=== PATIENT | female | born 1935 | race African-American/Black ===

== ENCOUNTER → 2017-08-13 | Outpatient (CLI) | payer MEDICARE ==
[2017-08-13 09:50] LABS: Basophils # (A) 0.1 k/uL (0-0.2); Basophils % (A) 1 %; Eosinophils # (A) 0.1 k/uL (0-0.7); Eosinophils % (A) 1 %; HCT 45.4 % (34.0-46.0); HGB 14.6 gm/dL (11.4-16.0); Lymphocytes # (A) 1.9 k/uL (1.0-4.8); Lymphocytes % (A) 30 %; MCHC 32.1 g/dL (31.0-37.0); MCV 93.4 fL (80.0-100.0); Mean Platelet Volume 7.4; Monocytes # (A) 0.5 k/uL (0-1.0); Monocytes % (A) 9 %; Neutrophils # (A) 3.6 k/uL (1.3-7.7); Neutrophils % (A) 57 %; Platelet Count 377 k/uL (150-450); RBC 4.86 m/uL (3.80-5.40); RDW 13.8 % (11.5-15.5); WBC 6.4 k/uL (3.8-10.6)
[2017-08-13 10:21] LABS: Calcium 9.4 mg/dL (8.4-10.2); Potassium 3.8 mmol/L (3.5-5.1); Total Bilirubin 0.9 mg/dL (0.2-1.3); Total Protein 6.9 g/dL (6.3-8.2)
== END | disposition home or self-care (01) ==
LOC: LABWHC1 09:18
PROVIDERS: ATTEND Internal Medicine Critical Care Medicine
DX: I10 Essential (primary) hypertension (principal); J30.9 Allergic rhinitis, unspecified; J44.9 Chronic obstructive pulmonary disease, unspecified; R74.8 Abnormal levels of other serum enzymes
CPT/HCPCS: 36415; 80053; 82785; 85025

== ENCOUNTER → 2017-08-18 | Outpatient (CLI) | payer MEDICARE ==
--- NOTE | 2017-08-18 12:55 | CT ---
EXAMINATION TYPE: CT chest wo con DATE OF EXAM: 08/18/2017 COMPARISON: 10/30/2014 HISTORY: 81-year-old female Right lower lobe pneumonia TECHNIQUE: Contiguous axial scanning of the chest without IV contrast. Coronal and sagittal reconstru ctions performed. CT DLP: 237.4 mGycm Automated exposure control for dose reduction was used. FINDINGS: The heart is normal size without pericardial effusion. Coronary vessel calcifications are present in remarkable for coronary artery disease. Aorta normal caliber with mild atherosclerotic arch calcifications and conventional arch vessel branc derrick anatomy. Scattered nonenlarged mediastinal lymph nodes. No thoracic lymphadenopathy by CT size criteria. Marked emphysematous changes in the upper lungs with some stable strandy scarring in the right middle lobe and inferior lingula. There is some patchy density at the left base which has a linear appearan ce suggesting atelectasis or some progressive scarring compared to 2014. No tania consolidation or pl eural effusion. Visualized upper abdomen redemonstrates a dominant 5.4 cm cyst left liver lobe and smaller anterior 1 .3 cm cyst with punctate calcification. Cholecystectomy clips. Anterior splenule. Gentle reverse S-shaped scoliosis and associated disc/endplate degenerative change. No osseous destru ctive process. IMPRESSION: 1. COPD WITH AT LEAST MODERATE EMPHYSEMATOUS CHANGE. 2. STABLE STRANDY SCARRING RIGHT MIDDLE LOBE AND INFERIOR LINGULA. THERE ARE NEW STRANDY DENSITIES AT THE LEFT BASE SUGGESTING ATELECTASIS OR PROGRESSIVE SCARRING COMPARED TO 2014. NO ACUTE PROCESS SEEN . 3. PROMINENT 5.4 CM LEFT LIVER LOBE CYST REDEMONSTRATED.
== END | disposition home or self-care (01) ==
LOC: RADCTMAIN 11:52
PROVIDERS: ATTEND Internal Medicine Critical Care Medicine
DX: J44.9 Chronic obstructive pulmonary disease, unspecified (principal); J43.9 Emphysema, unspecified; J98.4 Other disorders of lung; Z88.5 Allergy status to narcotic agent
CPT/HCPCS: 71250

== ENCOUNTER → 2017-08-18 | Outpatient (CLI) | payer MEDICARE ==
[2017-08-18 15:50] LABS: Amylase 76 U/L (30-110); Lipase 173 U/L (23-300)
[2017-08-18 19:56] LABS: Helicobacter pylori IgG Abs 0.79 U/mL
[2017-08-18 20:20] LABS: Hepatitis A Antibody IgM Non-Reactive (Non-Reactive); Hepatitis B Core IgM Non-Reactive (Non-Reactive)
[2017-08-20 10:04] LABS: ALT 768 U/L (9-52); AST 420 U/L (14-36); Alkaline Phosphatase 161 U/L (38-126)
== END | disposition home or self-care (01) ==
LOC: LABWHC1 15:07
PROVIDERS: ATTEND Nurse Practitioner Adult Health
DX: R74.8 Abnormal levels of other serum enzymes (principal)
CPT/HCPCS: 36415; 80074; 82150; 83690; 84075; 84450; 84460; 86677

== ENCOUNTER → 2017-09-06 | Outpatient (CLI) | payer MEDICARE ==
--- NOTE | 2017-09-06 09:37 | US ---
EXAMINATION TYPE: US abdomen limited DATE OF EXAM: 09/06/2017 COMPARISON: CT scan 08/18/2017 CLINICAL HISTORY: elev liver enz R74.8, RUQ R10.11 Abn level serum e. History of liver cysts, elevate d liver enzymes, history of cholecystectomy EXAM MEASUREMENTS: Liver Length: 12.1 cm Gallbladder Wall: surgically absent CBD: 0.4 cm Right Kidney: 9.0 x 4.1 x 4.5 cm Pancreas: obscured by overlying midline bowel gas Liver: 4.5 x 5.5 x 5.6cm cyst left lobe with smaller 1.2cm septated cyst anterior Gallbladder: surgically absent Evidence for sonographic Munguia's sign: no CBD: wnl Right Kidney: visualized portions wnl, inferior pole limited by overlying bowel gas IMPRESSION: 1. Hepatic cysts
--- NOTE | 2017-09-06 10:05 | CT ---
EXAMINATION TYPE: CT abdomen pelvis wo con DATE OF EXAM: 09/06/2017 COMPARISON: 08/18/2017 HISTORY: RUQ pain, Increased liver enzymes, Abnormal level of other serum enzymes. S/P cholecystecto my CT DLP: 876 mGycm Automated exposure control for dose reduction was used. TECHNIQUE: Helical acquisition of images was performed from the lung bases through the pelvis. FINDINGS: LUNG BASES: Marked emphysematous changes in the upper lungs with some stable strandy scarring in the right middle lobe and inferior lingula. There is some patchy density at the left base which has a eddie ear appearance suggesting atelectasis or some progressive scarring compared to 2015. No tania consoli dation or pleural effusion. . LIVER/GB: Visualized upper abdomen redemonstrates a dominant 5.4 cm cyst left liver lobe and smaller anterior 1.3 cm cyst with punctate calcification. Postcholecystectomy clips noted. PANCREAS: No significant abnormality is seen. SPLEEN: No significant abnormality is seen. ADRENALS: No significant abnormality is seen. KIDNEYS: No significant abnormality is seen. URINARY BLADDER: No significant abnormality is seen. ADENOPATHY: None visualized. OSSEOUS STRUCTURES: Hypertrophic and degenerative changes spine noted.. BOWEL: No significant abnormality is seen. OTHER: Aorta of normal caliber. There is atherosclerotic changes. IMPRESSION: STABLE HEPATIC CYSTS.
== END | disposition home or self-care (01) ==
LOC: RADUSMAIN 08:45
PROVIDERS: ATTEND Internal Medicine Critical Care Medicine
DX: K76.89 Other specified diseases of liver (principal)
CPT/HCPCS: 74176; 76705

== ENCOUNTER → 2017-09-08 | Outpatient (CLI) | payer MEDICARE ==
[2017-09-08 15:31] LABS: Basophils # (A) 0.1 k/uL (0-0.2); Basophils % (A) 1 %; Eosinophils # (A) 0.1 k/uL (0-0.7); Eosinophils % (A) 1 %; HCT 45.6 % (34.0-46.0); HGB 14.3 gm/dL (11.4-16.0); Lymphocytes # (A) 1.7 k/uL (1.0-4.8); Lymphocytes % (A) 28 %; MCH 29.2 pg (25.0-35.0); MCHC 31.5 g/dL (31.0-37.0); MCV 92.9 fL (80.0-100.0); Mean Platelet Volume 7.2; Monocytes # (A) 0.4 k/uL (0-1.0); Monocytes % (A) 7 %; Neutrophils # (A) 3.9 k/uL (1.3-7.7); Neutrophils % (A) 62 %; Platelet Count 363 k/uL (150-450); RBC 4.91 m/uL (3.80-5.40); RDW 13.7 % (11.5-15.5); WBC 6.2 k/uL (3.8-10.6)
[2017-09-08 15:47] LABS: Albumin 4.2 g/dL (3.5-5.0); Calcium 9.9 mg/dL (8.4-10.2); Total Bilirubin 0.3 mg/dL (0.2-1.3)
[2017-09-08 20:10] LABS: Iron Saturation 41.24 (12.00-45.00); Protein, Total 6.8 g/dL (6.2-8.2)
[2017-09-09 11:47] LABS: Ceruloplasmin 30.6 mg/dL (20.0-60.0)
== END | disposition home or self-care (01) ==
LOC: LABWHC1 15:10
PROVIDERS: ATTEND Internal Medicine Gastroenterology
DX: R94.5 Abnormal results of liver function studies (principal)
CPT/HCPCS: 36415; 80053; 82103; 82390; 82728; 83516; 83540; 83550; 84165; 85025; 86038

== ENCOUNTER → 2017-11-29 | Outpatient (CLI) | payer MEDICARE, BC ==
[2017-11-29 07:43] LABS: Basophils # (A) 0.1 k/uL (0-0.2); Basophils % (A) 1 %; Eosinophils # (A) 0.3 k/uL (0-0.7); Eosinophils % (A) 3 %; HCT 43.8 % (34.0-46.0); HGB 14.5 gm/dL (11.4-16.0); Lymphocytes # (A) 1.9 k/uL (1.0-4.8); Lymphocytes % (A) 22 %; MCH 31.6 pg (25.0-35.0); MCHC 33.1 g/dL (31.0-37.0); MCV 95.5 fL (80.0-100.0); Mean Platelet Volume 6.4; Monocytes # (A) 0.4 k/uL (0-1.0); Monocytes % (A) 5 %; Neutrophils # (A) 5.8 k/uL (1.3-7.7); Neutrophils % (A) 69 %; Platelet Count 297 k/uL (150-450); RBC 4.59 m/uL (3.80-5.40); RDW 12.8 % (11.5-15.5); WBC 8.5 k/uL (3.8-10.6)
--- NOTE | 2017-11-29 08:57 | CT ---
EXAMINATION TYPE: CT sinus wo con DATE OF EXAM: 11/29/2017 COMPARISON: CT facial bones February 16, 2013 HISTORY: Chronic sinusitis with nasal/sinus polyps per order, moderate persistent asthma with acute e xacerbation . CT DLP: 635.1 mGycm. Automated Exposure Control for Dose Reduction was Utilized. TECHNIQUE: CT scan of the sinuses is performed without contrast, axial images are obtained, coronal r eformatted images are also reviewed. FINDINGS: The paranasal sinuses including the frontal, ethmoid, sphenoid, and maxillary sinuses bila terally are well-aerated without abnormal opacification. The ostiomeatal complex is patent bilateral ly on the coronal images. Nasal septum remains slightly deviated to right of midline Visualized portion of mastoid air cells show no abnormal opacification. The globes are intact bilate rally. Visualized brain parenchyma shows fairly moderate diffuse cerebral atrophy and chronic small v essel ischemic change . IMPRESSION: The sinuses remain clear and the ostiomeatal complex remains patent bilaterally.
== END | disposition home or self-care (01) ==
LOC: RADCTMAIN 07:03
PROVIDERS: ATTEND Allergy & Immunology
DX: J45.41 Moderate persistent asthma with (acute) exacerbation (principal)
CPT/HCPCS: 36415; 70486; 82785; 85025

== ENCOUNTER → 2017-12-16 | Outpatient (CLI) | payer MEDICARE, BC ==
[2017-12-16 15:18] LABS: Basophils % (A) 1 %; Eosinophils # (A) 0.2 k/uL (0-0.7); Eosinophils % (A) 2 %; HCT 43.9 % (34.0-46.0); HGB 14.2 gm/dL (11.4-16.0); Lymphocytes # (A) 1.8 k/uL (1.0-4.8); Lymphocytes % (A) 25 %; MCHC 32.4 g/dL (31.0-37.0); MCV 95.5 fL (80.0-100.0); Mean Platelet Volume 6.7; Monocytes # (A) 0.5 k/uL (0-1.0); Monocytes % (A) 6 %; Neutrophils # (A) 4.5 k/uL (1.3-7.7); Neutrophils % (A) 64 %; Platelet Count 482 k/uL (150-450); RBC 4.59 m/uL (3.80-5.40); RDW 12.8 % (11.5-15.5); WBC 7.1 k/uL (3.8-10.6)
[2017-12-16 15:25] LABS: Albumin 4.3 g/dL (3.5-5.0); Calcium 9.8 mg/dL (8.4-10.2); Potassium 4.5 mmol/L (3.5-5.1); Total Bilirubin 0.4 mg/dL (0.2-1.3); Total Protein 6.8 g/dL (6.3-8.2)
[2017-12-17 09:29] LABS: Alternaria alternata IgE <0.10 kU/L; Birch IgE <0.10 kU/L; Cat Epith & Dander IgE <0.10 kU/L; Cockroach IgE <0.10 kU/L; Dermato. farinae IgE 0.11 kU/L; Dog Dander IgE <0.10 kU/L; Elm IgE <0.10 kU/L; Maple (Box Elder) IgE <0.10 kU/L; Oak IgE <0.10 kU/L; Ragweed,Common IgE <0.10 kU/L; Red Top (Bentgrass) IgE <0.10 kU/L
== END | disposition home or self-care (01) ==
LOC: LABWHC1 14:53
PROVIDERS: ATTEND Internal Medicine Critical Care Medicine
DX: J44.9 Chronic obstructive pulmonary disease, unspecified (principal); T78.40XA Allergy, unspecified, initial encounter; R94.5 Abnormal results of liver function studies
CPT/HCPCS: 36415; 80053; 82785; 85025; 86003

== ENCOUNTER 2018-01-08 05:31 | Emergency (ER) | payer MEDICARE, BC ==
[2018-01-08] MEDS ORDERED: ALBUTEROL NEBULIZED 2.5 MG/3 ML INHALATION STA (05:57)
[2018-01-08 05:58] VITALS: RESP 18
[2018-01-08 06:09] LABS: Basophils # (A) 0.1 k/uL (0-0.2); Basophils % (A) 1 %; Eosinophils # (A) 0.4 k/uL (0-0.7); Eosinophils % (A) 4 %; HCT 46.2 % (34.0-46.0); HGB 15.2 gm/dL (11.4-16.0); Lymphocytes # (A) 2.2 k/uL (1.0-4.8); Lymphocytes % (A) 25 %; MCH 31.8 pg (25.0-35.0); MCHC 32.8 g/dL (31.0-37.0); Mean Platelet Volume 7.1; Monocytes # (A) 0.4 k/uL (0-1.0); Monocytes % (A) 4 %; Neutrophils # (A) 5.5 k/uL (1.3-7.7); Neutrophils % (A) 64 %; Platelet Count 302 k/uL (150-450); RBC 4.76 m/uL (3.80-5.40); RDW 12.7 % (11.5-15.5); WBC 8.6 k/uL (3.8-10.6)
[2018-01-08 06:15] LABS: Partial Thromboplastin Time 23.3 sec (22.0-30.0); Prothrombin Time 9.6 sec (9.0-12.0)
--- NOTE | 2018-01-08 06:18 | XR ---
EXAMINATION TYPE: XR chest 1V portable DATE OF EXAM: 01/08/2018 HISTORY: chest pain. REFERENCE: Previous study dated 01/04/2018. FINDINGS: The lungs are clear. Pleural spaces are clear. The heart is not enlarged.. IMPRESSION: NO ACTIVE CARDIOTHORACIC ABNORMALITY.
[2018-01-08 06:33] LABS: Albumin 3.9 g/dL (3.5-5.0); Calcium 9.3 mg/dL (8.4-10.2); Magnesium 2.4 mg/dL (1.6-2.3); Potassium 4.2 mmol/L (3.5-5.1); Total Bilirubin 0.5 mg/dL (0.2-1.3); Total Protein 6.4 g/dL (6.3-8.2)
[2018-01-08 06:36] LABS: Creatine Kinase 96 U/L (30-135)
[2018-01-08 06:49] LABS: Creatine Kinase MB 0.8 ng/mL (0.0-2.4); Troponin I <0.012 ng/mL (0.000-0.034)
--- NOTE | 2018-01-08 07:55 | ED ---
Chest Pain HPI - General Chief Complaint: Chest Pain Stated Complaint: chest discomfort Time Seen by Provider: 01/08/18 05:48 Source: patient Mode of arrival: ambulatory Limitations: no limitations - History of Present Illness Initial Comments: This patient is an 82-year-old woman with history of COPD who presents to be evaluated for chest pain. She states that the pain is in the substernal area and to both sides. The pain came on at rest and is not exertional. She had seen Dr. Carney, and was told that her bronchitis was flaring up and that she was given a prescription for amoxicillin and a steroid to take. The patient was concerned that the pain may also be related to her heart so she presents for evaluation here. She has not had any anginal type symptoms, including no diaphoresis, nausea or vomiting, lightheadedness or palpitations. She does admit to an increase in her baseline cough. MD Complaint: chest pain Onset/Timin -: days(s) Onset: during rest Pain Location: substernal, left chest, right chest Severity: mild Quality: other (Burning) Consistency: constant Improves With: nothing Worsens With: nothing Other Symptoms: cough Treatments Prior to Arrival: other (Amoxicillin) - Related Data Home Medications Medication Instructions Recorded Confirmed Aspirin 81 mg PO DAILY 10/30/14 01/08/18 Losartan Potassium 100 mg PO 10/30/14 01/08/18 Metoprolol Succinate [Toprol XL] 50 mg PO [facility] 10/30/14 01/08/18 Azithromycin [Zithromax] 500 mg PO DAILY 01/08/18 01/08/18 Omeprazole 20 mg PO 01/08/18 01/08/18 Allergies Allergy/AdvReac Type Severity Reaction Status Date / Time hydrocodone bitartrate AdvReac states Verified 04/10/16 07:59 [From Vicodin] "doesn't make me feel good" prednisone AdvReac Hallucinati Verified 04/10/16 07:59 ons Review of Systems ROS Statement: Those systems with pertinent positive or pertinent negative responses have been documented in the HPI. ROS Other: All systems not noted in ROS Statement are negative. Constitutional: Denies: fever, chills, weakness Respiratory: Reports: cough, dyspnea, wheezes. Denies: hemoptysis Cardiovascular: Reports: chest pain. Denies: palpitations, orthopnea, edema, syncope Gastrointestinal: Denies: abdominal pain, nausea, vomiting Genitourinary: Denies: dysuria, hematuria Musculoskeletal: Denies: back pain Skin: Denies: rash Neurological: Denies: headache EKG Findings - EKG Results: EKG: interpreted by SALINA HUERTA, sinus rhythm (Right proximal 75 bpm), normal axis , normal QRS, normal ST/T - AL, Pacemaker, Normal: Normal tracing: normal tracing Past Medical History Past Medical History: Asthma, COPD, Hypertension, Liver Disease Additional Past Medical History / Comment(s): Hx stomach ulcer,Large colon polyp removed 2 yrs ago,cysts on liver,urinary leakage History of Any Multi-Drug Resistant Organisms: None Reported Past Surgical History: Cholecystectomy, Hysterectomy, Orthopedic Surgery Past Anesthesia/Blood Transfusion Reactions: No Reported Reaction Additional Past Anesthesia/Blood Transfusion Reaction / Comment(s): no hx blood transfusion Past Psychological History: No Psychological Hx Reported Smoking Status: Former smoker Past Alcohol Use History: Occasional Past Drug Use History: None Reported - Past Family History Sister(s) Family Medical History: Cancer Additional Family Medical History / Comment(s): #1 sister colon,# 2 sister lung Father Family Medical History: Cancer Additional Family Medical History / Comment(s): prostate Mother Family Medical History: Asthma Additional Family Medical History / Comment(s): heart problems General Exam Limitations: no limitations General appearance: alert, in no apparent distress Head exam: Present: atraumatic, normocephalic Eye exam: Present: normal appearance ENT exam: Present: normal oropharynx Respiratory exam: Present: wheezes. Absent: respiratory distress, rales, rhonchi, stridor, accessory muscle use, decreased breath sounds, prolonged expiratory Cardiovascular Exam: Present: regular rate, normal rhythm, normal heart sounds. Absent: systolic murmur, diastolic murmur, rubs, gallop GI/Abdominal exam: Present: soft. Absent: distended, tenderness, guarding, rebound, rigid, mass Extremities exam: Present: normal inspection, normal capillary refill. Absent: pedal edema, calf tenderness Back exam: Present: normal inspection. Absent: CVA tenderness (R), CVA tenderness (L) Neurological exam: Present: alert Skin exam: Present: warm, dry, intact, normal color. Absent: rash Course Vital Signs 01/08/18 01/08/18 01/08/18 05:34 05:56 06:25 Temperature 98.6 F Pulse Rate 68 61 Pulse Rate [ 73 Privacy Manager ] Respiratory 20 18 Rate Blood Pressure 150/92 O2 Sat by Pulse 98 Oximetry 01/08/18 01/08/18 06:27 06:41 Temperature Pulse Rate 61 64 Pulse Rate [ Privacy Manager ] Respiratory 18 Rate Blood Pressure 157/74 O2 Sat by Pulse 96 Oximetry Disposition Clinical Impression: COPD with acute exacerbation, Chest pain Disposition: HOME SELF-CARE Condition: Good Instructions: Chest Pain (ED), COPD (Chronic Obstructive Pulmonary Disease) (ED ) Is patient prescribed a controlled substance at d/c from ED?: No Referrals: Sanju Ashley MD [Primary Care Provider] - 1-2 days
[2018-01-08 08:13] VITALS: BP 134/66; PULSE 61; TEMP 97.4
== END 2018-01-08 08:11 | disposition home or self-care (01) ==
LOC: EC 05:31
DX: J44.1 Chronic obstructive pulmonary disease with (acute) exacerbation (principal); I10 Essential (primary) hypertension; Z87.891 Personal history of nicotine dependence; Z79.82 Long term (current) use of aspirin; Z79.899 Other long term (current) drug therapy; Z88.5 Allergy status to narcotic agent; Z88.8 Allergy status to other drugs, medicaments and biological substances; Z82.5 Family history of asthma and other chronic lower respiratory diseases
CPT/HCPCS: 36415; 71045; 80053; 82550; 82553; 83735; 84484; 85025; 85610; 85730; 93005; 94640; 99285

== ENCOUNTER 2018-02-04 11:13 | Day surgery (SDC) | payer MEDICARE, BC ==
[2018-02-02 10:51] VITALS: BMI 28.3
[~2018-02-04 11:13] MED LIST: LACTATED RINGERS 1,000 ML IV SCH; LIDOCAINE 1% 20 ML VIAL (10MG/ML) FOR IV START INTRADERMA PRN; MIDAZOLAM 2 MG/2 ML VIAL IV PRN
[2018-02-04 13:06] VITALS: RESP 16; TEMP 98.2
[2018-02-04] MEDS ORDERED: PROPOFOL 10 MG/ML 20 ML VIAL IV ONE (13:44)
--- NOTE | 2018-02-04 13:53 | P.PCN ---
Date of Procedure: 02/04/18 Procedure(s) Performed: BRIEF HISTORY: Patient is a 82-year-old, pleasant, female, scheduled for an upper endoscopy as a part of value should of chronic cough and intermittent dysphagia to solids for the last several months duration.. PROCEDURE PERFORMED: Esophagogastroduodenoscopy with biopsy. PREOPERATIVE DIAGNOSIS: Intermittent dysphagia to solids and chronic cough. IV sedation per anesthesia. PROCEDURE: After informed consent was obtained, the patient was brought into the endoscopy unit. IV sedation was administered by Anesthesia under continuous monitoring. Initially the Olympus GIF-140 video endoscope was inserted into the mouth. Esophagus intubated without any difficulty. It was gradually advanced into the stomach and duodenum and carefully examined. The bulb and the second part of the duodenum appeared normal. The scope at this time was withdrawn to the stomach, adequately insufflated with air, and upon careful examination, mucosa of the antrum, body, cardia and the fundus appeared normal. The scope was then withdrawn into the esophagus. Small sliding Hiatal hernia noted. The GE junction was located at 39 cm from the incisors. The esophagus appeared normal. There were no erosions or ulcerations seen. Biopsies were done from the mid and distal esophagus and the patient tolerated the procedure well. IMPRESSION: 1. Small sliding-type hiatal hernia. 2. No evidence of esophagitis or esophageal stricture. RECOMMENDATIONS: The findings of this examination were discussed with the patient as well as a family. She was advised to follow with the biopsy results..
[2018-02-04 14:50] VITALS: BP 129/79; PULSE 94
== END 2018-02-04 15:04 | disposition home or self-care (01) ==
LOC: ORWHC2ENDO 11:13
PROVIDERS: ATTEND Internal Medicine Gastroenterology
DX: K44.9 Diaphragmatic hernia without obstruction or gangrene (principal); K20.9 Esophagitis, unspecified; Z88.5 Allergy status to narcotic agent; Z88.8 Allergy status to other drugs, medicaments and biological substances; J44.9 Chronic obstructive pulmonary disease, unspecified; Z79.899 Other long term (current) drug therapy; Z90.49 Acquired absence of other specified parts of digestive tract
CPT/HCPCS: 88305; 43239; J2704

== ENCOUNTER → 2018-05-04 | Outpatient (CLI) | payer MEDICARE, BC | LOC: LABWHC1 11:27 | PROVIDERS: ATTEND Internal Medicine Critical Care Medicine | DX: J44.1 Chronic obstructive pulmonary disease with (acute) exacerbation (principal) | CPT/HCPCS: 36415; 82784 ==

== ENCOUNTER → 2018-05-31 | Outpatient (CLI) | payer MEDICARE, BC ==
--- NOTE | 2018-06-02 10:03 | MM ---
Reason for exam: screening (asymptomatic). Last mammogram was performed 1 year and 2 months ago. History: Patient is postmenopausal. Family history of breast cancer in 2 cousins. Took estrogen for 21 years beginning at age 41. Physical Findings: A clinical breast exam by your physician is recommended on an annual basis and results should be correlated with mammographic findings. MG Screening Mammo w CAD Bilateral CC and MLO view(s) were taken. Prior study comparison: April 08, 2017, bilateral MG 3d screening mammo w/cad. March 03, 2016, bilateral MG 3d screening mammo w/cad. There are scattered fibroglandular densities. No suspicious abnormality. No significant changes when compared with prior studies. ASSESSMENT: Negative, BI-RAD 1 RECOMMENDATION: Routine screening mammogram of both breasts in 1 year.
== END | disposition home or self-care (01) ==
LOC: RADMAMWWP 13:43
PROVIDERS: ATTEND Internal Medicine
DX: Z12.31 Encounter for screening mammogram for malignant neoplasm of breast (principal)
CPT/HCPCS: 77067

== ENCOUNTER 2018-06-23 14:10 | Observation (INO) | payer MEDICARE, BC ==
[2018-06-23] MEDS ORDERED: ASPIRIN 81 MG PO STA (14:44)
--- NOTE | 2018-06-23 15:05 | XR ---
EXAMINATION TYPE: XR chest 2V DATE OF EXAM: 06/23/2018 COMPARISON: Chest x-ray January 08, 2018. HISTORY: Increasing chest pain since last night. TECHNIQUE: Frontal and lateral views of the chest are obtained. FINDINGS: There is chronic parenchymal change without suspicious focal air space opacity, pleural ef fusion, or pneumothorax seen. Slightly elevated left hemidiaphragm is redemonstrated. The cardiac manolo houette size is within normal limits with atherosclerotic change in the aortic knob. S-shaped scolios is is redemonstrated. Overlying EKG leads are again seen. IMPRESSION: Chronic changes without acute pulmonary process.
[2018-06-23 15:11] LABS: Basophils # (A) 0.1 k/uL (0-0.2); Basophils % (A) 1 %; Eosinophils # (A) 0.6 k/uL (0-0.7); Eosinophils % (A) 8 %; HCT 43.9 % (34.0-46.0); HGB 14.6 gm/dL (11.4-16.0); Lymphocytes # (A) 1.7 k/uL (1.0-4.8); Lymphocytes % (A) 22 %; MCH 31.1 pg (25.0-35.0); MCHC 33.3 g/dL (31.0-37.0); MCV 93.2 fL (80.0-100.0); Mean Platelet Volume 7.3; Monocytes # (A) 0.4 k/uL (0-1.0); Monocytes % (A) 5 %; Neutrophils # (A) 4.9 k/uL (1.3-7.7); Neutrophils % (A) 63 %; Platelet Count 327 k/uL (150-450); RBC 4.71 m/uL (3.80-5.40); RDW 13.4 % (11.5-15.5); WBC 7.7 k/uL (3.8-10.6)
[2018-06-23 15:21] LABS: Albumin 4.1 g/dL (3.5-5.0); Magnesium 2.1 mg/dL (1.6-2.3); Potassium 4.5 mmol/L (3.5-5.1); Total Bilirubin 0.6 mg/dL (0.2-1.3); Total Protein 7.1 g/dL (6.3-8.2)
[2018-06-23 15:26] LABS: Creatine Kinase 65 U/L (30-135)
[2018-06-23 15:29] LABS: INR 0.9 (<1.2); Partial Thromboplastin Time 23.9 sec (22.0-30.0); Prothrombin Time 9.9 sec (9.0-12.0)
[2018-06-23 15:39] LABS: Creatine Kinase MB 0.3 ng/mL (0.0-2.4); Troponin I <0.012 ng/mL (0.000-0.034)
[2018-06-23] MEDS ORDERED: NITROGLYCERIN SL TABS 0.4 MG TAB SUBLINGUAL PRN (15:54)
[2018-06-23] MEDS ORDERED: HEPARIN SODIUM,PORCINE 5,000 UNIT/ML 1 ML VIAL IV ONE (15:54)
--- NOTE | 2018-06-23 15:54 | ED ---
Chest Pain HPI - General Chief Complaint: Chest Pain Stated Complaint: Chest pain Time Seen by Provider: 06/23/18 14:36 Source: patient, RN notes reviewed Mode of arrival: wheelchair Limitations: no limitations - History of Present Illness Initial Comments: 82-year-old female presents emergency Department with chief complaint of chest pain. Patient states this started last night and has not resolved today. She does states that it waxes and wanes. Patient states it's in the substernal region. Patient states that she has a history of hypertension denies hyperlipidemia, diabetes. She does have underlying COPD. Patient states her primary care physician is Dr. Ashley. Patient also has Dr. Gilbert as her thread puller. She has not felt increased shortness of breath at home she has tried her home WITH no relief of symptoms. Patient takes an 81 mg aspirin daily. Patient denies any diaphoresis, nausea, vomiting, extremity pain. - Related Data Home Medications Medication Instructions Recorded Confirmed Aspirin 81 mg PO DAILY 10/30/14 02/04/18 Losartan Potassium 100 mg PO HS 10/30/14 02/04/18 Metoprolol Succinate [Toprol XL] 50 mg PO QAM 10/30/14 02/04/18 amLODIPine BESYLATE [Norvasc] 10 mg PO DAILY 02/02/18 02/04/18 Allergies Allergy/AdvReac Type Severity Reaction Status Date / Time hydrocodone bitartrate AdvReac states Verified 06/23/18 15:10 [From Vicodin] "doesn't make me feel good" prednisone AdvReac Hallucinati Verified 06/23/18 15:10 ons Review of Systems ROS Statement: Those systems with pertinent positive or pertinent negative responses have been documented in the HPI. ROS Other: All systems not noted in ROS Statement are negative. EKG Findings - EKG Comments: EKG Findings:: EKG performed at 14:48 normal sinus rhythm with a rate of 87 TN 158 QRS 84 QT/QTC 380/457 Past Medical History Past Medical History: Asthma, COPD, Hypertension, Liver Disease Additional Past Medical History / Comment(s): Hx stomach ulcer,,cysts on liver, urinary leakage History of Any Multi-Drug Resistant Organisms: None Reported Past Surgical History: Cholecystectomy, Hysterectomy, Orthopedic Surgery Additional Past Surgical History / Comment(s): KNEE SCOPE-UNSURE WHICH SIDE. COLONOSCOPY-LARGE POLYP REMOVED Past Anesthesia/Blood Transfusion Reactions: No Reported Reaction Additional Past Anesthesia/Blood Transfusion Reaction / Comment(s): no hx blood transfusion Past Psychological History: No Psychological Hx Reported Smoking Status: Former smoker Past Alcohol Use History: None Reported Past Drug Use History: None Reported - Past Family History Sister(s) Family Medical History: Cancer Additional Family Medical History / Comment(s): #1 sister colon,# 2 sister lung Father Family Medical History: Cancer Additional Family Medical History / Comment(s): prostate Mother Family Medical History: Asthma Additional Family Medical History / Comment(s): heart problems General Exam Limitations: no limitations General appearance: alert, in no apparent distress Head exam: Present: atraumatic, normocephalic, normal inspection Eye exam: Present: normal appearance, PERRL, EOMI. Absent: scleral icterus, conjunctival injection, periorbital swelling ENT exam: Present: normal exam, normal oropharynx, mucous membranes moist, TM's normal bilaterally Neck exam: Present: normal inspection, full ROM. Absent: tenderness, meningismus, lymphadenopathy Respiratory exam: Present: normal lung sounds bilaterally. Absent: respiratory distress, wheezes, rales, rhonchi, stridor Cardiovascular Exam: Present: regular rate, normal rhythm, normal heart sounds. Absent: systolic murmur, diastolic murmur, rubs, gallop, clicks GI/Abdominal exam: Present: soft, normal bowel sounds. Absent: distended, tenderness, guarding, rebound, rigid Back exam: Absent: CVA tenderness (R), CVA tenderness (L) Skin exam: Present: warm, dry, intact, normal color. Absent: rash Course Vital Signs 06/23/18 14:14 Temperature 98.4 F Pulse Rate 91 Respiratory 20 Rate Blood Pressure 150/73 O2 Sat by Pulse 95 Oximetry Chest Pain MDM - MDM 82-year-old female presented to emergency department for chest pain. Patient EKG, lab work and chest x-ray. No acute findings at this time. Patient will be started on heparin admitted for cardiac rule out. Disposition Clinical Impression: Chest pain Disposition: ADMITTED IP TO THIS [facility] Condition: Stable Referrals: Sanju Ashley MD [Primary Care Provider] - 1-2 days
[2018-06-23] MEDS ORDERED: HEPARIN SOD,PORK IN 0.45% NACL 25,000 UNIT in 0.45% NACL 1 250ML.BAG IV SCH (16:00)
--- NOTE | 2018-06-23 20:04 | HP ---
HISTORY AND PHYSICAL HISTORY OF PRESENT ILLNESS: Mrs. Mills is an 82-year-old female who presents to the emergency room with chest pain. She is a patient of Dr. Ashley, for whom I am covering. Apparently yesterday evening she developed some anterior/posterior sternal chest pain that lasted up to 15 minutes. She points right to the mid part of her sternum. No radiation of the pain. No nausea or vomiting. No definite pleuritic component to it. She states she did get over a cold about a week or so ago but has not had any other recent coughing or injury or trauma to the area. No fever or chills. The patient has not had pain like this before. Apparently it has been recurring throughout the night, and this morning in fact it was worse enough yesterday that she almost came to the emergency room. With the recurrence of the pain today, she returns to the emergency room at this time. The patient has no definite history of coronary artery disease, but she does have a history of hypertension. There is a previous smoking history and likely underlying COPD. She has a history of liver disease in the past. She has had previous surgeries that include cholecystectomy and hysterectomy. She has had previous arthroscopy and previous colonoscopy with removal of polyps in the past. HOME MEDICATIONS: Include: 1. Aspirin 81 mg. 2. Losartan 100 mg. 3. Metoprolol-XL 50 mg. 4. Amlodipine 10 mg daily. 5. Vitamin D3. 6. She is on pulmonary inhalers that include her Spiriva 1 capsule daily and Advair 500/50 one puff twice a day. ALLERGIES: She has had previous reactions apparently to prednisone with hallucinations, and Glenn affects her where she does not feel good, she states; no specific reaction. REVIEW OF SYSTEMS: Negative for any unusual headache. No visual disturbances. No nausea, vomiting. No fever, chills or cough at this time. No urinary or bowel symptomatology. No unusual edema. FAMILY HISTORY: Positive for a brother who had a myocardial infarction and also history of coronary artery disease with her mother. A sister with colon cancer and another sister with lung cancer. Her father apparently of prostate. Her mother also had asthma. SOCIAL HISTORY: She is a former smoker; states she quit 20 years ago. She does live locally with her elderly . No definite history of any excessive alcohol usage. PHYSICAL EXAMINATION: She is alert, sitting up on the stretcher in the emergency room. Her vital signs show temperature 98.4 with a pulse 91, respirations 20. Blood pressure was 150/73 but decreased to 142/76, and she was 95% saturated at one point, but last reading was 92%. Head and neck exam is atraumatic. Extraocular movements intact. Neck is not stiff. There is no adenopathy, thyromegaly or bruits detected. Lungs were clear to auscultation. Breast and pelvic exam deferred. Heart tones were regular without murmurs or rubs. Abdomen is soft and nontender. Extremities revealed no distal edema. Neurologically she is alert and oriented. No focal cranial nerve or peripheral nerve deficits at this time. LABORATORY VALUES: Normal CBC with a white count 7.7, hemoglobin 14.6 and a platelet count of 322. INR was 0.9. Electrolytes were unremarkable with potassium 4.5. BUN and creatinine were 11 and 0.85, giving her a GFR of 7. Blood sugar was 108. Other liver function tests all were unremarkable with normal AST and ALT. Troponin was less than 0.012. BNP was 117, albumin 4.1. The patient did have a chest x-ray which did not show any acute changes. EKG revealed normal sinus rhythm, also without any acute ischemic changes. OVERALL IMPRESSION AT THIS POINT: An 82-year-old female with a history of recurrent chest pain, substernal, with associated with risk factors including hypertension, smoking history, and family history positive. I had a long discussion with the patient at the bedside. Overall impression is chest pain of undetermined origin. Still possibility of underlying coronary artery disease. PLANS: At this point, plans are to continue with heparin therapy. Patient to be placed under observation. Follow-up enzymes to be performed. Cardiology consult. Further recommendations and treatment pending clinical response and results of above. MMODL / IJN: [id number] / JL
[2018-06-23] MEDS ORDERED: LOSARTAN 50 MG TAB PO SCH (21:00)
[2018-06-23] MEDS: SYMBICORT 160-4.5 MCG INHALER INHALATION SCH (21:11)
[2018-06-23 23:10] LABS: Creatine Kinase 60 U/L (30-135)
[2018-06-23 23:23] LABS: Creatine Kinase MB 0.3 ng/mL (0.0-2.4); Troponin I <0.012 ng/mL (0.000-0.034)
[2018-06-24 04:22] LABS: Mean Platelet Volume 6.9; Platelet Count 311 k/uL (150-450)
[2018-06-24 04:53] LABS: Creatine Kinase 63 U/L (30-135)
[2018-06-24 05:05] LABS: Creatine Kinase MB 0.3 ng/mL (0.0-2.4); Troponin I <0.012 ng/mL (0.000-0.034)
[2018-06-24 05:13] LABS: Cholesterol 181 mg/dL (<200); HDL Cholesterol 58 mg/dL (40-60); LDL Cholesterol,Calculated 107 mg/dL (0-99); Triglycerides 80 mg/dL (<150)
--- NOTE | 2018-06-24 07:42 | ECHOF ---
Referral Reason:chest pain MEASUREMENTS -------- HEIGHT: 170.2 cm WEIGHT: 81.6 kg BP: 150/73 RVIDd: 2.7 cm (< 3.3) IVSd: 0.9 cm (0.6 - 1.1) LVIDd: 3.6 cm (3.9 - 5.3) LVPWd: 0.9 cm (0.6 - 1.1) IVSs: 1.2 cm LVIDs: 2.6 cm LVPWs: 1.2 cm LAESV Index (A-L): 15.17 ml/m Ao Diam: 3.2 cm (2.0 - 3.7) AV Cusp: 1.9 cm (1.5 - 2.6) LA Diam: 2.5 cm (2.7 - 3.8) MV E Ajay: 0.65 m/s MV DecT: 165 ms MV A Ajay: 0.79 m/s MV E/A Ratio: 0.82 RAP: 5.00 mmHg RVSP: 17.38 mmHg FINDINGS -------- Sinus rhythm. This was a technically adequate study. The left ventricular size is normal. Left ventricular wall thickness is normal. Overall left vent ricular systolic function is normal with, an EF between 55 - 60 %. The right ventricle is normal in size and function. Normal LA size by volume 22+/-6 ml/m2. The right atrium is normal in size. There is mild aortic valve sclerosis. There is no evidence of aortic regurgitation. There is no e vidence of aortic stenosis. The mitral valve leaflets are mildly thickened. Mild mitral annular calcification present. There is trace to mild mitral regurgitation. Trace tricuspid regurgitation present. Right ventricular systolic pressure is normal at < 35 mmHg. There is no evidence of pulmonary hypertension. The pulmonic valve was not well visualized. The aortic root size is normal. Normal inferior vena cava with normal inspiratory collapse consistent with estimated right atrial pre ssure of 5 mmHg. There is no pericardial effusion. CONCLUSIONS -------- 1. Sinus rhythm. 2. This was a technically adequate study. 3. The left ventricular size is normal. 4. Left ventricular wall thickness is normal. 5. Overall left ventricular systolic function is normal with, an EF between 55 - 60 %. 6. Normal LA size by volume 22+/-6 ml/m2. 7. There is mild aortic valve sclerosis. 8. The mitral valve leaflets are mildly thickened. 9. Mild mitral annular calcification present. 10. There is trace to mild mitral regurgitation. 11. Trace tricuspid regurgitation present. 12. Right ventricular systolic pressure is normal at < 35 mmHg. 13. There is no evidence of pulmonary hypertension. 14. The pulmonic valve was not well visualized. 15. The aortic root size is normal. 16. There is no pericardial effusion. WARP SPOOLER: Nhan Buckner RDCS
[2018-06-24] MEDS: IPRATROPIUM 0.5 MG/2.5 ML NEBU INHALATION SCH ×2 (07:57→11:44)
--- NOTE | 2018-06-24 07:57 | P.PN ---
Progress Note - Text The patient is an 82-year-old female presented yesterday to the emergency room. She is a patient of Dr. Ashley for whom I am covering. Patient had recurrent substernal chest pain. She also has risk factors with hypertension, family history and previous smoking history. She does have underlying COPD. This morning patient states she has not had further problems with the chest pain. She has been on heparin through the night. Vital signs show a temperature 98.4 with a pulse of 70 respirations 18. Blood pressure 128/72 and she is 93% saturated on room air. She overall appears comfortable in no respiratory distress. She is alert and oriented. No focal neurological deficits. Laboratory The patient is anticoagulated on heparin with a PTT of 64.2. Troponins have been less than 0.0123. CPKs have been in the 60s 3. Cholesterol shows a mild LDL cholesterol elevation to 107 with total cholesterol is 181 and HDL is 58 and triglycerides are 80. Echocardiogram Showed LV size to be normal. Ejection fraction of 55-60%. Mild aortic valve sclerosis. Mild thickening of the mitral valve. Right ventricular systolic pressure was less than 35. Aortic root normal size. Impressions and plans Overall this 82-year-old female with recurrent chest pain and positive for risk factors has negative troponins. Have discussed with cardiology. Patient will be evaluated by them today. We' ll await their further recommendations. Discussed with patient and nursing staff this morning. We will continue her maintenance pulmonary medications for her COPD.
[2018-06-24] MEDS: SYMBICORT 160-4.5 MCG INHALER INHALATION SCH (07:58)
[2018-06-24 08:41] VITALS: PULSE 84; RESP 16; TEMP 98.2
[2018-06-24] MEDS ORDERED: METOPROLOL SUCCINATE (ER) 50 MG TAB.ER.24H PO SCH (09:00)
[2018-06-24] MEDS ORDERED: CHOLECALCIFEROL 1,000 UNIT TAB PO SCH (09:00)
[2018-06-24] MEDS ORDERED: ASPIRIN 325 MG TAB PO SCH (09:00)
[2018-06-24] MEDS ORDERED: amLODIPine 10 MG TAB PO SCH (09:00)
--- NOTE | 2018-06-24 10:34 | P.CRDCN ---
History of Present Illness History of present illness: This is a pleasant 82-year-old -[place] female past medical history significant for hypertension, dyslipidemia and COPD. She follows with Dr. Dietz in the office. We have been asked to see her in consultation with symptoms of tightness in the chest. She states she started with this tightness 2 nights ago while she was sitting down relaxing the pain ultimately subsided on its own but has been intermittent throughout the day yesterday pain is in the midsternal region and is associated with mild shortness of breath and wheezing. She denies any pain in the arm, back, neck or jaw. She also states she has been coughing intermittently over the previous week prior to this pain starting. She denies any further symptoms of chest discomfort since arriving to the hospital. She does continue to complain of mild shortness of breath with wheezing. She did receive a breathing treatment this morning and states that didn't seem to help mildly. Echocardiogram obtained reveals preserved left ventricular systolic function with ejection fraction 55-60%. EKG reveals sinus mechanism with no acute ST or T wave abnormalities noted. Chest x-ray reveals evidence of chronic changes with no acute cardiopulmonary process. Laboratory data reviewed, WBC 7.7, hemoglobin 14.6, platelets 311, sodium 142, potassium 4.5, creatinine 0.5, magnesium 2.1, cardiac enzymes negative 3, NT proBNP 117, LDL 107, HDL 58. Current cardiac medications include losartan 100 mg daily, amlodipine 10 mg daily, Toprol 50 mg daily and aspirin 81 mg daily. Most recent stress test obtained in the office 2014 with a Cardiolite stress test the patient walked for 3 minutes and achieved 85% of predicted maximum with no evidence of ischemia noted on EKG there was some mild apical defect noted with no reversibility. At the time of my exam: CONSTITUTIONAL: Denies fever. Denies chills. EYES: Denies blurred vision. Denies vision changes. Denies eye pain. EARS, NOSE, MOUTH & THROAT: Denies headache. Denies sore throat. Denies ear pain. CARDIOVASCULAR: Denies chest pain. Complains of shortness of breath. Denies orthopnea. Denies PND. Denies palpitations. RESPIRATORY: Complains of cough. GASTROINTESTINAL: Denies abdominal pain. Denies diarrhea. Denies constipation. Denies nausea. Denies vomiting. MUSCULOSKELETAL: Denies myalgias. INTEGUMENTARY: Denies pruitis. Denies rash. NEUROLOGIC: Denies numbness. Denies tingling. Denies weakness. PSYCHIATRIC: Denies anxiety. Denies depression. ENDOCRINE: Denies fatigue. Denies weight change. Denies polydipsia. Denies polyurina. GENITOURINARY: Denies burning, hematuria or urgency with micturation. HEMATOLOGIC: Denies history of anemia. Denies bleeding. Blood pressure 148/88 heart rate 84 afebrile maintaining oxygen saturation on room air GENERAL: This is a 82-year-old -[place] female in no apparent distress at the time of my examination. HEENT: Head is atraumatic, normocephalic. Pupils are equal, round. Sclerae anicteric. Conjunctivae are clear. Mucous membranes of the mouth are moist. Neck is supple. There is no jugular venous distention. No carotid bruit is heard. LUNGS: Expiratory wheezes, no rhonchi or rales. No chest wall tenderness is noted on palpation or with deep breathing. HEART: Regular rate and rhythm with soft systolic ejection murmur at the base, no rubs or gallops. S1 and S2 heard. ABDOMEN: Soft, nontender. Bowel sounds are heard. No organomegaly noted. EXTREMITIES: No evidence of peripheral edema and no calf tenderness noted. VASCULAR: Radial and dorsalis pedis pulses palpated, no evidence of clubbing. NEUROLOGIC: Patient is awake, alert and oriented x3. ASSESSMENT Chest pain, atypical for angina. An acute coronary event is ruled out with no EKG evidence of ischemia and negative cardiac enzymes. Ongoing wheezing and shortness of breath. Pain may be related to underlying exacerbation of COPD/ asthma. Hypertension Dyslipidemia COPD PLAN Echocardiogram has been obtained and reviewed. An acute coronary event has been ruled out. She continues to wheeze and have mild shortness of breath. We recommend discontinuation of heparin infusion and increase activity. She has no further symptoms of chest discomfort she is stable from a cardiac perspective. An appointment will be made for her to follow-up in the office for outpatient stress testing once her breathing and wheezing has subsided. Resume home cardiac medications. Thank you kindly for this consultation. Nurse Practitioner note has been reviewed, I agree with a documented findings and plan of care. Patient was seen and examined. Past Medical History Past Medical History: Asthma, COPD, Hypertension, Liver Disease, Myocardial Infarction ([place]) Additional Past Medical History / Comment(s): Hx stomach ulcer,cysts on liver > 20 years ,urinary leakage, small hiatal hernia, diverticulosis, arthritis, tinnitus leanna ears,"had a pne vaccine in past not sure of date, data analyst report writer unable to verify date at time of this admit,please f/u in am. Last Myocardial Infarction Date:: 40 years ago History of Any Multi-Drug Resistant Organisms: None Reported Past Surgical History: Cholecystectomy, Hysterectomy, Orthopedic Surgery Additional Past Surgical History / Comment(s): KNEE arthroscopy-UNSURE WHICH SIDE. COLONOSCOPY-LARGE POLYP REMOVED, egd Past Anesthesia/Blood Transfusion Reactions: No Reported Reaction Additional Past Anesthesia/Blood Transfusion Reaction / Comment(s): no hx blood transfusion Smoking Status: Former smoker - Past Family History Sister(s) Family Medical History: Cancer Additional Family Medical History / Comment(s): #1 sister colon,# 2 sister lung Father Family Medical History: Cancer Additional Family Medical History / Comment(s): prostate Mother Family Medical History: Asthma Additional Family Medical History / Comment(s): heart problems Medications and Allergies Home Medications Medication Instructions Recorded Confirmed Type Aspirin 81 mg PO DAILY 10/30/14 06/23/18 History Losartan Potassium 100 mg PO HS 10/30/14 06/23/18 History Metoprolol Succinate [Toprol XL] 50 mg PO QAM 10/30/14 06/23/18 History amLODIPine BESYLATE [Norvasc] 10 mg PO DAILY 02/02/18 06/23/18 History Cholecalciferol [Vitamin D3] 1,000 unit PO DAILY 06/23/18 06/23/18 History Fluticasone/Salmeterol [Advair 1 puff INHALATION RT-BID 06/23/18 06/23/18 History 500-50 Diskus] Tiotropium [place] [Spiriva] 1 cap INHALATION RT-DAILY 06/23/18 06/23/18 History Allergies Allergy/AdvReac Type Severity Reaction Status Date / Time hydrocodone bitartrate AdvReac states Verified 06/23/18 15:10 [From Vicodin] "doesn't make me feel good" prednisone AdvReac Hallucinati Verified 06/23/18 15:10 ons Physical Exam Vitals: Vital Signs Temp Pulse Pulse Resp BP BP Pulse Ox 06/24/18 08:08 76 06/24/18 08:01 74 94 L 06/24/18 08:00 98.2 F 84 16 148/88 100 06/24/18 03:59 70 18 06/24/18 03:50 98.4 F 70 18 128/72 93 L 06/24/18 00:00 78 18 06/23/18 23:54 98 F 78 18 113/65 92 L 06/23/18 20:00 98.4 F 69 18 159/68 93 L 06/23/18 18:00 80 142/76 92 L 06/23/18 16:00 82 16 134/80 98 06/23/18 15:30 73 16 132/78 95 06/23/18 14:14 98.4 F 91 20 150/73 95 Intake and Output 06/23/18 06/24/18 06/24/18 22:59 06:59 14:59 Other: Voiding Method Toilet Toilet Toilet # Voids 2 Weight 81.647 kg Results 06/24/18 04:03 06/23/18 15:05 Cardiac Enzymes 06/23/18 06/23/18 06/23/18 Range/Units 15:05 15:05 22:09 AST 24 (14-36) U/L CK-MB (CK-2) 0.3 0.3 (0.0-2.4) ng/mL Troponin I <0.012 <0.012 (0.000-0.034) ng/mL 06/24/18 Range/Units 04:03 AST (14-36) U/L CK-MB (CK-2) 0.3 (0.0-2.4) ng/mL Troponin I <0.012 (0.000-0.034) ng/mL Coagulation 06/23/18 06/23/18 06/24/18 Range/Units 15:05 22:09 04:03 PT 9.9 (9.0-12.0) sec APTT 23.9 70.2 H 64.2 H (22.0-30.0) sec Lipids 06/24/18 Range/Units 04:03 Triglycerides 80 (<150) mg/dL Cholesterol 181 (<200) mg/dL HDL Cholesterol 58 (40-60) mg/dL CBC 06/23/18 06/24/18 Range/Units 15:05 04:03 WBC 7.7 (3.8-10.6) k/uL RBC 4.71 (3.80-5.40) m/uL Hgb 14.6 (11.4-16.0) gm/dL Hct 43.9 (34.0-46.0) % Plt Count 327 311 (150-450) k/uL Comprehensive Metabolic Panel 06/23/18 Range/Units 15:05 Sodium 142 (137-145) mmol/L Potassium 4.5 (3.5-5.1) mmol/L Chloride 107 (98-107) mmol/L Carbon Dioxide 27 (22-30) mmol/L BUN 11 (7-17) mg/dL Creatinine 0.85 (0.52-1.04) mg/dL Glucose 108 H (74-99) mg/dL Calcium 10.0 (8.4-10.2) mg/dL AST 24 (14-36) U/L ALT 20 (9-52) U/L Alkaline Phosphatase 83 (38-126) U/L Total Protein 7.1 (6.3-8.2) g/dL Albumin 4.1 (3.5-5.0) g/dL Current Medications Generic Name Dose Route Start Last Admin Trade Name Freq PRN Reason Stop Dose Admin Amlodipine Besylate 10 mg 06/24/18 09:00 Norvasc PO DAILY [facility] Aspirin 81 mg 06/25/18 09:00 Aspirin PO DAILY [facility] Budesonide/Formoterol Fumarate 2 puff 06/23/18 20:00 06/24/18 07:58 Symbicort 160-4.5 Mcg Inhaler INHALATION 2 puff RT-BID KENDAL Administration Cholecalciferol 1,000 unit 06/24/18 09:00 Vitamin D3 PO DAILY KENDAL Ipratropium [place] 0.5 mg 06/24/18 08:00 06/24/18 07:57 Atrovent Nebulized INHALATION 0.5 mg RT-QID KENDAL Administration Losartan Potassium 100 mg 06/23/18 21:00 06/23/18 20:53 Cozaar PO 100 mg HS KENDAL Administration Metoprolol Succinate 50 mg 06/24/18 09:00 Toprol Xl PO QAM KENDAL Nitroglycerin 0.4 mg 06/23/18 15:54 Nitrostat SUBLINGUAL Q5M PRN Chest Pain Intake and Output 06/23/18 06/24/18 06/24/18 22:59 06:59 14:59 Other: Voiding Method Toilet Toilet Toilet # Voids 2 Weight 81.647 kg 06/24/18 04:03 06/23/18 15:05
[2018-06-24 12:42] VITALS: BP 134/81
--- NOTE | 2018-06-24 13:29 | DS ---
DISCHARGE SUMMARY Mrs. Mills is an 82-year-old female who presented to the emergency room with recurrent chest pain. She had risk factors with a history of hypertension and a previous smoking history along with a positive family history. Initial studies did not show evidence of acute changes and patient was placed in observation, underwent further testing which included serial enzymes which did not show evidence of an acute myocardial infarction. She also had an echocardiogram, which showed good ejection fraction of 55% to 60% and no major morphological abnormalities noted. Chest x- ray also was unremarkable. Other labs were generally stable. The patient was seen by Cardiology and at this point, she has been released for discharge by Cardiology to be seen in office for followup by Cardiology and also Dr. Ashley, her primary care physician. Medications will include her aspirin 81 mg, her vitamin D3 a 1000 units daily. Her Advair 500/50 one puff twice a day for her COPD, losartan 100 mg at bedtime for her hypertension along with metoprolol succinate 50 mg daily. She is also on Spiriva one capsule 18 mcg daily and amlodipine 10 mg daily. FINAL DISCHARGE DIAGNOSES BEIN. Recurrent chest pain with testing not revealing any definite evidence of underlying atherosclerotic heart disease or ischemia at this time with normal troponins in this 82-year-old female who has risk factors that include hypertension, hyperlipidemia, and family history of coronary artery disease. 2. The patient also has underlying chronic obstructive pulmonary disease. 3. Previous smoking history. 4. She has also previous surgeries that include a cholecystectomy and hysterectomy along with arthroscopy and history of colon polyps with a colonoscopy and previous removal of a polyp. MMODL / IJN: [id number] / MTDD
[2018-06-25] MEDS ORDERED: ASPIRIN 81 MG PO SCH (09:00)
== END 2018-06-24 12:48 | disposition home or self-care (01) ==
LOC: EC 14:10 → 1SOBS 16:06
PROVIDERS: ADMIT Internal Medicine; ATTEND Internal Medicine
DX: R07.2 Precordial pain (principal); I10 Essential (primary) hypertension; J44.9 Chronic obstructive pulmonary disease, unspecified; E78.5 Hyperlipidemia, unspecified; K76.9 Liver disease, unspecified; J44.1 Chronic obstructive pulmonary disease with (acute) exacerbation; I25.2 Old myocardial infarction; M19.90 Unspecified osteoarthritis, unspecified site; Z90.49 Acquired absence of other specified parts of digestive tract; Z90.710 Acquired absence of both cervix and uterus; Z86.010 Personal history of colon polyps; Z87.891 Personal history of nicotine dependence; Z87.11 Personal history of peptic ulcer disease; Z79.82 Long term (current) use of aspirin; Z79.899 Other long term (current) drug therapy; Z88.8 Allergy status to other drugs, medicaments and biological substances; Z88.5 Allergy status to narcotic agent; Z82.49 Family history of ischemic heart disease and other diseases of the circulatory system; Z80.1 Family history of malignant neoplasm of trachea, bronchus and lung; Z80.42 Family history of malignant neoplasm of prostate; Z80.0 Family history of malignant neoplasm of digestive organs
CPT/HCPCS: 96376; 96365; 96366; 99285; 36415; 94640 ×3; 94760; 93005; 93306; 83880; 80061; 80053; 82550 ×2; 82553 ×2; 83735; 84484 ×2; 85025; 85049; 85610; 85730 ×2; 71046; G0378 ×2; J1644 ×2

== ENCOUNTER 2018-08-07 23:12 | Inpatient (IN) | payer MEDICARE, BC ==
[2018-08-07] MEDS ORDERED: methylPREDNISolone SOD SUCCI 125 MG/2 ML VIAL IV STA (23:50)
[2018-08-07] MEDS ORDERED: IPRATROPIUM 0.5 MG/2.5 ML NEBU INHALATION STA (23:50)
[2018-08-07] MEDS ORDERED: ALBUTEROL NEBULIZED 2.5 MG/3 ML INHALATION STA (23:50)
[2018-08-08 00:03] LABS: Basophils # (A) 0.1 k/uL (0-0.2); Basophils % (A) 1 %; Eosinophils # (A) 0.5 k/uL (0-0.7); Eosinophils % (A) 3 %; HCT 41.8 % (34.0-46.0); HGB 13.7 gm/dL (11.4-16.0); Lymphocytes # (A) 2.4 k/uL (1.0-4.8); Lymphocytes % (A) 16 %; MCH 30.8 pg (25.0-35.0); MCHC 32.9 g/dL (31.0-37.0); MCV 93.7 fL (80.0-100.0); Mean Platelet Volume 6.6; Monocytes # (A) 0.7 k/uL (0-1.0); Monocytes % (A) 4 %; Neutrophils # (A) 11.4 k/uL (1.3-7.7); Neutrophils % (A) 75 %; Platelet Count 441 k/uL (150-450); RBC 4.46 m/uL (3.80-5.40); RDW 12.9 % (11.5-15.5); WBC 15.2 k/uL (3.8-10.6)
[2018-08-08 00:13] LABS: Albumin 3.7 g/dL (3.5-5.0); Calcium 9.4 mg/dL (8.4-10.2); Potassium 3.8 mmol/L (3.5-5.1); Total Bilirubin 0.5 mg/dL (0.2-1.3); Total Protein 6.7 g/dL (6.3-8.2)
[2018-08-08 00:18] LABS: INR 0.9 (<1.2)
[2018-08-08 00:19] LABS: Partial Thromboplastin Time 23.1 sec (22.0-30.0)
[2018-08-08 00:29] LABS: D-Dimer 0.69 mg/L FEU (<0.60)
--- NOTE | 2018-08-08 00:57 | XR ---
EXAM: XR Chest, 2 Views CLINICAL HISTORY: : difficulty breathing TECHNIQUE: Frontal and lateral views of the chest. COMPARISON: 06/23/18 FINDINGS: Lungs: Chronic interstitial changes. No consolidation. Pleural space: Unremarkable. No pneumothorax. Heart: Unremarkable. No cardiomegaly. Mediastinum: Unremarkable. Bones/joints: Unremarkable. IMPRESSION: No significant change compared to prior study
[2018-08-08] MEDS ORDERED: SODIUM CHLORIDE 0.9% 1,000 ML IV ONE (02:11)
--- NOTE | 2018-08-08 02:45 | CT ---
EXAM: CT Angiography Chest With Intravenous Contrast CLINICAL HISTORY: Reason: Pain TECHNIQUE: Axial computed tomographic angiography images of the chest with intravenous contrast using pulmonary embolism protocol. CTDI is 10.9 mGy and DLP is 231.5 mGy-cm. This CT exam was performed using one or more of the following dose reduction techniques: automated exposure control, adjustment of the mA and/or kV according to patient size, and/or use of iterative reconstruction technique. MIP reconstructed images were created and reviewed. Coronal and sagittal reformatted images were created and reviewed. COMPARISON: 08/18/17 FINDINGS: Pulmonary arteries: Unremarkable. No pulmonary embolism. Aorta: No acute findings. No thoracic aortic aneurysm. Lungs: Emphysematous changes the lungs with extensive parenchymal bulla in the upper lobes. Interval development of atelectasis in the left lung base Pleural space: Unremarkable. No significant effusion. No pneumothorax. Heart: Unremarkable. No cardiomegaly. No significant pericardial effusion. No evidence of RV dysfunction. Bones/joints: No acute fracture. No dislocation. Soft tissues: Unremarkable. Lymph nodes: Unremarkable. No enlarged lymph nodes. IMPRESSION: No pulmonary embolism. No evidence for aortic dissection.. Emphysematous changes the lungs
[2018-08-08] MEDS ORDERED: IPRATROPIUM-ALBUTEROL 3 ML NEB INHALATION PRN (03:00)
--- NOTE | 2018-08-08 03:00 | ED ---
General Adult HPI - General Chief complaint: Upper Respiratory Infection Stated complaint: Cough Time Seen by Provider: 08/07/18 23:39 Source: patient Mode of arrival: ambulatory Limitations: no limitations - History of Present Illness Initial comments: 82-year-old female patient presents to the emergency department today for complaints of cough and shortness of breath. Patient states she started becoming ill on Wednesday. States she did proceed to urgent care for evaluation was started on antibiotics. States that her symptoms have been worsening since. States she is short of breath. States she becomes dizzy whenever she does any physical activity. States she is coughing up green sputum production. She denies any hemoptysis. States she does have pain across her chest with coughing. States she has been doing breathing treatments at home but did not seem to be helping her. She states she has had intermittent fevers, she is unsure how high her temperature has been. Patient denies any recent rash, abdominal pain, nausea, vomiting, diarrhea, constipation, back pain, numbness, tingling, hematuria, dysuria, urinary urgency, urinary frequency, headache, visual changes, or any other complaints. - Related Data Home Medications Medication Instructions Recorded Confirmed Aspirin 81 mg PO DAILY 10/30/14 08/07/18 Losartan Potassium 100 mg PO HS 10/30/14 08/07/18 Metoprolol Succinate [Toprol XL] 25 mg PO BID 10/30/14 08/07/18 amLODIPine BESYLATE [Norvasc] 10 mg PO DAILY 02/02/18 08/07/18 Fluticasone/Salmeterol [Advair 1 puff INHALATION RT-BID 06/23/18 08/07/18 500-50 Diskus] Tiotropium [place] [Spiriva] 1 cap INHALATION RT-DAILY 06/23/18 08/07/18 Benzonatate [Tessalon Perles] 200 mg PO TID BETWEEN MEALS PRN 08/07/18 08/07/18 Doxycycline Hyclate 100 mg PO BID 08/07/18 08/07/18 Ubidecarenone [Co Q-10] 100 mg PO DAILY 08/07/18 08/07/18 Allergies Allergy/AdvReac Type Severity Reaction Status Date / Time hydrocodone bitartrate AdvReac states Verified 08/07/18 23:56 [From Vicodin] "doesn't make me feel good" prednisone AdvReac Hallucinati Verified 08/07/18 23:56 ons Review of Systems ROS Statement: Those systems with pertinent positive or pertinent negative responses have been documented in the HPI. ROS Other: All systems not noted in ROS Statement are negative. Past Medical History Past Medical History: Asthma, COPD, Hypertension, Liver Disease, Myocardial Infarction ([place]) Additional Past Medical History / Comment(s): Hx stomach ulcer,cysts on liver > 20 years ,urinary leakage, small hiatal hernia, diverticulosis, arthritis, tinnitus leanna ears, Last Myocardial Infarction Date:: 40 years ago History of Any Multi-Drug Resistant Organisms: None Reported Past Surgical History: Cholecystectomy, Hysterectomy, Orthopedic Surgery Additional Past Surgical History / Comment(s): KNEE arthroscopy-UNSURE WHICH SIDE. COLONOSCOPY-LARGE POLYP REMOVED, egd, Past Anesthesia/Blood Transfusion Reactions: No Reported Reaction Additional Past Anesthesia/Blood Transfusion Reaction / Comment(s): no hx blood transfusion Past Psychological History: No Psychological Hx Reported Smoking Status: Former smoker Past Alcohol Use History: Occasional Past Drug Use History: None Reported - Past Family History Sister(s) Family Medical History: Cancer Additional Family Medical History / Comment(s): #1 sister colon,# 2 sister lung Father Family Medical History: Cancer Additional Family Medical History / Comment(s): prostate Mother Family Medical History: Asthma Additional Family Medical History / Comment(s): heart problems General Exam Limitations: no limitations General appearance: alert, in no apparent distress, other (Physical well- developed, well-nourished elderly female patient in mild respiratory distress. Vital signs upon presentation are temperature 98.9F, pulse 110, respirations 19 , blood pressure 153/79, pulse ox 90% on room air.) Eye exam: Present: normal appearance, PERRL, EOMI. Absent: scleral icterus, conjunctival injection, periorbital swelling ENT exam: Present: normal exam, normal oropharynx, mucous membranes moist Respiratory exam: Present: respiratory distress (Mild), wheezes (Expiratory wheezing noted throughout the posterior lung dutta), accessory muscle use ( Abdominal accessory muscle use). Absent: normal lung sounds bilaterally, rales , rhonchi, stridor Cardiovascular Exam: Present: normal rhythm, tachycardia, normal heart sounds. Absent: regular rate, systolic murmur, diastolic murmur, rubs, gallop, clicks GI/Abdominal exam: Present: soft, normal bowel sounds. Absent: distended, tenderness, guarding, rebound, rigid Neurological exam: Present: alert, oriented X3, CN II-XII intact Psychiatric exam: Present: normal affect, normal mood Skin exam: Present: warm, dry, intact, normal color. Absent: rash Course Vital Signs 08/07/18 08/08/18 08/08/18 23:21 00:35 00:43 Temperature 98.9 F Pulse Rate 110 H 94 87 Respiratory 19 Rate Blood Pressure 153/79 O2 Sat by Pulse 90 L Oximetry 08/08/18 08/08/18 00:55 01:05 Temperature Pulse Rate 89 101 H Respiratory Rate Blood Pressure O2 Sat by Pulse Oximetry EKG Findings - EKG Comments: EKG Findings:: EKG obtained at 2339 shows sinus tachycardia with ventricular rate of 102, [place] interval 140, QRS duration 78, QT 348, QTC 453. No evidence of ST elevation or depression. Medical Decision Making - Medical Decision Making 82-year-old female patient presents to the emergency department today for evaluation of cough, chest pain, shortness of breath. Physical examination did reveal expiratory wheezing in the posterior lung dutta. Patient is in mild respiratory distress with tachypnea and abdominal accessory muscle use. Vital signs did reveal tachycardia and hypoxia upon presentation with an oxygen saturation 90% on room air. Labs reviewed and did reveal elevated white blood cell count of 15.2 left shift with neutrophils 11.4, d-dimer 0.69. She was negative for influenza. Given elevated d-dimer vital signs he did CT angiography of the chest to rule out pulmonary embolism, this was performed and showed no evidence of pulmonary embolism or other abnormalities. Patient did receive breathing treatment IV steroids here in the emergency department, she does report improvement of symptoms however she still desaturates to around 82% when moving around even with oxygen in place. Patient does have history of COPD , patient's symptoms are consistent with COPD exacerbation. We'll admit for continued breathing treatments and IV steroids. Patient will be admitted to Dr. Cantu. - Lab Data Result diagrams: 08/07/18 23:50 08/07/18 23:50 Lab Results 08/07/18 08/07/18 08/07/18 Range/Units 23:50 23:50 23:50 WBC 15.2 H (3.8-10.6) k/uL RBC 4.46 (3.80-5.40) m/uL Hgb 13.7 (11.4-16.0) gm/dL Hct 41.8 (34.0-46.0) % MCV 93.7 (80.0-100.0) fL MCH 30.8 (25.0-35.0) pg MCHC 32.9 (31.0-37.0) g/dL RDW 12.9 (11.5-15.5) % Plt Count 441 (150-450) k/uL Neutrophils % 75 % Lymphocytes % 16 % Monocytes % 4 % Eosinophils % 3 % Basophils % 1 % Neutrophils # 11.4 H (1.3-7.7) k/uL Lymphocytes # 2.4 (1.0-4.8) k/uL Monocytes # 0.7 (0-1.0) k/uL Eosinophils # 0.5 (0-0.7) k/uL Basophils # 0.1 (0-0.2) k/uL PT 10.0 (9.0-12.0) sec INR 0.9 (<1.2) APTT 23.1 (22.0-30.0) sec D-Dimer 0.69 H (<0.60) mg/L FEU Sodium 139 (137-145) mmol/L Potassium 3.8 (3.5-5.1) mmol/L Chloride 108 H (98-107) mmol/L Carbon Dioxide 25 (22-30) mmol/L Anion Gap 6 mmol/L BUN 15 (7-17) mg/dL Creatinine 0.81 (0.52-1.04) mg/dL Est GFR (CKD-EPI)AfAm 80 (>60 ml/min/1.73 sqM) Est GFR (CKD-EPI)NonAf 69 (>60 ml/min/1.73 sqM) Glucose 97 (74-99) mg/dL Plasma Lactic Acid Jace (0.7-2.0) mmol/L Calcium 9.4 (8.4-10.2) mg/dL Magnesium 2.0 (1.6-2.3) mg/dL Total Bilirubin 0.5 (0.2-1.3) mg/dL AST 28 (14-36) U/L ALT 35 (9-52) U/L Alkaline Phosphatase 87 (38-126) U/L Troponin I (0.000-0.034) ng/mL NT-Pro-B Natriuret Pep pg/mL Total Protein 6.7 (6.3-8.2) g/dL Albumin 3.7 (3.5-5.0) g/dL Influenza Type A RNA (Not Detectd) Influenza Type B (PCR) (Not Detectd) 08/07/18 08/07/18 08/07/18 Range/Units 23:50 23:50 23:55 WBC (3.8-10.6) k/uL RBC (3.80-5.40) m/uL Hgb (11.4-16.0) gm/dL Hct (34.0-46.0) % MCV (80.0-100.0) fL MCH (25.0-35.0) pg MCHC (31.0-37.0) g/dL RDW (11.5-15.5) % Plt Count (150-450) k/uL Neutrophils % % Lymphocytes % % Monocytes % % Eosinophils % % Basophils % % Neutrophils # (1.3-7.7) k/uL Lymphocytes # (1.0-4.8) k/uL Monocytes # (0-1.0) k/uL Eosinophils # (0-0.7) k/uL Basophils # (0-0.2) k/uL PT (9.0-12.0) sec INR (<1.2) APTT (22.0-30.0) sec D-Dimer (<0.60) mg/L FEU Sodium (137-145) mmol/L Potassium (3.5-5.1) mmol/L Chloride (98-107) mmol/L Carbon Dioxide (22-30) mmol/L Anion Gap mmol/L BUN (7-17) mg/dL Creatinine (0.52-1.04) mg/dL Est GFR (CKD-EPI)AfAm (>60 ml/min/1.73 sqM) Est GFR (CKD-EPI)NonAf (>60 ml/min/1.73 sqM) Glucose (74-99) mg/dL Plasma Lactic Acid Jace (0.7-2.0) mmol/L Calcium (8.4-10.2) mg/dL Magnesium (1.6-2.3) mg/dL Total Bilirubin (0.2-1.3) mg/dL AST (14-36) U/L ALT (9-52) U/L Alkaline Phosphatase (38-126) U/L Troponin I <0.012 (0.000-0.034) ng/mL NT-Pro-B Natriuret Pep 149 pg/mL Total Protein (6.3-8.2) g/dL Albumin (3.5-5.0) g/dL Influenza Type A RNA Not Detected (Not Detectd) Influenza Type B (PCR) Not Detected (Not Detectd) 08/07/18 Range/Units 23:55 WBC (3.8-10.6) k/uL RBC (3.80-5.40) m/uL Hgb (11.4-16.0) gm/dL Hct (34.0-46.0) % MCV (80.0-100.0) fL MCH (25.0-35.0) pg MCHC (31.0-37.0) g/dL RDW (11.5-15.5) % Plt Count (150-450) k/uL Neutrophils % % Lymphocytes % % Monocytes % % Eosinophils % % Basophils % % Neutrophils # (1.3-7.7) k/uL Lymphocytes # (1.0-4.8) k/uL Monocytes # (0-1.0) k/uL Eosinophils # (0-0.7) k/uL Basophils # (0-0.2) k/uL PT (9.0-12.0) sec INR (<1.2) APTT (22.0-30.0) sec D-Dimer (<0.60) mg/L FEU Sodium (137-145) mmol/L Potassium (3.5-5.1) mmol/L Chloride (98-107) mmol/L Carbon Dioxide (22-30) mmol/L Anion Gap mmol/L BUN (7-17) mg/dL Creatinine (0.52-1.04) mg/dL Est GFR (CKD-EPI)AfAm (>60 ml/min/1.73 sqM) Est GFR (CKD-EPI)NonAf (>60 ml/min/1.73 sqM) Glucose (74-99) mg/dL Plasma Lactic Acid Jace 1.1 (0.7-2.0) mmol/L Calcium (8.4-10.2) mg/dL Magnesium (1.6-2.3) mg/dL Total Bilirubin (0.2-1.3) mg/dL AST (14-36) U/L ALT (9-52) U/L Alkaline Phosphatase (38-126) U/L Troponin I (0.000-0.034) ng/mL NT-Pro-B Natriuret Pep pg/mL Total Protein (6.3-8.2) g/dL Albumin (3.5-5.0) g/dL Influenza Type A RNA (Not Detectd) Influenza Type B (PCR) (Not Detectd) - Radiology Data Radiology results: report reviewed, image reviewed CT angiography of the chest with IV contrast was obtained. Report was reviewed in its entirety. Impression by Dr. Chase shows no pulmonary embolus. No evidence for aortic dissection. Emphysematous changes. Two-view x-ray of the chest is obtained. Report was reviewed in its entirety. Impression by Dr. Chase shows no significant change compared to prior study. Disposition Clinical Impression: COPD exacerbation Disposition: ADMITTED IP TO THIS HOSP Condition: Serious Referrals: Sanju Ashley MD [Primary Care Provider] - 1-2 days Decision to Admit Reason: Admit from EC Decision Date: 08/08/18 Decision Time: 03:00
[2018-08-08] MEDS: methylPREDNISolone SOD SUCCI 125 MG/2 ML VIAL IV SCH ×4 (06:02→23:52)
[2018-08-08] MEDS ORDERED: BENZONATATE 100 MG CAP PO PRN (06:30)
[2018-08-08] MEDS ORDERED: SYMBICORT 160-4.5 MCG INHALER INHALATION SCH (08:00)
[2018-08-08] MEDS: IPRATROPIUM-ALBUTEROL 3 ML NEB INHALATION SCH ×4 (08:34→19:00)
[2018-08-08] MEDS ORDERED: DOXYCYCLINE 100 MG CAP PO SCH (09:00)
[2018-08-08] MEDS ORDERED: NON-FORMULARY DRUG (Ubidecarenone [Co Q-10] 100 MG) PO SCH (09:00)
[2018-08-08] MEDS: amLODIPine 10 MG TAB PO SCH (09:20)
[2018-08-08] MEDS: METOPROLOL SUCCINATE (ER) 50 MG TAB.ER.24H PO SCH ×2 (09:20→20:56)
[2018-08-08] MEDS: guaiFENesin 600 MG TABLET.ER PO SCH ×2 (09:21→20:57)
[2018-08-08] MEDS: ASPIRIN 81 MG PO SCH (09:21)
[2018-08-08] MEDS: AZITHROMYCIN 500 MG TAB PO SCH (13:16)
--- NOTE | 2018-08-08 16:54 | P.CNPUL ---
History of Present Illness Reason for consult: dyspnea, COPD History of present illness: 82-year-old female patient was hospitalized yesterday because of worsening shortness of breath. The patient came in with increased dyspnea cough chest tightness and wheezing and a COPD with an acute exacerbation. I will on this patient for many years. The patient is known to have COPD and she's been maintained on a combination of Advair and Spiriva on outpatient basis. Previous CAT scan of the chest that shown emphysema with upper lobe predominance. The patient has had episodic exacerbations most of which have been treated on outpatient basis. Her last hospitalization was in general 2019. At that time the patient was brought in to observation unit for increased shortness of breath. The cardiac enzymes were negative. Chest x-ray showed COPD. No other findings and the blood work was essentially negative. The patient was discharged home. Her last pulmonary function test was done in 01/04/2018. She has an FEV1 of 1.36 L which is 72% of predicted. Total lung capacity is at 93% of predicted. Diffusion capacity at 47% of predicted. No history of any significant bronchial asthma. She is known to have a omental ALLERGIES and chronic acid reflux. Review of Systems Constitutional Constitutional: no excess weight gain, no excess weight loss, no loss of appetite, no fever, normal activity, no fatigue Eyes Eyes: no eye pain, no blurry vision, no eye redness, no eye itchiness, no eye swelling, no eye discharge ENMT ENMT: no ear discharge, no hearing loss, no swelling, no congestion, no hoarseness, no mouth lesions, sore throat (hoarseness and sore throat) Cardiovascular Cardiovascular: no chest pain, no rapid heart rate, no cyanosis, no pallor Respiratory Respiratory: Clear dyspnea, chest tightness, wheezing and shortness of breath and difficulty breathing Gastrointestinal GI: no difficulty swallowing, no abdominal pain, no nausea, no vomiting, no diarrhea, no constipation, no blood in stools Genitourinary General: no blood in urine, no pain during urination, no increased frequency of urination, no voiding urgency Musculoskeletal Musculoskeletal: no soft tissue swelling, no limited motion, no myalgia, joint swelling (Right knee) Skin Skin: no pain, no itchiness, no skin redness, no rash, no hives, no skin lesions , no swelling, no bruising Neurological symptoms Neuro: no numbness, no weakness, no tingling, no burning, no shooting pain, no headache, no diziness, no loss of consciousness Endocrine Endocrine: no increased thirst, no temperature intolerance Psychiatric Psych: no depression, no sleep disturbances, feeling safe in relationship, no alcohol abuse Hematologic/Lymphatic Hematologic/Lymphatic no swollen glands Allergic/Immunologic Allergy/Immunologic: no sinus pressure, no itching Past Medical History Past Medical History: COPD, Hypertension, Liver Disease Additional Past Medical History / Comment(s): Hx stomach ulcer,cysts on liver > 20 years ,urinary leakage, small hiatal hernia, diverticulosis, arthritis, tinnitus leanna ears, Last Myocardial Infarction Date:: 40 years ago History of Any Multi-Drug Resistant Organisms: None Reported Past Surgical History: Cholecystectomy, Hysterectomy, Orthopedic Surgery Additional Past Surgical History / Comment(s): KNEE arthroscopy-UNSURE WHICH SIDE. COLONOSCOPY-LARGE POLYP REMOVED, egd, Past Anesthesia/Blood Transfusion Reactions: No Reported Reaction Additional Past Anesthesia/Blood Transfusion Reaction / Comment(s): no hx blood transfusion Past Psychological History: No Psychological Hx Reported Smoking Status: Former smoker Past Alcohol Use History: Occasional Additional Past Alcohol Use History / Comment(s): started smoking 1964,quit smoking 1989,smoked 1ppd Past Drug Use History: None Reported Additional Drug Use History / Comment(s): uses cbd oil occ for arthritic pain - Past Family History Sister(s) Family Medical History: Cancer Additional Family Medical History / Comment(s): #1 sister colon,# 2 sister lung Father Family Medical History: Cancer Additional Family Medical History / Comment(s): prostate Mother Family Medical History: Asthma Additional Family Medical History / Comment(s): heart problems Medications and Allergies Home Medications Medication Instructions Recorded Confirmed Type Aspirin 81 mg PO DAILY 10/30/14 08/07/18 History Losartan Potassium 100 mg PO HS 10/30/14 08/07/18 History Metoprolol Succinate [Toprol XL] 25 mg PO BID 10/30/14 08/07/18 History amLODIPine BESYLATE [Norvasc] 10 mg PO DAILY 02/02/18 08/07/18 History Fluticasone/Salmeterol [Advair 1 puff INHALATION RT-BID 06/23/18 08/07/18 History 500-50 Diskus] Tiotropium [place] [Spiriva] 1 cap INHALATION RT-DAILY 06/23/18 08/07/18 History Benzonatate [Tessalon Perles] 200 mg PO TID BETWEEN MEALS PRN 08/07/18 08/07/18 History Doxycycline Hyclate 100 mg PO BID 08/07/18 08/07/18 History Ubidecarenone [Co Q-10] 100 mg PO DAILY 08/07/18 08/07/18 History Allergies Allergy/AdvReac Type Severity Reaction Status Date / Time hydrocodone bitartrate AdvReac states Verified 08/07/18 23:56 [From Vicodin] "doesn't make me feel good" prednisone AdvReac Hallucinati Verified 08/07/18 23:56 ons Physical Exam Vitals: Vital Signs Temp Pulse Pulse Resp BP BP BP 08/08/18 15:23 98.0 F 96 16 148/81 08/08/18 13:11 99 118/69 08/08/18 09:21 20 08/08/18 09:03 98.0 F 103 H 20 175/96 08/08/18 04:30 98.3 F 102 H 20 159/84 08/08/18 03:26 101 H 24 148/54 08/08/18 02:26 98 22 138/77 08/08/18 01:05 101 H 08/08/18 00:55 89 08/08/18 00:43 87 08/08/18 00:35 94 08/07/18 23:21 98.9 F 110 H 19 153/79 Pulse Ox 08/08/18 15:23 93 L 08/08/18 13:11 08/08/18 09:21 08/08/18 09:03 98 08/08/18 04:30 96 08/08/18 03:26 86 L 08/08/18 02:26 92 L 08/08/18 01:05 08/08/18 00:55 08/08/18 00:43 08/08/18 00:35 08/07/18 23:21 90 L Intake and Output 08/08/18 08/08/18 08/08/18 06:59 14:59 22:59 Intake Total 50 Balance 50 Intake: Oral 50 Other: Voiding Method Toilet Toilet # Voids 1 5 Weight 83.007 kg General Appearance no diaphoresis, no respiratory distress, speech not interrupted by breaths, no dyspnea, no pallor, not cachectic, well nourished, appears well HEENT no pursed lip breathing, no jugular venous distention, no mucous membrane cyanosis, no perioral cyanosis, mallampati classification: class 1 Chest no barrel chest, no retractions, no sternocleidomastoid muscle contractions, no supraclavicular retractions, no intercostal retractions, no decreased air movement, no rhonchi, no hyperinflation, (normal) adventitious sounds: rales / crackles: bilaterally: midlung dutta, prolonged expiratory wheezing, decreased air movement Heart no right ventricular heave, no distant heart sounds, no s3 gallop, (normal ) jugular vein: jugular venous distention: by 0cm, (normal) jugular vein GI bowel sounds: hyperactive (borborygmi), bowel sounds: diminished or absent Extremities no cyanosis, no clubbing, no edema Neurologic no decreased mental status, no somnolence, no confusion Assisstive Devices: ambulates with no assitive devices Gait and Mobility: gait WNL, full weight bearing Skin General Appearance normal, (normal) normal except as noted Results - Laboratory Findings CBC and BMP: 08/07/18 23:50 08/07/18 23:50 PT/INR, D-dimer PT 10.0 sec (9.0-12.0) 08/07/18 23:50 INR 0.9 (<1.2) 08/07/18 23:50 D-Dimer 0.69 mg/L FEU (<0.60) H 08/07/18 23:50 Abnormal lab findings: Abnormal Labs 08/07/18 08/07/18 08/07/18 23:50 23:50 23:50 WBC 15.2 H Neutrophils # 11.4 H D-Dimer 0.69 H Chloride 108 H - Diagnostic Findings Chest x-ray: image reviewed CT scan - chest: image reviewed Assessment and Plan Plan: Assessment 1 acute COPD exacerbation with secondary shortness of breath he had CT A of the chest was done and showed no evidence of any pulmonary embolism. No evidence of any pulmonary infiltrates or pneumonia. The patient has upper lobe predominant COPD which is obviously a chronic finding. 2 chronic COPD with upper lobe predominance. Underlying asthmatic component is not completely ruled out. The patient has been maintained on examination of Adv and Yumi on outpatient basis 3 dyspnea secondary to above 4 hyperlipidemia 5 recent hospitalization for an atypical chest pain my normal echocardiogram with an ejection fraction of 55-60% Chronic ALLERGIC rhinitis Plan Continue DuoNeb nebulized treatments around the clock. Anesthetic antibiotic coverage with accommodation Rocephin and Zithromax. IV Solu Medrol 60 mg every 6 hours. Resume outpatient medications. CAT scan chest was reviewed. No acute abdominal masses identified. Findings are consistent with chronic emphysema with upper lobe predominance. Her was a screen is negative. Troponins are negative. We'll continue to follow. Anticipate improvement over the next 24-48 hours.
[2018-08-08] MEDS: BUDESONIDE 0.5 MG/2 ML NEBU INHALATION SCH (19:00)
[2018-08-08] MEDS: FORMOTEROL FUMARATE 20 MCG/2 ML NEBU INHALATION SCH (19:00)
[2018-08-08] MEDS: INSULIN ASPART (NovoLOG) 100 UNIT/ML VIAL SQ SCH (20:24)
[2018-08-08 20:28] LABS: Glucose,Whole Blood 151 mg/dL (75-99)
[2018-08-08] MEDS: LOSARTAN 50 MG TAB PO SCH (20:57)
[2018-08-08] MEDS ORDERED: LORazepam 1 MG TAB PO ONE (21:00)
--- NOTE | 2018-08-08 22:13 | HP ---
HISTORY AND PHYSICAL CHIEF COMPLAINT: Shortness of breath. HISTORY OF PRESENT ILLNESS: This is an 82-year-old female who presented to the emergency room because of shortness of breath. The patient last week Wednesday was having symptoms of cough and congestion. She went down to the walk-in clinic and was given a prescription of doxycycline. The patient feels the doxycycline made her sicker. She was feeling fair. She went over to [facility]. She comes back with increasing shortness of breath. She is seen in the emergency room in view of that. The patient is treated with updrafts and given steroids. She had no evidence of pneumonia, fever. No angina. The patient symptoms persisted despite treatment and was noted to be hypoxic at 85% saturation with activity. In view of this, she has recommended admission. The patient was seen on the floor. She is feeling better this morning. She has had some updrafts and oxygen through the night. PAST MEDICAL HISTORY: Significant for chronic obstructive lung disease and bronchial asthma. The patient does follow with a ophthalmologist retina specialist. The patient has had previous elevated liver enzymes, suspected to be possibly fatty liver. History of degenerative arthritis. History of essential hypertension. No history of any kidney disease, ulcers, TB, hepatitis. No history of any rheumatic fever, myocardial infarction, CVA. PAST SURGICAL HISTORY: Significant for cholecystectomy, hysterectomy, arthroscopy, colonoscopy. PERSONAL HISTORY: Nonsmoker. Her used to smoke in the past. Alcohol none. FAMILY MEDICAL HISTORY: Mother had bronchial asthma. Father history of prostate disease, possible malignancy. The patient has a sister who had colon cancer and another sister with lung cancer. Mother also had coronary artery disease. The patient with a brother with history of coronary artery disease. SOCIAL HISTORY: The patient is a former smoker. Quit smoking about 20 years ago. ALLERGIES: Prolonged use of steroids in the form of prednisone. Oral prednisone causes her to have some hallucinations and confusion. Poor tolerance to [place]. MEDICATIONS: Medications at present include Norvasc 10 mg daily. Co Q10 100 mg daily. Spiriva 1 cap daily. Metoprolol 25 mg b.i.d., losartan 100 mg daily. Advair 50/500 1 puff b.i.d., Doxycycline 100 mg twice a day. She has not been taking aspirin 81 mg daily. Tessalon Perles 200 t.i.d. p.r.n. SOCIAL HISTORY: The patient is , lives with his spouse. REVIEW OF SYSTEMS: Neuro: Denies any headaches, dizziness. No double vision or blurred vision. No symptoms of TIA, syncope, seizures. Psych: No anxiety or depression. Cardiac: Denies chest pain, angina, palpitations. Respiratory: Present complaint of shortness of breath, cough. No hemoptysis. GI no nausea, vomiting, abdominal pain, diarrhea, constipation, hematochezia, melena. no symptoms of dysuria, hematuria, urgency, frequency. EXTREMITIES: Denies pain, edema. Constitutional: No fever, chills. PHYSICAL EXAMINATION: 82-year-old female appears younger than her stated age. Vital signs reveals the patient afebrile, pulse of 110 at the time of emergency room evaluation, respiration 19, blood pressure 153/79, pulse ox 98 percent on room air. Early this morning patient's pulse was temperature 98.3, pulse 102, respirations 20, blood pressure 159/84, pulse ox 96% on 3 L. HEENT: Normocephalic. NECK: Supple. Pupils reactive. Nostrils clear. Oral cavity is moist. Ears reveal no drainage. Neck no JVD. No carotid bruits. No thyromegaly. CHEST EXAMINATION: Increased percussion noted bilaterally. Generalized decreased air flow, expiratory wheeze and occasional scattered rhonchi. CARDIAC: Sounds S1, S2 with no gallop. Systolic murmur 2/6 left sternal border. Rhythm is regular with occasional irregular beat. ABDOMEN: Soft. No palpable masses. Bowel sounds normal. No organomegaly. No abdominal bruits. Extremities revealed no edema. Adequate pedal pulses. Neurological awake, alert, oriented x3 with well-coordinated movements. LABORATORY ASSESSMENT: White count 15.2, hemoglobin 13.7, white count with left shift. D-dimer was 0.69. Electrolytes normal. BUN, creatinine normal. Hepatic functions normal. Troponins negative. Influenza negative. The patient had a chest x-ray which reveals no infiltrates. A CT scan of the chest revealed no evidence of pulmonary embolism. No pneumonic process. EKG reveals sinus tachycardia. ASSESSMENT: 1. Acute exacerbation chronic obstructive pulmonary disease. 2. Acute respiratory failure with hypoxia. 3. Essential hypertension with elevated blood pressure. 4. Sinus tachycardia. PLAN: The patient at present stable. Continue present medical regimen. The patient's condition discussed with the patient. Prognosis guarded. We will give the patient antibiotics empirically, steroids and oxygen updrafts. Prognosis remains guarded. Pulmonary to see the patient. MMODL / IJN: [id number] /
[2018-08-09] MEDS: methylPREDNISolone SOD SUCCI 125 MG/2 ML VIAL IV SCH ×4 (05:02→23:04)
[2018-08-09 06:58] LABS: Glucose,Whole Blood 165 mg/dL (75-99)
[2018-08-09] MEDS: INSULIN ASPART (NovoLOG) 100 UNIT/ML VIAL SQ SCH ×4 (07:44→21:16)
[2018-08-09] MEDS: IPRATROPIUM 0.5 MG/2.5 ML NEBU INHALATION SCH ×3 (07:58→14:51)
[2018-08-09] MEDS: IPRATROPIUM-ALBUTEROL 3 ML NEB INHALATION SCH ×4 (08:02→19:31)
[2018-08-09] MEDS: FORMOTEROL FUMARATE 20 MCG/2 ML NEBU INHALATION SCH ×2 (08:02→19:31)
[2018-08-09] MEDS: BUDESONIDE 0.5 MG/2 ML NEBU INHALATION SCH ×2 (08:02→19:31)
[2018-08-09] MEDS: guaiFENesin 600 MG TABLET.ER PO SCH ×2 (08:59→21:17)
[2018-08-09] MEDS: amLODIPine 10 MG TAB PO SCH (08:59)
[2018-08-09] MEDS: METOPROLOL SUCCINATE (ER) 50 MG TAB.ER.24H PO SCH ×2 (08:59→21:17)
[2018-08-09] MEDS: ASPIRIN 81 MG PO SCH (08:59)
[2018-08-09] MEDS: AZITHROMYCIN 500 MG TAB PO SCH (09:00)
--- NOTE | 2018-08-09 11:39 | P.PN ---
Subjective Progress Note Date: 08/09/18 Principal diagnosis: Acute exacerbation of COPD 82-year-old female patient was hospitalized yesterday because of worsening shortness of breath. The patient came in with increased dyspnea cough chest tightness and wheezing and a COPD with an acute exacerbation. I will on this patient for many years. The patient is known to have COPD and she's been maintained on a combination of Advair and Spiriva on outpatient basis. Previous CAT scan of the chest that shown emphysema with upper lobe predominance. The patient has had episodic exacerbations most of which have been treated on outpatient basis. Her last hospitalization was in general 2019. At that time the patient was brought in to observation unit for increased shortness of breath. The cardiac enzymes were negative. Chest x-ray showed COPD. No other findings and the blood work was essentially negative. The patient was discharged home. Her last pulmonary function test was done in 01/04/2018. She has an FEV1 of 1.36 L which is 72% of predicted. Total lung capacity is at 93% of predicted. Diffusion capacity at 47% of predicted. No history of any significant bronchial asthma. She is known to have a omental ALLERGIES and chronic acid reflux. On 08/09/2018 patient seen in follow-up on medical surgical floor. She is breathing easier, although still remains congested, and some scattered wheezes were auscultated on today's exam, her breathing overall is improving, patient has had no fever or chills. Remainder pulse ox is 98%, hemodynamically stable. No new labs today. Blood culture show no growth at the 24-hour carolann. Antibiotic coverage with Rocephin and Zithromax, patient is on nebulized bronchodilators, IV Solu-Medrol, and she has been maximized on medical treatment. Improving. Objective - Vital Signs Vital signs: Vital Signs Temp 98.4 F 08/09/18 07:00 Pulse 80 08/09/18 11:27 Resp 16 08/09/18 07:00 BP 145/75 08/09/18 07:00 Pulse Ox 92 L 08/09/18 03:49 Intake & Output 08/08/18 08/09/18 08/09/18 18:59 06:59 18:59 Intake Total 1480 296 Balance 1480 296 Intake: Oral 1480 296 Other: Voiding Method Toilet Toilet # Voids 5 1 - Exam GENERAL EXAM: Alert, pleasant, 82-year-old -[place] female comfortable in no apparent distress. HEAD: Normocephalic/atraumatic. EYES: Normal reaction of pupils, equal size. Conjunctiva pink, sclera white. NOSE: Clear with pink turbinates. THROAT: No erythema or exudates. NECK: No masses, no JVD, no thyroid enlargement, no adenopathy. CHEST: No chest wall deformity. Symmetrical expansion. LUNGS: Equal air entry some scattered rhonchi and wheezes CVS: Regular rate and rhythm, normal S1 and S2, no gallops, no murmurs, no rubs ABDOMEN: Soft, nontender. No hepatosplenomegaly, normal bowel sounds, no guarding or rigidity. EXTREMITIES: No clubbing, no edema, no cyanosis, 2+ pulses and upper and lower extremities. MUSCULOSKELETAL: Muscle strength and tone normal. SPINE: No scoliosis or deformity SKIN: No rashes CENTRAL NERVOUS SYSTEM: Alert and oriented -3. No focal deficits, tone is normal in all 4 extremities. PSYCHIATRIC: Alert and oriented -3. Appropriate affect. Intact judgment and insight. - Labs CBC & Chem 7: 08/07/18 23:50 08/07/18 23:50 Labs: Abnormal Lab Results - Last 24 Hours (Table) 08/08/18 08/09/18 Range/Units 20:22 06:57 POC Glucose (mg/dL) 151 H 165 H (75-99) mg/dL Microbiology - Last 24 Hours (Table) 08/07/18 23:50 Blood Culture - Preliminary Blood No Growth after 24 hours Assessment and Plan Plan: Assessment: 1 acute COPD exacerbation with secondary shortness of breath he had CT A of the chest was done and showed no evidence of any pulmonary embolism. No evidence of any pulmonary infiltrates or pneumonia. The patient has upper lobe predominant COPD which is obviously a chronic finding. 2 chronic COPD with upper lobe predominance. Underlying asthmatic component is not completely ruled out. The patient has been maintained on examination of Advair and Spiriva on outpatient basis 3 dyspnea secondary to above 4 hyperlipidemia 5 recent hospitalization for an atypical chest pain my normal echocardiogram with an ejection fraction of 55-60% Chronic ALLERGIC rhinitis Plan: Continue with current medical treatment, IV steroids, nebulized bronchodilators and antibiotics, patient is improving, however not back to baseline, will need further patient treatment, will continue to follow I performed a history & physical examination of the patient and discussed their management with my nurse practitioner, Lori Walker. I reviewed the nurse practitioner's note and agree with the documented findings and plan of care. Lung sounds are positive for scattered rhonchi and wheezes. The findings and the impression was discussed with the patient. I attest to the documentation by the nurse practitioner. Time with Patient: Less than 30
[2018-08-09 11:59] LABS: Glucose,Whole Blood 157 mg/dL (75-99)
[2018-08-09 17:05] LABS: Glucose,Whole Blood 164 mg/dL (75-99)
[2018-08-09 20:18] LABS: Glucose,Whole Blood 151 mg/dL (75-99)
[2018-08-09] MEDS: LOSARTAN 50 MG TAB PO SCH (21:16)
[2018-08-10] MEDS: IPRATROPIUM 0.5 MG/2.5 ML NEBU INHALATION SCH (01:03)
[2018-08-10] MEDS: methylPREDNISolone SOD SUCCI 125 MG/2 ML VIAL IV SCH (05:08)
--- NOTE | 2018-08-10 06:18 | PN ---
PROGRESS NOTE ATTENDING PHYSICIAN: Dr. Hunter Ashley. CHIEF COMPLAINT: Re-evaluation. HISTORY OF PRESENT ILLNESS: This is an 82-year-old female admitted to the hospital because of shortness of breath. The patient has evidence of acute exacerbation of COPD and bronchial asthma. The patient has underlying history of high blood pressure. She has symptoms of upper respiratory infection. She is feeling better today. REVIEW OF SYSTEMS: NEURO: Denies any headaches, dizziness. PSYCH: No anxiety. CARDIAC: No chest pain, angina, palpitation. RESPIRATORY: Shortness of breath, cough. No hemoptysis. GI: No nausea, vomiting, abdominal pain, diarrhea. : No symptoms of dysuria, hematuria. Extremities denies pain. CONSTITUTIONAL: No fever or chills. PHYSICAL EXAMINATION: Pleasant female in no distress. Vital signs reveals temperature 98.4, pulse 91, respirations 16, blood pressure 145/75, pulse ox 98% on room air. HEENT: Normocephalic. NECK: No JVD. CHEST EXAMINATION: Clear to percussion. Patient has bilateral rhonchi. No wheezing appreciated. CARDIAC: Distant heart sounds, S1, S2 with no gallops. Systolic murmur 2/6 left sternal border. ABDOMEN: Soft. Bowel sounds present. EXTREMITIES: No edema. No tenderness. NEUROLOGICALLY: Awake, alert, oriented with well-coordinated movements. LABORATORY ASSESSMENT: blood sugars in adequate range. ASSESSMENT: 1. Acute exacerbation of chronic obstructive pulmonary disease. 2. Bronchial asthma. 3. Tracheobronchitis. 4. Essential hypertension. PLAN: The patient is stable. Continue present medical regimen. The patient's condition discussed with the patient. Prognosis guarded. MMODL / IJN: [id number] /
[2018-08-10] MEDS: IPRATROPIUM-ALBUTEROL 3 ML NEB INHALATION SCH ×2 (07:00→10:49)
[2018-08-10] MEDS: BUDESONIDE 0.5 MG/2 ML NEBU INHALATION SCH (07:01)
[2018-08-10] MEDS: FORMOTEROL FUMARATE 20 MCG/2 ML NEBU INHALATION SCH (07:01)
[2018-08-10 07:25] LABS: Glucose,Whole Blood 126 mg/dL (75-99)
[2018-08-10] MEDS: guaiFENesin 600 MG TABLET.ER PO SCH (08:38)
[2018-08-10] MEDS: AZITHROMYCIN 500 MG TAB PO SCH (08:38)
[2018-08-10] MEDS: ASPIRIN 81 MG PO SCH (08:39)
[2018-08-10] MEDS: amLODIPine 10 MG TAB PO SCH (08:39)
[2018-08-10] MEDS: METOPROLOL SUCCINATE (ER) 50 MG TAB.ER.24H PO SCH (08:39)
[2018-08-10] MEDS: INSULIN ASPART (NovoLOG) 100 UNIT/ML VIAL SQ SCH ×2 (08:51→12:31)
[2018-08-10 09:49] VITALS: RESP 17
[2018-08-10 09:56] VITALS: BP 150/80; TEMP 98.8
[2018-08-10 11:01] VITALS: PULSE 84
[2018-08-10 11:33] LABS: Glucose,Whole Blood 138 mg/dL (75-99)
--- NOTE | 2018-08-10 13:18 | CDI ---
Documentation Clarification Form Date: 08/10/2018 1:05:39 PM From: Rachele BeyMaddenZUHAIR marroquin, CCDS Admit Date: 08/08/2018 3:46:00 AM Patient Name: Kelley Mills Visit Number: [id number] Discharge Date: ATTENTION: The Clinical Documentation Specialists (CDI) and [facility] Coding Staff appreciate your assistance in clarifying documentation. Please respond to the clarification below the line at the bottom and electronically sign. The CDI & [facility] Coding staff will review the response and follow-up if needed. Please note: Queries are made part of the Legal Health Record. If you have any questions, please contact the author of this message via ITS. Dr. Da Gilbert: Per the Pulmonary consult & subsequent progress note: "Chronic COPD with upper lobe predominance. Underlying asthmatic component is not completely ruled out. The patient has been maintained on examination of Advair and Spiriva on outpatient basis." History/risk factors: COPD, Asthma, Chronic allergic rhinitis, Hypertension, Hyperlipidemia, [place] & Former smoker. Clinical Indicators: Presented with SOB & cough with green sputum production, some chest tightness & intermittent fevers. Radiology: CXR: No acute changes. Ct chest: Emphysematous changes. Vital Signs: T 98.9, P 110^, R 19 (non labored), BP 153/79, PO 90 RA Treatment: Albuterol & Atrovent INH, IV Solumedrol, IV Rocephin. In your professional opinion, can you please further specify the following, if known? Asthma ruled out Asthma ruled in: With Acute Exacerbation Status asthmaticus Acute lower respiratory infection Other, please specify ___ Unable to determine Severity o Mild intermittent o Mild persistent o Moderate persistent o Severe persistent o Other, please specify ____ o Unable to determine Form or Type o Cough variant o Childhood o Exercise induced bronchospasm o Extrinsic allergic o Idiosyncratic o Intrinsic nonallergic o Late-onset o Mixed o Other, please specify____ o Unable to determine (Last Revision: September 2017) MTDD
--- NOTE | 2018-08-10 15:50 | P.PN ---
Subjective Progress Note Date: 08/10/18 Principal diagnosis: Acute exacerbation of COPD 82-year-old female patient was hospitalized yesterday because of worsening shortness of breath. The patient came in with increased dyspnea cough chest tightness and wheezing and a COPD with an acute exacerbation. I will on this patient for many years. The patient is known to have COPD and she's been maintained on a combination of Advair and Spiriva on outpatient basis. Previous CAT scan of the chest that shown emphysema with upper lobe predominance. The patient has had episodic exacerbations most of which have been treated on outpatient basis. Her last hospitalization was in general 2019. At that time the patient was brought in to observation unit for increased shortness of breath. The cardiac enzymes were negative. Chest x-ray showed COPD. No other findings and the blood work was essentially negative. The patient was discharged home. Her last pulmonary function test was done in 01/04/2018. She has an FEV1 of 1.36 L which is 72% of predicted. Total lung capacity is at 93% of predicted. Diffusion capacity at 47% of predicted. No history of any significant bronchial asthma. She is known to have a omental ALLERGIES and chronic acid reflux. On 08/09/2018 patient seen in follow-up on medical surgical floor. She is breathing easier, although still remains congested, and some scattered wheezes were auscultated on today's exam, her breathing overall is improving, patient has had no fever or chills. Remainder pulse ox is 98%, hemodynamically stable. No new labs today. Blood culture show no growth at the 24-hour carolann. Antibiotic coverage with Rocephin and Zithromax, patient is on nebulized bronchodilators, IV Solu-Medrol, and she has been maximized on medical treatment. Improving. On 2018 patient seen in follow-up on medical surgical floor. She is improving, breathing easier, less congested and wheezy. Lung sounds are essentially clear to auscultation on today's exam. Pulse ox is 92%, afebrile, hemodynamically stable. Culture was negative, patient has been treated with IV steroids, neb last bronchodilators and antibiotics, improved, and from pulmonary perspective she stable for discharge home today. Objective - Vital Signs Vital signs: Vital Signs Temp 98.8 F 08/10/18 07:00 Pulse 84 08/10/18 11:00 Resp 17 08/10/18 08:00 BP 150/80 08/10/18 07:00 Pulse Ox 92 L 08/09/18 19:31 Intake & Output 08/09/18 08/10/18 08/10/18 18:59 06:59 18:59 Intake Total 1326 810 Balance 1326 810 Intake: Oral 1326 810 Other: Voiding Method Toilet # Voids 1 - Exam GENERAL EXAM: Alert, pleasant, 82-year-old -[place] female comfortable in no apparent distress. HEAD: Normocephalic/atraumatic. EYES: Normal reaction of pupils, equal size. Conjunctiva pink, sclera white. NOSE: Clear with pink turbinates. THROAT: No erythema or exudates. NECK: No masses, no JVD, no thyroid enlargement, no adenopathy. CHEST: No chest wall deformity. Symmetrical expansion. LUNGS: Equal air entry with no rhonchi, no wheezes, no rales CVS: Regular rate and rhythm, normal S1 and S2, no gallops, no murmurs, no rubs ABDOMEN: Soft, nontender. No hepatosplenomegaly, normal bowel sounds, no guarding or rigidity. EXTREMITIES: No clubbing, no edema, no cyanosis, 2+ pulses and upper and lower extremities. MUSCULOSKELETAL: Muscle strength and tone normal. SPINE: No scoliosis or deformity SKIN: No rashes CENTRAL NERVOUS SYSTEM: Alert and oriented -3. No focal deficits, tone is normal in all 4 extremities. PSYCHIATRIC: Alert and oriented -3. Appropriate affect. Intact judgment and insight. - Labs CBC & Chem 7: 08/07/18 23:50 08/07/18 23:50 Labs: Abnormal Lab Results - Last 24 Hours (Table) 08/09/18 08/09/18 08/10/18 Range/Units 17:02 20:16 07:23 POC Glucose (mg/dL) 164 H 151 H 126 H (75-99) mg/dL 08/10/18 Range/Units 11:32 POC Glucose (mg/dL) 138 H (75-99) mg/dL Microbiology - Last 24 Hours (Table) 08/07/18 23:50 Blood Culture - Preliminary Blood No Growth after 48 hours Assessment and Plan Plan: Assessment: 1 acute COPD exacerbation with secondary shortness of breath he had CT A of the chest was done and showed no evidence of any pulmonary embolism. No evidence of any pulmonary infiltrates or pneumonia. The patient has upper lobe predominant COPD which is obviously a chronic finding. 2 chronic COPD with upper lobe predominance. Underlying asthmatic component is not completely ruled out. The patient has been maintained on examination of Alexandra and Yumi on outpatient basis 3 dyspnea secondary to above 4 hyperlipidemia 5 recent hospitalization for an atypical chest pain my normal echocardiogram with an ejection fraction of 55-60% Chronic ALLERGIC rhinitis Plan: Patient is doing well, improving, vital signs are stable, no fever or chills, from pulmonary perspective patient is stable for discharge home today on short course of oral antibiotics, prednisone taper, nebulized bronchodilators and inhalers, follow up with Dr. Gilbert in the office in one week I performed a history & physical examination of the patient and discussed their management with my nurse practitioner, Lori Walker. I reviewed the nurse practitioner's note and agree with the documented findings and plan of care. Lung sounds are positive for scattered rhonchi and wheezes. The findings and the impression was discussed with the patient. I attest to the documentation by the nurse practitioner. Time with Patient: Less than 30
--- NOTE | 2018-08-13 11:35 | P.DS ---
Providers Date of admission: 08/08/18 03:46 Attending physician: Chas Cantu Consults: 08/08/18 03:00 Consult Physician Routine Consulting Provider: Da Gilbert Consult Reason/Comments: COPD exacerbation Do you want consulting provider notified?: Yes Primary care physician: Sanju Ashley [place] [facility] Course: This 82-year-old female was admitted to the hospital because of shortness of breath. She has a known history of bronchial asthma with associated COPD. The patient has been on treatment on the outpatient and due to the failed treatment patient presents to the emergency room. She is admitted to the hospital with this exacerbation. Patient desaturated rapidly with activity in the emergency room. And in view of this she is admitted to the hospital. She had been on doxycycline which was discontinued patient's placed on Rocephin. A progress oxygen steroids. The steroids occasionally make her hallucinate. But overall she remained fairly stable mentally. Her respiratory status improved. She was discharged home. Patient was seen by pulmonary during the hospital stay. Final diagnoses to include 1. Acute exacerbation chronic asthma and COPD 2. Persistent bronchial asthma moderate. 3. Essential hypertension 4. Acute tracheobronchitis Patient Condition at Discharge: Serious Plan - Discharge Summary Discharge Rx Participant: No New Discharge Prescriptions: New guaiFENesin [Mucinex] 1,200 mg PO Q12HR tablet.er predniSONE 10 mg PO DIRECTED #32 tab Albuterol Nebulized (Conc) [Ventolin Nebulized (Conc)] 2.5 mg INHALATION ACHS #120 neb Continue Aspirin 81 mg PO DAILY Metoprolol Succinate [Toprol XL] 25 mg PO BID Losartan Potassium 100 mg PO HS amLODIPine BESYLATE [Norvasc] 10 mg PO DAILY Tiotropium [place] [Spiriva] 1 cap INHALATION RT-DAILY Fluticasone/Salmeterol [Advair 500-50 Diskus] 1 puff INHALATION RT-BID Benzonatate [Tessalon Perles] 200 mg PO TID BETWEEN MEALS PRN PRN Reason: Cough Ubidecarenone [Co Q-10] 100 mg PO DAILY Discontinued Doxycycline Hyclate 100 mg PO BID Discharge Medication List Aspirin 81 mg PO DAILY 10/30/14 [History] Losartan Potassium 100 mg PO HS 10/30/14 [History] Metoprolol Succinate [Toprol XL] 25 mg PO BID 10/30/14 [History] amLODIPine BESYLATE [Norvasc] 10 mg PO DAILY 08/22/18 [History] Fluticasone/Salmeterol [Advair 500-50 Diskus] 1 puff INHALATION RT-BID 06/23/18 [History] Tiotropium [place] [Spiriva] 1 cap INHALATION RT-DAILY 06/23/18 [History] Benzonatate [Tessalon Perles] 200 mg PO TID BETWEEN MEALS PRN 08/07/18 [History] Ubidecarenone [Co Q-10] 100 mg PO DAILY 08/07/18 [History] Albuterol Nebulized (Conc) [Ventolin Nebulized (Conc)] 2.5 mg INHALATION ACHS # 120 neb 08/10/18 [Rx] guaiFENesin [Mucinex] 1,200 mg PO Q12HR tablet.er 08/10/18 [Rx] predniSONE 10 mg PO DIRECTED #32 tab 08/10/18 [Rx] Follow up Appointment(s)/Referral(s): Sanju Ashley MD [Primary Care Provider] - 08/16/18 11:15 am Discharge Disposition: HOME SELF-CARE
== END 2018-08-10 12:59 | disposition home or self-care (01) | DRG 190 ==
LOC: EC 23:12 → 4SSUR 08-08 03:46
PROVIDERS: ADMIT Internal Medicine; ATTEND Internal Medicine
DX: J43.9 Emphysema, unspecified (principal); J96.01 Acute respiratory failure with hypoxia; J45.40 Moderate persistent asthma, uncomplicated; J20.9 Acute bronchitis, unspecified; M19.90 Unspecified osteoarthritis, unspecified site; K21.9 Gastro-esophageal reflux disease without esophagitis; E78.5 Hyperlipidemia, unspecified; K44.9 Diaphragmatic hernia without obstruction or gangrene; I10 Essential (primary) hypertension; I25.2 Old myocardial infarction; K76.9 Liver disease, unspecified; K57.90 Diverticulosis of intestine, part unspecified, without perforation or abscess without bleeding; H93.13 Tinnitus, bilateral; Z79.82 Long term (current) use of aspirin; Z79.51 Long term (current) use of inhaled steroids; Z79.899 Other long term (current) drug therapy; Z87.11 Personal history of peptic ulcer disease; Z88.5 Allergy status to narcotic agent; Z88.8 Allergy status to other drugs, medicaments and biological substances; Z90.49 Acquired absence of other specified parts of digestive tract; Z90.710 Acquired absence of both cervix and uterus; Z87.891 Personal history of nicotine dependence; Z80.0 Family history of malignant neoplasm of digestive organs; Z80.1 Family history of malignant neoplasm of trachea, bronchus and lung; Z80.42 Family history of malignant neoplasm of prostate; Z82.5 Family history of asthma and other chronic lower respiratory diseases; Z82.49 Family history of ischemic heart disease and other diseases of the circulatory system
CPT/HCPCS: 36415; 71046; 71275; 80053; 83605; 83735; 83880; 84484; 85025; 85379; 85610; 85730; 87040; 87502; 93005; 94640; 94644; 94760; 96361; 96374; 99285

== ENCOUNTER 2018-08-26 10:33 | Inpatient (IN) | payer MEDICARE, BC ==
[~2018-08-26 10:33] MED LIST changes: +ALBUTEROL NEB (CONC) 2.5 MG/0.5 ML INHALATION ONE; +LACTATED RINGERS 1,000 ML IV ONE; -LACTATED RINGERS 1,000 ML IV SCH; +LIDOCAINE 2% (PF) 20 MG/ML 5 ML VIAL INHALATION ONE; +LIDOCAINE VISCOUS 2% 15 ML CUP MUCOUS MEM ONE; -MIDAZOLAM 2 MG/2 ML VIAL IV PRN
[2018-08-26 11:22] LABS: Glucose,Whole Blood 102 mg/dL (75-99)
[2018-08-26] MEDS ORDERED: PROPOFOL 10 MG/ML 20 ML VIAL IV ONE (12:34)
[2018-08-26] MEDS ORDERED: KETAMINE 10 MG/ML 20 ML VIAL ONE (12:34)
[2018-08-26] MEDS ORDERED: LIDOCAINE 1% INJ 10MG/ML (20 ML MDV) ONE (12:34)
[2018-08-26] MEDS ORDERED: LIDOCAINE 2% INJ 20 MG/ML INTRATRACH ONE (12:53)
--- NOTE | 2018-08-26 12:53 | P.PCN ---
Date of Procedure: 08/26/18 Preoperative Diagnosis: 1Tracheobronchitis 2 COPD exacerbation Postoperative Diagnosis: Tracheobronchitis Tracheobronchomalacia COPD exacerbation BAL of the Lingula Procedure(s) Performed: flexible bronchoscopy, airway inspection, bronchioloalveolar lavage of the left upper lobe/lingula. Anesthesia: MAC Surgeon: Da Gilbert Estimated Blood Loss (ml): 0 Pathology: none sent Condition: stable Disposition: same day Indications for Procedure: Dyspnea Operative Findings: This procedure was done under sedation and the patient was medicated with a combination of combination of 20 mg of ketamine and 100 mg of propofol. After achieving adequate sedation, the flexible bronchoscope was inserted through the right nostril was advanced with the upper airway. Examination of the posterior oropharynx, larynx, epiglottis and vocal cords was done and all of the upper airway structures were within normal limits. A total of 3 days of 1% lidocaine was applied to the vocal cords and following that the flexible bronchoscope was placed into the upper trachea past the vocal cords. Immediately, there was copious amount of rest or secretions identified retained within the patient's trachea. There was evidence of tracheomalacia as the membranous trachea was very much dynamically was causing dynamic obstruction of the airway with exhalation and cough and. Therapeutic airway suctioning was done. The secretions were somewhat thick yet creamy yellowish in color and was scattered throughout the trachea back and mainstem bronchi. Therapeutic airway suctioning was done and the airway was clean from any underlying respiratory secretions. Bronchial mucosa was inspected and the underlying mucosa was quite inflamed and irritated and erythematous. The trachea was patent. Bilateral mainstem bronchi were visualized. Ana was sharp in the midline. Visualized airways into the right upper lobe bronchus, bronchus intermedius, right middle lobe bronchus, right lower lobe bronchus, left upper lobe bronchus and left lower lobe bronchus. All of his airways were patent but there were diffusely inflamed with extensive mucosal inflammatory changes. As noted, there was moderate degree of tracheal bronchomalacia throughout the airways. No en dobronchial tumors. No foreign bodies. A bronchoalveolar lavage of the lingula segment was done. A total of 60cc of saline fluid was infused and 20 mL was aspirated back. The patient encounter cough. The patient also but her lower lip during the procedure. At the end of the procedure, the bronchoscope was removed and there was no oxygen desaturation the patient maintained stable hemodynamics throughout the procedure. We'll send the fluid for culture and analysis and will make further recommendations accordingly.
[2018-08-26] MEDS ORDERED: ALBUTEROL NEBULIZED 2.5 MG/3 ML INHALATION STA (13:07)
[2018-08-26] MEDS ORDERED: guaiFENesin-DM 100-10MG/5ML 10 ML CUP PO PRN (13:47)
--- NOTE | 2018-08-26 14:01 | P.CNPUL ---
History of Present Illness Consult date: 08/26/18 Requesting physician: Sanju Ashley Reason for consult: dyspnea Chief complaint: Shortness of breath History of present illness: This is a very pleasant 82-year-old female patient who follows with Dr. Ashley as her primary care physician. She has a history of gastric ulcers, system the liver, urinary leakage, small hiatal hernia, diverticulosis, arthritis. She also has a previous smoking history of approximate 25 years at 1 pack per day. She does have significant chronic obstructive pulmonary disease. Her FEV1 value is 1.36 L which is 72% of predicted. Total lung capacity is at 93%. Diffusion capacity of 47%. She follows with Dr. Gilbert in our office for the same. She has been maintained on Advair, Spiriva, albuterol. She had recently been in the hospital and month ago for his COPD exacerbation. She did improve initially however she continued to have worsening shortness of breath cough and congestion. Dr. Gilbert had performed an elective bronchoscopy and BAL on the patient today. Following the procedure she remained quite bronchospastic and wheezy. There was thick mucus removed and her bronchial tubes were very friable and bleeding. Cultures were sent and are pending. He elected to keep the patient in the hospital. She is seen in the postoperative setting. She is awake and alert in no acute distress. She continues to have a loose productive of blood-tinged sputum. She's been initiated on cefepime and Bactrim along with Tussionex and IV Solu-Medrol. He is maintaining good O2 saturations in the mid 90s on 4 L/m per nasal cannula. She does have a temperature of 99.5 temporal. Review of Systems Constitutional: Reports fatigue, Reports fever, Reports weakness Eyes: denies blurred vision, denies decreased vision Ears: deny: decreased hearing Ears, nose, mouth and throat: Reports hoarseness, Reports sore throat Cardiovascular: Reports decreased exercise tolerance, Reports dyspnea on exertion, Reports shortness of breath Respiratory: Reports cough, Reports cough with sputum, Reports dyspnea, Reports wheezing Gastrointestinal: Denies abdominal pain, Denies diarrhea, Denies nausea, Denies vomiting Genitourinary: Denies dysuria, Denies hematuria Musculoskeletal: Denies myalgias Integumentary: Denies pruritus, Denies rash Neurological: Denies numbness, Denies weakness Psychiatric: Denies anxiety, Denies depression Endocrine: Denies fatigue, Denies weight change Hematologic/Lymphatic: Reports as per HPI Allergic/Immunologic: Reports as per HPI Past Medical History Past Medical History: COPD, Hypertension, Liver Disease Additional Past Medical History / Comment(s): Hx stomach ulcer,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 COLONOSCOPY-LARGE POLYP REMOVED, egd, Past Anesthesia/Blood Transfusion Reactions: No Reported Reaction Additional Past Anesthesia/Blood Transfusion Reaction / Comment(s): no hx blood transfusion Smoking Status: Former smoker - Past Family History Sister(s) Family Medical History: Cancer Additional Family Medical History / Comment(s): #1 sister colon,# 2 sister lung Father Family Medical History: Cancer Additional Family Medical History / Comment(s): prostate Mother Family Medical History: Asthma Additional Family Medical History / Comment(s): heart problems Medications and Allergies Home Medications Medication Instructions Recorded Confirmed Type Aspirin 81 mg PO DAILY 10/30/14 08/26/18 History Losartan Potassium 100 mg PO HS 10/30/14 08/26/18 History Metoprolol Succinate [Toprol XL] 25 mg PO BID 10/30/14 08/26/18 History amLODIPine BESYLATE [Norvasc] 10 mg PO DAILY 02/02/18 08/26/18 History Fluticasone/Salmeterol [Advair 1 puff INHALATION RT-BID 06/23/18 08/26/18 History 500-50 Diskus] Tiotropium [place] [Spiriva] 1 cap INHALATION RT-DAILY 06/23/18 08/26/18 History Benzonatate [Tessalon Perles] 200 mg PO TID BETWEEN MEALS PRN 08/07/18 08/26/18 History Ubidecarenone [Co Q-10] 100 mg PO DAILY 08/07/18 08/26/18 History Albuterol Nebulized (Conc) 2.5 mg INHALATION ACHS PRN 08/24/18 08/26/18 History [Ventolin Nebulized (Conc)] guaiFENesin [Mucinex] 1,200 mg PO Q12HR PRN 08/24/18 08/26/18 History Allergies Allergy/AdvReac Type Severity Reaction Status Date / Time hydrocodone bitartrate AdvReac states Verified 08/26/18 10:57 [From Vicodin] "doesn't make me feel good" prednisone AdvReac Hallucinati Verified 08/26/18 10:57 ons Physical Exam Vitals: Vital Signs Temp Pulse Pulse Resp BP Pulse Ox 08/26/18 13:33 116 H 08/26/18 13:22 118 H 08/26/18 13:04 122 H 20 95 08/26/18 11:13 117 H 17 95 08/26/18 11:01 99.5 F 124 H 18 146/82 93 L Intake and Output 08/25/18 08/26/18 08/26/18 22:59 06:59 14:59 Intake Total 400 Balance 400 Intake: IV 400 GENERAL EXAM: Alert, active, comfortable in no apparent distress. On 4 L nasal cannula. HEAD: Normocephalic. EYES: Normal reaction of pupils, equal size. NOSE: Clear with pink turbinates. THROAT: No erythema or exudates. NECK: No masses, no JVD. CHEST: No chest wall deformity. LUNGS: Equal air entry with bilateral end expiratory wheeze. Few scattered rhonchi CVS: S1 and S2 normal with no audible murmur, regular rhythm. ABDOMEN: No hepatosplenomegaly, normal bowel sounds, no guarding or rigidity. SPINE: No scoliosis or deformity SKIN: No rashes CENTRAL NERVOUS SYSTEM: No focal deficits, tone is normal in all 4 extremities. EXTREMITIES: There is no peripheral edema. No clubbing, no cyanosis. Peripheral pulses are intact. Results - Laboratory Findings Abnormal lab findings: Abnormal Labs 08/26/18 11:11 POC Glucose (mg/dL) 102 H Assessment and Plan Assessment: Impression: #1 Acute exacerbation of chronic obstructive pulmonary disease complicated by purulent tracheobronchitis. Status post bronchoscopy with BAL today. Cultures are pending. The patient required admission to her bronchospasms and wheezing. #2 Chronic obstructive pulmonary disease disease with upper lobe predominance. Underlying asthmatic component is not completely ruled out. She's been maintained on Advair and Spiriva in the outpatient setting. #3 Hyperlipidemia. #4 History of atypical chest pain. #5 Chronic ALLERGIC rhinitis. #6 Arthritis. Plan: The patient was seen and evaluated by Dr. Gilbert. She will be admitted for further treatment for her COPD exacerbation and bronchospasms. We've initiated Bactrim and cefepime. Tussionex for her cough. IV Solu-Medrol. Obtain a chest x-ray. We'll continue to follow and make further recommendations based on her clinical status. I, the cosigning physician, performed a history & physical examination of the patient. Lungs sounds with bilateral end expiratory wheeze, diminished.. Maintaining good O2 saturations in the 90s on 4 L/m per nasal cannula. I discussed the assessment and plan of care with my nurse practitioner, Teresa Alejandro. I attest to the above note as dictated by her. Time with Patient: Greater than 30
[2018-08-26] MEDS: SODIUM CHLORIDE 0.9% 1,000 ML IV SCH (14:06)
[2018-08-26] MEDS: LACTATED RINGERS 1,000 ML IV SCH (14:06)
--- NOTE | 2018-08-26 14:50 | XR ---
EXAMINATION TYPE: XR chest 1V portable DATE OF EXAM: 08/26/2018 COMPARISON: NONE HISTORY: Shortness of breath. History of asthma and COPD TECHNIQUE: Single frontal view of the chest is obtained. FINDINGS: There is platelike linear left basilar chronic atelectasis seen on the prior of 08/08/2018. Remainder the lungs demonstrate only chronic parenchymal change. Cardiomediastinal silhouette is upp er limits of normal. There is a dextroscoliotic curvature of the thoracolumbar junction. Generalized osseous demineralization is seen. IMPRESSION: Chronic platelike left basilar subsegmental atelectasis. No acute cardiopulmonary proces s.
[2018-08-26 15:00] VITALS: BMI 27.8
[2018-08-26] MEDS: CEFEPIME 2 GM in SODIUM CHLORIDE 0.9% 100 ML IVPB SCH ×2 (15:18→23:18)
[2018-08-26] MEDS: methylPREDNISolone SOD SUCCI 40 MG/ML 1 ML VIAL IV SCH ×2 (15:20→23:03)
[2018-08-26 15:26] LABS: ALT 37 U/L (9-52); AST 26 U/L (14-36); Albumin 3.6 g/dL (3.5-5.0); Alkaline Phosphatase 64 U/L (38-126); Anion Gap 8 mmol/L; Blood Urea Nitrogen 14 mg/dL (7-17); Carbon Dioxide 25 mmol/L (22-30); Chloride 108 mmol/L (98-107); Glucose 97 mg/dL (74-99); Potassium 4.4 mmol/L (3.5-5.1); Sodium 141 mmol/L (137-145); Total Bilirubin 0.9 mg/dL (0.2-1.3); Total Protein 6.1 g/dL (6.3-8.2)
[2018-08-26 15:48] LABS: Basophils % (A) 0 %; Eosinophils # (A) 0.1 k/uL (0-0.7); Eosinophils % (A) 1 %; HCT 46.3 % (34.0-46.0); HGB 14.1 gm/dL (11.4-16.0); Lymphocytes # (A) 1.4 k/uL (1.0-4.8); Lymphocytes % (A) 15 %; MCH 29.9 pg (25.0-35.0); MCHC 30.5 g/dL (31.0-37.0); Mean Platelet Volume 7.8; Monocytes # (A) 0.4 k/uL (0-1.0); Monocytes % (A) 4 %; Neutrophils # (A) 7.2 k/uL (1.3-7.7); Neutrophils % (A) 78 %; Platelet Count 281 k/uL (150-450); RBC 4.73 m/uL (3.80-5.40); RDW 13.1 % (11.5-15.5); WBC 9.3 k/uL (3.8-10.6)
[2018-08-26] MEDS: SULFAMETHOX-TMP 800-160MG 1 EACH TAB PO SCH (21:48)
[2018-08-27] MEDS: SODIUM CHLORIDE 0.9% 1,000 ML IV SCH (05:24)
[2018-08-27] MEDS: LACTATED RINGERS 1,000 ML IV SCH (05:25)
[2018-08-27] MEDS: methylPREDNISolone SOD SUCCI 40 MG/ML 1 ML VIAL IV SCH (07:20)
[2018-08-27] MEDS: CEFEPIME 2 GM in SODIUM CHLORIDE 0.9% 100 ML IVPB SCH ×3 (08:15→23:49)
[2018-08-27] MEDS: SULFAMETHOX-TMP 800-160MG 1 EACH TAB PO SCH ×2 (08:15→21:52)
--- NOTE | 2018-08-27 14:30 | P.PN ---
Subjective Progress Note Date: 08/27/18 Principal diagnosis: Acute exacerbation of COPD, complicated by purulent tracheobronchitis status post bronchoscopy This is a very pleasant 82-year-old female patient who follows with Dr. Ashley as her primary care physician. She has a history of gastric ulcers, system the liver, urinary leakage, small hiatal hernia, diverticulosis, arthritis. She also has a previous smoking history of approximate 25 years at 1 pack per day. She does have significant chronic obstructive pulmonary disease. Her FEV1 value is 1.36 L which is 72% of predicted. Total lung capacity is at 93%. Diffusion capacity of 47%. She follows with Dr. Gilbert in our office for the same. She has been maintained on Advair, Spiriva, albuterol. She had recently been in the hospital and month ago for his COPD exacerbation. She did improve initially however she continued to have worsening shortness of breath cough and congestion. Dr. Gilbert had performed an elective bronchoscopy and BAL on the patient today. Following the procedure she remained quite bronchospastic and wheezy. There was thick mucus removed and her bronchial tubes were very friable and bleeding. Cultures were sent and are pending. He elected to keep the patient in the hospital. She is seen in the postoperative setting. She is awake and alert in no acute distress. She continues to have a loose productive of blood-tinged sputum. She's been initiated on cefepime and Bactrim along with Tussionex and IV Solu-Medrol. He is maintaining good O2 saturations in the mid 90s on 4 L/m per nasal cannula. She does have a temperature of 99.5 temporal. The patient is seen today 08/27/2017 in follow-up on the regular medical floor. She is awake and alert in no acute distress. She is doing quite a bit better today as compared to yesterday. Her cough has settled down significantly. She is maintaining good O2 saturations in the 90s on room air. She's been afebrile. Hemodynamically stable. Bronchial wash is growing Pseudomonas species. She is currently on Bactrim and cefepime. White count 9.3. Hemoglobin 14.1. Creatinine 0.70. Objective - Vital Signs Vital signs: Vital Signs Temp 98.5 F 08/27/18 07:00 Pulse 106 H 08/27/18 07:00 Resp 15 08/27/18 07:00 BP 132/78 08/27/18 07:00 Pulse Ox 93 L 08/27/18 07:00 Intake & Output 08/26/18 08/27/18 08/27/18 18:59 06:59 18:59 Intake Total 400 640 620 Balance 400 640 620 Intake: IV 400 260 Cefepime 2 gm In Sodium 100 Chloride 0.9% 100 ml @ 200 mls/hr IVPB Q8HR [facility] Rx#:[id number] Sodium Chloride 0.9% 1, 160 000 ml @ 20 mls/hr IV . Q24H [facility] Rx#:[id number] Intake, IV Titration 200 Amount Cefepime 2 gm In Sodium 100 Chloride 0.9% 100 ml @ 200 mls/hr IVPB Q8HR [facility] Rx#:[id number] Sodium Chloride 0.9% 1, 100 000 ml @ 20 mls/hr IV . Q24H [facility] Rx#:[id number] Oral 440 360 Other: # Voids 2 - Exam GENERAL EXAM: Alert, active, comfortable in no apparent distress. On room air. HEAD: Normocephalic. EYES: Normal reaction of pupils, equal size. NOSE: Clear with pink turbinates. THROAT: No erythema or exudates. NECK: No masses, no JVD. CHEST: No chest wall deformity. LUNGS: Equal air entry with faint end expiratory wheeze, few scattered rhonchi. CVS: S1 and S2 normal with no audible murmur, regular rhythm. ABDOMEN: No hepatosplenomegaly, normal bowel sounds, no guarding or rigidity. SPINE: No scoliosis or deformity SKIN: No rashes CENTRAL NERVOUS SYSTEM: No focal deficits, tone is normal in all 4 extremities. EXTREMITIES: There is no peripheral edema. No clubbing, no cyanosis. Peripheral pulses are intact. - Labs CBC & Chem 7: 08/26/18 14:20 08/26/18 14:20 Labs: Abnormal Lab Results - Last 24 Hours (Table) 08/26/18 08/26/18 Range/Units 14:20 14:20 Hct 46.3 H (34.0-46.0) % MCHC 30.5 L (31.0-37.0) g/dL Chloride 108 H (98-107) mmol/L Total Protein 6.1 L (6.3-8.2) g/dL Microbiology - Last 24 Hours (Table) 08/26/18 12:30 Gram Stain - Preliminary Bronchial Washings - Random Bronchial Washings Culture - Preliminary Pseudomonas spec 08/26/18 12:30 Acid Fast Bacilli Smear - Final Bronchial Washings - Random Acid Fast Bacilli Culture - Preliminary 08/26/18 12:30 Fungal Culture - Preliminary Bronchial Washings - Random Assessment and Plan Assessment: Impression: #1 Acute exacerbation of chronic obstructive pulmonary disease complicated by purulent tracheobronchitis. Status post bronchoscopy with BAL today. Cultures are pending. The patient required admission to her bronchospasms and wheezing. #2 Chronic obstructive pulmonary disease disease with upper lobe predominance. Underlying asthmatic component is not completely ruled out. She's been maintained on Advair and Spiriva in the outpatient setting. #3 Hyperlipidemia. #4 History of atypical chest pain. #5 Chronic ALLERGIC rhinitis. #6 Arthritis. Plan: The patient was seen and evaluated by Dr. Richardson. She is improved today as compared to yesterday. Her cough has settled down significantly. We'll con tinue with the current antibiotics. Micro-is showing Pseudomonas species. We'll await further sensitivities. We'll continue to follow and make further recommendations based on her clinical status. I, the cosigning physician, performed a history & physical examination of the patient. Lungs sounds with bilateral end expiratory wheeze, diminished.. Maintaining good O2 saturations in the 90s on 4 L/m per nasal cannula. I discussed the assessment and plan of care with my nurse practitioner, Teresa Alejandro. I attest to the above note as dictated by her.
[2018-08-27] MEDS: IPRATROPIUM-ALBUTEROL 3 ML NEB INHALATION SCH ×2 (16:59→21:37)
[2018-08-27] MEDS: FORMOTEROL FUMARATE 20 MCG/2 ML NEBU INHALATION SCH (21:37)
[2018-08-27] MEDS: BUDESONIDE 1 MG/2 ML NEBU INHALATION SCH (21:37)
[2018-08-27] MEDS: METOPROLOL SUCCINATE (ER) 50 MG TAB.ER.24H PO SCH (23:46)
[2018-08-27] MEDS: LOSARTAN 50 MG TAB PO SCH (23:46)
[2018-08-28] MEDS: SODIUM CHLORIDE 0.9% 1,000 ML IV SCH (06:02)
[2018-08-28] MEDS: SULFAMETHOX-TMP 800-160MG 1 EACH TAB PO SCH (08:06)
[2018-08-28] MEDS: CEFEPIME 2 GM in SODIUM CHLORIDE 0.9% 100 ML IVPB SCH (08:06)
[2018-08-28] MEDS: METOPROLOL SUCCINATE (ER) 50 MG TAB.ER.24H PO SCH ×2 (08:06→21:22)
[2018-08-28] MEDS: BUDESONIDE 1 MG/2 ML NEBU INHALATION SCH ×2 (09:05→21:24)
[2018-08-28] MEDS: IPRATROPIUM-ALBUTEROL 3 ML NEB INHALATION SCH ×4 (09:05→21:24)
[2018-08-28] MEDS: FORMOTEROL FUMARATE 20 MCG/2 ML NEBU INHALATION SCH ×2 (09:14→21:24)
[2018-08-28] MEDS ORDERED: LEVOFLOXACIN 500MG-D5W PMX 500 MG in DEXTROSE/WATER 1 100ML.BAG IVPB STA (10:58)
--- NOTE | 2018-08-28 13:00 | P.PN ---
Subjective Progress Note Date: 08/28/18 Principal diagnosis: Acute exacerbation of COPD, complicated with purulent tracheobronchitis status post bronchoscopy This is a very pleasant 82-year-old female patient who follows with Dr. Ashley as her primary care physician. She has a history of gastric ulcers, system the [facility] er, urinary leakage, small hiatal hernia, diverticulosis, arthritis. She also has a previous smoking history of approximate 25 years at 1 pack per day. She does have significant chronic obstructive pulmonary disease. Her FEV1 value is 1.36 L which is 72% of predicted. Total lung capacity is at 93%. Diffusion capacity of 47%. She follows with Dr. Gilbert in our office for the same. She has been maintained on Advair, Spiriva, albuterol. She had recently been in the hospital and month ago for his COPD exacerbation. She did improve initially however she continued to have worsening shortness of breath cough and congestion. Dr. Gilbert had performed an elective bronchoscopy and BAL on the patient today. Following the procedure she remained quite bronchospastic and wheezy. There was thick mucus removed and her bronchial tubes were very friable and bleeding. Cultures were sent and are pending. He elected to keep the patient in the hospital. She is seen in the postoperative setting. She is awake and alert in no acute distress. She continues to have a loose productive of blood-tinged sputum. She's been initiated on cefepime and Bactrim along with Tussionex and IV Solu-Medrol. He is maintaining good O2 saturations in the mid 90s on 4 L/m per nasal cannula. She does have a temperature of 99.5 temporal. The patient is seen today 08/27/2017 in follow-up on the regular medical floor. She is awake and alert in no acute distress. She is doing quite a bit better today as compared to yesterday. Her cough has settled down significantly. She is maintaining good O2 saturations in the 90s on room air. She's been afebrile. Hemodynamically stable. Bronchial wash is growing Pseudomonas species. She is currently on Bactrim and cefepime. White count 9.3. Hemoglobin 14.1. Creatinine 0.70. On 08/28/2018 patient seen in follow-up on the selective care unit, she is calm and comfortable, in no acute distress, she states her breathing is improving, still has some mild chest congestion, lung sounds are positive for scattered rhonchi and rales particularly at the right lower base posteriorly, bronchial wash cultures were positive for pseudomonas species. Patient was treated with IV cefepime initially, we'll switch the IV antibiotic coverage to oral Levaquin, continue with breathing treatments. Vital signs are stable, patient apparently had a episode of tachycardia with a rate of 125 BPM last night, but denied any chest pain, denied any worsening shortness of breath, currently in sinus tach, with a rate of 108 BPM. No new labs or chest x-rays, clinically patient is stable, improving. Pulse ox 95%. Objective - Vital Signs Vital signs: Vital Signs Temp 98.5 F 08/28/18 07:31 Pulse 104 H 08/28/18 12:15 Resp 18 08/28/18 07:31 BP 118/74 08/28/18 07:31 Pulse Ox 95 08/28/18 07:31 Intake & Output 08/27/18 08/28/18 08/28/18 18:59 06:59 18:59 Intake Total 860 300 Balance 860 300 Intake: IV 260 Cefepime 2 gm In Sodium 100 Chloride 0.9% 100 ml @ 200 mls/hr IVPB Q8HR [facility] Rx#:[id number] Sodium Chloride 0.9% 1, 160 000 ml @ 20 mls/hr IV . Q24H [facility] Rx#:[id number] Oral 600 300 Other: # Voids 1 - Exam GENERAL EXAM: Alert, pleasant, 82-year-old the -N[place]ales[place] female, on room air, with a pulse ox of 95% comfortable in no apparent distress. HEAD: Normocephalic/atraumatic. EYES: Normal reaction of pupils, equal size. Conjunctiva pink, sclera white. NOSE: Clear with pink turbinates. THROAT: No erythema or exudates. NECK: No masses, no JVD, no thyroid enlargement, no adenopathy. CHEST: No chest wall deformity. Symmetrical expansion. LUNGS: Equal air entry with Rhonchi, and rales, patient does have a loose congested cough CVS: Regular rate and rhythm, normal S1 and S2, no gallops, no murmurs, no rubs ABDOMEN: Soft, nontender. No hepatosplenomegaly, normal bowel sounds, no guarding or rigidity. EXTREMITIES: No clubbing, no edema, no cyanosis, 2+ pulses and upper and lower extremities. MUSCULOSKELETAL: Muscle strength and tone normal. SPINE: No scoliosis or deformity SKIN: No rashes CENTRAL NERVOUS SYSTEM: Alert and oriented -3. No focal deficits, tone is normal in all 4 extremities. PSYCHIATRIC: Alert and oriented -3. Appropriate affect. Intact judgment and insight. - Labs CBC & Chem 7: 08/26/18 14:20 08/26/18 14:20 Labs: Microbiology - Last 24 Hours (Table) 08/26/18 12:30 Gram Stain - Preliminary Bronchial Washings - Random Bronchial Washings Culture - Preliminary Pseudomonas spec Assessment and Plan Plan: Assessment: #1 Acute exacerbation of chronic obstructive pulmonary disease complicated by purulent tracheobronchitis. Status post bronchoscopy with BAL today. Cultures are pending. The patient required admission to her bronchospasms and wheezing. #2 Chronic obstructive pulmonary disease disease with upper lobe predominance. Underlying asthmatic component is not completely ruled out. She's been maintained on Advair and Spiriva in the outpatient setting. #3 Hyperlipidemia. #4 History of atypical chest pain. #5 Chronic ALLERGIC rhinitis. #6 Arthritis. Plan: Patient was seen and evaluated with Dr. Richardson, she continues to improve, still has chest congestion, or cough is improving, continue with the breathing treatments, cultures are showing Pseudomonas species, patient was initially treated with cefepime, we will switch antibiotic coverage to oral Levaquin, clinically she is improving, presented as tolerated, I performed a history & physical examination of the patient and discussed their management with my nurse practitioner, Lori Walker. I reviewed the nurse practitioner's note and agree with the documented findings and plan of care. Lung sounds are positive for diffuse diffuse rhonchi and rales. The findings and the impression was discussed with the patient. I attest to the documentation by the nurse practitioner. Time with Patient: Less than 30
[2018-08-28] MEDS ORDERED: MAGNESIUM HYDROXIDE 2,400 MG/10 ML CUP PO PRN (13:15)
[2018-08-28] MEDS ORDERED: guaiFENesin 600 MG TABLET.ER PO PRN (13:22)
[2018-08-28] MEDS ORDERED: BENZONATATE 100 MG CAP PO PRN (13:22)
[2018-08-28] MEDS ORDERED: ALBUTEROL NEBULIZED 2.5 MG/3 ML INHALATION PRN (13:22)
--- NOTE | 2018-08-28 13:50 | P.PN ---
Subjective Progress Note Date: 08/28/18 Principal diagnosis: Acute exacerbation COPD This 82-year-old female was admitted to the hospital after bronchoscopy as she went to acute bronchospasm and shortness of breath. Following admission patient's recent updrafts. Oxygenation is improved. The patient has tracheobronchitis. Sputum is showing Pseudomonas. On November the patient to FORTAZ and oral Cipro. Patient is being followed by pulmonary. Patient is feeling better. Her appetite is improved. Breathing is improved. Still has a congested cough. Sputum intermittently. No hemoptysis. Denies chest pain. He is tachycardic last night EKG shows sinus tachycardia. Heart rate is around 106 at present. REVIEW OF SYSTEMS: Neuro: Denies any headaches dizziness. Psych: Denies anxiety depression feels oriented. Cardiac: Denies chest pain and angina palpitations. Respiratory: Improved shortness of breath, cough with intermittent sputum production. GI: Denies nausea vomiting or abdominal pain. No diarrhea or constipation, no bowel movement yet. : Denies dysuria hematuria. Extremities: Denies pain. No edema. Skin: Intact. Constitutional: No fever, chills. Objective - Vital Signs Vital signs: Vital Signs Temp 98.5 F 08/28/18 07:31 Pulse 104 H 08/28/18 12:15 Resp 18 08/28/18 07:31 BP 118/74 08/28/18 07:31 Pulse Ox 95 08/28/18 07:31 Intake & Output 08/27/18 08/28/18 08/28/18 18:59 06:59 18:59 Intake Total 860 300 240 Balance 860 300 240 Intake: IV 260 Cefepime 2 gm In Sodium 100 Chloride 0.9% 100 ml @ 200 mls/hr IVPB Q8HR [facility] Rx#:[id number] Sodium Chloride 0.9% 1, 160 000 ml @ 20 mls/hr IV . Q24H [facility] Rx#:[id number] Oral 600 300 240 Other: # Voids 1 PHYSICAL EXAMINATION: Cooperative, at present in no acute distress. HEENT: Neck supple. No JVD. Chest: Occasional scattered rhonchi clear with coughing, no wheezing have resolved mildly decreased increase percussion bilateral Cardiac: Normal S1-S2 mildly tachycardic no gallops no murmur . Abdomen: Soft bowel sounds present. Extremities: No edema [no tenderness ] Neurologically: [Awake, alert, oriented with well-coordinated movements.] - Labs CBC & Chem 7: 08/26/18 14:20 08/26/18 14:20 Labs: Microbiology - Last 24 Hours (Table) 08/26/18 12:30 Gram Stain - Preliminary Bronchial Washings - Random Bronchial Washings Culture - Preliminary Pseudomonas spec Assessment and Plan Assessment: ASSESSMENT: 1. Acute exacerbation COPD. 2. Tracheobronchitis with pseudomonas. 3. Essential hypertension. 4. Sinus tachycardia. 5. sensitivity to steroids PLAN:Continue present medical regimen. Will switch patient to Fortaz and Cipro. Pulmonary physician input continue].
--- NOTE | 2018-08-28 14:09 | HP ---
HISTORY AND PHYSICAL DATE OF ADMISSION: 08/26/2018. DATE OF SERVICE: 08/27/2018 Patient was seen on 08/27/2018. CHIEF COMPLAINT: Short of breath. HISTORY OF PRESENT ILLNESS: This is an 82-year-old female who was admitted to the hospital after undergoing bronchoscopy. Due to some mixup and confusion, the patient is admitted to Dr. Gilbert. My office had been called Wednesday saying that the patient was being admitted. However, we did not see that the patient was admitted to my service. I saw the patient yesterday, did not do a dictation. The patient's condition being dictated today. The patient admitted to the hospital after bronchoscopy. The patient recently had been hospitalized because of shortness of breath, tracheobronchitis. The patient had been treated with inpatient with antibiotics and steroids. The patient had been seen by the docent coordinator at that office visit too. The patient is sensitive to steroids and causes some confusion. The patient had not been taking her steroids as recommended. She presents to the docent coordinator for continued shortness of breath and in view of this they have her in for bronchoscopy. Post bronchoscopy, the patient became extremely bronchospastic and short of breath. In view of this, she is admitted. The patient is not given any steroids. The patient started on antibiotics. The patient has had no fever, chills. PAST MEDICAL HISTORY: 1. Significant for COPD and bronchial asthma. 2. Essential hypertension. 3. Previous elevated liver enzymes, suspected to be fatty liver. 4. History of degenerative arthritis. 5. History of essential hypertension. There has been no history of any liver disease, kidney disease, ulcers, TB, hepatitis. No history of any rheumatic fever, myocardial infarction, CVA. No history of infective hepatitis. No history of any rheumatic fever, myocardial infarction or CVA. PAST SURGICAL HISTORY: Significant for cholecystectomy, arthroscopy, colonoscopy. PERSONAL HISTORY: The patient is a nonsmoker at present. The patient was a former smoker, quit smoking about 20 years ago. However, the used to be a smoker. Alcohol none. FAMILY MEDICAL HISTORY: Mother had bronchial asthma. Father of prostate disease, possible malignancy. The patient has a sister who has had colon cancer. Another sister with lung cancer. Mother also had coronary artery disease. The patient has a brother with a history of coronary artery disease. ALLERGIES: With STEROIDS she does have some hallucination and confusion and NORCO. MEDICATIONS: Medications at present included guaifenesin 1200 mg b.i.d. Norvasc 10 mg daily, CoQ10 100 mg daily, Spiriva 1 capsule daily by inhalation, metoprolol 25 b.i.d., losartan 100 mg daily, Tessalon Perles p.r.n., and nebulizer with Ventolin. SOCIAL HISTORY: Patient is . The patient has a spouse, has a lung mass which has been gradually increasing for the past 5 years and had elected no treatment, has had a previous history of prostate cancer and COPD. REVIEW OF SYSTEMS: NEURO: Denies any headaches, dizziness. No double vision, blurred vision. No symptoms of TIA, syncope, seizures. PSYCH: Confusion and some hallucinations with steroid use. CARDIAC: No chest pain, angina, palpitation. RESPIRATORY: Shortness of breath, cough. No hemoptysis. GI: No nausea, vomiting, abdominal pain, diarrhea. Some constipation. : No symptoms of dysuria, hematuria, urgency, frequency. EXTREMITIES: No pain, edema. CONSTITUTIONAL: No fever, chills. HEMATOLOGICAL: No anemia or bleeding disorder. ENDOCRINE: No history of diabetes mellitus, hypothyroidism. SKIN: No rashes. CONSTITUTIONAL: No fever, chills. PHYSICAL EXAMINATION: Pleasant female at present in no distress. Vital signs revealed temperature 98.5, pulse 106, respirations 15, blood pressure 132/78, pulse ox 96% on room air. HEENT: Normocephalic. Pupils reactive. Oral cavity moist. Evidence of previous surgery in the upper lip. NECK: Reveals no JVD. No carotid bruits. No thyromegaly. CHEST EXAMINATION: Increased percussion with bilateral generalized mild decreased air flow. No wheezing or rhonchi appreciated at this time. CARDIAC: Sounds S1, S2 with no gallops. Systolic murmur 2/6 left sternal border. ABDOMEN: Mildly protuberant, soft. Bowel sounds are active. EXTREMITIES: Reveal no edema. Good pulses both upper and lower extremities. NEUROLOGICALLY: Awake, alert, oriented x3 with well-coordinated movements. LABORATORY ASSESSMENT: White count of 9.3, hemoglobin 14.1, normal electrolytes, BUN, creatinine. Renal functions normal. Chest x-ray had chronic plate basilar atelectasis, no acute cardiopulmonary process. ASSESSMENT: 1. Bronchial asthma with exacerbation. 2. Chronic obstructive pulmonary disease. 3. Tracheobronchitis. 4. Status post bronchoscopy. 5. Essential hypertension. 6. Sinus tachycardia. PLAN: The patient is being given antibiotics, oxygen, updrafts. Steroids are being held. The patient's condition discussed with the patient. Prognosis remains guarded. MMODL / IJN: [id number] /
[2018-08-28] MEDS ORDERED: NON-FORMULARY DRUG (Fluticasone/Salmeterol [Advair 500-50 Diskus] 1 PUFF) INHALATION SCH (20:00)
[2018-08-28] MEDS: LOSARTAN 50 MG TAB PO SCH (21:21)
[2018-08-29] MEDS: SODIUM CHLORIDE 0.9% 1,000 ML IV SCH (05:06)
[2018-08-29 07:56] VITALS: BP 127/77; RESP 15; TEMP 98.1
[2018-08-29] MEDS: METOPROLOL SUCCINATE (ER) 50 MG TAB.ER.24H PO SCH (07:57)
[2018-08-29] MEDS ORDERED: MAGNESIUM HYDROXIDE 2,400 MG/10 ML CUP PO PRN (08:06)
[2018-08-29] MEDS: IPRATROPIUM-ALBUTEROL 3 ML NEB INHALATION SCH ×2 (08:12→11:39)
[2018-08-29] MEDS: FORMOTEROL FUMARATE 20 MCG/2 ML NEBU INHALATION SCH (08:12)
[2018-08-29] MEDS: BUDESONIDE 1 MG/2 ML NEBU INHALATION SCH (08:13)
[2018-08-29] MEDS ORDERED: amLODIPine 10 MG TAB PO SCH (09:00)
[2018-08-29] MEDS ORDERED: ASPIRIN 81 MG PO SCH (09:00)
[2018-08-29] MEDS ORDERED: CO Q PO SCH (09:00)
[2018-08-29] MEDS ORDERED: CIPROFLOXACIN HCL 250 MG TAB PO SCH (09:00)
[2018-08-29 11:53] VITALS: PULSE 84
--- NOTE | 2018-08-29 16:22 | P.PN ---
Subjective Progress Note Date: 08/29/18 Principal diagnosis: Acute exacerbation of COPD, complicated with purulent tracheobronchitis status post bronchoscopy This is a very pleasant 82-year-old female patient who follows with Dr. Ashley as her primary care physician. She has a history of gastric ulcers, system the waqas er, urinary leakage, small hiatal hernia, diverticulosis, arthritis. She also has a previous smoking history of approximate 25 years at 1 pack per day. She does have significant chronic obstructive pulmonary disease. Her FEV1 value is 1.36 L which is 72% of predicted. Total lung capacity is at 93%. Diffusion capacity of 47%. She follows with Dr. Gilbert in our office for the same. She has been maintained on Advair, Spiriva, albuterol. She had recently been in the hospital and month ago for his COPD exacerbation. She did improve initially however she continued to have worsening shortness of breath cough and congestion. Dr. Gilbert had performed an elective bronchoscopy and BAL on the patient today. Following the procedure she remained quite bronchospastic and wheezy. There was thick mucus removed and her bronchial tubes were very friable and bleeding. Cultures were sent and are pending. He elected to keep the patient in the hospital. She is seen in the postoperative setting. She is awake and alert in no acute distress. She continues to have a loose productive of blood-tinged sputum. She's been initiated on cefepime and Bactrim along with Tussionex and IV Solu-Medrol. He is maintaining good O2 saturations in the mid 90s on 4 L/m per nasal cannula. She does have a temperature of 99.5 temporal. The patient is seen today 08/27/2017 in follow-up on the regular medical floor. She is awake and alert in no acute distress. She is doing quite a bit better today as compared to yesterday. Her cough has settled down significantly. She is maintaining good O2 saturations in the 90s on room air. She's been afebrile. Hemodynamically stable. Bronchial wash is growing Pseudomonas species. She is currently on Bactrim and cefepime. White count 9.3. Hemoglobin 14.1. Creatinine 0.70. On 08/28/2018 patient seen in follow-up on the selective care unit, she is calm and comfortable, in no acute distress, she states her breathing is improving, still has some mild chest congestion, lung sounds are positive for scattered rhonchi and rales particularly at the right lower base posteriorly, bronchial wash cultures were positive for pseudomonas species. Patient was treated with IV cefepime initially, we'll switch the IV antibiotic coverage to oral Levaquin, continue with breathing treatments. Vital signs are stable, patient apparently had a episode of tachycardia with a rate of 125 BPM last night, but denied any chest pain, denied any worsening shortness of breath, currently in sinus tach, with a rate of 108 BPM. No new labs or chest x-rays, clinically patient is stable, improving. Pulse ox 95%. On 08/29/2018 patient seen in follow-up on medical surgical floor. Awake and alert, in no acute distress, sitting up on the edge of the bed, denies any worsening dyspnea, lung sounds are less bronchospastic on today's exam. Room air pulse ox is 93%, no fever or chills, hemodynamically stable, no new labs today, bronchial wash culture showed pseudomonas aeruginosa. Antibiotic coverage is with Fortaz, and Cipro. Patient is requesting to go home, from pulmonary perspective she is improving, and can be discharged home on 2 week course of oral Cipro. Objective - Vital Signs Vital signs: Vital Signs Temp 98.1 F 08/29/18 07:25 Pulse 84 08/29/18 11:52 Resp 15 08/29/18 07:25 BP 127/77 08/29/18 07:25 Pulse Ox 93 L 08/29/18 07:25 Intake & Output 08/28/18 08/29/18 08/29/18 18:59 06:59 18:59 Intake Total 400 180 Balance 400 180 Intake: IV 160 Sodium Chloride 0.9% 1, 160 000 ml @ 20 mls/hr IV . Q24H [facility] Rx#:[id number] Oral 240 180 Other: # Voids 3 0 1 # Bowel Movements 0 - Exam GENERAL EXAM: Alert, pleasant, 82-year-old the -[place]izen [place] female, on room air, with a pulse ox of 95% comfortable in no apparent distress. HEAD: Normocephalic/atraumatic. EYES: Normal reaction of pupils, equal size. Conjunctiva pink, sclera white. NOSE: Clear with pink turbinates. THROAT: No erythema or exudates. NECK: No masses, no JVD, no thyroid enlargement, no adenopathy. CHEST: No chest wall deformity. Symmetrical expansion. LUNGS: Equal air entry with Rhonchi, and rales, less congested and wheezy on today's exam CVS: Regular rate and rhythm, normal S1 and S2, no gallops, no murmurs, no rubs ABDOMEN: Soft, nontender. No hepatosplenomegaly, normal bowel sounds, no guarding or rigidity. EXTREMITIES: No clubbing, no edema, no cyanosis, 2+ pulses and upper and lower extremities. MUSCULOSKELETAL: Muscle strength and tone normal. SPINE: No scoliosis or deformity SKIN: No rashes CENTRAL NERVOUS SYSTEM: Alert and oriented -3. No focal deficits, tone is normal in all 4 extremities. PSYCHIATRIC: Alert and oriented -3. Appropriate affect. Intact judgment and insight. - Labs CBC & Chem 7: 08/26/18 14:20 08/26/18 14:20 Labs: Microbiology - Last 24 Hours (Table) 08/26/18 12:30 Gram Stain - Final Bronchial Washings - Random Bronchial Washings Culture - Final Pseudomonas aeruginosa Assessment and Plan Plan: Assessment: #1 Acute exacerbation of chronic obstructive pulmonary disease complicated by purulent tracheobronchitis. Status post bronchoscopy with BAL today. Cultures are pending. The patient required admission to her bronchospasms and wheezing. Bronchial wash culture showed pseudomonas aeruginosa #2 Chronic obstructive pulmonary disease disease with upper lobe predominance. Underlying asthmatic component is not completely ruled out. She's been maintained on Advair and Spiriva in the outpatient setting. #3 Hyperlipidemia. #4 History of atypical chest pain. #5 Chronic ALLERGIC rhinitis. #6 Arthritis. Plan: Patient is doing well, no acute events overnight, less congestion, less bronchial spastic and today's exam, vital signs are stable, no fever or chills, from pulmonary perspective patient could be discharged home today on 2 week course of oral ciprofloxacin at 500 mg twice daily. No need for prednisone taper, we'll need follow-up with Dr. Gilbert in the office in 7-10 days. I performed a history & physical examination of the patient and discussed their management with my nurse practitioner, Lori Walker. I reviewed the nurse practitioner's note and agree with the documented findings and plan of care. Lung sounds are positive for diffuse diffuse rhonchi and rales. The findings and the impression was discussed with the patient. I attest to the documentation by the nurse practitioner. Time with Patient: Less than 30
== END 2018-08-29 15:00 | disposition home or self-care (01) | DRG 167 ==
LOC: ORWHC2ENDO 10:33 → 4SSUR 13:27 → ORWHC2ENDO 08-29 04:15
PROVIDERS: ADMIT Internal Medicine Critical Care Medicine; ATTEND Internal Medicine Critical Care Medicine
PROC: 0B9G8ZX Drainage of Left Upper Lung Lobe, Via Natural or Artificial Opening Endoscopic, Diagnostic (ICD-10-PCS; 2018-08-26)
PROC: 0B9H8ZX Drainage of Lung Lingula, Via Natural or Artificial Opening Endoscopic, Diagnostic (ICD-10-PCS; principal; 2018-08-26 12:00)
DX: J44.1 Chronic obstructive pulmonary disease with (acute) exacerbation (principal); J45.901 Unspecified asthma with (acute) exacerbation; R04.2 Hemoptysis; J39.8 Other specified diseases of upper respiratory tract; J98.09 Other diseases of bronchus, not elsewhere classified; K76.89 Other specified diseases of liver; E78.5 Hyperlipidemia, unspecified; I10 Essential (primary) hypertension; R32 Unspecified urinary incontinence; I25.2 Old myocardial infarction; M19.90 Unspecified osteoarthritis, unspecified site; H93.13 Tinnitus, bilateral; K44.9 Diaphragmatic hernia without obstruction or gangrene; K57.90 Diverticulosis of intestine, part unspecified, without perforation or abscess without bleeding; Z79.82 Long term (current) use of aspirin; Z79.899 Other long term (current) drug therapy; Z90.710 Acquired absence of both cervix and uterus; Z87.891 Personal history of nicotine dependence; Z87.11 Personal history of peptic ulcer disease; Z88.5 Allergy status to narcotic agent; Z88.8 Allergy status to other drugs, medicaments and biological substances; Z90.49 Acquired absence of other specified parts of digestive tract; Z80.0 Family history of malignant neoplasm of digestive organs; Z80.1 Family history of malignant neoplasm of trachea, bronchus and lung; Z82.49 Family history of ischemic heart disease and other diseases of the circulatory system; Z82.5 Family history of asthma and other chronic lower respiratory diseases
CPT/HCPCS: 31624; 71045; 80053; 85025; 87070; 87077; 87102; 87116; 87186; 87205; 87206; 87252; 87496; 87498; 87502; 87529; 87634; 87798; 88108; 88305; 93005; 94640

== ENCOUNTER 2018-09-28 17:19 | Emergency (ER) | payer MEDICARE, BC ==
[2018-09-28] MEDS ORDERED: SODIUM CHLORIDE 0.9% 500 ML 500 ML IV STA (17:48)
--- NOTE | 2018-09-28 17:56 | ED ---
General Adult HPI - General Chief complaint: Fall Stated complaint: syncope, fall Time Seen by Provider: 09/28/18 17:37 Source: patient, RN notes reviewed Mode of arrival: ambulatory Limitations: no limitations - History of Present Illness Initial comments: This an 82-year-old female sent emergency Department chief complaint of fall. Patient states that she was laying on the couch states that she stood up states that she felt very lightheaded and dizzy at this time states that she then proceeded to fall but never loss conscious. Patient states she fell down striking her left knee and she complaint left knee pain. Patient states that she denies any head injury no loss conscious denies any neck pain. Patient is currently being treated for pneumonia on ciprofloxacin prescribed by Dr. Gilbert. Patient has no current nausea, vomiting, diarrhea constipation. Denies current chest pain other than when she coughs. - Related Data Home Medications Medication Instructions Recorded Confirmed Aspirin 81 mg PO DAILY 10/30/14 08/29/18 Losartan Potassium 100 mg PO HS 10/30/14 08/29/18 Metoprolol Succinate [Toprol XL] 25 mg PO BID 10/30/14 08/29/18 amLODIPine BESYLATE [Norvasc] 10 mg PO DAILY 02/02/18 08/29/18 Fluticasone/Salmeterol [Advair 1 puff INHALATION RT-BID 06/23/18 08/29/18 500-50 Diskus] Tiotropium [place] [Spiriva] 1 cap INHALATION RT-DAILY 06/23/18 08/29/18 Benzonatate [Tessalon Perles] 200 mg PO TID BETWEEN MEALS PRN 08/07/18 08/29/18 Ubidecarenone [Co Q-10] 100 mg PO DAILY 08/07/18 08/29/18 Albuterol Nebulized (Conc) 2.5 mg INHALATION RT-QID PRN 08/24/18 08/29/18 [Ventolin Nebulized (Conc)] guaiFENesin [Mucinex] 1,200 mg PO Q12HR PRN 08/24/18 08/29/18 Previous Rx's Medication Instructions Recorded Ciprofloxacin HCl [Cipro] 500 mg PO Q12HR 14 Days #28 tablet 08/29/18 Allergies Allergy/AdvReac Type Severity Reaction Status Date / Time hydrocodone bitartrate AdvReac states Verified 09/28/18 17:27 [From Vicodin] "doesn't make me feel good" prednisone AdvReac Hallucinati Verified 09/28/18 17:27 ons Review of Systems ROS Statement: Those systems with pertinent positive or pertinent negative responses have been documented in the HPI. ROS Other: All systems not noted in ROS Statement are negative. 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 COLONOSCOPY-LARGE POLYP REMOVED, egd, Past Anesthesia/Blood Transfusion Reactions: No Reported Reaction Additional Past Anesthesia/Blood Transfusion Reaction / Comment(s): no hx blood transfusion Past Psychological History: No Psychological Hx Reported Smoking Status: Former smoker Past Alcohol Use History: Occasional Past Drug Use History: None Reported - Past Family History Sister(s) Family Medical History: Cancer Additional Family Medical History / Comment(s): #1 sister colon,# 2 sister lung Father Family Medical History: Cancer Additional Family Medical History / Comment(s): prostate Mother Family Medical History: Asthma Additional Family Medical History / Comment(s): heart problems General Exam Limitations: no limitations General appearance: alert, in no apparent distress Head exam: Present: atraumatic, normocephalic, normal inspection Eye exam: Present: normal appearance, PERRL, EOMI. Absent: scleral icterus, conjunctival injection, periorbital swelling ENT exam: Present: normal exam, normal oropharynx, mucous membranes moist Neck exam: Present: normal inspection, full ROM. Absent: tenderness, meningismus, lymphadenopathy Respiratory exam: Present: normal lung sounds bilaterally. Absent: respiratory distress, wheezes, rales, rhonchi, stridor Cardiovascular Exam: Present: regular rate, normal rhythm, normal heart sounds. Absent: systolic murmur, diastolic murmur, rubs, gallop, clicks GI/Abdominal exam: Present: soft, normal bowel sounds. Absent: distended, tenderness, guarding, rebound, rigid Extremities exam: Present: other (Left knee full range of motion mild tenderness to anterior surface no swelling no discoloration noted) Skin exam: Present: warm, dry, intact, normal color. Absent: rash Course Vital Signs 09/28/18 09/28/18 09/28/18 17:25 18:29 19:00 Temperature 98.4 F Pulse Rate 93 80 Pulse Rate [ 93 Sitting] Pulse Rate [ 98 Standing] Pulse Rate [ 92 Supine] Respiratory 18 18 Rate Blood Pressure 156/78 118/79 Blood Pressure 152/80 [Sitting] Blood Pressure 160/85 [Standing] Blood Pressure 143/74 [Supine] O2 Sat by Pulse 96 94 L Oximetry EKG Findings - EKG Comments: EKG Findings:: EKG performed at 18:10 normal sinus rhythm with rate of 93 [place] 180 QRS 84 QT/QTC 378/469 Medical Decision Making - Medical Decision Making 82-year-old female presented for episode of dizziness, near-syncope fall. Patient had recent cardiac inpatient stay. Patient had lab work, EKG, urinalysis and x-rays which unremarkable. This most likely was related to vaso vagal that he'll reaction. Patient will be discharged she is advised to slowly standup, make sure she has aberrancy for ambulating. Patient will follow-up with PCP and return for any worsening symptoms. - Lab Data Result diagrams: 09/28/18 18:00 09/28/18 18:00 Lab Results 09/28/18 09/28/18 09/28/18 Range/Units 18:00 18:00 18:00 WBC 9.1 (3.8-10.6) k/uL RBC 4.67 (3.80-5.40) m/uL Hgb 14.2 (11.4-16.0) gm/dL Hct 43.9 (34.0-46.0) % MCV 94.1 (80.0-100.0) fL MCH 30.3 (25.0-35.0) pg MCHC 32.2 (31.0-37.0) g/dL RDW 14.1 (11.5-15.5) % Plt Count 376 (150-450) k/uL Neutrophils % 71 % Lymphocytes % 20 % Monocytes % 4 % Eosinophils % 3 % Basophils % 1 % Neutrophils # 6.5 (1.3-7.7) k/uL Lymphocytes # 1.8 (1.0-4.8) k/uL Monocytes # 0.4 (0-1.0) k/uL Eosinophils # 0.2 (0-0.7) k/uL Basophils # 0.1 (0-0.2) k/uL Sodium 140 (137-145) mmol/L Potassium 4.0 (3.5-5.1) mmol/L Chloride 111 H (98-107) mmol/L Carbon Dioxide 24 (22-30) mmol/L Anion Gap 5 mmol/L BUN 14 (7-17) mg/dL Creatinine 0.68 (0.52-1.04) mg/dL Est GFR (CKD-EPI)AfAm >90 (>60 ml/min/1.73 sqM) Est GFR (CKD-EPI)NonAf 83 (>60 ml/min/1.73 sqM) Glucose 97 (74-99) mg/dL Calcium 9.6 (8.4-10.2) mg/dL Magnesium 2.1 (1.6-2.3) mg/dL Total Bilirubin 0.4 (0.2-1.3) mg/dL AST 21 (14-36) U/L ALT 21 (9-52) U/L Alkaline Phosphatase 100 (38-126) U/L Troponin I <0.012 (0.000-0.034) ng/mL Total Protein 6.5 (6.3-8.2) g/dL Albumin 4.0 (3.5-5.0) g/dL Urine Color Urine Appearance (Clear) Urine pH (5.0-8.0) Ur Specific [place] (1.001-1.035) Urine Protein (Negative) Urine Glucose (UA) (Negative) Urine Ketones (Negative) Urine Blood (Negative) Urine Nitrite (Negative) Urine Bilirubin (Negative) Urine Urobilinogen (<2.0) mg/dL Ur Leukocyte Esterase (Negative) 09/28/18 Range/Units 18:34 WBC (3.8-10.6) k/uL RBC (3.80-5.40) m/uL Hgb (11.4-16.0) gm/dL Hct (34.0-46.0) % MCV (80.0-100.0) fL MCH (25.0-35.0) pg MCHC (31.0-37.0) g/dL RDW (11.5-15.5) % Plt Count (150-450) k/uL Neutrophils % % Lymphocytes % % Monocytes % % Eosinophils % % Basophils % % Neutrophils # (1.3-7.7) k/uL Lymphocytes # (1.0-4.8) k/uL Monocytes # (0-1.0) k/uL Eosinophils # (0-0.7) k/uL Basophils # (0-0.2) k/uL Sodium (137-145) mmol/L Potassium (3.5-5.1) mmol/L Chloride (98-107) mmol/L Carbon Dioxide (22-30) mmol/L Anion Gap mmol/L BUN (7-17) mg/dL Creatinine (0.52-1.04) mg/dL Est GFR (CKD-EPI)AfAm (>60 ml/min/1.73 sqM) Est GFR (CKD-EPI)NonAf (>60 ml/min/1.73 sqM) Glucose (74-99) mg/dL Calcium (8.4-10.2) mg/dL Magnesium (1.6-2.3) mg/dL Total Bilirubin (0.2-1.3) mg/dL AST (14-36) U/L ALT (9-52) U/L Alkaline Phosphatase (38-126) U/L Troponin I (0.000-0.034) ng/mL Total Protein (6.3-8.2) g/dL Albumin (3.5-5.0) g/dL Urine Color Light Yellow Urine Appearance Clear (Clear) Urine pH 7.0 (5.0-8.0) Ur Specific [place] 1.004 (1.001-1.035) Urine Protein Negative (Negative) Urine Glucose (UA) Negative (Negative) Urine Ketones Negative (Negative) Urine Blood Negative (Negative) Urine Nitrite Negative (Negative) Urine Bilirubin Negative (Negative) Urine Urobilinogen <2.0 (<2.0) mg/dL Ur Leukocyte Esterase Negative (Negative) Disposition Clinical Impression: Fall, Near syncope, Knee contusion Disposition: HOME SELF-CARE Condition: Stable Instructions (If sedation given, give patient instructions): Near Syncope (ED) Additional Instructions: Please return to the Emergency Department if symptoms worsen or any other concerns. Is patient prescribed a controlled substance at d/c from ED?: No Referrals: Sanju Ashley MD [Primary Care Provider] - 1-2 days Time of Disposition: 20:09
[2018-09-28 18:27] LABS: Basophils # (A) 0.1 k/uL (0-0.2); Basophils % (A) 1 %; Eosinophils # (A) 0.2 k/uL (0-0.7); Eosinophils % (A) 3 %; HCT 43.9 % (34.0-46.0); HGB 14.2 gm/dL (11.4-16.0); Lymphocytes # (A) 1.8 k/uL (1.0-4.8); Lymphocytes % (A) 20 %; MCH 30.3 pg (25.0-35.0); MCHC 32.2 g/dL (31.0-37.0); MCV 94.1 fL (80.0-100.0); Mean Platelet Volume 7.5; Monocytes # (A) 0.4 k/uL (0-1.0); Monocytes % (A) 4 %; Neutrophils # (A) 6.5 k/uL (1.3-7.7); Neutrophils % (A) 71 %; Platelet Count 376 k/uL (150-450); RBC 4.67 m/uL (3.80-5.40); RDW 14.1 % (11.5-15.5); WBC 9.1 k/uL (3.8-10.6)
[2018-09-28 18:38] LABS: ALT 21 U/L (9-52); AST 21 U/L (14-36); Alkaline Phosphatase 100 U/L (38-126); Anion Gap 5 mmol/L; Blood Urea Nitrogen 14 mg/dL (7-17); Calcium 9.6 mg/dL (8.4-10.2); Carbon Dioxide 24 mmol/L (22-30); Chloride 111 mmol/L (98-107); Glucose 97 mg/dL (74-99); Magnesium 2.1 mg/dL (1.6-2.3); Sodium 140 mmol/L (137-145); Total Bilirubin 0.4 mg/dL (0.2-1.3); Total Protein 6.5 g/dL (6.3-8.2)
[2018-09-28 18:52] LABS: Appearance,Urine Clear (Clear); Bilirubin,Urine Negative (Negative); Blood,Urine Negative (Negative); Color,Urine Light Yellow; Glucose,Urine (UA) Negative (Negative); Ketones,Urine Negative (Negative); Leukocyte Esterase,Urine Negative (Negative); Nitrite,Urine Negative (Negative); Protein,Urine Negative (Negative); Specific Gravity,Urine 1.004 (1.001-1.035); Urobilinogen,Urine <2.0 mg/dL (<2.0)
--- NOTE | 2018-09-28 19:55 | XR ---
EXAMINATION: XR chest 2V DATE AND TIME: 09/28/2018 7:13 PM CLINICAL INDICATION: PHH; syncope TECHNIQUE: Departmental protocol COMPARISON: 08/26/2018 FINDINGS: There is hyperinflation. The lungs are clear. The pleural spaces are negative. The cardiac silhouette is mildly enlarged. The remainder of the mediastinal silhouette is unremarkabl e. The skeletal structures and soft tissues are negative for acute findings. IMPRESSION: NO ACUTE PROCESS.
--- NOTE | 2018-09-28 19:55 | XR ---
PROCEDURE: XR knee complete LT - 3V DATE AND TIME: 09/28/2018 7:17 PM CLINICAL INDICATION: PHH; Pain TECHNIQUE: Department protocol COMPARISON: None FINDINGS: There is no fracture or malalignment. Tricompartmental moderate marked osteoarthritis wills es noted. The soft tissues are unremarkable. IMPRESSION: NO ACUTE PROCESS.
[2018-09-28 20:26] VITALS: BP 125/60; PULSE 81; RESP 16; TEMP 98.5
== END 2018-09-28 20:26 | disposition home or self-care (01) ==
LOC: EC 17:19
DX: S80.02XA Contusion of left knee, initial encounter (principal); R55 Syncope and collapse; J44.9 Chronic obstructive pulmonary disease, unspecified; I10 Essential (primary) hypertension; M19.90 Unspecified osteoarthritis, unspecified site; I25.2 Old myocardial infarction; Z87.891 Personal history of nicotine dependence; Z87.19 Personal history of other diseases of the digestive system; Z86.010 Personal history of colon polyps; Z90.49 Acquired absence of other specified parts of digestive tract; Z90.710 Acquired absence of both cervix and uterus; Z98.890 Other specified postprocedural states; Z79.51 Long term (current) use of inhaled steroids; Z79.82 Long term (current) use of aspirin; Z79.899 Other long term (current) drug therapy; Z88.5 Allergy status to narcotic agent; Z88.8 Allergy status to other drugs, medicaments and biological substances; W18.39XA Other fall on same level, initial encounter; W22.8XXA Striking against or struck by other objects, initial encounter
CPT/HCPCS: 36415; 71046; 80053; 81003; 83735; 84484; 85025; 93005; 96360; 99284

== ENCOUNTER 2019-04-28 10:31 | Inpatient (IN) | payer MEDICARE, BC ==
[2019-04-28] MEDS ORDERED: IPRATROPIUM-ALBUTEROL 3 ML NEB INHALATION STA (11:22)
[2019-04-28] MEDS ORDERED: DEXAMETHASONE SOD PHOSPHATE 10 MG/ML 1 ML VIAL IV STA (11:24)
--- NOTE | 2019-04-28 11:41 | XR ---
EXAMINATION TYPE: XR chest 1V portable DATE OF EXAM: 04/28/2019 HISTORY: Shortness of breath. COMPARISON: 09/28/2018 TECHNIQUE: Single view of the chest is submitted. FINDINGS: Demonstrated are scattered senescent parenchymal change. Patchy right lower lobe infiltrate. Correlate for pneumonia. The heart is stable. Hilar and mediastinal structures are within normal limits. Degenerative changes are seen of the dorsal spine. IMPRESSION: 1. Patchy right lower lobe infiltrate. Correlate for pneumonia.
[2019-04-28 11:55] LABS: Albumin 3.4 g/dL (3.5-5.0); Calcium 9.1 mg/dL (8.4-10.2); Magnesium 2.3 mg/dL (1.6-2.3); Potassium 3.6 mmol/L (3.5-5.1); Total Bilirubin 0.5 mg/dL (0.2-1.3); Total Protein 6.4 g/dL (6.3-8.2)
[2019-04-28 12:10] LABS: Basophils # (A) 0.2 k/uL (0-0.2); Basophils % (A) 2 %; Eosinophils # (A) 0.1 k/uL (0-0.7); Eosinophils % (A) 1 %; HGB 13.7 gm/dL (11.4-16.0); Lymphocytes # (A) 1.3 k/uL (1.0-4.8); Lymphocytes % (A) 9 %; MCH 31.5 pg (25.0-35.0); MCHC 34.3 g/dL (31.0-37.0); Monocytes # (A) 0.9 k/uL (0-1.0); Monocytes % (A) 6 %; Neutrophils # (A) 11.3 k/uL (1.3-7.7); Neutrophils % (A) 80 %; Platelet Count 474 k/uL (150-450); RBC 4.35 m/uL (3.80-5.40); RDW 12.6 % (11.5-15.5); WBC 14.2 k/uL (3.8-10.6)
[2019-04-28 12:51] LABS: INR 0.9 (<1.2); Partial Thromboplastin Time 28.2 sec (22.0-30.0)
[2019-04-28] MEDS ORDERED: AZITHROMYCIN 500 MG in SODIUM CHLORIDE 0.9% 250 ML IVPB STA (12:52)
--- NOTE | 2019-04-28 13:04 | ED ---
General Adult HPI - General Chief complaint: Shortness of Breath Stated complaint: pneumonia Time Seen by Provider: 04/28/19 10:54 Source: patient, RN/MD Mode of arrival: wheelchair Limitations: no limitations - History of Present Illness Initial comments: Dictation was produced using FAZUA dictation software. please excuse any gramma tical, word or spelling errors. Chief Complaint: 83-year-old female sent in for hypoxia. History of Present Illness: 83-year-old female sent in by mobile tester for hypoxia. Patient has a history of asthma. She states she's been having cough productive of sputum, shortness of breath for the last 2-3 days. She went to go see her mobile tester in the office today. She is found to be hypoxic with a measurement measured in the 70s. She was instructed to come straight to the emergency department. Patient reports she has a history of asthma. She does report shortness of breath. She denies any pain complaints at this time. The ROS documented in this emergency department record has been reviewed and confirmed by me. Those systems with pertinent positive or negative responses have been documented in the HPI. All other systems are other negative and/or noncontributory. PHYSICAL EXAM: General Impression: Alert and oriented x3, not in acute distress HEENT: Normocephalic atraumatic, extra-ocular movements intact, pupils equal and reactive to light bilaterally, mucous membranes moist. Cardiovascular: Heart regular rate and rhythm, S1&S2 audible, no murmurs, rubs or gallops Chest: Diffuse wheezing worse in the right lower lobe Abdomen: Bowel sounds present, abdomen soft, non-tender, non-distended, no organomegaly Musculoskeletal: Pulses present and equal in all extremities, no peripheral edema Motor: no focal deficits noted Neurological: CN II-XII grossly intact, no focal motor or sensory deficits noted Skin: Intact with no visualized rashes Psych: Normal affect and mood ED course: 83-year-old female sent in by mobile tester for hypoxia. As upon arrival shows oxygen saturation of 80% on 3 L nasal cannula. Patient was given DuoNeb. Rest of vital signs within acceptable limits. Laboratory evaluation sees Itz dose of 14.2, rest of labs grossly unremarkable. Influenza is negative. Chest x-ray shows right lower lobe infiltrate. Clinical presentation consistent with community acquired pneumonia. Patient started on antibiotics. Patient given DuoNeb for mild wheezing. She is also treated for asthma exacerbation. Laboratory evaluation. Leukocytosis 14.2. Coag panel unremarkable. Metabolic panel is negative. Influenza is negative. Chest x-ray shows right lower lobe infiltrate. Discussed patient case with Dr. Kasper who is willing to accept patients care. Dr. Gilbert will be placed on consult. EKG interpretation: Ventricular rate 93, normal sinus rhythm,. Interval 126, Q 78, QTc 469. No VA prolongation, no QTC prolongation, no ST or T-wave changes noted. Overall, this EKG is unremarkable - Related Data Home Medications Medication Instructions Recorded Confirmed Aspirin 81 mg PO DAILY 10/30/14 08/29/18 Losartan Potassium 100 mg PO HS 10/30/14 08/29/18 Metoprolol Succinate [Toprol XL] 25 mg PO BID 10/30/14 08/29/18 amLODIPine BESYLATE [Norvasc] 10 mg PO DAILY 02/02/18 08/29/18 Fluticasone/Salmeterol [Advair 1 puff INHALATION RT-BID 06/23/18 08/29/18 500-50 Diskus] Tiotropium [place] [Spiriva] 1 cap INHALATION RT-DAILY 06/23/18 08/29/18 Benzonatate [Tessalon Perles] 200 mg PO TID BETWEEN MEALS PRN 08/07/18 08/29/18 Ubidecarenone [Co Q-10] 100 mg PO DAILY 08/07/18 08/29/18 Albuterol Nebulized (Conc) 2.5 mg INHALATION RT-QID PRN 08/24/18 08/29/18 [Ventolin Nebulized (Conc)] guaiFENesin [Mucinex] 1,200 mg PO Q12HR PRN 08/24/18 08/29/18 Previous Rx's Medication Instructions Recorded Ciprofloxacin HCl [Cipro] 500 mg PO Q12HR 14 Days #28 tablet 08/29/18 Allergies Allergy/AdvReac Type Severity Reaction Status Date / Time hydrocodone bitartrate AdvReac states Verified 04/28/19 10:38 [From Vicodin] "doesn't make me feel good" prednisone AdvReac Hallucinati Verified 04/28/19 10:38 ons Review of Systems ROS Statement: Those systems with pertinent positive or pertinent negative responses have been documented in the HPI. ROS Other: All systems not noted in ROS Statement are negative. 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 COLONOSCOPY-LARGE POLYP REMOVED, egd, Past Anesthesia/Blood Transfusion Reactions: No Reported Reaction Additional Past Anesthesia/Blood Transfusion Reaction / Comment(s): no hx blood transfusion Past Psychological History: No Psychological Hx Reported Smoking Status: Former smoker Past Alcohol Use History: Occasional Past Drug Use History: None Reported - Past Family History Sister(s) Family Medical History: Cancer Additional Family Medical History / Comment(s): #1 sister colon,# 2 sister lung Father Family Medical History: Cancer Additional Family Medical History / Comment(s): prostate Mother Family Medical History: Asthma Additional Family Medical History / Comment(s): heart problems General Exam Limitations: no limitations Course Vital Signs 04/28/19 04/28/19 04/28/19 10:38 11:23 11:24 Temperature 99 F Pulse Rate 98 92 90 Respiratory 18 20 22 Rate Blood Pressure 102/61 112/68 O2 Sat by Pulse 88 L 92 L Oximetry 04/28/19 04/28/19 04/28/19 11:32 12:00 13:18 Temperature Pulse Rate 93 96 85 Respiratory 20 16 Rate Blood Pressure 118/75 113/63 O2 Sat by Pulse 96 90 L Oximetry Medical Decision Making - Lab Data Result diagrams: 04/28/19 11:33 04/28/19 11:33 Lab Results 04/28/19 04/28/19 04/28/19 Range/Units 11:33 11:33 11:33 WBC 14.2 H (3.8-10.6) k/uL RBC 4.35 (3.80-5.40) m/uL Hgb 13.7 (11.4-16.0) gm/dL Hct 40.0 (34.0-46.0) % MCV 92.0 (80.0-100.0) fL MCH 31.5 (25.0-35.0) pg MCHC 34.3 (31.0-37.0) g/dL RDW 12.6 (11.5-15.5) % Plt Count 474 H (150-450) k/uL Neutrophils % 80 % Lymphocytes % 9 % Monocytes % 6 % Eosinophils % 1 % Basophils % 2 % Neutrophils # 11.3 H (1.3-7.7) k/uL Lymphocytes # 1.3 (1.0-4.8) k/uL Monocytes # 0.9 (0-1.0) k/uL Eosinophils # 0.1 (0-0.7) k/uL Basophils # 0.2 (0-0.2) k/uL PT (9.0-12.0) sec INR (<1.2) APTT (22.0-30.0) sec Sodium 139 (137-145) mmol/L Potassium 3.6 (3.5-5.1) mmol/L Chloride 102 (98-107) mmol/L Carbon Dioxide 28 (22-30) mmol/L Anion Gap 9 mmol/L BUN 17 (7-17) mg/dL Creatinine 1.06 H (0.52-1.04) mg/dL Est GFR (CKD-EPI)AfAm 57 (>60 ml/min/1.73 sqM) Est GFR (CKD-EPI)NonAf 50 (>60 ml/min/1.73 sqM) Glucose 151 H (74-99) mg/dL Plasma Lactic Acid Jace (0.7-2.0) mmol/L Calcium 9.1 (8.4-10.2) mg/dL Magnesium 2.3 (1.6-2.3) mg/dL Total Bilirubin 0.5 (0.2-1.3) mg/dL AST 41 H (14-36) U/L ALT 41 (9-52) U/L Alkaline Phosphatase 124 (38-126) U/L Troponin I (0.000-0.034) ng/mL NT-Pro-B Natriuret Pep 510 pg/mL Total Protein 6.4 (6.3-8.2) g/dL Albumin 3.4 L (3.5-5.0) g/dL Influenza Type A RNA (Not Detectd) Influenza Type B (PCR) (Not Detectd) 11/15/19 11/15/19 11/15/19 Range/Units 11:33 11:33 11:33 WBC (3.8-10.6) k/uL RBC (3.80-5.40) m/uL Hgb (11.4-16.0) gm/dL Hct (34.0-46.0) % MCV (80.0-100.0) fL MCH (25.0-35.0) pg MCHC (31.0-37.0) g/dL RDW (11.5-15.5) % Plt Count (150-450) k/uL Neutrophils % % Lymphocytes % % Monocytes % % Eosinophils % % Basophils % % Neutrophils # (1.3-7.7) k/uL Lymphocytes # (1.0-4.8) k/uL Monocytes # (0-1.0) k/uL Eosinophils # (0-0.7) k/uL Basophils # (0-0.2) k/uL PT 10.0 (9.0-12.0) sec INR 0.9 (<1.2) APTT 28.2 (22.0-30.0) sec Sodium (137-145) mmol/L Potassium (3.5-5.1) mmol/L Chloride (98-107) mmol/L Carbon Dioxide (22-30) mmol/L Anion Gap mmol/L BUN (7-17) mg/dL Creatinine (0.52-1.04) mg/dL Est GFR (CKD-EPI)AfAm (>60 ml/min/1.73 sqM) Est GFR (CKD-EPI)NonAf (>60 ml/min/1.73 sqM) Glucose (74-99) mg/dL Plasma Lactic Acid Jace 1.8 (0.7-2.0) mmol/L Calcium (8.4-10.2) mg/dL Magnesium (1.6-2.3) mg/dL Total Bilirubin (0.2-1.3) mg/dL AST (14-36) U/L ALT (9-52) U/L Alkaline Phosphatase (38-126) U/L Troponin I 0.025 (0.000-0.034) ng/mL NT-Pro-B Natriuret Pep pg/mL Total Protein (6.3-8.2) g/dL Albumin (3.5-5.0) g/dL Influenza Type A RNA (Not Detectd) Influenza Type B (PCR) (Not Detectd) 04/28/19 Range/Units 11:33 WBC (3.8-10.6) k/uL RBC (3.80-5.40) m/uL Hgb (11.4-16.0) gm/dL Hct (34.0-46.0) % MCV (80.0-100.0) fL MCH (25.0-35.0) pg MCHC (31.0-37.0) g/dL RDW (11.5-15.5) % Plt Count (150-450) k/uL Neutrophils % % Lymphocytes % % Monocytes % % Eosinophils % % Basophils % % Neutrophils # (1.3-7.7) k/uL Lymphocytes # (1.0-4.8) k/uL Monocytes # (0-1.0) k/uL Eosinophils # (0-0.7) k/uL Basophils # (0-0.2) k/uL PT (9.0-12.0) sec INR (<1.2) APTT (22.0-30.0) sec Sodium (137-145) mmol/L Potassium (3.5-5.1) mmol/L Chloride (98-107) mmol/L Carbon Dioxide (22-30) mmol/L Anion Gap mmol/L BUN (7-17) mg/dL Creatinine (0.52-1.04) mg/dL Est GFR (CKD-EPI)AfAm (>60 ml/min/1.73 sqM) Est GFR (CKD-EPI)NonAf (>60 ml/min/1.73 sqM) Glucose (74-99) mg/dL Plasma Lactic Acid Jace (0.7-2.0) mmol/L Calcium (8.4-10.2) mg/dL Magnesium (1.6-2.3) mg/dL Total Bilirubin (0.2-1.3) mg/dL AST (14-36) U/L ALT (9-52) U/L Alkaline Phosphatase (38-126) U/L Troponin I (0.000-0.034) ng/mL NT-Pro-B Natriuret Pep pg/mL Total Protein (6.3-8.2) g/dL Albumin (3.5-5.0) g/dL Influenza Type A RNA Not Detected (Not Detectd) Influenza Type B (PCR) Not Detected (Not Detectd) Disposition Clinical Impression: Pneumonia Disposition: ADMITTED IP TO THIS HOSP Condition: Fair Referrals: Sanju Ashley MD [Primary Care Provider] - 1-2 days Decision Time: 13:22
[2019-04-28] MEDS ORDERED: PNEUMONIA PROTOCOL UTILIZED 1 EACH MISC PO PRN (13:22)
[2019-04-28] MEDS ORDERED: IPRATROPIUM-ALBUTEROL 3 ML NEB INHALATION PRN (13:22)
[2019-04-28] MEDS ORDERED: INSULIN ASPART (NovoLOG) 100 UNIT/ML VIAL SQ PRN (14:24)
[2019-04-28] MEDS ORDERED: LORATADINE 10 MG TAB PO PRN (15:14)
--- NOTE | 2019-04-28 15:17 | P.HPIM ---
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 Gilbert apparently the patient presented earlier today to his office with chief complaint of increasing shortness of breath and productive cough over the last 5-6 days. The patient reported subjective fevers chills or night sweats, and had pleuritic chest discomfort associated only with her cough In the office the patient was noted to have oxygen saturations in the low 80's. Review of records indicates the patient presented with similar complaints in August of this year and had a BAL with lavage which grew Pseudomonas with sosa sensitivities In the ER the patient had a comprehensive workup chest x-ray showed a patchy right lower lobe infiltrate, admission labs were remarkable for a white count of 14.2 and a serum creatinine of 1.06, platelet count 474 influenza was negative for the patient was placed on supplemental oxygen at 5 L and given a loading dose of Solu-Medrol along with holding's dose of IV antibiotics with Rocephin and azithromycin and recommended for admission for community-acquired pneumonia Review of Systems Pertinent positives per HPI all other review of systems muscles are negative Past Medical History Past Medical History: COPD, Hypertension, Liver Disease Additional Past Medical History / Comment(s): Hx stomach ulcer,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 COLONOSCOPY-LARGE POLYP REMOVED, egd, Past Anesthesia/Blood Transfusion Reactions: No Reported Reaction Additional Past Anesthesia/Blood Transfusion Reaction / Comment(s): no hx blood transfusion Past Psychological History: No Psychological Hx Reported Smoking Status: Former smoker Past Alcohol Use History: Occasional Past Drug Use History: None Reported - Past Family History Sister(s) Family Medical History: Cancer Additional Family Medical History / Comment(s): #1 sister colon,# 2 sister lung Father Family Medical History: Cancer Additional Family Medical History / Comment(s): prostate Mother Family Medical History: Asthma Additional Family Medical History / Comment(s): heart problems Medications and Allergies Home Medications Medication Instructions Recorded Confirmed Type Losartan Potassium 100 mg PO HS 10/30/14 04/28/19 History amLODIPine BESYLATE [Norvasc] 10 mg PO DAILY 02/02/18 04/28/19 History Fluticasone/Salmeterol [Advair 1 puff INHALATION RT-BID 06/23/18 04/28/19 History 500-50 Diskus] Tiotropium [place] [Spiriva] 1 cap INHALATION RT-DAILY 06/23/18 04/28/19 History Ubidecarenone [Co Q-10] 100 mg PO DAILY 08/07/18 04/28/19 History Albuterol Nebulized [Ventolin 2.5 mg INHALATION RT-QID 04/28/19 04/28/19 History Nebulized] Albuterol Sulfate [Proventil Hfa] 1 puff INHALATION RT-BID PRN 04/28/19 04/28/19 History Cetirizine HCl [Zyrtec] 10 mg PO DAILY PRN 04/28/19 04/28/19 History Metoprolol Tartrate [Lopressor] 25 mg PO BID 04/28/19 04/28/19 History Zolpidem [Ambien] 5 mg PO HS PRN 04/28/19 04/28/19 History Allergies Allergy/AdvReac Type Severity Reaction Status Date / Time hydrocodone bitartrate AdvReac states Verified 04/28/19 13:34 [From Vicodin] "doesn't make me feel good" prednisone AdvReac Hallucinati Verified 04/28/19 13:34 ons Physical Exam Vitals: Vital Signs Temp Pulse Resp BP Pulse Ox 04/28/19 13:35 99.1 F 04/28/19 13:18 85 16 113/63 90 L 04/28/19 12:00 96 20 118/75 96 04/28/19 11:32 93 04/28/19 11:24 90 22 04/28/19 11:23 92 20 112/68 92 L 04/28/19 10:38 99 F 98 18 102/61 88 L Intake and Output 04/27/19 04/28/19 04/28/19 22:59 06:59 14:59 Other: Weight 78.925 kg Constitutional: No acute distress, conversant, pleasant, desats to mid 80s when coughing Eyes: Anicteric sclerae, moist conjunctiva, no lid-lag, PERRLA ENMT: NC/AT,Oropharynx clear, no erythema, exudates Neck:Supple, FROM, no masses, or JVD, No carotid bruits; No thyromegaly Lungs: Right lower lung field rhonchi, patient desats with coughing and unlabored on 5 L via nasal cannula, Cardiovascular: Heart regular in rate and rhythm, No murmurs, gallops, or rubs no peripheral edema Abdominal: Soft Nontender, nom distended, no guarding, no rebound or rigidity, Normoactive bowel sounds No hepatomegaly, No splenomegaly, No palpable mass No abdominal wall hernia noted Skin: Normal temperature, tone, texture, turgor, No induration No subcutaneous nodules, No rash, lesions, No ulcers Extremities:No digital cyanosis No clubbing, Pedal pulses intact and symmetrical Radial pulses intact and symmetrical Normal gait and station, No calf tenderness Psychiatric: Alert and oriented to person, place and time, Appropriate affect Intact judgement Neuro: Muscles Strength 5/5 in all 4 extremities, Sensation to light touch grossly present throughout, Cranial nerves II-XII grossly intact. No focal sensory deficits Results CBC & Chem 7: 04/28/19 11:33 04/28/19 11:33 Labs: Abnormal Lab Results - Last 24 Hours (Table) 04/28/19 04/28/19 Range/Units 11:33 11:33 WBC 14.2 H (3.8-10.6) k/uL Plt Count 474 H (150-450) k/uL Neutrophils # 11.3 H (1.3-7.7) k/uL Creatinine 1.06 H (0.52-1.04) mg/dL Glucose 151 H (74-99) mg/dL AST 41 H (14-36) U/L Albumin 3.4 L (3.5-5.0) g/dL Assessment and Plan Assessment: Assessment Acute respiratory failure with hypoxia Sepsis Community-acquired pneumonia Acute COPD exacerbation with asthma Essential hypertension Plan: The patient is admitted with anticipated greater than 2 midnight stay with acute respiratory failure with hypoxia secondary to sepsis attributable to right lower lobe community-acquired pneumonia and likely acute asthma exacerbation of COPD. Patient is continued on supplemental oxygen at 5 L with albuterol Atrovent DuoNeb bronchodilator breathing treatments scheduled and PRN, empiric IV antibiotics with azithromycin and Rocephin, and systemic steroids with Solu- Medrol. Blood cultures are ordered we'll order urinalysis with reflex cultures, urine Legionella, pro-calcitonin, influenza was negative. The patient is placed on correctional scale coverage as she is on steroids. CODE STATUS: Limited code DO NOT INTUBATE Discussed care with patient: Medical decision maker: Friend Mae Ardon Anticipated discharge 2-[address]: Home Prophylaxis: Protonix and SCDs and Lovenox
[2019-04-28] MEDS: SODIUM CHLORIDE 0.9% 1,000 ML IV SCH (15:54)
[2019-04-28 15:56] LABS: ABG Base Excess 3.4 mmol/L; ABG HCO3 27 mmol/L (21-25); ABG Oxygen Saturation 91.4 % (94-97); ABG PCO2 37 mmHg (35-45); ABG PH 7.47 (7.35-7.45); ABG TCO2 28 mmol/L (19-24); Allen Test Performed? Yes
[2019-04-28] MEDS ORDERED: INFLUENZA VACCINE (6 MOS+) 60 MCG/0.5 ML SYRINGE IM ONE (16:01)
[2019-04-28 16:06] LABS: ABG PO2 58 mmHg (83-108)
[2019-04-28] MEDS: IPRATROPIUM-ALBUTEROL 3 ML NEB INHALATION SCH ×2 (16:13→19:59)
[2019-04-28] MEDS: POLYMYXIN B-TRIMETHOPRIM SULF (10,000-1) OPHTH DROPS 10 ML BTL BOTH EYES SCH ×2 (16:35→18:25)
[2019-04-28 16:51] LABS: Glucose,Whole Blood 178 mg/dL (75-99)
[2019-04-28 18:25] LABS: Glucose,Whole Blood 201 mg/dL (75-99)
[2019-04-28] MEDS: methylPREDNISolone SOD SUCCI 125 MG/2 ML VIAL IV SCH (18:25)
[2019-04-28] MEDS: INSULIN ASPART (NovoLOG) 100 UNIT/ML VIAL SQ SCH ×2 (18:34→21:48)
[2019-04-28] MEDS: LOSARTAN 50 MG TAB PO SCH (20:34)
[2019-04-28] MEDS: guaiFENesin 600 MG TABLET.ER PO SCH (20:34)
[2019-04-28 20:58] LABS: Glucose,Whole Blood 207 mg/dL (75-99)
[2019-04-29] MEDS: POLYMYXIN B-TRIMETHOPRIM SULF (10,000-1) OPHTH DROPS 10 ML BTL BOTH EYES SCH ×4 (00:53→18:00)
[2019-04-29] MEDS: SODIUM CHLORIDE 0.9% 1,000 ML IV SCH ×3 (00:53→21:50)
[2019-04-29] MEDS: methylPREDNISolone SOD SUCCI 125 MG/2 ML VIAL IV SCH ×4 (00:53→18:01)
[2019-04-29] MEDS: BENZONATATE 100 MG CAP PO SCH ×2 (01:02→09:54)
[2019-04-29 05:51] LABS: Appearance,Urine Clear (Clear); Bilirubin,Urine Negative (Negative); Blood,Urine Negative (Negative); Color,Urine Yellow; Glucose,Urine (UA) Negative (Negative); Ketones,Urine Negative (Negative); Leukocyte Esterase,Urine Negative (Negative); Nitrite,Urine Negative (Negative); Protein,Urine Trace (Negative); Specific Gravity,Urine 1.017 (1.001-1.035); Urobilinogen,Urine <2.0 mg/dL (<2.0)
[2019-04-29 06:21] LABS: Glucose,Whole Blood 176 mg/dL (75-99)
[2019-04-29 06:34] LABS: Basophils # (A) 0.3 k/uL (0-0.2); Basophils % (A) 1 %; Eosinophils # (A) 0.1 k/uL (0-0.7); Eosinophils % (A) 0 %; HCT 36.8 % (34.0-46.0); HGB 12.4 gm/dL (11.4-16.0); Lymphocytes # (A) 1.7 k/uL (1.0-4.8); Lymphocytes % (A) 8 %; MCH 31.3 pg (25.0-35.0); MCHC 33.7 g/dL (31.0-37.0); MCV 92.8 fL (80.0-100.0); Mean Platelet Volume 6.4; Monocytes # (A) 0.6 k/uL (0-1.0); Monocytes % (A) 3 %; Neutrophils # (A) 17.8 k/uL (1.3-7.7); Neutrophils % (A) 86 %; Platelet Count 516 k/uL (150-450); RBC 3.96 m/uL (3.80-5.40); RDW 12.7 % (11.5-15.5); WBC 20.8 k/uL (3.8-10.6)
[2019-04-29 06:55] LABS: Calcium 8.7 mg/dL (8.4-10.2)
--- NOTE | 2019-04-29 07:01 | XR ---
EXAMINATION TYPE: XR chest 2V DATE OF EXAM: 04/29/2019 HISTORY: pneumonia. REFERENCE: Previous study dated 04/28/2019. FINDINGS: Lung volumes are prominent. There is improved aeration at the right lung base. Some residua l inflammatory change persists. The left lung is clear. The heart is not enlarged. IMPRESSION: IMPROVED AERATION, RIGHT LUNG BASE.
[2019-04-29] MEDS: INSULIN ASPART (NovoLOG) 100 UNIT/ML VIAL SQ SCH ×4 (07:06→21:48)
[2019-04-29] MEDS: IPRATROPIUM-ALBUTEROL 3 ML NEB INHALATION SCH ×4 (08:49→19:50)
[2019-04-29] MEDS: AZITHROMYCIN 500 MG in SODIUM CHLORIDE 0.9% 250 ML IVPB SCH (09:51)
[2019-04-29] MEDS: DOCUSATE 100 MG CAP PO PRN (09:51)
[2019-04-29] MEDS: guaiFENesin 600 MG TABLET.ER PO SCH ×2 (09:51→21:48)
[2019-04-29] MEDS: amLODIPine 10 MG TAB PO SCH (09:51)
[2019-04-29] MEDS: ENOXAPARIN 40 MG/0.4 ML SYRINGE SQ SCH (09:52)
--- NOTE | 2019-04-29 11:39 | P.PN ---
Subjective Progress Note Date: 04/29/19 This patient seen and examined at bedside, reports that she's feeling better, but reported that she coughed throughout the night having poor sleep. Denies fevers chills, continues on supplemental oxygen high flow at 7 L, reports that she's been up and ambulatory. Patient also reporting some constipation Objective - Vital Signs Vital signs: Vital Signs Temp 98.4 F 04/29/19 08:00 Pulse 100 04/29/19 09:00 Resp 20 04/29/19 08:00 BP 130/69 04/29/19 08:00 Pulse Ox 100 04/29/19 08:00 Intake & Output 04/28/19 04/29/19 04/29/19 18:59 06:59 18:59 Intake Total 240 240 Output Total 300 Balance -60 240 Weight 78.925 kg 78.9 kg Intake: Oral 240 240 Output: Urine 300 Other: Voiding Method Toilet # Voids 0 1 1 - Exam Constitutional: No acute distress, conversant, pleasant Eyes: Anicteric sclerae, moist conjunctiva, no lid-lag, PERRLA ENMT: NC/AT,Oropharynx clear, no erythema, exudates Neck:Supple, FROM, no masses, or JVD, No carotid bruits; No thyromegaly Lungs: Right lower rhonchi with expiratory wheezes, diminished in the bases unlabored on 9 L by nasal cannula Cardiovascular: Heart regular in rate and rhythm, No murmurs, gallops, or rubs no peripheral edema Abdominal: Soft Nontender, nom distended, no guarding, no rebound or rigidity, Normoactive bowel sounds No hepatomegaly, No splenomegaly, No palpable mass No abdominal wall hernia noted Skin: Normal temperature, tone, texture, turgor, No induration No subcutaneous nodules, No rash, lesions, No ulcers Extremities:No digital cyanosis No clubbing, Pedal pulses intact and symmetrical Radial pulses intact and symmetrical Normal gait and station, No calf tenderness Psychiatric: Alert and oriented to person, place and time, Appropriate affect In tact judgement Neuro: Muscles Strength 5/5 in all 4 extremities, Sensation to light touch grossly present throughout, Cranial nerves II-XII grossly intact. No focal sensory deficits - Labs CBC & Chem 7: 04/29/19 06:09 04/29/19 06:09 Labs: Abnormal Lab Results - Last 24 Hours (Table) 11/15/19 11/15/19 11/15/19 Range/Units 11:33 11:33 15:01 WBC 14.2 H (3.8-10.6) k/uL Plt Count 474 H (150-450) k/uL Neutrophils # 11.3 H (1.3-7.7) k/uL Basophils # (0-0.2) k/uL ABG pH (7.35-7.45) ABG pO2 (83-108) mmHg ABG HCO3 (21-25) mmol/L ABG Total CO2 (19-24) mmol/L ABG O2 Saturation (94-97) % Creatinine 1.06 H (0.52-1.04) mg/dL Glucose 151 H (74-99) mg/dL POC Glucose (mg/dL) (75-99) mg/dL AST 41 H (14-36) U/L Albumin 3.4 L (3.5-5.0) g/dL Procalcitonin 0.35 H (0.02-0.09) ng/mL Urine Protein (Negative) 04/28/19 04/28/19 04/28/19 Range/Units 15:12 16:50 18:24 WBC (3.8-10.6) k/uL Plt Count (150-450) k/uL Neutrophils # (1.3-7.7) k/uL Basophils # (0-0.2) k/uL ABG pH 7.47 H (7.35-7.45) ABG pO2 58 L* (83-108) mmHg ABG HCO3 27 H (21-25) mmol/L ABG Total CO2 28 H (19-24) mmol/L ABG O2 Saturation 91.4 L (94-97) % Creatinine (0.52-1.04) mg/dL Glucose (74-99) mg/dL POC Glucose (mg/dL) 178 H 201 H (75-99) mg/dL AST (14-36) U/L Albumin (3.5-5.0) g/dL Procalcitonin (0.02-0.09) ng/mL Urine Protein (Negative) 04/28/19 04/29/19 04/29/19 Range/Units 20:56 05:30 06:09 WBC 20.8 H (3.8-10.6) k/uL Plt Count 516 H (150-450) k/uL Neutrophils # 17.8 H (1.3-7.7) k/uL Basophils # 0.3 H (0-0.2) k/uL ABG pH (7.35-7.45) ABG pO2 (83-108) mmHg ABG HCO3 (21-25) mmol/L ABG Total CO2 (19-24) mmol/L ABG O2 Saturation (94-97) % Creatinine (0.52-1.04) mg/dL Glucose (74-99) mg/dL POC Glucose (mg/dL) 207 H (75-99) mg/dL AST (14-36) U/L Albumin (3.5-5.0) g/dL Procalcitonin (0.02-0.09) ng/mL Urine Protein Trace H (Negative) 04/29/19 04/29/19 Range/Units 06:09 06:20 WBC (3.8-10.6) k/uL Plt Count (150-450) k/uL Neutrophils # (1.3-7.7) k/uL Basophils # (0-0.2) k/uL ABG pH (7.35-7.45) ABG pO2 (83-108) mmHg ABG HCO3 (21-25) mmol/L ABG Total CO2 (19-24) mmol/L ABG O2 Saturation (94-97) % Creatinine (0.52-1.04) mg/dL Glucose 161 H (74-99) mg/dL POC Glucose (mg/dL) 176 H (75-99) mg/dL AST (14-36) U/L Albumin (3.5-5.0) g/dL Procalcitonin (0.02-0.09) ng/mL Urine Protein (Negative) Assessment and Plan Assessment: Acute respiratory failure with hypoxia * Secondary to a community-acquired pneumonia in the setting * of acute COPD exacerbation * Continue supplemental oxygen currently on centimeters via nasal cannula * Chest x-ray indicating improved aeration of the right lung base * Pulmonary consulted recommendations pending Sepsis * Secondary to community-acquired pneumonia * White count trending up to 20 patient afebrile * Continue empiric IV antibiotics with Rocephin and azithromycin, blood cultures pending, urinalysis negative Community-acquired pneumonia * Treatment as above Acute COPD exacerbation with asthma * continue systemic steroids with IV Solu-Medrol * Continue scheduled Atrovent DuoNeb breathing treatments * Robitussin-AC added for ongoing nocturnal paroxysms of cough Essential hypertension * Blood pressure stable and controlled Constipation * Colace added disposition * Continue current management at this time we'll continue to follow the patient
[2019-04-29 11:52] LABS: Glucose,Whole Blood 155 mg/dL (75-99)
--- NOTE | 2019-04-29 12:34 | P.CNPUL ---
History of Present Illness Consult date: 04/29/19 Requesting physician: Andres Caicedo Reason for consult: dyspnea, abnormal CXR/CT Chief complaint: Shortness of breath, cough, congestion History of present illness: This is a very pleasant 83-year-old female patient who follows with Dr. Ashley as her primary care physician. She has history of hypertension. She also has a history of chronic obstructive pulmonary disease, upper lobe predominance and follows with Dr. Gilbert in our office for the same. FEV1 is 1.3 L which is 72% of predicted. She is maintained on Advair and Spiriva and albuterol. She is also had pseudomonas aeruginosa on bronchial washings in August 2018. She presented there yesterday with worsening shortness of breath, cough and congestion. She was found to have a patchy right lower lobe infiltrate/pneumonia. She did have hypoxemia and is currently on 8 L high flow nasal cannula. She is seen today in consultation on the selective care unit. She is currently resting comfortably in bed. Awake and alert in no acute distress. She does have a loose nonproductive cough. Currently afebrile. Hemodynamically stable. White count 20.8. Hemoglobin 12.4. Creatinine 0.73. She has been initiated on DuoNeb inhalations, IV site Medrol, antibiotics in the form of ceftriaxone and azithromycin. Lovenox for DVT prophylaxis. Review of Systems REVIEW OF SYSTEMS: CONSTITUTIONAL: Denies any recent significant weight loss or weight gain. EYES: Denies change in vision. EARS, NOSE, MOUTH, THROAT: Denies headaches, denies sore throat. CARDIOVASCULAR: Denies chest pain, palpitations or syncopal episodes. RESPIRATORY: Positive for shortness of breath, cough, congestion no hemoptysis. GASTROINTESTINAL: Denies change in appetite, denies abdominal pain GENITOURINARY: Denies hematuria, denies infections. MUSKULOSKELETAL: Denies pain, denies swelling. INTEGUMENTARY: Denies rash, denies eczema. NEUROLOGICAL: Denies recent memory loss, no recent seizure activity. PSYCHIATRIC: Denies anxiety, denies depression. HEMATOLOGIC/LYMPHATIC: Denies anemia, denies enlarged lymph nodes. 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 COLONOSCOPY-LARGE POLYP REMOVED, egd, Past Anesthesia/Blood Transfusion Reactions: No Reported Reaction Additional Past Anesthesia/Blood Transfusion Reaction / Comment(s): no hx blood transfusion Past Psychological History: No Psychological Hx Reported Smoking Status: Former smoker Past Alcohol Use History: Occasional Past Drug Use History: None Reported - Past Family History Sister(s) Family Medical History: Cancer Additional Family Medical History / Comment(s): #1 sister colon,# 2 sister lung Father Family Medical History: Cancer Additional Family Medical History / Comment(s): prostate Mother Family Medical History: Asthma Additional Family Medical History / Comment(s): heart problems Medications and Allergies Home Medications Medication Instructions Recorded Confirmed Type Losartan Potassium 100 mg PO HS 10/30/14 04/28/19 History amLODIPine BESYLATE [Norvasc] 10 mg PO DAILY 02/02/18 04/28/19 History Fluticasone/Salmeterol [Advair 1 puff INHALATION RT-BID 06/23/18 04/28/19 H istory 500-50 Diskus] Tiotropium Custer [Spiriva] 1 cap INHALATION RT-DAILY 06/23/18 04/28/19 History Ubidecarenone [Co Q-10] 100 mg PO DAILY 08/07/18 04/28/19 History Albuterol Nebulized [Ventolin 2.5 mg INHALATION RT-QID 04/28/19 04/28/19 History Nebulized] Albuterol Sulfate [Proventil Hfa] 1 puff INHALATION RT-BID PRN 04/28/19 04/28/19 History Cetirizine HCl [Zyrtec] 10 mg PO DAILY PRN 04/28/19 04/28/19 History Metoprolol Tartrate [Lopressor] 25 mg PO BID 04/28/19 04/28/19 History Zolpidem [Ambien] 5 mg PO HS PRN 04/28/19 04/28/19 History Allergies Allergy/AdvReac Type Severity Reaction Status Date / Time hydrocodone bitartrate AdvReac states Verified 04/28/19 13:34 [From Vicodin] "doesn't make me feel good" prednisone AdvReac Hallucinati Verified 04/28/19 13:34 ons Physical Exam Vitals: Vital Signs Temp Pulse Pulse Resp BP BP Pulse Ox 04/29/19 11:46 97.7 F 103 H 18 102/77 99 04/29/19 11:40 96 04/29/19 11:29 96 04/29/19 09:00 100 04/29/19 08:49 98 04/29/19 08:00 98.4 F 105 H 20 130/69 100 04/29/19 04:00 98.2 F 101 H 22 132/58 94 L 04/29/19 00:00 97.8 F 102 H 18 121/68 95 04/28/19 20:11 90 04/28/19 20:00 98.9 F 88 106 H 18 126/60 94 L 04/28/19 16:33 90 04/28/19 16:14 92 04/28/19 16:00 98 22 129/70 90 L 04/28/19 13:35 99.1 F 04/28/19 13:18 85 16 113/63 90 L Intake and Output 04/28/19 04/29/19 04/29/19 22:59 06:59 14:59 Intake Total 240 240 Balance 240 240 Intake: Oral 240 240 Other: Voiding Method Toilet # Voids 1 1 Weight 78.9 kg GENERAL EXAM: Alert, pleasant 83-year-old female patient, on 8 L high flow nasal cannula comfortable in no apparent distress. HEAD: Normocephalic. EYES: Normal reaction of pupils, equal size. NOSE: Clear with pink turbinates. THROAT: No erythema or exudates. NECK: No masses, no JVD. CHEST: No chest wall deformity. LUNGS: Equal air entry with crackles in the right base, bilateral end expiratory wheeze, diminished CVS: S1 and S2 normal with no audible murmur, regular rhythm. ABDOMEN: No hepatosplenomegaly, normal bowel sounds, no guarding or rigidity. SPINE: No scoliosis or deformity SKIN: No rashes CENTRAL NERVOUS SYSTEM: No focal deficits, tone is normal in all 4 extremities. EXTREMITIES: There is no peripheral edema. No clubbing, no cyanosis. Peripheral pulses are intact. Results - Laboratory Findings CBC and BMP: 04/29/19 06:09 04/29/19 06:09 ABG ABG pH 7.47 (7.35-7.45) H 04/28/19 15:12 ABG pCO2 37 mmHg (35-45) 04/28/19 15:12 ABG pO2 58 mmHg (83-108) L* 04/28/19 15:12 ABG O2 Saturation 91.4 % (94-97) L 04/28/19 15:12 PT/INR, D-dimer PT 10.0 sec (9.0-12.0) 04/28/19 11:33 INR 0.9 (<1.2) 04/28/19 11:33 Abnormal lab findings: Abnormal Labs 04/28/19 04/28/19 04/28/19 11:33 11:33 15:01 WBC 14.2 H Plt Count 474 H Neutrophils # 11.3 H Basophils # ABG pH ABG pO2 ABG HCO3 ABG Total CO2 ABG O2 Saturation Creatinine 1.06 H Glucose 151 H POC Glucose (mg/dL) AST 41 H Albumin 3.4 L Procalcitonin 0.35 H Urine Protein 04/28/19 04/28/19 04/28/19 15:12 16:50 18:24 WBC Plt Count Neutrophils # Basophils # ABG pH 7.47 H ABG pO2 58 L* ABG HCO3 27 H ABG Total CO2 28 H ABG O2 Saturation 91.4 L Creatinine Glucose POC Glucose (mg/dL) 178 H 201 H AST Albumin Procalcitonin Urine Protein 04/28/19 04/29/19 04/29/19 20:56 05:30 06:09 WBC 20.8 H Plt Count 516 H Neutrophils # 17.8 H Basophils # 0.3 H ABG pH ABG pO2 ABG HCO3 ABG Total CO2 ABG O2 Saturation Creatinine Glucose POC Glucose (mg/dL) 207 H AST Albumin Procalcitonin Urine Protein Trace H 04/29/19 04/29/19 04/29/19 06:09 06:20 11:44 WBC Plt Count Neutrophils # Basophils # ABG pH ABG pO2 ABG HCO3 ABG Total CO2 ABG O2 Saturation Creatinine Glucose 161 H POC Glucose (mg/dL) 176 H 155 H AST Albumin Procalcitonin Urine Protein - Diagnostic Findings Chest x-ray: image reviewed Assessment and Plan Assessment: 1 acute hypoxic respiratory failure secondary to an acute right lower lobe pneumonia, community-acquired. 2 acute exacerbation of chronic obstructive pulmonary disease secondary to above. 3 leukocytosis secondary to above. 4 history of pseudomonas aeruginosa in bronchial washings in August 2018. 5 hypertension Plan: The patient was seen and evaluated by Dr. Carney. Chest x-rays and labs reviewed. We'll continue with DuoNeb inhalations. Add Pulmicort and Perforomist inhalations. Continue IV Solu-Medrol. Continue antibiotics in the form of ceftriaxone and azithromycin. Titrate down the FiO2 as tolerated. We'll continue to follow and make further recommendations based on her clinical status. I, the cosigning physician, performed a history & physical examination of the patient. Lungs sounds with crackles in the right base, bilateral end expiratory wheeze, diminished. Maintaining good O2 saturations in the 90s on 8 L high flow nasal cannula. I discussed the assessment and plan of care with my nurse practitioner, Teresa Alejandro. I attest to the above note as dictated by her. Time with Patient: Greater than 30
[2019-04-29 16:53] LABS: Glucose,Whole Blood 206 mg/dL (75-99)
[2019-04-29] MEDS: BUDESONIDE 1 MG/2 ML NEBU INHALATION SCH (19:48)
[2019-04-29] MEDS: FORMOTEROL FUMARATE 20 MCG/2 ML NEBU INHALATION SCH (19:48)
[2019-04-29 20:59] LABS: Glucose,Whole Blood 172 mg/dL (75-99)
[2019-04-29] MEDS: LOSARTAN 50 MG TAB PO SCH (21:48)
[2019-04-30] MEDS: methylPREDNISolone SOD SUCCI 125 MG/2 ML VIAL IV SCH ×5 (01:28→23:47)
[2019-04-30] MEDS: POLYMYXIN B-TRIMETHOPRIM SULF (10,000-1) OPHTH DROPS 10 ML BTL BOTH EYES SCH ×5 (01:28→23:49)
[2019-04-30 05:56] LABS: Basophils # (A) 0.4 k/uL (0-0.2); Basophils % (A) 1 %; Eosinophils % (A) 0 %; HCT 37.7 % (34.0-46.0); HGB 12.3 gm/dL (11.4-16.0); Lymphocytes # (A) 1.3 k/uL (1.0-4.8); Lymphocytes % (A) 5 %; MCHC 32.7 g/dL (31.0-37.0); MCV 94.8 fL (80.0-100.0); Mean Platelet Volume 6.4; Monocytes % (A) 3 %; Neutrophils # (A) 24.9 k/uL (1.3-7.7); Neutrophils % (A) 89 %; Platelet Count 635 k/uL (150-450); RBC 3.98 m/uL (3.80-5.40); RDW 12.8 % (11.5-15.5)
[2019-04-30 06:11] LABS: African American GFR (CKD) >90 (>60 ml/min/1.73 sqM); Anion Gap 8 mmol/L; Blood Urea Nitrogen 21 mg/dL (7-17); Calcium 9.2 mg/dL (8.4-10.2); Carbon Dioxide 24 mmol/L (22-30); Chloride 109 mmol/L (98-107); Glucose 150 mg/dL (74-99); Non-African American GFR(CKD) 82 (>60 ml/min/1.73 sqM); Sodium 141 mmol/L (137-145)
[2019-04-30 06:53] LABS: Glucose,Whole Blood 132 mg/dL (75-99)
[2019-04-30] MEDS: INSULIN ASPART (NovoLOG) 100 UNIT/ML VIAL SQ SCH ×4 (06:53→21:00)
[2019-04-30] MEDS: SODIUM CHLORIDE 0.9% 1,000 ML IV SCH ×2 (06:58→16:57)
[2019-04-30] MEDS: BUDESONIDE 1 MG/2 ML NEBU INHALATION SCH ×2 (08:52→20:36)
[2019-04-30] MEDS: IPRATROPIUM-ALBUTEROL 3 ML NEB INHALATION SCH ×4 (08:52→20:36)
[2019-04-30] MEDS: FORMOTEROL FUMARATE 20 MCG/2 ML NEBU INHALATION SCH ×2 (08:52→20:36)
--- NOTE | 2019-04-30 09:41 | P.PN ---
Subjective Progress Note Date: 04/30/19 This patient seen and examined at bedside, reports that she's feeling better, but reported that she continues to cough throughout the night and had poor sleep. Denies fevers chills, continues on supplemental oxygen high flow at 7 L, reports that she's been up and ambulatory. Patient reported to have bowel movement overnight. Objective - Vital Signs Vital signs: Vital Signs Temp 96.6 F L 04/30/19 08:00 Pulse 100 04/30/19 09:14 Resp 20 04/30/19 08:00 BP 133/64 04/30/19 08:00 Pulse Ox 98 04/30/19 08:52 Intake & Output 04/29/19 04/30/19 04/30/19 18:59 06:59 18:59 Intake Total 2350 Balance 2350 Weight 78.9 kg 81.1 kg Intake: Intake, IV Titration 1150 Amount Azithromycin 500 mg In 250 Sodium Chloride 0.9% 250 ml @ 250 mls/hr IVPB DAILY [facility] Rx#:[id number] Sodium Chloride 0.9% 1, 800 000 ml @ 100 mls/hr IV . Q10H [facility] Rx#:[id number] cefTRIAXone 1 gm In 100 Sodium Chloride 0.9% 50 ml @ 100 mls/hr IVPB Q24HR [facility] Rx#:[id number] Oral 1200 Other: Voiding Method Toilet Toilet # Voids 1 2 - Exam Constitutional: No acute distress, conversant, pleasant Eyes: Anicteric sclerae, moist conjunctiva, no lid-lag, PERRLA ENMT: NC/AT,Oropharynx clear, no erythema, exudates Neck:Supple, FROM, no masses, or JVD, No carotid bruits; No thyromegaly Lungs: Right lower rhonchi with expiratory wheezes, diminished in the bases unlabored on 9 L by nasal cannula Cardiovascular: Heart regular in rate and rhythm, No murmurs, gallops, or rubs no peripheral edema Abdominal: Soft Nontender, nom distended, no guarding, no rebound or rigidity, Normoactive bowel sounds No hepatomegaly, No splenomegaly, No palpable mass No abdominal wall hernia noted Skin: Normal temperature, tone, texture, turgor, No induration No subcutaneous nodules, No rash, lesions, No ulcers Extremities:No digital cyanosis No clubbing, Pedal pulses intact and symmetr ical Radial pulses intact and symmetrical Normal gait and station, No calf tenderness Psychiatric: Alert and oriented to person, place and time, Appropriate affect Intact judgement Neuro: Muscles Strength 5/5 in all 4 extremities, Sensation to light touch grossly present throughout, Cranial nerves II-XII grossly intact. No focal sensory deficits - Labs CBC & Chem 7: 04/30/19 05:21 04/30/19 05:21 Labs: Abnormal Lab Results - Last 24 Hours (Table) 04/29/19 04/29/19 04/29/19 Range/Units 11:44 16:48 20:58 WBC (3.8-10.6) k/uL Plt Count (150-450) k/uL Neutrophils # (1.3-7.7) k/uL Basophils # (0-0.2) k/uL Chloride (98-107) mmol/L BUN (7-17) mg/dL Glucose (74-99) mg/dL POC Glucose (mg/dL) 155 H 206 H 172 H (75-99) mg/dL 04/30/19 04/30/19 04/30/19 Range/Units 05:21 05:21 06:51 WBC 28.0 H (3.8-10.6) k/uL Plt Count 635 H (150-450) k/uL Neutrophils # 24.9 H (1.3-7.7) k/uL Basophils # 0.4 H (0-0.2) k/uL Chloride 109 H (98-107) mmol/L BUN 21 H (7-17) mg/dL Glucose 150 H (74-99) mg/dL POC Glucose (mg/dL) 132 H (75-99) mg/dL Microbiology - Last 24 Hours (Table) 04/28/19 16:57 Blood Culture - Preliminary Blood No Growth after 24 hours 04/28/19 11:33 Blood Culture - Preliminary Blood No Growth after 24 hours Assessment and Plan Assessment: Acute respiratory failure with hypoxia * Secondary to a community-acquired pneumonia in the setting of acute COPD exacerbation * Continue supplemental oxygen currently on 7 L via nasal cannula, nursing instructed to wean as tolerated * Chest x-ray indicating improved aeration of the right lung base * Pulmonary consulted recommendations pending Sepsis * Secondary to community-acquired pneumonia * White count trending up to 28 patient afebrile * Continue empiric IV antibiotics with Rocephin and azithromycin, blood cultures pending, urinalysis negative Community-acquired pneumonia * Treatment as above Acute COPD exacerbation with asthma * continue systemic steroids with IV Solu-Medrol, Pulmicort and Perforomist added * Continue scheduled Atrovent DuoNeb breathing treatments * Robitussin-AC added for ongoing nocturnal paroxysms of cough Essential hypertension * Blood pressure stable and controlled Constipation * Patient had bowel movement overnight continue Colace as needed disposition * Continue current management at this time we'll continue to follow the patient * Discussed with nurse patient needs her Robitussin with codeine at night to help her cough and to help her sleep
[2019-04-30] MEDS: AZITHROMYCIN 500 MG in SODIUM CHLORIDE 0.9% 250 ML IVPB SCH (10:07)
[2019-04-30] MEDS: guaiFENesin 600 MG TABLET.ER PO SCH ×2 (10:08→21:00)
[2019-04-30] MEDS: ENOXAPARIN 40 MG/0.4 ML SYRINGE SQ SCH (10:08)
[2019-04-30] MEDS: amLODIPine 10 MG TAB PO SCH (10:08)
--- NOTE | 2019-04-30 11:35 | P.PN ---
Subjective Progress Note Date: 04/30/19 Principal diagnosis: acute hypoxic respiratory failure secondary to acute right lower lobe pneumonia and acute exacerbation of COPD. This is a very pleasant 83-year-old female patient who follows with Dr. Ashley as her primary care physician. She has history of hypertension. She also has a history of chronic obstructive pulmonary disease, upper lobe predominance and follows with Dr. Gilbert in our office for the same. FEV1 is 1.3 L which is 72% of predicted. She is maintained on Advair and Spiriva and albuterol. She is also had pseudomonas aeruginosa on bronchial washings in August 2018. She presented there yesterday with worsening shortness of breath, cough and kimberlee estion. She was found to have a patchy right lower lobe infiltrate/pneumonia. She did have hypoxemia and is currently on 8 L high flow nasal cannula. She is seen today in consultation on the selective care unit. She is currently resting comfortably in bed. Awake and alert in no acute distress. She does have a loose nonproductive cough. Currently afebrile. Hemodynamically stable. White count 20.8. Hemoglobin 12.4. Creatinine 0.73. She has been initiated on DuoNeb inhalations, IV site Medrol, antibiotics in the form of ceftriaxone and azithromycin. Lovenox for DVT prophylaxis. Patient was reevaluated today on 04/30/2019, feeling better, breathing easier, less cough and less wheezing less shortness of breath.remains on high flow nasal cannula however her O2 saturations 98%, and overall the patient is feeling great.however she has leukocytosis with WBC of 28 hemoglobin is 12.3 electrolytes are normal renal profile is normal. Objective - Vital Signs Vital signs: Vital Signs Temp 96.6 F L 04/30/19 08:00 Pulse 100 04/30/19 09:14 Resp 20 04/30/19 08:00 BP 133/64 04/30/19 08:00 Pulse Ox 98 04/30/19 08:52 Intake & Output 04/29/19 04/30/19 04/30/19 18:59 06:59 18:59 Intake Total 2350 360 Balance 2350 360 Weight 78.9 kg 81.1 kg Intake: Intake, IV Titration 1150 Amount Azithromycin 500 mg In 250 Sodium Chloride 0.9% 250 ml @ 250 mls/hr IVPB DAILY [facility] Rx#:[id number] Sodium Chloride 0.9% 1, 800 000 ml @ 100 mls/hr IV . Q10H [facility] Rx#:[id number] cefTRIAXone 1 gm In 100 Sodium Chloride 0.9% 50 ml @ 100 mls/hr IVPB Q24HR [facility] Rx#:[id number] Oral 1200 360 Other: Voiding Method Toilet Toilet Toilet # Voids 1 2 - Exam GENERAL EXAM:revealed 83-year-old female, pleasant, in no distress. Pleased that she is feeling better today. HEENT: PERRLA, EOMI, no active. Moist mucous membranes. No evidence of thrush. Head: Atraumatic, normocephalic. CHEST: No chest wall deformity. LUNGS: minimal fine crackles at the bases especially at the right base, no rhonchi and no wheezes. CVS: S1 and S2 normal with no audible murmur, regular rhythm. ABDOMEN: soft nontender no megaly no rebound no guarding. SPINE: No scoliosis or deformity SKIN: No rashes CENTRAL NERVOUS SYSTEM:alert oriented 3 focal neurologic deficits. EXTREMITIES: no clubbing edema or cyanosis, good pulses bilaterally. - Labs CBC & Chem 7: 04/30/19 05:21 04/30/19 05:21 Labs: Abnormal Lab Results - Last 24 Hours (Table) 04/29/19 04/29/19 04/29/19 Range/Units 11:44 16:48 20:58 WBC (3.8-10.6) k/uL Plt Count (150-450) k/uL Neutrophils # (1.3-7.7) k/uL Basophils # (0-0.2) k/uL Chloride (98-107) mmol/L BUN (7-17) mg/dL Glucose (74-99) mg/dL POC Glucose (mg/dL) 155 H 206 H 172 H (75-99) mg/dL 04/30/19 04/30/19 04/30/19 Range/Units 05:21 05:21 06:51 WBC 28.0 H (3.8-10.6) k/uL Plt Count 635 H (150-450) k/uL Neutrophils # 24.9 H (1.3-7.7) k/uL Basophils # 0.4 H (0-0.2) k/uL Chloride 109 H (98-107) mmol/L BUN 21 H (7-17) mg/dL Glucose 150 H (74-99) mg/dL POC Glucose (mg/dL) 132 H (75-99) mg/dL Microbiology - Last 24 Hours (Table) 04/28/19 16:57 Blood Culture - Preliminary Blood No Growth after 24 hours 04/28/19 11:33 Blood Culture - Preliminary Blood No Growth after 24 hours Assessment and Plan Assessment: 1 acute hypoxic respiratory failure secondary to an acute right lower lobe pneumonia, community-acquired. 2 acute exacerbation of chronic obstructive pulmonary disease secondary to above. 3 leukocytosis secondary to above. 4 history of pseudomonas aeruginosa in bronchial washings in August 2018. 5 hypertension Plan:continue antibiotics, bronchodilators, steroids, continue Pulmicort and Perforomist, recommend repeat chest x-ray in a.m., and titrate the FiO2 down as tolerated keep O2 saturation above 92%. We'll continue to follow. Time with Patient: Less than 30
[2019-04-30 12:15] LABS: Glucose,Whole Blood 185 mg/dL (75-99)
[2019-04-30] MEDS: guaiFENesin-Coden 100-10MG/5ML 10 ML CUP PO PRN ×2 (13:59→21:00)
[2019-04-30] MEDS: DOCUSATE 100 MG CAP PO PRN (16:55)
[2019-04-30 17:09] LABS: Glucose,Whole Blood 154 mg/dL (75-99)
[2019-04-30 20:37] LABS: Glucose,Whole Blood 170 mg/dL (75-99)
[2019-04-30] MEDS: LOSARTAN 50 MG TAB PO SCH (21:00)
[2019-05-01] MEDS: guaiFENesin-Coden 100-10MG/5ML 10 ML CUP PO PRN ×3 (02:01→20:52)
[2019-05-01] MEDS: SODIUM CHLORIDE 0.9% 1,000 ML IV SCH ×2 (05:39→18:04)
[2019-05-01] MEDS: methylPREDNISolone SOD SUCCI 125 MG/2 ML VIAL IV SCH ×4 (05:42→23:41)
[2019-05-01] MEDS: POLYMYXIN B-TRIMETHOPRIM SULF (10,000-1) OPHTH DROPS 10 ML BTL BOTH EYES SCH ×3 (05:43→18:04)
[2019-05-01 06:07] LABS: Glucose,Whole Blood 116 mg/dL (75-99)
[2019-05-01 06:29] LABS: Basophils # (A) 0.2 k/uL (0-0.2); Basophils % (A) 1 %; Eosinophils % (A) 0 %; HCT 36.7 % (34.0-46.0); HGB 12.4 gm/dL (11.4-16.0); Lymphocytes # (A) 1.2 k/uL (1.0-4.8); Lymphocytes % (A) 4 %; MCH 31.3 pg (25.0-35.0); MCHC 33.7 g/dL (31.0-37.0); Monocytes # (A) 1.4 k/uL (0-1.0); Monocytes % (A) 5 %; Neutrophils # (A) 25.8 k/uL (1.3-7.7); Neutrophils % (A) 89 %; Platelet Count 714 k/uL (150-450); RBC 3.95 m/uL (3.80-5.40); RDW 12.9 % (11.5-15.5)
[2019-05-01 06:39] LABS: African American GFR (CKD) >90 (>60 ml/min/1.73 sqM); Anion Gap 7 mmol/L; Blood Urea Nitrogen 21 mg/dL (7-17); Calcium 9.3 mg/dL (8.4-10.2); Carbon Dioxide 26 mmol/L (22-30); Chloride 106 mmol/L (98-107); Glucose 114 mg/dL (74-99); Non-African American GFR(CKD) 83 (>60 ml/min/1.73 sqM); Potassium 4.2 mmol/L (3.5-5.1); Sodium 139 mmol/L (137-145)
[2019-05-01] MEDS: INSULIN ASPART (NovoLOG) 100 UNIT/ML VIAL SQ SCH ×4 (06:40→21:02)
[2019-05-01] MEDS: FORMOTEROL FUMARATE 20 MCG/2 ML NEBU INHALATION SCH ×2 (08:03→19:37)
[2019-05-01] MEDS: BUDESONIDE 1 MG/2 ML NEBU INHALATION SCH ×2 (08:03→19:37)
[2019-05-01] MEDS: IPRATROPIUM-ALBUTEROL 3 ML NEB INHALATION SCH ×4 (08:03→19:37)
--- NOTE | 2019-05-01 08:31 | XR ---
EXAMINATION TYPE: XR chest 2V DATE OF EXAM: 05/01/2019 COMPARISON: 04/29/2019 HISTORY: Pneumonia. Follow-up exam. TECHNIQUE: Frontal and lateral views of the chest are obtained. FINDINGS: Improved aeration of the right infrahilar region with similar strand-like right midlung op acity. Chronic interstitial prominence is again noted. Emphysematous changes of the lungs with biapic al lucency. Diffuse osseous demineralization. History of scoliosis of the spine and mild degenerative change. Stable cardiomediastinal silhouette. IMPRESSION: Improved aeration of the right infrahilar region. Minimal residual strand-like opacity o f the right midlung with background chronic interstitial prominence and emphysematous change.
[2019-05-01] MEDS: guaiFENesin 600 MG TABLET.ER PO SCH ×2 (08:50→20:45)
[2019-05-01] MEDS: ENOXAPARIN 40 MG/0.4 ML SYRINGE SQ SCH (08:50)
[2019-05-01] MEDS: amLODIPine 10 MG TAB PO SCH (08:50)
[2019-05-01] MEDS: DOCUSATE 100 MG CAP PO PRN ×2 (08:50→23:38)
[2019-05-01] MEDS: AZITHROMYCIN 500 MG in SODIUM CHLORIDE 0.9% 250 ML IVPB SCH (08:51)
--- NOTE | 2019-05-01 09:15 | P.PN ---
Subjective Progress Note Date: 05/01/19 This patient seen and examined at bedside, reports that she's feeling worse today overall, more fatigue and tired and weak, denies subjective fevers chills or night sweats. Able to wean down to 4 L via nasal cannula, patient complaining of pyrosis reflux symptoms. Reports that she is moving her bowels p atient reporting she is eating half her meals , No acute events overnight Objective - Vital Signs Vital signs: Vital Signs Temp 98.0 F 05/01/19 07:56 Pulse 94 05/01/19 08:20 Resp 20 05/01/19 07:56 BP 171/90 05/01/19 07:56 Pulse Ox 92 L 05/01/19 07:56 Intake & Output 04/30/19 05/01/19 05/01/19 18:59 06:59 18:59 Intake Total 2220 200 Balance 2220 200 Weight 82.1 kg Intake: Intake, IV Titration 1500 80 Amount Azithromycin 500 mg In 250 Sodium Chloride 0.9% 250 ml @ 250 mls/hr IVPB DAILY [facility] Rx#:[id number] Sodium Chloride 0.9% 1, 1200 80 000 ml @ 100 mls/hr IV . Q10H [facility] Rx#:[id number] cefTRIAXone 1 gm In 50 Sodium Chloride 0.9% 50 ml @ 100 mls/hr IVPB Q24HR [facility] Rx#:[id number] Oral 720 120 Other: Voiding Method Toilet Toilet # Voids 1 1 - Exam Constitutional: No acute distress, conversant, pleasant Eyes: Anicteric sclerae, moist conjunctiva, no lid-lag, PERRLA ENMT: NC/AT,Oropharynx clear, no erythema, exudates Neck:Supple, FROM, no masses, or JVD, No carotid bruits; No thyromegaly Lungs: Right lower rhonchi with expiratory wheezes, diminished in the bases unlabored on 4 L by nasal cannula Cardiovascular: Heart regular in rate and rhythm, No murmurs, gallops, or rubs no peripheral edema Abdominal: Soft Nontender, nom distended, no guarding, no rebound or rigidity, Normoactive bowel sounds No hepatomegaly, No splenomegaly, No palpable mass No abdominal wall hernia noted Skin: Normal temperature, tone, texture, turgor, No induration No subcutaneous nodules, No rash, lesions, No ulcers Extremities:No digital cyanosis No clubbing, Pedal pulses intact and symmetrical Radial pulses intact and symmetrical Normal gait and station, No calf tenderness Psychiatric: Alert and oriented to person, place and time, Appropriate affect Intact judgement Neuro: Muscles Strength 5/5 in all 4 extremities, Sensation to light touch grossly present throughout, Cranial nerves II-XII grossly intact. No focal sensory deficits - Labs CBC & Chem 7: 05/01/19 05:10 05/01/19 05:10 Labs: Abnormal Lab Results - Last 24 Hours (Table) 04/30/19 04/30/19 04/30/19 Range/Units 11:53 16:49 20:35 WBC (3.8-10.6) k/uL Plt Count (150-450) k/uL Neutrophils # (1.3-7.7) k/uL Monocytes # (0-1.0) k/uL BUN (7-17) mg/dL Glucose (74-99) mg/dL POC Glucose (mg/dL) 185 H 154 H 170 H (75-99) mg/dL 05/01/19 05/01/19 05/01/19 Range/Units 05:10 05:10 06:05 WBC 29.0 H (3.8-10.6) k/uL Plt Count 714 H (150-450) k/uL Neutrophils # 25.8 H (1.3-7.7) k/uL Monocytes # 1.4 H (0-1.0) k/uL BUN 21 H (7-17) mg/dL Glucose 114 H (74-99) mg/dL POC Glucose (mg/dL) 116 H (75-99) mg/dL Microbiology - Last 24 Hours (Table) 04/30/19 08:58 Gram Stain - Preliminary Sputum Sputum Culture - Preliminary 04/28/19 16:57 Blood Culture - Preliminary Blood No Growth after 48 hours 04/28/19 11:33 Blood Culture - Preliminary Blood No Growth after 48 hours Assessment and Plan Assessment: Acute respiratory failure with hypoxia * Secondary to a community-acquired pneumonia in the setting of acute COPD exacerbation * Continue supplemental oxygen currently on 4 L via nasal cannula, nursing instructed to wean as tolerated * Chest x-ray indicating improved aeration of the right lung base * Pulmonary consulted recommendations pending Sepsis * Secondary to community-acquired pneumonia * White count trending up to 29 patient afebrile * Continue empiric IV antibiotics with Rocephin and azithromycin, blood cultures pending, urinalysis negative Community-acquired pneumonia * Treatment as above Acute COPD exacerbation with asthma * continue systemic steroids with IV Solu-Medrol, Pulmicort and Perforomist added * Continue scheduled Atrovent DuoNeb breathing treatments * Robitussin-AC continued for ongoing nocturnal paroxysms of cough Essential hypertension * Blood pressure stable and controlled GERD * We'll add Protonix Constipation * Patient had bowel movement overnight continue Colace as needed disposition * Continue current management at this time we'll continue to follow the patient * Discussed with nurse patient needs her Robitussin with codeine at night to help her cough and to help her sleep
--- NOTE | 2019-05-01 11:13 | P.PN ---
Subjective Progress Note Date: 05/01/19 Principal diagnosis: Acute hypoxic respiratory failure secondary to acute right lower lobe pneumonia and acute exacerbation of COPD This is a very pleasant 83-year-old female patient who follows with Dr. Ashley as her primary care physician. She has history of hypertension. She also has a history of chronic obstructive pulmonary disease, upper lobe predominance and follows with Dr. Gilbert in our office for the same. FEV1 is 1.3 L which is 72% of predicted. She is maintained on Advair and Spiriva and albuterol. She is also had pseudomonas aeruginosa on bronchial washings in August 2018. She presented there yesterday with worsening shortness of breath, cough and conge stion. She was found to have a patchy right lower lobe infiltrate/pneumonia. She did have hypoxemia and is currently on 8 L high flow nasal cannula. She is seen today in consultation on the selective care unit. She is currently resting comfortably in bed. Awake and alert in no acute distress. She does have a loose nonproductive cough. Currently afebrile. Hemodynamically stable. White count 20.8. Hemoglobin 12.4. Creatinine 0.73. She has been initiated on DuoNeb inhalations, IV site Medrol, antibiotics in the form of ceftriaxone and azithromycin. Lovenox for DVT prophylaxis. Patient was reevaluated today on 04/30/2019, feeling better, breathing easier, less cough and less wheezing less shortness of breath.remains on high flow nasal cannula however her O2 saturations 98%, and overall the patient is feeling great.however she has leukocytosis with WBC of 28 hemoglobin is 12.3 e lectrolytes are normal renal profile is normal. On 05/01/2019 patient is seen in follow-up. She is resting in bed, still very congested and dyspnea. FiO2 is down to 4 L, her pulse ox is 92-93%, afebrile, blood and sputum cultures have been sent, and are pending at this time. Today's lab work has been reviewed, showing white blood cell count is 29, hemoglobin is 12.4, electrolytes were within normal limits, B1 is 21, creatinine 0.67. Remains on empiric antibiotics in the form of azithromycin and ceftriaxone, and high-dose steroids Objective - Vital Signs Vital signs: Vital Signs Temp 98.0 F 05/01/19 07:56 Pulse 94 05/01/19 08:20 Resp 20 05/01/19 08:00 BP 171/90 05/01/19 07:56 Pulse Ox 92 L 05/01/19 07:56 Intake & Output 04/30/19 05/01/19 05/01/19 18:59 06:59 18:59 Intake Total 2220 200 358 Balance 2220 200 358 Weight 82.1 kg Intake: Intake, IV Titration 1500 80 Amount Azithromycin 500 mg In 250 Sodium Chloride 0.9% 250 ml @ 250 mls/hr IVPB DAILY [facility] Rx#:[id number] Sodium Chloride 0.9% 1, 1200 80 000 ml @ 100 mls/hr IV . Q10H [facility] Rx#:[id number] cefTRIAXone 1 gm In 50 Sodium Chloride 0.9% 50 ml @ 100 mls/hr IVPB Q24HR [facility] Rx#:[id number] Oral 720 120 358 Other: Voiding Method Toilet Toilet Toilet # Voids 1 1 1 - Exam GENERAL EXAM: Alert, very pleasant, 83-year-old -[place] female, currently on 4 L of oxygen with a pulse ox of 92%, comfortable in no apparent distress. HEAD: Normocephalic/atraumatic. EYES: Normal reaction of pupils, equal size. Conjunctiva pink, sclera white. NOSE: Clear with pink turbinates. THROAT: No erythema or exudates. NECK: No masses, no JVD, no thyroid enlargement, no adenopathy. CHEST: No chest wall deformity. Symmetrical expansion. LUNGS: Equal air entry with diffuse wheezes and rhonchi CVS: Regular rate and rhythm, normal S1 and S2, no gallops, no murmurs, no rubs ABDOMEN: Soft, nontender. No hepatosplenomegaly, normal bowel sounds, no guarding or rigidity. EXTREMITIES: No clubbing, no edema, no cyanosis, 2+ pulses and upper and lower extremities. MUSCULOSKELETAL: Muscle strength and tone normal. SPINE: No scoliosis or deformity SKIN: No rashes CENTRAL NERVOUS SYSTEM: Alert and oriented -3. No focal deficits, tone is normal in all 4 extremities. PSYCHIATRIC: Alert and oriented -3. Appropriate affect. Intact judgment and insight. - Labs CBC & Chem 7: 05/01/19 05:10 05/01/19 05:10 Labs: Abnormal Lab Results - Last 24 Hours (Table) 04/30/19 04/30/1919 Range/Units 11:53 16:49 20:35 WBC (3.8-10.6) k/uL Plt Count (150-450) k/uL Neutrophils # (1.3-7.7) k/uL Monocytes # (0-1.0) k/uL BUN (7-17) mg/dL Glucose (74-99) mg/dL POC Glucose (mg/dL) 185 H 154 H 170 H (75-99) mg/dL 05/01/19 05/01/19 05/01/19 Range/Units 05:10 05:10 06:05 WBC 29.0 H (3.8-10.6) k/uL Plt Count 714 H (150-450) k/uL Neutrophils # 25.8 H (1.3-7.7) k/uL Monocytes # 1.4 H (0-1.0) k/uL BUN 21 H (7-17) mg/dL Glucose 114 H (74-99) mg/dL POC Glucose (mg/dL) 116 H (75-99) mg/dL Microbiology - Last 24 Hours (Table) 04/30/19 08:58 Gram Stain - Preliminary Sputum Sputum Culture - Preliminary 04/28/19 16:57 Blood Culture - Preliminary Blood No Growth after 48 hours 04/28/19 11:33 Blood Culture - Preliminary Blood No Growth after 48 hours Assessment and Plan Plan: Assessment: 1 acute hypoxic respiratory failure secondary to an acute right lower lobe pneumonia, community-acquired. 2 acute exacerbation of chronic obstructive pulmonary disease secondary to above. 3 leukocytosis secondary to above. 4 history of pseudomonas aeruginosa in bronchial washings in August 2018. 5 hypertension Plan: Continue current antibiotics, current dose IV steroids, and breathing treatments. Today's chest x-ray has been reviewed showing improved aeration of the right infrahilar region, and a minimal residual strand-like opacity in the right midlung. Patient is still very dyspneic, and fatigue, but no fever or chills, brought calcitonin level came back elevated, supporting the diagnosis of pneumonia. We'll continue to follow I performed a history & physical examination of the patient and discussed their management with my nurse practitioner, Lori Walker. I reviewed the nurse practitioner's note and agree with the documented findings and plan of care. Lung sounds are positive for diffuse wheezes and rhonchi. The findings and the impression was discussed with the patient. I attest to the documentation by the nurse practitioner. Time with Patient: Less than 30
[2019-05-01] MEDS: PANTOPRAZOLE 40 MG TABLET PO SCH ×2 (12:14→17:59)
[2019-05-01 12:30] LABS: Glucose,Whole Blood 129 mg/dL (75-99)
[2019-05-01 17:39] LABS: Glucose,Whole Blood 204 mg/dL (75-99)
[2019-05-01] MEDS: LOSARTAN 50 MG TAB PO SCH (20:45)
[2019-05-01 20:57] LABS: Glucose,Whole Blood 149 mg/dL (75-99)
[2019-05-02] MEDS: POLYMYXIN B-TRIMETHOPRIM SULF (10,000-1) OPHTH DROPS 10 ML BTL BOTH EYES SCH ×5 (00:40→23:24)
[2019-05-02] MEDS: SODIUM CHLORIDE 0.9% 1,000 ML IV SCH ×3 (00:40→17:20)
[2019-05-02] MEDS: methylPREDNISolone SOD SUCCI 125 MG/2 ML VIAL IV SCH ×4 (05:50→23:15)
[2019-05-02] MEDS: PANTOPRAZOLE 40 MG TABLET PO SCH ×2 (05:51→17:57)
[2019-05-02 06:23] LABS: Glucose,Whole Blood 131 mg/dL (75-99)
[2019-05-02] MEDS: INSULIN ASPART (NovoLOG) 100 UNIT/ML VIAL SQ SCH ×4 (06:25→20:38)
[2019-05-02] MEDS: IPRATROPIUM-ALBUTEROL 3 ML NEB INHALATION SCH ×4 (08:10→19:45)
[2019-05-02] MEDS: FORMOTEROL FUMARATE 20 MCG/2 ML NEBU INHALATION SCH ×2 (08:11→19:45)
[2019-05-02] MEDS: BUDESONIDE 1 MG/2 ML NEBU INHALATION SCH ×2 (08:11→19:45)
[2019-05-02] MEDS: AZITHROMYCIN 500 MG TAB PO SCH (08:58)
[2019-05-02] MEDS: DOCUSATE 100 MG CAP PO PRN (08:58)
[2019-05-02] MEDS: guaiFENesin 600 MG TABLET.ER PO SCH ×2 (08:58→22:20)
[2019-05-02] MEDS: amLODIPine 10 MG TAB PO SCH (08:58)
[2019-05-02] MEDS: ENOXAPARIN 40 MG/0.4 ML SYRINGE SQ SCH (08:59)
[2019-05-02] MEDS ORDERED: POLYETHYLENE GLYCOL 3350 17 GM POWD.PACK PO STA (09:33)
--- NOTE | 2019-05-02 09:40 | P.PN ---
Subjective Progress Note Date: 05/02/19 Patient seen and examined at bedside reports feeling a bit better today, better sleep overnight coughing becoming nonproductive. Patient reports improvement of her wheezes, denies abdominal pain but reporting constipation no bowel movements. The patient still on 4 L via nasal cannula. No acute events o vernight patient afebrile Objective - Vital Signs Vital signs: Vital Signs Temp 98.2 F 05/02/19 08:30 Pulse 82 05/02/19 08:32 Resp 18 05/02/19 08:30 BP 140/73 05/02/19 08:30 Pulse Ox 94 L 05/02/19 08:30 Intake & Output 05/01/19 05/02/19 05/02/19 18:59 06:59 18:59 Intake Total 2698 120 360 Balance 2698 120 360 Weight 82.6 kg Intake: Intake, IV Titration 1500 Amount Azithromycin 500 mg In 250 Sodium Chloride 0.9% 250 ml @ 250 mls/hr IVPB DAILY [facility] Rx#:[id number] Sodium Chloride 0.9% 1, 1200 000 ml @ 100 mls/hr IV . Q10H [facility] Rx#:[id number] cefTRIAXone 1 gm In 50 Sodium Chloride 0.9% 50 ml @ 100 mls/hr IVPB Q24HR [facility] Rx#:[id number] Oral 1198 120 360 Other: Voiding Method Toilet Toilet # Voids 1 2 - Exam Constitutional: No acute distress, conversant, pleasant Eyes: Anicteric sclerae, moist conjunctiva, no lid-lag, PERRLA ENMT: NC/AT,Oropharynx clear, no erythema, exudates Neck:Supple, FROM, no masses, or JVD, No carotid bruits; No thyromegaly Lungs: Right lower rhonchi with expiratory wheezes, diminished in the bases unlabored on 4 L by nasal cannula Cardiovascular: Heart regular in rate and rhythm, No murmurs, gallops, or rubs no peripheral edema Abdominal: Soft Nontender, nom distended, no guarding, no rebound or rigidity, Normoactive bowel sounds No hepatomegaly, No splenomegaly, No palpable mass No abdominal wall hernia noted Skin: Normal temperature, tone, texture, turgor, No induration No subcutaneous n odules, No rash, lesions, No ulcers Extremities:No digital cyanosis No clubbing, Pedal pulses intact and symmetrical Radial pulses intact and symmetrical Normal gait and station, No calf tenderness Psychiatric: Alert and oriented to person, place and time, Appropriate affect Intact judgement Neuro: Muscles Strength 5/5 in all 4 extremities, Sensation to light touch grossly present throughout, Cranial nerves II-XII grossly intact. No focal sensory deficits - Labs CBC & Chem 7: 05/01/19 05:10 05/01/19 05:10 Labs: Abnormal Lab Results - Last 24 Hours (Table) 05/01/19 05/01/19 05/01/19 Range/Units 12:29 17:37 20:57 POC Glucose (mg/dL) 129 H 204 H 149 H (75-99) mg/dL 05/02/19 Range/Units 06:22 POC Glucose (mg/dL) 131 H (75-99) mg/dL Microbiology - Last 24 Hours (Table) 04/30/19 08:58 Gram Stain - Final Sputum Sputum Culture - Final Lavern albicans 04/28/19 16:57 Blood Culture - Preliminary Blood No Growth after 72 hours 04/28/19 11:33 Blood Culture - Preliminary Blood No Growth after 72 hours Assessment and Plan Assessment: Acute respiratory failure with hypoxia * Secondary to a community-acquired pneumonia in the setting of acute COPD exacerbation * Continue supplemental oxygen currently on 4 L via nasal cannula, nursing instructed to wean as tolerated * Chest x-ray indicating improved aeration of the right lung base * Pulmonary consulted recommendations pending Sepsis * Secondary to community-acquired pneumonia * White count trending up to 29 patient afebrile * Continue empiric IV antibiotics with Rocephin and azithromycin, blood cultures pending, urinalysis negative Community-acquired pneumonia * Treatment as above Acute COPD exacerbation with asthma * continue systemic steroids with IV Solu-Medrol, Pulmicort and Perforomist added * Continue scheduled Atrovent DuoNeb breathing treatments * Robitussin-AC continued for ongoing nocturnal paroxysms of cough Essential hypertension * Blood pressure stable and controlled GERD * We'll add Protonix Constipation * Patient had bowel movement overnight continue Colace as needed disposition * Continue current management at this time we'll continue to follow the patient * Discussed with nurse patient needs her Robitussin with codeine at night to help her cough and to help her sleep
[2019-05-02 11:05] LABS: HCT 41.5 % (34.0-46.0); HGB 13.7 gm/dL (11.4-16.0); MCH 30.6 pg (25.0-35.0); MCV 92.9 fL (80.0-100.0); Mean Platelet Volume 6.2; Platelet Count 790 k/uL (150-450); RBC 4.47 m/uL (3.80-5.40); RDW 12.8 % (11.5-15.5)
[2019-05-02 12:04] LABS: Band Neutrophils % 2 %; Lymphocytes # (M) 2.97 k/uL (1.0-4.8); Monocytes # (M) 0.99 k/uL (0-1.0); Neutrophils % (M) 87 %; Nucleated Red Blood Cells 0 /100 WBC (0-0); Total Cells Counted 200
--- NOTE | 2019-05-02 12:08 | P.PN ---
Subjective Progress Note Date: 05/02/19 Principal diagnosis: acute hypoxic respiratory failure secondary to acute right lower lobe pneumonia and acute exacerbation of COPD. This is a very pleasant 83-year-old female patient who follows with Dr. Ashley as her primary care physician. She has history of hypertension. She also has a history of chronic obstructive pulmonary disease, upper lobe predominance and follows with Dr. Gilbert in our office for the same. FEV1 is 1.3 L which is 72% of predicted. She is maintained on Advair and Spiriva and albuterol. She is also had pseudomonas aeruginosa on bronchial washings in August 2018. She presented there yesterday with worsening shortness of breath, cough and kimberlee estion. She was found to have a patchy right lower lobe infiltrate/pneumonia. She did have hypoxemia and is currently on 8 L high flow nasal cannula. She is seen today in consultation on the selective care unit. She is currently resting comfortably in bed. Awake and alert in no acute distress. She does have a loose nonproductive cough. Currently afebrile. Hemodynamically stable. White count 20.8. Hemoglobin 12.4. Creatinine 0.73. She has been initiated on DuoNeb inhalations, IV site Medrol, antibiotics in the form of ceftriaxone and azithromycin. Lovenox for DVT prophylaxis. Patient was reevaluated today on 04/30/2019, feeling better, breathing easier, less cough and less wheezing less shortness of breath.remains on high flow nasal cannula however her O2 saturations 98%, and overall the patient is feeling great.however she has leukocytosis with WBC of 28 hemoglobin is 12.3 electrolytes are normal renal profile is normal. On 05/01/2019 patient is seen in follow-up. She is resting in bed, still very congested and dyspnea. FiO2 is down to 4 L, her pulse ox is 92-93%, afebrile, blood and sputum cultures have been sent, and are pending at this time. Today's lab work has been reviewed, showing white blood cell count is 29, hemoglobin is 12.4, electrolytes were within normal limits, B1 is 21, creatinine 0.67. Remains on empiric antibiotics in the form of azithromycin and ceftriaxone, and high-dose steroids. The patient is seen today 05/02/2019 in follow-up on the regular medical floor. She is still having shortness of breath with cough and congestion. Still not quite back to her baseline. She is a bit better today compared to yesterday. She's afebrile. Hemodynamically stable. Maintain O2 saturations in the 90s on 2 L/m per nasal cannula. Objective - Vital Signs Vital signs: Vital Signs Temp 98.2 F 05/02/19 08:30 Pulse 85 05/02/19 11:36 Resp 18 05/02/19 08:30 BP 140/73 05/02/19 08:30 Pulse Ox 94 L 05/02/19 08:30 Intake & Output 05/01/19 05/02/19 05/02/19 18:59 06:59 18:59 Intake Total 2698 120 360 Balance 2698 120 360 Weight 82.6 kg Intake: Intake, IV Titration 1500 Amount Azithromycin 500 mg In 250 Sodium Chloride 0.9% 250 ml @ 250 mls/hr IVPB DAILY [facility] Rx#:[id number] Sodium Chloride 0.9% 1, 1200 000 ml @ 100 mls/hr IV . Q10H [facility] Rx#:[id number] cefTRIAXone 1 gm In 50 Sodium Chloride 0.9% 50 ml @ 100 mls/hr IVPB Q24HR [facility] Rx#:[id number] Oral 1198 120 360 Other: Voiding Method Toilet Toilet # Voids 1 2 3 - Exam GENERAL EXAM: Alert, active, comfortable in no apparent distress. On 2 L nasal cannula. HEAD: Normocephalic. EYES: Normal reaction of pupils, equal size. NOSE: Clear with pink turbinates. THROAT: No erythema or exudates. NECK: No masses, no JVD. CHEST: No chest wall deformity. LUNGS: Equal air entry with few scattered rhonchi, bilateral end expiratory wheeze. CVS: S1 and S2 normal with no audible murmur, regular rhythm. ABDOMEN: No hepatosplenomegaly, normal bowel sounds, no guarding or rigidity. SPINE: No scoliosis or deformity SKIN: No rashes CENTRAL NERVOUS SYSTEM: No focal deficits, tone is normal in all 4 extremities. EXTREMITIES: There is no peripheral edema. No clubbing, no cyanosis. Peripheral pulses are intact. - Labs CBC & Chem 7: 05/02/19 10:42 05/01/19 05:10 Labs: Abnormal Lab Results - Last 24 Hours (Table) 05/01/19 05/01/19 05/01/19 Range/Units 12:29 17:37 20:57 WBC (3.8-10.6) k/uL Plt Count (150-450) k/uL Neutrophils # (Manual) (1.3-7.7) k/uL POC Glucose (mg/dL) 129 H 204 H 149 H (75-99) mg/dL 05/02/19 05/02/19 Range/Units 06:22 10:42 WBC 33.0 H (3.8-10.6) k/uL Plt Count 790 H (150-450) k/uL Neutrophils # (Manual) 29.30 H (1.3-7.7) k/uL POC Glucose (mg/dL) 131 H (75-99) mg/dL Microbiology - Last 24 Hours (Table) 04/30/19 08:58 Gram Stain - Final Sputum Sputum Culture - Final Lavern albicans 04/28/19 16:57 Blood Culture - Preliminary Blood No Growth after 72 hours 04/28/19 11:33 Blood Culture - Preliminary Blood No Growth after 72 hours Assessment and Plan Assessment: 1 acute hypoxic respiratory failure secondary to an acute right lower lobe pneumonia, community-acquired. 2 acute exacerbation of chronic obstructive pulmonary disease secondary to above. 3 leukocytosis secondary to above. 4 history of pseudomonas aeruginosa in bronchial washings in August 2018. 5 hypertension Plan: The patient was seen and evaluated by Dr. Richardson. We'll continue with DuoNeb inhalations. Continue Pulmicort and Perforomist inhalations. Continue IV Solu- Medrol. Continue antibiotics in the form of ceftriaxone and azithromycin. Titrate down the FiO2 as tolerated. We'll continue to follow and make further recommendations based on her clinical status. I, the cosigning physician, performed a history & physical examination of the patient. Lungs sounds with crackles in the right base, bilateral end expiratory wheeze, diminished. Maintaining good O2 saturations in the 90s on 2 L nasal cannula. I discussed the assessment and plan of care with my nurse practitioner, Teresa Alejandro. I attest to the above note as dictated by her.
[2019-05-02 12:10] LABS: Glucose,Whole Blood 124 mg/dL (75-99)
[2019-05-02 17:07] LABS: Glucose,Whole Blood 167 mg/dL (75-99)
[2019-05-02 20:23] LABS: Glucose,Whole Blood 150 mg/dL (75-99)
[2019-05-02] MEDS: LOSARTAN 50 MG TAB PO SCH (22:21)
[2019-05-02] MEDS: guaiFENesin-Coden 100-10MG/5ML 10 ML CUP PO PRN (23:15)
[2019-05-03] MEDS: SODIUM CHLORIDE 0.9% 1,000 ML IV SCH ×2 (04:11→15:55)
[2019-05-03 06:10] LABS: Glucose,Whole Blood 138 mg/dL (75-99)
[2019-05-03] MEDS: methylPREDNISolone SOD SUCCI 125 MG/2 ML VIAL IV SCH ×4 (06:12→23:15)
[2019-05-03] MEDS: PANTOPRAZOLE 40 MG TABLET PO SCH ×2 (06:12→17:45)
[2019-05-03] MEDS: POLYMYXIN B-TRIMETHOPRIM SULF (10,000-1) OPHTH DROPS 10 ML BTL BOTH EYES SCH ×4 (06:12→23:15)
[2019-05-03] MEDS: INSULIN ASPART (NovoLOG) 100 UNIT/ML VIAL SQ SCH ×4 (06:27→20:40)
[2019-05-03 07:03] LABS: HCT 41.6 % (34.0-46.0); HGB 14.2 gm/dL (11.4-16.0); MCH 31.9 pg (25.0-35.0); MCV 93.7 fL (80.0-100.0); Mean Platelet Volume 6.4; Platelet Count 827 k/uL (150-450); RBC 4.44 m/uL (3.80-5.40); RDW 12.8 % (11.5-15.5); WBC 33.6 k/uL (3.8-10.6)
[2019-05-03] MEDS: ENOXAPARIN 40 MG/0.4 ML SYRINGE SQ SCH (08:04)
[2019-05-03] MEDS: AZITHROMYCIN 500 MG TAB PO SCH (08:04)
[2019-05-03] MEDS: POLYETHYLENE GLYCOL 3350 17 GM POWD.PACK PO SCH (08:05)
[2019-05-03] MEDS: guaiFENesin 600 MG TABLET.ER PO SCH ×2 (08:05→20:40)
[2019-05-03] MEDS: amLODIPine 10 MG TAB PO SCH (08:05)
[2019-05-03 08:41] LABS: Band Neutrophils % 1 %; Metamyelocytes # (M) 0.34 k/uL (0); Metamyelocytes % 1 %; Monocytes # (M) 1.01 k/uL (0-1.0); Myelocytes # (M) 0.67 k/uL (0); Myelocytes % 2 %; Neutrophils % (M) 83 %; Nucleated Red Blood Cells 0 /100 WBC (0-0); Total Cells Counted 200
[2019-05-03 08:42] LABS: Poikilocytosis (M) Present
[2019-05-03] MEDS: IPRATROPIUM-ALBUTEROL 3 ML NEB INHALATION SCH ×4 (08:51→20:38)
[2019-05-03] MEDS: FORMOTEROL FUMARATE 20 MCG/2 ML NEBU INHALATION SCH ×2 (08:51→20:38)
[2019-05-03] MEDS: BUDESONIDE 1 MG/2 ML NEBU INHALATION SCH ×2 (08:51→20:38)
[2019-05-03 11:24] VITALS: BMI 28.1
--- NOTE | 2019-05-03 11:54 | P.PN ---
Subjective Progress Note Date: 05/03/19 Principal diagnosis: acute hypoxic respiratory failure secondary to acute right lower lobe pneumonia and acute exacerbation of COPD. This is a very pleasant 83-year-old female patient who follows with Dr. Ashley as her primary care physician. She has history of hypertension. She also has a history of chronic obstructive pulmonary disease, upper lobe predominance and follows with Dr. Gilbert in our office for the same. FEV1 is 1.3 L which is 72% of predicted. She is maintained on Advair and Spiriva and albuterol. She is also had pseudomonas aeruginosa on bronchial washings in August 2018. She presented there yesterday with worsening shortness of breath, cough and kimberlee estion. She was found to have a patchy right lower lobe infiltrate/pneumonia. She did have hypoxemia and is currently on 8 L high flow nasal cannula. She is seen today in consultation on the selective care unit. She is currently resting comfortably in bed. Awake and alert in no acute distress. She does have a loose nonproductive cough. Currently afebrile. Hemodynamically stable. White count 20.8. Hemoglobin 12.4. Creatinine 0.73. She has been initiated on DuoNeb inhalations, IV site Medrol, antibiotics in the form of ceftriaxone and azithromycin. Lovenox for DVT prophylaxis. Patient was reevaluated today on 04/30/2019, feeling better, breathing easier, less cough and less wheezing less shortness of breath.remains on high flow nasal cannula however her O2 saturations 98%, and overall the patient is feeling great.however she has leukocytosis with WBC of 28 hemoglobin is 12.3 electrolytes are normal renal profile is normal. On 05/01/2019 patient is seen in follow-up. She is resting in bed, still very congested and dyspnea. FiO2 is down to 4 L, her pulse ox is 92-93%, afebrile, blood and sputum cultures have been sent, and are pending at this time. Today's lab work has been reviewed, showing white blood cell count is 29, hemoglobin is 12.4, electrolytes were within normal limits, B1 is 21, creatinine 0.67. Remains on empiric antibiotics in the form of azithromycin and ceftriaxone, and high-dose steroids. The patient is seen today 05/02/2019 in follow-up on the regular medical floor. She is still having shortness of breath with cough and congestion. Still not quite back to her baseline. She is a bit better today compared to yesterday. She's afebrile. Hemodynamically stable. Maintain O2 saturations in the 90s on 2 L/m per nasal cannula. The patient is seen today 05/03/2019 in follow-up on the regular medical floor. She is awake and alert in no acute distress. She's been up ambulating. Up in the shower. Feeling better compared to yesterday. Still not quite back to her baseline. Continues with a loose congested cough. Blood culture reveals no growth. Sputum culture reveals Lavern only. White count 33.6. Hemoglobin 14.2. Platelets 827,000. She remains on DuoNeb inhalations, Pulmicort and Perforomist inhalations, IV Solu-Medrol, antibiotics in the form of ceftriaxone and azithromycin. Objective - Vital Signs Vital signs: Vital Signs Temp 98.2 F 05/03/19 08:00 Pulse 104 H 05/03/19 09:09 Resp 18 05/03/19 08:00 BP 194/88 05/03/19 08:00 Pulse Ox 97 05/03/19 08:00 Intake & Output 05/02/19 05/03/19 05/03/19 18:59 06:59 18:59 Intake Total 720 600 600 Balance 720 600 600 Weight 82.8 kg 82.8 kg Intake: Intake, IV Titration 600 Amount Sodium Chloride 0.9% 1, 600 000 ml @ 100 mls/hr IV . Q10H [facility] Rx#:[id number] Oral 720 600 Other: Voiding Method Toilet # Voids 3 - Exam GENERAL EXAM: Alert, active, very pleasant 83-year-old female patient, comfortable in no apparent distress. On 2 L nasal cannula. HEAD: Normocephalic. EYES: Normal reaction of pupils, equal size. NOSE: Clear with pink turbinates. THROAT: No erythema or exudates. NECK: No masses, no JVD. CHEST: No chest wall deformity. LUNGS: Equal air entry with few scattered rhonchi, bilateral end expiratory wheeze. CVS: S1 and S2 normal with no audible murmur, regular rhythm. ABDOMEN: No hepatosplenomegaly, normal bowel sounds, no guarding or rigidity. SPINE: No scoliosis or deformity SKIN: No rashes CENTRAL NERVOUS SYSTEM: No focal deficits, tone is normal in all 4 extremities. EXTREMITIES: There is no peripheral edema. No clubbing, no cyanosis. Peripheral pulses are intact. - Labs CBC & Chem 7: 05/03/19 06:17 05/01/19 05:10 Labs: Abnormal Lab Results - Last 24 Hours (Table) 05/02/19 05/02/19 05/02/19 Range/Units 10:42 11:57 17:04 WBC (3.8-10.6) k/uL Plt Count (150-450) k/uL Neutrophils # (Manual) 29.30 H (1.3-7.7) k/uL Monocytes # (Manual) (0-1.0) k/uL Metamyelocytes # (Man) (0) k/uL Myelocytes # (Manual) (0) k/uL POC Glucose (mg/dL) 124 H 167 H (75-99) mg/dL 05/02/19 05/03/19 05/03/19 Range/Units 20:21 06:09 06:17 WBC 33.6 H (3.8-10.6) k/uL Plt Count 827 H (150-450) k/uL Neutrophils # (Manual) 28.20 H (1.3-7.7) k/uL Monocytes # (Manual) 1.01 H (0-1.0) k/uL Metamyelocytes # (Man) 0.34 H (0) k/uL Myelocytes # (Manual) 0.67 H (0) k/uL POC Glucose (mg/dL) 150 H 138 H (75-99) mg/dL Microbiology - Last 24 Hours (Table) 04/28/19 16:57 Blood Culture - Preliminary Blood No Growth after 96 hours 04/28/19 11:33 Blood Culture - Preliminary Blood No Growth after 96 hours 04/30/19 08:58 Gram Stain - Final Sputum Sputum Culture - Final Lavern albicans Assessment and Plan Assessment: 1 acute hypoxic respiratory failure secondary to an acute right lower lobe pneumonia, community-acquired. 2 acute exacerbation of chronic obstructive pulmonary disease secondary to a bharti. 3 leukocytosis secondary to above. 4 history of pseudomonas aeruginosa in bronchial washings in August 2018. 5 hypertension 6 thrombocytosis Plan: The patient was seen and evaluated by Dr. Richardson. Recommend hematology consult regarding thrombocytosis. We'll continue with DuoNeb inhalations. Continue Pulmicort and Perforomist inhalations. Continue IV Solu-Medrol. Continue antibiotics in the form of ceftriaxone and azithromycin. Diflucan for Lavern. Titrate down the FiO2 as tolerated. We'll continue to follow and make further recommendations based on her clinical status. I, the cosigning physician, performed a history & physical examination of the patient. Lungs sounds with crackles in the right base, bilateral end expiratory wheeze, diminished. Maintaining good O2 saturations in the 90s on 2 L nasal cannula. I discussed the assessment and plan of care with my nurse practitioner, Teresa Alejandro. I attest to the above note as dictated by her.
[2019-05-03 12:08] LABS: Glucose,Whole Blood 126 mg/dL (75-99)
[2019-05-03] MEDS: FLUCONAZOLE 100 MG TAB PO SCH (12:41)
[2019-05-03] MEDS ORDERED: ZOLPIDEM 5 MG TAB PO PRN (16:45)
--- NOTE | 2019-05-03 16:47 | P.PN ---
Subjective Progress Note Date: 05/03/19 Principal diagnosis: Pneumonia, COPD exacerbation Patient was seen and examined. No acute events overnight. Patient reports significant improvement in her breathing since admission. She is speaking in full sentences. Currently saturating mid 90s on 2 L nasal cannula. She denies any chest pain or palpitations. No nausea or vomiting. No fever or chills. Objective - Vital Signs Vital signs: Vital Signs Temp 98.2 F 05/03/19 12:36 Pulse 105 H 05/03/19 12:36 Resp 18 05/03/19 13:00 BP 194/72 05/03/19 12:36 Pulse Ox 96 05/03/19 12:36 Intake & Output 05/02/19 05/03/19 05/03/19 18:59 06:59 18:59 Intake Total 720 600 600 Balance 720 600 600 Weight 82.8 kg 82.8 kg Intake: Intake, IV Titration 600 Amount Sodium Chloride 0.9% 1, 600 000 ml @ 100 mls/hr IV . Q10H [facility] Rx#:[id number] Oral 720 600 Other: Voiding Method Toilet Toilet # Voids 3 3 - Exam General: [non toxic], [no distress], [appears at stated age] Derm: [warm], [dry] Head: [atraumatic], [normocephalic], [symmetric] Eyes: [EOMI], [no lid lag], [anicteric sclera] Mouth: [no lip lesion], [mucus membranes moist] Cardiovascular: [S1S2 reg], [tachycardia, positive posterior tibial pulse bilateral] Lungs: [CTA bilateral], [no rhonchi, no rales] , [no accessory muscle use] Abdominal: [soft], [ nontender to palpation], [no guarding], [no appreciable organomegaly] Ext: [no gross muscle atrophy], [no edema], [no contractures] Neuro: [no focal neuro deficits] Psych: [Alert], [oriented], [appropriate affect] - Labs CBC & Chem 7: 05/03/19 06:17 05/01/19 05:10 Labs: Abnormal Lab Results - Last 24 Hours (Table) 05/02/19 05/02/19 05/03/19 Range/Units 17:04 20:21 06:09 WBC (3.8-10.6) k/uL Plt Count (150-450) k/uL Neutrophils # (Manual) (1.3-7.7) k/uL Monocytes # (Manual) (0-1.0) k/uL Metamyelocytes # (Man) (0) k/uL Myelocytes # (Manual) (0) k/uL POC Glucose (mg/dL) 167 H 150 H 138 H (75-99) mg/dL 05/03/19 05/03/19 Range/Units 06:17 12:07 WBC 33.6 H (3.8-10.6) k/uL Plt Count 827 H (150-450) k/uL Neutrophils # (Manual) 28.20 H (1.3-7.7) k/uL Monocytes # (Manual) 1.01 H (0-1.0) k/uL Metamyelocytes # (Man) 0.34 H (0) k/uL Myelocytes # (Manual) 0.67 H (0) k/uL POC Glucose (mg/dL) 126 H (75-99) mg/dL Microbiology - Last 24 Hours (Table) 04/28/19 11:33 Blood Culture - Preliminary Blood No Growth after 120 hours 04/28/19 16:57 Blood Culture - Preliminary Blood No Growth after 96 hours Assessment and Plan Assessment: Assessment and plan Acute hypoxic respiratory failure due to COPD exacerbation and community- acquired pneumonia Sepsis related to acquired pneumonia Hypertension GERD Leukocytosis Patient is saturating mid 90s on 2 L NC. Most recent chest x-ray shows improved aeration of the right infrahilar region. Echocardiogram in June shows EF 55- 60% with normal wall thickness. Sputum culture positive for Lavern. Plans: Start ceftriaxone and azithromycin for concerns of community-acquired pneumonia. Continue fluconazole for treatment of Lavern. Continue formoterol. Continue Robitussin. DuoNeb scheduled and as needed for shortness of breath and wheezing. Continue Solu-Medrol. O2 per NC to maintain O2 saturation greater than 92%. Follow pulmonology recommendations. Plans: Management as above. BP 194/72. Plans: Continue amlodipine and losartan. Restart metoprolol. Monit or vitals, adjust indications as necessary. Plans: Continue Protonix. Leukocytosis of 33.6. With metamyelocytes. Plans: Follow hematology consultation. Repeat CBC after resolution of pneumonia. [Patient admitted for COPD exacerbation secondary to community acquired pneumonia. She continues to require oxygen. Not quite at baseline. Likely DC in 1-2 days.]
[2019-05-03 17:31] LABS: Glucose,Whole Blood 205 mg/dL (75-99)
--- NOTE | 2019-05-03 19:36 | P.CONS ---
History of Present Illness - Reason for Consult Consult date: 05/03/19 leukocytosis, thrombocythemia Requesting physician: Elle Mason - Chief Complaint SOB - History of Present Illness Mrs. Mills is a very pleasant 83-year-old -Iranian female who we've been asked to see for leukocytosis and thrombocythemia. Patient denies any history of the same, on chart review she is been noted this past month to have increased in both lab values, there have been intermittent elevations over the past year during hospitalizations, none as increased as now. Patient's absolute neutrophil count is 28.2. CMP is within normal limits. Her sputum is positive for Lavern. On further questioning of the patient she has also had extensive w orkup with rheumatology with numerous labs evaluated. Patient denies any recent fevers, chills, unintentional weight loss, night sweats, her cough is dry and can make her short of breath, no hemoptysis, abdominal pain, cramping, bloating, acute changes in bowel or bladder habits, mild swelling in the lower extremities is stable, no bleeding or unusual bruising. 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 COLONOSCOPY-LARGE POLYP REMOVED, egd, Past Anesthesia/Blood Transfusion Reactions: No Reported Reaction Additional Past Anesthesia/Blood Transfusion Reaction / Comm: no hx blood transfusion Past Psychological History: No Psychological Hx Reported Smoking Status: Former smoker Past Alcohol Use History: Occasional Past Drug Use History: None Reported - Past Family History Sister(s) Family Medical History: Cancer Additional Family Medical History / Comment(s): #1 sister colon,# 2 sister lung Father Family Medical History: Cancer Additional Family Medical History / Comment(s): prostate Mother Family Medical History: Asthma Additional Family Medical History / Comment(s): heart problems Medications and Allergies Home Medications Medication Instructions Recorded Confirmed Type Losartan Potassium 100 mg PO HS 10/30/14 04/28/19 History amLODIPine BESYLATE [Norvasc] 10 mg PO DAILY 02/02/18 04/28/19 History Fluticasone/Salmeterol [Advair 1 puff INHALATION RT-BID 06/23/18 04/28/19 History 500-50 Diskus] Tiotropium [place] [Spiriva] 1 cap INHALATION RT-DAILY 06/23/18 04/28/19 History Ubidecarenone [Co Q-10] 100 mg PO DAILY 08/07/18 04/28/19 History Albuterol Nebulized [Ventolin 2.5 mg INHALATION RT-QID 04/28/19 04/28/19 History Nebulized] Albuterol Sulfate [Proventil Hfa] 1 puff INHALATION RT-BID PRN 04/28/19 04/28/19 History Cetirizine HCl [Zyrtec] 10 mg PO DAILY PRN 04/28/19 04/28/19 History Metoprolol Tartrate [Lopressor] 25 mg PO BID 04/28/19 04/28/19 History Zolpidem [Ambien] 5 mg PO HS PRN 04/28/19 04/28/19 History Allergies Allergy/AdvReac Type Severity Reaction Status Date / Time hydrocodone bitartrate AdvReac states Verified 04/28/19 13:34 [From Vicodin] "doesn't make me feel good" prednisone AdvReac Hallucinati Verified 04/28/19 13:34 ons Physical Exam Vitals: Vital Signs Temp Pulse Pulse Resp BP Pulse Ox 05/03/19 17:05 96 18 156/79 92 L 05/03/19 13:00 18 05/03/19 12:36 98.2 F 105 H 18 194/72 96 05/03/19 09:09 104 H 05/03/19 09:03 100 05/03/19 09:02 100 05/03/19 08:52 100 05/03/19 08:00 98.2 F 106 H 18 194/88 97 05/03/19 04:26 97.8 F 104 H 18 172/83 91 L 05/02/19 23:15 98.1 F 104 H 18 140/65 95 05/02/19 20:19 18 05/02/19 20:10 116 H 05/02/19 19:58 112 H 05/02/19 19:57 112 H 05/02/19 19:45 98.0 F 112 H 103 H 18 155/70 88 L Intake and Output 05/03/19 05/03/19 05/03/19 06:59 14:59 22:59 Intake Total 600 600 860 Balance 600 600 860 Intake: Intake, IV Titration 600 500 Amount Sodium Chloride 0.9% 1, 600 500 000 ml @ 100 mls/hr IV . Q10H [facility] Rx#:[id number] Oral 600 360 Other: Voiding Method Toilet Toilet Toilet # Voids 3 3 Weight 82.8 kg 82.8 kg - Constitutional General appearance: average body habitus, cooperative, no acute distress - EENT Eyes: anicteric sclerae, EOMI ENT: hearing grossly normal, normal oropharynx - Neck Neck: no lymphadenopathy - Respiratory Respiratory: bilateral: diminished - Cardiovascular Rhythm: regular Heart sounds: normal: S1, S2 Abnormal Heart Sounds: no systolic murmur, no diastolic murmur, no rub, no S3 Gallop, no S4 Gallop, no click, no other leg Peripheral Edema: bilateral: Trace - Gastrointestinal General gastrointestinal: no absent bowel sounds, no decreased bowel sounds, no distended, no hepatomegaly, no hyperactive bowel sounds, normal bowel sounds, no organomegaly, no rigid, no scaphoid, soft, no splenomegaly, no tenderness, no umbilical hernia, no ventral hernia - Integumentary Integumentary: normal - Neurologic Neurologic: CNII-XII intact - Musculoskeletal Musculoskeletal: strength equal bilaterally - Psychiatric Psychiatric: A&O x's 3, appropriate affect, intact judgment & insight Results CBC & Chem 7: 05/03/19 06:17 05/01/19 05:10 Labs: Abnormal Lab Results - Last 24 Hours (Table) 05/02/19 05/03/19 05/03/19 Range/Units 20:21 06:09 06:17 WBC 33.6 H (3.8-10.6) k/uL Plt Count 827 H (150-450) k/uL Neutrophils # (Manual) 28.20 H (1.3-7.7) k/uL Monocytes # (Manual) 1.01 H (0-1.0) k/uL Metamyelocytes # (Man) 0.34 H (0) k/uL Myelocytes # (Manual) 0.67 H (0) k/uL POC Glucose (mg/dL) 150 H 138 H (75-99) mg/dL 05/03/19 05/03/19 Range/Units 12:07 17:16 WBC (3.8-10.6) k/uL Plt Count (150-450) k/uL Neutrophils # (Manual) (1.3-7.7) k/uL Monocytes # (Manual) (0-1.0) k/uL Metamyelocytes # (Man) (0) k/uL Myelocytes # (Manual) (0) k/uL POC Glucose (mg/dL) 126 H 205 H (75-99) mg/dL Microbiology - Last 24 Hours (Table) 04/28/19 16:57 Blood Culture - Preliminary Blood No Growth after 120 hours 04/28/19 11:33 Blood Culture - Preliminary Blood No Growth after 120 hours Assessment and Plan (1) Thrombocythemia Current Visit: Yes Status: Acute Priority: Medium Code(s): D47.3 - ESSENTIAL (HEMORRHAGIC) THROMBOCYTHEMIA SNOMED Code(s): 5326872 (2) Leukocytosis Current Visit: Yes Status: Acute Priority: Medium Code(s): D72.829 - ELEVATED WHITE BLOOD CELL COUNT, UNSPECIFIED SNOMED Code(s): 246967113 Plan: Case was discussed with Dr. Estrada. He feels that this may be a reactive process. He would like her counts monitored while she is inpatient and in the outpatient setting with referral back to hematology if these counts do not stabilized. Also, will request all of the labs that were ordered by Rheumatology as this could reduce many duplicates. No acute intervention is needed.
[2019-05-03 20:33] LABS: Glucose,Whole Blood 143 mg/dL (75-99)
[2019-05-03] MEDS: LOSARTAN 50 MG TAB PO SCH (20:40)
[2019-05-03] MEDS: METOPROLOL TARTRATE 25 MG TAB PO SCH (20:40)
[2019-05-03] MEDS: guaiFENesin-Coden 100-10MG/5ML 10 ML CUP PO PRN (20:40)
[2019-05-04 06:09] LABS: Glucose,Whole Blood 126 mg/dL (75-99)
[2019-05-04] MEDS: INSULIN ASPART (NovoLOG) 100 UNIT/ML VIAL SQ SCH ×4 (06:11→21:21)
[2019-05-04] MEDS: POLYMYXIN B-TRIMETHOPRIM SULF (10,000-1) OPHTH DROPS 10 ML BTL BOTH EYES SCH ×4 (06:27→23:25)
[2019-05-04] MEDS: PANTOPRAZOLE 40 MG TABLET PO SCH ×2 (06:27→16:04)
[2019-05-04] MEDS: methylPREDNISolone SOD SUCCI 125 MG/2 ML VIAL IV SCH ×4 (06:32→23:25)
[2019-05-04] MEDS: IPRATROPIUM-ALBUTEROL 3 ML NEB INHALATION SCH ×4 (08:38→20:18)
[2019-05-04] MEDS: BUDESONIDE 1 MG/2 ML NEBU INHALATION SCH ×2 (08:38→20:16)
[2019-05-04] MEDS: FORMOTEROL FUMARATE 20 MCG/2 ML NEBU INHALATION SCH ×2 (08:38→20:16)
[2019-05-04] MEDS: AZITHROMYCIN 500 MG TAB PO SCH (09:38)
[2019-05-04] MEDS: ENOXAPARIN 40 MG/0.4 ML SYRINGE SQ SCH (09:39)
[2019-05-04] MEDS: amLODIPine 10 MG TAB PO SCH (09:39)
[2019-05-04] MEDS: guaiFENesin 600 MG TABLET.ER PO SCH ×2 (10:00→21:11)
[2019-05-04] MEDS: METOPROLOL TARTRATE 25 MG TAB PO SCH ×2 (10:01→21:22)
[2019-05-04] MEDS: POLYETHYLENE GLYCOL 3350 17 GM POWD.PACK PO SCH (10:02)
--- NOTE | 2019-05-04 11:08 | P.PN ---
Subjective Progress Note Date: 05/04/19 Principal diagnosis: Pneumonia, COPD exacerbation Patient was seen and examined. No acute events overnight. Patient reports significant improvement in her breathing since admission. She denies any chest pain or palpitations. No nausea or vomiting. No fever or chills. Patient does complain of some swelling in her feet bilaterally. States that this is a new problem since hospitalization. She denies any calf pain. Objective - Vital Signs Vital signs: Vital Signs Temp 98.1 F 05/04/19 08:00 Pulse 100 05/04/19 08:56 Resp 18 05/04/19 08:00 BP 173/80 05/04/19 08:00 Pulse Ox 97 05/04/19 08:00 Intake & Output 05/03/19 05/04/19 05/04/19 18:59 06:59 18:59 Intake Total 1460 240 Balance 1460 240 Weight 82.8 kg 84.1 kg Intake: Intake, IV Titration 500 Amount Sodium Chloride 0.9% 1, 500 000 ml @ 100 mls/hr IV . Q10H [facility] Rx#:[id number] Oral 960 240 Other: Voiding Method Toilet Toilet Toilet # Voids 3 1 - Exam General: [non toxic], [no distress], [appears at stated age] Derm: [warm], [dry] Head: [atraumatic], [normocephalic], [symmetric] Eyes: [EOMI], [no lid lag], [anicteric sclera] Mouth: [no lip lesion], [mucus membranes moist] Cardiovascular: [S1S2 reg], [tachycardia, positive DP pulse bilateral] Lungs: [Scattered end expiratory wheezing bilaterally], [no rhonchi, no rales] , [no accessory muscle use] Abdominal: [soft], [ nontender to palpation], [no guarding], [no appreciable organomegaly] Ext: [no gross muscle atrophy], [1+ lower extremity pitting edema], [no contractures] Neuro: [no focal neuro deficits] Psych: [Alert], [oriented], [appropriate affect] - Labs CBC & Chem 7: 05/03/19 06:17 05/01/19 05:10 Labs: Abnormal Lab Results - Last 24 Hours (Table) 05/03/19 05/03/19 05/03/19 Range/Units 12:07 17:16 20:32 POC Glucose (mg/dL) 126 H 205 H 143 H (75-99) mg/dL 05/04/19 Range/Units 06:07 POC Glucose (mg/dL) 126 H (75-99) mg/dL Microbiology - Last 24 Hours (Table) 04/28/19 16:57 Blood Culture - Preliminary Blood No Growth after 120 hours 04/28/19 11:33 Blood Culture - Preliminary Blood No Growth after 120 hours Assessment and Plan Assessment: Assessment and plan Acute hypoxic respiratory failure due to COPD exacerbation and community- acquired pneumonia Sepsis related to acquired pneumonia Lower extremity swelling Hypertension GERD Leukocytosis Patient is saturating mid 90s on 2 L NC. Most recent chest x-ray shows improved aeration of the right infrahilar region. Echocardiogram in June shows EF 55- 60% with normal wall thickness. Sputum culture positive for Lvaern. Plans: Start ceftriaxone and azithromycin for concerns of community-acquired pneumonia. Continue fluconazole for treatment of Lavern. Continue formoterol. Continue Robitussin. DuoNeb scheduled and as needed for shortness of breath and wheezing. Continue Solu-Medrol. O2 per NC to maintain O2 saturation greater than 92%. Follow pulmonology recommendations. Follow 6 minute walk test. Plans: Management as above. Possibly related to steroid use. Plans: EMANUEL wrap. BP 173/80. Plans: Continue amlodipine and losartan. Restart metoprolol. Monitor vitals, adjust indications as necessary. Plans: Continue Protonix. Leukocytosis of 33.6. With metamyelocytes. Likely related to infectious cause along with steroid use. Plans: Follow hematology consultation. Repeat CBC after resolution of pneumonia. [Patient admitted for COPD exacerbation secondary to community acquired pneumonia. She continues to require oxygen. Not quite at baseline. Likely DC tomorrow .]
[2019-05-04 11:33] LABS: Basophils # (A) 0.5 k/uL (0-0.2); Basophils % (A) 2 %; Eosinophils # (A) 0.1 k/uL (0-0.7); Eosinophils % (A) 0 %; HCT 41.1 % (34.0-46.0); HGB 13.3 gm/dL (11.4-16.0); Lymphocytes # (A) 0.8 k/uL (1.0-4.8); Lymphocytes % (A) 3 %; MCH 30.7 pg (25.0-35.0); MCHC 32.5 g/dL (31.0-37.0); MCV 94.4 fL (80.0-100.0); Mean Platelet Volume 7.1; Monocytes # (A) 0.7 k/uL (0-1.0); Monocytes % (A) 2 %; Neutrophils # (A) 29.1 k/uL (1.3-7.7); Neutrophils % (A) 93 %; Platelet Count 774 k/uL (150-450); RBC 4.35 m/uL (3.80-5.40); WBC 31.2 k/uL (3.8-10.6)
--- NOTE | 2019-05-04 11:56 | P.PN ---
Subjective Progress Note Date: 05/04/19 Principal diagnosis: acute hypoxic respiratory failure secondary to acute right lower lobe pneumonia and acute exacerbation of COPD. This is a very pleasant 83-year-old female patient who follows with Dr. Ashley as her primary care physician. She has history of hypertension. She also has a history of chronic obstructive pulmonary disease, upper lobe predominance and follows with Dr. Gilbert in our office for the same. FEV1 is 1.3 L which is 72% of predicted. She is maintained on Advair and Spiriva and albuterol. She is also had pseudomonas aeruginosa on bronchial washings in August 2018. She presented there yesterday with worsening shortness of breath, cough and kimberlee estion. She was found to have a patchy right lower lobe infiltrate/pneumonia. She did have hypoxemia and is currently on 8 L high flow nasal cannula. She is seen today in consultation on the selective care unit. She is currently resting comfortably in bed. Awake and alert in no acute distress. She does have a loose nonproductive cough. Currently afebrile. Hemodynamically stable. White count 20.8. Hemoglobin 12.4. Creatinine 0.73. She has been initiated on DuoNeb inhalations, IV site Medrol, antibiotics in the form of ceftriaxone and azithromycin. Lovenox for DVT prophylaxis. Patient was reevaluated today on 04/30/2019, feeling better, breathing easier, less cough and less wheezing less shortness of breath.remains on high flow nasal cannula however her O2 saturations 98%, and overall the patient is feeling great.however she has leukocytosis with WBC of 28 hemoglobin is 12.3 electrolytes are normal renal profile is normal. On 05/01/2019 patient is seen in follow-up. She is resting in bed, still very congested and dyspnea. FiO2 is down to 4 L, her pulse ox is 92-93%, afebrile, blood and sputum cultures have been sent, and are pending at this time. Today's lab work has been reviewed, showing white blood cell count is 29, hemoglobin is 12.4, electrolytes were within normal limits, B1 is 21, creatinine 0.67. Remains on empiric antibiotics in the form of azithromycin and ceftriaxone, and high-dose steroids. The patient is seen today 05/02/2019 in follow-up on the regular medical floor. She is still having shortness of breath with cough and congestion. Still not quite back to her baseline. She is a bit better today compared to yesterday. She's afebrile. Hemodynamically stable. Maintain O2 saturations in the 90s on 2 L/m per nasal cannula. The patient is seen today 05/03/2019 in follow-up on the regular medical floor. She is awake and alert in no acute distress. She's been up ambulating. Up in the shower. Feeling better compared to yesterday. Still not quite back to her baseline. Continues with a loose congested cough. Blood culture reveals no growth. Sputum culture reveals Lavern only. White count 33.6. Hemoglobin 14.2. Platelets 827,000. She remains on DuoNeb inhalations, Pulmicort and Perforomist inhalations, IV Solu-Medrol, antibiotics in the form of ceftriaxone and azithromycin. The patient is seen today 05/04/2018 in follow-up on the regular medical floor. She is awake and alert in no acute distress. Resting comfortably in bed. Improved today compared to yesterday. She is maintaining good O2 saturations in the 90s on 2 L/m per nasal cannula. Blood cultures reveal no growth. White count 31.2. Platelet count 774,000. Hemoglobin 13.3. She remains on ceftriaxone and azithromycin along with bronchodilators and steroids. Objective - Vital Signs Vital signs: Vital Signs Temp 98.1 F 05/04/19 08:00 Pulse 100 05/04/19 08:56 Resp 18 05/04/19 08:00 BP 173/80 05/04/19 08:00 Pulse Ox 97 05/04/19 08:00 Intake & Output 05/03/19 05/04/19 05/04/19 18:59 06:59 18:59 Intake Total 1460 240 Balance 1460 240 Weight 82.8 kg 84.1 kg Intake: Intake, IV Titration 500 Amount Sodium Chloride 0.9% 1, 500 000 ml @ 100 mls/hr IV . Q10H [facility] Rx#:[id number] Oral 960 240 Other: Voiding Method Toilet Toilet Toilet # Voids 3 1 - Exam GENERAL EXAM: Alert, pleasant 83-year-old female patient, comfortable in no apparent distress. On 2 L nasal cannula. HEAD: Normocephalic. EYES: Normal reaction of pupils, equal size. NOSE: Clear with pink turbinates. THROAT: No erythema or exudates. NECK: No masses, no JVD. CHEST: No chest wall deformity. LUNGS: Equal air entry with crackles in the right base, diminished. CVS: S1 and S2 normal with no audible murmur, regular rhythm. ABDOMEN: No hepatosplenomegaly, normal bowel sounds, no guarding or rigidity. SPINE: No scoliosis or deformity SKIN: No rashes CENTRAL NERVOUS SYSTEM: No focal deficits, tone is normal in all 4 extremities. EXTREMITIES: There is no peripheral edema. No clubbing, no cyanosis. Peripheral pulses are intact. - Labs CBC & Chem 7: 05/04/19 10:28 05/01/19 05:10 Labs: Abnormal Lab Results - Last 24 Hours (Table) 05/03/19 05/03/19 05/03/19 Range/Units 12:07 17:16 20:32 WBC (3.8-10.6) k/uL Plt Count (150-450) k/uL Neutrophils # (1.3-7.7) k/uL Lymphocytes # (1.0-4.8) k/uL Basophils # (0-0.2) k/uL POC Glucose (mg/dL) 126 H 205 H 143 H (75-99) mg/dL 05/04/19 05/04/19 Range/Units 06:07 10:28 WBC 31.2 H (3.8-10.6) k/uL Plt Count 774 H (150-450) k/uL Neutrophils # 29.1 H (1.3-7.7) k/uL Lymphocytes # 0.8 L (1.0-4.8) k/uL Basophils # 0.5 H (0-0.2) k/uL POC Glucose (mg/dL) 126 H (75-99) mg/dL Microbiology - Last 24 Hours (Table) 04/28/19 16:57 Blood Culture - Preliminary Blood No Growth after 120 hours 04/28/19 11:33 Blood Culture - Preliminary Blood No Growth after 120 hours Assessment and Plan Assessment: 1 acute hypoxic respiratory failure secondary to an acute right lower lobe pneumonia, community-acquired. 2 acute exacerbation of chronic obstructive pulmonary disease secondary to above. 3 leukocytosis secondary to above. 4 history of pseudomonas aeruginosa in bronchial washings in August 2018. 5 hypertension 6 thrombocytosis Plan: The patient was seen and evaluated by Dr. Richardson. We will continue the current treatment plan. We'll continue to follow and make further recommendations based on her clinical status. Probable discharge in the a.m. I, the cosigning physician, performed a history & physical examination of the patient. Lungs sounds with crackles in the right base, diminished. Maintaining good O2 saturations in the 90s on 2 L nasal cannula. I discussed the assessment and plan of care with my nurse practitioner, Teresa Alejandro. I attest to the above note as dictated by her.
[2019-05-04 12:24] LABS: Glucose,Whole Blood 142 mg/dL (75-99)
[2019-05-04] MEDS: FLUCONAZOLE 100 MG TAB PO SCH (13:01)
[2019-05-04 16:49] LABS: Glucose,Whole Blood 121 mg/dL (75-99)
[2019-05-04] MEDS: guaiFENesin-Coden 100-10MG/5ML 10 ML CUP PO PRN (19:22)
[2019-05-04 20:16] LABS: Glucose,Whole Blood 186 mg/dL (75-99)
[2019-05-04] MEDS: LOSARTAN 50 MG TAB PO SCH (21:22)
[2019-05-05 06:00] LABS: Glucose,Whole Blood 149 mg/dL (75-99)
[2019-05-05 06:00] LABS: HCT 39.2 % (34.0-46.0); HGB 12.9 gm/dL (11.4-16.0); MCH 30.7 pg (25.0-35.0); MCHC 32.8 g/dL (31.0-37.0); MCV 93.4 fL (80.0-100.0); Mean Platelet Volume 6.6; Platelet Count 710 k/uL (150-450); RDW 12.9 % (11.5-15.5); WBC 31.8 k/uL (3.8-10.6)
[2019-05-05 06:12] LABS: African American GFR (CKD) >90 (>60 ml/min/1.73 sqM); Anion Gap 7 mmol/L; Blood Urea Nitrogen 27 mg/dL (7-17); Carbon Dioxide 28 mmol/L (22-30); Chloride 100 mmol/L (98-107); Glucose 173 mg/dL (74-99); Non-African American GFR(CKD) 82 (>60 ml/min/1.73 sqM); Potassium 4.3 mmol/L (3.5-5.1); Sodium 135 mmol/L (137-145)
[2019-05-05] MEDS: methylPREDNISolone SOD SUCCI 125 MG/2 ML VIAL IV SCH (06:44)
[2019-05-05] MEDS: POLYMYXIN B-TRIMETHOPRIM SULF (10,000-1) OPHTH DROPS 10 ML BTL BOTH EYES SCH (06:45)
[2019-05-05] MEDS: PANTOPRAZOLE 40 MG TABLET PO SCH (06:45)
[2019-05-05] MEDS: INSULIN ASPART (NovoLOG) 100 UNIT/ML VIAL SQ SCH (06:45)
[2019-05-05 08:09] VITALS: BP 140/77; PULSE 87; RESP 17; TEMP 97.8
[2019-05-05] MEDS: BUDESONIDE 1 MG/2 ML NEBU INHALATION SCH (09:38)
[2019-05-05] MEDS: IPRATROPIUM-ALBUTEROL 3 ML NEB INHALATION SCH (09:39)
[2019-05-05] MEDS: FORMOTEROL FUMARATE 20 MCG/2 ML NEBU INHALATION SCH (09:39)
[2019-05-05] MEDS: ENOXAPARIN 40 MG/0.4 ML SYRINGE SQ SCH (09:49)
[2019-05-05] MEDS: amLODIPine 10 MG TAB PO SCH (09:50)
[2019-05-05] MEDS: FLUCONAZOLE 100 MG TAB PO SCH (09:50)
[2019-05-05] MEDS: AZITHROMYCIN 500 MG TAB PO SCH (09:50)
[2019-05-05] MEDS: guaiFENesin 600 MG TABLET.ER PO SCH (10:12)
[2019-05-05] MEDS: POLYETHYLENE GLYCOL 3350 17 GM POWD.PACK PO SCH (10:13)
[2019-05-05] MEDS: METOPROLOL TARTRATE 25 MG TAB PO SCH (10:13)
--- NOTE | 2019-05-05 10:39 | P.DS ---
Providers Date of admission: 04/28/19 13:22 Expected date of discharge: 05/05/19 Attending physician: Andres Caicedo MD Consults: 04/28/19 13:22 Consult Physician Routine Consulting Provider: aD Gilbert Consult Reason/Comments: hypoxic respiratory failure Do you want consulting provider notified?: Yes 05/03/19 11:04 Consult Physician Routine Consulting Provider: Mark Crawford Consult Reason/Comments: leukocytosis Do you want consulting provider notified?: Yes Primary care physician: Sanju [facility] Course: Patient is an 83-year-old female with PMH of asthma and COPD, hypertension that presented to the ED after being referred by her resident manager Dr. Gilbert for increasing shortness of breath and productive cough over the last 5-6 days. She also had reports of subjective fevers and chills with pleuritic chest discomfort. She was found to have an oxygen saturation in the low 80s in the pulmonology clinic. In the ED, chest x-ray showed patchy right lower lobe infiltrate. She was noted to have a leukocytosis of 14.1. Influenza was negative. She required supplemental oxygen at 5 L. She was started on azithromycin and Rocephin for treatment of community-acquired pneumonia and admitted for further workup and management. Patient was noted to have sepsis criteria with a leukocytosis of 14.2, positive source of infection seen on chest x-ray, tachycardia with heart rate over 100 on admission. Patient had an echocardiogram that was done in June which showed EF 55-60% with normal wall motion. Sputum culture was collected which was positive for Lavern. Fluconazole was added for treatment of Lavern. Otherwise, her COPD medications were optimized. She was given DuoNeb scheduled and as needed for shortness of breath and wheezing along with formoterol. Robitussin was added for cough. Patient was started on Solu-Medrol and transitioned to prednisone for discharge. He was given supplemental oxygen to maintain O2 saturation greater than 92%. Pulmonology was consulted and followed the patient during the hospitalization. Repeat chest x-ray during hospitalization showed improved aeration in the right infrahilar region. Patient continuously improved throughout hospitalization. She was noted to have lower extremity swelling bilaterally without any pain. This is thought to be secondary to the use of steroids as this was a new complaint. Patient was noted to have a leukocytosis that worsened to 33.6 during her hospitalization. Hematology was consulted, recommended outpatient follow-up. Her leukocytosis was thought to be secondary to steroid use along with infectious cause. Patient was seen and examined prior to discharge. No acute events overnight. Patient reports improvement in her breathing. She has been able to ambulate the hallways without difficulties. Home O2 test performed yesterday patient will require home oxygen. She has a nebulizer at home. She denies any chest pain, shortness of breath or palpitations. No nausea or vomiting. No fever or chills. General: [non toxic], [no distress], [appears at stated age] Derm: [warm], [dry] Head: [atraumatic], [normocephalic], [symmetric] Eyes: [EOMI], [no lid lag], [anicteric sclera] Mouth: [no lip lesion], [mucus membranes moist] Cardiovascular: [S1S2 reg], [ positive DP pulse bilateral] Lungs: [Scattered end expiratory wheezing bilaterally], [no rhonchi, no rales] , [no accessory muscle use] Abdominal: [soft], [ nontender to palpation], [no guarding], [no appreciable organomegaly] Ext: [no gross muscle atrophy], [1+ lower extremity pitting edema], [no contractures] Neuro: [no focal neuro deficits] Psych: [Alert], [oriented], [appropriate affect] Assessment and plan Acute hypoxic respiratory failure due to COPD exacerbation and community- acquired pneumonia Sepsis related to acquired pneumonia Lower extremity swelling Hypertension GERD Leukocytosis Patient is saturating mid 90s on 2 L NC. Most recent chest x-ray shows improved aeration of the right infrahilar region. Echocardiogram in June shows EF 55- 60% with normal wall thickness. Sputum culture positive for Lavern. Plans: Start ceftriaxone and azithromycin for concerns of community-acquired pneumonia. Continue fluconazole for treatment of Lavern. Continue formoterol. Continue Robitussin. DuoNeb scheduled and as needed for shortness of breath and wheezing. Transition Solu-Medrol to prednisone. O2 per NC to maintain O2 saturation greater than 92%. Follow pulmonology recommendations. Patient requires home oxygen. Plans: Management as above. Possibly related to steroid use. Plans: EMANUEL wrap. BP 135/66. Plans: Continue amlodipine and losartan. Restart metoprolol. Monitor vitals, adjust indications as necessary. Plans: Continue Protonix. Leukocytosis of 31.8. With metamyelocytes. Likely related to infectious cause along with steroid use. Plans: Follow hematology consultation. Repeat CBC after resolution of pneumonia. [Patient admitted for COPD exacerbation secondary to community acquired pneumonia. She continues to require oxygen. Not quite at baseline. Likely DC today. Total 7 days fluconazole. Complete a total of 10 days of antibiotics with Levaquin. Patient ALLERGIC to prednisone (hallucination) but states that she has been given this in the past especially with exacerbation of COPD. She has her granddaughter and at home that can take care of her over the next week. Repeat chest x-ray in 3 days. Follow-up PCP within 3 days. Follow-up, neurology within 1 week.] Assessment: Chest x-ray Patient Condition at Discharge: Stable Plan - Discharge Summary Discharge Rx Participant: No New Discharge Prescriptions: New guaiFENesin [Mucinex] 1,200 mg PO Q12HR tablet.er Fluconazole [Diflucan] 100 mg PO DAILY #4 tab Levofloxacin [Levaquin] 750 mg PO DAILY 4 Days #4 tab predniSONE See Taper PO DIRECTED 12 Days #30 tab Continue Losartan Potassium 100 mg PO HS amLODIPine BESYLATE [Norvasc] 10 mg PO DAILY Tiotropium Dunlow [Spiriva] 1 cap INHALATION RT-DAILY Fluticasone/Salmeterol [Advair 500-50 Diskus] 1 puff INHALATION RT-BID Ubidecarenone [Co Q-10] 100 mg PO DAILY Metoprolol Tartrate [Lopressor] 25 mg PO BID Albuterol Nebulized [Ventolin Nebulized] 2.5 mg INHALATION RT-QID Albuterol Sulfate [Proventil Hfa] 1 puff INHALATION RT-BID PRN PRN Reason: Shortness Of Breath Cetirizine HCl [Zyrtec] 10 mg PO DAILY PRN PRN Reason: Allergy Symptoms Zolpidem [Ambien] 5 mg PO HS PRN PRN Reason: Insomnia Discharge Medication List Losartan Potassium 100 mg PO HS 10/30/14 [History] amLODIPine BESYLATE [Norvasc] 10 mg PO DAILY 02/02/18 [History] Fluticasone/Salmeterol [Advair 500-50 Diskus] 1 puff INHALATION RT-BID 06/23/18 [History] Tiotropium Dunlow [Spiriva] 1 cap INHALATION RT-DAILY 06/23/18 [History] Ubidecarenone [Co Q-10] 100 mg PO DAILY 08/07/18 [History] Albuterol Nebulized [Ventolin Nebulized] 2.5 mg INHALATION RT-QID 04/28/19 [History] Albuterol Sulfate [Proventil Hfa] 1 puff INHALATION RT-BID PRN 04/28/19 [History] Cetirizine HCl [Zyrtec] 10 mg PO DAILY PRN 04/28/19 [History] Metoprolol Tartrate [Lopressor] 25 mg PO BID 04/28/19 [History] Zolpidem [Ambien] 5 mg PO HS PRN 04/28/19 [History] Fluconazole [Diflucan] 100 mg PO DAILY #4 tab 05/05/19 [Rx] Levofloxacin [Levaquin] 750 mg PO DAILY 4 Days #4 tab 05/05/19 [Rx] guaiFENesin [Mucinex] 1,200 mg PO Q12HR tablet.er 05/05/19 [Rx] predniSONE See Taper PO DIRECTED 12 Days #30 tab 05/05/19 [Rx] Follow up Appointment(s)/Referral(s): Sanju Ashley MD [Primary Care Provider] - 1-2 days Da Gilbert MD [STAFF PHYSICIAN] - 1 Week Ambulatory/Diagnostic Orders: XR chest 2V [RAD.AMB] Time Frame: 3 Days, Location: None Selected Patient Instructions/Handouts: COPD (Chronic Obstructive Pulmonary Disease) (DC), Pneumonia (DC) Activity/Diet/Wound Care/Special Instructions: Diet: Cardiac Follow-up PCP within 3 days of discharge. Follow-up pulmonology within 1 week of discharge. Take all medications as advised. Come back to the ED or call 911 for worsening shortness of breath, chest pain, dizziness or palpitations. Discharge Disposition: HOME SELF-CARE
--- NOTE | 2019-05-05 12:08 | P.PN ---
Subjective Progress Note Date: 05/05/19 Principal diagnosis: Acute hypoxic respiratory failure secondary to acute right lower lobe pneumonia and acute exacerbation of COPD This is a very pleasant 83-year-old female patient who follows with Dr. Ashley as her primary care physician. She has history of hypertension. She also has a history of chronic obstructive pulmonary disease, upper lobe predominance and follows with Dr. Gilbert in our office for the same. FEV1 is 1.3 L which is 72% of predicted. She is maintained on Advair and Spiriva and albuterol. She is also had pseudomonas aeruginosa on bronchial washings in August 2018. She presented there yesterday with worsening shortness of breath, cough and conge stion. She was found to have a patchy right lower lobe infiltrate/pneumonia. She did have hypoxemia and is currently on 8 L high flow nasal cannula. She is seen today in consultation on the selective care unit. She is currently resting comfortably in bed. Awake and alert in no acute distress. She does have a loose nonproductive cough. Currently afebrile. Hemodynamically stable. White count 20.8. Hemoglobin 12.4. Creatinine 0.73. She has been initiated on DuoNeb inhalations, IV site Medrol, antibiotics in the form of ceftriaxone and azithromycin. Lovenox for DVT prophylaxis. Patient was reevaluated today on 04/30/2019, feeling better, breathing easier, less cough and less wheezing less shortness of breath.remains on high flow nasal cannula however her O2 saturations 98%, and overall the patient is feeling great.however she has leukocytosis with WBC of 28 hemoglobin is 12.3 e lectrolytes are normal renal profile is normal. On 05/01/2019 patient is seen in follow-up. She is resting in bed, still very congested and dyspnea. FiO2 is down to 4 L, her pulse ox is 92-93%, afebrile, blood and sputum cultures have been sent, and are pending at this time. Today's lab work has been reviewed, showing white blood cell count is 29, hemoglobin is 12.4, electrolytes were within normal limits, B1 is 21, creatinine 0.67. Remains on empiric antibiotics in the form of azithromycin and ceftriaxone, and high-dose steroids On 05/05/2019 she seen in follow-up on file to care unit, she is doing much better, less wheezy, less congestion less dyspneic, she is tolerating ambulation in the room, no acute distress, no fever or chills. She is on 2 L of oxygen with a pulse ox 95-100%. White count today is 31.8, and platelet count is 710. Clinically asymptomatic, has been no fever or chills. She has been seen by hematology service who feels that the elevation of the white blood cell count and thrombocythemia are related to reactive process. Blood cultures are negative. Sputum culture showed no growth Objective - Vital Signs Vital signs: Vital Signs Temp 97.8 F 05/05/19 07:57 Pulse 87 05/05/19 07:57 Resp 17 05/05/19 08:00 BP 140/77 05/05/19 07:57 Pulse Ox 100 05/05/19 07:57 Intake & Output 05/04/19 05/05/19 05/05/19 18:59 06:59 18:59 Intake Total 1010 240 Balance 1010 240 Weight 84.1 kg Intake: IV 50 cefTRIAXone 1 gm In 50 Sodium Chloride 0.9% 50 ml @ 100 mls/hr IVPB Q24HR [facility] Rx#:[id number] Oral 960 240 Other: Voiding Method Toilet Toilet Toilet # Voids 1 2 # Bowel Movements 0 1 - Exam GENERAL EXAM: Alert, very pleasant, 83-year-old -Indian female, currently on 2 L of oxygen with a pulse ox of 100%, comfortable in no apparent distress. HEAD: Normocephalic/atraumatic. EYES: Normal reaction of pupils, equal size. Conjunctiva pink, sclera white. NOSE: Clear with pink turbinates. THROAT: No erythema or exudates. NECK: No masses, no JVD, no thyroid enlargement, no adenopathy. CHEST: No chest wall deformity. Symmetrical expansion. LUNGS: Equal air entry with minimal wheezes CVS: Regular rate and rhythm, normal S1 and S2, no gallops, no murmurs, no rubs ABDOMEN: Soft, nontender. No hepatosplenomegaly, normal bowel sounds, no guarding or rigidity. EXTREMITIES: No clubbing, no edema, no cyanosis, 2+ pulses and upper and lower extremities. MUSCULOSKELETAL: Muscle strength and tone normal. SPINE: No scoliosis or deformity SKIN: No rashes CENTRAL NERVOUS SYSTEM: Alert and oriented -3. No focal deficits, tone is normal in all 4 extremities. PSYCHIATRIC: Alert and oriented -3. Appropriate affect. Intact judgment and insight. - Labs CBC & Chem 7: 05/05/19 05:47 05/05/19 05:47 Labs: Abnormal Lab Results - Last 24 Hours (Table) 05/04/19 05/04/19 05/04/19 Range/Units 12:13 16:44 20:14 WBC (3.8-10.6) k/uL Plt Count (150-450) k/uL Sodium (137-145) mmol/L BUN (7-17) mg/dL Glucose (74-99) mg/dL POC Glucose (mg/dL) 142 H 121 H 186 H (75-99) mg/dL 05/05/19 05/05/19 05/05/19 Range/Units 05:47 05:47 05:58 WBC 31.8 H (3.8-10.6) k/uL Plt Count 710 H (150-450) k/uL Sodium 135 L (137-145) mmol/L BUN 27 H (7-17) mg/dL Glucose 173 H (74-99) mg/dL POC Glucose (mg/dL) 149 H (75-99) mg/dL Microbiology - Last 24 Hours (Table) 04/28/19 16:57 Blood Culture - Final Blood No Growth after 144 hours 04/28/19 11:33 Blood Culture - Final Blood No Growth after 144 hours Assessment and Plan Plan: Assessment: 1 acute hypoxic respiratory failure secondary to an acute right lower lobe pneumonia, community-acquired. 2 acute exacerbation of chronic obstructive pulmonary disease secondary to above. 3 leukocytosis secondary to above. 4 history of pseudomonas aeruginosa in bronchial washings in August 2018. 5 hypertension Plan: Patient is improving, less short of breath, less bronchospastic, tolerating ambulation, blood and sputum cultures remain negative, no fever or chills, and pulmonary perspective she stable for discharge home today, follow up with Dr. Gilbert in the office 1-2 weeks I performed a history & physical examination of the patient and discussed their management with my nurse practitioner, Lori Walker. I reviewed the nurse practitioner's note and agree with the documented findings and plan of care. Lung sounds are positive for diffuse wheezes and rhonchi. The findings and the impression was discussed with the patient. I attest to the documentation by the nurse practitioner. Time with Patient: Less than 30
== END 2019-05-05 11:45 | disposition home health service (06) | DRG 871 ==
LOC: EC 10:31 → 3SCARD 13:22
PROVIDERS: ADMIT Family Medicine; ATTEND Family Medicine
DX: A41.9 Sepsis, unspecified organism (principal); J18.9 Pneumonia, unspecified organism; J96.01 Acute respiratory failure with hypoxia; J44.0 Chronic obstructive pulmonary disease with (acute) lower respiratory infection; J44.1 Chronic obstructive pulmonary disease with (acute) exacerbation; J45.41 Moderate persistent asthma with (acute) exacerbation; K76.89 Other specified diseases of liver; D47.3 Essential (hemorrhagic) thrombocythemia; I10 Essential (primary) hypertension; I25.2 Old myocardial infarction; K21.9 Gastro-esophageal reflux disease without esophagitis; K59.00 Constipation, unspecified; H93.13 Tinnitus, bilateral; K44.9 Diaphragmatic hernia without obstruction or gangrene; K57.90 Diverticulosis of intestine, part unspecified, without perforation or abscess without bleeding; M19.90 Unspecified osteoarthritis, unspecified site; D72.829 Elevated white blood cell count, unspecified; T38.0X5A Adverse effect of glucocorticoids and synthetic analogues, initial encounter; Z79.82 Long term (current) use of aspirin; Z79.899 Other long term (current) drug therapy; Z99.81 Dependence on supplemental oxygen; Z90.710 Acquired absence of both cervix and uterus; Z87.891 Personal history of nicotine dependence; Z87.11 Personal history of peptic ulcer disease; Z88.5 Allergy status to narcotic agent; Z88.8 Allergy status to other drugs, medicaments and biological substances; Z90.49 Acquired absence of other specified parts of digestive tract; Z86.010 Personal history of colon polyps; Z82.5 Family history of asthma and other chronic lower respiratory diseases; Z80.1 Family history of malignant neoplasm of trachea, bronchus and lung; Z80.0 Family history of malignant neoplasm of digestive organs; Z80.42 Family history of malignant neoplasm of prostate
CPT/HCPCS: 36415; 36600; 71045; 71046; 80048; 80053; 81003; 82805; 83605; 83735; 83880; 84145; 84484; 85025; 85027; 85610; 85730; 87040; 87070; 87205; 87449; 87502; 93005; 94640; 94760; 96365; 96375; 99285

== ENCOUNTER → 2019-05-08 | Outpatient (CLI) | payer MEDICARE, BC ==
--- NOTE | 2019-05-08 15:25 | XR ---
EXAMINATION TYPE: XR chest 2V DATE OF EXAM: 05/08/2019 COMPARISON: 05/01/2019 HISTORY: Shortness of breath TECHNIQUE: Frontal and lateral views of the chest are obtained. FINDINGS: Scattered senescent parenchymal changes noted. Hyperinflation compatible with COPD. No evidence for infiltrate. No evidence for atelectasis. Heart size is stable. Mediastinal structures are stable and grossly unremarkable. No evidence for hilar prominence. Degenerative changes dorsal spine. IMPRESSION: 1. No evidence for acute pulmonary disease.
== END | disposition home or self-care (01) ==
LOC: RADXRMAIN 14:36
PROVIDERS: ATTEND Family Medicine
DX: J18.9 Pneumonia, unspecified organism (principal)
CPT/HCPCS: 71046

== ENCOUNTER 2019-06-21 08:14 | Day surgery (SDC) | payer MEDICARE, BC ==
[2019-06-16 14:30] VITALS: BMI 25.8
[~2019-06-21 08:14] MED LIST changes: -ALBUTEROL NEB (CONC) 2.5 MG/0.5 ML INHALATION ONE; -LACTATED RINGERS 1,000 ML IV ONE; +LACTATED RINGERS 1,000 ML IV SCH; -LIDOCAINE 2% (PF) 20 MG/ML 5 ML VIAL INHALATION ONE; -LIDOCAINE VISCOUS 2% 15 ML CUP MUCOUS MEM ONE; +MORPHINE SULFATE 4 MG/ML SYRINGE IV PRN; +MOXIFLOXACIN HCL 0.5% DROPS 3 ML BTL OP ONE; +ONDANSETRON 4 MG/2 ML VIAL IVP ONE; +TETRACAINE 0.5% OPHTH (PF) DROPS 4 ML BTL OP ONE; +TIMOLOL 0.5% OPHTH DROPS 5 ML BTL OP ONE
[2019-06-21] MEDS: CYCLOPENTOLATE 1% OPHTH SOLN 2 ML BTL OP ONE ×3 (08:46→09:03)
[2019-06-21 08:48] VITALS: RESP 16; TEMP 98.8
[2019-06-21] MEDS: PHENYLEPHRINE 2.5% OPHTH DRP 2ML OP NR ×3 (08:51→09:06)
[2019-06-21] MEDS ORDERED: MIDAZOLAM 2 MG/2 ML VIAL ONE (09:26)
[2019-06-21] MEDS ORDERED: fentaNYL (PF) 50 MCG/ML 2 ML AMP ONE (09:26)
[2019-06-21] MEDS ORDERED: HYALURONATE SODIUM INTRAOCULAR 1 EACH SYRINGE (12MG/ML) INTRAOCULA ONE (09:29)
[2019-06-21] MEDS ORDERED: BALANCED SALT IRRIG SOLN COMB2 15 ML IRRIG.SOLN IRRIGATION ONE (09:29)
[2019-06-21] MEDS ORDERED: LIDOCAINE 1% (PF) 10MG/ML VIAL SQ ONE (09:29)
[2019-06-21] MEDS ORDERED: EPINEPHrine (PF) 0.3 ML in BALANCED SALT IRRIG SOLN COMB2 500 ML IRRIGATION ONE (09:30)
--- NOTE | 2019-06-21 09:59 | P.OP ---
Date of Procedure: 06/21/19 Preoperative Diagnosis: NS Postoperative Diagnosis: same Procedure(s) Performed: PIOL, OD Implants: [id number] 19.50 Anesthesia: MAC Surgeon: Uzair Gaviria Estimated Blood Loss (ml): 0 Pathology: none sent Condition: stable Disposition: observation Indications for Procedure: blurry vision Operative Findings: no complications
[2019-06-21 10:22] VITALS: BP 126/78; PULSE 64
--- NOTE | 2019-06-22 00:07 | OP ---
OPERATIVE REPORT DATE OF SURGERY: June 21, 2019. PROCEDURES: Phacoemulsification of cataract and intraocular lens implant of the right eye. LATENT FINGERPRINT EXAMINER: @@ PREOPERATIVE DIAGNOSIS: Nuclear sclerosis. POSTOPERATIVE DIAGNOSIS: Nuclear sclerosis. OPERATION: Clear cornea phacoemulsification of cataract OD eye. ESTIMATED BLOOD LOSS: Zero. SPECIMEN TAKEN: None. NARRATIVE: After obtaining the appropriate consent, the patient was brought to the Operating Room where the patient was placed under cardiac monitoring and prepped and draped in the usual sterile manner. At the 11 o'clock position a 15 degree super sharp blade was used to create a paracentesis followed by instillation of 1% Xylocaine MPF 50:50 mix with BSS into the anterior chamber. This was followed by Amvisc to stabilize the anterior chamber. At the 9 o'clock position a self-sealing corneal flap incision was created using 2.8 mm priya keratome. A cystotome was used to initiate a continuous tear capsulorrhexis which was completed with the Utrata forceps. A Binkhorst cannula was used to hydrodissect the lens nucleus followed by hydrodelineation. Phacoemulsification of the lens was performed utilizing phacochop in 21 seconds at 16% power. The remaining cortical material was removed using the irrigation aspiration mode followed by additional 1% Xylocaine MPF into the anterior chamber followed by viscoelastic to stabilize the capsular bag. A [employer] MX60E 19.5 diopter posterior chamber lens was placed into the capsular bag without difficulty. The remaining viscoelastic material was removed from the anterior chamber with the irrigation/aspiration. Balanced salt solution was used to normalize the intraocular pressure. The incision was checked for watertight integrity. The patient then received two drops of 0.5% timolol followed by two drops Vigamox, was lightly patched and shielded in the usual manner. There were no complications from the procedure. The patient tolerated the procedure well and was returned to recovery in good condition. MMODL / IJN: [id number] /
== END 2019-06-21 10:39 | disposition home or self-care (01) ==
LOC: OR 08:14
PROVIDERS: ATTEND Ophthalmology
DX: H25.13 Age-related nuclear cataract, bilateral (principal); H10.31 Unspecified acute conjunctivitis, right eye; H04.123 Dry eye syndrome of bilateral lacrimal glands; H43.812 Vitreous degeneration, left eye; H00.023 Hordeolum internum right eye, unspecified eyelid; H25.011 Cortical age-related cataract, right eye; H25.041 Posterior subcapsular polar age-related cataract, right eye; H53.19 Other subjective visual disturbances; H25.042 Posterior subcapsular polar age-related cataract, left eye; H52.4 Presbyopia; H52.223 Regular astigmatism, bilateral; H52.03 Hypermetropia, bilateral; I10 Essential (primary) hypertension; J44.9 Chronic obstructive pulmonary disease, unspecified; J45.909 Unspecified asthma, uncomplicated; Z87.01 Personal history of pneumonia (recurrent); Z90.710 Acquired absence of both cervix and uterus; Z90.49 Acquired absence of other specified parts of digestive tract; Z99.81 Dependence on supplemental oxygen; Z80.51 Family history of malignant neoplasm of kidney; Z80.0 Family history of malignant neoplasm of digestive organs; Z82.49 Family history of ischemic heart disease and other diseases of the circulatory system; Z87.891 Personal history of nicotine dependence; Q61.02 Congenital multiple renal cysts; Z09 Encounter for follow-up examination after completed treatment for conditions other than malignant neoplasm; Z97.2 Presence of dental prosthetic device (complete) (partial); Z79.899 Other long term (current) drug therapy; Z88.5 Allergy status to narcotic agent; Z88.8 Allergy status to other drugs, medicaments and biological substances
CPT/HCPCS: 66984; C1780; J2250; J0171; J3010; J2001

== ENCOUNTER 2020-04-24 09:47 | Day surgery (SDC) | payer BC, MEDICARE ==
[2020-04-22 12:06] VITALS: BMI 28.5
[~2020-04-24 09:47] MED LIST changes: -LIDOCAINE 1% 20 ML VIAL (10MG/ML) FOR IV START INTRADERMA PRN; -MORPHINE SULFATE 4 MG/ML SYRINGE IV PRN; -ONDANSETRON 4 MG/2 ML VIAL IVP ONE
[2020-04-24 10:57] VITALS: TEMP 98.6
[2020-04-24] MEDS: CYCLOPENTOLATE 1% OPHTH SOLN 2 ML BTL OP ONE ×3 (11:00→11:16)
[2020-04-24] MEDS ORDERED: LIDOCAINE 1% (10MG/ML) FOR IV START INTRADERMA ONE (11:05)
[2020-04-24] MEDS: PHENYLEPHRINE 2.5% OPHTH DRP 2ML OP NR ×3 (11:05→11:20)
[2020-04-24] MEDS ORDERED: MIDAZOLAM 2 MG/2 ML VIAL ONE (11:51)
[2020-04-24] MEDS ORDERED: fentaNYL (PF) 50 MCG/ML 2 ML AMP ONE (11:51)
[2020-04-24] MEDS ORDERED: HYALURONATE SODIUM INTRAOCULAR 1 EACH SYRINGE (12MG/ML) INTRAOCULA ONE (12:07)
[2020-04-24] MEDS ORDERED: EPINEPHrine (PF) 0.3 ML in BALANCED SALT IRRIG SOLN COMB2 500 ML IRRIGATION ONE (12:07)
[2020-04-24] MEDS ORDERED: LIDOCAINE 1% (PF) 10MG/ML VIAL MISCELLANE ONE (12:07)
[2020-04-24] MEDS ORDERED: BALANCED SALT IRRIG SOLN COMB2 15 ML IRRIG.SOLN IRRIGATION ONE (12:07)
--- NOTE | 2020-04-24 12:28 | P.OP ---
Date of Procedure: 04/24/20 Preoperative Diagnosis: NS & CS & PSC Postoperative Diagnosis: same Procedure(s) Performed: PIOL, OS Implants: MX60 19.50 Anesthesia: MAC Surgeon: Uzair Gaviria Pathology: none sent Condition: stable Disposition: same day Indications for Procedure: blurry vision Operative Findings: no complications
[2020-04-24 13:06] VITALS: BP 122/70; PULSE 64; RESP 16
--- NOTE | 2020-04-25 01:16 | OP ---
OPERATIVE REPORT DATE OF SURGERY: April 24, 2020. SURGEON: Dr. Uzair Gaviria PREOPERATIVE DIAGNOSIS: Nuclear sclerosis, cortical sclerosis, posterior subcapsular cataract. POSTOPERATIVE DIAGNOSIS: Nuclear sclerosis, cortical sclerosis, posterior subcapsular cataract. OPERATION: Phacoemulsification of cataract and intraocular lens implant of the left eye. ESTIMATED BLOOD LOSS: Zero. SPECIMEN TAKEN: None. NARRATIVE: After obtaining the appropriate consent, the patient was brought to the Operating Room where the patient was placed under cardiac monitoring and prepped and draped in the usual sterile manner. At the 5 o'clock position a 15 degree super sharp blade was used to create a paracentesis followed by instillation of 1% Xylocaine MPF 50:50 mix with BSS into the anterior chamber. This was followed by Amvisc to stabilize the anterior chamber. At the 3 o'clock position a self-sealing corneal flap incision was created using 2.8 mm priya keratome. A cystotome was used to initiate a continuous tear capsulorrhexis which was completed with the Utrata forceps. A Binkhorst cannula was used to hydrodissect the lens nucleus followed by hydrodelineation. Phacoemulsification of the lens was performed utilizing phaco chop in 20.88 seconds at 17% power. The remaining cortical material was removed using the irrigation aspiration mode followed by additional 1% Xylocaine MPF into the anterior chamber followed by viscoelastic to stabilize the capsular bag. A [employer] MX60E 19.5 diopters posterior chamber lens was placed into the capsular bag without difficulty. The remaining viscoelastic material was removed from the anterior chamber with the irrigation/aspiration. Balanced salt solution was used to normalize the intraocular pressure. The incision was checked for watertight integrity. The patient then received two drops of 0.5% timolol followed by two drops Vigamox, was lightly patched and shielded in the usual manner. There were no complications from the procedure. The patient tolerated the procedure well and was returned to recovery in good condition. MMODL / IJN: [id number] /
== END 2020-04-24 13:16 | disposition home or self-care (01) ==
LOC: OR 09:47
PROVIDERS: ATTEND Ophthalmology
DX: H25.812 Combined forms of age-related cataract, left eye (principal); H04.123 Dry eye syndrome of bilateral lacrimal glands; H00.023 Hordeolum internum right eye, unspecified eyelid; H43.812 Vitreous degeneration, left eye; H00.026 Hordeolum internum left eye, unspecified eyelid; H53.19 Other subjective visual disturbances; H52.4 Presbyopia; H52.223 Regular astigmatism, bilateral; H52.03 Hypermetropia, bilateral; I10 Essential (primary) hypertension; E78.5 Hyperlipidemia, unspecified; J44.9 Chronic obstructive pulmonary disease, unspecified; Z79.51 Long term (current) use of inhaled steroids; Z88.5 Allergy status to narcotic agent; Z88.8 Allergy status to other drugs, medicaments and biological substances; Z79.899 Other long term (current) drug therapy; Z90.710 Acquired absence of both cervix and uterus; Z90.49 Acquired absence of other specified parts of digestive tract; Z98.890 Other specified postprocedural states; Z87.01 Personal history of pneumonia (recurrent); Z80.1 Family history of malignant neoplasm of trachea, bronchus and lung; Z82.49 Family history of ischemic heart disease and other diseases of the circulatory system; Z82.3 Family history of stroke; Z87.891 Personal history of nicotine dependence; Z97.3 Presence of spectacles and contact lenses; Z96.1 Presence of intraocular lens; Z98.41 Cataract extraction status, right eye
CPT/HCPCS: 66984; C1780; J2250; J0171; J3010; J2001

== ENCOUNTER → 2020-10-10 | Outpatient (CLI) | payer MEDICARE, BC ==
--- NOTE | 2020-10-10 14:22 | US ---
EXAMINATION TYPE: US venous doppler duplex UE LT DATE OF EXAM: 10/10/2020 COMPARISON: NONE CLINICAL HISTORY: R60.9 Edema LUE. Pt states left arm swelling SIDE PERFORMED: Left Left Arm: Negative for DVT IMPRESSION: Grayscale, color doppler, spectral doppler imaging performed of the deep veins of the upper extremiti es. There is normal flow, compressability and vascular waveforms.
== END | disposition home or self-care (01) ==
LOC: RADUSWWP 13:44
PROVIDERS: ATTEND Internal Medicine Geriatric Medicine
DX: R60.9 Edema, unspecified (principal)

== ENCOUNTER 2020-12-04 21:34 | Inpatient (IN) | payer MEDICARE, BC ==
[2020-12-04] MEDS ORDERED: ACETAMINOPHEN TAB 500 MG TAB PO STA (22:09)
[2020-12-04] MEDS ORDERED: SODIUM CHLORIDE 0.9% 1,000 ML IV STA (22:09)
[2020-12-04] MEDS ORDERED: SODIUM CHLORIDE 0.9% 500 ML 500 ML IV STA (22:09)
[2020-12-04] MEDS ORDERED: IBUPROFEN 800 MG TAB PO STA (22:09)
--- NOTE | 2020-12-04 22:11 | ED ---
Fever HPI - General Chief Complaint: Chest Pain Stated Complaint: Body aches,Cough Time Seen by Provider: 12/04/20 22:04 Source: patient, RN notes reviewed, old records reviewed Mode of arrival: wheelchair Limitations: no limitations - History of Present Illness Initial Comments: This is a 32-year-old female DF for evaluation she presents today for a couple complaints chest pain but is noted to have fever sweating weakness. She has have also shortness of breath for weeks does have severe COPD. No travel history. Multiple recent hospital admissions. No known sick contacts. Patient states she does feel heaviness on her chest MD Complaint: fever, malaise, weakness, other (Shortness of breath and chest pain) -: week(s) Temperature Source: subjective Context: sick contacts Associated Symptoms: myalgias, cough, shortness of breath, nausea, vomiting Treatments Prior to Arrival: none - Related Data Home Medications Medication Instructions Recorded Confirmed Losartan Potassium 100 mg PO DAILY 10/30/14 12/04/20 amLODIPine BESYLATE [Norvasc] 10 mg PO DAILY 02/02/18 12/04/20 Albuterol Nebulized [Ventolin 2.5 mg INHALATION RT-QID PRN 04/28/19 12/04/20 Nebulized] Metoprolol Tartrate [Lopressor] 25 mg PO DAILY 04/28/19 12/04/20 Aspirin EC [Ecotrin Low Dose] 81 mg PO DAILY 12/04/20 12/04/20 Fluticasone Propion/Salmeterol 1 puff INHALATION RT-BID PRN 12/04/20 12/04/20 [Wixela 500-50 Inhub] Allergies Allergy/AdvReac Type Severity Reaction Status Date / Time hydrocodone bitartrate AdvReac states Verified 12/04/20 23:23 [From Vicodin] "doesn't make me feel good" prednisone AdvReac Hallucinati Verified 12/04/20 23:23 ons Review of Systems ROS Statement: Those systems with pertinent positive or pertinent negative responses have been documented in the HPI. ROS Other: All systems not noted in ROS Statement are negative. Past Medical History Past Medical History: Asthma, COPD, Eye Disorder, Hearing Disorder / Deafness, Hyperlipidemia, Hypertension, Liver Disease, Osteoarthritis (OA) Additional Past Medical History / Comment(s): Hx stomach ulcer, cysts on liver >20 years, urinary leakage, small hiatal hernia, diverticulosis, tinnitus bila teral ears, left cataract, Pneumonia 2018. Uses Oxygen PRN. Last Myocardial Infarction Date:: 40 years ago History of Any Multi-Drug Resistant Organisms: None Reported Past Surgical History: Cholecystectomy, Hysterectomy, Orthopedic Surgery Additional Past Surgical History / Comment(s): KNEE arthroscopy-UNSURE WHICH SIDE, COLONOSCOPY-LARGE POLYP REMOVED, EGD, right cataract removed. Past Anesthesia/Blood Transfusion Reactions: No Reported Reaction Additional Past Anesthesia/Blood Transfusion Reaction / Comment(s): No hx blood transfusion. Past Psychological History: No Psychological Hx Reported Smoking Status: Former smoker Past Alcohol Use History: Occasional Past Drug Use History: None Reported - Past Family History Sister(s) Family Medical History: Cancer Additional Family Medical History / Comment(s): #1 sister colon cancer, # 2 sister lung cancer. Father Family Medical History: Cancer Additional Family Medical History / Comment(s): Prostate cancer. Mother Family Medical History: Asthma Additional Family Medical History / Comment(s): Heart problems. General Exam Limitations: no limitations General appearance: alert, in no apparent distress, anxious, cachectic Head exam: Present: atraumatic, normocephalic, normal inspection Eye exam: Present: normal appearance, PERRL, EOMI. Absent: scleral icterus, conjunctival injection, periorbital swelling ENT exam: Present: normal exam, mucous membranes dry Neck exam: Present: normal inspection. Absent: tenderness, meningismus, lymphadenopathy Respiratory exam: Present: respiratory distress, wheezes, accessory muscle use, decreased breath sounds, prolonged expiratory. Absent: rales, rhonchi, stridor Cardiovascular Exam: Present: normal rhythm, tachycardia, normal heart sounds. Absent: systolic murmur, diastolic murmur, rubs, gallop, clicks GI/Abdominal exam: Present: soft, normal bowel sounds. Absent: distended, tenderness, guarding, rebound, rigid Extremities exam: Present: normal inspection, full ROM, normal capillary refill. Absent: tenderness, pedal edema, joint swelling, calf tenderness Back exam: Present: normal inspection Neurological exam: Present: alert, oriented X3, CN II-XII intact Psychiatric exam: Present: normal affect, normal mood Skin exam: Present: warm, dry, intact, normal color. 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 We'll treat for pneumonia, place on antibiotics fever control symptom management. Breathing treatments as needed - Lab Data Result diagrams: 12/04/20 22:34 12/04/20 22:34 Lab Results 12/04/20 12/04/20 12/04/20 Range/Units 22:34 22:34 22:34 WBC 7.7 (3.8-10.6) k/uL RBC 5.06 (3.80-5.40) m/uL Hgb 14.9 (11.4-16.0) gm/dL Hct 47.1 H (34.0-46.0) % MCV 93.2 (80.0-100.0) fL MCH 29.5 (25.0-35.0) pg MCHC 31.7 (31.0-37.0) g/dL RDW 13.0 (11.5-15.5) % Plt Count 341 (150-450) k/uL MPV 7.6 Neutrophils % 75 % Lymphocytes % 14 % Monocytes % 6 % Eosinophils % 2 % Basophils % 1 % Neutrophils # 5.8 (1.3-7.7) k/uL Lymphocytes # 1.1 (1.0-4.8) k/uL Monocytes # 0.5 (0-1.0) k/uL Eosinophils # 0.2 (0-0.7) k/uL Basophils # 0.1 (0-0.2) k/uL PT 10.1 (9.0-12.0) sec INR 0.9 (<1.2) APTT 22.8 (22.0-30.0) sec Sodium (137-145) mmol/L Potassium (3.5-5.1) mmol/L Chloride (98-107) mmol/L Carbon Dioxide (22-30) mmol/L Anion Gap mmol/L BUN (7-17) mg/dL Creatinine (0.52-1.04) mg/dL Est GFR (CKD-EPI)AfAm (>60 ml/min/1.73 sqM) Est GFR (CKD-EPI)NonAf (>60 ml/min/1.73 sqM) Glucose (74-99) mg/dL Plasma Lactic Acid Jace (0.7-2.0) mmol/L Calcium (8.4-10.2) mg/dL Magnesium (1.6-2.3) mg/dL Total Bilirubin (0.2-1.3) mg/dL AST (14-36) U/L ALT (4-34) U/L Alkaline Phosphatase (38-126) U/L Lactate Dehydrogenase (313-618) U/L Troponin I <0.012 (0.000-0.034) ng/mL C-Reactive Protein (<1.0) mg/dL Total Protein (6.3-8.2) g/dL Albumin (3.5-5.0) g/dL Coronavirus (PCR) (Not Detectd) 12/04/20 12/04/20 12/04/20 Range/Units 22:34 22:34 23:34 WBC (3.8-10.6) k/uL RBC (3.80-5.40) m/uL Hgb (11.4-16.0) gm/dL Hct (34.0-46.0) % MCV (80.0-100.0) fL MCH (25.0-35.0) pg MCHC (31.0-37.0) g/dL RDW (11.5-15.5) % Plt Count (150-450) k/uL MPV Neutrophils % % Lymphocytes % % Monocytes % % Eosinophils % % Basophils % % Neutrophils # (1.3-7.7) k/uL Lymphocytes # (1.0-4.8) k/uL Monocytes # (0-1.0) k/uL Eosinophils # (0-0.7) k/uL Basophils # (0-0.2) k/uL PT (9.0-12.0) sec INR (<1.2) APTT (22.0-30.0) sec Sodium 141 (137-145) mmol/L Potassium 3.8 (3.5-5.1) mmol/L Chloride 105 (98-107) mmol/L Carbon Dioxide 28 (22-30) mmol/L Anion Gap 8 mmol/L BUN 16 (7-17) mg/dL Creatinine 0.76 (0.52-1.04) mg/dL Est GFR (CKD-EPI)AfAm 84 (>60 ml/min/1.73 sqM) Est GFR (CKD-EPI)NonAf 73 (>60 ml/min/1.73 sqM) Glucose 111 H (74-99) mg/dL Plasma Lactic Acid Jace 1.5 (0.7-2.0) mmol/L Calcium 9.8 (8.4-10.2) mg/dL Magnesium 2.3 (1.6-2.3) mg/dL Total Bilirubin 0.2 (0.2-1.3) mg/dL AST 30 (14-36) U/L ALT 21 (4-34) U/L Alkaline Phosphatase 123 (38-126) U/L Lactate Dehydrogenase 657 H (313-618) U/L Troponin I (0.000-0.034) ng/mL C-Reactive Protein 0.8 (<1.0) mg/dL Total Protein 6.9 (6.3-8.2) g/dL Albumin 4.4 (3.5-5.0) g/dL Coronavirus (PCR) Not Detected (Not Detectd) - EKG Data -: EKG Interpreted by Me (EKG is sinus tachycardia 111 OK 170 QRS 66 QTc 456) - Radiology Data Radiology results: report reviewed (Chest x-rays negative for acute disease), image reviewed Critical Care Time Critical Care Time: Yes Total Critical Care Time: 31 Disposition Clinical Impression: Chest pain, COPD exacerbation, Pneumonia, Fever Disposition: ADMITTED IP TO THIS HOSP Condition: Fair Is patient prescribed a controlled substance at d/c from ED?: No Referrals: Pepe Shine MD [Primary Care Provider] - 1-2 days
--- NOTE | 2020-12-04 22:44 | XR ---
EXAMINATION TYPE: XR chest 1V portable DATE OF EXAM: 12/04/2020 COMPARISON: 03/07/2020 HISTORY: Pneumonia. Body aches. TECHNIQUE: Single view FINDINGS: Heart is normal. Lungs are clear of infiltrate. There is no heart failure. There are no hil ar masses. Thoracic aorta is atheromatous. Bony thorax is intact. There are chest leads. IMPRESSION: No active cardiopulmonary disease. No change.
[2020-12-04 23:00] LABS: INR 0.9 (<1.2); Partial Thromboplastin Time 22.8 sec (22.0-30.0); Prothrombin Time 10.1 sec (9.0-12.0)
[2020-12-04 23:21] LABS: Basophils # (A) 0.1 k/uL (0-0.2); Basophils % (A) 1 %; Eosinophils # (A) 0.2 k/uL (0-0.7); Eosinophils % (A) 2 %; HCT 47.1 % (34.0-46.0); HGB 14.9 gm/dL (11.4-16.0); Lymphocytes # (A) 1.1 k/uL (1.0-4.8); Lymphocytes % (A) 14 %; MCH 29.5 pg (25.0-35.0); MCHC 31.7 g/dL (31.0-37.0); MCV 93.2 fL (80.0-100.0); Mean Platelet Volume 7.6; Monocytes # (A) 0.5 k/uL (0-1.0); Monocytes % (A) 6 %; Neutrophils # (A) 5.8 k/uL (1.3-7.7); Neutrophils % (A) 75 %; Platelet Count 341 k/uL (150-450); RBC 5.06 m/uL (3.80-5.40); WBC 7.7 k/uL (3.8-10.6)
[2020-12-04 23:38] LABS: Albumin 4.4 g/dL (3.5-5.0); C Reactive Protein 0.8 mg/dL (<1.0); Calcium 9.8 mg/dL (8.4-10.2); Magnesium 2.3 mg/dL (1.6-2.3); Potassium 3.8 mmol/L (3.5-5.1); Total Bilirubin 0.2 mg/dL (0.2-1.3); Total Protein 6.9 g/dL (6.3-8.2)
[2020-12-05] MEDS ORDERED: IPRATROPIUM-ALBUTEROL 3 ML NEB INHALATION STA (00:03)
[2020-12-05] MEDS ORDERED: PNEUMONIA PROTOCOL UTILIZED 1 EACH MISC PO PRN (00:03)
[2020-12-05] MEDS ORDERED: IPRATROPIUM-ALBUTEROL 3 ML NEB INHALATION PRN (00:03)
[2020-12-05] MEDS ORDERED: AZITHROMYCIN 500 MG in SODIUM CHLORIDE 0.9% 250 ML IVPB ONE (00:15)
[2020-12-05] MEDS: AZITHROMYCIN 500 MG in SODIUM CHLORIDE 0.9% 250 ML IVPB ONE ×2 (04:06→06:57)
[2020-12-05] MEDS ORDERED: ALBUTEROL NEBULIZED 2.5 MG/3 ML INHALATION PRN (08:56)
[2020-12-05] MEDS ORDERED: SYMBICORT 160-4.5 MCG INHALER INHALATION PRN (08:56)
[2020-12-05] MEDS: LOSARTAN 50 MG TAB PO SCH (09:24)
[2020-12-05] MEDS: amLODIPine 10 MG TAB PO SCH (09:24)
[2020-12-05] MEDS: ASPIRIN 81 MG PO SCH (09:24)
[2020-12-05] MEDS: METOPROLOL TARTRATE 25 MG TAB PO SCH (09:24)
[2020-12-05] MEDS: SODIUM CHLORIDE 0.9% 1,000 ML IV SCH ×3 (09:25→21:46)
[2020-12-05 09:44] LABS: Ferritin 196.6 ng/mL (10.0-291.0)
[2020-12-05 10:40] LABS: Basophils # (A) 0.1 k/uL (0-0.2); Basophils % (A) 2 %; Eosinophils # (A) 0.2 k/uL (0-0.7); Eosinophils % (A) 4 %; HCT 40.7 % (34.0-46.0); HGB 13.6 gm/dL (11.4-16.0); Lymphocytes # (A) 0.8 k/uL (1.0-4.8); Lymphocytes % (A) 16 %; MCH 31.2 pg (25.0-35.0); MCHC 33.4 g/dL (31.0-37.0); MCV 93.4 fL (80.0-100.0); Mean Platelet Volume 7.2; Monocytes # (A) 0.4 k/uL (0-1.0); Monocytes % (A) 7 %; Neutrophils # (A) 3.5 k/uL (1.3-7.7); Neutrophils % (A) 69 %; Platelet Count 308 k/uL (150-450); RBC 4.35 m/uL (3.80-5.40); RDW 12.5 % (11.5-15.5); WBC 5.1 k/uL (3.8-10.6)
[2020-12-05 10:50] LABS: African American GFR (CKD) >90 (>60 ml/min/1.73 sqM); Anion Gap 5 mmol/L; Blood Urea Nitrogen 10 mg/dL (7-17); Calcium 8.7 mg/dL (8.4-10.2); Carbon Dioxide 27 mmol/L (22-30); Chloride 108 mmol/L (98-107); Glucose 127 mg/dL (74-99); Non-African American GFR(CKD) 87 (>60 ml/min/1.73 sqM); Sodium 140 mmol/L (137-145)
[2020-12-05 10:53] LABS: Potassium 3.8 mmol/L (3.5-5.1)
[2020-12-05] MEDS: IPRATROPIUM-ALBUTEROL 3 ML NEB INHALATION SCH ×3 (11:39→20:19)
[2020-12-05] MEDS ORDERED: methylPREDNISolone SOD SUCCI 125 MG/2 ML VIAL IV SCH (12:00)
[2020-12-05] MEDS: methylPREDNISolone SOD SUCCI 40 MG/ML 1 ML VIAL IV SCH ×3 (12:21→22:44)
[2020-12-05] MEDS: SENNOSIDES-DOCUSATE SODIUM 1 EACH TAB PO SCH (12:22)
--- NOTE | 2020-12-05 12:41 | P.HPIM ---
History of Present Illness H&P Date: 12/05/20 Chief Complaint: Fever, weak HISTORY OF PRESENT ILLNESS This is an 85-year-old female patient of Drs. Shine, JUDY Dietz and Vladimir with past medical history of hypertension, hyperlipidemia, COPD and chronic hypoxic respiratory failure on home O2. Patient's last hospitalization was in 2019 which time she was treated for acute hypoxic respiratory failure secondary to COPD exacerbation, sepsis and pneumonia. Patient states that she recently changed her PCP to Dr. Shine has been seen by the nurse practitioner in the office. She states she also had an appointment with Dr. Gilbert last week and was feeling fine at that time. She is complaining of chest pain, fever, cough with sputum production that has been going on for almost a week. Patient also states that she has abdominal pain which feels like knots in her abdomen and she has appointments to see Dr. Thomas. She states this happens and goes away on its own every couple weeks. She denies any abdominal pain or tenderness at this time. She has not had a bowel movement for a couple days. She denies having any black stools. Patient came into [facility] emergency center for evaluation. Temperature was 100.9, heart rate 122, respiratory rate 26, blood pressure 150 /75, pulse ox 93% on room air. EKG is a sinus rhythm with no acute ST changes. Chest x-ray revealed no acute cardio pulmonary disease. CBC was unremarkable. Electrolytes and renal function were normal. Blood sugar 111. Lactic acid 1.5. Liver function tests were normal. LDH 657. Coronavirus PCR not detected. Troponin negative 2 draws. Patient was placed on the cardiac stepdown unit. Consults requested with cardiology. Pulmonary medicine. REVIEW OF SYSTEMS Constitutional: Reports fever, no chills, no night sweats. No weight change. No weakness, fatigue or lethargy. No daytime sleepiness. EENT: No headache. No blurred vision or double vision, no loss of vision. No loss of Hearing, no ringing in the ears, no dizziness. No nasal drainage or congestion. No epistaxis. No sore throat. Lungs:Reports shortness of breath, Reports cough, Reports sputum production. Reports wheezing. Cardiovascular:Reports chest pain, no lower extremity edema. No palpitations. No paroxysmal nocturnal dyspnea. No orthopnea. No lightheadedness or dizziness. No syncopal episodes. Abdominal: No abdominal pain. No nausea, vomiting. No diarrhea. No constipation. No bloody or tarry stools.. No loss of appetite. Genitourinary: No dysuria, increased frequency, urgency. No urinary retention. Musculoskeletal: No myalgias. No muscle weakness, no gait dysfunction, no frequent falls. No back pain. No neck pain. Integumentary: No wounds, no lesions. No rash or pruritus. No unusual bruising. No change in hair or nails. Neurologic: No aphasia. No facial droop. No change in mentation. No head injury. No headache. No paralysis. No paresthesia. Psychiatric: No depression. No anxiety. Endocrine: No abnormal blood sugars. SOCIAL HISTORY Patient was a smoker of one pack per day from [id number]. She states she has an occasional beer. No marijuana use. FAMILY HISTORY Father is with history of prostate cancer. Mother is with history of asthma and heart problems. Patient has one sister with history of colon cancer and one sister with history of lung cancer. PHYSICAL EXAMINATION Gen: This is this is an 85-year-old black female. She is resting in bed and appears to be comfortable. Harsh cough is noted. HEENT: Head is atraumatic, normocephalic. Pupils equal, round. Sclerae is anicteric. NECK: Supple. No JVD. No lymphadenopathy. No thyromegaly. LUNGS: Expiratory wheezing no accessory muscle usage.. No intercostal retractions. HEART: Regular rate and rhythm. Systolic ejection murmur at the base. ABDOMEN: Soft. Bowel sounds are present. No masses. No tenderness. EXTREMITIES: No pedal edema. No calf tenderness. Dorsalis pedis palpable b ilaterally. NEUROLOGICAL: Patient is awake, alert and oriented x3. Cranial nerves 2 through 12 are grossly intact. ASSESSMENT AND PLAN 1. Chest pain with normal troponins. Cardiology consult. Continue aspirin 81 mg daily, Lopressor 25 mg daily. 2. COPD exacerbation and acute purulent tracheobronchitis. Continue DuoNeb treatments 4 times daily and every 4 hours as needed, Symbicort 1604 0.5 g twice daily, start patient on Solu-Medrol 40 mg IV every 8 hours, continue ceftriaxone and azithromycin. 3. Hypertension. Continue Norvasc 10 mg daily, losartan 100 mg daily, Lopressor 25 mg daily. 4. Hyperlipidemia.. 5. Chronic hypoxic respiratory failure on home O2. 6. GI prophylaxis. Protonix. 7. DVT prophylaxis. Heparin subcu. Patient will be admitted to the hospital for a minimum of 2 night stay. DISCHARGE PLAN Most likely return home, possible home care. Impression and plan of care have been directed as dictated by the signing physician. Lorri Santana nurse practitioner acting as scribe for signing physician. 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 Uses Oxygen PRN. Last Myocardial Infarction Date:: 40 years ago History of Any Multi-Drug Resistant Organisms: None Reported Past Surgical History: Cholecystectomy, Hysterectomy, Orthopedic Surgery Additional Past Surgical History / Comment(s): KNEE arthroscopy-UNSURE WHICH SIDE, COLONOSCOPY-LARGE POLYP REMOVED, EGD, right cataract removed. Past Anesthesia/Blood Transfusion Reactions: No Reported Reaction Additional Past Anesthesia/Blood Transfusion Reaction / Comment(s): No hx blood transfusion. Past Psychological History: No Psychological Hx Reported Additional Psychological History / Comment(s): Pt resides with her spouse. She is independent. Smoking Status: Former smoker Past Alcohol Use History: Occasional Additional Past Alcohol Use History / Comment(s): Started smoking 1964, quit s moking 1989, smoked 1ppd. Past Drug Use History: None Reported Additional Drug Use History / Comment(s): Uses cbd oil occ for arthritic pain. Aware no use 24 hrs prior to procedure. - Past Family History Sister(s) Family Medical History: Cancer Additional Family Medical History / Comment(s): #1 sister colon cancer, # 2 sister lung cancer. Father Family Medical History: Cancer Additional Family Medical History / Comment(s): Prostate cancer. Mother Family Medical History: Asthma Additional Family Medical History / Comment(s): Heart problems. Medications and Allergies Home Medications Medication Instructions Recorded Confirmed Type Losartan Potassium 100 mg PO DAILY 10/30/14 12/04/20 History amLODIPine BESYLATE [Norvasc] 10 mg PO DAILY 02/02/18 12/04/20 History Albuterol Nebulized [Ventolin 2.5 mg INHALATION RT-QID PRN 04/28/19 12/04/20 History Nebulized] Metoprolol Tartrate [Lopressor] 25 mg PO DAILY 04/28/19 12/04/20 History Aspirin EC [Ecotrin Low Dose] 81 mg PO DAILY 12/04/20 12/04/20 History Fluticasone Propion/Salmeterol 1 puff INHALATION RT-BID PRN 12/04/20 12/04/20 History [Wixela 500-50 Inhub] Allergies Allergy/AdvReac Type Severity Reaction Status Date / Time hydrocodone bitartrate AdvReac states Verified 12/04/20 23:23 [From Vicodin] "doesn't make me feel good" prednisone AdvReac Hallucinati Verified 12/04/20 23:23 ons Physical Exam Vitals: Vital Signs Temp Pulse Pulse Resp BP BP Pulse Ox 12/05/20 04:00 98.2 F 85 20 131/73 94 L 12/05/20 02:20 105 H 20 12/05/20 02:09 99.4 F 105 H 20 165/78 94 L 12/05/20 01:41 99.9 F H 93 18 157/97 97 12/04/20 23:34 102 H 21 152/78 95 12/04/20 22:40 119 H 24 12/04/20 21:37 100.9 F H 122 H 26 H 158/75 93 L Intake and Output 12/04/20 12/05/20 12/05/20 22:59 06:59 14:59 Intake Total 0 Balance 0 Intake: Oral 0 Other: Weight 79.379 kg 82.2 kg Results CBC & Chem 7: 12/05/20 10:12 12/05/20 10:12 Labs: Abnormal Lab Results - Last 24 Hours (Table) 12/04/20 12/04/20 Range/Units 22:34 22:34 Hct 47.1 H (34.0-46.0) % Glucose 111 H (74-99) mg/dL Lactate Dehydrogenase 657 H (313-618) U/L
--- NOTE | 2020-12-05 13:17 | P.CNPUL ---
History of Present Illness Consult date: 12/05/20 Requesting physician: Pepe Shine Reason for consult: dyspnea, COPD Chief complaint: Fever, fatigue, weakness History of present illness: This is a very pleasant 85-year-old female patient with a known history of hypertension, ALLERGIC rhinitis, previous pseudomonas aeruginosa cultured and her lungs in 2019, chronic obstructive pulmonary disease maintained on Wixela, Spiriva, albuterol. FEV1 value 74% of predicted. She follows with Dr. Gilbert in our office. She presented to the emergency room yesterday with complaints of chest discomfort, fever, sweating, weakness. His any temperature 100.9. She was 93% O2 saturation on room air. Chest x-ray reveals no acute cardiopulmonary process. White count 5.1. Hemoglobin 13.6. Sodium 140. Potassium 3.8. Creatinine 0.55. Glucose 127. Troponins negative 2. ProBNP 58. Ventura virus not detected. Pro-calcitonin pending. Urinalysis pending. She is seen today in consultation on the selective care unit. She is currently laying comfortably in bed. Awake and alert in no acute distress. She is breathing a bit easier today compared to yesterday. She is still somewhat bronchospastic and wheezy. Dyspneic on exertion. Most recent temperature 99.9. She's been initiated on DuoNeb inhalations, Symbicort, IV Solu-Medrol. 0.9 normal saline at 100 ML's per hour. Antibiotics in the form of ceftriaxone and azithromycin. Review of Systems REVIEW OF SYSTEMS: CONSTITUTIONAL: Generalized weakness, fatigue. Denies any recent significant weight loss or weight gain. EYES: Denies change in vision. EARS, NOSE, MOUTH, THROAT: Denies headaches, denies sore throat. CARDIOVASCULAR: Positive for chest pain, no palpitations or syncopal episodes. RESPIRATORY: Positive for shortness of breath, cough, congestion no hemoptysis. GASTROINTESTINAL: Denies change in appetite, denies abdominal pain GENITOURINARY: Denies hematuria, denies infections. MUSKULOSKELETAL: Denies pain, denies swelling. INTEGUMENTARY: Denies rash, denies eczema. NEUROLOGICAL: Denies recent memory loss, no recent seizure activity. PSYCHIATRIC: Denies anxiety, denies depression. HEMATOLOGIC/LYMPHATIC: Denies anemia, denies enlarged lymph nodes. Past Medical History Past Medical History: Asthma, COPD, Eye Disorder, Hearing Disorder / Deafness, Hyperlipidemia, Hypertension, Liver Disease, Osteoarthritis (OA) Additional Past Medical History / Comment(s): Hx stomach ulcer, cysts on liver >20 years, urinary leakage, small hiatal hernia, diverticulosis, tinnitus bila teral ears, left cataract, Pneumonia 2018. Uses Oxygen PRN. Last Myocardial Infarction Date:: 40 years ago History of Any Multi-Drug Resistant Organisms: None Reported Past Surgical History: Cholecystectomy, Hysterectomy, Orthopedic Surgery Additional Past Surgical History / Comment(s): KNEE arthroscopy-UNSURE WHICH SIDE, COLONOSCOPY-LARGE POLYP REMOVED, EGD, right cataract removed. Past Anesthesia/Blood Transfusion Reactions: No Reported Reaction Additional Past Anesthesia/Blood Transfusion Reaction / Comment(s): No hx blood transfusion. Past Psychological History: No Psychological Hx Reported Additional Psychological History / Comment(s): Pt resides with her spouse. She is independent. Smoking Status: Former smoker Past Alcohol Use History: Occasional Additional Past Alcohol Use History / Comment(s): Started smoking 1964, quit smoking 1989, smoked 1ppd. Past Drug Use History: None Reported Additional Drug Use History / Comment(s): Uses cbd oil occ for arthritic pain. Aware no use 24 hrs prior to procedure. - Past Family History Sister(s) Family Medical History: Cancer Additional Family Medical History / Comment(s): #1 sister colon cancer, # 2 sister lung cancer. Father Family Medical History: Cancer Additional Family Medical History / Comment(s): Prostate cancer. Mother Family Medical History: Asthma Additional Family Medical History / Comment(s): Heart problems. Medications and Allergies Home Medications Medication Instructions Recorded Confirmed Type Losartan Potassium 100 mg PO DAILY 10/30/14 12/04/20 History amLODIPine BESYLATE [Norvasc] 10 mg PO DAILY 02/02/18 12/04/20 History Albuterol Nebulized [Ventolin 2.5 mg INHALATION RT-QID PRN 04/28/19 12/04/20 History Nebulized] Metoprolol Tartrate [Lopressor] 25 mg PO DAILY 04/28/19 12/04/20 History Aspirin EC [Ecotrin Low Dose] 81 mg PO DAILY 12/04/20 12/04/20 History Fluticasone Propion/Salmeterol 1 puff INHALATION RT-BID PRN 06/23/21 06/23/21 History [Wixela 500-50 Inhub] Allergies Allergy/AdvReac Type Severity Reaction Status Date / Time hydrocodone bitartrate AdvReac states Verified 12/04/20 23:23 [From Vicodin] "doesn't make me feel good" prednisone AdvReac Hallucinati Verified 12/04/20 23:23 ons Physical Exam Vitals: Vital Signs Temp Pulse Pulse Resp BP BP Pulse Ox 12/05/20 04:00 98.2 F 85 20 131/73 94 L 12/05/20 02:20 105 H 20 12/05/20 02:09 99.4 F 105 H 20 165/78 94 L 12/05/20 01:41 99.9 F H 93 18 157/97 97 12/04/20 23:34 102 H 21 152/78 95 12/04/20 22:40 119 H 24 12/04/20 21:37 100.9 F H 122 H 26 H 158/75 93 L Intake and Output 12/04/20 12/05/20 12/05/20 22:59 06:59 14:59 Intake Total 0 Balance 0 Intake: Oral 0 Other: Weight 79.379 kg 82.2 kg GENERAL EXAM: Alert, pleasant 85-year-old female patient, on room air, comfortable in no apparent distress. HEAD: Normocephalic. EYES: Normal reaction of pupils, equal size. NOSE: Clear with pink turbinates. THROAT: No erythema or exudates. NECK: No masses, no JVD. CHEST: No chest wall deformity. LUNGS: Equal air entry with bilateral end expiratory wheeze. CVS: S1 and S2 normal with no audible murmur, regular rhythm. ABDOMEN: No hepatosplenomegaly, normal bowel sounds, no guarding or rigidity. SPINE: No scoliosis or deformity SKIN: No rashes CENTRAL NERVOUS SYSTEM: No focal deficits, tone is normal in all 4 extremities. EXTREMITIES: There is no peripheral edema. No clubbing, no cyanosis. Periphera l pulses are intact. Results - Laboratory Findings CBC and BMP: 12/05/20 10:12 12/05/20 10:12 PT/INR, D-dimer PT 10.1 sec (9.0-12.0) 12/04/20 22:34 INR 0.9 (<1.2) 12/04/20 22:34 Abnormal lab findings: Abnormal Labs 12/04/20 12/04/20 12/05/20 22:34 22:34 10:12 Hct 47.1 H Lymphocytes # 0.8 L Chloride Glucose 111 H Lactate Dehydrogenase 657 H 12/05/20 10:12 Hct Lymphocytes # Chloride 108 H Glucose 127 H Lactate Dehydrogenase - Diagnostic Findings Chest x-ray: image reviewed Assessment and Plan Assessment: 1 Febrile illness of unclear etiology. Chest x-ray shows no acute pulmonary process. No leukocytosis. Pro-calcitonin pending. Urinalysis pending. 2 Acute exacerbation of chronic obstructive pulmonary disease. 3 History of hypertension 4 History of hyperlipidemia 5 Former smoker Plan: The patient was seen and evaluated by Dr. Carney Chest x-ray, labs reviewed No acute pulmonary process Continue bronchodilators, IV Solu-Medrol Empiric antibiotics Procalcitonin pending, UA pending We will continue to follow and make further recommendations based on her clinical status I, the cosigning physician, performed a history & physical examination of the patient. Lungs sounds with bilateral end expiratory wheeze, diminished. Maintaining good O2 saturations in the 90s on room air. I discussed the assessment and plan of care with my nurse practitioner, Teresa Alejandro. I attest to the above consultation as dictated by her. Time with Patient: Greater than 30
--- NOTE | 2020-12-05 13:29 | P.CRDCN ---
History of Present Illness History of present illness: HISTORY OF PRESENTING ILLNESS This is a pleasant 85-year-old female past medical history significant for hypertension, former nicotine dependence, dyslipidemia, COPD/asthma. She follows in the office with Dr. Dietz We have been asked to see in consultation for chest pain. Patient seen and examined at bedside, she presents emergency department with worsening abdominal pain, nausea, constipation. She states she's been having central and left abdominal pain over the past 2 days. The pa in feels as if someone is "twisting her intestines". Associated symptoms include nausea and constipation. She denies chest pain, palpitations, shortness of breath, lower extremity edema, fatigue, weakness, lightheadedness, syncope, diarrhea or emesis. Current home cardiac medications include aspirin 81 mg daily, amlodipine 10 mg daily, metoprolol tartrate 25 mg daily, losartan 100 mg daily. Patient underwent Lexiscan stress test and echocardiogram in November 2019. Vision is Lexiscan stress test was negative for any ischemia. Echocardiogram revealed an EF of 55%, mild to moderate pulmonary hypertension. DIAGNOSTICS EKG reveals sinus tachycardia, heart rate 111, no significant ST-T wave a bnormalities. Telemetry tracings indicate sinus mechanism, no ectopy or arrhythmia noted Chest xray no acute cardio pulmonary process. Laboratory reviewed, troponin negative 2, proBNP 58, sodium 141, potassium 3.8, BUN 16, serum creatinine 0.76, magnesium 2.3, COVID-19 negative, CBC unremarkable REVIEW OF SYSTEMS At the time of my exam: CONSTITUTIONAL: Denies fever or chills. CARDIOVASCULAR: Denies chest pain, shortness of breath, orthopnea, PND or palpitations. RESPIRATORY: Denies cough. GASTROINTESTINAL: Positive abdominal pain, constipation, nausea. Denies, diarrhea, vomiting. MUSCULOSKELETAL: Denies myalgias. NEUROLOGIC: Denies numbness, tingling, headacbe or weakness. ENDOCRINE: Denies fatigue, weight change, polydipsia or polyurina. GENITOURINARY: Denies burning, hematuria or urgency with micturation. HEMATOLOGIC: Denies history of anemia or bleeding. PHYSICAL EXAMINATION Blood pressure 131/73 heart rate 85 afebrile and maintaining oxygen saturation 94% on 2 L nasal cannula CONSTITUTIONAL: No apparent distress. HEENT: Head is normocephalic. Pupils are equal, round. Sclerae anicteric. Mucous membranes of the mouth are moist. No JVD. No carotid bruit. CHEST EXAMINATION: Lungs are clear to auscultation. No chest wall tenderness is noted on palpation or with deep breathing. HEART EXAMINATION: Regular rate and rhythm. S1, S2 heard. No murmurs, gallops or rub. ABDOMEN: Soft, nontender. Positive bowel sounds. EXTREMITIES: 2+ peripheral pulses, no lower extremity edema and no calf tenderness. SKIN: intact NEUROLOGIC EXAMINATION: Patient is awake, alert and oriented x3. ASSESSMENT Chest pain, atypical, acute coronary event ruled out troponin negative 2, no ischemia noted on EKG. Patient does not have any chest discomfort Abdominal pain, nausea Hypertension COPD/Asthma Dyslipidemia, patient was intolerant to statins due to cramps and myalgias PLAN An acute coronary event has been ruled out with no EKG evidence of ischemia and negative cardiac enzymes. Restart patient's home cardiac medications No further recommendations from a cardiology perspective. Follow up with Dr. Dietz as an outpatient Thank you kindly for this consultation. Nurse Practitioner note has been reviewed, I agree with a documented findings and plan of care. Patient was seen and examined. Past Medical History Past Medical History: Asthma, COPD, Eye Disorder, Hearing Disorder / Deafness, Hyperlipidemia, Hypertension, Liver Disease, Osteoarthritis (OA) Additional Past Medical History / Comment(s): Hx stomach ulcer, cysts on liver >20 years, urinary leakage, small hiatal hernia, diverticulosis, tinnitus bilateral ears, left cataract, Pneumonia Feb. 2018. Uses Oxygen PRN. Last Myocardial Infarction Date:: 40 years ago History of Any Multi-Drug Resistant Organisms: None Reported Past Surgical History: Cholecystectomy, Hysterectomy, Orthopedic Surgery Additional Past Surgical History / Comment(s): KNEE arthroscopy-UNSURE WHICH SIDE, COLONOSCOPY-LARGE POLYP REMOVED, EGD, right cataract removed. Past Anesthesia/Blood Transfusion Reactions: No Reported Reaction Additional Past Anesthesia/Blood Transfusion Reaction / Comment(s): No hx blood transfusion. Past Psychological History: No Psychological Hx Reported Additional Psychological History / Comment(s): Pt resides with her spouse. She is independent. Smoking Status: Former smoker Past Alcohol Use History: Occasional Additional Past Alcohol Use History / Comment(s): Started smoking 1964, quit smoking 1989, smoked 1ppd. Past Drug Use History: None Reported Additional Drug Use History / Comment(s): Uses cbd oil occ for arthritic pain. Aware no use 24 hrs prior to procedure. - Past Family History Sister(s) Family Medical History: Cancer Additional Family Medical History / Comment(s): #1 sister colon cancer, # 2 sister lung cancer. Father Family Medical History: Cancer Additional Family Medical History / Comment(s): Prostate cancer. Mother Family Medical History: Asthma Additional Family Medical History / Comment(s): Heart problems. Medications and Allergies Home Medications Medication Instructions Recorded Confirmed Type Losartan Potassium 100 mg PO DAILY 10/30/14 12/04/20 History amLODIPine BESYLATE [Norvasc] 10 mg PO DAILY 02/02/18 12/04/20 History Albuterol Nebulized [Ventolin 2.5 mg INHALATION RT-QID PRN 04/28/19 12/04/20 History Nebulized] Metoprolol Tartrate [Lopressor] 25 mg PO DAILY 04/28/19 12/04/20 History Aspirin EC [Ecotrin Low Dose] 81 mg PO DAILY 12/04/20 12/04/20 History Fluticasone Propion/Salmeterol 1 puff INHALATION RT-BID PRN 12/04/20 12/04/20 History [Wixela 500-50 Inhub] Allergies Allergy/AdvReac Type Severity Reaction Status Date / Time hydrocodone bitartrate AdvReac states Verified 12/04/20 23:23 [From Vicodin] "doesn't make me feel good" prednisone AdvReac Hallucinati Verified 12/04/20 23:23 ons Physical Exam Vitals: Vital Signs Temp Pulse Pulse Resp BP BP Pulse Ox 12/05/20 04:00 98.2 F 85 20 131/73 94 L 12/05/20 02:20 105 H 20 12/05/20 02:09 99.4 F 105 H 20 165/78 94 L 12/05/20 01:41 99.9 F H 93 18 157/97 97 12/04/20 23:34 102 H 21 152/78 95 12/04/20 22:40 119 H 24 12/04/20 21:37 100.9 F H 122 H 26 H 158/75 93 L Intake and Output 12/04/20 12/05/20 12/05/20 22:59 06:59 14:59 Intake Total 0 Balance 0 Intake: Oral 0 Other: Weight 79.379 kg 82.2 kg Results 12/05/20 10:12 12/05/20 10:12 Cardiac Enzymes 12/04/20 12/04/20 12/05/20 Range/Units 22:34 22:34 10:12 AST 30 (14-36) U/L Lactate Dehydrogenase 657 H (313-618) U/L Troponin I <0.012 <0.012 (0.000-0.034) ng/mL Coagulation 12/04/20 Range/Units 22:34 PT 10.1 (9.0-12.0) sec APTT 22.8 (22.0-30.0) sec CBC 12/04/20 12/05/20 Range/Units 22:34 10:12 WBC 7.7 5.1 (3.8-10.6) k/uL RBC 5.06 4.35 (3.80-5.40) m/uL Hgb 14.9 13.6 (11.4-16.0) gm/dL Hct 47.1 H 40.7 (34.0-46.0) % Plt Count 341 308 (150-450) k/uL Comprehensive Metabolic Panel 12/04/20 12/05/20 Range/Units 22:34 10:12 Sodium 141 140 (137-145) mmol/L Potassium 3.8 3.8 (3.5-5.1) mmol/L Chloride 105 108 H (98-107) mmol/L Carbon Dioxide 28 27 (22-30) mmol/L BUN 16 10 (7-17) mg/dL Creatinine 0.76 0.55 (0.52-1.04) mg/dL Glucose 111 H 127 H (74-99) mg/dL Calcium 9.8 8.7 (8.4-10.2) mg/dL AST 30 (14-36) U/L ALT 21 (4-34) U/L Alkaline Phosphatase 123 (38-126) U/L Total Protein 6.9 (6.3-8.2) g/dL Albumin 4.4 (3.5-5.0) g/dL Current Medications Generic Name Dose Route Start Last Admin Trade Name Freq PRN Reason Stop Dose Admin Albuterol/Ipratropium 3 ml 12/05/20 00:03 Ipratropium-Albuterol 3 Ml Neb INHALATION RT-Q4H PRN shortness of breath Albuterol/Ipratropium 3 ml 12/05/20 12:00 12/05/20 11:39 Ipratropium-Albuterol 3 Ml Neb INHALATION Not Given RT-QID [facility] Amlodipine Besylate 10 mg 12/05/20 09:00 12/05/20 09:24 Amlodipine 10 Mg Tab PO 10 mg DAILY KENDAL Administration Aspirin 81 mg 12/05/20 09:00 12/05/20 09:24 Aspirin 81 Mg PO 81 mg DAILY KENDAL Administration Azithromycin 500 mg 12/06/20 22:00 Azithromycin 500 Mg Tab PO DAILY@2200 [facility] Budesonide/Formoterol Fumarate 2 puff 12/05/20 08:56 Symbicort 160-4.5 Mcg Inhaler INHALATION RT-BID PRN Shortness Of Breath Sodium Chloride 1,000 mls @ 100 mls/hr 12/05/20 00:15 12/05/20 09:25 Saline 0.9% IV 100 mls/hr .Q10H KENDAL Administration Ceftriaxone Sodium 2 gm/ 50 mls @ 100 mls/hr 12/06/20 02:00 Sodium Chloride IVPB Q24H [facility] Insulin Aspart 0 unit 12/05/20 12:30 Insulin Aspart (Novolog) 100 Unit/Ml Vial SQ ACHS [facility] Protocol Losartan Potassium 100 mg 12/05/20 09:00 12/05/20 09:24 Losartan 50 Mg Tab PO 100 mg DAILY KENDAL Administration Methylprednisolone Sodium Succinate 40 mg 12/05/20 10:00 12/05/20 12:21 Methylprednisolone Sod Succi 40 Mg/Ml 1 Ml Vial IV 40 mg Q8HR KENDAL Administration Metoprolol Tartrate 25 mg 12/05/20 09:00 12/05/20 09:24 Metoprolol Tartrate 25 Mg Tab PO 25 mg DAILY KENDAL Administration Miscellaneous Information 1 each 12/05/20 00:03 Pneumonia Protocol Utilized 1 Each Misc PO ONCE PRN Per Protocol Senna/Docusate Sodium 2 each 12/05/20 10:00 12/05/20 12:22 Sennosides-Docusate Sodium 1 Each Tab PO 2 each DAILY KENDAL Administration Intake and Output 12/04/20 12/05/20 12/05/20 22:59 06:59 14:59 Intake Total 0 Balance 0 Intake: Oral 0 Other: Weight 79.379 kg 82.2 kg 12/05/20 10:12 12/05/20 10:12
[2020-12-05] MEDS: HEPARIN SODIUM,PORCINE/PF 5,000 UNIT/0.5 ML SYRINGE SQ SCH (16:30)
[2020-12-05] MEDS: INSULIN ASPART (NovoLOG) 100 UNIT/ML VIAL SQ SCH ×2 (18:02→20:54)
[2020-12-05] MEDS: SYMBICORT 160-4.5 MCG INHALER INHALATION SCH (20:20)
[2020-12-05 20:45] LABS: Glucose,Whole Blood 171 mg/dL (75-99)
[2020-12-05 21:36] LABS: Appearance,Urine Clear (Clear); Bilirubin,Urine Negative (Negative); Blood,Urine Negative (Negative); Color,Urine Yellow; Glucose,Urine (UA) Negative (Negative); Ketones,Urine Negative (Negative); Leukocyte Esterase,Urine Negative (Negative); Nitrite,Urine Negative (Negative); Protein,Urine Negative (Negative); Specific Gravity,Urine 1.016 (1.001-1.035); Urobilinogen,Urine <2.0 mg/dL (<2.0)
[2020-12-06] MEDS: HEPARIN SODIUM,PORCINE/PF 5,000 UNIT/0.5 ML SYRINGE SQ SCH ×4 (01:05→23:53)
[2020-12-06] MEDS: SODIUM CHLORIDE 0.9% 1,000 ML IV SCH ×2 (05:12→16:26)
[2020-12-06] MEDS: PANTOPRAZOLE 40 MG TABLET PO SCH (05:13)
[2020-12-06] MEDS: INSULIN ASPART (NovoLOG) 100 UNIT/ML VIAL SQ SCH ×4 (06:07→21:02)
[2020-12-06 06:32] LABS: Glucose,Whole Blood 120 mg/dL (75-99)
--- NOTE | 2020-12-06 08:06 | XR ---
EXAMINATION TYPE: XR chest 2V DATE OF EXAM: 12/06/2020 COMPARISON: 12/04/2020 INDICATION: Pneumonia TECHNIQUE: Frontal and lateral views of the chest are obtained. FINDINGS: The heart size is normal. The pulmonary vasculature is normal. The lungs are clear. IMPRESSION: 1. No acute pulmonary process.
[2020-12-06] MEDS: SYMBICORT 160-4.5 MCG INHALER INHALATION SCH ×2 (08:29→20:22)
[2020-12-06] MEDS: IPRATROPIUM-ALBUTEROL 3 ML NEB INHALATION SCH ×4 (08:29→20:22)
[2020-12-06] MEDS: ASPIRIN 81 MG PO SCH (09:09)
[2020-12-06] MEDS: LOSARTAN 50 MG TAB PO SCH (09:09)
[2020-12-06] MEDS: METOPROLOL TARTRATE 25 MG TAB PO SCH (09:09)
[2020-12-06] MEDS: methylPREDNISolone SOD SUCCI 40 MG/ML 1 ML VIAL IV SCH ×3 (09:09→23:05)
[2020-12-06] MEDS: SENNOSIDES-DOCUSATE SODIUM 1 EACH TAB PO SCH (09:09)
[2020-12-06] MEDS: amLODIPine 10 MG TAB PO SCH (09:10)
[2020-12-06 11:58] LABS: Glucose,Whole Blood 115 mg/dL (75-99)
--- NOTE | 2020-12-06 12:42 | P.PN ---
Subjective Progress Note Date: 12/06/20 Principal diagnosis: Shortness of breath and wheezing This is a very pleasant 85-year-old female patient with a known history of hypertension, ALLERGIC rhinitis, previous pseudomonas aeruginosa cultured and her lungs in 2019, chronic obstructive pulmonary disease maintained on Wixela, Spiriva, albuterol. FEV1 value 74% of predicted. She follows with Dr. Gilbert in our office. She presented to the emergency room yesterday with complaints of chest discomfort, fever, sweating, weakness. His any temperature 100.9. She was 93% O2 saturation on room air. Chest x-ray reveals no acute cardiopulmonary process. White count 5.1. Hemoglobin 13.6. Sodium 140. Potassium 3.8. Creatinine 0.55. Glucose 127. Troponins negative 2. ProBNP 58. Ventura virus not detected. Pro-calcitonin pending. Urinalysis pending. She is seen today in consultation on the selective care unit. She is currently laying comfortably in bed. Awake and alert in no acute distress. She is breathing a bit easier today compared to yesterday. She is still somewhat bronchospastic and wheezy. Dyspneic on exertion. Most recent temperature 99.9. She's been initiated on DuoNeb inhalations, Symbicort, IV Solu-Medrol. 0.9 normal saline at 100 ML's per hour. Antibiotics in the form of ceftriaxone and azithromycin. On 12/06/2020 patient seen in follow-up on selective care unit, she states she is breathing easier, still has a congested cough, mild wheezing, but overall improving. Vital signs have been stable, rheumatic pulse ox is 98%, afebrile, remains on antibiotics in the form of azithromycin and Rocephin, she is on nebulized bronchodilators and IV steroids with Solu-Medrol 40 mg every 8 hours. Patient is up in a chair, she is tolerating activity well. Blood and sputum cultures have been sent, thus far they are negative. Objective - Vital Signs Vital signs: Vital Signs Temp 98.0 F 12/06/20 11:58 Pulse 87 12/06/20 11:58 Resp 18 12/06/20 11:58 BP 134/74 12/06/20 11:58 Pulse Ox 98 12/06/20 11:58 Intake & Output 12/05/20 12/06/20 12/06/20 18:59 06:59 18:59 Intake Total 480 Output Total 500 300 Balance 480 -500 -300 Weight 81.2 kg Intake: Oral 480 Output: Urine 500 300 Other: Voiding Method Toilet # Voids 1 - Exam GENERAL EXAM: Alert, very pleasant, 85-year-old -[place] female, on room air with a pulse ox of 98% comfortable in no apparent distress. HEAD: Normocephalic/atraumatic. EYES: Normal reaction of pupils, equal size. Conjunctiva pink, sclera white. NOSE: Clear with pink turbinates. THROAT: No erythema or exudates. NECK: No masses, no JVD, no thyroid enlargement, no adenopathy. CHEST: No chest wall deformity. Symmetrical expansion. LUNGS: Equal air entry with some scattered wheezes, congested cough CVS: Regular rate and rhythm, normal S1 and S2, no gallops, no murmurs, no rubs ABDOMEN: Soft, nontender. No hepatosplenomegaly, normal bowel sounds, no guardi ng or rigidity. EXTREMITIES: No clubbing, no edema, no cyanosis, 2+ pulses and upper and lower extremities. MUSCULOSKELETAL: Muscle strength and tone normal. SPINE: No scoliosis or deformity SKIN: No rashes CENTRAL NERVOUS SYSTEM: Alert and oriented -3. No focal deficits, tone is normal in all 4 extremities. PSYCHIATRIC: Alert and oriented -3. Appropriate affect. Intact judgment and insight. - Labs CBC & Chem 7: 12/05/20 10:12 12/05/20 10:12 Labs: Abnormal Lab Results - Last 24 Hours (Table) 12/05/20 12/06/20 12/06/20 Range/Units 20:33 06:02 11:56 POC Glucose (mg/dL) 171 H 120 H 115 H (75-99) mg/dL Microbiology - Last 24 Hours (Table) 12/05/20 20:24 Gram Stain - Preliminary Sputum Sputum Culture - Preliminary 12/05/20 00:55 Blood Culture - Preliminary Blood No Growth after 24 hours 12/05/20 00:38 Blood Culture - Preliminary Blood No Growth after 24 hours 12/04/20 22:45 Blood Culture - Preliminary Blood No Growth after 24 hours 12/04/20 22:34 Blood Culture - Preliminary Blood No Growth after 24 hours Assessment and Plan Plan: Assessment: #1. Acute febrile illness, unknown etiology, x-ray showed no acute pulmonary process. ProCalcitonin level was negative at 0.06, urinalysis showed no evidence of infection, COVID-19 PCR was negative #2. Acute tracheobronchitis and acute exacerbation of COPD #3. COPD with baseline FEV1 of 74% of predicted #4. Previous pulmonary infections related to pseudomonas aeruginosa #5. Hypertension #6. Hyperlipidemia #7. Osteoarthritis #8. Former smoker #9. Chronic hypoxic respiratory failure patient uses oxygen on as-needed basis at home #10. History of hiatal hernia #11. History of hepatic cyst #12. Stress incontinence Plan: Continue current medical treatment Medically patient is improving Vital signs are stable No evidence of pneumonia or urinary tract infection Would continue with oral antibiotics for acute tracheobronchitis From pulmonary perspective patient can be considered for discharge home today or tomorrow She will need to complete outpatient course of antibiotics and steroid taper Outpatient follow-up with Dr. Gilbert in the office in 7-10 days I performed a history & physical examination of the patient and discussed their management with my nurse practitioner, Lori Walker. I reviewed the nurse practitioner's note and agree with the documented findings and plan of care. Lung sounds are positive for diminished breath sounds with a few scattered rhonchi and wheezes The findings and the impression was discussed with the patient. I attest to the documentation by the nurse practitioner. Time with Patient: Less than 30
--- NOTE | 2020-12-06 14:25 | P.PN ---
Subjective Progress Note Date: 12/06/20 HISTORY OF PRESENT ILLNESS This is an 85-year-old female patient of Drs. Shine, JUDY Dietz and Vladimir with past medical history of hypertension, hyperlipidemia, COPD and chronic hypoxic respiratory failure on home O2. Patient's last hospitalization was in 2018 which time she was treated for acute hypoxic respiratory failure secondary to COPD exacerbation, sepsis and pneumonia. Patient states that she recently changed her PCP to Dr. Shine has been seen by the nurse practitioner in the office. She states she also had an appointment with Dr. Gilbert last week and was feeling fine at that time. She is complaining of chest pain, fever, cough with sputum production that has been going on for almost a week. Patient also states that she has abdominal pain which feels like knots in her abdomen and she has appointments to see Dr. Thomas. She states this happens and goes away on its own every couple weeks. She denies any abdominal pain or tenderness at this time. She has not had a bowel movement for a couple days. She denies having any black stools. Patient came into [facility] emergency center for evaluation. Temperature was 100.9, heart rate 122, respiratory rate 26, blood pressure 150/75, pulse ox 93% on room air. EKG is a sinus rhythm with no acute ST changes. Chest x-ray revealed no acute cardio pulmonary disease. CBC was unremarkable. Electrolytes and renal function were normal. Blood sugar 111. Lactic acid 1.5. Liver function tests were normal. LDH 657. Coronavirus PCR not detected. Troponin negative 2 draws. Patient was placed on the cardiac stepdown unit. Consults requested with cardiology. Pulmonary medicine. 12/06: Patient is found ambulating in her room without oxygen. She states that she is feeling a lot better from yesterday and is walking so that she will be able to go home today. She continues to have wheezing for which we will plan to keep her here for another 24-48 hours and continue Solu-Medrol. Regarding prednisone intolerance, patient may be able to take Medrol Dosepak at home. She states that she is weak and tired as she has not been able to sleep here. She continues to have a congestive cough with some sputum production. She has been afebrile, heart rate 87, blood pressure 134/74, pulse ox 90% on room air. Capillary blood glucose running between 115 and 171. Anticipate probable dis charge home tomorrow. REVIEW OF SYSTEMS Constitutional: Reports fever, no chills, no night sweats. No weight change. No weakness, fatigue or lethargy. No daytime sleepiness. EENT: No headache. No blurred vision or double vision, no loss of vision. No loss of Hearing, no ringing in the ears, no dizziness. No nasal drainage or congestion. No epistaxis. No sore throat. Lungs:Reports shortness of breath, Reports cough, Reports sputum production. Reports wheezing. Cardiovascular: Denies chest pain, no lower extremity edema. No palpitations. No paroxysmal nocturnal dyspnea. No orthopnea. No lightheadedness or dizziness. No syncopal episodes. Abdominal: No abdominal pain. No nausea, vomiting. No diarrhea. No constipation. No bloody or tarry stools.. No loss of appetite. Genitourinary: No dysuria, increased frequency, urgency. No urinary retention. Musculoskeletal: No myalgias. No muscle weakness, no gait dysfunction, no frequent falls. No back pain. No neck pain. Integumentary: No wounds, no lesions. No rash or pruritus. No unusual bruisin g. No change in hair or nails. Neurologic: No aphasia. No facial droop. No change in mentation. No head injury. No headache. No paralysis. No paresthesia. Psychiatric: No depression. No anxiety. Endocrine: No abnormal blood sugars. PHYSICAL EXAMINATION Gen: This is this is an 85-year-old black female. She is resting in bed and appears to be comfortable. Harsh cough is noted. HEENT: Head is atraumatic, normocephalic. Pupils equal, round. Sclerae is anicteric. NECK: Supple. No JVD. No lymphadenopathy. No thyromegaly. LUNGS: Expiratory wheezing no accessory muscle usage.. No intercostal retractions. HEART: Regular rate and rhythm. Systolic ejection murmur at the base. ABDOMEN: Soft. Bowel sounds are present. No masses. No tenderness. EXTREMITIES: No pedal edema. No calf tenderness. Dorsalis pedis palpable bilaterally. NEUROLOGICAL: Patient is awake, alert and oriented x3. Cranial nerves 2 through 12 are grossly intact. ASSESSMENT AND PLAN 1. Chest pain with normal troponins, acute coronary syndrome ruled out. Cardiology consult appreciated. Continue aspirin 81 mg daily, Lopressor 25 mg daily. 2. COPD exacerbation and acute purulent tracheobronchitis. Continue DuoNeb treatments 4 times daily and every 4 hours as needed, Symbicort 1604 0.5 g twice daily, continue Solu-Medrol 40 mg IV every 8 hours, continue ceftriaxone and azithromycin. 3. Hypertension. Continue Norvasc 10 mg daily, losartan 100 mg daily, Lopressor 25 mg daily. 4. Hyperlipidemia.. 5. Chronic hypoxic respiratory failure on home O2. 6. GI prophylaxis. Protonix. 7. DVT prophylaxis. Heparin subcu. DISCHARGE PLAN Home, possible home care. Impression and plan of care have been directed as dictated by the signing physician. Lorri Santana nurse practitioner acting as scribe for signing physician. Objective - Vital Signs Vital signs: Vital Signs Temp 98.1 F 12/06/20 08:00 Pulse 77 12/06/20 08:40 Resp 18 12/06/20 08:00 BP 150/80 12/06/20 08:00 Pulse Ox 96 12/06/20 08:00 Intake & Output 12/05/20 12/06/20 12/06/20 18:59 06:59 18:59 Intake Total 480 Output Total 500 Balance 480 -500 Weight 81.2 kg Intake: Oral 480 Output: Urine 500 Other: Voiding Method Toilet # Voids 1 - Labs CBC & Chem 7: 12/05/20 10:12 12/05/20 10:12 Labs: Abnormal Lab Results - Last 24 Hours (Table) 12/05/20 12/05/20 12/05/20 Range/Units 10:12 10:12 20:33 Lymphocytes # 0.8 L (1.0-4.8) k/uL Chloride 108 H (98-107) mmol/L Glucose 127 H (74-99) mg/dL POC Glucose (mg/dL) 171 H (75-99) mg/dL 12/06/20 Range/Units 06:02 Lymphocytes # (1.0-4.8) k/uL Chloride (98-107) mmol/L Glucose (74-99) mg/dL POC Glucose (mg/dL) 120 H (75-99) mg/dL Microbiology - Last 24 Hours (Table) 12/05/20 20:24 Gram Stain - Preliminary Sputum Sputum Culture - Preliminary 06/24/21 00:55 Blood Culture - Preliminary Blood No Growth after 24 hours 12/05/20 00:38 Blood Culture - Preliminary Blood No Growth after 24 hours 12/04/20 22:45 Blood Culture - Preliminary Blood No Growth after 24 hours 12/04/20 22:34 Blood Culture - Preliminary Blood No Growth after 24 hours
[2020-12-06 16:58] LABS: Glucose,Whole Blood 147 mg/dL (75-99)
[2020-12-06] MEDS ORDERED: ZOLPIDEM 5 MG TAB PO ONE (19:22)
[2020-12-06 20:30] LABS: Glucose,Whole Blood 164 mg/dL (75-99)
[2020-12-06] MEDS ORDERED: AZITHROMYCIN 500 MG TAB PO SCH (22:00)
[2020-12-07] MEDS: SODIUM CHLORIDE 0.9% 1,000 ML IV SCH (03:10)
[2020-12-07] MEDS: PANTOPRAZOLE 40 MG TABLET PO SCH (05:57)
[2020-12-07] MEDS: INSULIN ASPART (NovoLOG) 100 UNIT/ML VIAL SQ SCH (06:02)
[2020-12-07 06:30] LABS: Glucose,Whole Blood 135 mg/dL (75-99)
[2020-12-07] MEDS: SYMBICORT 160-4.5 MCG INHALER INHALATION SCH (07:42)
[2020-12-07] MEDS: IPRATROPIUM-ALBUTEROL 3 ML NEB INHALATION SCH (07:42)
--- NOTE | 2020-12-07 08:52 | PN ---
PROGRESS NOTE Mrs. Mills is doing well from a cardiac standpoint. BP control is good. She still has some wheezing. She has been given some steroids and bronchodilators. Once this is optimized, she can be discharged. No intervention from a cardiac standpoint. Vitals are stable. No JVD. S1-S2 heard normally. Lungs reveal scattered rhonchi. Abdomen, lower extremity exam unchanged. Rest of physical exam unchanged. PLAN: I will see her as necessary from a cardiac standpoint. MMODL / IJN: [id number] /
[2020-12-07] MEDS: HEPARIN SODIUM,PORCINE/PF 5,000 UNIT/0.5 ML SYRINGE SQ SCH (09:14)
[2020-12-07] MEDS: methylPREDNISolone SOD SUCCI 40 MG/ML 1 ML VIAL IV SCH (09:14)
[2020-12-07] MEDS: LOSARTAN 50 MG TAB PO SCH (09:15)
[2020-12-07] MEDS: METOPROLOL TARTRATE 25 MG TAB PO SCH (09:15)
[2020-12-07] MEDS: ASPIRIN 81 MG PO SCH (09:15)
[2020-12-07] MEDS: amLODIPine 10 MG TAB PO SCH (09:15)
[2020-12-07] MEDS: SENNOSIDES-DOCUSATE SODIUM 1 EACH TAB PO SCH (09:15)
[2020-12-07 10:36] VITALS: BP 147/70; PULSE 113; RESP 16; TEMP 97.2
--- NOTE | 2020-12-07 10:43 | P.DS ---
Providers Date of admission: 12/05/20 00:05 Attending physician: Pepe Shine Consults: 12/05/20 09:41 Consult Physician Routine Consulting Provider: Da Gilbert Consult Reason/Comments: copd exac Do you want consulting provider notified?: Yes Primary care physician: Pepe Shine [facility] Course: HISTORY OF PRESENT ILLNESS This is an 85-year-old female patient of Drs. Shine, JUDY Dietz and Vladimir with past medical history of hypertension, hyperlipidemia, COPD and chronic hypoxic respiratory failure on home O2. Patient's last hospitalization was in 2018 which time she was treated for acute hypoxic respiratory failure secondary to COPD exacerbation, sepsis and pneumonia. Patient states that she recently changed her PCP to Dr. Shine has been seen by the nurse practitioner in the office. She states she also had an appointment with Dr. Gilbert last week and was feeling fine at that time. She is complaining of chest pain, fever, cough with sputum production that has been going on for almost a week. Patient also states that she has abdominal pain which feels like knots in her abdomen and she has appointments to see Dr. Thomas. She states this happens and goes away on its own every couple weeks. She denies any abdominal pain or tenderness at this time. She has not had a bowel movement for a couple days. She denies having any black stools. Patient came into [facility] emergency center for evaluation. Temperature was 100.9, heart rate 122, respiratory rate 26, blood pressure 150/75, pulse ox 93% on room air. EKG is a sinus rhythm with no acute ST changes. Chest x-ray revealed no acute cardio pulmonary disease. CBC was unremarkable. Electrolytes and renal function were normal. Blood sugar 111. Lactic acid 1.5. Liver function tests were normal. LDH 657. Coronavirus PCR not detected. Troponin negative 2 draws. Patient was placed on the cardiac stepdown unit. Consults requested with cardiology. Pulmonary medicine. 12/06: Patient is found ambulating in her room without oxygen. She states that she is feeling a lot better from yesterday and is walking so that she will be able to go home today. She continues to have wheezing for which we will plan to keep her here for another 24-48 hours and continue Solu-Medrol. Regarding prednisone intolerance, patient may be able to take Medrol Dosepak at home. She states that she is weak and tired as she has not been able to sleep here. She continues to have a congestive cough with some sputum production. She has been afebrile, heart rate 87, blood pressure 134/74, pulse ox 90% on room air. Capillary blood glucose running between 115 and 171. Anticipate probable discharge home tomorrow. 12/07: Resting comfortably in chair. Patient continues to have cough however she has no shortness of breath. She is anxious to go home. Due to her intolerance of prednisone we will send her home on dexamethadone. Discussed in length with patient regarding right knee pain. Encourage patient to utilize cane and a knee brace. Patient verbalized understanding. Patient has home to oxygen at home. We will send her home on oral steroids and a oral antibiotic for 10 days. ASSESSMENT AND PLAN 1. Chest pain with normal troponins, acute coronary syndrome ruled out. 2. COPD exacerbation and acute purulent tracheobronchitis. 3. Hypertension. 4. Hyperlipidemia.. 5. Chronic hypoxic respiratory failure on home O2. DISCHARGE Disposition Home Impression and plan of care have been directed as dictated by the signing physician. Sasha Wilde nurse practitioner acting as scribe for signing physician. Patient Condition at Discharge: Fair Plan - Discharge Summary New Discharge Prescriptions: New Azithromycin [Zithromax] 500 mg PO DAILY #7 tab Dexamethasone [Decadron] 4 mg PO DAILY 14 Days tablet Continue Losartan Potassium 100 mg PO DAILY amLODIPine BESYLATE [Norvasc] 10 mg PO DAILY Metoprolol Tartrate [Lopressor] 25 mg PO DAILY Albuterol Nebulized [Ventolin Nebulized] 2.5 mg INHALATION RT-QID PRN PRN Reason: Shortness Of Breath Aspirin EC [Ecotrin Low Dose] 81 mg PO DAILY Fluticasone Propion/Salmeterol [Wixela 500-50 Inhub] 1 puff INHALATION RT-BID PRN PRN Reason: Shortness Of Breath Discharge Medication List Losartan Potassium 100 mg PO DAILY 10/30/14 [History] amLODIPine BESYLATE [Norvasc] 10 mg PO DAILY 02/02/18 [History] Albuterol Nebulized [Ventolin Nebulized] 2.5 mg INHALATION RT-QID PRN 04/28/19 [History] Metoprolol Tartrate [Lopressor] 25 mg PO DAILY 04/28/19 [History] Aspirin EC [Ecotrin Low Dose] 81 mg PO DAILY 12/04/20 [History] Fluticasone Propion/Salmeterol [Wixela 500-50 Inhub] 1 puff INHALATION RT-BID PRN 12/04/20 [History] Azithromycin [Zithromax] 500 mg PO DAILY #7 tab 12/07/20 [Rx] Dexamethasone [Decadron] 4 mg PO DAILY 14 Days tablet 12/07/20 [Rx] Follow up Appointment(s)/Referral(s): Rio Dietz MD [STAFF PHYSICIAN] - 2 Weeks Pepe Shine MD [Primary Care Provider] - 1-2 days Patient Instructions/Handouts: COPD (Chronic Obstructive Pulmonary Disease) (DC)
--- NOTE | 2020-12-07 13:27 | P.PN ---
Subjective Progress Note Date: 12/07/20 This is a very pleasant 85-year-old female patient with a known history of hypertension, ALLERGIC rhinitis, previous pseudomonas aeruginosa cultured and her lungs in 2019, chronic obstructive pulmonary disease maintained on Wixela, Spiriva, albuterol. FEV1 value 74% of predicted. She follows with Dr. Gilbert in our office. She presented to the emergency room yesterday with complaints of chest discomfort, fever, sweating, weakness. His any temperature 100.9. She was 93% O2 saturation on room air. Chest x-ray reveals no acute cardiopulmonary process. White count 5.1. Hemoglobin 13.6. Sodium 140. Potassium 3.8. Creatinine 0.55. Glucose 127. Troponins negative 2. ProBNP 58. Ventura virus not detected. Pro-calcitonin pending. Urinalysis pending. She is seen today in consultation on the selective care unit. She is currently laying comfortably in bed. Awake and alert in no acute distress. She is breathing a bit easier today compared to yesterday. She is still somewhat bronchospastic and wheezy. Dyspneic on exertion. Most recent temperature 99.9. She's been initiated on Du oNeb inhalations, Symbicort, IV Solu-Medrol. 0.9 normal saline at 100 ML's per hour. Antibiotics in the form of ceftriaxone and azithromycin. On 12/06/2020 patient seen in follow-up on selective care unit, she states she is breathing easier, still has a congested cough, mild wheezing, but overall improving. Vital signs have been stable, rheumatic pulse ox is 98%, afebrile, remains on antibiotics in the form of azithromycin and Rocephin, she is on nebulized bronchodilators and IV steroids with Solu-Medrol 40 mg every 8 hours. Patient is up in a chair, she is tolerating activity well. Blood and sputum cultures have been sent, thus far they are negative. The patient is seen today 12/07/2020 in follow-up on the selective care unit. She is currently sitting up in a chair at the bedside. Awake and alert in no acute distress. Feeling nearly back to her baseline. Anxious to go home. He is maintaining good O2 saturations in the 90s on room air. Afebrile. Hemodynamically stable blood cultures reveal no growth. Sputum culture revealed no growth. Glucose 135. She is continued on Symbicort, DuoNeb inhalations, IV Solu-Medrol. Antibiotics in the form of ceftriaxone and azithromycin. Objective - Vital Signs Vital signs: Vital Signs Temp 97.2 F L 12/07/20 09:10 Pulse 113 H 12/07/20 09:10 Resp 16 12/07/20 09:10 BP 147/70 12/07/20 09:10 Pulse Ox 97 12/07/20 09:10 Intake & Output 12/06/20 12/07/20 12/07/20 18:59 06:59 18:59 Intake Total 320 Output Total 300 Balance -300 320 Weight 81.8 kg Intake: Oral 320 Output: Urine 300 Other: # Voids 1 1 - Exam GENERAL EXAM: Alert, very pleasant, 85-year-old female, on room air with a pulse ox of 92% comfortable in no apparent distress. HEAD: Normocephalic/atraumatic. EYES: Normal reaction of pupils, equal size. Conjunctiva pink, sclera white. NOSE: Clear with pink turbinates. THROAT: No erythema or exudates. NECK: No masses, no JVD, no thyroid enlargement, no adenopathy. CHEST: No chest wall deformity. Symmetrical expansion. LUNGS: Equal air entry with some scattered wheezes, CVS: Regular rate and rhythm, normal S1 and S2, no gallops, no murmurs, no rubs ABDOMEN: Soft, nontender. No hepatosplenomegaly, normal bowel sounds, no guarding or rigidity. EXTREMITIES: No clubbing, no edema, no cyanosis, 2+ pulses and upper and lower extremities. MUSCULOSKELETAL: Muscle strength and tone normal. SPINE: No scoliosis or deformity SKIN: No rashes CENTRAL NERVOUS SYSTEM: Alert and oriented -3. No focal deficits, tone is normal in all 4 extremities. PSYCHIATRIC: Alert and oriented -3. Appropriate affect. Intact judgment and insight. - Labs CBC & Chem 7: 12/05/20 10:12 12/05/20 10:12 Labs: Abnormal Lab Results - Last 24 Hours (Table) 12/06/20 12/06/20 12/07/20 Range/Units 16:56 20:28 05:59 POC Glucose (mg/dL) 147 H 164 H 135 H (75-99) mg/dL Microbiology - Last 24 Hours (Table) 12/05/20 00:55 Blood Culture - Preliminary Blood No Growth after 48 hours 12/05/20 00:38 Blood Culture - Preliminary Blood No Growth after 48 hours 12/04/20 22:45 Blood Culture - Preliminary Blood No Growth after 48 hours 12/04/20 22:34 Blood Culture - Preliminary Blood No Growth after 48 hours Assessment and Plan Assessment: 1 Febrile illness of unclear etiology. Chest x-ray shows no acute pulmonary process. No leukocytosis. Pro-calcitonin pending. Urinalysis pending. 2 Acute exacerbation of chronic obstructive pulmonary disease. 3 History of hypertension 4 History of hyperlipidemia 5 Former smoker Plan: The patient was seen and evaluated by Dr. Carney Cleared for discharge from the pulmonary standpoint Complete a prednisone taper Complete a course of antibiotics Follow-up in the office in 1-2 weeks' I, the cosigning physician, performed a history & physical examination of the patient. Lungs sounds with bilateral end expiratory wheeze, diminished. Maintaining good O2 saturations in the 90s on room air. I discussed the ass essment and plan of care with my nurse practitioner, Teresa Alejandro. I attest to the above note as dictated by her.
== END 2020-12-07 10:56 | disposition home or self-care (01) | DRG 191 ==
LOC: EC 21:34 → 3SCARD 12-05 00:05
PROVIDERS: ADMIT Internal Medicine Geriatric Medicine; ATTEND Internal Medicine Geriatric Medicine
DX: J44.1 Chronic obstructive pulmonary disease with (acute) exacerbation (principal); J96.11 Chronic respiratory failure with hypoxia; J44.0 Chronic obstructive pulmonary disease with (acute) lower respiratory infection; K59.00 Constipation, unspecified; J20.9 Acute bronchitis, unspecified; M19.90 Unspecified osteoarthritis, unspecified site; N39.3 Stress incontinence (female) (male); Z87.01 Personal history of pneumonia (recurrent); E78.5 Hyperlipidemia, unspecified; Z87.891 Personal history of nicotine dependence; H91.90 Unspecified hearing loss, unspecified ear; I10 Essential (primary) hypertension; I25.2 Old myocardial infarction; I27.20 Pulmonary hypertension, unspecified; H93.13 Tinnitus, bilateral; K76.9 Liver disease, unspecified; H26.9 Unspecified cataract; J30.9 Allergic rhinitis, unspecified; Z20.822 Contact with and (suspected) exposure to COVID-19; R00.0 Tachycardia, unspecified; Z79.82 Long term (current) use of aspirin; Z79.899 Other long term (current) drug therapy; Z80.0 Family history of malignant neoplasm of digestive organs; Z80.1 Family history of malignant neoplasm of trachea, bronchus and lung; Z82.5 Family history of asthma and other chronic lower respiratory diseases; Z87.11 Personal history of peptic ulcer disease; Z90.710 Acquired absence of both cervix and uterus; Z86.010 Personal history of colon polyps; Z90.49 Acquired absence of other specified parts of digestive tract; Z98.41 Cataract extraction status, right eye; Z80.42 Family history of malignant neoplasm of prostate; Z99.81 Dependence on supplemental oxygen; Z88.5 Allergy status to narcotic agent; Z88.8 Allergy status to other drugs, medicaments and biological substances
CPT/HCPCS: 36415; 71045; 71046; 80048; 80053; 81003; 82728; 83605; 83615; 83735; 83880; 84145; 84484; 85025; 85610; 85730; 86140; 87040; 87070; 87205; 87635; 93005; 94640; 94760; 96360; 99291

== ENCOUNTER 2021-03-16 22:06 | Inpatient (IN) | payer MEDICARE, BC ==
--- NOTE | 2021-03-16 22:48 | XR ---
EXAMINATION TYPE: XR chest 1V DATE OF EXAM: 03/16/2021 COMPARISON: 12/06/2020 HISTORY: Short of breath TECHNIQUE: Single view FINDINGS: Heart and mediastinum are normal. Lungs are clear of infiltrate. There is small linear dens ity left lung base. There are no hilar masses. Thoracic aorta is atheromatous. IMPRESSION: There is minimal subsegmental atelectasis at the left lung base that is new compared to o ld exam. Normal heart.
[2021-03-17] MEDS ORDERED: ACETAMINOPHEN TAB 325 MG TAB PO STA (00:12)
[2021-03-17 01:13] LABS: Basophils # (A) 0.1 k/uL (0-0.2); Basophils % (A) 1 %; Eosinophils % (A) 0 %; HCT 46.7 % (34.0-46.0); HGB 15.3 gm/dL (11.4-16.0); Lymphocytes % (A) 11 %; MCH 31.5 pg (25.0-35.0); MCHC 32.7 g/dL (31.0-37.0); MCV 96.2 fL (80.0-100.0); Mean Platelet Volume 9.1; Monocytes # (A) 0.5 k/uL (0-1.0); Monocytes % (A) 6 %; Neutrophils % (A) 80 %; Platelet Count 327 k/uL (150-450); RBC 4.86 m/uL (3.80-5.40); RDW 12.4 % (11.5-15.5); WBC 8.8 k/uL (3.8-10.6)
[2021-03-17 01:30] LABS: ALT 21 U/L (4-34); AST 38 U/L (14-36); African American GFR (CKD) >90 (>60 ml/min/1.73 sqM); Albumin 4.5 g/dL (3.5-5.0); Alkaline Phosphatase 112 U/L (38-126); Anion Gap 12 mmol/L; Blood Urea Nitrogen 13 mg/dL (7-17); Calcium 9.5 mg/dL (8.4-10.2); Carbon Dioxide 26 mmol/L (22-30); Chloride 101 mmol/L (98-107); Glucose 119 mg/dL (74-99); Magnesium 2.2 mg/dL (1.6-2.3); Non-African American GFR(CKD) 82 (>60 ml/min/1.73 sqM); Potassium 4.3 mmol/L (3.5-5.1); Sodium 139 mmol/L (137-145); Total Bilirubin 0.7 mg/dL (0.2-1.3); Total Protein 7.5 g/dL (6.3-8.2)
[2021-03-17 01:32] LABS: INR 0.9 (<1.2)
[2021-03-17 01:33] LABS: Appearance,Urine Clear (Clear); Bilirubin,Urine Negative (Negative); Blood,Urine Trace (Negative); Color,Urine Yellow; Glucose,Urine (UA) Negative (Negative); Ketones,Urine 2+ (Negative); Leukocyte Esterase,Urine Negative (Negative); Mucus,Urine Occasional /hpf; Nitrite,Urine Negative (Negative); PH, Urine 5.5 (5.0-8.0); Protein,Urine 1+ (Negative); RBC,Urine 1 /hpf (0-5); Specific Gravity,Urine 1.022 (1.001-1.035); Squamous Epithelial Cell,Urine <1 /hpf (0-4); Urobilinogen,Urine <2.0 mg/dL (<2.0); WBC,Urine 1 /hpf (0-5)
[2021-03-17] MEDS ORDERED: ALBUTEROL NEBULIZED 2.5 MG/3 ML INHALATION STA (01:46)
[2021-03-17] MEDS ORDERED: ALBUTEROL NEBULIZED 2.5 MG/3 ML INHALATION PRN (02:22)
[2021-03-17] MEDS ORDERED: PNEUMONIA PROTOCOL UTILIZED 1 EACH MISC PO PRN (02:22)
[2021-03-17] MEDS ORDERED: AZITHROMYCIN 500 MG in SODIUM CHLORIDE 0.9% 250 ML IVPB ONE (02:30)
[2021-03-17] MEDS: SODIUM CHLORIDE 0.9% 1,000 ML IV SCH (03:47)
--- NOTE | 2021-03-17 04:18 | CT ---
EXAMINATION TYPE: CT chest angio for PE DATE OF EXAM: 03/17/2021 COMPARISON: 08/08/2018 HISTORY: elevated d-dimer CT DLP: 346.9 mGycm Automated exposure control for dose reduction was used. CONTRAST: Performed with IV Contrast, patient injected with 60 mL of Isovue 370. There are 3-D post processed images. There is bullous pulmonary emphysema. There is no mediastinal adenopathy. There are no hilar masses. Heart size is normal. There is some mild infiltrate and atelectasis at the posterior lung bases. Ther e is 5.7 cm rounded fluid density in the left lobe of the liver consistent with a simple cyst. Spleen is intact. There are no hilar masses. There are bilateral bronchial lymph nodes that measure up to 1 2 mm. There is no mediastinal adenopathy. There is a single 14 by 8mm anterior mediastinal lymph node . There is some spurring in the thoracic spine. There is no compression fracture. Thoracic aorta is intact. There is no aneurysm or dissection. There is normal contrast opacification of the pulmonary arteries. There are no filling defects. IMPRESSION: No evidence of pulmonary embolism. Bullous pulmonary emphysema. There are a few mediastinal and bronc hial lymph nodes which are probably inflammatory. There is infiltrate and atelectasis at the lung ba ses. Chest appears not significantly different than old CT scan.
--- NOTE | 2021-03-17 06:26 | ED ---
SOB HPI - General Chief Complaint: Shortness of Breath Stated Complaint: KATIA Time Seen by Provider: 03/16/21 22:47 Source: patient Mode of arrival: wheelchair Limitations: no limitations - History of Present Illness Initial Comments: this patient is an 85-year-old woman who presents here with complaint of dyspnea. The patient states she believes that her asthma is flaring up. She had gone on an 8 day bus tour through [facility], and she states that she started feeling somewhat short of breath beginning on Wednesday evening. She states that the symptoms continued to worsen until she returned home and so she comes here for evaluation. Patient states she also may have been having fevers. She denies symptoms of DVT or PE. No leg pain or swelling. No chest pain, palpitations or hemoptysis. MD Complaint: shortness of breath, cough, "asthma attack" Onset/Timin -: days(s) Consistency: constant Improves With: bronchodilators Worsens With: nothing Known History Of: asthma Context: recent travel Associated Symptoms: cough Treatments Prior to Arrival: bronchodilator - Related Data Home Oxygen Therapy: No Home Medications Medication Instructions Recorded Confirmed Losartan Potassium 100 mg PO DAILY 10/30/14 12/04/20 amLODIPine BESYLATE [Norvasc] 10 mg PO DAILY 02/02/18 12/04/20 Albuterol Nebulized [Ventolin 2.5 mg INHALATION RT-QID PRN 04/28/19 12/04/20 Nebulized] Metoprolol Tartrate [Lopressor] 25 mg PO DAILY 04/28/19 12/04/20 Aspirin EC [Ecotrin Low Dose] 81 mg PO DAILY 12/04/20 12/04/20 Fluticasone Propion/Salmeterol 1 puff INHALATION RT-BID PRN 12/04/20 12/04/20 [Wixela 500-50 Inhub] Previous Rx's Medication Instructions Recorded Azithromycin [Zithromax] 500 mg PO DAILY #7 tab 12/07/20 Dexamethasone [Decadron] 4 mg PO DAILY 14 Days tablet 12/07/20 Allergies Allergy/AdvReac Type Severity Reaction Status Date / Time hydrocodone bitartrate AdvReac states Verified 03/16/21 22:18 [From Vicodin] "doesn't make me feel good" prednisone AdvReac Hallucinati Verified 10/03/21 22:18 ons Review of Systems ROS Statement: Those systems with pertinent positive or pertinent negative responses have been documented in the HPI. ROS Other: All systems not noted in ROS Statement are negative. Constitutional: Denies: fever, chills, weakness ENT: Denies: congestion Respiratory: Reports: cough, dyspnea, wheezes. Denies: hemoptysis Cardiovascular: Denies: chest pain, palpitations, orthopnea, edema, syncope Gastrointestinal: Denies: abdominal pain, vomiting, diarrhea Genitourinary: Denies: dysuria, hematuria Musculoskeletal: Denies: back pain Skin: Denies: rash Neurological: Denies: headache, weakness, numbness Past Medical History Past Medical History: Asthma, COPD, Eye Disorder, Hearing Disorder / Deafness, Hyperlipidemia, Hypertension, Liver Disease, Osteoarthritis (OA) Additional Past Medical History / Comment(s): Hx stomach ulcer, cysts on liver >20 years, urinary leakage, small hiatal hernia, diverticulosis, tinnitus bilateral ears, left cataract, Pneumonia 2018. Uses Oxygen PRN. Last Myocardial Infarction Date:: 40 years ago History of Any Multi-Drug Resistant Organisms: None Reported Past Surgical History: Cholecystectomy, Hysterectomy, Orthopedic Surgery Additional Past Surgical History / Comment(s): KNEE arthroscopy-UNSURE WHICH SIDE, COLONOSCOPY-LARGE POLYP REMOVED, EGD, right cataract removed. Past Anesthesia/Blood Transfusion Reactions: No Reported Reaction Additional Past Anesthesia/Blood Transfusion Reaction / Comment(s): No hx blood transfusion. Past Psychological History: No Psychological Hx Reported Smoking Status: Former smoker Past Alcohol Use History: Occasional Past Drug Use History: None Reported - Past Family History Sister(s) Family Medical History: Cancer Additional Family Medical History / Comment(s): #1 sister colon cancer, # 2 sister lung cancer. Father Family Medical History: Cancer Additional Family Medical History / Comment(s): Prostate cancer. Mother Family Medical History: Asthma Additional Family Medical History / Comment(s): Heart problems. General Exam Limitations: no limitations General appearance: alert, in distress Head exam: Present: atraumatic, normocephalic Eye exam: Present: normal appearance. Absent: scleral icterus, conjunctival injection ENT exam: Present: normal oropharynx Neck exam: Present: normal inspection, full ROM. Absent: meningismus Respiratory exam: Present: respiratory distress (tachypnea), wheezes, prolonged expiratory. Absent: rales, rhonchi, stridor, decreased breath sounds Cardiovascular Exam: Present: tachycardia, normal heart sounds. Absent: systolic murmur, diastolic murmur, rubs, gallop GI/Abdominal exam: Present: soft. Absent: distended, tenderness, guarding, rebound, rigid, mass, pulsatile mass, hernia Extremities exam: Present: normal inspection, normal capillary refill. Absent: pedal edema, calf tenderness Back exam: Present: normal inspection. Absent: CVA tenderness (R), CVA tenderness (L) Neurological exam: Present: alert Skin exam: Present: warm, dry, intact, normal color. Absent: rash Course Vital Signs 03/16/21 03/16/21 03/16/21 22:15 22:18 22:30 Temperature 98.8 F 102.9 F H Pulse Rate 146 H 135 H 124 H Respiratory 50 H 40 H 20 Rate Blood Pressure 167/91 134/77 O2 Sat by Pulse 75 L 100 99 Oximetry 03/16/21 03/17/21 03/17/21 23:00 00:00 00:32 Temperature Pulse Rate 116 H 113 H 120 H Respiratory 20 20 30 H Rate Blood Pressure 138/86 145/86 O2 Sat by Pulse 100 96 Oximetry 03/17/21 03/17/21 03/17/21 01:38 01:52 02:10 Temperature 99.1 F Pulse Rate 117 H 112 H Respiratory 24 22 Rate Blood Pressure 148/20 O2 Sat by Pulse 95 Oximetry 03/17/21 03/17/21 02:21 05:14 Temperature 98.5 F Pulse Rate 118 H 101 H Respiratory 20 Rate Blood Pressure 114/75 O2 Sat by Pulse 97 Oximetry Medical Decision Making - Lab Data Result diagrams: 03/17/21 00:00 03/17/21 00:00 Lab Results 03/17/21 03/17/21 03/17/21 Range/Units 00:00 00:00 00:00 WBC 8.8 (3.8-10.6) k/uL RBC 4.86 (3.80-5.40) m/uL Hgb 15.3 (11.4-16.0) gm/dL Hct 46.7 H (34.0-46.0) % MCV 96.2 (80.0-100.0) fL MCH 31.5 (25.0-35.0) pg MCHC 32.7 (31.0-37.0) g/dL RDW 12.4 (11.5-15.5) % Plt Count 327 (150-450) k/uL MPV 9.1 Neutrophils % 80 % Lymphocytes % 11 % Monocytes % 6 % Eosinophils % 0 % Basophils % 1 % Neutrophils # 7.0 (1.3-7.7) k/uL Lymphocytes # 1.0 (1.0-4.8) k/uL Monocytes # 0.5 (0-1.0) k/uL Eosinophils # 0.0 (0-0.7) k/uL Basophils # 0.1 (0-0.2) k/uL PT 10.0 (9.0-12.0) sec INR 0.9 (<1.2) APTT 23.0 (22.0-30.0) sec D-Dimer 0.69 H (<0.60) mg/L FEU Sodium 139 (137-145) mmol/L Potassium 4.3 (3.5-5.1) mmol/L Chloride 101 (98-107) mmol/L Carbon Dioxide 26 (22-30) mmol/L Anion Gap 12 mmol/L BUN 13 (7-17) mg/dL Creatinine 0.67 (0.52-1.04) mg/dL Est GFR (CKD-EPI)AfAm >90 (>60 ml/min/1.73 sqM) Est GFR (CKD-EPI)NonAf 82 (>60 ml/min/1.73 sqM) Glucose 119 H (74-99) mg/dL Plasma Lactic Acid Jace (0.7-2.0) mmol/L Calcium 9.5 (8.4-10.2) mg/dL Magnesium 2.2 (1.6-2.3) mg/dL Total Bilirubin 0.7 (0.2-1.3) mg/dL AST 38 H (14-36) U/L ALT 21 (4-34) U/L Alkaline Phosphatase 112 (38-126) U/L Troponin I (0.000-0.034) ng/mL Total Protein 7.5 (6.3-8.2) g/dL Albumin 4.5 (3.5-5.0) g/dL Urine Color Urine Appearance (Clear) Urine pH (5.0-8.0) Ur Specific Orange (1.001-1.035) Urine Protein (Negative) Urine Glucose (UA) (Negative) Urine Ketones (Negative) Urine Blood (Negative) Urine Nitrite (Negative) Urine Bilirubin (Negative) Urine Urobilinogen (<2.0) mg/dL Ur Leukocyte Esterase (Negative) Urine RBC (0-5) /hpf Urine WBC (0-5) /hpf Ur Squamous Epith Cells (0-4) /hpf Urine Mucus (None) /hpf Coronavirus (PCR) (Not Detectd) 03/17/21 03/17/21 03/17/21 Range/Units 00:00 00:38 00:38 WBC (3.8-10.6) k/uL RBC (3.80-5.40) m/uL Hgb (11.4-16.0) gm/dL Hct (34.0-46.0) % MCV (80.0-100.0) fL MCH (25.0-35.0) pg MCHC (31.0-37.0) g/dL RDW (11.5-15.5) % Plt Count (150-450) k/uL MPV Neutrophils % % Lymphocytes % % Monocytes % % Eosinophils % % Basophils % % Neutrophils # (1.3-7.7) k/uL Lymphocytes # (1.0-4.8) k/uL Monocytes # (0-1.0) k/uL Eosinophils # (0-0.7) k/uL Basophils # (0-0.2) k/uL PT (9.0-12.0) sec INR (<1.2) APTT (22.0-30.0) sec D-Dimer (<0.60) mg/L FEU Sodium (137-145) mmol/L Potassium (3.5-5.1) mmol/L Chloride (98-107) mmol/L Carbon Dioxide (22-30) mmol/L Anion Gap mmol/L BUN (7-17) mg/dL Creatinine (0.52-1.04) mg/dL Est GFR (CKD-EPI)AfAm (>60 ml/min/1.73 sqM) Est GFR (CKD-EPI)NonAf (>60 ml/min/1.73 sqM) Glucose (74-99) mg/dL Plasma Lactic Acid Jace (0.7-2.0) mmol/L Calcium (8.4-10.2) mg/dL Magnesium (1.6-2.3) mg/dL Total Bilirubin (0.2-1.3) mg/dL AST (14-36) U/L ALT (4-34) U/L Alkaline Phosphatase (38-126) U/L Troponin I 0.040 H* (0.000-0.034) ng/mL Total Protein (6.3-8.2) g/dL Albumin (3.5-5.0) g/dL Urine Color Yellow Urine Appearance Clear (Clear) Urine pH 5.5 (5.0-8.0) Ur Specific Orange 1.022 (1.001-1.035) Urine Protein 1+ H (Negative) Urine Glucose (UA) Negative (Negative) Urine Ketones 2+ H (Negative) Urine Blood Trace H (Negative) Urine Nitrite Negative (Negative) Urine Bilirubin Negative (Negative) Urine Urobilinogen <2.0 (<2.0) mg/dL Ur Leukocyte Esterase Negative (Negative) Urine RBC 1 (0-5) /hpf Urine WBC 1 (0-5) /hpf Ur Squamous Epith Cells <1 (0-4) /hpf Urine Mucus Occasional H (None) /hpf Coronavirus (PCR) Not Detected (Not Detectd) 03/17/21 Range/Units 00:52 WBC (3.8-10.6) k/uL RBC (3.80-5.40) m/uL Hgb (11.4-16.0) gm/dL Hct (34.0-46.0) % MCV (80.0-100.0) fL MCH (25.0-35.0) pg MCHC (31.0-37.0) g/dL RDW (11.5-15.5) % Plt Count (150-450) k/uL MPV Neutrophils % % Lymphocytes % % Monocytes % % Eosinophils % % Basophils % % Neutrophils # (1.3-7.7) k/uL Lymphocytes # (1.0-4.8) k/uL Monocytes # (0-1.0) k/uL Eosinophils # (0-0.7) k/uL Basophils # (0-0.2) k/uL PT (9.0-12.0) sec INR (<1.2) APTT (22.0-30.0) sec D-Dimer (<0.60) mg/L FEU Sodium (137-145) mmol/L Potassium (3.5-5.1) mmol/L Chloride (98-107) mmol/L Carbon Dioxide (22-30) mmol/L Anion Gap mmol/L BUN (7-17) mg/dL Creatinine (0.52-1.04) mg/dL Est GFR (CKD-EPI)AfAm (>60 ml/min/1.73 sqM) Est GFR (CKD-EPI)NonAf (>60 ml/min/1.73 sqM) Glucose (74-99) mg/dL Plasma Lactic Acid Jace 1.1 (0.7-2.0) mmol/L Calcium (8.4-10.2) mg/dL Magnesium (1.6-2.3) mg/dL Total Bilirubin (0.2-1.3) mg/dL AST (14-36) U/L ALT (4-34) U/L Alkaline Phosphatase (38-126) U/L Troponin I (0.000-0.034) ng/mL Total Protein (6.3-8.2) g/dL Albumin (3.5-5.0) g/dL Urine Color Urine Appearance (Clear) Urine pH (5.0-8.0) Ur Specific Orange (1.001-1.035) Urine Protein (Negative) Urine Glucose (UA) (Negative) Urine Ketones (Negative) Urine Blood (Negative) Urine Nitrite (Negative) Urine Bilirubin (Negative) Urine Urobilinogen (<2.0) mg/dL Ur Leukocyte Esterase (Negative) Urine RBC (0-5) /hpf Urine WBC (0-5) /hpf Ur Squamous Epith Cells (0-4) /hpf Urine Mucus (None) /hpf Coronavirus (PCR) (Not Detectd)
[2021-03-17] MEDS ORDERED: SODIUM CHLORIDE 0.9% 500 ML 500 ML IV STA (06:43)
[2021-03-17] MEDS: ACETAMINOPHEN TAB 325 MG TAB PO PRN ×3 (07:25→20:24)
[2021-03-17] MEDS: SYMBICORT 160-4.5 MCG INHALER INHALATION PRN ×2 (07:40→21:03)
[2021-03-17] MEDS: IPRATROPIUM-ALBUTEROL 3 ML NEB INHALATION SCH ×4 (07:40→21:02)
[2021-03-17] MEDS: ENOXAPARIN 40 MG/0.4 ML SYRINGE SQ SCH (08:36)
[2021-03-17] MEDS: ASPIRIN 81 MG PO SCH (08:36)
[2021-03-17] MEDS: LOSARTAN 50 MG TAB PO SCH (08:36)
[2021-03-17] MEDS: FAMOTIDINE 20 MG TAB PO SCH ×2 (08:36→21:59)
[2021-03-17] MEDS ORDERED: dexAMETHasone 4 MG TAB PO SCH (09:00)
[2021-03-17] MEDS ORDERED: METOPROLOL TARTRATE 25 MG TAB PO SCH (09:00)
[2021-03-17] MEDS ORDERED: amLODIPine 10 MG TAB PO SCH (09:00)
[2021-03-17] MEDS ORDERED: HEPARIN SODIUM,PORCINE/PF 5,000 UNIT/0.5 ML SYRINGE SQ SCH (09:00)
--- NOTE | 2021-03-17 09:40 | P.HPIM ---
History of Present Illness Patient was an 85-year-old female with advanced COPD and emphysema doesn't use any oxygen but uses Floxin on as-needed basis came up a day trip from [facility] with complaints of fever which started about 3 days ago and severe shortness of breath is started about 4 days ago. Patient was in words denied any tick bite. Patient is coughing a phlegm patient denied any dysuria denied any abdominal pain nausea vomiting diarrhea. Patient was having mild headache without any photophobia or neck rigidity. Patient had mildly elevated d-dimer because of which patient had a CT angios the chest which did not show any infiltrate consistent with pneumonia although there is some mild nonspecific infiltrate in the left lower lung dutta because of which patient was started on antibiotics for a pneumonia. Patient has mildly elevated troponins of 0.04 and 0.06, EKG did not show any acute ST-T wave changes. Patient was tested for Covid 19 PCR of which is negative ordering influenza as well. Patient is bit tachycardic does have history of atrial fibrillation, not on any anticoagulation at this time. REVIEW OF SYSTEMS: CONSTITUTIONAL: As mentioned in HPI HEENT: No recent visual problems or hearing problems. Denied any sore throat. CARDIOVASCULAR: No chest pain, orthopnea, PND, no palpitations, no syncope. PULMONARY: no hemoptysis. GASTROINTESTINAL: No diarrhea, no nausea, no vomiting, no abdominal pain. NEUROLOGICAL: No headaches, no weakness, no numbness. HEMATOLOGICAL: Denies any bleeding or petechiae. GENITOURINARY: Denies any burning micturition, frequency, or urgency. MUSCULOSKELETAL/RHEUMATOLOGICAL: Denies any joint pain, swelling, or any muscle pain. ENDOCRINE: Denies any polyuria or polydipsia. The rest of the 14-point review of systems is negative. PHYSICAL EXAMINATION: GENERAL: The patient is alert and oriented x3, and is in respiratory distress well developed, well nourished. HEENT: Pupils are round and equally reacting to light. EOMI. No scleral icterus. No conjunctival pallor. Normocephalic, atraumatic. No pharyngeal erythema. No thyromegaly. CARDIOVASCULAR: S1 and S2 present. No murmurs, rubs, or gallops. Tachycardic irregularly irregular rhythm PULMONARY significant expiratory wheezing on exam ABDOMEN: Soft, nontender, nondistended, normoactive bowel sounds. No palpable organomegaly. MUSCULOSKELETAL: No joint swelling or deformity. EXTREMITIES: No cyanosis, clubbing, or pedal edema. NEUROLOGICAL: Gross neurological examination did not reveal any focal deficits. SKIN: No rashes. Assessment and plan -Fever without any leukocytosis etiology of fever is not clear, we'll order urinary Legionella antigen and mycoplasma antibody patient to probably need to be checked for tick bite, infectious disease will be consulted as is. Infection is not clear will also order influenza. For now we'll continue with the Rocephin and azithromycin pulmonary was consulted as well as. -Acute hypoxic and hypercapnic yesterday failure secondary to COPD exacerbation patient will be continued on steroids patient is on Decadron patient states she has significant side effects from Solu-Medrol and prednisone in the past. Patient will be continued on DuoNeb nebulizations -Mild elevation of troponin secondary to hypoxemia no clinical evidence of acute microinfarction -Mediastinal adenopathy probably reactive secondary to inflammation Atrial fibrillation with rapid ventricular rate unsure whether patient has chronic A. fib patient Didn't A pleasant is secondary to hypoxemia patient metoprolol dose will be increased and the cardiology will be consulted patient is not on any long-term anticoagulation. -COPD advanced significant emphysema -Hyperlipidemia -Hypertension DVT prophylaxis: Lovenox GI prophylaxis Pepcid Past Medical History Past Medical History: Asthma, COPD, Eye Disorder, Hearing Disorder / Deafness, Hyperlipidemia, Hypertension, Liver Disease, Osteoarthritis (OA) Additional Past Medical History / Comment(s): Hx stomach ulcer, cysts on liver >20 years, urinary leakage, small hiatal hernia, diverticulosis, tinnitus bilateral ears, left cataract, Pneumonia 2018. Uses Oxygen PRN. Last Myocardial Infarction Date:: 40 years ago History of Any Multi-Drug Resistant Organisms: None Reported Past Surgical History: Cholecystectomy, Hysterectomy, Orthopedic Surgery Additional Past Surgical History / Comment(s): KNEE arthroscopy-UNSURE WHICH SIDE, COLONOSCOPY-LARGE POLYP REMOVED, EGD, right cataract removed. Past Anesthesia/Blood Transfusion Reactions: No Reported Reaction Additional Past Anesthesia/Blood Transfusion Reaction / Comment(s): No hx blood transfusion. Past Psychological History: No Psychological Hx Reported Smoking Status: Former smoker Past Alcohol Use History: Occasional Past Drug Use History: None Reported - Past Family History Sister(s) Family Medical History: Cancer Additional Family Medical History / Comment(s): #1 sister colon cancer, # 2 sister lung cancer. Father Family Medical History: Cancer Additional Family Medical History / Comment(s): Prostate cancer. Mother Family Medical History: Asthma Additional Family Medical History / Comment(s): Heart problems. Medications and Allergies Home Medications Medication Instructions Recorded Confirmed Type Losartan Potassium 100 mg PO DAILY 10/30/14 12/04/20 History amLODIPine BESYLATE [Norvasc] 10 mg PO DAILY 02/02/18 12/04/20 History Albuterol Nebulized [Ventolin 2.5 mg INHALATION RT-QID PRN 04/28/19 12/04/20 History Nebulized] Aspirin EC [Ecotrin Low Dose] 81 mg PO DAILY 12/04/20 12/04/20 History Albuterol Inhaler [Ventolin Hfa 2 puff INHALATION RT-Q4H PRN 03/17/21 03/17/21 History Inhaler] Fluticasone/Umeclidin/Vilanter 1 puff INHALATION RT-DAILY 03/17/21 03/17/21 History [Trelegy Ellipta 100-62.5-25] Furosemide [Lasix] 40 mg PO DAILY 03/17/21 03/17/21 History Metoprolol Tartrate [Lopressor] 50 mg PO BID 03/17/21 03/17/21 History Pantoprazole [Protonix] 40 mg PO DAILY 03/17/21 03/17/21 History guaiFENesin [Mucinex] 600 mg PO BID PRN 03/17/21 03/17/21 History predniSONE 10 mg PO DAILY 03/17/21 03/17/21 History Allergies Allergy/AdvReac Type Severity Reaction Status Date / Time hydrocodone bitartrate AdvReac states Verified 03/17/21 09:33 [From Vicodin] "doesn't make me feel good" prednisone AdvReac Hallucinati Verified 03/17/21 09:33 ons Physical Exam Vitals: Vital Signs Temp Pulse Resp BP Pulse Ox 03/17/21 08:40 98 F 118 H 24 129/65 97 03/17/21 08:15 115 H 03/17/21 08:04 114 H 94 L 03/17/21 08:00 98 03/17/21 07:28 142/72 03/17/21 07:16 100 F H 114 H 26 H 98 03/17/21 06:46 114 H 30 H 95 03/17/21 05:14 98.5 F 101 H 20 114/75 97 03/17/21 02:21 118 H 03/17/21 02:10 112 H 03/17/21 01:52 99.1 F 117 H 22 148/20 95 03/17/21 01:38 24 03/17/21 00:32 120 H 30 H 96 03/17/21 00:00 113 H 20 145/86 100 03/16/21 23:00 116 H 20 138/86 03/16/21 22:30 124 H 20 134/77 99 03/16/21 22:18 102.9 F H 135 H 40 H 100 03/16/21 22:15 98.8 F 146 H 50 H 167/91 75 L Intake and Output 03/16/21 03/17/21 03/17/21 22:59 06:59 14:59 Other: Weight 77.111 kg Results CBC & Chem 7: 03/17/21 00:00 03/17/21 00:00 Labs: Abnormal Lab Results - Last 24 Hours (Table) 03/17/21 03/17/21 03/17/21 Range/Units 00:00 00:00 00:00 Hct 46.7 H (34.0-46.0) % D-Dimer 0.69 H (<0.60) mg/L FEU Glucose 119 H (74-99) mg/dL AST 38 H (14-36) U/L Troponin I (0.000-0.034) ng/mL Urine Protein (Negative) Urine Ketones (Negative) Urine Blood (Negative) Urine Mucus (None) /hpf 03/17/21 03/17/21 03/17/21 Range/Units 00:00 00:38 06:53 Hct (34.0-46.0) % D-Dimer (<0.60) mg/L FEU Glucose (74-99) mg/dL AST (14-36) U/L Troponin I 0.040 H* 0.061 H* (0.000-0.034) ng/mL Urine Protein 1+ H (Negative) Urine Ketones 2+ H (Negative) Urine Blood Trace H (Negative) Urine Mucus Occasional H (None) /hpf
[2021-03-17] MEDS: METOPROLOL TARTRATE 25 MG TAB PO ONE ×2 (10:48→10:49)
--- NOTE | 2021-03-17 14:55 | P.CNPUL ---
History of Present Illness Consult date: 03/17/21 Requesting physician: Judy Robin Reason for consult: dyspnea, cough Chief complaint: Dyspnea, cough, chills History of present illness: This is a 85-year-old -[place] female patient who follows with Dr. Gilbert in the pulmonary clinic for her history of COPD, chronic bronchial asthma, unspecified, her FEV1 value 74% of predicted. Diffusing capacity is 47% of predicted, patient is on home oxygen on an as-needed basis. Previous CT scans of the chest showed emphysema with upper lobe predominance. Patient had previous pseudomonal pulmonary infection. She is a former smoker, her other medical history includes hypertension, dyslipidemia, history of gastric ulcers, and diverticulosis. Patient presented to the emergency department on 03/16/2021 for evaluation of coughing, wheezing, chills, some phlegm production. She states she recently was on the eighth day bus trip to [place], she had returned, and started experiencing worsening coughing and wheezing. Her chest x-ray in the emergency department shows a minimal subsegmental atelectasis at the left lung base which is new compared to the old exam. She is currently on 4 L of oxygen pulse ox of 97%, she did have a fever in the emergency department with a temp of 102.9F. She was tested for COVID-19, and was negative, she states she has completed her COVID-19 vaccinations, she was also tested for influenza and she was negative, she has not received her influenza vaccination this season yet. Denies any chest pain, her lab work has been reviewed showing white blood cell, of 8.8, hemoglobin of 15.3, d-dimer was 0.69, electrolytes and renal profile were unremarkable, plasma lactic acid was 1.1, she did have some troponin elevation of 0.040, 0.061, and 0.052. Urinalysis shows 2+ ketones, trace blood, but no definite sign of infection. 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 There was an infiltrate and atelectasis at the lung bases. Patient was started on antib iotics for possibility of underlying pneumonia in the form of azithromycin and Rocephin, she was started on bronchodilators, and this consult was placed for evaluation of shortness of breath. Review of Systems All systems: negative Constitutional: Denies chills, Denies fever Eyes: denies blurred vision, denies pain Ears, nose, mouth and throat: Denies headache, Denies sore throat Cardiovascular: Denies chest pain, Denies shortness of breath Respiratory: Reports congestion, Reports cough, Reports dyspnea, Reports home oxygen, Reports respiratory infections, Reports wheezing Gastrointestinal: Denies abdominal pain, Denies diarrhea, Denies nausea, Denies vomiting Genitourinary: Denies dysuria, Denies hematuria Musculoskeletal: Denies myalgias Integumentary: Denies pruritus, Denies rash Neurological: Denies numbness, Denies weakness Psychiatric: Denies anxiety, Denies depression Endocrine: Denies fatigue, Denies weight change Past Medical History Past Medical History: Asthma, COPD, Eye Disorder, Hearing Disorder / Deafness, Hyperlipidemia, Hypertension, Liver Disease, Osteoarthritis (OA) Additional Past Medical History / Comment(s): Hx stomach ulcer, cysts on liver >20 years, urinary leakage, small hiatal hernia, diverticulosis, tinnitus bilateral ears, left cataract, Pneumonia 2018. Uses Oxygen PRN. Last Myocardial Infarction Date:: 40 years ago History of Any Multi-Drug Resistant Organisms: None Reported Past Surgical History: Cholecystectomy, Hysterectomy, Orthopedic Surgery Additional Past Surgical History / Comment(s): KNEE arthroscopy-UNSURE WHICH SIDE, COLONOSCOPY-LARGE POLYP REMOVED, EGD, right cataract removed. Past Anesthesia/Blood Transfusion Reactions: No Reported Reaction Additional Past Anesthesia/Blood Transfusion Reaction / Comment(s): No hx blood transfusion. Past Psychological History: No Psychological Hx Reported Smoking Status: Former smoker Past Alcohol Use History: Occasional Past Drug Use History: None Reported - Past Family History Sister(s) Family Medical History: Cancer Additional Family Medical History / Comment(s): #1 sister colon cancer, # 2 sister lung cancer. Father Family Medical History: Cancer Additional Family Medical History / Comment(s): Prostate cancer. Mother Family Medical History: Asthma Additional Family Medical History / Comment(s): Heart problems. Medications and Allergies Home Medications Medication Instructions Recorded Confirmed Type Losartan Potassium 100 mg PO HS 10/30/14 03/17/21 History amLODIPine BESYLATE [Norvasc] 10 mg PO DAILY 02/02/18 03/17/21 History Albuterol Nebulized [Ventolin 2.5 mg INHALATION RT-QID PRN 04/28/19 03/17/21 History Nebulized] Aspirin EC [Ecotrin Low Dose] 81 mg PO DAILY 12/04/20 03/17/21 History Albuterol Inhaler [Ventolin Hfa 2 puff INHALATION RT-Q4H PRN 03/17/21 03/17/21 History Inhaler] Fluticasone/Umeclidin/Vilanter 1 puff INHALATION RT-DAILY 03/17/21 03/17/21 History [Trelegy Ellipta 100-62.5-25] Furosemide [Lasix] 40 mg PO DAILY 03/17/21 03/17/21 History Metoprolol Tartrate [Lopressor] 50 mg PO BID 03/17/21 03/17/21 History Pantoprazole [Protonix] 40 mg PO DAILY 03/17/21 03/17/21 History guaiFENesin [Mucinex] 600 mg PO BID PRN 03/17/21 03/17/21 History predniSONE 10 mg PO DAILY 03/17/21 03/17/21 History Allergies Allergy/AdvReac Type Severity Reaction Status Date / Time hydrocodone bitartrate AdvReac states Verified 03/17/21 09:33 [From Vicodin] "doesn't make me feel good" prednisone AdvReac Hallucinati Verified 03/17/21 09:33 ons Physical Exam Vitals: Vital Signs Temp Pulse Resp BP Pulse Ox 03/17/21 11:26 92 03/17/21 11:17 92 03/17/21 10:50 96 18 118/63 95 03/17/21 08:40 98 F 118 H 24 129/65 97 03/17/21 08:15 115 H 03/17/21 08:04 114 H 94 L 03/17/21 08:00 98 03/17/21 07:28 142/72 03/17/21 07:16 100 F H 114 H 26 H 98 03/17/21 06:46 114 H 30 H 95 03/17/21 05:14 98.5 F 101 H 20 114/75 97 03/17/21 02:21 118 H 03/17/21 02:10 112 H 03/17/21 01:52 99.1 F 117 H 22 148/20 95 03/17/21 01:38 24 03/17/21 00:32 120 H 30 H 96 03/17/21 00:00 113 H 20 145/86 100 03/16/21 23:00 116 H 20 138/86 03/16/21 22:30 124 H 20 134/77 99 03/16/21 22:18 102.9 F H 135 H 40 H 100 03/16/21 22:15 98.8 F 146 H 50 H 167/91 75 L Intake and Output 03/16/21 03/17/21 03/17/21 22:59 06:59 14:59 Other: Weight 77.111 kg GENERAL EXAM: Alert, very pleasant, 85-year-old female, on not 4 L of oxygen a pulse ox of 97% resting on the gurney in the emergency department comfortable in no apparent distress. HEAD: Normocephalic/atraumatic. EYES: Normal reaction of pupils, equal size. Conjunctiva pink, sclera white. NOSE: Clear with pink turbinates. THROAT: No erythema or exudates. NECK: No masses, no JVD, no thyroid enlargement, no adenopathy. CHEST: No chest wall deformity. Symmetrical expansion. LUNGS: Equal air entry with crackles at bilateral bases, and congested cough CVS: Regular rate and rhythm, normal S1 and S2, no gallops, no murmurs, no rubs ABDOMEN: Soft, nontender. No hepatosplenomegaly, normal bowel sounds, no guarding or rigidity. EXTREMITIES: No clubbing, no edema, no cyanosis, 2+ pulses and upper and lower extremities. MUSCULOSKELETAL: Muscle strength and tone normal. SPINE: No scoliosis or deformity SKIN: No rashes CENTRAL NERVOUS SYSTEM: Alert and oriented -3. No focal deficits, tone is normal in all 4 extremities. PSYCHIATRIC: Alert and oriented -3. Appropriate affect. Intact judgment and insight. Results - Laboratory Findings CBC and BMP: 03/17/21 00:00 03/17/21 00:00 PT/INR, D-dimer PT 10.0 sec (9.0-12.0) 03/17/21 00:00 INR 0.9 (<1.2) 03/17/21 00:00 D-Dimer 0.69 mg/L FEU (<0.60) H 03/17/21 00:00 Abnormal lab findings: Abnormal Labs 03/17/21 03/17/21 03/17/21 00:00 00:00 00:00 Hct 46.7 H D-Dimer 0.69 H Glucose 119 H AST 38 H Troponin I Urine Protein Urine Ketones Urine Blood Urine Mucus 03/17/21 03/17/21 03/17/21 00:00 00:38 06:53 Hct D-Dimer Glucose AST Troponin I 0.040 H* 0.061 H* Urine Protein 1+ H Urine Ketones 2+ H Urine Blood Trace H Urine Mucus Occasional H 03/17/21 09:47 Hct D-Dimer Glucose AST Troponin I 0.052 H* Urine Protein Urine Ketones Urine Blood Urine Mucus - Diagnostic Findings Chest x-ray: report reviewed, image reviewed CT scan - chest: report reviewed, image reviewed Additional studies: EKG reviewed Assessment and Plan Plan: Assessment: #1. Fever, coughing, wheezing, chills, no clear evidence of pneumonia on the chest x-ray or CTA chest. Patient remains on a combination of azithromycin and Rocephin. Pro-calcitonin level is pending. COVID-19 PCR was negative, influenza screen was negative #2. Acute exacerbation of COPD #3. Advanced COPD on home oxygen on as-needed basis, with baseline FEV1 of 74% of predicted #4. Hypertension #5. Hyperlipidemia #6. Osteoarthritis #7. Former smoker #8. Previous history of gastric ulcer #9. Hiatal hernia #10. Previous history of myocardial infarction #11. Patient has completed COVID-19 vaccination Plan: Chest x-ray and CT chest reviewed Continue azithromycin and Rocephin Send a pro-calcitonin level COVID-19 and influenza has been ruled out per PCR test Patient has been vaccinated for COVID-19 but not for influenza this season We will add IV Solu-Medrol Continue bronchodilators We'll continue to follow I performed a history & physical examination of the patient and discussed their management with my nurse practitioner, Lori Walker. I reviewed the nurse practitioner's note and agree with the documented findings and plan of care. Lung sounds are positive for diffuse wheezes throughout the lung dutta. The findings and the impression was discussed with the patient. I attest to the documentation by the nurse practitioner. Time with Patient: Greater than 30
[2021-03-17] MEDS: methylPREDNISolone SOD SUCCI 40 MG/ML 1 ML VIAL IV SCH ×2 (18:41→21:58)
[2021-03-17 21:46] LABS: Glucose,Whole Blood 123 mg/dL (75-99)
[2021-03-17] MEDS: METOPROLOL TARTRATE 50 MG TAB PO SCH (21:58)
--- NOTE | 2021-03-17 22:55 | P.CONS ---
History of Present Illness - Reason for Consult Consult date: 03/17/21 FUO Requesting physician: Judy Robin - Chief Complaint shortnrss of breathaand cough x few days - History of Present Illness History of present illness : Patient is 85-year-old -[place] female presenting to the hospital last night for evaluation of increasing shortness of breath and cough in this patient symptom has been getting worse for the last 3 days apparently the patient did went on an 8-day burst 12th rib through [facility] and the patient started feeling somewhat short of breath beginning on Wednesday evening and that is 2 days before presentation to the hospital patient also have a cough which is moderate intensity with occasional yellowish to the sputum no hemoptysis denies any chest pain some nausea no vomiting no abdominal pain no diarrhea no burning or frequency of urine on presentation to the hospital. Have a fever of 102.9 degree form height she was hypoxic on presentation to the ER with O2 sats of 75% currently 97% on 4 L nasal cannula patient did have a normal white count with no lymphopenia or left shift D-dimer was 0.69 kidney function was normal AST was mildly elevated troponins were elevated urine is negative argueta PCR has been negative and the patient has received vaccination for the COVID-19 patient on presentation to the hospital did have a chest x-ray with minimal subsegmental atelectasis at the left lung b ase this is new compared to the old exam patient did have a CT angiogram of the chest no evidence of PE did have bullous emphysema infiltrative changes in the lung bases and some lymphadenopathy patient has been started on Rocephin and Zithromax infectious disease was consulted with concern for fever of unclear etiology Review of system: CONSTITUTIONAL: Positive for weakness along with the fever. EYES: No complaint. ENT: No complaint. RESPIRATORY as per history of present illness. CARDIOVASCULAR: No complaint. GENITOURINARY: No complaint. GASTROINTESTINAL: No complaint. MUSCULOSKELETAL: No complaint. INTEGUMENTARY: No complaint. PSYCHOLOGIC: No complaint. ENDOCRINE: No complaint. NEUROLOGIC: No complaint. Past medical history : Reviewed, documented below Past surgical history : Reviewed, documented below Social history: Reviewed, documented below Medications: Reviewed, as documented below EXAMINATION: Vital sigans= Reviewed and documented below GENERAL DESCRIPTION: Elderly female lying in bed, no distress. No tachypnea or accessory muscle of respiration use. HEENT: Shows Pallor , no scleral icterus. Oral mucous membrane is dry. NECK: Trachea central, no thyromegaly. LUNGS: Unlabored breathing. Decreased breath sound at the base. No wheeze or crackle. HEART: S1, S2, regular rate and rhythm. ABDOMEN: Soft, no tenderness , guarding or rigidity EXTREMITIES: No edema of feet. SKIN: No rash, no masses palpable. NEUROLOGICAL: The patient is awake, alert, oriented x3, mood and affect normal. LABS AND RADIOLOGY: Reviewed results see below Assessment : Patient presented to hospital with increasing shortness of breath and this patient also have a cough with yellowish to green sputum production patient did have a chest x-ray with left lower lobe infiltrate CT angiogram of the chest was negative for PE however did shows bilateral basilar infiltrate and some inflammatory lymphadenopathy high clinic suspicious for pneumonia to the likely source of her fever as currently do not have any other obvious focus of infection urine is negative abdominal soft of the examination no evidence of any cellulitis Plan: 1-we will obtain a sputum for Gram stain and culture check a procalcitonin level and urine for Legionella antigen 2-Rocephin and Zithromax will provide adequate antibiotic coverage 3-gentle IV fluid We will follow on clinical condition and cultures to further adjust medication if needed Thank you for this consultation we will follow the patient along with you Past Medical History Past Medical History: Asthma, COPD, Eye Disorder, Hearing Disorder / Deafness, Hyperlipidemia, Hypertension, Liver Disease, Osteoarthritis (OA) Additional Past Medical History / Comment(s): Hx stomach ulcer, cysts on liver >20 years, urinary leakage, small hiatal hernia, diverticulosis, tinnitus bila teral ears, left cataract, Pneumonia 2018. Uses Oxygen PRN. Last Myocardial Infarction Date:: 40 years ago History of Any Multi-Drug Resistant Organisms: None Reported Past Surgical History: Cholecystectomy, Hysterectomy, Orthopedic Surgery Additional Past Surgical History / Comment(s): KNEE arthroscopy-UNSURE WHICH SIDE, COLONOSCOPY-LARGE POLYP REMOVED, EGD, right cataract removed. Past Anesthesia/Blood Transfusion Reactions: No Reported Reaction Additional Past Anesthesia/Blood Transfusion Reaction / Comm: No hx blood transfusion. Past Psychological History: No Psychological Hx Reported Smoking Status: Former smoker Past Alcohol Use History: Occasional Past Drug Use History: None Reported - Past Family History Sister(s) Family Medical History: Cancer Additional Family Medical History / Comment(s): #1 sister colon cancer, # 2 sister lung cancer. Father Family Medical History: Cancer Additional Family Medical History / Comment(s): Prostate cancer. Mother Family Medical History: Asthma Additional Family Medical History / Comment(s): Heart problems. Medications and Allergies Home Medications Medication Instructions Recorded Confirmed Type Losartan Potassium 100 mg PO HS 10/30/14 03/17/21 History amLODIPine BESYLATE [Norvasc] 10 mg PO DAILY 02/02/18 03/17/21 History Albuterol Nebulized [Ventolin 2.5 mg INHALATION RT-QID PRN 04/28/19 03/17/21 History Nebulized] Aspirin EC [Ecotrin Low Dose] 81 mg PO DAILY 12/04/20 03/17/21 History Albuterol Inhaler [Ventolin Hfa 2 puff INHALATION RT-Q4H PRN 03/17/21 03/17/21 History Inhaler] Fluticasone/Umeclidin/Vilanter 1 puff INHALATION RT-DAILY 03/17/21 03/17/21 History [Trelegy Ellipta 100-62.5-25] Furosemide [Lasix] 40 mg PO DAILY 03/17/21 03/17/21 History Metoprolol Tartrate [Lopressor] 50 mg PO BID 03/17/21 03/17/21 History Pantoprazole [Protonix] 40 mg PO DAILY 03/17/21 03/17/21 History guaiFENesin [Mucinex] 600 mg PO BID PRN 03/17/21 03/17/21 History predniSONE 10 mg PO DAILY 03/17/21 03/17/21 History Allergies Allergy/AdvReac Type Severity Reaction Status Date / Time hydrocodone bitartrate AdvReac states Verified 03/17/21 09:33 [From Vicodin] "doesn't make me feel good" prednisone AdvReac Hallucinati Verified 03/17/21 09:33 ons Physical Exam Vitals: Vital Signs Temp Pulse Resp BP Pulse Ox 03/17/21 08:40 98 F 118 H 24 129/65 97 03/17/21 08:15 115 H 03/17/21 08:04 114 H 94 L 03/17/21 08:00 98 03/17/21 07:28 142/72 03/17/21 07:16 100 F H 114 H 26 H 98 03/17/21 06:46 114 H 30 H 95 03/17/21 05:14 98.5 F 101 H 20 114/75 97 03/17/21 02:21 118 H 03/17/21 02:10 112 H 03/17/21 01:52 99.1 F 117 H 22 148/20 95 03/17/21 01:38 24 03/17/21 00:32 120 H 30 H 96 03/17/21 00:00 113 H 20 145/86 100 03/16/21 23:00 116 H 20 138/86 03/16/21 22:30 124 H 20 134/77 99 03/16/21 22:18 102.9 F H 135 H 40 H 100 03/16/21 22:15 98.8 F 146 H 50 H 167/91 75 L Intake and Output 03/16/21 03/17/21 03/17/21 22:59 06:59 14:59 Other: Weight 77.111 kg Results CBC & Chem 7: 03/17/21 00:00 03/17/21 00:00 Labs: Abnormal Lab Results - Last 24 Hours (Table) 03/17/21 03/17/21 03/17/21 Range/Units 00:00 00:00 00:00 Hct 46.7 H (34.0-46.0) % D-Dimer 0.69 H (<0.60) mg/L FEU Glucose 119 H (74-99) mg/dL AST 38 H (14-36) U/L Troponin I (0.000-0.034) ng/mL Urine Protein (Negative) Urine Ketones (Negative) Urine Blood (Negative) Urine Mucus (None) /hpf 03/17/21 03/17/21 03/17/21 Range/Units 00:00 00:38 06:53 Hct (34.0-46.0) % D-Dimer (<0.60) mg/L FEU Glucose (74-99) mg/dL AST (14-36) U/L Troponin I 0.040 H* 0.061 H* (0.000-0.034) ng/mL Urine Protein 1+ H (Negative) Urine Ketones 2+ H (Negative) Urine Blood Trace H (Negative) Urine Mucus Occasional H (None) /hpf
[2021-03-18] MEDS: SODIUM CHLORIDE 0.9% 1,000 ML IV SCH (00:51)
[2021-03-18 06:00] LABS: Glucose,Whole Blood 141 mg/dL (75-99)
[2021-03-18] MEDS: INSULIN ASPART (NovoLOG) 100 UNIT/ML VIAL SQ SCH ×4 (06:37→19:57)
[2021-03-18] MEDS: IPRATROPIUM-ALBUTEROL 3 ML NEB INHALATION SCH ×4 (08:10→21:44)
[2021-03-18] MEDS: SYMBICORT 160-4.5 MCG INHALER INHALATION PRN (08:10)
[2021-03-18 09:07] LABS: HCT 40.1 % (34.0-46.0); HGB 13.2 gm/dL (11.4-16.0); MCH 31.6 pg (25.0-35.0); MCV 95.8 fL (80.0-100.0); Mean Platelet Volume 7.9; Platelet Count 335 k/uL (150-450); RBC 4.19 m/uL (3.80-5.40); RDW 12.3 % (11.5-15.5); WBC 8.4 k/uL (3.8-10.6)
[2021-03-18 09:18] LABS: African American GFR (CKD) >90 (>60 ml/min/1.73 sqM); Anion Gap 6 mmol/L; Blood Urea Nitrogen 10 mg/dL (7-17); Calcium 9.2 mg/dL (8.4-10.2); Carbon Dioxide 30 mmol/L (22-30); Chloride 103 mmol/L (98-107); Glucose 165 mg/dL (74-99); Non-African American GFR(CKD) 84 (>60 ml/min/1.73 sqM); Potassium 3.8 mmol/L (3.5-5.1); Sodium 139 mmol/L (137-145)
[2021-03-18] MEDS: AZITHROMYCIN 500 MG TAB PO SCH (09:34)
[2021-03-18] MEDS: ASPIRIN 81 MG PO SCH (09:34)
[2021-03-18] MEDS: ENOXAPARIN 40 MG/0.4 ML SYRINGE SQ SCH (09:34)
[2021-03-18] MEDS: methylPREDNISolone SOD SUCCI 40 MG/ML 1 ML VIAL IV SCH ×2 (09:35→15:56)
[2021-03-18] MEDS: METOPROLOL TARTRATE 50 MG TAB PO SCH ×2 (09:35→19:57)
[2021-03-18] MEDS: FAMOTIDINE 20 MG TAB PO SCH ×2 (09:35→19:57)
[2021-03-18] MEDS: LOSARTAN 50 MG TAB PO SCH (09:35)
--- NOTE | 2021-03-18 11:13 | P.PN ---
Subjective Patient was an 85-year-old female with advanced COPD and emphysema doesn't use any oxygen but uses Floxin on as-needed basis came up a day trip from [facility] with complaints of fever which started about 3 days ago and severe shortness of breath is started about 4 days ago. Patient was in words denied any tick bite. Patient is coughing a phlegm patient denied any dysuria denied any abdominal pain nausea vomiting diarrhea. Patient was having mild headache without any photophobia or neck rigidity. Patient had mildly elevated d-dimer because of which patient had a CT angios the chest which did not show any infiltrate consistent with pneumonia although there is some mild nonspecific infiltrate in the left lower lung dutta because of which patient was started on antibiotics for a pneumonia. Patient has mildly elevated troponins of 0.04 and 0.06, EKG did not show any acute ST-T wave changes. Patient was tested for Covid 19 PCR of which is negative ordering influenza as well. Patient is bit tachycardic does have history of atrial fibrillation, not on any anticoagulation at this time. 03/18/2021 Patient looks a bit better today still having significant wheezing on exam can you with systemic steroids inhalational treatments. Patient's fevers resolved at this time can you with the same antibiotics although there is no clinical evidence of pneumonia at this time. Blood cultures are pending sputum cultures are pending. Constitutional: Denied any fatigue denied any fever. Cardio vascular: denied any chest pain, palpitations Gastrointestinal denied any nausea vomiting Pulmonary: Denied any shortness of breath cough Neurologic denied any new focal deficits All inpatient medications were reviewed and appropriate changes in these medications as dictated in the interval history and assessment and plan. PHYSICAL EXAMINATION: GENERAL: The patient is alert and oriented x3, and is in respiratory distress well developed, well nourished. HEENT: Pupils are round and equally reacting to light. EOMI. No scleral icterus. No conjunctival pallor. Normocephalic, atraumatic. No pharyngeal erythema. No thyromegaly. CARDIOVASCULAR: S1 and S2 present. No murmurs, rubs, or gallops. Tachycardic irregularly irregular rhythm PULMONARY significant expiratory wheezing on exam ABDOMEN: Soft, nontender, nondistended, normoactive bowel sounds. No palpable organomegaly. MUSCULOSKELETAL: No joint swelling or deformity. EXTREMITIES: No cyanosis, clubbing, or pedal edema. NEUROLOGICAL: Gross neurological examination did not reveal any focal deficits. SKIN: No rashes. Assessment and plan -Fever without any leukocytosis etiology of fever is not clear, we'll order urinary Legionella antigen and mycoplasma antibody are pending so far cultures are negative influenza is negative Covid 19 is negative. Continue with present antibiotics as patient has symptomatic improvement . -Acute hypoxic and hypercapnic respiratory failure secondary to COPD exacerbation patient will be continued on steroids patient is on Decadron patient states she has significant side effects from Solu-Medrol and prednisone in the past. Patient will be continued on DuoNeb nebulizations -Mild elevation of troponin secondary to hypoxemia no clinical evidence of acute I cardial infarction -Mediastinal adenopathy probably reactive secondary to inflammation Atrial fibrillation chronic present is sinus rhythm with. PACs heart rate is bit better today compared to yesterday for patient is not on any anticoagulation -COPD advanced significant emphysema -Hyperlipidemia -Hypertension DVT prophylaxis: Lovenox GI prophylaxis Pepcid Objective - Vital Signs Vital signs: Vital Signs Temp 98.7 F 03/18/21 08:00 Pulse 96 03/18/21 08:26 Resp 19 03/18/21 08:00 BP 124/69 03/18/21 08:00 Pulse Ox 95 03/18/21 08:00 Intake & Output 03/17/21 03/18/21 03/18/21 18:59 06:59 18:59 Intake Total 120 Output Total 100 Balance -100 120 Weight 78.1 kg Intake: Oral 120 Output: Urine 100 Other: Voiding Method Toilet # Voids 1 1 - Labs CBC & Chem 7: 03/18/21 08:10 03/18/21 08:10 Labs: Abnormal Lab Results - Last 24 Hours (Table) 03/17/21 03/17/21 03/18/21 Range/Units 09:47 21:43 05:32 Glucose (74-99) mg/dL POC Glucose (mg/dL) 123 H 141 H (75-99) mg/dL Troponin I 0.052 H* (0.000-0.034) ng/mL 03/18/21 Range/Units 08:10 Glucose 165 H (74-99) mg/dL POC Glucose (mg/dL) (75-99) mg/dL Troponin I (0.000-0.034) ng/mL Microbiology - Last 24 Hours (Table) 03/17/21 20:40 Gram Stain - Preliminary Sputum Sputum Culture - Preliminary 03/17/21 00:30 Blood Culture - Preliminary Blood No Growth after 24 hours 03/17/21 00:00 Blood Culture - Preliminary Blood No Growth after 24 hours
[2021-03-18 11:39] LABS: Glucose,Whole Blood 104 mg/dL (75-99)
--- NOTE | 2021-03-18 12:31 | P.PN ---
Subjective Progress Note Date: 03/18/21 This is a 85-year-old -Spanish female patient who follows with Dr. Gilbert in the pulmonary clinic for her history of COPD, chronic bronchial asthma, unspecified, her FEV1 value 74% of predicted. Diffusing capacity is 47% of predicted, patient is on home oxygen on an as-needed basis. Previous CT scans of the chest showed emphysema with upper lobe predominance. Patient had previous pseudomonal pulmonary infection. She is a former smoker, her other medical history includes hypertension, dyslipidemia, history of gastric ulcers, and diverticulosis. Patient presented to the emergency department on 03/16/2021 for evaluation of coughing, wheezing, chills, some phlegm production. She stat es she recently was on the eighth day bus trip to [place], she had returned, and started experiencing worsening coughing and wheezing. Her chest x-ray in the emergency department shows a minimal subsegmental atelectasis at the left lung base which is new compared to the old exam. She is currently on 4 L of oxygen pulse ox of 97%, she did have a fever in the emergency department with a temp of 102.9F. She was tested for COVID-19, and was negative, she states she has completed her COVID-19 vaccinations, she was also tested for influenza and she was negative, she has not received her influenza vaccination this season yet. Denies any chest pain, her lab work has been reviewed showing white blood cell, of 8.8, hemoglobin of 15.3, d-dimer was 0.69, electrolytes and renal profile were unremarkable, plasma lactic acid was 1.1, she did have some troponin elevation of 0.040, 0.061, and 0.052. Urinalysis shows 2+ ketones, trace blood, but no definite sign of infection. 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 There was an infiltrate and atelectasis at the lung bases. Patient was started on antibiotics for possibility of underlying pneumonia in the form of azithromycin and Rocephin, she was started on bronchodilators, and this consult was placed for evaluation of shortness of breath. The patient is seen today on 03/18/2021 in follow-up on the selective care unit. She is currently sitting up in a chair at the bedside. Awake and alert in no acute distress. Breathing a bit easier today compared to yesterday. Not quite back to her baseline. She is maintaining good O2 saturations in the 90s on 3 L/m per nasal cannula. His been afebrile. Hemodynamically stable. Blood cultures reveal no growth to date. Sputum culture pending. White count 8.4. Hemoglobin 13.2. Sodium 139. Potassium 3.8. Creatinine 0.6. She is continued on DuoNeb inhalations, Symbicort, IV Solu-Medrol. On empiric antibiotics in form of ceftriaxone and azithromycin. Lovenox for DVT prophylaxis. Objective - Vital Signs Vital signs: Vital Signs Temp 98.7 F 03/18/21 08:00 Pulse 108 H 03/18/21 11:25 Resp 19 03/18/21 08:00 BP 124/69 03/18/21 08:00 Pulse Ox 95 03/18/21 08:00 Intake & Output 03/17/21 03/18/21 03/18/21 18:59 06:59 18:59 Intake Total 120 Output Total 100 Balance -100 120 Weight 78.1 kg Intake: Oral 120 Output: Urine 100 Other: Voiding Method Toilet # Voids 1 1 - Exam GENERAL EXAM: Alert, very pleasant, 85-year-old female, up in a chair at the bedside, on 3 L of oxygen a pulse ox of 95% comfortable in no apparent distress. HEAD: Normocephalic/atraumatic. EYES: Normal reaction of pupils, equal size. Conjunctiva pink, sclera white. NOSE: Clear with pink turbinates. THROAT: No erythema or exudates. NECK: No masses, no JVD, no thyroid enlargement, no adenopathy. CHEST: No chest wall deformity. Symmetrical expansion. LUNGS: Equal air entry with crackles at bilateral bases, and congested cough CVS: Regular rate and rhythm, normal S1 and S2, no gallops, no murmurs, no rubs ABDOMEN: Soft, nontender. No hepatosplenomegaly, normal bowel sounds, no guarding or rigidity. EXTREMITIES: No clubbing, no edema, no cyanosis, 2+ pulses and upper and lower extremities. MUSCULOSKELETAL: Muscle strength and tone normal. SPINE: No scoliosis or deformity SKIN: No rashes CENTRAL NERVOUS SYSTEM: Alert and oriented -3. No focal deficits, tone is normal in all 4 extremities. PSYCHIATRIC: Appropriate affect. Intact judgment and insight. - Labs CBC & Chem 7: 03/18/21 08:10 03/18/21 08:10 Labs: Abnormal Lab Results - Last 24 Hours (Table) 03/17/21 03/18/21 03/18/21 Range/Units 21:43 05:32 08:10 Glucose 165 H (74-99) mg/dL POC Glucose (mg/dL) 123 H 141 H (75-99) mg/dL 03/18/21 Range/Units 11:38 Glucose (74-99) mg/dL POC Glucose (mg/dL) 104 H (75-99) mg/dL Microbiology - Last 24 Hours (Table) 03/17/21 20:40 Gram Stain - Preliminary Sputum Sputum Culture - Preliminary 03/17/21 00:30 Blood Culture - Preliminary Blood No Growth after 24 hours 03/17/21 00:00 Blood Culture - Preliminary Blood No Growth after 24 hours Assessment and Plan Assessment: 1 Fever, coughing, wheezing, chills, no clear evidence of pneumonia on the stefany st x-ray or CTA chest. Patient remains on a combination of azithromycin and Rocephin. Pro-calcitonin level is pending. COVID-19 PCR was negative, influenza screen was negative 2 Acute exacerbation of COPD 3 Advanced COPD on home oxygen on as-needed basis, with baseline FEV1 of 74% of predicted 4 Hypertension 5 Hyperlipidemia 6 Osteoarthritis 7 Former smoker 8 Previous history of gastric ulcer 9 Hiatal hernia 10 Previous history of myocardial infarction 11 Patient has completed COVID-19 vaccination Plan: The patient was seen and evaluated by Dr. Carney Medications and labs reviewed Increase IV Solu-Medrol to 40 mg every 8 hours Titrate the FiO2 as tolerated Increase her activity as tolerated We will continue to follow I, the cosigning physician, performed a history & physical examination of the patient. Lungs sounds with a bilateral crackles. Maintaining good O2 saturations in the 90s on 3L/min per nasal canula. I discussed the assessment and plan of care with my nurse practitioner, Teresa Alejandro. I attest to the above note as dictated by her.
--- NOTE | 2021-03-18 12:40 | CDI ---
Documentation Clarification Form Date: 03/18/2021 12:27:26 PM From: Rachele BeyMaddenZUHAIR, CCDS Admit Date: 03/17/2021 02:22:00 AM Patient Name: Kelley Mills Visit Number: [id number] Discharge Date: ATTENTION: The Clinical Documentation Specialists (CDI) and [facility] Coding Staff appreciate your assistance in clarifying documentation. Please respond to the clarification below the line at the bottom and electronically sign. The CDI & [facility] Coding staff will review the response and follow-up if needed. Please note: Queries are made part of the Legal Health Record. If you have any questions, please contact the author of this message via ITS. Dr. Emily Carney: Asthma is documented in the 03/17 ED Note in the patient's Medical History, also in the 03/17 H/P Medical History and in the 03/17 Pulmonary History as Chronic Bronchial Asthma. Additional clarification regarding the type of asthma is requested. History/risk factors per the 03/17 H/P: Asthma, Advanced COPD & Emphysema, [place], Hyperlipidemia, Hypertension, Osteoarthritis, [place], Pneumonia 02/2019, Home O2 prn, COVID vaccinated. Clinical Indicators: Presented to the ED on 104 with SOB, patient thought her asthma was flaring up. ED Clinical Impression: Pneumonia 03/17 Pulmonary consult: Fever, coughing, wheezing, chills, no clear evidence of pneumonia on CXR or CT Chest. COVID negative. Acute Exacerbation of COPD. 03/16 VS: T 98.8 - 102.9; P 146 - 124; R 50 - 20; BP 167/91, 134/77; PO 75 RA - 100 15L nrb, BMI: 27.0 03/17 LAB: D Dimer 0.69, glucose 119, AST 38, Troponin 0.040, 0.061, 0.051 03/17 COVID negative, Influenza Type A/B Negative. 03/16 CXR: Minimal subsegmental atelectasis at left lung base, new. 03/17 CT Chest: No evidence of pulmonary embolism. Bullous pulmonary emphysema. There are a few mediastinal and bronchial lymph nodes which are probably inflammatory. There is infiltrate and atelectasis at the lung bases. Chest appears not significantly different than old CT scan. Treatment: Blood & Sputum Cultures, Legionella Antigen, O2 2Lnc, IV Rcephin, INH Ventolin q4H prn, IV Azithromycin, IV Na Cl rate 30 q24hr, IV Na Cl 1000 mls/hr q3M, INH Duoneb QID, INH Symbicort BID prn, IV Solumedrol q12Hr Please clarify the type and severity of asthma, if known: [ ] Extrinsic asthma [ ] with exacerbation [ ] without exacerbation [ ] Intrinsic asthma [ ] with exacerbation [ ] without exacerbation [ ] Mild intermittent asthma [ ] with exacerbation [ ] without exacerbation [ ] Mild persistent asthma [ ] with exacerbation [ ] without exacerbation [ ] Moderate persistent asthma [ ] with exacerbation [ ] without exacerbation [ ] Severe persistent asthma [ ] with exacerbation [ ] without exacerbation [ ] Other, please specify: [ ] Unable to determine (Template Last Revised: August 2020) MTDD
[2021-03-18] MEDS: guaiFENesin-DM 600/30MG 1 EACH TAB.ER.12H PO PRN (12:41)
[2021-03-18 16:38] LABS: Glucose,Whole Blood 156 mg/dL (75-99)
[2021-03-18 20:29] LABS: Glucose,Whole Blood 182 mg/dL (75-99)
[2021-03-19] MEDS: guaiFENesin-DM 600/30MG 1 EACH TAB.ER.12H PO PRN ×2 (00:06→11:09)
[2021-03-19] MEDS: methylPREDNISolone SOD SUCCI 40 MG/ML 1 ML VIAL IV SCH ×3 (00:06→16:32)
[2021-03-19 05:19] LABS: Mycoplasma IgG Antibody (EIA) 2.44 INDEX (<=0.90); Mycoplasma IgM Antibody 0.13 INDEX (<=0.90)
--- NOTE | 2021-03-19 05:55 | PN ---
PROGRESS NOTE DATE OF SERVICE: 03/18/2021 REASON FOR FOLLOWUP: Fever, possible pneumonia. INTERVAL HISTORY: The patient is afebrile. The patient is breathing slightly comfortably. The patient continued to have a cough with occasional sputum. No nausea, no vomiting. No abdominal pain. No diarrhea. PHYSICAL EXAMINATION: Blood pressure 145/69, pulse of 99, temperature 98.3. She is 92% on 2 L nasal cannula. General description is an elderly female up in the bed in no distress. Respiratory system: Unlabored breathing. Coarse breath sounds bilaterally. No wheeze. Heart S1, S2. Regular rate and rhythm. Abdomen soft, no tenderness. LABS: Hemoglobin is 13.8, white count 8.4, creatinine 0.62. Sputum cultures currently pending. Blood cultures have been negative so far. DIAGNOSTIC IMPRESSION AND PLAN: Patient admitted to the hospital predominantly with respiratory symptoms. Did have a fever, concern for possible pneumonia. No other obvious focus of infection. Patient clinically responding to the Rocephin and Zithromax; to continue. Sputum culture will be followed and antibiotic adjusted if needed. Continue supportive care. MMODL / IJN: [id number] /
[2021-03-19 06:54] LABS: Glucose,Whole Blood 130 mg/dL (75-99)
[2021-03-19] MEDS: INSULIN ASPART (NovoLOG) 100 UNIT/ML VIAL SQ SCH ×4 (08:03→21:02)
[2021-03-19] MEDS: FAMOTIDINE 20 MG TAB PO SCH ×2 (08:07→21:02)
[2021-03-19] MEDS: METOPROLOL TARTRATE 50 MG TAB PO SCH ×2 (08:07→21:02)
[2021-03-19] MEDS: LOSARTAN 50 MG TAB PO SCH (08:07)
[2021-03-19] MEDS: ASPIRIN 81 MG PO SCH (08:07)
[2021-03-19] MEDS: SODIUM CHLORIDE 0.9% 1,000 ML IV SCH (08:08)
[2021-03-19] MEDS: ENOXAPARIN 40 MG/0.4 ML SYRINGE SQ SCH (08:08)
[2021-03-19] MEDS: IPRATROPIUM-ALBUTEROL 3 ML NEB INHALATION SCH ×4 (08:22→18:56)
[2021-03-19] MEDS: SYMBICORT 160-4.5 MCG INHALER INHALATION PRN (08:24)
--- NOTE | 2021-03-19 08:54 | CDI ---
Documentation Clarification Form Date: 03/18/2021 12:27:00 PM From: Rachele BeyMaddenZUHAIR, CCDS Admit Date: 03/17/2021 02:22:00 AM Patient Name: Kelley Mills Visit Number: [id number] Discharge Date: ATTENTION: The Clinical Documentation Specialists (CDI) and [facility] Coding Staff appreciate your assistance in clarifying documentation. Please respond to the clarification below the line at the bottom and electronically sign. The CDI & [facility] Coding staff will review the response and follow-up if needed. Please note: Queries are made part of the Legal Health Record. If you have any questions, please contact the author of this message via ITS. Dr. Emily Carney: Thank you for your response to this query, please further specify if the patients asthma is Mild or Moderate. Asthma is documented in the 03/17 ED Note in the patient's Medical History, also in the 03/17 H/P Medical History and in the 03/17 Pulmonary History as Chronic Bronchial Asthma. Additional clarification regarding the type of asthma is requested. History/risk factors per the 03/17 H/P: Asthma, Advanced COPD & Emphysema, [place], Hyperlipidemia, Hypertension, Osteoarthritis, [place], Pneumonia 02/2019, Home O2 prn, COVID vaccinated. Clinical Indicators: Presented to the ED on 104 with SOB, patient thought her asthma was flaring up. ED Clinical Impression: Pneumonia 03/17 Pulmonary consult: Fever, coughing, wheezing, chills, no clear evidence of pneumonia on CXR or CT Chest. COVID negative. Acute Exacerbation of COPD. 03/16 VS: T 98.8 - 102.9; P 146 - 124; R 50 - 20; BP 167/91, 134/77; PO 75 RA - 100 15L nrb, BMI: 27.0 03/17 LAB: D Dimer 0.69, glucose 119, AST 38, Troponin 0.040, 0.061, 0.051 03/17 COVID negative, Influenza Type A/B Negative. 03/16 CXR: Minimal subsegmental atelectasis at left lung base, new. 03/17 CT Chest: No evidence of pulmonary embolism. Bullous pulmonary emphysema. There are a few mediastinal and bronchial lymph nodes which are probably inflammatory. There is infiltrate and atelectasis at the lung bases. Chest appears not significantly different than old CT scan. Treatment: Blood & Sputum Cultures, Legionella Antigen, O2 2Lnc, IV Rcephin, INH Ventolin q4H prn, IV Azithromycin, IV Na Cl rate 30 q24hr, IV Na Cl 1000 mls/hr q3M, INH Duoneb QID, INH Symbicort BID prn, IV Solumedrol q12Hr Please further clarify the severity of the patients asthma: [ ] Extrinsic asthma [ ] with exacerbation [ ] Mild Extrinsic asthma with exacerbation [ ] Moderate Extrinsic asthma with exacerbation (Template Last Revised: August 2020) MTDD
[2021-03-19] MEDS: AZITHROMYCIN 500 MG TAB PO SCH (11:10)
[2021-03-19 11:45] LABS: Glucose,Whole Blood 156 mg/dL (75-99)
--- NOTE | 2021-03-19 14:03 | P.PN ---
Subjective Progress Note Date: 03/19/21 Principal diagnosis: Acute exacerbation of moderate persistent extrinsic asthma This is a 85-year-old -[place] female patient who follows with Dr. Gilbert in the pulmonary clinic for her history of COPD, chronic bronchial asthma, unspecified, her FEV1 value 74% of predicted. Diffusing capacity is 47% of predicted, patient is on home oxygen on an as-needed basis. Previous CT scans of the chest showed emphysema with upper lobe predominance. Patient had previous pseudomonal pulmonary infection. She is a former smoker, her other medical history includes hypertension, dyslipidemia, history of gastric ulcers, and diverticulosis. Patient presented to the emergency department on 03/16/2021 for evaluation of coughing, wheezing, chills, some phlegm production. She states she recently was on the eighth day bus trip to [place], she had returned, and started experiencing worsening coughing and wheezing. Her chest x-ray in the emergency department shows a minimal subsegmental atelectasis at the left lung base which is new compared to the old exam. She is currently on 4 L of oxygen pulse ox of 97%, she did have a fever in the emergency department with a temp of 102.9F. She was tested for COVID-19, and was negative, she states she has completed her COVID-19 vaccinations, she was also tested for influenza and she was negative, she has not received her influenza vaccination this season yet. Denies any chest pain, her lab work has been reviewed showing white blood cell, of 8.8, hemoglobin of 15.3, d-dimer was 0.69, electrolytes and renal profile were unremarkable, plasma lactic acid was 1.1, she did have some troponin elevation of 0.040, 0.061, and 0.052. Urinalysis shows 2+ ketones, trace blood, but no definite sign of infection. 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 There was an infiltrate and atelectasis at the lung bases. Patient was started on antibiotics for possibility of underlying pneumonia in the form of azithromycin and Rocephin, she was started on bronchodilators, and this consult was placed for evaluation of shortness of breath. The patient is seen today on 03/18/2021 in follow-up on the selective care unit. She is currently sitting up in a chair at the bedside. Awake and alert in no acute distress. Breathing a bit easier today compared to yesterday. Not quite back to her baseline. She is maintaining good O2 saturations in the 90s on 3 L/m per nasal cannula. His been afebrile. Hemodynamically stable. Blood cultures reveal no growth to date. Sputum culture pending. White count 8.4. Hemoglobin 13.2. Sodium 139. Potassium 3.8. Creatinine 0.6. She is continued on DuoNeb inhalations, Symbicort, IV Solu-Medrol. On empiric antibiotics in form of ceftriaxone and azithromycin. Lovenox for DVT prophylaxis. Reevaluated today on 03/19/2021, patient remains on the medical floor, remains on multiple bronchodilators, IV Solu-Medrol, Symbicort, DuoNeb, he is also on empiric antibiotics, continues to have intermittent cough and wheezing, slight improvement compared to her initial presentation. But she is not back to baseline. Objective - Vital Signs Vital signs: Vital Signs Temp 97.6 F 03/19/21 08:18 Pulse 104 H 03/19/21 12:05 Resp 16 03/19/21 08:18 BP 129/68 03/19/21 08:18 Pulse Ox 96 03/19/21 08:18 Intake & Output 03/18/21 03/19/21 03/19/21 18:59 06:59 18:59 Intake Total 720 Output Total 300 Balance 420 Weight 78.1 kg 78.9 kg Intake: Oral 720 Output: Urine 300 Other: Voiding Method Toilet # Voids 1 3 - Exam Physical Exam revealed 85-year-old female in no distress, on 3 L nasal cannula. Head: Atraumatic, normocephalic. HEENT:[ Aura, EOMI, nonicteric. Neck is supple.] [No neck masses.] [No thyromegaly.] [No JVD.] Chest: [Scattered rhonchi and wheezes noted bilaterally more so on forced expiratory maneuver] Cardiac Exam: [Normal S1 and S2, no S3 gallop, no murmur.] Abdomen: [Soft, nontender, no megaly, no rebound, no guarding, normal bowel sounds.] Extremities: [No clubbing, no edema, no cyanosis.] Neurological Exam: [No focal neurologic deficit.] Psychiatric: Normal mood affect and normal mental status examination. Skin: No rashes. - Labs CBC & Chem 7: 03/18/21 08:10 03/18/21 08:10 Labs: Abnormal Lab Results - Last 24 Hours (Table) 03/17/21 03/17/21 03/18/21 Range/Units 00:00 09:47 16:37 POC Glucose (mg/dL) 156 H (75-99) mg/dL Procalcitonin 0.33 H (0.02-0.09) ng/mL Mycoplasma pneumon IgG 2.44 H (<=0.90) INDEX 03/18/21 03/19/21 03/19/21 Range/Units 20:28 06:52 11:44 POC Glucose (mg/dL) 182 H 130 H 156 H (75-99) mg/dL Procalcitonin (0.02-0.09) ng/mL Mycoplasma pneumon IgG (<=0.90) INDEX Microbiology - Last 24 Hours (Table) 03/17/21 00:30 Blood Culture - Preliminary Blood No Growth after 48 hours 03/17/21 00:00 Blood Culture - Preliminary Blood No Growth after 48 hours Assessment and Plan Assessment: Impression: Acute exacerbation of moderate extrinsic bronchial asthma Acute tracheobronchitis, no evidence of pneumonia. Benign essential hypertension. Dyslipidemia. Former smoker, patient may have some component of COPD, but I believe she has more extrinsic asthma than COPD. History of hiatal hernia. History of gastric ulcer. History of coronary artery disease and previous [place]. Recommendation: Continue present meds Continue Solu-Medrol Continue bronchodilators Continue antibiotics Possible discharge planning in the next 24 hours. If discharged home, patient cannot tolerate high dose of prednisone, may have to use 5-10 mg of prednisone daily at the most. Otherwise patient develops mental status change related to prednisone. Time with Patient: Less than 30
--- NOTE | 2021-03-19 15:10 | PN ---
PROGRESS NOTE DATE OF SERVICE: 03/19/2021. REASON FOR FOLLOWUP: Fever, possible pneumonia. INTERVAL HISTORY: Patient is afebrile. The patient still complaining of cough but unable to cough up any sputum. Denies having any chest pain. No cough. No nausea, no vomiting. No abdominal pain, no diarrhea. PHYSICAL EXAMINATION: Blood pressure 110/76, pulse of 85, temperature 98.1, she is 96% on 2 L nasal cannula. General description is an elderly female up in the bed in no distress. Respiratory system unlabored breathing. Coarse breath sounds bilaterally. Occasional wheeze. Heart S1, S2. Regular rate and rhythm. LABS: No new labs been obtained today. Sputum cultures are pending. Blood culture negative so far. DIAGNOSTIC IMPRESSION AND PLAN: Patient admitted to the hospital with severe shortness of breath and cough, source likely asthma exacerbation with possible tracheobronchitis/pneumonia. Overall improvement on Rocephin. Antibiotic has been switched over to Ceftin to continue while waiting for the sputum culture to finalize. Monitor clinical course closely. MMODL / IJN: [id number] /
[2021-03-19] MEDS: BENZOCAINE/MENTHOL LOZENG 1 EACH LOZENGE MUCOUS MEM PRN (16:32)
[2021-03-19 17:03] LABS: Glucose,Whole Blood 175 mg/dL (75-99)
[2021-03-19 20:33] LABS: Glucose,Whole Blood 185 mg/dL (75-99)
--- NOTE | 2021-03-19 22:23 | P.PN ---
Subjective Progress Note Date: 03/19/21 Patient was an 85-year-old female with advanced COPD and emphysema doesn't use any oxygen but uses Floxin on as-needed basis came up a day trip from [facility] with complaints of fever which started about 3 days ago and severe shortness of breath is started about 4 days ago. Patient was in words denied any tick bite. Patient is coughing a phlegm patient denied any dysuria denied any abdominal pain nausea vomiting diarrhea. Patient was having mild headache without any photophobia or neck rigidity. Patient had mildly elevated d-dimer because of which patient had a CT angios the chest which did not show any infiltrate consistent with pneumonia although there is some mild nonspecific infiltrate in the left lower lung dutta because of which patient was started on antibiotics for a pneumonia. Patient has mildly elevated troponins of 0.04 and 0.06, EKG did not show any acute ST-T wave changes. Patient was tested for Covid 19 PCR of which is negative ordering influenza as well. Patient is bit tachycardic does have history of atrial fibrillation, not on any anticoagulation at this time. 03/18/2021 Patient looks a bit better today still having significant wheezing on exam can you with systemic steroids inhalational treatments. Patient's fevers resolved at this time can you with the same antibiotics although there is no clinical evidence of pneumonia at this time. Blood cultures are pending sputum cultures are pending. 03/19/2021 Patient is complaining of some nonproductive cough, she states that is dry and she feels a tickle in her throat. She is requesting something to help with this. As it is causing her some pleuritic chest pain when she coughs. She reports the nurse that she was having chest pain, however my evaluation pain was worse with inspiration and expiration as well as with cough. She denied any chest pressure or palpitations, dizziness or lightheadedness. Patient is alert and oriented 3, she does reside at [facility] assisted living facility. She recently lost her last year and states that due to the circumstances as well as being on prednisone outpatient she felt she was on her right mind when she decided to sell her house and feels that she is too independent for assisted living. On discharge she'll return there and work with her son to find alternate housing. She denies any nausea or vomiting although she does state that she is having some loose stools that began in the last 24 hours. We will check a C. diff. Patient is being followed by ID as well as pulmonary services. Sputum culture is pending, blood cultures are negative. Pro-calcitonin was 0.33, mycoplasma IgG 2.44. Flu is not detected. Patient's been afebrile the last 24 hours, heart rate is 104, blood pressure 129/68. Patient is on telemetry and is reviewed, she does appear to have some isolated elevated heart rate in the 130s, P wave is not visible, could be some PACs or bursts of A. fib. Reviewed her cardiology notes and there appears to be an EF of 55% with mild to moderate pulmonary hypertension in November 2019. ROS: Constitutional: Denied any fatigue denied any fever. Cardio vascular: denied any chest pain, palpitations Gastrointestinal denied any nausea vomiting, reports loose stools Pulmonary: Denied any shortness of breath, reports nonproductive dry persistent cough Neurologic denied any new focal deficits All inpatient medications were reviewed and appropriate changes in these medications as dictated in the interval history and assessment and plan. PHYSICAL EXAMINATION: GENERAL: The patient is alert and oriented x3, and is in respiratory distress well developed, well nourished. HEENT: Pupils are round and equally reacting to light. EOMI. No scleral icterus. No conjunctival pallor. Normocephalic, atraumatic. No pharyngeal erythema. No thyromegaly. CARDIOVASCULAR: S1 and S2 present. No murmurs, rubs, or gallops. She is in si nus rhythm S1-S2 auscultated regular rate and rhythm PULMONARY significant expiratory wheezing on exam, when she coughs there is harsh rhonchi congested sounding ABDOMEN: Soft, nontender, nondistended, hyperactive bowel sounds. No palpable organomegaly. MUSCULOSKELETAL: No joint swelling or deformity. EXTREMITIES: No cyanosis, clubbing, or pedal edema. NEUROLOGICAL: Gross neurological examination did not reveal any focal deficits. SKIN: No rashes. Assessment and plan -Fever without any leukocytosis etiology of fever is not clear, Legionella negative mycoplasma IgM is negative however IgG is positive for mycoplasma pneumonia. Covid and flu are negative. There is a elevated pro-calcitonin at 0.33. -Acute hypoxic and hypercapnic respiratory failure secondary to COPD exacerbation patient will be continued on solu-medrol. Pt states that she does get side effects from solumedrol and prednisone - monitor closely -Mild elevation of troponin secondary to hypoxemia no clinical evidence of acute myocardial infarction -Mediastinal adenopathy probably reactive secondary to inflammation -Elevated d-dimer most likely related to pneumonia, CTA negative for PE -Sinus tachycardia to sinus rhythm with PACs heart rate is bit better today compared to yesterday -COPD advanced significant emphysema -Hyperlipidemia -Hypertension -Hyperglycemia, history of diabetes, most likely related to daily systemic steroids -Mild to moderate pulmonary hypertension, history of, from cardiology reports from a Lexiscan stress in November 2019 DVT prophylaxis: Lovenox GI prophylaxis Pepcid Plan Pending finalized soon cultures, patient is on oral cefdinir and IV Solu-Medrol. Plan is for discharge tomorrow back to her assisted living facility once cultures finalized. We will consult PT and OT. Objective - Vital Signs Vital signs: Vital Signs Temp 97.6 F 03/19/21 08:18 Pulse 104 H 03/19/21 12:05 Resp 16 03/19/21 08:18 BP 129/68 03/19/21 08:18 Pulse Ox 96 03/19/21 08:18 Intake & Output 03/18/21 03/19/21 03/19/21 18:59 06:59 18:59 Intake Total 720 Output Total 300 Balance 420 Weight 78.1 kg 78.9 kg Intake: Oral 720 Output: Urine 300 Other: Voiding Method Toilet # Voids 1 3 - Labs CBC & Chem 7: 03/18/21 08:10 03/18/21 08:10 Labs: Abnormal Lab Results - Last 24 Hours (Table) 03/17/21 03/17/21 03/18/21 Range/Units 00:00 09:47 16:37 POC Glucose (mg/dL) 156 H (75-99) mg/dL Procalcitonin 0.33 H (0.02-0.09) ng/mL Mycoplasma pneumon IgG 2.44 H (<=0.90) INDEX 03/18/21 03/19/21 03/19/21 Range/Units 20:28 06:52 11:44 POC Glucose (mg/dL) 182 H 130 H 156 H (75-99) mg/dL Procalcitonin (0.02-0.09) ng/mL Mycoplasma pneumon IgG (<=0.90) INDEX Microbiology - Last 24 Hours (Table) 03/17/21 00:30 Blood Culture - Preliminary Blood No Growth after 48 hours 03/17/21 00:00 Blood Culture - Preliminary Blood No Growth after 48 hours 03/17/21 20:40 Gram Stain - Preliminary Sputum Sputum Culture - Preliminary Assessment and Plan Time with Patient: Greater than 30
[2021-03-20] MEDS: methylPREDNISolone SOD SUCCI 40 MG/ML 1 ML VIAL IV SCH ×3 (00:06→16:54)
[2021-03-20] MEDS: SODIUM CHLORIDE 0.9% 1,000 ML IV SCH (04:25)
[2021-03-20 07:05] LABS: Glucose,Whole Blood 138 mg/dL (75-99)
[2021-03-20 07:33] LABS: African American GFR (CKD) >90 (>60 ml/min/1.73 sqM); Anion Gap 5 mmol/L; Blood Urea Nitrogen 20 mg/dL (7-17); Calcium 9.3 mg/dL (8.4-10.2); Carbon Dioxide 31 mmol/L (22-30); Chloride 104 mmol/L (98-107); Glucose 139 mg/dL (74-99); Magnesium 2.4 mg/dL (1.6-2.3); Non-African American GFR(CKD) 83 (>60 ml/min/1.73 sqM); Potassium 3.8 mmol/L (3.5-5.1); Sodium 140 mmol/L (137-145)
[2021-03-20] MEDS: SYMBICORT 160-4.5 MCG INHALER INHALATION PRN ×2 (07:59→21:31)
[2021-03-20] MEDS: IPRATROPIUM-ALBUTEROL 3 ML NEB INHALATION SCH ×4 (07:59→21:30)
[2021-03-20 08:07] LABS: HCT 39.5 % (34.0-46.0); MCH 31.8 pg (25.0-35.0); MCHC 32.9 g/dL (31.0-37.0); MCV 96.4 fL (80.0-100.0); Platelet Count 415 k/uL (150-450); RDW 12.3 % (11.5-15.5); WBC 15.2 k/uL (3.8-10.6)
[2021-03-20] MEDS: LOSARTAN 50 MG TAB PO SCH (08:12)
[2021-03-20] MEDS: INSULIN ASPART (NovoLOG) 100 UNIT/ML VIAL SQ SCH ×4 (08:12→21:27)
[2021-03-20] MEDS: ENOXAPARIN 40 MG/0.4 ML SYRINGE SQ SCH (08:12)
[2021-03-20] MEDS: ASPIRIN 81 MG PO SCH (08:12)
[2021-03-20] MEDS: CEFDINIR 300 MG CAP PO SCH ×2 (08:13→21:26)
[2021-03-20] MEDS: FAMOTIDINE 20 MG TAB PO SCH ×2 (08:20→21:27)
[2021-03-20] MEDS: METOPROLOL TARTRATE 50 MG TAB PO SCH ×2 (08:20→21:27)
[2021-03-20] MEDS ORDERED: Potassium Replacement Protocol 1 EACH MISC MISCELLANE PRN (08:50)
[2021-03-20] MEDS ORDERED: POTASSIUM CHLORIDE ER 20 MEQ TAB.ER PO SCH (09:00)
[2021-03-20 11:25] LABS: Glucose,Whole Blood 142 mg/dL (75-99)
--- NOTE | 2021-03-20 13:20 | CDI ---
Documentation Clarification Form Date: 03/20/2021 01:01:52 PM From: Rachele BeyMaddenZUHAIR marroquin, CCDS Admit Date: 03/17/2021 02:22:00 AM Patient Name: Kelley Mills Visit Number: [id number] Discharge Date: ATTENTION: The Clinical Documentation Specialists (CDI) and [facility] Coding Staff appreciate your assistance in clarifying documentation. Please respond to the clarification below the line at the bottom and electronically sign. The CDI & [facility] Coding staff will review the response and follow-up if needed. Please note: Queries are made part of the Legal Health Record. If you have any questions, please contact the author of this message via ITS. Dr. Judy Robin or Dr. Antonio Jenkins: The patient presented with SOB, felt it was her asthma flaring up with a history of [employer] and previous Pneumonia in February 2019. Per the 03/17 History & Physical, the patient has advanced COPD and Emphysema with Home O2. The patient was coughing and had a mild Headache, mildly elevated D Dimer, CT Chest showed mild nonspecific infiltrate consistent with pneumonia, started on antibiotics for pneumonia. Per the 03/19 Attending Physician Progress Note: Fever without leukocytosis, etiology of fever not clear. Legionella negative, Mycoplasma negative but IgG is positive for Mycoplasma Pneumonia. Also Acute Hypoxic & Hypercapnic Respiratory Failure secondary to COPD Exacerbation, COPD is advanced with significant Emphysema. Patient was also tachycardic. Per the 03/19 Pulmonary Progress Note the patient has an Acute Exacerbation of Moderate Persistent Extrinsic Asthma. Additional clarification regarding the etiology/cause of the clinical indicators is requested. History/Risk Factors per the 03/17 H/P: Advanced COPD & Emphysema, Atrial Fibrillation, Hypertension, Hyperlipidemia, Diverticulosis, Pneumonia 03/02, [place]. Former smoker. Clinical Indicators: Presented to the ED on 03/17 with SOB. Recent travel on bus trip to [place], has history of asthma. Admit with Pneumonia. 03/16 VS: T 98.8 - 103.3; P 146 - 135 - 124; R 50 - 40 - 20; BP 167/91 - 134/77 - 138/86; PO 75 RA - 100 on 15L nrb, BMI: 28.7 03/16 LAB: WBC 8.8, D Dimer 0-.69, Troponin 0.040, 0.061, 0.052; Procalcitonin 0.33 03/16 Serology: COVID negative Influenza A/B: negative Urine Legionella: Negative Mycoplasma pneumon Ig.44 Mycoplasma pneumon IgM: 0.13 03/17 Blood cultures (Preliminary): negative x2 03/17 Sputum culture (Final): negative 03/16 CXR: Minimal subsegmental atelectasis left lung. 03/17 Ct Chest: No PE. Bullous pulmonary emphysema, a few mediastinal & bronchial lymph nodes probably inflammatory. There is infiltrate and atelectasis at the lung bases. Treatment 03/17: O2 2Lnc ordered, put on nrb, IV Rocephin x1, INH Ventolin x1, IV Azithromycin x1, IV Na Cl 500 mls @ 1000 mls/hr q30M, INH Duoneb, INH Symbicort, po Hexadrol, Lovenox sq, IV Solumedrol. Infectious Disease Consult: Increasing sob, cough with yellow - green sputum production, CXR: LLL infiltrate, CT Chest: bilateral basilar infiltrate suspicious for pneumonia, likely source of fever. In your professional opinion, please clarify if these findings signify one of the following conditions: [ ] Sepsis POA [ ] Sepsis, Not POA [ ] Severe Sepsis with organ failure [ ] Other, please specify [ ] Unable to determine (Template Last Reviewed: July 2020) no sepsis MTDD
--- NOTE | 2021-03-20 13:52 | P.PN ---
Subjective Progress Note Date: 03/20/21 This is a 85-year-old -[place] female patient who follows with Dr. Gilbert in the pulmonary clinic for her history of COPD, chronic bronchial asthma, unspecified, her FEV1 value 74% of predicted. Diffusing capacity is 47% of predicted, patient is on home oxygen on an as-needed basis. Previous CT scans of the chest showed emphysema with upper lobe predominance. Patient had previous pseudomonal pulmonary infection. She is a former smoker, her other medical history includes hypertension, dyslipidemia, history of gastric ulcers, and diverticulosis. Patient presented to the emergency department on 03/16/2021 for evaluation of coughing, wheezing, chills, some phlegm production. She stat es she recently was on the eighth day bus trip to [place], she had returned, and started experiencing worsening coughing and wheezing. Her chest x-ray in the emergency department shows a minimal subsegmental atelectasis at the left lung base which is new compared to the old exam. She is currently on 4 L of oxygen pulse ox of 97%, she did have a fever in the emergency department with a temp of 102.9F. She was tested for COVID-19, and was negative, she states she has completed her COVID-19 vaccinations, she was also tested for influenza and she was negative, she has not received her influenza vaccination this season yet. Denies any chest pain, her lab work has been reviewed showing white blood cell, of 8.8, hemoglobin of 15.3, d-dimer was 0.69, electrolytes and renal profile were unremarkable, plasma lactic acid was 1.1, she did have some troponin elevation of 0.040, 0.061, and 0.052. Urinalysis shows 2+ ketones, trace blood, but no definite sign of infection. 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 There was an infiltrate and atelectasis at the lung bases. Patient was started on antibiotics for possibility of underlying pneumonia in the form of azithromycin and Rocephin, she was started on bronchodilators, and this consult was placed for evaluation of shortness of breath. The patient is seen today on 03/18/2021 in follow-up on the selective care unit. She is currently sitting up in a chair at the bedside. Awake and alert in no acute distress. Breathing a bit easier today compared to yesterday. Not quite back to her baseline. She is maintaining good O2 saturations in the 90s on 3 L/m per nasal cannula. His been afebrile. Hemodynamically stable. Blood cultures reveal no growth to date. Sputum culture pending. White count 8.4. Hemoglobin 13.2. Sodium 139. Potassium 3.8. Creatinine 0.6. She is continued on DuoNeb inhalations, Symbicort, IV Solu-Medrol. On empiric antibiotics in form of ceftriaxone and azithromycin. Lovenox for DVT prophylaxis. Reevaluated today on 03/19/2021, patient remains on the medical floor, remains on multiple bronchodilators, IV Solu-Medrol, Symbicort, DuoNeb, he is also on empi reggie antibiotics, continues to have intermittent cough and wheezing, slight improvement compared to her initial presentation. But she is not back to baseline. The patient is seen today 03/20/2021 in follow-up on the regular medical floor. She is currently resting comfortably in bed. Awake and alert in no acute distress. Still with bilateral wheezing. Still with loose nonproductive cough. She's been afebrile. Maintaining good O2 saturations in the upper 90s on 3 L/m per nasal cannula. Blood cultures revealed no growth. Sputum culture revealed no growth. White count 15.2. Hemoglobin 13.0. Sodium 140. Potassium 3.8. I can't 31. Creatinine 0.64. Glucose 139. She remains on Symbicort, DuoNeb inhalations, IV Solu-Medrol. Lovenox for DVT prophylaxis. Antibiotics in the form of Omnicef. Objective - Vital Signs Vital signs: Vital Signs Temp 98.3 F 03/20/21 08:00 Pulse 98 03/20/21 11:40 Resp 18 03/20/21 08:00 BP 126/65 03/20/21 08:00 Pulse Ox 98 03/20/21 08:00 Intake & Output 03/19/21 03/20/21 03/20/21 18:59 06:59 18:59 Output Total 300 Balance -300 Weight 83 kg Output: Urine 300 Other: # Voids 1 1 - Exam GENERAL EXAM: Alert, very pleasant, 85-year-old female patient, sitting up in bed, on 3 L of oxygen, comfortable in no apparent distress. HEAD: Normocephalic/atraumatic. EYES: Normal reaction of pupils, equal size. Conjunctiva pink, sclera white. NOSE: Clear with pink turbinates. THROAT: No erythema or exudates. NECK: No masses, no JVD, no thyroid enlargement, no adenopathy. CHEST: No chest wall deformity. Symmetrical expansion. LUNGS: Equal air entry with crackles at bilateral bases, end expiratory wheeze and congested cough CVS: Regular rate and rhythm, normal S1 and S2, no gallops, no murmurs, no rubs ABDOMEN: Soft, nontender. No hepatosplenomegaly, normal bowel sounds, no guarding or rigidity. EXTREMITIES: No clubbing, no edema, no cyanosis, 2+ pulses and upper and lower extremities. MUSCULOSKELETAL: Muscle strength and tone normal. SPINE: No scoliosis or deformity SKIN: No rashes CENTRAL NERVOUS SYSTEM: Alert and oriented -3. No focal deficits, tone is normal in all 4 extremities. PSYCHIATRIC: Appropriate affect. Intact judgment and insight. - Labs CBC & Chem 7: 03/20/21 06:39 03/20/21 06:39 Labs: Abnormal Lab Results - Last 24 Hours (Table) 03/19/21 03/19/21 03/20/21 Range/Units 17:01 20:29 06:39 WBC 15.2 H (3.8-10.6) k/uL Carbon Dioxide (22-30) mmol/L BUN (7-17) mg/dL Glucose (74-99) mg/dL POC Glucose (mg/dL) 175 H 185 H (75-99) mg/dL Magnesium (1.6-2.3) mg/dL 03/20/21 03/20/21 03/20/21 Range/Units 06:39 07:03 11:24 WBC (3.8-10.6) k/uL Carbon Dioxide 31 H (22-30) mmol/L BUN 20 H (7-17) mg/dL Glucose 139 H (74-99) mg/dL POC Glucose (mg/dL) 138 H 142 H (75-99) mg/dL Magnesium 2.4 H (1.6-2.3) mg/dL Microbiology - Last 24 Hours (Table) 03/17/21 20:40 Gram Stain - Final Sputum Sputum Culture - Final 03/17/21 00:30 Blood Culture - Preliminary Blood No Growth after 72 hours 03/17/21 00:00 Blood Culture - Preliminary Blood No Growth after 72 hours Assessment and Plan Assessment: 1 Acute exacerbation of moderate chronic extrinsic bronchial asthma, complicated by purulent tracheobronchitis. No clear evidence of pneumonia. COVID-19 PCR was negative, influenza screen was negative 2 Acute exacerbation of COPD/asthma 3 Advanced COPD on home oxygen on as-needed basis, with baseline FEV1 of 74% of predicted 4 Hypertension 5 Hyperlipidemia 6 Osteoarthritis 7 Former smoker 8 Previous history of gastric ulcer 9 Hiatal hernia 10 Previous history of myocardial infarction 11 Patient has completed COVID-19 vaccination Plan: The patient was seen and evaluated by Dr. Carney She has been slow to progress Follow-up chest x-ray pending Increase IV Solu-Medrol to 60 mg every 6 hours Titrate the FiO2 as tolerated Increase her activity as tolerated We will continue to follow I, the cosigning physician, performed a history & physical examination of the patient. Lungs sounds with a bilateral crackles, end expiratory wheeze. Maintaining good O2 saturations in the 90s on 3L/min per nasal canula. I discussed the assessment and plan of care with my nurse practitioner, Teresa Alejandro. I attest to the above note as dictated by her.
--- NOTE | 2021-03-20 14:25 | XR ---
EXAMINATION TYPE: XR chest 2V DATE OF EXAM: 03/20/2021 COMPARISON: Chest x-ray 4 days ago. HISTORY: Dyspnea. TECHNIQUE: Frontal and lateral views of the chest are obtained. FINDINGS: There is mild to moderate left greater than right bibasilar linear scarring and/or atelect asis redemonstrated. Background chronic emphysematous change without suspicious new focal airspace o pacity or pneumothorax. The cardiac silhouette size is stable and within normal limits with atheroscl erotic change aortic knob. The osseous structures are demineralized. Underlying Scoliosis redemonst rated. IMPRESSION: Chronic changes without new acute pulmonary process.
[2021-03-20 14:32] LABS: Lymphocytes # (M) 1.37 k/uL (1.0-4.8); Monocytes # (M) 0.46 k/uL (0-1.0); Neutrophils # (M) 13.38 k/uL (1.3-7.7); Neutrophils % (M) 88 %; Nucleated Red Blood Cells 0 /100 WBC (0-0); Total Cells Counted 100
[2021-03-20 15:01] VITALS: BMI 28.6
--- NOTE | 2021-03-20 15:05 | P.PN ---
Subjective Progress Note Date: 03/20/21 Patient was an 85-year-old female with advanced COPD and emphysema doesn't use any oxygen but uses Floxin on as-needed basis came up a day trip from [facility] with complaints of fever which started about 3 days ago and severe shortness of breath is started about 4 days ago. Patient was in words denied any tick bite. Patient is coughing a phlegm patient denied any dysuria denied any abdominal pain nausea vomiting diarrhea. Patient was having mild headache without any photophobia or neck rigidity. Patient had mildly elevated d-dimer because of which patient had a CT angios the chest which did not show any infiltrate consistent with pneumonia although there is some mild nonspecific infiltrate in the left lower lung dutta because of which patient was started on antibiotics for a pneumonia. Patient has mildly elevated troponins of 0.04 and 0.06, EKG did not show any acute ST-T wave changes. Patient was tested for Covid 19 PCR of which is negative ordering influenza as well. Patient is bit tachycardic does have history of atrial fibrillation, not on any anticoagulation at this time. 03/18/2021 Patient looks a bit better today still having significant wheezing on exam can you with systemic steroids inhalational treatments. Patient's fevers resolved at this time can you with the same antibiotics although there is no clinical evidence of pneumonia at this time. Blood cultures are pending sputum cultures are pending. 03/19/2021 Patient is complaining of some nonproductive cough, she states that is dry and she feels a tickle in her throat. She is requesting something to help with this. As it is causing her some pleuritic chest pain when she coughs. She reports the nurse that she was having chest pain, however my evaluation pain was worse with inspiration and expiration as well as with cough. She denied any chest pressure or palpitations, dizziness or lightheadedness. Patient is alert and oriented 3, she does reside at [facility] assisted living facility. She recently lost her last year and states that due to the circumstances as well as being on prednisone outpatient she felt she was on her right mind when she decided to sell her house and feels that she is too independent for assisted living. On discharge she'll return there and work with her son to find alternate housing. She denies any nausea or vomiting although she does state that she is having some loose stools that began in the last 24 hours. We will check a C. diff. Patient is being followed by ID as well as pulmonary services. Sputum culture is pending, blood cultures are negative. Pro-calcitonin was 0.33, mycoplasma IgG 2.44. Flu is not detected. Patient's been afebrile the last 24 hours, heart rate is 104, blood pressure 129/68. Patient is on telemetry and is reviewed, she does appear to have some isolated elevated heart rate in the 130s, P wave is not visible, could be some PACs or bursts of . Reviewed her cardiology notes and there appears to be an EF of 55% with mild to moderate pulmonary hypertension in November 2019. 03/20/2021 Patient is evaluated today sitting up in the chair. Overall she states that she is feeling worse and yesterday. Lung sounds are worsening with increased wheezing. She continues on 3L of nasal cannula with an oxygen saturation of 99% we can titrate this as needed. A repeat chest x-ray has been ordered. The b lood cell count today is 15.2. Potassium 3.8, mag 2.4. CO2 is 31. A BNP was completed is 590. Blood pressure today is 146/76. Patient was evaluated by PT today who is recommending home on discharge. Patient is maintained on DuoNeb 4 times a day, albuterol as needed, budesonide twice a day, Po Omnicef, IV Solu- Medrol, Mucinex and Cepacol lozenges. ROS: Constitutional: Denied any fatigue denied any fever. Cardio vascular: denied any chest pain, palpitations Gastrointestinal denied any nausea vomiting, reports loose stools Pulmonary: Denied any shortness of breath, reports nonproductive dry persistent cough, reports wheezing Neurologic denied any new focal deficits All inpatient medications were reviewed and appropriate changes in these medications as dictated in the interval history and assessment and plan. PHYSICAL EXAMINATION: GENERAL: The patient is alert and oriented x3, and is in respiratory distress well developed, well nourished. HEENT: Pupils are round and equally reacting to light. EOMI. No scleral icterus. No conjunctival pallor. Normocephalic, atraumatic. No pharyngeal erythema. No thyromegaly. CARDIOVASCULAR: S1 and S2 present. No murmurs, rubs, or gallops. She is in sinus rhythm S1-S2 auscultated regular rate and rhythm PULMONARY significant expiratory wheezing on exam, when she coughs there is harsh rhonchi congested sounding ABDOMEN: Soft, nontender, nondistended, hyperactive bowel sounds. No palpable organomegaly. MUSCULOSKELETAL: No joint swelling or deformity. EXTREMITIES: No cyanosis, clubbing, or pedal edema. NEUROLOGICAL: Gross neurological examination did not reveal any focal deficits. SKIN: No rashes. Assessment and plan -Acute exacerbation of moderate extrinsic bronchial asthma, under wheezing present on examination, DuoNeb's -Fever most likely a component of purulent tracheobronchitis, Legionella negative, mycoplasma IgG positive, not currently infectious process, Covid and flu are negative. There is a elevated pro-calcitonin at 0.33. Chest x-ray shows chronic changes without new acute pulmonary process. -Mild elevation of troponin secondary to hypoxemia no clinical evidence of acute myocardial infarction -Mediastinal adenopathy probably reactive secondary to inflammation -Elevated d-dimer, CTA negative for PE -Sinus tachycardia to sinus rhythm with PACs heart rate is bit better today compared to yesterday -COPD advanced significant emphysema, with mild exacerbation. -Leukocytosis, negative on admission, likely related to IV-Solumedrol -Hyperlipidemia -Hypertension -Hyperglycemia, history of diabetes, most likely related to daily systemic steroids -Mild to moderate pulmonary hypertension, history of, from cardiology reports from a Lexiscan stress in November 2019 DVT prophylaxis: Lovenox GI prophylaxis Pepcid Plan Pending finalized cultures, patient is on oral cefdinir and IV Solu-Medrol. Plan is for discharge to her assisted living facility once medically cleared. We will consult PT and OT. Repeat labs in the morning. Objective - Vital Signs Vital signs: Vital Signs Temp 98.3 F 03/20/21 08:00 Pulse 98 03/20/21 11:40 Resp 18 03/20/21 08:00 BP 126/65 03/20/21 08:00 Pulse Ox 98 03/20/21 08:00 Intake & Output 03/19/21 03/20/21 03/20/21 18:59 06:59 18:59 Output Total 300 Balance -300 Weight 83 kg Output: Urine 300 Other: # Voids 1 1 - Labs CBC & Chem 7: 03/20/21 06:39 03/20/21 06:39 Labs: Abnormal Lab Results - Last 24 Hours (Table) 10/12/0203/19/21 03/20/21 Range/Units 17:01 20:29 06:39 WBC 15.2 H (3.8-10.6) k/uL Carbon Dioxide (22-30) mmol/L BUN (7-17) mg/dL Glucose (74-99) mg/dL POC Glucose (mg/dL) 175 H 185 H (75-99) mg/dL Magnesium (1.6-2.3) mg/dL 03/20/21 03/20/21 03/20/21 Range/Units 06:39 07:03 11:24 WBC (3.8-10.6) k/uL Carbon Dioxide 31 H (22-30) mmol/L BUN 20 H (7-17) mg/dL Glucose 139 H (74-99) mg/dL POC Glucose (mg/dL) 138 H 142 H (75-99) mg/dL Magnesium 2.4 H (1.6-2.3) mg/dL Microbiology - Last 24 Hours (Table) 03/17/21 20:40 Gram Stain - Final Sputum Sputum Culture - Final 03/17/21 00:30 Blood Culture - Preliminary Blood No Growth after 72 hours 03/17/21 00:00 Blood Culture - Preliminary Blood No Growth after 72 hours Assessment and Plan Time with Patient: Greater than 30
[2021-03-20 16:56] LABS: Glucose,Whole Blood 129 mg/dL (75-99)
--- NOTE | 2021-03-20 17:09 | PN ---
PROGRESS NOTE DATE OF SERVICE: 03/20/2021 REASON FOR FOLLOWUP: Fever, tracheobronchitis and question of pneumonia. INTERVAL HISTORY: The patient is afebrile. The patient is still complaining of shortness of breath and wheezing and did have a cough; however, not bringing up any sputum. Patient denies having any nausea or vomiting. No diarrhea. PHYSICAL EXAMINATION: Blood pressure 150/75, pulse of 78, temperature 98.2. She is 98% on 4 L nasal cannula. General description is an elderly female up in the bed in no distress. RESPIRATORY SYSTEM: Unlabored breathing. Bilateral wheezing. HEART: S1, S2. Regular rate and rhythm. ABDOMEN: Soft. No tenderness. LABS: Hemoglobin is 13, white count 15.2. BUN of 20, creatinine 0.64. Sputum has been negative. Blood culture negative. DIAGNOSTIC IMPRESSION AND PLAN: Patient with a fever, concern likely for possible tracheobronchitis/pneumonia, as no other obvious focus of infection. Patient still has significant amount of wheezing and is being managed with Solu-Medrol. Dose has been adjusted up today. Continue along with and monitor clinical course closely. Continue supportive care. MMODL / IJN: [id number] /
[2021-03-20 20:23] LABS: Glucose,Whole Blood 187 mg/dL (75-99)
[2021-03-20] MEDS: ALPRAZolam 0.25 MG TAB PO PRN (21:26)
[2021-03-20] MEDS: BENZOCAINE/MENTHOL LOZENG 1 EACH LOZENGE MUCOUS MEM PRN (21:27)
[2021-03-21] MEDS: methylPREDNISolone SOD SUCCI 40 MG/ML 1 ML VIAL IV SCH ×5 (01:15→23:43)
[2021-03-21] MEDS: SODIUM CHLORIDE 0.9% 1,000 ML IV SCH (05:24)
[2021-03-21 06:45] LABS: Glucose,Whole Blood 127 mg/dL (75-99)
[2021-03-21] MEDS: INSULIN ASPART (NovoLOG) 100 UNIT/ML VIAL SQ SCH ×4 (07:09→20:44)
[2021-03-21 08:25] LABS: African American GFR (CKD) 81 (>60 ml/min/1.73 sqM); Anion Gap 7 mmol/L; Blood Urea Nitrogen 23 mg/dL (7-17); Calcium 9.3 mg/dL (8.4-10.2); Carbon Dioxide 31 mmol/L (22-30); Chloride 101 mmol/L (98-107); Glucose 138 mg/dL (74-99); Non-African American GFR(CKD) 70 (>60 ml/min/1.73 sqM); Potassium 4.6 mmol/L (3.5-5.1); Sodium 139 mmol/L (137-145)
[2021-03-21 09:12] LABS: Basophils # (A) 0.04 X 10*3/uL (0.00-0.10); Basophils % (A) 0.3 %; Eosinophils # (A) 0 X 10*3/uL (0.04-0.35); Eosinophils % (A) 0 %; HCT 39.5 % (37.2-46.3); HGB 12.9 g/dL (12.0-15.0); Lymphocytes # (A) 1.13 X 10*3/uL (0.90-5.00); Lymphocytes % (A) 7.8 %; MCH 31.7 pg (27.0-32.0); MCHC 32.7 g/dL (32.0-37.0); MCV 97.1 fL (80.0-97.0); Mean Platelet Volume 10.6 fL (9.5-12.2); Monocytes % (A) 2.7 %; Neutrophils # (A) 12.82 X 10*3/uL (1.80-7.70); Neutrophils % (A) 87.9 %; Platelet Count 453 X 10*3/uL (140-440); RBC 4.07 X 10*6/uL (4.10-5.20); RDW 12.8 % (11.5-14.5); WBC 14.58 X 10*3/uL (4.50-10.00)
[2021-03-21] MEDS: SYMBICORT 160-4.5 MCG INHALER INHALATION PRN (09:14)
[2021-03-21] MEDS: IPRATROPIUM-ALBUTEROL 3 ML NEB INHALATION SCH ×4 (09:14→22:02)
[2021-03-21] MEDS: ASPIRIN 81 MG PO SCH (09:36)
[2021-03-21] MEDS: FAMOTIDINE 20 MG TAB PO SCH ×2 (09:37→20:46)
[2021-03-21] MEDS: ENOXAPARIN 40 MG/0.4 ML SYRINGE SQ SCH (09:37)
[2021-03-21] MEDS: METOPROLOL TARTRATE 50 MG TAB PO SCH ×2 (09:37→20:45)
[2021-03-21] MEDS: CEFDINIR 300 MG CAP PO SCH ×2 (09:37→20:45)
[2021-03-21] MEDS: LOSARTAN 50 MG TAB PO SCH (09:37)
[2021-03-21 11:40] LABS: Glucose,Whole Blood 133 mg/dL (75-99)
[2021-03-21] MEDS: THEOPHYLLINE 24 HOUR 300 MG CAP.ER.24H PO SCH (12:01)
--- NOTE | 2021-03-21 13:34 | P.PN ---
Subjective Progress Note Date: 03/21/21 Principal diagnosis: Acute exacerbation of moderate chronic extrinsic bronchial asthma complicated by purulent tracheobronchitis This is a 85-year-old -[place] female patient who follows with Dr. Gilbert in the pulmonary clinic for her history of COPD, chronic bronchial asthma, unspecified, her FEV1 value 74% of predicted. Diffusing capacity is 47% of predicted, patient is on home oxygen on an as-needed basis. Previous CT scans of the chest showed emphysema with upper lobe predominance. Patient had previous pseudomonal pulmonary infection. She is a former smoker, her other medical history includes hypertension, dyslipidemia, history of gastric ulcers, and diverticulosis. Patient presented to the emergency department on 03/16/2021 for evaluation of coughing, wheezing, chills, some phlegm production. She states she recently was on the eighth day bus trip to [place], she had returned, and started experiencing worsening coughing and wheezing. Her chest x-ray in the emergency department shows a minimal subsegmental atelectasis at the left lung base which is new compared to the old exam. She is currently on 4 L of oxygen pulse ox of 97%, she did have a fever in the emergency department with a temp of 102.9F. She was tested for COVID-19, and was negative, she states she has completed her COVID-19 vaccinations, she was also tested for influenza and she was negative, she has not received her influenza vaccination this season yet. Denies any chest pain, her lab work has been reviewed showing white blood cell, of 8.8, hemoglobin of 15.3, d-dimer was 0.69, electrolytes and renal profile were unremarkable, plasma lactic acid was 1.1, she did have some troponin elevation of 0.040, 0.061, and 0.052. Urinalysis shows 2+ ketones, trace blood, but no definite sign of infection. 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 There was an infiltrate and atelectasis at the lung bases. Patient was started on ant ibiotics for possibility of underlying pneumonia in the form of azithromycin and Rocephin, she was started on bronchodilators, and this consult was placed for evaluation of shortness of breath. The patient is seen today on 03/18/2021 in follow-up on the selective care unit. She is currently sitting up in a chair at the bedside. Awake and alert in no acute distress. Breathing a bit easier today compared to yesterday. Not quite back to her baseline. She is maintaining good O2 saturations in the 90s on 3 L/m per nasal cannula. His been afebrile. Hemodynamically stable. Blood cultures reveal no growth to date. Sputum culture pending. White count 8.4. Hemoglobin 13.2. Sodium 139. Potassium 3.8. Creatinine 0.6. She is continued on DuoNeb inhalations, Symbicort, IV Solu-Medrol. On empiric antibiotics in form of ceftriaxone and azithromycin. Lovenox for DVT prophylaxis. Reevaluated today on 03/19/2021, patient remains on the medical floor, remains on multiple bronchodilators, IV Solu-Medrol, Symbicort, DuoNeb, he is also on empiric antibiotics, continues to have intermittent cough and wheezing, slight improvement compared to her initial presentation. But she is not back to baseline. The patient is seen today 03/20/2021 in follow-up on the regular medical floor. She is currently resting comfortably in bed. Awake and alert in no acute distress. Still with bilateral wheezing. Still with loose nonproductive cough. She's been afebrile. Maintaining good O2 saturations in the upper 90s on 3 L/m per nasal cannula. Blood cultures revealed no growth. Sputum culture revealed no growth. White count 15.2. Hemoglobin 13.0. Sodium 140. Potassium 3.8. I can't 31. Creatinine 0.64. Glucose 139. She remains on Symbicort, DuoNeb inhalations, IV Solu-Medrol. Lovenox for DVT prophylaxis. Antibiotics in the form of Omnicef. On 03/21/2021 patient seen in follow-up on medical surgical floor. She is still quite tight and bronchospastic, she has been slow to improve, yesterday's chest x-ray showed chronic changes without new acute pulmonary process. Patient remains on IV steroids with Solu-Medrol 60 mg every 6 hours, nebulized bronchodilators, she is on antibiotics in the form of Omnicef, Singulair. Her blood and sputum cultures have shown no growth. Today's labs have been reviewed, we will blood cell count is 14.5, hemoglobin is 12.9, sodium is 139, potassium is 4.6, chloride is 101, CO2 31, BUN of 23 creatinine 0.79. Patient has been maximizing medical treatment, and she still remains dyspneic and bronchospastic, not ready for discharge Objective - Vital Signs Vital signs: Vital Signs Temp 98 F 03/21/21 07:13 Pulse 72 03/21/21 12:12 Resp 17 03/21/21 07:13 BP 145/83 03/21/21 07:13 Pulse Ox 97 03/21/21 07:13 Intake & Output 03/20/21 03/21/21 03/21/21 18:59 06:59 18:59 Intake Total 600 Output Total 300 Balance 300 Weight 83 kg Intake: Intake, IV Titration 240 Amount Sodium Chloride 0.9% 1, 240 000 ml @ 20 mls/hr IV . Q24H KENDAL Rx#:[id number] Oral 360 Output: Urine 300 Other: Voiding Method Toilet Toilet # Voids 4 0 # Bowel Movements 0 - Exam GENERAL EXAM: Alert, very pleasant, 85-year-old female, on not 3 L of oxygen a pulse ox of 97% resting on the gurney in the emergency department comfortable in no apparent distress. HEAD: Normocephalic/atraumatic. EYES: Normal reaction of pupils, equal size. Conjunctiva pink, sclera white. NOSE: Clear with pink turbinates. THROAT: No erythema or exudates. NECK: No masses, no JVD, no thyroid enlargement, no adenopathy. CHEST: No chest wall deformity. Symmetrical expansion. LUNGS: Equal air entry with crackles at bilateral bases, and congested cough CVS: Regular rate and rhythm, normal S1 and S2, no gallops, no murmurs, no rubs ABDOMEN: Soft, nontender. No hepatosplenomegaly, normal bowel sounds, no guarding or rigidity. EXTREMITIES: No clubbing, no edema, no cyanosis, 2+ pulses and upper and lower extremities. MUSCULOSKELETAL: Muscle strength and tone normal. SPINE: No scoliosis or deformity SKIN: No rashes CENTRAL NERVOUS SYSTEM: Alert and oriented -3. No focal deficits, tone is normal in all 4 extremities. PSYCHIATRIC: Alert and oriented -3. Appropriate affect. Intact judgment and insight. - Labs CBC & Chem 7: 03/21/21 05:29 03/21/21 05:29 Labs: Abnormal Lab Results - Last 24 Hours (Table) 03/20/21 03/20/21 03/20/21 Range/Units 06:39 16:54 20:20 WBC (4.50-10.00) X 10*3/uL RBC (4.10-5.20) X 10*6/uL MCV (80.0-97.0) fL Plt Count (140-440) X 10*3/uL Immature Gran # (0.00-0.04) X 10*3/uL Neutrophils # (1.80-7.70) X 10*3/uL Neutrophils # (Manual) 13.38 H (1.3-7.7) k/uL Eosinophils # (0.04-0.35) X 10*3/uL Carbon Dioxide (22-30) mmol/L BUN (7-17) mg/dL Glucose (74-99) mg/dL POC Glucose (mg/dL) 129 H 187 H (75-99) mg/dL 03/21/21 03/21/21 03/21/21 Range/Units 05:29 05:29 06:43 WBC 14.58 H (4.50-10.00) X 10*3/uL RBC 4.07 L (4.10-5.20) X 10*6/uL MCV 97.1 H (80.0-97.0) fL Plt Count 453 H (140-440) X 10*3/uL Immature Gran # 0.19 H (0.00-0.04) X 10*3/uL Neutrophils # 12.82 H (1.80-7.70) X 10*3/uL Neutrophils # (Manual) (1.3-7.7) k/uL Eosinophils # 0 L (0.04-0.35) X 10*3/uL Carbon Dioxide 31 H (22-30) mmol/L BUN 23 H (7-17) mg/dL Glucose 138 H (74-99) mg/dL POC Glucose (mg/dL) 127 H (75-99) mg/dL 03/21/21 Range/Units 11:35 WBC (4.50-10.00) X 10*3/uL RBC (4.10-5.20) X 10*6/uL MCV (80.0-97.0) fL Plt Count (140-440) X 10*3/uL Immature Gran # (0.00-0.04) X 10*3/uL Neutrophils # (1.80-7.70) X 10*3/uL Neutrophils # (Manual) (1.3-7.7) k/uL Eosinophils # (0.04-0.35) X 10*3/uL Carbon Dioxide (22-30) mmol/L BUN (7-17) mg/dL Glucose (74-99) mg/dL POC Glucose (mg/dL) 133 H (75-99) mg/dL Microbiology - Last 24 Hours (Table) 03/17/21 00:30 Blood Culture - Preliminary Blood No Growth after 96 hours 03/17/21 00:00 Blood Culture - Preliminary Blood No Growth after 96 hours 03/17/21 20:40 Gram Stain - Final Sputum Sputum Culture - Final Assessment and Plan Plan: Assessment: #1. Acute exacerbation of moderate extrinsic bronchial asthma with the possibility of some component of COPD, no evidence of pneumonia on the chest x- ray #2. Acute tracheobronchitis #3. Hypertension #4. Hyperlipidemia #5. Osteoarthritis #6. Former smoker #7. Previous history of gastric ulcer #8. Hiatal hernia #9. Previous history of myocardial infarction #10. Patient has completed COVID-19 vaccination Plan: Continue high-dose steroids Continue bronchodilators Continue antibiotics History of chest x-ray has been reviewed showing no acute pulmonary process Patient has been slow to progress, still dyspneic and bronchospastic We will add Theophylline 600 mg daily Continue Singulair We'll continue to follow I performed a history & physical examination of the patient and discussed their management with my nurse practitioner, Lori Walker. I reviewed the nurse practitioner's note and agree with the documented findings and plan of care. Lung sounds are positive for diffuse wheezes throughout the lung dutta. The findings and the impression was discussed with the patient. I attest to the documentation by the nurse practitioner. Time with Patient: Less than 30
[2021-03-21 16:29] LABS: Glucose,Whole Blood 163 mg/dL (75-99)
--- NOTE | 2021-03-21 17:50 | PN ---
PROGRESS NOTE DATE OF SERVICE: 03/21/2021 REASON FOR FOLLOWUP: Possible pneumonia. INTERVAL HISTORY: The patient is afebrile. The patient is breathing slightly comfortably. The patient continues to have a cough; not bringing up any sputum, though. No abdominal pain or diarrhea. PHYSICAL EXAMINATION: Blood pressure 149/72 with a pulse of 78, temperature 98.1. She is 97% on 4 L nasal cannula. General description is an elderly female lying in bed in no distress. RESPIRATORY SYSTEM: Unlabored breathing. Decreased intensity of breath sounds. No wheeze. HEART: S1, S2. Regular rate and rhythm. ABDOMEN: Soft. No tenderness. LABS: White count of ,000. Chest x-ray with new no acute infiltrate. DIAGNOSTIC IMPRESSION AND PLAN: Patient admitted to hospital with fever, source likely asthma exacerbation. No evidence of any infection in any other part of the body. Currently covered with empiric antibiotics; to continue and monitor clinical course closely. Continue supportive care. MMODL / IJN: [id number] /
--- NOTE | 2021-03-21 19:48 | PN ---
PROGRESS NOTE DATE OF SERVICE: 03/21/2021 This 85-year-old woman who was admitted with bronchial asthma, acute exacerbation, as well as fever also was thought to have acute purulent tracheobronchitis. The patient is being closely monitored at this time. Dr. Carney is also following the patient closely. The patient is showing progress with some bronchospasm. No chest pain. No palpitations. No fever. PHYSICAL EXAMINATION: Alert and oriented x3. Pulse 78, blood pressure 149/70, respiration 18, temperature 98.1, pulse ox % on 4 L. HEENT: Conjunctivae normal. NECK: No jugular venous distention. CARDIOVASCULAR: S1, S2 muffled. RESPIRATION: Breath sounds diminished at the bases. A few scattered rhonchi and crackles. ABDOMEN: Soft, nontender. LEGS: No edema. No swelling. NERVOUS SYSTEM: No focal deficit. LABS: WBC 14.5, sodium ntd, potassium 4.2. Glucose noted. ASSESSMENT: 1. Bronchial asthma, acute exacerbation, with acute purulent tracheobronchitis. 2. Fever secondary to acute purulent tracheobronchitis. 3. Mild elevation of troponin secondary to hypoxemia. 4. Mediastinal lymphadenopathy. 5. Elevated D-dimer. CT angio negative for pulmonary embolism. 6. Sinus tachycardia. 7. Chronic obstructive pulmonary disease and advanced emphysema, acute exacerbation. 8. Leukocytosis. 9. Hypertension. 10.Hyperlipidemia. 11.Hyperglycemia. 12.Moderate pulmonary hypertension. 13.Deep vein thrombosis prophylaxis. 14.Increased white count. RECOMMENDATIONS AND DISCUSSION: I recommend to continue current medications, continue with symptomatic treatment. Continue with the bronchodilators. Continue steroids. Continue with empiric antibiotics. Closely follow with Pulmonary. Guarded prognosis. Further recommendations to follow. MMODL / IJN: [id number] / JL
[2021-03-21 20:34] LABS: Glucose,Whole Blood 214 mg/dL (75-99)
[2021-03-21] MEDS: MONTELUKAST 10 MG TAB PO SCH (20:49)
[2021-03-21] MEDS: ALPRAZolam 0.25 MG TAB PO PRN (20:49)
[2021-03-21] MEDS: BUDESONIDE 1 MG/2 ML NEBU INHALATION SCH (22:02)
[2021-03-21] MEDS: FORMOTEROL FUMARATE 20 MCG/2 ML NEBU INHALATION SCH (22:02)
[2021-03-22] MEDS: SODIUM CHLORIDE 0.9% 1,000 ML IV SCH (05:10)
[2021-03-22] MEDS: methylPREDNISolone SOD SUCCI 40 MG/ML 1 ML VIAL IV SCH ×3 (05:51→18:03)
[2021-03-22 07:04] LABS: Glucose,Whole Blood 134 mg/dL (75-99)
[2021-03-22] MEDS: METOPROLOL TARTRATE 50 MG TAB PO SCH ×2 (07:53→22:14)
[2021-03-22] MEDS: CEFDINIR 300 MG CAP PO SCH ×2 (07:53→22:14)
[2021-03-22] MEDS: ASPIRIN 81 MG PO SCH (07:53)
[2021-03-22] MEDS: FAMOTIDINE 20 MG TAB PO SCH ×2 (07:53→22:14)
[2021-03-22] MEDS: LOSARTAN 50 MG TAB PO SCH (07:53)
[2021-03-22] MEDS: THEOPHYLLINE 24 HOUR 300 MG CAP.ER.24H PO SCH (07:53)
[2021-03-22] MEDS: INSULIN ASPART (NovoLOG) 100 UNIT/ML VIAL SQ SCH ×4 (07:54→21:49)
[2021-03-22] MEDS: ENOXAPARIN 40 MG/0.4 ML SYRINGE SQ SCH (07:54)
[2021-03-22] MEDS: ALPRAZolam 0.25 MG TAB PO PRN ×2 (08:01→22:15)
[2021-03-22] MEDS: BUDESONIDE 1 MG/2 ML NEBU INHALATION SCH ×2 (08:36→20:40)
[2021-03-22] MEDS: IPRATROPIUM-ALBUTEROL 3 ML NEB INHALATION SCH ×4 (08:36→20:40)
[2021-03-22] MEDS: FORMOTEROL FUMARATE 20 MCG/2 ML NEBU INHALATION SCH ×2 (08:36→20:40)
[2021-03-22 11:38] LABS: Glucose,Whole Blood 120 mg/dL (75-99)
--- NOTE | 2021-03-22 13:09 | P.PN ---
Subjective Progress Note Date: 03/22/21 This is a 85-year-old -[place] female patient who follows with Dr. Gilbert in the pulmonary clinic for her history of COPD, chronic bronchial asthma, unspecified, her FEV1 value 74% of predicted. Diffusing capacity is 47% of predicted, patient is on home oxygen on an as-needed basis. Previous CT scans of the chest showed emphysema with upper lobe predominance. Patient had previous pseudomonal pulmonary infection. She is a former smoker, her other medical history includes hypertension, dyslipidemia, history of gastric ulcers, and diverticulosis. Patient presented to the emergency department on 03/16/2021 for evaluation of coughing, wheezing, chills, some phlegm production. She stat es she recently was on the eighth day bus trip to [place], she had returned, and started experiencing worsening coughing and wheezing. Her chest x-ray in the emergency department shows a minimal subsegmental atelectasis at the left lung base which is new compared to the old exam. She is currently on 4 L of oxygen pulse ox of 97%, she did have a fever in the emergency department with a temp of 102.9F. She was tested for COVID-19, and was negative, she states she has completed her COVID-19 vaccinations, she was also tested for influenza and she was negative, she has not received her influenza vaccination this season yet. Denies any chest pain, her lab work has been reviewed showing white blood cell, of 8.8, hemoglobin of 15.3, d-dimer was 0.69, electrolytes and renal profile were unremarkable, plasma lactic acid was 1.1, she did have some troponin elevation of 0.040, 0.061, and 0.052. Urinalysis shows 2+ ketones, trace blood, but no definite sign of infection. 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 There was an infiltrate and atelectasis at the lung bases. Patient was started on antibiotics for possibility of underlying pneumonia in the form of azithromycin and Rocephin, she was started on bronchodilators, and this consult was placed for evaluation of shortness of breath. The patient is seen today on 03/18/2021 in follow-up on the selective care unit. She is currently sitting up in a chair at the bedside. Awake and alert in no acute distress. Breathing a bit easier today compared to yesterday. Not quite back to her baseline. She is maintaining good O2 saturations in the 90s on 3 L/m per nasal cannula. His been afebrile. Hemodynamically stable. Blood cultures reveal no growth to date. Sputum culture pending. White count 8.4. Hemoglobin 13.2. Sodium 139. Potassium 3.8. Creatinine 0.6. She is continued on DuoNeb inhalations, Symbicort, IV Solu-Medrol. On empiric antibiotics in form of ceftriaxone and azithromycin. Lovenox for DVT prophylaxis. Reevaluated today on 03/19/2021, patient remains on the medical floor, remains on multiple bronchodilators, IV Solu-Medrol, Symbicort, DuoNeb, he is also on empi reggie antibiotics, continues to have intermittent cough and wheezing, slight improvement compared to her initial presentation. But she is not back to baseline. The patient is seen today 03/20/2021 in follow-up on the regular medical floor. She is currently resting comfortably in bed. Awake and alert in no acute distress. Still with bilateral wheezing. Still with loose nonproductive cough. She's been afebrile. Maintaining good O2 saturations in the upper 90s on 3 L/m per nasal cannula. Blood cultures revealed no growth. Sputum culture revealed no growth. White count 15.2. Hemoglobin 13.0. Sodium 140. Potassium 3.8. I can't 31. Creatinine 0.64. Glucose 139. She remains on Symbicort, DuoNeb inhalations, IV Solu-Medrol. Lovenox for DVT prophylaxis. Antibiotics in the form of Omnicef. The patient is seen today 03/22/2001 in follow-up on the regular medical floor. Currently sitting up in a chair at bedside. Awake and alert in no acute distress. She has been slow to progress. Still quite dyspneic with minimal exertion. Still with a loose congested cough. Maintaining good O2 saturations in the upper 90s on 3 L/m per nasal cannula. She's afebrile. Hemodynamically stable. Blood culture revealed no growth. Sputum culture revealed no growth. Blood glucose 120. Continued on DuoNeb inhalations, Pulmicort and Perforomist inhalations, IV sign Medrol, Singulair, theophylline, Mucinex. Antibiotics in the form of Omnicef. Lovenox for DVT prophylaxis. Objective - Vital Signs Vital signs: Vital Signs Temp 98.2 F 03/22/21 07:56 Pulse 87 03/22/21 12:13 Resp 16 03/22/21 07:56 BP 148/82 03/22/21 07:56 Pulse Ox 98 03/22/21 07:56 Intake & Output 03/21/21 03/22/21 03/22/21 18:59 06:59 18:59 Intake Total 1275 2 236 Balance 1275 2 236 Intake: Oral 1275 2 236 Other: Voiding Method Toilet Toilet Toilet # Voids 2 - Exam GENERAL EXAM: Alert, very pleasant, 85-year-old female patient, sitting up in bed, on 3 L of oxygen, comfortable in no apparent distress. HEAD: Normocephalic/atraumatic. EYES: Normal reaction of pupils, equal size. Conjunctiva pink, sclera white. NOSE: Clear with pink turbinates. THROAT: No erythema or exudates. NECK: No masses, no JVD, no thyroid enlargement, no adenopathy. CHEST: No chest wall deformity. Symmetrical expansion. LUNGS: Equal air entry with crackles at bilateral bases, end expiratory wheeze and congested cough CVS: Regular rate and rhythm, normal S1 and S2, no gallops, no murmurs, no rubs ABDOMEN: Soft, nontender. No hepatosplenomegaly, normal bowel sounds, no guarding or rigidity. EXTREMITIES: No clubbing, no edema, no cyanosis, 2+ pulses and upper and lower extremities. MUSCULOSKELETAL: Muscle strength and tone normal. SPINE: No scoliosis or deformity SKIN: No rashes CENTRAL NERVOUS SYSTEM: Alert and oriented -3. No focal deficits, tone is normal in all 4 extremities. PSYCHIATRIC: Appropriate affect. Intact judgment and insight. - Labs CBC & Chem 7: 03/21/21 05:29 03/21/21 05:29 Labs: Abnormal Lab Results - Last 24 Hours (Table) 03/21/21 03/21/21 03/22/21 Range/Units 16:27 20:31 07:03 POC Glucose (mg/dL) 163 H 214 H 134 H (75-99) mg/dL 03/22/21 Range/Units 11:37 POC Glucose (mg/dL) 120 H (75-99) mg/dL Microbiology - Last 24 Hours (Table) 03/17/21 00:30 Blood Culture - Preliminary Blood No Growth after 120 hours 03/17/21 00:00 Blood Culture - Preliminary Blood No Growth after 120 hours Assessment and Plan Assessment: 1 Acute exacerbation of moderate chronic extrinsic bronchial asthma, complicated by purulent tracheobronchitis. No clear evidence of pneumonia. COVID-19 PCR was negative, influenza screen was negative 2 Acute exacerbation of COPD/asthma 3 Advanced COPD on home oxygen on as-needed basis, with baseline FEV1 of 74% of predicted 4 Hypertension 5 Hyperlipidemia 6 Osteoarthritis 7 Former smoker 8 Previous history of gastric ulcer 9 Hiatal hernia 10 Previous history of myocardial infarction 11 Patient has completed COVID-19 vaccination Plan: The patient was seen and evaluated by Dr. Carney She has been slow to progress May need bronchoscopy with BAL if no significant improvement Continue bronchodilators, IV Solu-Medrol and Omnicef Initiated on theophylline, Singulair, Mucinex Lovenox for DVT prophylaxis Titrate the FiO2 as tolerated Increase her activity as tolerated We will continue to follow I, the cosigning physician, performed a history & physical examination of the patient. Lungs sounds with a bilateral crackles, end expiratory wheeze. Maintaining good O2 saturations in the 90s on 3L/min per nasal canula. I discussed the assessment and plan of care with my nurse practitioner, Teresa Alejandro. I attest to the above note as dictated by her.
--- NOTE | 2021-03-22 16:31 | PN ---
PROGRESS NOTE DATE OF SERVICE: 03/22/2021 This 85-year-old woman who was admitted with asthma, acute exacerbation, also has some purulent tracheobronchitis. No chest pain. No palpitations. No fever. The most recent chest x-ray, which was reviewed personally by me, showed no evidence of any significant pneumonia. PHYSICAL EXAMINATION: Alert and oriented x3. Pulse is 81, blood pressure 136/76, respirations 16, temperature 98.2, pulse ox 97% on room air. HEENT: Conjunctivae normal. NECK: No jugular venous distention. CARDIOVASCULAR: S1, S2 muffled. RESPIRATION: Breath sounds diminished at the bases. A few scattered rhonchi. ABDOMEN: Soft. NERVOUS SYSTEM: No focal deficit. LABS: WBC 14.8, hemoglobin 12.9. Glucose 214 and 120. ASSESSMENT: 1. Bronchial asthma, acute exacerbation, with acute purulent tracheobronchitis. 2. Fever secondary to acute purulent tracheobronchitis. 3. Mild elevation of troponin secondary to hypoxemia. 4. Mediastinal lymphadenopathy. 5. Elevated D-dimer with CT angio negative for pulmonary embolism. 6. Sinus bradycardia. 7. Chronic obstructive pulmonary disease and advanced emphysema with acute exacerbation. 8. Leukocytosis. 9. Hypertension. 10.Hyperlipidemia. 11.Hyperglycemia. 12.Moderate pulmonary hypertension. 13.Deep vein thrombosis prophylaxis. 14.Increased white count. RECOMMENDATIONS AND DISCUSSION: I recommend to continue current medications, continue with symptomatic treatment. Otherwise I would recommend continuing the antibiotics. The white count is elevated. The patient is on IV steroids that were started 2 days ago. Will continue to monitor. Prognosis guarded. Further recommendations to follow. MMODL / IJN: [id number] /
[2021-03-22 16:53] LABS: Glucose,Whole Blood 158 mg/dL (75-99)
--- NOTE | 2021-03-22 17:07 | PN ---
PROGRESS NOTE DATE OF SERVICE: 03/22/2021 REASON FOR FOLLOWUP: Fever, possible tracheobronchitis, rule out for pneumonia. INTERVAL HISTORY: The patient is afebrile. The patient is still complaining of shortness of breath. She did have a cough. Moderate intensity. Unable to bring up any sputum. No vomiting. No abdominal pain. No diarrhea. PHYSICAL EXAMINATION: Blood pressure 136/76, pulse of 81, temperature 98.2. She is 97% on room air. General description is an elderly female up in the bed in no distress. Respiratory system: Unlabored breathing, occasional wheeze. Heart S1, S2. Regular rate and rhythm. Abdomen soft, no tenderness. LABS: No new labs have been obtained today. DIAGNOSTIC IMPRESSION AND PLAN: Patient admitted to the hospital with fever. Concern for possible tracheobronchitis, for pneumonia. Patient is on oral . To continue along with steroids and bronchodilators and monitor clinical course closely. Continue supportive care. MMODL / IJN: [id number] /
[2021-03-22 20:40] LABS: Glucose,Whole Blood 130 mg/dL (75-99)
[2021-03-22] MEDS: MONTELUKAST 10 MG TAB PO SCH (22:14)
[2021-03-22] MEDS: BENZOCAINE/MENTHOL LOZENG 1 EACH LOZENGE MUCOUS MEM PRN (22:14)
[2021-03-23] MEDS: methylPREDNISolone SOD SUCCI 40 MG/ML 1 ML VIAL IV SCH ×5 (00:39→23:26)
[2021-03-23] MEDS: SODIUM CHLORIDE 0.9% 1,000 ML IV SCH (04:00)
[2021-03-23 06:50] LABS: Glucose,Whole Blood 134 mg/dL (75-99)
[2021-03-23] MEDS: INSULIN ASPART (NovoLOG) 100 UNIT/ML VIAL SQ SCH ×4 (07:10→21:02)
[2021-03-23] MEDS: IPRATROPIUM-ALBUTEROL 3 ML NEB INHALATION SCH ×4 (07:50→20:40)
[2021-03-23] MEDS: FORMOTEROL FUMARATE 20 MCG/2 ML NEBU INHALATION SCH ×2 (07:50→20:40)
[2021-03-23] MEDS: BUDESONIDE 1 MG/2 ML NEBU INHALATION SCH ×2 (07:50→20:40)
[2021-03-23] MEDS: CEFDINIR 300 MG CAP PO SCH ×2 (09:58→21:01)
[2021-03-23] MEDS: METOPROLOL TARTRATE 50 MG TAB PO SCH ×2 (09:59→21:01)
[2021-03-23] MEDS: LOSARTAN 50 MG TAB PO SCH (09:59)
[2021-03-23] MEDS: ASPIRIN 81 MG PO SCH (09:59)
[2021-03-23] MEDS: FAMOTIDINE 20 MG TAB PO SCH ×2 (09:59→21:01)
[2021-03-23] MEDS: ENOXAPARIN 40 MG/0.4 ML SYRINGE SQ SCH (09:59)
[2021-03-23] MEDS: THEOPHYLLINE 24 HOUR 300 MG CAP.ER.24H PO SCH (10:07)
[2021-03-23 11:47] LABS: Glucose,Whole Blood 200 mg/dL (75-99)
[2021-03-23] MEDS: NYSTATIN 100,000 UNIT/ML SUSP 500,000 UNIT/5 ML CUP PO SCH ×3 (12:01→21:02)
--- NOTE | 2021-03-23 12:52 | P.PN ---
Subjective Progress Note Date: 03/23/21 Principal diagnosis: Acute exacerbation of moderate chronic extrinsic bronchial asthma complicated by purulent tracheobronchitis This is a 85-year-old -[place]ym[place] female patient who follows with Dr. Gilbert in the pulmonary clinic for her history of COPD, chronic bronchial asthma, unspecified, her FEV1 value 74% of predicted. Diffusing capacity is 47% of predicted, patient is on home oxygen on an as-needed basis. Previous CT scans of the chest showed emphysema with upper lobe predominance. Patient had previous pseudomonal pulmonary infection. She is a former smoker, her other medical history includes hypertension, dyslipidemia, history of gastric ulcers, and diverticulosis. Patient presented to the emergency department on 03/16/2021 for evaluation of coughing, wheezing, chills, some phlegm production. She states she recently was on the eighth day bus trip to [place], she had returned, and started experiencing worsening coughing and wheezing. Her chest x-ray in the emergency department shows a minimal subsegmental atelectasis at the left lung base which is new compared to the old exam. She is currently on 4 L of oxygen pulse ox of 97%, she did have a fever in the emergency department with a temp of 102.9F. She was tested for COVID-19, and was negative, she states she has completed her COVID-19 vaccinations, she was also tested for influenza and she was negative, she has not received her influenza vaccination this season yet. Denies any chest pain, her lab work has been reviewed showing white blood cell, of 8.8, hemoglobin of 15.3, d-dimer was 0.69, electrolytes and renal profile were unremarkable, plasma lactic acid was 1.1, she did have some troponin elevation of 0.040, 0.061, and 0.052. Urinalysis shows 2+ ketones, trace blood, but no definite sign of infection. 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 There was an infiltrate and atelectasis at the lung bases. Patient was started on ant ibiotics for possibility of underlying pneumonia in the form of azithromycin and Rocephin, she was started on bronchodilators, and this consult was placed for evaluation of shortness of breath. The patient is seen today on 03/18/2021 in follow-up on the selective care unit. She is currently sitting up in a chair at the bedside. Awake and alert in no acute distress. Breathing a bit easier today compared to yesterday. Not quite back to her baseline. She is maintaining good O2 saturations in the 90s on 3 L/m per nasal cannula. His been afebrile. Hemodynamically stable. Blood cultures reveal no growth to date. Sputum culture pending. White count 8.4. Hemoglobin 13.2. Sodium 139. Potassium 3.8. Creatinine 0.6. She is continued on DuoNeb inhalations, Symbicort, IV Solu-Medrol. On empiric antibiotics in form of ceftriaxone and azithromycin. Lovenox for DVT prophylaxis. Reevaluated today on 03/19/2021, patient remains on the medical floor, remains on multiple bronchodilators, IV Solu-Medrol, Symbicort, DuoNeb, he is also on empiric antibiotics, continues to have intermittent cough and wheezing, slight improvement compared to her initial presentation. But she is not back to baseline. The patient is seen today 03/20/2021 in follow-up on the regular medical floor. She is currently resting comfortably in bed. Awake and alert in no acute distress. Still with bilateral wheezing. Still with loose nonproductive cough. She's been afebrile. Maintaining good O2 saturations in the upper 90s on 3 L/m per nasal cannula. Blood cultures revealed no growth. Sputum culture revealed no growth. White count 15.2. Hemoglobin 13.0. Sodium 140. Potassium 3.8. I can't 31. Creatinine 0.64. Glucose 139. She remains on Symbicort, DuoNeb inhalations, IV Solu-Medrol. Lovenox for DVT prophylaxis. Antibiotics in the form of Omnicef. On 03/21/2021 patient seen in follow-up on medical surgical floor. She is still quite tight and bronchospastic, she has been slow to improve, yesterday's chest x-ray showed chronic changes without new acute pulmonary process. Patient remains on IV steroids with Solu-Medrol 60 mg every 6 hours, nebulized bronchodilators, she is on antibiotics in the form of Omnicef, Singulair. Her blood and sputum cultures have shown no growth. Today's labs have been reviewed, we will blood cell count is 14.5, hemoglobin is 12.9, sodium is 139, potassium is 4.6, chloride is 101, CO2 31, BUN of 23 creatinine 0.79. Patient has been maximizing medical treatment, and she still remains dyspneic and bronchospastic, not ready for discharge On 03/23/2012 patient seen in follow-up on medical surgical floor, she is still bronchospastic, but doing better, breathing easier, she is currently on 3 L of oxygen pulse ox 98%, she's had no fever overnight, vital signs have been stable. Most recent chest x-ray from 03/20/2021 shows chronic changes without new acute pulmonary process, the patient has been maximizing medical treatment, she remains on IV steroids, she is on theophylline, she is on antibiotics, she is on oral antibiotics, she is on Singulair, she is on Mucinex, Pulmicort and Perforomist and DuoNeb. Blood and sputum cultures have been negative. No new labs today. Objective - Vital Signs Vital signs: Vital Signs Temp 97.9 F 03/23/21 08:34 Pulse 100 03/23/21 11:22 Resp 20 03/23/21 09:57 BP 158/84 03/23/21 09:57 Pulse Ox 98 03/23/21 09:57 Intake & Output 03/22/21 03/23/21 03/23/21 18:59 06:59 18:59 Intake Total 708 Balance 708 Intake: Oral 708 Other: Voiding Method Toilet Toilet # Voids 2 2 - Exam GENERAL EXAM: Alert, very pleasant, 85-year-old female, on not 3 L of oxygen a pulse ox of 97% resting on the gurney in the emergency departme nt comfortable in no apparent distress. HEAD: Normocephalic/atraumatic. EYES: Normal reaction of pupils, equal size. Conjunctiva pink, sclera white. NOSE: Clear with pink turbinates. THROAT: No erythema or exudates. NECK: No masses, no JVD, no thyroid enlargement, no adenopathy. CHEST: No chest wall deformity. Symmetrical expansion. LUNGS: Equal air entry with crackles at bilateral bases, and congested cough CVS: Regular rate and rhythm, normal S1 and S2, no gallops, no murmurs, no rubs ABDOMEN: Soft, nontender. No hepatosplenomegaly, normal bowel sounds, no guarding or rigidity. EXTREMITIES: No clubbing, no edema, no cyanosis, 2+ pulses and upper and lower extremities. MUSCULOSKELETAL: Muscle strength and tone normal. SPINE: No scoliosis or deformity SKIN: No rashes CENTRAL NERVOUS SYSTEM: Alert and oriented -3. No focal deficits, tone is normal in all 4 extremities. PSYCHIATRIC: Alert and oriented -3. Appropriate affect. Intact judgment and insight. - Labs CBC & Chem 7: 03/21/21 05:29 03/21/21 05:29 Labs: Abnormal Lab Results - Last 24 Hours (Table) 03/22/21 03/22/21 03/23/21 Range/Units 16:49 20:37 06:49 POC Glucose (mg/dL) 158 H 130 H 134 H (75-99) mg/dL 03/23/21 Range/Units 11:46 POC Glucose (mg/dL) 200 H (75-99) mg/dL Microbiology - Last 24 Hours (Table) 03/17/21 00:30 Blood Culture - Final Blood No Growth after 144 hours 03/17/21 00:00 Blood Culture - Final Blood No Growth after 144 hours Assessment and Plan Plan: Assessment: #1. Acute exacerbation of moderate extrinsic bronchial asthma with the possibility of some component of COPD, no evidence of pneumonia on the chest x- ray #2. Acute tracheobronchitis #3. Hypertension #4. Hyperlipidemia #5. Osteoarthritis #6. Former smoker #7. Previous history of gastric ulcer #8. Hiatal hernia #9. Previous history of myocardial infarction #10. Patient has completed COVID-19 vaccination Plan: Continue current medical treatment Patient has been maximized on medical treatment, she is starting to improve on today's exam Continue steroids Continue bronchodilators Continue antibiotics History of chest x-ray has been reviewed showing no acute pulmonary process Patient has been slow to progress, still dyspneic and bronchospastic Continue theophylline Continue Singulair If continues to improve, may consider for discharge home in the next 24 hours. I performed a history & physical examination of the patient and discussed their management with my nurse practitioner, Lori Walker. I reviewed the nurse practitioner's note and agree with the documented findings and plan of care. Lung sounds are positive for diffuse wheezes throughout the lung dutta. The findings and the impression was discussed with the patient. I attest to the documentation by the nurse practitioner. Time with Patient: Less than 30
[2021-03-23 16:36] LABS: Glucose,Whole Blood 135 mg/dL (75-99)
--- NOTE | 2021-03-23 18:49 | PN ---
PROGRESS NOTE DATE OF SERVICE: 03/23/2021 This 85-year-old woman who was admitted with acute bronchial asthma exacerbation has improved significantly. No chest pain. No palpitations. The patient also had acute purulent tracheobronchitis. PHYSICAL EXAMINATION: Alert and oriented x3. Pulse 72, blood pressure 136/75, respirations 17, temperature 98.6, pulse ox 98% on 2 L. HEENT: Conjunctivae normal. Oral mucosa moist. NECK: No jugular venous distention. No lymph node enlargement. CARDIOVASCULAR: S1, S2, muffled. No S3, no S4, RESPIRATORY: Diminished breath sounds at the bases. A few scattered rhonchi. ABDOMEN: Soft. NERVOUS SYSTEM: No focal deficits. LABS: Glucose 201, 135. ASSESSMENT: 1. Acute bronchial asthma acute exacerbation with acute purulent tracheobronchitis. 2. Fever secondary to acute purulent tracheobronchitis. 3. Mild elevation of troponin secondary to hypoxemia. 4. Mediastinal lymphadenopathy. 5. Elevated D-dimer with CT angio negative for pulmonary embolism. 6. Sinus bradycardia. 7. Chronic obstructive pulmonary disease and advanced emphysema with acute exacerbation. 8. Leukocytosis. 9. Hypertension. 10.Hyperlipidemia. 11.Hyperglycemia. 12.Moderate pulmonary hypertension. 13.Deep vein thrombosis prophylaxis. 14.Increased WBC. RECOMMENDATIONS AND DISCUSSION: Recommend to continue current management, continue symptomatic treatment. Continue steroids. Continue antibiotics. Closely monitor. Guarded prognosis. Further recommendations to follow. MMHENOKL / DAGMARN: [id number] /
[2021-03-23 20:34] LABS: Glucose,Whole Blood 175 mg/dL (75-99)
[2021-03-23] MEDS: MONTELUKAST 10 MG TAB PO SCH (21:01)
--- NOTE | 2021-03-24 02:57 | PN ---
PROGRESS NOTE DATE OF SERVICE: 03/23/2021 REASON FOR FOLLOWUP: Fever, question of tracheobronchitis/pneumonia. INTERVAL HISTORY: The patient is afebrile. The patient is breathing comfortably slightly. The patient denies having any chest pain. She is complaining of cough. Not bringing up any sputum. No abdominal pain. Did have some runny stool for which C difficile was negative. PHYSICAL EXAMINATION: Blood pressure 129/70 with a pulse of 71, temperature 98. She is 99% on 3 L nasal cannula. General description is an elderly female lying in bed in no distress. Respiratory system: Unlabored breathing with decreased intensity of breath sounds. No wheeze. Heart S1, S2. Regular rate and rhythm. Abdomen soft, no tenderness. LABS: No new labs have been obtained today. Sputum has been negative. Blood culture negative. DIAGNOSTIC IMPRESSION AND PLAN: Patient admitted to the hospital with shortness of breath. This patient did have a fever, possible tracheobronchitis, less likely pneumonia. Sputum has been negative for any resistant pathogen. Blood culture negative. The patient's fever has resolved. May consider short course of oral Ceftin. Continue supportive care. MMODL / IJN: [id number] /
[2021-03-24] MEDS: SODIUM CHLORIDE 0.9% 1,000 ML IV SCH (06:01)
[2021-03-24] MEDS: methylPREDNISolone SOD SUCCI 40 MG/ML 1 ML VIAL IV SCH ×3 (06:33→17:16)
[2021-03-24 06:41] LABS: Glucose,Whole Blood 141 mg/dL (75-99)
[2021-03-24] MEDS: INSULIN ASPART (NovoLOG) 100 UNIT/ML VIAL SQ SCH ×4 (07:39→21:40)
[2021-03-24] MEDS: THEOPHYLLINE 24 HOUR 300 MG CAP.ER.24H PO SCH (07:40)
[2021-03-24] MEDS: CEFDINIR 300 MG CAP PO SCH (07:40)
[2021-03-24] MEDS: LOSARTAN 50 MG TAB PO SCH (07:41)
[2021-03-24] MEDS: ASPIRIN 81 MG PO SCH (07:41)
[2021-03-24] MEDS: FAMOTIDINE 20 MG TAB PO SCH ×2 (07:41→21:40)
[2021-03-24] MEDS: NYSTATIN 100,000 UNIT/ML SUSP 500,000 UNIT/5 ML CUP PO SCH ×4 (07:41→21:40)
[2021-03-24] MEDS: METOPROLOL TARTRATE 50 MG TAB PO SCH ×2 (07:41→21:40)
[2021-03-24] MEDS: ENOXAPARIN 40 MG/0.4 ML SYRINGE SQ SCH (07:41)
--- NOTE | 2021-03-24 08:22 | XR ---
EXAMINATION TYPE: XR chest 1V portable DATE OF EXAM: 03/24/2021 COMPARISON: 03/20/2021 INDICATION: Asthma, dyspnea TECHNIQUE: Single frontal view of the chest is obtained. FINDINGS: The heart size is normal. The pulmonary vasculature is normal. Mild plate atelectasis at the left infrahilar region. Some minimal increased lung markings are noted peripherally through the bilateral lungs which are change particularly for atelectasis. Scoliosis is present. IMPRESSION: 1. Some developing minimal platelike atelectasis
[2021-03-24] MEDS: BUDESONIDE 1 MG/2 ML NEBU INHALATION SCH ×2 (08:44→19:35)
[2021-03-24] MEDS: IPRATROPIUM-ALBUTEROL 3 ML NEB INHALATION SCH ×4 (08:44→19:37)
[2021-03-24] MEDS: FORMOTEROL FUMARATE 20 MCG/2 ML NEBU INHALATION SCH ×2 (08:44→19:35)
[2021-03-24 11:23] LABS: Basophils % (A) 0.4 %; Eosinophils # (A) 0 X 10*3/uL (0.04-0.35); Eosinophils % (A) 0 %; HCT 44.4 % (37.2-46.3); HGB 14.1 g/dL (12.0-15.0); Lymphocytes # (A) 1.23 X 10*3/uL (0.90-5.00); Lymphocytes % (A) 5.3 %; MCH 30.9 pg (27.0-32.0); MCHC 31.8 g/dL (32.0-37.0); MCV 97.2 fL (80.0-97.0); Mean Platelet Volume 10.4 fL (9.5-12.2); Monocytes # (A) 0.92 X 10*3/uL (0.20-1.00); Monocytes % (A) 3.9 %; Neutrophils # (A) 19.95 X 10*3/uL (1.80-7.70); Neutrophils % (A) 85.5 %; Platelet Count 572 X 10*3/uL (140-440); RBC 4.57 X 10*6/uL (4.10-5.20); RDW 12.9 % (11.5-14.5); WBC 23.35 X 10*3/uL (4.50-10.00)
[2021-03-24 11:28] LABS: Glucose,Whole Blood 184 mg/dL (75-99)
[2021-03-24 11:42] LABS: BUN/Creat Ratio 34.46 Ratio (12.00-20.00)
[2021-03-24 11:43] LABS: African American GFR (CKD) 83.3 (60.0-200.0); Blood Urea Nitrogen 26.4 mg/dL (9.0-27.0); Calcium 9.4 mg/dL (8.7-10.3); Carbon Dioxide 30.3 mmol/L (21.6-31.8); Non-African American GFR(CKD) 71.9 (60.0-200.0); Potassium 4.6 mmol/L (3.5-5.5)
--- NOTE | 2021-03-24 14:48 | P.PN ---
Subjective Progress Note Date: 03/24/21 Principal diagnosis: Acute exacerbation of moderate chronic extrinsic bronchial asthma complicated by purulent tracheobronchitis This is a 85-year-old -[place] female patient who follows with Dr. Gilbert in the pulmonary clinic for her history of COPD, chronic bronchial asthma, unspecified, her FEV1 value 74% of predicted. Diffusing capacity is 47% of predicted, patient is on home oxygen on an as-needed basis. Previous CT scans of the chest showed emphysema with upper lobe predominance. Patient had previous pseudomonal pulmonary infection. She is a former smoker, her other medical history includes hypertension, dyslipidemia, history of gastric ulcers, and diverticulosis. Patient presented to the emergency department on 03/16/2021 for evaluation of coughing, wheezing, chills, some phlegm production. She states she recently was on the eighth day bus trip to [place], she had returned, and started experiencing worsening coughing and wheezing. Her chest x-ray in the emergency department shows a minimal subsegmental atelectasis at the left lung base which is new compared to the old exam. She is currently on 4 L of oxygen pulse ox of 97%, she did have a fever in the emergency department with a temp of 102.9F. She was tested for COVID-19, and was negative, she states she has completed her COVID-19 vaccinations, she was also tested for influenza and she was negative, she has not received her influenza vaccination this season yet. Denies any chest pain, her lab work has been reviewed showing white blood cell, of 8.8, hemoglobin of 15.3, d-dimer was 0.69, electrolytes and renal profile were unremarkable, plasma lactic acid was 1.1, she did have some troponin elevation of 0.040, 0.061, and 0.052. Urinalysis shows 2+ ketones, trace blood, but no definite sign of infection. 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 There was an infiltrate and atelectasis at the lung bases. Patient was started on ant ibiotics for possibility of underlying pneumonia in the form of azithromycin and Rocephin, she was started on bronchodilators, and this consult was placed for evaluation of shortness of breath. The patient is seen today on 03/18/2021 in follow-up on the selective care unit. She is currently sitting up in a chair at the bedside. Awake and alert in no acute distress. Breathing a bit easier today compared to yesterday. Not quite back to her baseline. She is maintaining good O2 saturations in the 90s on 3 L/m per nasal cannula. His been afebrile. Hemodynamically stable. Blood cultures reveal no growth to date. Sputum culture pending. White count 8.4. Hemoglobin 13.2. Sodium 139. Potassium 3.8. Creatinine 0.6. She is continued on DuoNeb inhalations, Symbicort, IV Solu-Medrol. On empiric antibiotics in form of ceftriaxone and azithromycin. Lovenox for DVT prophylaxis. Reevaluated today on 03/19/2021, patient remains on the medical floor, remains on multiple bronchodilators, IV Solu-Medrol, Symbicort, DuoNeb, he is also on empiric antibiotics, continues to have intermittent cough and wheezing, slight improvement compared to her initial presentation. But she is not back to baseline. The patient is seen today 03/20/2021 in follow-up on the regular medical floor. She is currently resting comfortably in bed. Awake and alert in no acute distress. Still with bilateral wheezing. Still with loose nonproductive cough. She's been afebrile. Maintaining good O2 saturations in the upper 90s on 3 L/m per nasal cannula. Blood cultures revealed no growth. Sputum culture revealed no growth. White count 15.2. Hemoglobin 13.0. Sodium 140. Potassium 3.8. I can't 31. Creatinine 0.64. Glucose 139. She remains on Symbicort, DuoNeb inhalations, IV Solu-Medrol. Lovenox for DVT prophylaxis. Antibiotics in the form of Omnicef. On 03/21/2021 patient seen in follow-up on medical surgical floor. She is still quite tight and bronchospastic, she has been slow to improve, yesterday's chest x-ray showed chronic changes without new acute pulmonary process. Patient remains on IV steroids with Solu-Medrol 60 mg every 6 hours, nebulized bronchodilators, she is on antibiotics in the form of Omnicef, Singulair. Her blood and sputum cultures have shown no growth. Today's labs have been reviewed, we will blood cell count is 14.5, hemoglobin is 12.9, sodium is 139, potassium is 4.6, chloride is 101, CO2 31, BUN of 23 creatinine 0.79. Patient has been maximizing medical treatment, and she still remains dyspneic and bronchospastic, not ready for discharge On 03/23/2012 patient seen in follow-up on medical surgical floor, she is still bronchospastic, but doing better, breathing easier, she is currently on 3 L of oxygen pulse ox 98%, she's had no fever overnight, vital signs have been stable. Most recent chest x-ray from 03/20/2021 shows chronic changes without new acute pulmonary process, the patient has been maximizing medical treatment, she remains on IV steroids, she is on theophylline, she is on antibiotics, she is on oral antibiotics, she is on Singulair, she is on Mucinex, Pulmicort and Perforomist and DuoNeb. Blood and sputum cultures have been negative. No new labs today. On 03/24/2021 patient seen in follow-up on medical surgical floor. She is breathing much more comfortably, less dyspneic and bronchospastic, pulse ox is 90%, no fever or chills, patient did develop a little diarrhea. But the breathing is improving, follow-up chest x-ray today shows some developing minimal platelike atelectasis. Today's labs have been reviewed, white blood cell count has increased to 23.3 likely on the basis of IV steroids, hemoglobin is 14.1, sodium was 142, potassium is 4.6, chloride is 99, B1 is 26.4, creatinine 0.8. Her stool for C. diff was negative. Her blood sputum cultures have shown no growth. Patient is currently on IV steroids, nebulized bronchodilators, theophylline. She is receiving cough medication. Objective - Vital Signs Vital signs: Vital Signs Temp 98.4 F 03/24/21 12:56 Pulse 84 03/24/21 12:56 Resp 17 03/24/21 12:56 BP 145/71 03/24/21 12:56 Pulse Ox 90 L 03/24/21 12:56 Intake & Output 03/23/21 03/24/21 03/24/21 18:59 06:59 18:59 Other: Voiding Method Toilet # Voids 1 - Exam GENERAL EXAM: Alert, very pleasant, 85-year-old female, on room air with a pulse ox of 90% comfortable in no apparent distress. HEAD: Normocephalic/atraumatic. EYES: Normal reaction of pupils, equal size. Conjunctiva pink, sclera white. NOSE: Clear with pink turbinates. THROAT: No erythema or exudates. NECK: No masses, no JVD, no thyroid enlargement, no adenopathy. CHEST: No chest wall deformity. Symmetrical expansion. LUNGS: Equal air entry with crackles at bilateral bases, and congested cough CVS: Regular rate and rhythm, normal S1 and S2, no gallops, no murmurs, no rubs ABDOMEN: Soft, nontender. No hepatosplenomegaly, normal bowel sounds, no guarding or rigidity. EXTREMITIES: No clubbing, no edema, no cyanosis, 2+ pulses and upper and lower extremities. MUSCULOSKELETAL: Muscle strength and tone normal. SPINE: No scoliosis or deformity SKIN: No rashes CENTRAL NERVOUS SYSTEM: Alert and oriented -3. No focal deficits, tone is normal in all 4 extremities. PSYCHIATRIC: Alert and oriented -3. Appropriate affect. Intact judgment and insight. - Labs CBC & Chem 7: 03/24/21 07:01 03/24/21 07:01 Labs: Abnormal Lab Results - Last 24 Hours (Table) 03/23/21 03/23/21 03/24/21 Range/Units 16:35 20:14 06:39 WBC (4.50-10.00) X 10*3/uL MCV (80.0-97.0) fL MCHC (32.0-37.0) g/dL Plt Count (140-440) X 10*3/uL Absolute Nucleated RBC (0.00-0.00) X 10*3/uL Immature Gran # (0.00-0.04) X 10*3/uL Neutrophils # (1.80-7.70) X 10*3/uL Eosinophils # (0.04-0.35) X 10*3/uL NRBC/100 WBC Diff (0.0-0.0) /100 WBCS Anion Gap (4.00-12.00) mmol/L BUN/Creatinine Ratio (12.00-20.00) Ratio Glucose (70-110) mg/dL POC Glucose (mg/dL) 135 H 175 H 141 H (75-99) mg/dL 1011/21 10/11/21 10/11/21 Range/Units 07:01 07:01 11:25 WBC 23.35 H (4.50-10.00) X 10*3/uL MCV 97.2 H (80.0-97.0) fL MCHC 31.8 L (32.0-37.0) g/dL Plt Count 572 H (140-440) X 10*3/uL Absolute Nucleated RBC 0.04 H (0.00-0.00) X 10*3/uL Immature Gran # 1.15 H (0.00-0.04) X 10*3/uL Neutrophils # 19.95 H (1.80-7.70) X 10*3/uL Eosinophils # 0 L (0.04-0.35) X 10*3/uL NRBC/100 WBC Diff 0.2 H (0.0-0.0) /100 WBCS Anion Gap 13.00 H (4.00-12.00) mmol/L BUN/Creatinine Ratio 34.46 H (12.00-20.00) Ratio Glucose 128 H (70-110) mg/dL POC Glucose (mg/dL) 184 H (75-99) mg/dL Assessment and Plan Plan: Assessment: #1. Acute exacerbation of moderate extrinsic bronchial asthma with the possibility of some component of COPD, no evidence of pneumonia on the chest x- ray #2. Acute tracheobronchitis #3. Hypertension #4. Hyperlipidemia #5. Osteoarthritis #6. Former smoker #7. Previous history of gastric ulcer #8. Hiatal hernia #9. Previous history of myocardial infarction #10. Patient has completed COVID-19 vaccination #11. Diarrhea, stool for C. diff was negative Plan: Patient continues to improve Vital signs have been stable Breathing is improving Today's chest x-ray has been reviewed showing this platelike atelectasis No fever or chills Cultures are negative From pulmonary perspective she can be considered for discharge home on prednisone taper, her maintenance inhalers Trelegy, Ventolin, Mucinex, she can continue Singulair, theophylline Outpatient follow-up with Dr. Gilbert in the office in one or 2 weeks I performed a history & physical examination of the patient and discussed their management with my nurse practitioner, Lori Walker. I reviewed the nurse practitioner's note and agree with the documented findings and plan of care. Lung sounds are positive for diffuse wheezes throughout the lung dutta. The findings and the impression was discussed with the patient. I attest to the documentation by the nurse practitioner. Time with Patient: Less than 30
[2021-03-24 16:54] LABS: Glucose,Whole Blood 169 mg/dL (75-99)
--- NOTE | 2021-03-24 18:52 | PN ---
PROGRESS NOTE DATE OF SERVICE: 03/24/2021. This 85-year-old woman who was admitted with acute bronchial asthma, acute exacerbation, acute purulent tracheobronchitis, is complaining of some shaking chills and some weakness and diarrhea last night. Chest x-ray showed some minimal platelike atelectasis. No chest pain. No palpitations. No fever. PHYSICAL EXAMINATION: Alert and oriented x3. The pulse is 84, blood pressure 145/71, respiration 17, temperature 98.4, pulse ox 98% on room air. HEENT: Conjunctivae normal. NECK: No jugular venous distention. CARDIOVASCULAR: S1, S2 muffled. RESPIRATION: Breath sounds diminished at the bases. A few scattered rhonchi. ABDOMEN: Soft, nontender. LEGS: No edema. No swelling. NERVOUS SYSTEM: No focal deficit. LAB STUDIES: WBC 23.25. Sodium 142. ASSESSMENT: 1. Acute bronchial asthma exacerbation with acute purulent tracheobronchitis. 2. Diarrhea, possibly antibiotic-induced. 3. Rule out Clostridium difficile colitis. 4. Acute purulent tracheobronchitis. 5. Mild elevation of troponin secondary to hypoxemia. 6. Mediastinal lymphadenopathy history. 7. Elevated D-dimer with CT angio negative for pulmonary embolism. 8. Sinus bradycardia. 9. Chronic obstructive pulmonary disease as well as advanced emphysema with acute exacerbation. 10.Leukocytosis. 11.Hypertension. 12.Hyperlipidemia. 13.Hyperglycemia. 14.Moderate pulmonary hypertension. 15.Deep vein thrombosis prophylaxis. 16.Increased white count. RECOMMENDATIONS AND DISCUSSION: I recommend to continue current medications, continue with symptomatic treatment. Otherwise at this time I would recommend C difficile checking. Stop the p.o. antibiotics. Prognosis guarded because of multiple complex medical issues. Repeat labs in the morning. Further recommendations to follow. Closely follow with Pulmonary. MMODL / IJN: [id number] /
[2021-03-24 21:00] LABS: Glucose,Whole Blood 169 mg/dL (75-99)
[2021-03-24] MEDS: MONTELUKAST 10 MG TAB PO SCH (21:40)
[2021-03-24] MEDS: ALPRAZolam 0.25 MG TAB PO PRN (21:40)
[2021-03-25] MEDS: methylPREDNISolone SOD SUCCI 40 MG/ML 1 ML VIAL IV SCH (00:24)
[2021-03-25] MEDS ORDERED: methylPREDNISolone SOD SUCCI 125 MG/2 ML VIAL IV SCH (00:53)
[2021-03-25 06:52] LABS: Glucose,Whole Blood 152 mg/dL (75-99)
[2021-03-25 08:00] VITALS: BP 143/74; RESP 17; TEMP 97.9
[2021-03-25 08:29] LABS: Basophils # (A) 0.1 k/uL (0-0.2); Basophils % (A) 0 %; Eosinophils # (A) 0.1 k/uL (0-0.7); Eosinophils % (A) 0 %; HCT 45.4 % (34.0-46.0); HGB 14.5 gm/dL (11.4-16.0); Lymphocytes % (A) 4 %; MCV 97.2 fL (80.0-100.0); Monocytes # (A) 0.5 k/uL (0-1.0); Monocytes % (A) 2 %; Neutrophils # (A) 25.4 k/uL (1.3-7.7); Neutrophils % (A) 94 %; Platelet Count 578 k/uL (150-450); RBC 4.67 m/uL (3.80-5.40); RDW 12.3 % (11.5-15.5); WBC 27.2 k/uL (3.8-10.6)
[2021-03-25 08:37] LABS: ALT 23 U/L (4-34); AST 23 U/L (14-36); African American GFR (CKD) 76 (>60 ml/min/1.73 sqM); Albumin 3.5 g/dL (3.5-5.0); Albumin/Globulin Ratio 1.3; Alkaline Phosphatase 65 U/L (38-126); Anion Gap 8 mmol/L; Blood Urea Nitrogen 30 mg/dL (7-17); Calcium 9.4 mg/dL (8.4-10.2); Carbon Dioxide 34 mmol/L (22-30); Chloride 99 mmol/L (98-107); Globulin 2.6 g/dL; Glucose 138 mg/dL (74-99); Non-African American GFR(CKD) 66 (>60 ml/min/1.73 sqM); Potassium 4.2 mmol/L (3.5-5.1); Sodium 141 mmol/L (137-145); Total Bilirubin 0.5 mg/dL (0.2-1.3); Total Protein 6.1 g/dL (6.3-8.2)
[2021-03-25] MEDS: FORMOTEROL FUMARATE 20 MCG/2 ML NEBU INHALATION SCH (08:43)
[2021-03-25] MEDS: BUDESONIDE 1 MG/2 ML NEBU INHALATION SCH (08:44)
[2021-03-25] MEDS: IPRATROPIUM-ALBUTEROL 3 ML NEB INHALATION SCH ×2 (08:44→12:08)
[2021-03-25] MEDS: FAMOTIDINE 20 MG TAB PO SCH (08:47)
[2021-03-25] MEDS: INSULIN ASPART (NovoLOG) 100 UNIT/ML VIAL SQ SCH ×2 (08:47→12:53)
[2021-03-25] MEDS: ASPIRIN 81 MG PO SCH (08:47)
[2021-03-25] MEDS: ENOXAPARIN 40 MG/0.4 ML SYRINGE SQ SCH (08:47)
[2021-03-25] MEDS: METOPROLOL TARTRATE 50 MG TAB PO SCH (08:48)
[2021-03-25] MEDS: LOSARTAN 50 MG TAB PO SCH (08:48)
[2021-03-25] MEDS: NYSTATIN 100,000 UNIT/ML SUSP 500,000 UNIT/5 ML CUP PO SCH ×2 (09:18→12:53)
[2021-03-25] MEDS: THEOPHYLLINE 24 HOUR 300 MG CAP.ER.24H PO SCH (09:18)
--- NOTE | 2021-03-25 11:40 | P.EN ---
Patient has a history of COPD and currently requiring oxygen via nasal cannula at 2 L and will require this upon discharge secondary to her shortness of breath from chronic obstructive pulmonary disease. Prescription provided to case management and arranging discharge planning.
[2021-03-25 11:47] LABS: Glucose,Whole Blood 169 mg/dL (75-99)
[2021-03-25 12:25] VITALS: PULSE 88
--- NOTE | 2021-03-25 12:32 | P.PN ---
Subjective Progress Note Date: 03/25/21 Principal diagnosis: Acute exacerbation of moderate chronic extrinsic bronchial asthma complicated by purulent tracheobronchitis This is a 85-year-old -[place] female patient who follows with Dr. Gilbert in the pulmonary clinic for her history of COPD, chronic bronchial asthma, unspecified, her FEV1 value 74% of predicted. Diffusing capacity is 47% of predicted, patient is on home oxygen on an as-needed basis. Previous CT scans of the chest showed emphysema with upper lobe predominance. Patient had previous pseudomonal pulmonary infection. She is a former smoker, her other medical history includes hypertension, dyslipidemia, history of gastric ulcers, and diverticulosis. Patient presented to the emergency department on 03/16/2021 for evaluation of coughing, wheezing, chills, some phlegm production. She states she recently was on the eighth day bus trip to [place], she had returned, and started experiencing worsening coughing and wheezing. Her chest x-ray in the emergency department shows a minimal subsegmental atelectasis at the left lung base which is new compared to the old exam. She is currently on 4 L of oxygen pulse ox of 97%, she did have a fever in the emergency department with a temp of 102.9F. She was tested for COVID-19, and was negative, she states she has completed her COVID-19 vaccinations, she was also tested for influenza and she was negative, she has not received her influenza vaccination this season yet. Denies any chest pain, her lab work has been reviewed showing white blood cell, of 8.8, hemoglobin of 15.3, d-dimer was 0.69, electrolytes and renal profile were unremarkable, plasma lactic acid was 1.1, she did have some troponin elevation of 0.040, 0.061, and 0.052. Urinalysis shows 2+ ketones, trace blood, but no definite sign of infection. 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 There was an infiltrate and atelectasis at the lung bases. Patient was started on ant ibiotics for possibility of underlying pneumonia in the form of azithromycin and Rocephin, she was started on bronchodilators, and this consult was placed for evaluation of shortness of breath. The patient is seen today on 03/18/2021 in follow-up on the selective care unit. She is currently sitting up in a chair at the bedside. Awake and alert in no acute distress. Breathing a bit easier today compared to yesterday. Not quite back to her baseline. She is maintaining good O2 saturations in the 90s on 3 L/m per nasal cannula. His been afebrile. Hemodynamically stable. Blood cultures reveal no growth to date. Sputum culture pending. White count 8.4. Hemoglobin 13.2. Sodium 139. Potassium 3.8. Creatinine 0.6. She is continued on DuoNeb inhalations, Symbicort, IV Solu-Medrol. On empiric antibiotics in form of ceftriaxone and azithromycin. Lovenox for DVT prophylaxis. Reevaluated today on 03/19/2021, patient remains on the medical floor, remains on multiple bronchodilators, IV Solu-Medrol, Symbicort, DuoNeb, he is also on empiric antibiotics, continues to have intermittent cough and wheezing, slight improvement compared to her initial presentation. But she is not back to baseline. The patient is seen today 03/20/2021 in follow-up on the regular medical floor. She is currently resting comfortably in bed. Awake and alert in no acute distress. Still with bilateral wheezing. Still with loose nonproductive cough. She's been afebrile. Maintaining good O2 saturations in the upper 90s on 3 L/m per nasal cannula. Blood cultures revealed no growth. Sputum culture revealed no growth. White count 15.2. Hemoglobin 13.0. Sodium 140. Potassium 3.8. I can't 31. Creatinine 0.64. Glucose 139. She remains on Symbicort, DuoNeb inhalations, IV Solu-Medrol. Lovenox for DVT prophylaxis. Antibiotics in the form of Omnicef. On 03/21/2021 patient seen in follow-up on medical surgical floor. She is still quite tight and bronchospastic, she has been slow to improve, yesterday's chest x-ray showed chronic changes without new acute pulmonary process. Patient remains on IV steroids with Solu-Medrol 60 mg every 6 hours, nebulized bronchodilators, she is on antibiotics in the form of Omnicef, Singulair. Her blood and sputum cultures have shown no growth. Today's labs have been reviewed, we will blood cell count is 14.5, hemoglobin is 12.9, sodium is 139, potassium is 4.6, chloride is 101, CO2 31, BUN of 23 creatinine 0.79. Patient has been maximizing medical treatment, and she still remains dyspneic and bronchospastic, not ready for discharge On 03/23/2012 patient seen in follow-up on medical surgical floor, she is still bronchospastic, but doing better, breathing easier, she is currently on 3 L of oxygen pulse ox 98%, she's had no fever overnight, vital signs have been stable. Most recent chest x-ray from 03/20/2021 shows chronic changes without new acute pulmonary process, the patient has been maximizing medical treatment, she remains on IV steroids, she is on theophylline, she is on antibiotics, she is on oral antibiotics, she is on Singulair, she is on Mucinex, Pulmicort and Perforomist and DuoNeb. Blood and sputum cultures have been negative. No new labs today. On 03/24/2021 patient seen in follow-up on medical surgical floor. She is breathing much more comfortably, less dyspneic and bronchospastic, pulse ox is 90%, no fever or chills, patient did develop a little diarrhea. But the breathing is improving, follow-up chest x-ray today shows some developing minimal platelike atelectasis. Today's labs have been reviewed, white blood cell count has increased to 23.3 likely on the basis of IV steroids, hemoglobin is 14.1, sodium was 142, potassium is 4.6, chloride is 99, B1 is 26.4, creatinine 0.8. Her stool for C. diff was negative. Her blood sputum cultures have shown no growth. Patient is currently on IV steroids, nebulized bronchodilators, theophylline. She is receiving cough medication. On 03/25/2021 patient seen in follow-up on medical surgical floor, she is currently down to 2 L of oxygen, she continues to improve although generally she looks weak. . Lung sounds are much improved, no wheezing, no rhonchi, no complaints of chest pain. Patient continues on nebulized bronchodilators, she is on IV steroids, Pulmicort, Perforomist, Omnicef and theodur. Her blood sputum cultures show no growth. Today's labs have been reviewed, her white blood cell is 27.2, hemoglobin is 14.5, sodium is 140 potassium is 4.2, CO2 34, B1 is 30 creatinine 0.84. Yesterday patient was having some diarrhea, stool for C. diff was negative. She is tolerating oral intake, no nausea or vomiting. She is requesting to go home today however she only has a small portable oxygen, she will likely need concentrated set up as well. Objective - Vital Signs Vital signs: Vital Signs Temp 97.9 F 03/25/21 07:59 Pulse 88 03/25/21 12:24 Resp 17 03/25/21 07:59 BP 143/74 03/25/21 07:59 Pulse Ox 90 L 03/25/21 11:28 Intake & Output 03/24/21 03/25/21 03/25/21 18:59 06:59 18:59 Other: Voiding Method Toilet # Voids 5 - Exam GENERAL EXAM: Alert, very pleasant, 85-year-old female, on room air with a pulse ox of 90% comfortable in no apparent distress. HEAD: Normocephalic/atraumatic. EYES: Normal reaction of pupils, equal size. Conjunctiva pink, sclera white. NOSE: Clear with pink turbinates. THROAT: No erythema or exudates. NECK: No masses, no JVD, no thyroid enlargement, no adenopathy. CHEST: No chest wall deformity. Symmetrical expansion. LUNGS: Equal air entry with crackles at bilateral bases, and congested cough CVS: Regular rate and rhythm, normal S1 and S2, no gallops, no murmurs, no rubs ABDOMEN: Soft, nontender. No hepatosplenomegaly, normal bowel sounds, no guarding or rigidity. EXTREMITIES: No clubbing, no edema, no cyanosis, 2+ pulses and upper and lower extremities. MUSCULOSKELETAL: Muscle strength and tone normal. SPINE: No scoliosis or deformity SKIN: No rashes CENTRAL NERVOUS SYSTEM: Alert and oriented -3. No focal deficits, tone is normal in all 4 extremities. PSYCHIATRIC: Alert and oriented -3. Appropriate affect. Intact judgment and insight. - Labs CBC & Chem 7: 03/25/21 07:19 03/25/21 07:19 Labs: Abnormal Lab Results - Last 24 Hours (Table) 03/24/21 03/24/21 03/25/21 Range/Units 16:53 20:39 06:51 WBC (3.8-10.6) k/uL Plt Count (150-450) k/uL Neutrophils # (1.3-7.7) k/uL Carbon Dioxide (22-30) mmol/L BUN (7-17) mg/dL Glucose (74-99) mg/dL POC Glucose (mg/dL) 169 H 169 H 152 H (75-99) mg/dL Total Protein (6.3-8.2) g/dL 03/25/21 03/25/21 03/25/21 Range/Units 07:19 07:19 11:46 WBC 27.2 H (3.8-10.6) k/uL Plt Count 578 H (150-450) k/uL Neutrophils # 25.4 H (1.3-7.7) k/uL Carbon Dioxide 34 H (22-30) mmol/L BUN 30 H (7-17) mg/dL Glucose 138 H (74-99) mg/dL POC Glucose (mg/dL) 169 H (75-99) mg/dL Total Protein 6.1 L (6.3-8.2) g/dL Assessment and Plan Plan: Assessment: #1. Acute exacerbation of moderate extrinsic bronchial asthma with the possibility of some component of COPD, no evidence of pneumonia on the chest x- ray #2. Acute tracheobronchitis #3. Hypertension #4. Hyperlipidemia #5. Osteoarthritis #6. Former smoker #7. Previous history of gastric ulcer #8. Hiatal hernia #9. Previous history of myocardial infarction #10. Patient has completed COVID-19 vaccination #11. Diarrhea, stool for C. diff was negative Plan: Patient continues to improve Currently down to 2 L of oxygen However she will need oxygen concentrator for home use as she does desaturate with ambulation She will he has small portable oxygen At home We'll speak to discharge planning Otherwise from pulmonary perspective she can be considered for discharge home on prednisone taper, her maintenance inhalers Trelegy, Ventolin, Mucinex, she can continue Singulair, theophylline Outpatient follow-up with Dr. Gilbert in the office in one or 2 weeks I performed a history & physical examination of the patient and discussed their management with my nurse practitioner, Lori Walker. I reviewed the nurse practitioner's note and agree with the documented findings and plan of care. Lung sounds are positive for diffuse wheezes throughout the lung dutta. The f indings and the impression was discussed with the patient. I attest to the documentation by the nurse practitioner. Time with Patient: Less than 30
--- NOTE | 2021-03-25 18:52 | DS ---
DISCHARGE SUMMARY DATE OF SERVICE: 03/25/2021 FINAL DIAGNOSES: 1. Acute bronchial asthma, acute exacerbation with acute purulent tracheobronchitis. 2. Diarrhea, possible antibiotic induced, improved. 3. Mild elevation of troponin secondary to hypoxemia. No evidence of myocardial infarction. 4. Mediastinal lymphadenopathy history. 5. Elevated D-dimer with CT angio negative for pulmonary embolism. 6. Sinus bradycardia. 7. Chronic obstructive pulmonary disease as well as advanced emphysema with acute exacerbation. 8. Leukocytosis. 9. Hypertension. 10.Hyperlipidemia. 11.Hypoglycemia. 12.Moderate pulmonary hypertension. 13.Deep vein thrombosis prophylaxis. 14.Increased WBC. DISCHARGE DISPOSITION: The patient will be discharged in stable condition with guarded prognosis. Pulmonary cleared the patient. HISTORY OF PRESENT ILLNESS: This 85-year-old woman with a past medical history of multiple medical problems, admitted with acute bronchial asthma, acute exacerbation, as well as purulent tracheobronchitis treated with bronchodilators, steroids, antibiotics, pulmonary Dr. Carney and Dr. Richardson saw the patient. On exam, vitals signs are stable. Cardiovascular: S1, S2. Abdomen soft. Nervous system: No focal deficits. The patient has some diarrhea. C difficile negative, which improved significantly. Patient discharge in stable condition. DISCHARGE ADVICE AND MEDICATIONS: 1. Diet is cardiac diet. 2. Activity limited until followup. 3. Follow up with Dr. Gilbert as recommended. DISCHARGE MEDICATIONS: 1. Ecotrin 81 mg p.o. daily. 2. Lopressor 50 mg p.o. b.i.d. 3. Losartan 100 mg p.o. q.h.s. 4. Guaifenesin as before. 5. Protonix 40 mg p.o. daily. 6. Fluticasone 1 puff daily, that is Trelegy Ellipta. 7. Albuterol 2 puffs p.r.n. 8. Albuterol nebulizer p.r.n. 9. Augmentin 875 mg 1 p.o. b.i.d. 10.DuoNeb t.i.d. and p.r.n. 11.Guaifenesin p.r.n. 12.Nystatin. 13.Prednisone taper with 40 mg daily for 3 days, 30 for 3 days, 20 for 3 days and 10 for 3 days. 14.Singulair 10 mg q.h.s. 15.Gigi-24 600 mg daily. Once again, the patient will be discharged in stable condition with guarded prognosis. MMRANDEE / IJN: [id number] / MTDD
[2021-03-25] MEDS ORDERED: SYMBICORT 160-4.5 MCG INHALER INHALATION SCH (20:00)
[2021-03-26] MEDS ORDERED: predniSONE 10 MG TAB PO SCH (09:00)
== END 2021-03-25 15:49 | disposition home health service (06) | DRG 190 ==
LOC: EC 22:06 → 3SCARD 03-17 02:22 → 4SSUR 03-18 20:55
PROVIDERS: ADMIT Hospitalist; ATTEND Hospitalist
DX: J43.9 Emphysema, unspecified (principal); J96.01 Acute respiratory failure with hypoxia; J96.02 Acute respiratory failure with hypercapnia; J45.901 Unspecified asthma with (acute) exacerbation; I48.20 Chronic atrial fibrillation, unspecified; E11.649 Type 2 diabetes mellitus with hypoglycemia without coma; E11.65 Type 2 diabetes mellitus with hyperglycemia; E78.5 Hyperlipidemia, unspecified; H91.90 Unspecified hearing loss, unspecified ear; I10 Essential (primary) hypertension; I25.10 Atherosclerotic heart disease of native coronary artery without angina pectoris; I25.2 Old myocardial infarction; I27.20 Pulmonary hypertension, unspecified; J20.9 Acute bronchitis, unspecified; K44.9 Diaphragmatic hernia without obstruction or gangrene; M19.90 Unspecified osteoarthritis, unspecified site; Z20.822 Contact with and (suspected) exposure to COVID-19; Z79.82 Long term (current) use of aspirin; Z79.899 Other long term (current) drug therapy; Z80.0 Family history of malignant neoplasm of digestive organs; Z80.1 Family history of malignant neoplasm of trachea, bronchus and lung; Z82.5 Family history of asthma and other chronic lower respiratory diseases; Z87.11 Personal history of peptic ulcer disease; Z87.891 Personal history of nicotine dependence; Z90.710 Acquired absence of both cervix and uterus; Z99.81 Dependence on supplemental oxygen; R19.7 Diarrhea, unspecified; R77.8 Other specified abnormalities of plasma proteins
CPT/HCPCS: 36415; 71045; 71046; 71275; 80048; 80053; 81001; 83605; 83735; 83880; 84145; 84484; 85025; 85027; 85379; 85610; 85730; 86738; 87040; 87070; 87205; 87324; 87449; 87502; 87635; 93005; 94640; 94760; 96365; 99285

== ENCOUNTER → 2021-08-14 | Outpatient (CLI) | payer MEDICARE, BC ==
[2021-08-14 15:07] LABS: Chol/HDL Ratio 2.71 Ratio; LDL Cholesterol,Calculated 108.6 mg/dL (0.0-131.0); VLDL Calculation 13.34 mg/dL (5.00-40.00)
== END | disposition home or self-care (01) ==
LOC: LABWHC1 08:46
PROVIDERS: ATTEND Nurse Practitioner
DX: E78.5 Hyperlipidemia, unspecified (principal)
CPT/HCPCS: 36415; 80061

== ENCOUNTER → 2021-10-13 | Outpatient (CLI) | payer MEDICARE, BC ==
[2021-10-13 22:59] LABS: Basophils # (A) 0.05 X 10*3/uL (0.00-0.10); Basophils % (A) 0.8 %; Eosinophils # (A) 0.16 X 10*3/uL (0.04-0.35); Eosinophils % (A) 2.4 %; HGB 15.2 g/dL (12.0-15.0); Immature Grans, Automated 0.2 %; Lymphocytes # (A) 1.57 X 10*3/uL (0.90-5.00); Lymphocytes % (A) 23.7 %; MCH 30.8 pg (27.0-32.0); MCHC 32.3 g/dL (32.0-37.0); MCV 95.1 fL (80.0-97.0); Mean Platelet Volume 10.5 fL (9.5-12.2); Monocytes # (A) 0.49 X 10*3/uL (0.20-1.00); Monocytes % (A) 7.4 %; NRBC Per 100 WBC 0 /100 WBCS (0.0-0.0); Neutrophils # (A) 4.35 X 10*3/uL (1.80-7.70); Neutrophils % (A) 65.5 %; Platelet Count 386 X 10*3/uL (140-440); RBC 4.94 X 10*6/uL (4.10-5.20); RDW 12.9 % (11.5-14.5); WBC 6.63 X 10*3/uL (4.50-10.00)
[2021-10-13 23:15] LABS: INR 0.96 (0.90-1.11); Prothrombin Time 10.9 sec (9.9-11.9)
[2021-10-13 23:18] LABS: ALT 12 U/L (8-44); AST 22 U/L (13-35); African American GFR (CKD) 75.7 (60.0-200.0); Albumin 4.3 g/dL (3.8-4.9); Albumin/Globulin Ratio 1.51 (1.60-3.17); Alkaline Phosphatase 103 U/L (41-126); BUN/Creat Ratio 17.37 Ratio (12.00-20.00); Blood Urea Nitrogen 14.4 mg/dL (9.0-27.0); Calcium 9.9 mg/dL (8.7-10.3); Carbon Dioxide 25.8 mmol/L (20.0-27.5); Chloride 103 mmol/L (96-109); Chol/HDL Ratio 2.09 Ratio; Globulin 2.8 g/dL (1.6-3.3); Glucose 98 mg/dL (70-110); LDL Cholesterol,Calculated 54.2 mg/dL (0.0-131.0); Non-African American GFR(CKD) 65.3 (60.0-200.0); Potassium 3.9 mmol/L (3.5-5.5); Sodium 142 mmol/L (135-145); Total Protein 7.1 g/dL (6.2-8.2); VLDL Calculation 16.08 mg/dL (5.00-40.00)
== END | disposition home or self-care (01) ==
LOC: LABWHC1 14:02
PROVIDERS: ATTEND Internal Medicine Geriatric Medicine
DX: Z01.812 Encounter for preprocedural laboratory examination (principal); D59.12 Cold autoimmune hemolytic anemia; M54.81 Occipital neuralgia
CPT/HCPCS: 36415; 80053; 80061; 84443; 85025; 85610

== ENCOUNTER → 2021-10-13 | Outpatient (CLI) | payer MEDICARE, BC | END | disposition home or self-care (01) | LOC: LABPAT 13:59 | PROVIDERS: ATTEND Orthopaedic Surgery | DX: Z01.812 Encounter for preprocedural laboratory examination (principal); Z22.322 Carrier or suspected carrier of Methicillin resistant Staphylococcus aureus; M17.11 Unilateral primary osteoarthritis, right knee | CPT/HCPCS: 87070 ==

== ENCOUNTER 2021-11-07 10:27 | Emergency (ER) | payer MEDICARE, BC ==
[2021-11-07 10:46] VITALS: BP 136/103; RESP 16; TEMP 98.7
[2021-11-07] MEDS ORDERED: IPRATROPIUM-ALBUTEROL 3 ML NEB INHALATION STA (11:16)
--- NOTE | 2021-11-07 11:19 | ED ---
General Adult HPI - General Chief complaint: Shortness of Breath Stated complaint: SOB Time Seen by Provider: 11/07/21 10:52 Source: patient, RN notes reviewed, old records reviewed Mode of arrival: EMS Limitations: no limitations - History of Present Illness Initial comments: Patient is a pleasant 85-year-old female presenting to the emergency Department with difficulty breathing. Onset of symptoms was several days ago. Patient did have cough however that has improved. Patient questions if she had fever several days ago. Patient is postop 10 days right knee replacement. Patient does have some leg swelling however denies any calf pain. No chest pain. Patient does have chronic similar symptoms associated with COPD. - Related Data Home Medications Medication Instructions Recorded Confirmed Losartan Potassium 100 mg PO HS@2100 10/30/14 11/07/21 Albuterol Inhaler [Ventolin Hfa 2 puff INHALATION RT-QID PRN 03/17/21 11/07/21 Inhaler] Metoprolol Tartrate [Lopressor] 50 mg PO DAILY@0800 03/17/21 11/07/21 Fluticasone/Salmeterol [Advair 1 puff INHALATION RT-BID PRN 10/20/21 11/07/21 500-50 Diskus] Mirabegron [Myrbetriq] 25 mg PO DAILY@0800 10/20/21 11/07/21 Moisture Eye Drops 1 drop BOTH EYES TID PRN 10/20/21 11/07/21 Rosuvastatin [Crestor] 10 mg PO HS@2100 10/20/21 11/07/21 Sodium Chloride [Saline Nasal 1 spray EA NOSTRIL DAILY@0800 10/20/21 11/07/21 [place]] Tiotropium 18 Mcg/Puff [Spiriva] 1 puff INHALATION RT-DAILY@0800 10/20/21 11/07/21 Acetaminophen [Acetaminophen ER] 650 mg PO Q4H PRN 11/07/21 11/07/21 Albuterol Nebulized [Ventolin 2.5 mg INHALATION RT-QID 11/07/21 11/07/21 Nebulized] Apixaban [Eliquis] 2.5 mg PO BID@0800,1700 11/07/21 11/07/21 Docusate [Colace] 100 mg PO BID@0800,1700 11/07/21 11/07/21 Docusate [Colace] 200 mg PO HS@209911/07/21 11/07/21 Ensure Enlive 120 ml PO TID@0800,1200,1700 11/07/21 11/07/21 Magnesium Hydroxide [Milk of 7,200 mg PO DAILY PRN 11/07/21 11/07/21 Magnesia Concentrate] Na Phos,M-B/Na Phos,Di-Ba [Fleet 133 ml RECTAL DAILY PRN 11/07/21 11/07/21 Adult] Sennosides-Docusate Sodium 2 tab PO HS@209911/07/21 11/07/21 [Senokot-S] bisacodyL [Dulcolax] 10 mg RECTAL DAILY PRN 11/07/21 11/07/21 polyethylene glycoL 3350 [Miralax] 17 gm PO DAILY@0800 11/07/21 11/07/21 Previous Rx's Medication Instructions Recorded traMADol HCl [Ultram] 50 mg PO Q6H PRN #32 tab 10/22/21 Azithromycin [Zithromax Z-pack (6 250 mg PO DIRECTED #6 tab 11/07/21 tabs)] methylPREDNISolone Dose Pack 24 mg PO DAILY #1 tab 11/07/21 [Medrol Dose Pack] Allergies Allergy/AdvReac Type Severity Reaction Status Date / Time hydrocodone bitartrate AdvReac states Verified 11/07/21 11:50 [From Vicodin] "doesn't make me feel good" prednisone AdvReac Hallucinati Verified 11/07/21 11:50 ons Review of Systems ROS Statement: Those systems with pertinent positive or pertinent negative responses have been documented in the HPI. ROS Other: All systems not noted in ROS Statement are negative. Constitutional: Reports: as per HPI Eyes: Denies: eye pain ENT: Denies: ear pain Respiratory: Reports: as per HPI, dyspnea Cardiovascular: Denies: chest pain Endocrine: Denies: fatigue Gastrointestinal: Denies: abdominal pain Genitourinary: Denies: dysuria Musculoskeletal: Denies: back pain Skin: Denies: rash Neurological: Denies: weakness Past Medical History Past Medical History: Asthma, COPD, Eye Disorder, Hearing Disorder / Deafness, Hyperlipidemia, Hypertension, Liver Disease, Osteoarthritis (OA) Additional Past Medical History / Comment(s): Hx stomach ulcer, cysts on liver., urinary leakage., small hiatal hernia, diverticulosis, tinnitus , Pneumonia 2020., Oxygen @ 2 L PRN., environmental allergies, back pain., 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 Last Myocardial Infarction Date:: 40 years ago History of Any Multi-Drug Resistant Organisms: None Reported Past Surgical History: Cholecystectomy, Hysterectomy, Orthopedic Surgery Additional Past Surgical History / Comment(s): KNEE arthroscopy, COLONOSCOPY- LARGE POLYP REMOVED, EGD, cataracts, Right TKA (10/21/21) Past Anesthesia/Blood Transfusion Reactions: No Reported Reaction Additional Past Anesthesia/Blood Transfusion Reaction / Comment(s): No hx blood transfusion. Past Psychological History: No Psychological Hx Reported Smoking Status: Former smoker Past Alcohol Use History: Occasional Past Drug Use History: None Reported - Past Family History Sister(s) Family Medical History: Cancer Additional Family Medical History / Comment(s): #1 sister colon cancer, # 2 sister lung cancer. Father Family Medical History: Cancer Additional Family Medical History / Comment(s): Prostate cancer. Mother Family Medical History: Asthma Additional Family Medical History / Comment(s): Heart problems. General Exam Limitations: no limitations General appearance: alert, in no apparent distress Head exam: Present: normocephalic Eye exam: Present: normal appearance Neck exam: Present: normal inspection Respiratory exam: Present: decreased breath sounds Cardiovascular Exam: Present: regular rate, normal rhythm GI/Abdominal exam: Present: soft. Absent: tenderness Extremities exam: Present: pedal edema (Right leg). Absent: calf tenderness Neurological exam: Present: alert Psychiatric exam: Present: normal affect, normal mood Skin exam: Present: normal color Course Vital Signs 11/07/21 11/07/21 11/07/21 10:33 13:54 14:02 Temperature 98.7 F Pulse Rate 79 75 72 Respiratory 16 Rate Blood Pressure 136/103 O2 Sat by Pulse 96 Oximetry EKG Findings - EKG Comments: EKG Findings:: Sinus rhythm with rate of 76. TX 1625. QRS 90. QT 373. QTC 403. Normal axis. Normal QRS. No acute ST change. Medical Decision Making - Medical Decision Making Patient reevaluated and feeling better. Patient states she is mostly on oxygen at home however does not use at all at times. Pulse ox 98% on 2 L. Lung sounds improved, slightly decreased. Patient requests discharge home. Patient does request steroids and antibiotics - Lab Data Result diagrams: 11/07/21 11:50 11/07/21 11:50 Lab Results 11/07/21 11/07/21 11/07/21 Range/Units 11:50 11:50 11:50 WBC 8.9 (3.8-10.6) k/uL RBC 3.90 (3.80-5.40) m/uL Hgb 11.4 (11.4-16.0) gm/dL Hct 36.9 (34.0-46.0) % MCV 94.6 (80.0-100.0) fL MCH 29.3 (25.0-35.0) pg MCHC 30.9 L (31.0-37.0) g/dL RDW 12.5 (11.5-15.5) % Plt Count 713 H (150-450) k/uL MPV 7.3 Neutrophils % 69 % Lymphocytes % 17 % Monocytes % 6 % Eosinophils % 7 % Basophils % 1 % Neutrophils # 6.1 (1.3-7.7) k/uL Lymphocytes # 1.5 (1.0-4.8) k/uL Monocytes # 0.5 (0-1.0) k/uL Eosinophils # 0.6 (0-0.7) k/uL Basophils # 0.1 (0-0.2) k/uL Hypochromasia Slight PT 11.0 (9.0-12.0) sec INR 1.0 (<1.2) APTT 25.5 (22.0-30.0) sec Sodium 139 (137-145) mmol/L Potassium 3.9 (3.5-5.1) mmol/L Chloride 100 (98-107) mmol/L Carbon Dioxide 34 H (22-30) mmol/L Anion Gap 5 mmol/L BUN 14 (7-17) mg/dL Creatinine 0.73 (0.52-1.04) mg/dL Est GFR (CKD-EPI)AfAm 88 (>60 ml/min/1.73 sqM) Est GFR (CKD-EPI)NonAf 77 (>60 ml/min/1.73 sqM) Glucose 105 H (74-99) mg/dL Plasma Lactic Acid Jace (0.7-2.0) mmol/L Calcium 9.1 (8.4-10.2) mg/dL Total Bilirubin 0.3 (0.2-1.3) mg/dL AST 22 (14-36) U/L ALT 14 (4-34) U/L Alkaline Phosphatase 80 (38-126) U/L Troponin I (0.000-0.034) ng/mL Total Protein 6.1 L (6.3-8.2) g/dL Albumin 3.6 (3.5-5.0) g/dL Coronavirus (PCR) (Not Detectd) Influenza Type A RNA (Not Detectd) Influenza Type B (PCR) (Not Detectd) 11/07/21 11/07/21 11/07/21 Range/Units 11:50 11:50 11:50 WBC (3.8-10.6) k/uL RBC (3.80-5.40) m/uL Hgb (11.4-16.0) gm/dL Hct (34.0-46.0) % MCV (80.0-100.0) fL MCH (25.0-35.0) pg MCHC (31.0-37.0) g/dL RDW (11.5-15.5) % Plt Count (150-450) k/uL MPV Neutrophils % % Lymphocytes % % Monocytes % % Eosinophils % % Basophils % % Neutrophils # (1.3-7.7) k/uL Lymphocytes # (1.0-4.8) k/uL Monocytes # (0-1.0) k/uL Eosinophils # (0-0.7) k/uL Basophils # (0-0.2) k/uL Hypochromasia PT (9.0-12.0) sec INR (<1.2) APTT (22.0-30.0) sec Sodium (137-145) mmol/L Potassium (3.5-5.1) mmol/L Chloride (98-107) mmol/L Carbon Dioxide (22-30) mmol/L Anion Gap mmol/L BUN (7-17) mg/dL Creatinine (0.52-1.04) mg/dL Est GFR (CKD-EPI)AfAm (>60 ml/min/1.73 sqM) Est GFR (CKD-EPI)NonAf (>60 ml/min/1.73 sqM) Glucose (74-99) mg/dL Plasma Lactic Acid Jace 1.1 (0.7-2.0) mmol/L Calcium (8.4-10.2) mg/dL Total Bilirubin (0.2-1.3) mg/dL AST (14-36) U/L ALT (4-34) U/L Alkaline Phosphatase (38-126) U/L Troponin I <0.012 (0.000-0.034) ng/mL Total Protein (6.3-8.2) g/dL Albumin (3.5-5.0) g/dL Coronavirus (PCR) (Not Detectd) Influenza Type A RNA Not Detected (Not Detectd) Influenza Type B (PCR) Not Detected (Not Detectd) 11/07/21 Range/Units 11:50 WBC (3.8-10.6) k/uL RBC (3.80-5.40) m/uL Hgb (11.4-16.0) gm/dL Hct (34.0-46.0) % MCV (80.0-100.0) fL MCH (25.0-35.0) pg MCHC (31.0-37.0) g/dL RDW (11.5-15.5) % Plt Count (150-450) k/uL MPV Neutrophils % % Lymphocytes % % Monocytes % % Eosinophils % % Basophils % % Neutrophils # (1.3-7.7) k/uL Lymphocytes # (1.0-4.8) k/uL Monocytes # (0-1.0) k/uL Eosinophils # (0-0.7) k/uL Basophils # (0-0.2) k/uL Hypochromasia PT (9.0-12.0) sec INR (<1.2) APTT (22.0-30.0) sec Sodium (137-145) mmol/L Potassium (3.5-5.1) mmol/L Chloride (98-107) mmol/L Carbon Dioxide (22-30) mmol/L Anion Gap mmol/L BUN (7-17) mg/dL Creatinine (0.52-1.04) mg/dL Est GFR (CKD-EPI)AfAm (>60 ml/min/1.73 sqM) Est GFR (CKD-EPI)NonAf (>60 ml/min/1.73 sqM) Glucose (74-99) mg/dL Plasma Lactic Acid Jace (0.7-2.0) mmol/L Calcium (8.4-10.2) mg/dL Total Bilirubin (0.2-1.3) mg/dL AST (14-36) U/L ALT (4-34) U/L Alkaline Phosphatase (38-126) U/L Troponin I (0.000-0.034) ng/mL Total Protein (6.3-8.2) g/dL Albumin (3.5-5.0) g/dL Coronavirus (PCR) Not Detected (Not Detectd) Influenza Type A RNA (Not Detectd) Influenza Type B (PCR) (Not Detectd) - Radiology Data Radiology results: report reviewed (Ultrasound negative for DVT. Chest CT negative for PE.) Disposition Clinical Impression: COPD exacerbation Disposition: HOME SELF-CARE Condition: Stable Instructions (If sedation given, give patient instructions): COPD (Chronic Obstructive Pulmonary Disease) (ED) Additional Instructions: Prescriptions have been sent to pharmacy. Please follow-up with her primary care physician in the next day or 2 for recheck. Return for fever, difficulty breathing, worsening symptoms or other concerns. Prescriptions: methylPREDNISolone Dose Pack [Medrol Dose Pack] 24 mg PO DAILY #1 tab Azithromycin [Zithromax Z-pack (6 tabs)] 250 mg PO DIRECTED #6 tab Is patient prescribed a controlled substance at d/c from ED?: No Referrals: Pepe Shine MD [Primary Care Provider] - 1-2 days Time of Disposition: 14:33
[2021-11-07 12:03] LABS: Basophils # (A) 0.1 k/uL (0-0.2); Basophils % (A) 1 %; Eosinophils # (A) 0.6 k/uL (0-0.7); Eosinophils % (A) 7 %; HCT 36.9 % (34.0-46.0); HGB 11.4 gm/dL (11.4-16.0); Hypochromasia Slight; Lymphocytes # (A) 1.5 k/uL (1.0-4.8); Lymphocytes % (A) 17 %; MCH 29.3 pg (25.0-35.0); MCHC 30.9 g/dL (31.0-37.0); MCV 94.6 fL (80.0-100.0); Mean Platelet Volume 7.3; Monocytes # (A) 0.5 k/uL (0-1.0); Monocytes % (A) 6 %; Neutrophils # (A) 6.1 k/uL (1.3-7.7); Neutrophils % (A) 69 %; Platelet Count 713 k/uL (150-450); RDW 12.5 % (11.5-15.5); WBC 8.9 k/uL (3.8-10.6)
[2021-11-07 12:21] LABS: Partial Thromboplastin Time 25.5 sec (22.0-30.0)
[2021-11-07 12:23] LABS: Albumin 3.6 g/dL (3.5-5.0); Calcium 9.1 mg/dL (8.4-10.2); Potassium 3.9 mmol/L (3.5-5.1); Total Bilirubin 0.3 mg/dL (0.2-1.3); Total Protein 6.1 g/dL (6.3-8.2)
--- NOTE | 2021-11-07 13:40 | CT ---
EXAMINATION TYPE: CT angio chest DATE OF EXAM: 11/07/2021 COMPARISON: Prior chest CT August 18, 2017. Prior CT March 17, 2021. HISTORY: chest pain, SOB CT DLP: 282.7 mGycm. Automated Exposure Control for Dose Reduction was Utilized. CONTRAST: CTA scan of the thorax is performed with IV Contrast, patient injected with 60cc mL of Isovue 370, pu lmonary embolism protocol. MIP Images are created on CT scanner and reviewed. FINDINGS: LUNGS: Moderate to advanced underlying emphysematous change is redemonstrated. Mild to moderate bibas ilar linear scarring and/or atelectasis again seen. No new suspicious focal consolidation. No suspici ous nodules or masses. No pleural effusion or pneumothorax seen bilaterally. MEDIASTINUM: There is satisfactory enhancement of the pulmonary artery and its branches, there is no CT evidence for pulmonary embolism. Enlarged pulmonary arteries consistent with underlying pulmonary artery hypertension redemonstrated. Satisfactory enhancement of the aorta without aneurysm or dissect ion. Prominent bilateral hilar lymph nodes. No greater than 1 cm mediastinal lymph nodes. No cardiom egaly or pericardial effusion is seen. OTHER: There is thin walled 4.5 cm cyst in the left hepatic lobe on current study redemonstrated. Und erlying scoliosis redemonstrated. Cholecystectomy clips are redemonstrated. IMPRESSION: No CT evidence for acute pulmonary embolism. Moderate to advanced emphysematous change wi thout new suspicious acute pulmonary process.
[2021-11-07 14:02] VITALS: PULSE 72
--- NOTE | 2021-11-07 14:20 | US ---
EXAMINATION TYPE: US venous doppler duplex LE RT DATE OF EXAM: 11/07/2021 1:50 PM COMPARISON: NONE CLINICAL HISTORY: swelling. post op SIDE PERFORMED: Right TECHNIQUE: The lower extremity deep venous system is examined utilizing real time linear array sonog miriam with graded compression, doppler sonography and color-flow sonography. VESSELS IMAGED: Common Femoral Vein Deep Femoral Vein Greater Saphenous Vein * Femoral Vein Popliteal Vein Small Saphenous Vein * Proximal Calf Veins (* superficial vessels) Right common femoral, superficial femoral, popliteal veins all compress normally and show no abnormal luminal echoes, venous waveforms are normal. Right Leg: Negative for DVT IMPRESSION: No evident deep venous arthrosis within the right lower extremity from the level the kne e centrally
== END 2021-11-07 15:46 | disposition home or self-care (01) ==
LOC: EC 10:27
DX: J44.1 Chronic obstructive pulmonary disease with (acute) exacerbation (principal); E78.5 Hyperlipidemia, unspecified; R06.02 Shortness of breath; I10 Essential (primary) hypertension; M19.90 Unspecified osteoarthritis, unspecified site; Z79.51 Long term (current) use of inhaled steroids; Z79.899 Other long term (current) drug therapy; I25.2 Old myocardial infarction; Z87.891 Personal history of nicotine dependence; Z72.89 Other problems related to lifestyle; Z20.822 Contact with and (suspected) exposure to COVID-19; Z88.5 Allergy status to narcotic agent; Z88.8 Allergy status to other drugs, medicaments and biological substances; Z99.81 Dependence on supplemental oxygen
CPT/HCPCS: 99285 ×2; 36415; 93005; 80053; 83605; 84484; 85025; 85610; 85730; 87502; 87635; 93971; 71275; Q9967

== ENCOUNTER → 2021-11-28 | Outpatient (CLI) | payer MEDICARE, BC ==
[2021-11-28 22:40] LABS: Basophils # (A) 0.04 X 10*3/uL (0.00-0.10); Basophils % (A) 0.4 %; Eosinophils # (A) 0.18 X 10*3/uL (0.04-0.35); HCT 41.3 % (37.2-46.3); HGB 12.8 g/dL (12.0-15.0); Immature Grans, Automated 0.2 %; Lymphocytes # (A) 1.46 X 10*3/uL (0.90-5.00); Lymphocytes % (A) 16.3 %; MCH 29.8 pg (27.0-32.0); MCV 96.3 fL (80.0-97.0); Mean Platelet Volume 10.6 fL (9.5-12.2); Monocytes # (A) 0.65 X 10*3/uL (0.20-1.00); Monocytes % (A) 7.3 %; NRBC Per 100 WBC 0 /100 WBCS (0.0-0.0); Neutrophils % (A) 73.8 %; Platelet Count 359 X 10*3/uL (140-440); RBC 4.29 X 10*6/uL (4.10-5.20); RDW 14.5 % (11.5-14.5); WBC 8.95 X 10*3/uL (4.50-10.00)
[2021-11-28 23:30] LABS: Erythrocyte Sedimentation Rate 6 mm/Hr (0-30)
== END | disposition home or self-care (01) ==
LOC: LABWHC1 14:17
PROVIDERS: ATTEND Orthopaedic Surgery
DX: M25.561 Pain in right knee (principal)
CPT/HCPCS: 36415; 85025; 85652; 86140

== ENCOUNTER 2021-12-08 03:10 | Emergency (ER) | payer MEDICARE, BC ==
[2021-12-08 03:18] VITALS: RESP 18; TEMP 98
[2021-12-08 04:44] LABS: Basophils % (A) 1 %; Eosinophils # (A) 0.3 k/uL (0-0.7); Eosinophils % (A) 5 %; HCT 38.5 % (34.0-46.0); HGB 12.4 gm/dL (11.4-16.0); Lymphocytes # (A) 1.2 k/uL (1.0-4.8); Lymphocytes % (A) 21 %; MCHC 32.3 g/dL (31.0-37.0); MCV 95.9 fL (80.0-100.0); Mean Platelet Volume 7.8; Monocytes # (A) 0.3 k/uL (0-1.0); Monocytes % (A) 5 %; Neutrophils # (A) 3.8 k/uL (1.3-7.7); Neutrophils % (A) 67 %; Platelet Count 390 k/uL (150-450); RBC 4.01 m/uL (3.80-5.40); RDW 13.5 % (11.5-15.5); WBC 5.7 k/uL (3.8-10.6)
[2021-12-08] MEDS ORDERED: ACETAMINOPHEN TAB 325 MG TAB PO STA (06:21)
[2021-12-08] MEDS ORDERED: IBUPROFEN 600 MG TAB PO STA (06:21)
--- NOTE | 2021-12-08 07:38 | US ---
EXAMINATION TYPE: US venous doppler duplex LE RT DATE OF EXAM: 12/08/2021 6:22 AM COMPARISON: US CLINICAL HISTORY: pain, possible DVT. Pain s/p right total knee in October SIDE PERFORMED: Right TECHNIQUE: The lower extremity deep venous system is examined utilizing real time linear array sonog miriam with graded compression, doppler sonography and color-flow sonography. VESSELS IMAGED: Common Femoral Vein Deep Femoral Vein Greater Saphenous Vein * Femoral Vein Popliteal Vein Small Saphenous Vein * Proximal Calf Veins (* superficial vessels) Right Leg: Negative for DVT IMPRESSION: 1. Right lower extremity ultrasound negative for deep venous thrombosis.
--- NOTE | 2021-12-08 07:40 | ED ---
Lower Extremity Injury HPI - General Source: patient, EMS Mode of arrival: EMS Limitations: no limitations - History of Present Illness MD Complaint: knee injury -: days(s) Injury: Knee: Right Place: home Severity: moderate Improves With: nothing Worsens With: movement Associated Symptoms: swelling <Ezekiel Borden - Last Filed: 12/08/21 07:36> <DarshanLinn Hunter - Last Filed: 12/08/21 08:35> - General Chief Complaint: Extremity Injury, Lower Stated Complaint: Leg Pain Time Seen by Provider: 12/08/21 03:35 - History of Present Illness Initial Comments: is an 86-year-old woman who presents with complaint of having right knee pain. The patient states she has been having episodes of pain going back weeks now, she did have knee replacement surgery by Dr. Mobley, and states that she has flareups of pain since that time. The patient states that Dr. Mobley usually deals with these but that he was not available this weekend. She has not noted any fever or chills. She is not having any chest pain, dyspnea, cough or hemoptysis, palpitations or lightheadedness. She is not having new trauma. No weakness or numbness of the extremity. She has been able to ambulate (Ezekiel Borden) - Related Data Home Medications Medication Instructions Recorded Confirmed Losartan Potassium 100 mg PO HS@209910/30/14 11/07/21 Albuterol Inhaler [Ventolin Hfa 2 puff INHALATION RT-QID PRN 03/17/21 11/07/21 Inhaler] Metoprolol Tartrate [Lopressor] 50 mg PO DAILY@0803/17/21 11/07/21 Fluticasone Propion/Salmeterol 1 puff INHALATION RT-BID PRN 10/20/21 11/07/21 [Advair 500-50 Diskus] Mirabegron [Myrbetriq] 25 mg PO DAILY@79910/20/21 11/07/21 Moisture Eye Drops 1 drop BOTH EYES TID PRN 10/20/21 11/07/21 Rosuvastatin [Crestor] 10 mg PO HS@2100 10/20/21 11/07/21 Sodium Chloride [Saline Nasal 1 spray EA NOSTRIL DAILY@79910/20/21 11/07/21 [place]] Tiotropium 18 Mcg/Puff [Spiriva] 1 puff INHALATION RT-DAILY@0800 10/20/21 11/07/21 Acetaminophen [Acetaminophen ER] 650 mg PO Q4H PRN 11/07/21 11/07/21 Albuterol Nebulized [Ventolin 2.5 mg INHALATION RT-QID 11/07/21 11/07/21 Nebulized] Apixaban [Eliquis] 2.5 mg PO BID@0800,1700 11/07/21 11/07/21 Docusate [Colace] 100 mg PO BID@0800,1700 11/07/21 11/07/21 Docusate [Colace] 200 mg PO HS@2100 11/07/21 11/07/21 Ensure Enlive 120 ml PO TID@0800,1200,1700 11/07/21 11/07/21 Magnesium Hydroxide [Milk of 7,200 mg PO DAILY PRN 11/07/21 11/07/21 Magnesia Concentrate] Na Phos,M-B/Na Phos,Di-Ba [Fleet 133 ml RECTAL DAILY PRN 11/07/21 11/07/21 Adult] Sennosides-Docusate Sodium 2 tab PO HS@209911/07/21 11/07/21 [Senokot-S] bisacodyL [Dulcolax] 10 mg RECTAL DAILY PRN 11/07/21 11/07/21 polyethylene glycoL 3350 [Miralax] 17 gm PO DAILY@0800 11/07/21 11/07/21 Previous Rx's Medication Instructions Recorded traMADol HCl [Ultram] 50 mg PO Q6H PRN #32 tab 10/22/21 Azithromycin [Zithromax Z-pack (6 250 mg PO DIRECTED #6 tab 11/07/21 tabs)] methylPREDNISolone Dose Pack 24 mg PO DAILY #1 tab 11/07/21 [Medrol Dose Pack] Allergies Allergy/AdvReac Type Severity Reaction Status Date / Time hydrocodone bitartrate AdvReac states Verified 11/07/21 11:50 [From Vicodin] "doesn't make me feel good" prednisone AdvReac Hallucinati Verified 11/07/21 11:50 ons Review of Systems ROS Other: All systems not noted in ROS Statement are negative. Constitutional: Denies: fever, chills Respiratory: Denies: cough, dyspnea, hemoptysis Cardiovascular: Denies: chest pain, palpitations, edema, syncope Gastrointestinal: Denies: abdominal pain Musculoskeletal: Reports: joint swelling, arthralgia. Denies: back pain Skin: Denies: rash Neurological: Denies: headache, weakness, numbness <Ezekiel Borden - Last Filed: 12/08/21 07:36> ROS Other: All systems not noted in ROS Statement are negative. <Linn Sexton Hunter - Last Filed: 12/08/21 08:35> ROS Statement: Those systems with pertinent positive or pertinent negative responses have been documented in the HPI. 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 Last Myocardial Infarction Date:: 40 years ago History of Any Multi-Drug Resistant Organisms: None Reported Past Surgical History: Cholecystectomy, Hysterectomy, Orthopedic Surgery Additional Past Surgical History / Comment(s): KNEE arthroscopy, COLONOSCOPY- LARGE POLYP REMOVED, EGD, cataracts, Right TKA (10/21/21) Past Anesthesia/Blood Transfusion Reactions: No Reported Reaction Additional Past Anesthesia/Blood Transfusion Reaction / Comment(s): No hx blood transfusion. Past Psychological History: No Psychological Hx Reported Smoking Status: Former smoker Past Alcohol Use History: Occasional Past Drug Use History: None Reported - Past Family History Sister(s) Family Medical History: Cancer Additional Family Medical History / Comment(s): #1 sister colon cancer, # 2 sister lung cancer. Father Family Medical History: Cancer Additional Family Medical History / Comment(s): Prostate cancer. Mother Family Medical History: Asthma Additional Family Medical History / Comment(s): Heart problems. <Ezekiel Borden - Last Filed: 12/08/21 07:36> General Exam General appearance: alert, in no apparent distress Head exam: Present: atraumatic, normocephalic Eye exam: Present: normal appearance. Absent: scleral icterus, conjunctival injection ENT exam: Present: normal oropharynx Neck exam: Present: normal inspection Respiratory exam: Present: normal lung sounds bilaterally. Absent: respiratory distress, wheezes, rales, rhonchi, stridor Cardiovascular Exam: Present: regular rate, normal rhythm, normal heart sounds. Absent: systolic murmur, diastolic murmur, rubs, gallop GI/Abdominal exam: Present: soft. Absent: distended, tenderness, guarding, rebound, rigid, mass Right Hip exam: Present: full ROM. Absent: tenderness, swelling Upper Leg exam: Present: full ROM. Absent: tenderness, swelling Knee exam: Present: full ROM, tenderness, swelling. Absent: abrasion, laceration, ecchymosis, deformity, crepitus, dislocation, erythema Lower Leg exam: Present: full ROM, swelling. Absent: tenderness, abrasion, laceration, ecchymosis, deformity Ankle exam: Present: full ROM. Absent: tenderness, swelling, abrasion Foot/Toe exam: Present: full ROM. Absent: tenderness, swelling, abrasion, laceration Neurovascular tendon exam: Present: no vascular compromise. Absent: pulse deficit, abnormal cap refill, motor deficit, sensory deficit, tendon deficit Gait: antalgic Skin exam: Present: warm, dry, intact, normal color. Absent: rash <Ezekiel Borden - Last Filed: 12/08/21 07:36> Course Vital Signs 12/08/21 03:12 Temperature 98 F Pulse Rate 100 Respiratory 18 Rate Blood Pressure 168/72 Medical Decision Making - Lab Data Result diagrams: 12/08/21 04:32 <Ezekiel Borden - Last Filed: 12/08/21 07:36> - Lab Data Result diagrams: 12/08/21 04:32 <Linn Sexton - Last Filed: 12/08/21 08:35> - Medical Decision Making Patient was signed out to me by Dr. Price. I did review the patient's laboratory studies. Ultrasound was performed which demonstrates no signs of DVT. Results are discussed with the patient. Recommended that the patient alternate taking Motrin and Tylenol every 4 hours. I did offer something sharp for pain control however patient refused due to constipation side effects. She does have a follow-up appointment with the orthopedic office this week. Instructed to return for any new or worsening symptoms. Patient was discharged in stable condition (Linn Sexton) - Lab Data Lab Results 12/08/21 12/08/21 12/08/21 Range/Units 04:32 04:32 04:32 WBC 5.7 (3.8-10.6) k/uL RBC 4.01 (3.80-5.40) m/uL Hgb 12.4 (11.4-16.0) gm/dL Hct 38.5 (34.0-46.0) % MCV 95.9 (80.0-100.0) fL MCH 31.0 (25.0-35.0) pg MCHC 32.3 (31.0-37.0) g/dL RDW 13.5 (11.5-15.5) % Plt Count 390 (150-450) k/uL MPV 7.8 Neutrophils % 67 % Lymphocytes % 21 % Monocytes % 5 % Eosinophils % 5 % Basophils % 1 % Neutrophils # 3.8 (1.3-7.7) k/uL Lymphocytes # 1.2 (1.0-4.8) k/uL Monocytes # 0.3 (0-1.0) k/uL Eosinophils # 0.3 (0-0.7) k/uL Basophils # 0.0 (0-0.2) k/uL D-Dimer 2.77 H (<0.60) mg/L FEU C-Reactive Protein <0.5 (<1.0) mg/dL Disposition <Ezekiel Borden - Last Filed: 12/08/21 07:36> Is patient prescribed a controlled substance at d/c from ED?: No Time of Disposition: 07:57 <Linn Sexton - Last Filed: 12/08/21 08:35> Clinical Impression: Knee pain Disposition: HOME SELF-CARE Condition: Stable Instructions (If sedation given, give patient instructions): Knee Pain (ED) Additional Instructions: Please follow-up with orthopedic surgeon this week. Alternate taking 2 tablets of tylenol with 3 tablets of Motrin (600 mg) every 4 hours. Return for any new or worsening symptoms Referrals: Pepe Shine MD [Primary Care Provider] - 1-2 days Naman Joseph MD [STAFF PHYSICIAN] - 1-2 days
[2021-12-08 09:40] VITALS: BP 132/78; PULSE 90
== END 2021-12-08 09:39 | disposition home or self-care (01) ==
LOC: EC 03:10
DX: M25.561 Pain in right knee (principal); E78.5 Hyperlipidemia, unspecified; I10 Essential (primary) hypertension; K21.9 Gastro-esophageal reflux disease without esophagitis; Z79.83 Long term (current) use of bisphosphonates; Z87.891 Personal history of nicotine dependence; Z88.5 Allergy status to narcotic agent; Z88.8 Allergy status to other drugs, medicaments and biological substances
CPT/HCPCS: 36415; 85025; 85379; 86140

== ENCOUNTER → 2022-01-23 | Outpatient (CLI) | payer MEDICARE, BC ==
--- NOTE | 2022-01-23 16:44 | XR ---
EXAMINATION TYPE: XR lumbar spine 2 or 3V DATE OF EXAM: 01/23/2022 COMPARISON: None HISTORY: Pain TECHNIQUE: Standing AP and lateral views of the lumbar spine were obtained. An additional sacral base view was obtained. FINDINGS: There is a scoliosis with the convexity to the left centered at L3. Loss of disc height is present throughout the lumbar spine. There is straightening of the lumbar spin e in the sagittal plane. No spondylolisthesis is evident. Some spondylosis is present. IMPRESSION: 1. Scoliosis with spondylosis and degenerative disc changes.
== END | disposition home or self-care (01) ==
LOC: RADXRMAIN 13:29
PROVIDERS: ATTEND Internal Medicine
DX: M47.816 Spondylosis without myelopathy or radiculopathy, lumbar region (principal); M51.26 Other intervertebral disc displacement, lumbar region
CPT/HCPCS: 72100

== ENCOUNTER → 2022-02-11 | Outpatient (CLI) | payer MEDICARE, BC ==
--- NOTE | 2022-02-11 09:03 | US ---
EXAMINATION TYPE: US abdomen complete DATE OF EXAM: 02/11/2022 COMPARISON: CT & US 2018 CLINICAL HISTORY: R74.8 ELEVATED LIVER ENZYMES. Intermittent abdomen pain, diarrhea, history of chol ecystectomy TECHNIQUE: Multiple sonographic images of the abdomen are obtained. FINDINGS: EXAM MEASUREMENTS: Liver Length: 13.2 cm CBD: 0.4 cm Spleen: n/a Right Kidney: 9.3 x 3.8 x 4.7 cm Left Kidney: 9.3 x 5.0 x 4.0 cm Pancreas: visualized portions wnl, limited by overlying midline bowel gas Liver: 4.9 x 5.2 x 5.7cm cyst seen left lobe with smaller 1.1cm cystic area anterior left lobe Gallbladder: surgically absent Evidence for sonographic Munguia's sign: no CBD: visualized portions wnl, limited by overlying bowel gas Spleen: obscured by overlying bowel gas Right Kidney: wnl Left Kidney: 2.4cm cystic area mid pole Upper IVC: wnl Abd Aorta: wnl The liver is homogenous. The intrahepatic portion of the IVC and proximal abdominal aorta are within normal limits. Common bile duct is unremarkable. The visualized portions of the pancreas are homog enous. The spleen is unremarkable. Kidneys are symmetric and free of hydronephrosis. No solid viktor l lesions are seen. IMPRESSION: 1. Hepatic cysts noted. 2. Simple cyst left kidney.
== END | disposition home or self-care (01) ==
LOC: RADUSWWP 08:21
PROVIDERS: ATTEND Internal Medicine
DX: K76.89 Other specified diseases of liver (principal); N28.1 Cyst of kidney, acquired; R74.8 Abnormal levels of other serum enzymes
CPT/HCPCS: 76700

== ENCOUNTER 2022-03-14 11:50 | Emergency (ER) | payer MEDICARE ==
[2022-03-14 12:03] VITALS: TEMP 98.5
[2022-03-14] MEDS ORDERED: MAGNESIUM SULFATE-D5W PMX 1 GM in DEXTROSE/WATER 1 100ML.BAG IVPB ONE (12:28)
[2022-03-14] MEDS ORDERED: methylPREDNISolone SOD SUCCI 125 MG/2 ML VIAL IV STA (12:28)
--- NOTE | 2022-03-14 12:59 | XR ---
EXAMINATION TYPE: XR chest 2V DATE OF EXAM: 03/14/2022 12:52 PM COMPARISON: Chest radiographs from 03/24/2021 TECHNIQUE: XR chest 2V Frontal and lateral views of the chest. CLINICAL INDICATION:Female, 86 years old with history of difficulty breathing; FINDINGS: Lungs/Pleura: There is no evidence of pleural effusion, focal consolidation, or pneumothorax. Pulmonary vascularity: Unremarkable. Heart/mediastinum: Cardiomediastinal silhouette is unremarkable. Musculoskeletal: No acute osseous pathology. IMPRESSION: No acute cardiopulmonary disease/process.
[2022-03-14 13:01] LABS: Basophils # (A) 0.1 k/uL (0-0.2); Basophils % (A) 1 %; Eosinophils # (A) 0.6 k/uL (0-0.7); Eosinophils % (A) 6 %; HCT 45.3 % (34.0-46.0); HGB 14.7 gm/dL (11.4-16.0); Lymphocytes # (A) 2.3 k/uL (1.0-4.8); Lymphocytes % (A) 25 %; MCH 29.9 pg (25.0-35.0); MCHC 32.5 g/dL (31.0-37.0); MCV 91.9 fL (80.0-100.0); Mean Platelet Volume 8.3; Monocytes # (A) 0.4 k/uL (0-1.0); Monocytes % (A) 4 %; Neutrophils # (A) 5.7 k/uL (1.3-7.7); Neutrophils % (A) 63 %; Platelet Count 328 k/uL (150-450); RBC 4.93 m/uL (3.80-5.40); RDW 13.2 % (11.5-15.5); WBC 9.1 k/uL (3.8-10.6)
[2022-03-14] MEDS ORDERED: IPRATROPIUM-ALBUTEROL 3 ML NEB INHALATION STA (13:12)
--- NOTE | 2022-03-14 13:12 | ED ---
SOB HPI - General Chief Complaint: Shortness of Breath Stated Complaint: SOB Time Seen by Provider: 03/14/22 12:05 Source: patient Mode of arrival: ambulatory Limitations: no limitations - History of Present Illness Initial Comments: 86-year-old female with past history of COPD, asthma presents to the emergency department with shortness of breath. States that she has been more short of breath for the past 3 days. Admits to a productive cough with yellow sputum. Denies fevers or chills. No sick contacts. Denies any chest pain. No history of cardiac disease. Does have a history of asthma and takes prednisone 5 mg every day. She follows with Dr. Gilbert. She has been using her inhalers without relief of her shortness of breath. No nausea, vomiting, diarrhea, abdominal pain. No other alleviating, precipitating or modifying factors - Related Data Home Medications Medication Instructions Recorded Confirmed Losartan Potassium 100 mg PO HS@209910/30/14 11/07/21 Albuterol Inhaler [Ventolin Hfa 2 puff INHALATION RT-QID PRN 03/17/21 11/07/21 Inhaler] Metoprolol Tartrate [Lopressor] 50 mg PO DAILY@0800 03/17/21 11/07/21 Fluticasone Propion/Salmeterol 1 puff INHALATION RT-BID PRN 10/20/21 11/07/21 [Advair 500-50 Diskus] Mirabegron [Myrbetriq] 25 mg PO DAILY@0800 10/20/21 11/07/21 Moisture Eye Drops 1 drop BOTH EYES TID PRN 10/20/21 11/07/21 Rosuvastatin [Crestor] 10 mg PO HS@209910/20/21 11/07/21 Sodium Chloride [Saline Nasal 1 spray EA NOSTRIL DAILY@0800 10/20/21 11/07/21 [place]] Tiotropium 18 Mcg/Puff [Spiriva] 1 puff INHALATION RT-DAILY@0800 10/20/21 11/07/21 Acetaminophen [Acetaminophen ER] 650 mg PO Q4H PRN 11/07/21 11/07/21 Albuterol Nebulized [Ventolin 2.5 mg INHALATION RT-QID 11/07/21 11/07/21 Nebulized] Apixaban [Eliquis] 2.5 mg PO BID@0800,1700 05/27/22 05/27/22 Docusate [Colace] 100 mg PO BID@0800,1700 11/07/21 11/07/21 Docusate [Colace] 200 mg PO HS@2100 11/07/21 11/07/21 Ensure Enlive 120 ml PO TID@0800,1200,1700 11/07/21 11/07/21 Magnesium Hydroxide [Milk of 7,200 mg PO DAILY PRN 11/07/21 11/07/21 Magnesia Concentrate] Na Phos,M-B/Na Phos,Di-Ba [Fleet 133 ml RECTAL DAILY PRN 11/07/21 11/07/21 Adult] Sennosides-Docusate Sodium 2 tab PO HS@209911/07/21 11/07/21 [Senokot-S] bisacodyL [Dulcolax] 10 mg RECTAL DAILY PRN 11/07/21 11/07/21 polyethylene glycoL 3350 [Miralax] 17 gm PO DAILY@0800 11/07/21 11/07/21 Previous Rx's Medication Instructions Recorded traMADol HCl [Ultram] 50 mg PO Q6H PRN #32 tab 10/22/21 Azithromycin [Zithromax Z-pack (6 250 mg PO DIRECTED #6 tab 11/07/21 tabs)] methylPREDNISolone Dose Pack 24 mg PO DAILY #1 tab 11/07/21 [Medrol Dose Pack] Doxycycline Hyclate 100 mg PO BID #20 tab 03/14/22 Ipratropium Nebulized [Atrovent 0.5 mg INHALATION Q4HR #300 ml 03/14/22 Nebulized 0.2 MG/ML] predniSONE [Deltasone] 20 mg PO BID #10 tab 03/14/22 Allergies Allergy/AdvReac Type Severity Reaction Status Date / Time hydrocodone bitartrate AdvReac states Verified 03/14/22 12:03 [From Vicodin] "doesn't make me feel good" prednisone AdvReac Hallucinati Verified 03/14/22 12:03 ons Review of Systems ROS Statement: Those systems with pertinent positive or pertinent negative responses have been documented in the HPI. ROS Other: All systems not noted in ROS Statement are negative. 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 Last Myocardial Infarction Date:: 40 years ago History of Any Multi-Drug Resistant Organisms: None Reported Past Surgical History: Cholecystectomy, Hysterectomy, Orthopedic Surgery Additional Past Surgical History / Comment(s): KNEE arthroscopy, COLONOSCOPY- LARGE POLYP REMOVED, EGD, cataracts, Right TKA (10/21/21) Past Anesthesia/Blood Transfusion Reactions: No Reported Reaction Additional Past Anesthesia/Blood Transfusion Reaction / Comment(s): No hx blood transfusion. Past Psychological History: No Psychological Hx Reported Smoking Status: Former smoker Past Alcohol Use History: Occasional Past Drug Use History: None Reported - Past Family History Sister(s) Family Medical History: Cancer Additional Family Medical History / Comment(s): #1 sister colon cancer, # 2 sist er lung cancer. Father Family Medical History: Cancer Additional Family Medical History / Comment(s): Prostate cancer. Mother Family Medical History: Asthma Additional Family Medical History / Comment(s): Heart problems. General Exam Limitations: no limitations General appearance: alert, in no apparent distress Head exam: Present: atraumatic, normocephalic, normal inspection Eye exam: Present: normal appearance, PERRL, EOMI. Absent: scleral icterus, conjunctival injection, periorbital swelling ENT exam: Present: normal exam, mucous membranes moist Neck exam: Present: normal inspection. Absent: tenderness, meningismus, lymphadenopathy Respiratory exam: Present: wheezes, accessory muscle use, decreased breath sounds, other (tachypnia. two word conversational dyspnea). Absent: respiratory distress, rales, rhonchi, stridor Cardiovascular Exam: Present: normal rhythm, tachycardia, normal heart sounds. Absent: systolic murmur, diastolic murmur, rubs, gallop, clicks GI/Abdominal exam: Present: soft, normal bowel sounds. Absent: distended, tenderness, guarding, rebound, rigid Extremities exam: Present: normal inspection, full ROM, normal capillary refill. Absent: tenderness, pedal edema, joint swelling, calf tenderness Back exam: Present: normal inspection Neurological exam: Present: alert, oriented X3, CN II-XII intact Psychiatric exam: Present: normal affect, normal mood Skin exam: Present: warm, dry, intact, normal color. Absent: rash Course Vital Signs 03/14/22 03/14/22 03/14/22 12:01 12:35 13:17 Temperature 98.5 F Pulse Rate 116 H 68 90 Respiratory 20 22 18 Rate Blood Pressure 123/73 148/85 138/70 O2 Sat by Pulse 93 L 94 L 94 L Oximetry 03/14/22 03/14/22 03/14/22 13:22 13:27 13:43 Temperature Pulse Rate 90 90 Respiratory 22 Rate Blood Pressure O2 Sat by Pulse Oximetry 03/14/22 15:30 Temperature Pulse Rate 86 Respiratory 20 Rate Blood Pressure 138/68 O2 Sat by Pulse 99 Oximetry Medical Decision Making - Medical Decision Making Upon arrival patient was placed into room 4. Her history and physical exam is performed. Patient does have diffuse wheezing. IV is established. Patient given a DuoNeb breathing treatment, 125 mg of Solu-Medrol and a gram of magnesium. Laboratory studies are conducted and reviewed. Chest x-ray demonstrates no acute process. Patient is reevaluated and is resting much more comfortably at this time. She feels comfortable with discharge home. She will be placed on antibiotics as well as increase in the steroids for the next 5 days. I will also give her a prescription for ipratropium which she is to mix with her albuterol and use the breathing treatments every 4 hours. She should call and make an appointment with her primary care doctor. Return to the em ergency department for any new or worsening symptoms that she may require hospitalization. Patient was agreeable to this plan and was discharged home in stable condition - Lab Data Result diagrams: 03/14/22 12:33 03/14/22 12:33 Lab Results 03/14/22 03/14/22 03/14/22 Range/Units 12:33 12:33 12:33 WBC 9.1 (3.8-10.6) k/uL RBC 4.93 (3.80-5.40) m/uL Hgb 14.7 (11.4-16.0) gm/dL Hct 45.3 (34.0-46.0) % MCV 91.9 (80.0-100.0) fL MCH 29.9 (25.0-35.0) pg MCHC 32.5 (31.0-37.0) g/dL RDW 13.2 (11.5-15.5) % Plt Count 328 (150-450) k/uL MPV 8.3 Neutrophils % 63 % Lymphocytes % 25 % Monocytes % 4 % Eosinophils % 6 % Basophils % 1 % Neutrophils # 5.7 (1.3-7.7) k/uL Lymphocytes # 2.3 (1.0-4.8) k/uL Monocytes # 0.4 (0-1.0) k/uL Eosinophils # 0.6 (0-0.7) k/uL Basophils # 0.1 (0-0.2) k/uL PT 10.5 (9.0-12.0) sec INR 1.0 (<1.2) APTT 23.2 (22.0-30.0) sec Sodium 143 (137-145) mmol/L Potassium 3.7 (3.5-5.1) mmol/L Chloride 101 (98-107) mmol/L Carbon Dioxide 30 (22-30) mmol/L Anion Gap 12 mmol/L BUN 10 (7-17) mg/dL Creatinine 0.74 (0.52-1.04) mg/dL Est GFR (CKD-EPI)AfAm 87 (>60 ml/min/1.73 sqM) Est GFR (CKD-EPI)NonAf 75 (>60 ml/min/1.73 sqM) Glucose 92 (74-99) mg/dL Plasma Lactic Acid Jace (0.7-2.0) mmol/L Calcium 9.7 (8.4-10.2) mg/dL Total Bilirubin 0.4 (0.2-1.3) mg/dL AST 21 (14-36) U/L ALT 18 (4-34) U/L Alkaline Phosphatase 94 (38-126) U/L Troponin I (0.000-0.034) ng/mL NT-Pro-B Natriuret Pep pg/mL Total Protein 6.6 (6.3-8.2) g/dL Albumin 4.3 (3.5-5.0) g/dL Coronavirus (PCR) (Not Detectd) Influenza Type A RNA (Not Detectd) Influenza Type B (PCR) (Not Detectd) 03/14/22 03/14/22 03/14/22 Range/Units 12:33 12:33 12:33 WBC (3.8-10.6) k/uL RBC (3.80-5.40) m/uL Hgb (11.4-16.0) gm/dL Hct (34.0-46.0) % MCV (80.0-100.0) fL MCH (25.0-35.0) pg MCHC (31.0-37.0) g/dL RDW (11.5-15.5) % Plt Count (150-450) k/uL MPV Neutrophils % % Lymphocytes % % Monocytes % % Eosinophils % % Basophils % % Neutrophils # (1.3-7.7) k/uL Lymphocytes # (1.0-4.8) k/uL Monocytes # (0-1.0) k/uL Eosinophils # (0-0.7) k/uL Basophils # (0-0.2) k/uL PT (9.0-12.0) sec INR (<1.2) APTT (22.0-30.0) sec Sodium (137-145) mmol/L Potassium (3.5-5.1) mmol/L Chloride (98-107) mmol/L Carbon Dioxide (22-30) mmol/L Anion Gap mmol/L BUN (7-17) mg/dL Creatinine (0.52-1.04) mg/dL Est GFR (CKD-EPI)AfAm (>60 ml/min/1.73 sqM) Est GFR (CKD-EPI)NonAf (>60 ml/min/1.73 sqM) Glucose (74-99) mg/dL Plasma Lactic Acid Jace 2.0 (0.7-2.0) mmol/L Calcium (8.4-10.2) mg/dL Total Bilirubin (0.2-1.3) mg/dL AST (14-36) U/L ALT (4-34) U/L Alkaline Phosphatase (38-126) U/L Troponin I <0.012 (0.000-0.034) ng/mL NT-Pro-B Natriuret Pep 60 pg/mL Total Protein (6.3-8.2) g/dL Albumin (3.5-5.0) g/dL Coronavirus (PCR) (Not Detectd) Influenza Type A RNA (Not Detectd) Influenza Type B (PCR) (Not Detectd) 03/14/22 03/14/22 Range/Units 12:33 12:33 WBC (3.8-10.6) k/uL RBC (3.80-5.40) m/uL Hgb (11.4-16.0) gm/dL Hct (34.0-46.0) % MCV (80.0-100.0) fL MCH (25.0-35.0) pg MCHC (31.0-37.0) g/dL RDW (11.5-15.5) % Plt Count (150-450) k/uL MPV Neutrophils % % Lymphocytes % % Monocytes % % Eosinophils % % Basophils % % Neutrophils # (1.3-7.7) k/uL Lymphocytes # (1.0-4.8) k/uL Monocytes # (0-1.0) k/uL Eosinophils # (0-0.7) k/uL Basophils # (0-0.2) k/uL PT (9.0-12.0) sec INR (<1.2) APTT (22.0-30.0) sec Sodium (137-145) mmol/L Potassium (3.5-5.1) mmol/L Chloride (98-107) mmol/L Carbon Dioxide (22-30) mmol/L Anion Gap mmol/L BUN (7-17) mg/dL Creatinine (0.52-1.04) mg/dL Est GFR (CKD-EPI)AfAm (>60 ml/min/1.73 sqM) Est GFR (CKD-EPI)NonAf (>60 ml/min/1.73 sqM) Glucose (74-99) mg/dL Plasma Lactic Acid Jace (0.7-2.0) mmol/L Calcium (8.4-10.2) mg/dL Total Bilirubin (0.2-1.3) mg/dL AST (14-36) U/L ALT (4-34) U/L Alkaline Phosphatase (38-126) U/L Troponin I (0.000-0.034) ng/mL NT-Pro-B Natriuret Pep pg/mL Total Protein (6.3-8.2) g/dL Albumin (3.5-5.0) g/dL Coronavirus (PCR) Not Detected (Not Detectd) Influenza Type A RNA Not Detected (Not Detectd) Influenza Type B (PCR) Not Detected (Not Detectd) EKG demonstrates sinus tachycardia with a rate of 109. [place] interval 142. QRS 81. QTC 382. No acute ST segment elevations or depressions 03/14/22 14:10 Disposition Clinical Impression: COPD exacerbation, Tracheobronchitis Disposition: HOME SELF-CARE Condition: Stable Instructions (If sedation given, give patient instructions): COPD (Chronic Obstructive Pulmonary Disease) (ED) Additional Instructions: Please follow-up with your primary care doctor in 2-4 days. Take the steroids and antibiotics as directed. Use your nebulizer every 4 hours using the albuterol mixed with the ipatropium. Return for any new or worsening symptoms Prescriptions: Ipratropium Nebulized [Atrovent Nebulized 0.2 MG/ML] 0.5 mg INHALATION Q4HR #300 ml predniSONE [Deltasone] 20 mg PO BID #10 tab Doxycycline Hyclate 100 mg PO BID #20 tab Is patient prescribed a controlled substance at d/c from ED?: No Referrals: Pepe Shine MD [Primary Care Provider] - 1-2 days Time of Disposition: 15:00
[2022-03-14 13:18] LABS: Albumin 4.3 g/dL (3.5-5.0); Calcium 9.7 mg/dL (8.4-10.2); Potassium 3.7 mmol/L (3.5-5.1); Total Bilirubin 0.4 mg/dL (0.2-1.3); Total Protein 6.6 g/dL (6.3-8.2)
[2022-03-14 13:20] LABS: Partial Thromboplastin Time 23.2 sec (22.0-30.0); Prothrombin Time 10.5 sec (9.0-12.0)
[2022-03-14 15:32] VITALS: BP 138/68; PULSE 86; RESP 20
== END 2022-03-14 15:59 | disposition home or self-care (01) ==
LOC: EC 11:50
DX: J44.1 Chronic obstructive pulmonary disease with (acute) exacerbation (principal); J20.9 Acute bronchitis, unspecified; I10 Essential (primary) hypertension; E78.5 Hyperlipidemia, unspecified; Z87.891 Personal history of nicotine dependence; Z20.822 Contact with and (suspected) exposure to COVID-19
CPT/HCPCS: 96365; 96375; 36415; 94640; 93005; 83880; 80053; 83605; 84484; 85025; 85610; 85730; 87502; 87635; 71046; 99285; J2930; J3475

== ENCOUNTER 2022-05-14 01:37 | Inpatient (IN) | payer MEDICARE, BC ==
--- NOTE | 2022-05-14 03:01 | XR ---
EXAMINATION TYPE: XR chest 2V DATE OF EXAM: 05/14/2022 COMPARISON: 04/28/2022 HISTORY: Short of breath TECHNIQUE: FINDINGS: Heart size is normal. There is patchy infiltrate at both lung bases. No heart failure seen. There are no hilar masses. There are chest leads. Bony thorax is intact IMPRESSION: There is infiltrate and atelectasis at both lung bases. Normal heart. Lung abnormalities appear new compared to old exam.
[2022-05-14 03:22] LABS: Basophils # (A) 0.1 k/uL (0-0.2); Basophils % (A) 0 %; Eosinophils # (A) 0.1 k/uL (0-0.7); Eosinophils % (A) 1 %; HGB 14.1 gm/dL (11.4-16.0); Lymphocytes # (A) 0.9 k/uL (1.0-4.8); Lymphocytes % (A) 5 %; MCH 31.5 pg (25.0-35.0); MCHC 33.6 g/dL (31.0-37.0); MCV 93.7 fL (80.0-100.0); Mean Platelet Volume 8.3; Monocytes # (A) 0.5 k/uL (0-1.0); Monocytes % (A) 3 %; Neutrophils # (A) 16.1 k/uL (1.3-7.7); Neutrophils % (A) 90 %; Platelet Count 555 k/uL (150-450); RBC 4.49 m/uL (3.80-5.40); RDW 13.7 % (11.5-15.5); WBC 17.9 k/uL (3.8-10.6)
[2022-05-14 03:34] LABS: ALT 20 U/L (4-34); AST 30 U/L (14-36); African American GFR (CKD) >90 (>60 ml/min/1.73 sqM); Albumin 3.9 g/dL (3.5-5.0); Alkaline Phosphatase 92 U/L (38-126); Anion Gap 8 mmol/L; Blood Urea Nitrogen 10 mg/dL (7-17); Calcium 8.8 mg/dL (8.4-10.2); Carbon Dioxide 27 mmol/L (22-30); Chloride 100 mmol/L (98-107); Glucose 102 mg/dL (74-99); Magnesium 1.9 mg/dL (1.6-2.3); Non-African American GFR(CKD) 80 (>60 ml/min/1.73 sqM); Sodium 135 mmol/L (137-145); Total Bilirubin 0.9 mg/dL (0.2-1.3); Total Protein 6.8 g/dL (6.3-8.2)
[2022-05-14 03:35] LABS: Potassium 4.1 mmol/L (3.5-5.1)
[2022-05-14] MEDS ORDERED: ACETAMINOPHEN TAB 500 MG TAB PO STA (03:36)
[2022-05-14] MEDS ORDERED: SODIUM CHLORIDE 0.9% 500 ML 500 ML IV ONE (03:37)
[2022-05-14] MEDS: SODIUM CHLORIDE 0.9% 1,000 ML IV SCH ×4 (03:44→18:57)
[2022-05-14 04:20] LABS: INR 1.1 (<1.2); Partial Thromboplastin Time 23.7 sec (22.0-30.0); Prothrombin Time 11.7 sec (9.0-12.0)
--- NOTE | 2022-05-14 04:34 | ED ---
SOB HPI - General Chief Complaint: Shortness of Breath Stated Complaint: SOB Time Seen by Provider: 05/14/22 02:00 Source: EMS Mode of arrival: EMS Limitations: no limitations - History of Present Illness Initial Comments: 86-year-old female with past history of asthma, COPD, hypertension, hyperlipidemia who presents to the emergency department from her extended care facility. Patient has a known history of COPD. She wears 2 L of oxygen at night. Does not require oxygen during the day. She presents with shortness of breath, fever and a productive cough. Denies any sick contacts with similar symptoms. Patient was diagnosed with Covid earlier in April however reported improvement in her symptoms. She admits to chest pain when coughing. She has had generalized weakness and has had difficulty caring for herself. She is normally independent. She has been using her breathing treatments with improvement in her symptoms. EMS provided the patient with 1 DuoNeb treatment while being transferred into the hospital. She does take chronic steroids at home. Follows with Dr. Jarquin. No other alleviating, precipitating or modifying factors - Related Data Home Medications Medication Instructions Recorded Confirmed Losartan Potassium 100 mg PO DAILY 10/30/14 05/14/22 Albuterol Inhaler [Ventolin Hfa 2 puff INHALATION RT-Q4H PRN 03/17/21 05/14/22 Inhaler] Fluticasone Propion/Salmeterol 1 puff INHALATION RT-BID PRN 10/20/21 05/14/22 [Advair 500-50 Diskus] Rosuvastatin [Crestor] 10 mg PO DAILY 10/20/21 05/14/22 Tiotropium 18 Mcg/Puff [Spiriva] 1 puff INHALATION RT-DAILY 10/20/21 05/14/22 Albuterol Nebulized [Ventolin 2.5 mg INHALATION RT-QID 11/07/21 05/14/22 Nebulized] Fluticasone/Umeclidin/Vilanter 1 puff INHALATION RT-DAILY 05/14/22 05/14/22 [Trelegy Ellipta 100-62.5-25] Ipratropium-Albuterol Nebulize 3 ml INHALATION RT-Q4H 05/14/22 05/14/22 [Duoneb 0.5 mg-3 mg/3 ml Soln] Metoprolol Succinate (ER) [Toprol 25 mg PO DAILY 05/14/22 05/14/22 Xl] Mirtazapine 7.5 mg PO DIRECTED 05/14/22 05/14/22 Montelukast [Singulair] 10 mg PO DAILY 05/14/22 05/14/22 guaiFENesin-Coden 100-10MG/5ML 5 ml PO Q6H PRN 05/14/22 05/14/22 [Robitussin AC] predniSONE 5 mg PO DAILY 05/14/22 05/14/22 Allergies Allergy/AdvReac Type Severity Reaction Status Date / Time hydrocodone bitartrate AdvReac states Verified 03/14/22 12:03 [From Vicodin] "doesn't make me feel good" prednisone AdvReac Hallucinati Verified 03/14/22 12:03 ons Review of Systems ROS Statement: Those systems with pertinent positive or pertinent negative responses have been documented in the HPI. ROS Other: All systems not noted in ROS Statement are negative. 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 Last Myocardial Infarction Date:: 40 years ago History of Any Multi-Drug Resistant Organisms: None Reported Past Surgical History: Cholecystectomy, Hysterectomy, Orthopedic Surgery Additional Past Surgical History / Comment(s): KNEE arthroscopy, COLONOSCOPY- LARGE POLYP REMOVED, EGD, cataracts, Right TKA (10/21/21) Past Anesthesia/Blood Transfusion Reactions: No Reported Reaction Additional Past Anesthesia/Blood Transfusion Reaction / Comment(s): No hx blood transfusion. Past Psychological History: No Psychological Hx Reported Smoking Status: Former smoker Past Alcohol Use History: Occasional Past Drug Use History: None Reported - Past Family History Sister(s) Family Medical History: Cancer Additional Family Medical History / Comment(s): #1 sister colon cancer, # 2 sister lung cancer. Father Family Medical History: Cancer Additional Family Medical History / Comment(s): Prostate cancer. Mother Family Medical History: Asthma Additional Family Medical History / Comment(s): Heart problems. General Exam Limitations: no limitations General appearance: alert, in no apparent distress Head exam: Present: atraumatic, normocephalic, normal inspection Eye exam: Present: normal appearance, PERRL, EOMI. Absent: scleral icterus, conjunctival injection, periorbital swelling ENT exam: Present: normal exam, mucous membranes moist Neck exam: Present: normal inspection. Absent: tenderness, meningismus, lymphadenopathy Respiratory exam: Present: wheezes, accessory muscle use, decreased breath sounds. Absent: respiratory distress, rales, rhonchi, stridor Cardiovascular Exam: Present: normal rhythm, tachycardia, normal heart sounds. Absent: systolic murmur, diastolic murmur, rubs, gallop, clicks GI/Abdominal exam: Present: soft, normal bowel sounds. Absent: distended, tenderness, guarding, rebound, rigid Extremities exam: Present: normal inspection, full ROM, normal capillary refill. Absent: tenderness, pedal edema, joint swelling, calf tenderness Back exam: Present: normal inspection Neurological exam: Present: alert, oriented X3, CN II-XII intact Psychiatric exam: Present: normal affect, normal mood Skin exam: Present: warm, dry, intact, normal color. Absent: rash Course Vital Signs 05/14/22 05/14/22 05/14/22 01:45 01:48 01:54 Temperature 100.1 F H 100.1 F H Pulse Rate 118 H 118 H 120 H Respiratory 18 16 18 Rate Blood Pressure 159/81 O2 Sat by Pulse 92 L 94 L Oximetry 05/14/22 05/14/22 03:34 04:52 Temperature 98.8 F Pulse Rate 117 H 112 H Respiratory 18 18 Rate Blood Pressure 152/70 138/74 O2 Sat by Pulse 96 97 Oximetry Medical Decision Making - Medical Decision Making Arrival patient is placed into room 17. A thorough history and physical exam was performed. Patient does arrive with a low-grade temp. Pulse is elevated at 118. Pulse ox is 92. She is placed on continuous pulse ox and cardiac monitoring. A 12-lead EKG was obtained. IV access is established. She was given a 1 L bolus of normal saline as she denies history of congestive heart failure. This is followed by 130 mL/h because of her age. Laboratory studies are conducted and reviewed. White blood cell count is 17.9. Platelets of 555. Patient continues to test positive for Covid. Chest x-ray was performed which demonstrates infiltrate and atelectasis at both lung bases. Due to the leukocytosis and fever she was given a gram of Tylenol. Rocephin and azithromycin are ordered for antibiotics. Patient remains on oxygen. I did recommend admission for her pneumonia with sepsis for which the patient was agreeable. I will consult pulmonology. Patient is admitted to [facility] - Lab Data Result diagrams: 05/15/22 05:11 05/15/22 05:11 Lab Results 05/14/22 05/14/22 05/14/22 Range/Units 02:38 02:38 02:38 WBC 17.9 H (3.8-10.6) k/uL RBC 4.49 (3.80-5.40) m/uL Hgb 14.1 (11.4-16.0) gm/dL Hct 42.0 (34.0-46.0) % MCV 93.7 (80.0-100.0) fL MCH 31.5 (25.0-35.0) pg MCHC 33.6 (31.0-37.0) g/dL RDW 13.7 (11.5-15.5) % Plt Count 555 H (150-450) k/uL MPV 8.3 Neutrophils % 90 % Lymphocytes % 5 % Monocytes % 3 % Eosinophils % 1 % Basophils % 0 % Neutrophils # 16.1 H (1.3-7.7) k/uL Lymphocytes # 0.9 L (1.0-4.8) k/uL Monocytes # 0.5 (0-1.0) k/uL Eosinophils # 0.1 (0-0.7) k/uL Basophils # 0.1 (0-0.2) k/uL PT (9.0-12.0) sec INR (<1.2) APTT (22.0-30.0) sec Sodium 135 L (137-145) mmol/L Potassium 4.1 (3.5-5.1) mmol/L Chloride 100 (98-107) mmol/L Carbon Dioxide 27 (22-30) mmol/L Anion Gap 8 mmol/L BUN 10 (7-17) mg/dL Creatinine 0.69 (0.52-1.04) mg/dL Est GFR (CKD-EPI)AfAm >90 (>60 ml/min/1.73 sqM) Est GFR (CKD-EPI)NonAf 80 (>60 ml/min/1.73 sqM) Glucose 102 H (74-99) mg/dL Plasma Lactic Acid Jace 1.3 (0.7-2.0) mmol/L Calcium 8.8 (8.4-10.2) mg/dL Magnesium 1.9 (1.6-2.3) mg/dL Total Bilirubin 0.9 (0.2-1.3) mg/dL AST 30 (14-36) U/L ALT 20 (4-34) U/L Alkaline Phosphatase 92 (38-126) U/L Troponin I (0.000-0.034) ng/mL Total Protein 6.8 (6.3-8.2) g/dL Albumin 3.9 (3.5-5.0) g/dL Coronavirus (PCR) (Not Detectd) Influenza Type A RNA (Not Detectd) Influenza Type B (PCR) (Not Detectd) 05/14/22 05/14/22 05/14/22 Range/Units 02:38 02:38 02:38 WBC (3.8-10.6) k/uL RBC (3.80-5.40) m/uL Hgb (11.4-16.0) gm/dL Hct (34.0-46.0) % MCV (80.0-100.0) fL MCH (25.0-35.0) pg MCHC (31.0-37.0) g/dL RDW (11.5-15.5) % Plt Count (150-450) k/uL MPV Neutrophils % % Lymphocytes % % Monocytes % % Eosinophils % % Basophils % % Neutrophils # (1.3-7.7) k/uL Lymphocytes # (1.0-4.8) k/uL Monocytes # (0-1.0) k/uL Eosinophils # (0-0.7) k/uL Basophils # (0-0.2) k/uL PT (9.0-12.0) sec INR (<1.2) APTT (22.0-30.0) sec Sodium (137-145) mmol/L Potassium (3.5-5.1) mmol/L Chloride (98-107) mmol/L Carbon Dioxide (22-30) mmol/L Anion Gap mmol/L BUN (7-17) mg/dL Creatinine (0.52-1.04) mg/dL Est GFR (CKD-EPI)AfAm (>60 ml/min/1.73 sqM) Est GFR (CKD-EPI)NonAf (>60 ml/min/1.73 sqM) Glucose (74-99) mg/dL Plasma Lactic Acid Jace (0.7-2.0) mmol/L Calcium (8.4-10.2) mg/dL Magnesium (1.6-2.3) mg/dL Total Bilirubin (0.2-1.3) mg/dL AST (14-36) U/L ALT (4-34) U/L Alkaline Phosphatase (38-126) U/L Troponin I <0.012 (0.000-0.034) ng/mL Total Protein (6.3-8.2) g/dL Albumin (3.5-5.0) g/dL Coronavirus (PCR) Detected A (Not Detectd) Influenza Type A RNA Not Detected (Not Detectd) Influenza Type B (PCR) Not Detected (Not Detectd) 05/14/22 Range/Units 04:01 WBC (3.8-10.6) k/uL RBC (3.80-5.40) m/uL Hgb (11.4-16.0) gm/dL Hct (34.0-46.0) % MCV (80.0-100.0) fL MCH (25.0-35.0) pg MCHC (31.0-37.0) g/dL RDW (11.5-15.5) % Plt Count (150-450) k/uL MPV Neutrophils % % Lymphocytes % % Monocytes % % Eosinophils % % Basophils % % Neutrophils # (1.3-7.7) k/uL Lymphocytes # (1.0-4.8) k/uL Monocytes # (0-1.0) k/uL Eosinophils # (0-0.7) k/uL Basophils # (0-0.2) k/uL PT 11.7 (9.0-12.0) sec INR 1.1 (<1.2) APTT 23.7 (22.0-30.0) sec Sodium (137-145) mmol/L Potassium (3.5-5.1) mmol/L Chloride (98-107) mmol/L Carbon Dioxide (22-30) mmol/L Anion Gap mmol/L BUN (7-17) mg/dL Creatinine (0.52-1.04) mg/dL Est GFR (CKD-EPI)AfAm (>60 ml/min/1.73 sqM) Est GFR (CKD-EPI)NonAf (>60 ml/min/1.73 sqM) Glucose (74-99) mg/dL Plasma Lactic Acid Jace (0.7-2.0) mmol/L Calcium (8.4-10.2) mg/dL Magnesium (1.6-2.3) mg/dL Total Bilirubin (0.2-1.3) mg/dL AST (14-36) U/L ALT (4-34) U/L Alkaline Phosphatase (38-126) U/L Troponin I (0.000-0.034) ng/mL Total Protein (6.3-8.2) g/dL Albumin (3.5-5.0) g/dL Coronavirus (PCR) (Not Detectd) Influenza Type A RNA (Not Detectd) Influenza Type B (PCR) (Not Detectd) - EKG Data EKG Comments: EKG demonstrates a sinus tachycardia with a rate of 114. QRS 81. QTC of 393. No acute ST segment elevations or depressions. There is some baseline artifact. EKG is interpreted by myself Disposition Clinical Impression: CAP (community acquired pneumonia), Sepsis, Pyrexia, COPD (chronic obstructive pulmonary disease), Leukocytosis, COVID-19 Disposition: ADMITTED IP TO THIS HOSP Condition: Stable Is patient prescribed a controlled substance at d/c from ED?: No Time of Disposition: 04:35 Decision to Admit Reason: Admit from EC Decision Date: 05/14/22 Decision Time: 04:35
[2022-05-14] MEDS ORDERED: PNEUMONIA PROTOCOL UTILIZED 1 EACH MISC PO PRN (04:37)
[2022-05-14] MEDS ORDERED: AZITHROMYCIN 500 MG in SODIUM CHLORIDE 0.9% 250 ML IVPB STA (04:37)
[2022-05-14] MEDS: APIXABAN 2.5 MG TABLET PO SCH ×2 (07:45→20:22)
[2022-05-14 07:49] LABS: Basophils # (A) 0.1 k/uL (0-0.2); Basophils % (A) 0 %; Eosinophils # (A) 0.2 k/uL (0-0.7); Eosinophils % (A) 1 %; HGB 12.8 gm/dL (11.4-16.0); Hypochromasia Slight; Lymphocytes # (A) 1.2 k/uL (1.0-4.8); Lymphocytes % (A) 6 %; MCH 31.4 pg (25.0-35.0); MCHC 32.8 g/dL (31.0-37.0); MCV 95.7 fL (80.0-100.0); Mean Platelet Volume 7.6; Monocytes # (A) 0.6 k/uL (0-1.0); Monocytes % (A) 3 %; Neutrophils # (A) 16.9 k/uL (1.3-7.7); Neutrophils % (A) 89 %; Platelet Count 541 k/uL (150-450); RBC 4.08 m/uL (3.80-5.40); RDW 13.3 % (11.5-15.5); WBC 19.1 k/uL (3.8-10.6)
[2022-05-14] MEDS: ZINC SULFATE 220 MG CAP PO SCH (07:50)
[2022-05-14] MEDS: DEXAMETHASONE SOD PHOSPHATE 10 MG/ML 1 ML VIAL IVP SCH (07:50)
[2022-05-14] MEDS: CHOLECALCIFEROL 25 MCG (1000 IU) TABLET PO SCH (07:50)
[2022-05-14] MEDS: ASCORBIC ACID 500 MG TAB PO SCH (07:50)
[2022-05-14 07:58] LABS: African American GFR (CKD) >90 (>60 ml/min/1.73 sqM); Anion Gap 4 mmol/L; Blood Urea Nitrogen 11 mg/dL (7-17); Calcium 8.1 mg/dL (8.4-10.2); Carbon Dioxide 30 mmol/L (22-30); Chloride 104 mmol/L (98-107); Glucose 101 mg/dL (74-99); LDH 438 U/L (313-618); Non-African American GFR(CKD) 80 (>60 ml/min/1.73 sqM); Potassium 3.7 mmol/L (3.5-5.1); Sodium 138 mmol/L (137-145)
[2022-05-14 08:13] LABS: C Reactive Protein 8.2 mg/dL (<1.0)
[2022-05-14] MEDS: TIOTROPIUM 2.5 MCG INHALER INHALATION SCH (08:13)
[2022-05-14] MEDS: ALBUTEROL HFA INHALER INHALATION PRN ×3 (08:13→19:22)
[2022-05-14] MEDS: SYMBICORT 160-4.5 MCG INHALER INHALATION PRN ×2 (08:13→19:22)
[2022-05-14] MEDS ORDERED: FAMOTIDINE 20 MG/2 ML VIAL IV SCH (09:00)
[2022-05-14] MEDS ORDERED: ONDANSETRON 4 MG/2 ML VIAL IVP PRN (09:17)
[2022-05-14] MEDS ORDERED: ACETAMINOPHEN IV (For NPO) 1,000 MG in EMPTY BAG 1 BAG IVPB ONE (09:18)
[2022-05-14] MEDS ORDERED: ONDANSETRON 4 MG/2 ML VIAL ONE (09:20)
[2022-05-14] MEDS ORDERED: PROMETHAZINE 25 MG TAB PO PRN (10:14)
[2022-05-14] MEDS ORDERED: traMADol 50 MG TAB PO PRN (10:15)
[2022-05-14] MEDS ORDERED: ACETAMINOPHEN TAB 325 MG TAB PO PRN (10:15)
--- NOTE | 2022-05-14 10:16 | P.HPIM ---
History of Present Illness This is a pleasant 86 years old -Welsh female with past medical history of multiple problems as below including COPD and asthma She presents because of worsening dyspnea over the last 3-4 days with cough and yellowish phlegm and chest pain with coughing. She also has diarrhea and low appetite with some abdominal pain which is improved now. No urinary complaints, no headache or dizziness or weakness or numbness. She quit smoking about 20 years ago. Occasional alcohol and no illicit drugs. Her left hand and wrist are swollen from an infiltrated IV, denies trauma, she has good and good. She states she has history of irregular heart beat and she is on Eliquis and follow-up Dr. Dietz On admission she had a fever of 100.1. She is saturating 97% on 3 L oxygen via nasal cannula Labs showed leukocytosis of 17.9 . INR and BMP and Liver Enzymes Are Unremarkable. Troponin Is Negative Coronavirus Detected EKG showing atrial fibrillation's with RVR at 140 In the emergency room patient was started on ceftriaxone and Zithromax 10 1 continued on home dose of Eliquis and dexamethasone LDH is normal for 38, CRP is elevated at 8.2. ProBNP is low 311. D-dimer 0.8. Review of Systems Review of systems CONSTITUTIONAL: No fever, no malaise, no fatigue. HEENT: No recent visual problems or hearing problems. Denied any sore throat. CARDIOVASCULAR: No orthopnea, PND, no palpitations, no syncope. PULMONARY: No shortness of breath, no cough, no hemoptysis. GASTROINTESTINAL: No diarrhea, no nausea, no vomiting, no abdominal pain. Normoactive bowel sounds. NEUROLOGICAL: No headaches, no weakness, no numbness. HEMATOLOGICAL: Denies any bleeding or petechiae. GENITOURINARY: Denies any burning micturition, frequency, or urgency. MUSCULOSKELETAL/RHEUMATOLOGICAL: Denies any joint pain, swelling, or any muscle pain. ENDOCRINE: Denies any polyuria or polydipsia. 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 Last Myocardial Infarction Date:: 40 years ago History of Any Multi-Drug Resistant Organisms: None Reported Past Surgical History: Cholecystectomy, Hysterectomy, Orthopedic Surgery Additional Past Surgical History / Comment(s): KNEE arthroscopy, COLONOSCOPY- LARGE POLYP REMOVED, EGD, cataracts, Right TKA (10/21/21) Past Anesthesia/Blood Transfusion Reactions: No Reported Reaction Additional Past Anesthesia/Blood Transfusion Reaction / Comment(s): No hx blood transfusion. Past Psychological History: No Psychological Hx Reported Smoking Status: Former smoker Past Alcohol Use History: Occasional Past Drug Use History: None Reported - Past Family History Sister(s) Family Medical History: Cancer Additional Family Medical History / Comment(s): #1 sister colon cancer, # 2 sister lung cancer. Father Family Medical History: Cancer Additional Family Medical History / Comment(s): Prostate cancer. Mother Family Medical History: Asthma Additional Family Medical History / Comment(s): Heart problems. Medications and Allergies Home Medications Medication Instructions Recorded Confirmed Type Losartan Potassium 100 mg PO HS@209910/30/14 11/07/21 History Albuterol Inhaler [Ventolin Hfa 2 puff INHALATION RT-QID PRN 03/17/21 11/07/21 History Inhaler] Metoprolol Tartrate [Lopressor] 50 mg PO DAILY@79903/17/21 11/07/21 History Fluticasone Propion/Salmeterol 1 puff INHALATION RT-BID PRN 10/20/21 11/07/21 History [Advair 500-50 Diskus] Mirabegron [Myrbetriq] 25 mg PO DAILY@79910/20/21 11/07/21 History Moisture Eye Drops 1 drop BOTH EYES TID PRN 10/20/21 11/07/21 History Rosuvastatin [Crestor] 10 mg PO HS@209910/20/21 11/07/21 History Sodium Chloride [Saline Nasal 1 spray EA NOSTRIL DAILY@79910/20/21 11/07/21 History [place]] Tiotropium 18 Mcg/Puff [Spiriva] 1 puff INHALATION RT-DAILY@0800 10/20/21 11/07/21 History traMADol HCl [Ultram] 50 mg PO Q6H PRN #32 tab 10/22/21 11/07/21 Rx Acetaminophen [Acetaminophen ER] 650 mg PO Q4H PRN 11/07/21 11/07/21 History Albuterol Nebulized [Ventolin 2.5 mg INHALATION RT-QID 11/07/21 11/07/21 History Nebulized] Apixaban [Eliquis] 2.5 mg PO BID@0800,1700 11/07/21 11/07/21 History Azithromycin [Zithromax Z-pack (6 250 mg PO DIRECTED #6 tab 11/07/21 Rx tabs)] Docusate [Colace] 100 mg PO BID@0800,1700 11/07/21 11/07/21 History Docusate [Colace] 200 mg PO HS@2100 11/07/21 11/07/21 History Ensure Enlive 120 ml PO TID@0800,1200,1700 11/07/21 11/07/21 History Magnesium Hydroxide [Milk of 7,200 mg PO DAILY PRN 11/07/21 11/07/21 History Magnesia Concentrate] Na Phos,M-B/Na Phos,Di-Ba [Fleet 133 ml RECTAL DAILY PRN 11/07/21 11/07/21 History Adult] Sennosides-Docusate Sodium 2 tab PO HS@2100 11/07/21 11/07/21 History [Senokot-S] bisacodyL [Dulcolax] 10 mg RECTAL DAILY PRN 11/07/21 11/07/21 History methylPREDNISolone Dose Pack 24 mg PO DAILY #1 tab 11/07/21 Rx [Medrol Dose Pack] polyethylene glycoL 3350 [Miralax] 17 gm PO DAILY@0800 11/07/21 11/07/21 History Doxycycline Hyclate 100 mg PO BID #20 tab 03/14/22 Rx Ipratropium Nebulized [Atrovent 0.5 mg INHALATION Q4HR #300 ml 03/14/22 Rx Nebulized 0.2 MG/ML] predniSONE [Deltasone] 20 mg PO BID #10 tab 03/14/22 Rx Allergies Allergy/AdvReac Type Severity Reaction Status Date / Time hydrocodone bitartrate AdvReac states Verified 03/14/22 12:03 [From Vicodin] "doesn't make me feel good" prednisone AdvReac Hallucinati Verified 03/14/22 12:03 ons Physical Exam Vitals: Vital Signs Temp Pulse Pulse Resp BP Pulse Ox 05/14/22 05:23 86 05/14/22 04:52 98.8 F 112 H 18 138/74 97 05/14/22 03:34 117 H 18 152/70 96 05/14/22 01:54 120 H 18 05/14/22 01:48 100.1 F H 118 H 16 94 L 05/14/22 01:45 100.1 F H 118 H 18 159/81 92 L Intake and Output 05/13/22 05/13/22 05/14/22 14:59 22:59 06:59 Other: # Voids 0 Weight 71.214 kg GENERAL: The patient is alert and oriented x3, not in any acute distress. Well developed, well nourished. HEENT: Pupils are round and equally reacting to light. EOMI. No scleral icterus. No conjunctival pallor. Normocephalic, atraumatic. No pharyngeal erythema. No thyromegaly. CARDIOVASCULAR: S1 and S2 present. No murmurs, rubs, or gallops. PULMONARY: Chest is clear to auscultation, no wheezing or crackles. Tachypnea ABDOMEN: Soft, nontender, nondistended, normoactive bowel sounds. No palpable organomegaly. MUSCULOSKELETAL: No joint swelling or deformity. EXTREMITIES: No cyanosis, clubbing, or pedal edema. NEUROLOGICAL: Gross neurological examination did not reveal any focal deficits. SKIN: No rashes. no petechiae. Results CBC & Chem 7: 05/14/22 07:24 05/14/22 07:24 Labs: Abnormal Lab Results - Last 24 Hours (Table) 05/14/22 05/14/22 05/14/22 Range/Units 02:38 02:38 02:38 WBC 17.9 H (3.8-10.6) k/uL Plt Count 555 H (150-450) k/uL Neutrophils # 16.1 H (1.3-7.7) k/uL Lymphocytes # 0.9 L (1.0-4.8) k/uL Sodium 135 L (137-145) mmol/L Glucose 102 H (74-99) mg/dL Coronavirus (PCR) Detected A (Not Detectd) Thrombosis Risk Factor Assmnt - Choose All That Apply Any of the Below Risk Factors Present?: No Each Risk Factor Represents 3 Points: Age 75 years or older Thrombosis Risk Factor Assessment Total Risk Factor Score: 3 Thrombosis Risk Factor Assessment Level: Moderate Risk Assessment and Plan Assessment: Bilateral infiltrates in both lung dutta could be atelectasis versus Bilateral Covid pneumonia versus gram-negative pneumonia Mild Acute hypoxic respiratory failure sepsis with fever and leukocytosis Atrial fibrillation's with RVR, POA Covid infection without increased inflammatory markers Acute COPD/asthma exacerbation Hypertension Hyperlipidemia Hearing difficulty History of osteoarthritis History of peptic ulcer, stomach ulcer History of liver disease Plan: Continue with steroids, currently she is on dexamethasone however patient might benefit from IV Solu-Medrol, we will defer that to headlight assembler Continue with vitamin C, vitamin D and zinc Pulmonary consult Check for inflammatory markers, pronecalcitonin and d-dimer Continue with ceftriaxone and ceftriaxone Labs and medication were reviewed.. Continue same treatment. Continue with symptomatic treatment. Resume home medication. Monitor labs and vitals. DVT and GI prophylaxis. Further recommendations as per clinical course of the patient DVT prophylaxis: Eliquis GI Prophylaxis: Pepcid PT/OT: Pending Prognosis is guarded
[2022-05-14] MEDS: METOPROLOL SUCCINATE (ER) 25 MG TAB.ER.24H PO SCH (11:26)
--- NOTE | 2022-05-14 12:00 | P.CNPUL ---
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 FEV1 value 1.36 L or 72% of predicted. She presented here to the emergency room yesterday with a 3-4 day history of nausea, vomiting and diarrhea. Occasional shortness of breath, green productive sputum. Chest x-ray shows infiltrate/atelectasis of the lung bases. New compared to recent chest x-ray on 04/28/2022. White count 19.1. Hemoglobin 12.8. D-dimer 0.88. Sodium 138. Potassium 3.7. BUN 11. Creatinine 0.7. GFR greater than 90. LDH 438. Troponin negative times one. ProBNP 311. Pro- calcitonin 0.73. [place] virus detected. Influenza screen negative. She is seen today in consultation on the regular medical floor. She is currently sitting up in bed. Awake and alert. She is having ongoing issues with vomiting and diarrhea. No worsening shortness of breath, cough or congestion. 18 O2 saturation in the mid to upper 90s on 4 L/m per nasal cannula. Currently afebrile. Hemodynamically stable. She's been initiated on antibiotics in the form of ceftriaxone and azithromycin. Initiated on Decadron and vitamin supplements. Continue on Symbicort, Spiriva and albuterol inhalers. Anticoagulated with Eliquis. Review of Systems REVIEW OF SYSTEMS: CONSTITUTIONAL: Denies any recent significant weight loss or weight gain. EYES: Denies change in vision. EARS, NOSE, MOUTH, THROAT: Denies headaches, denies sore throat. CARDIOVASCULAR: Denies chest pain, palpitations or syncopal episodes. RESPIRATORY: Positive for shortness of breath, cough, congestion no hemoptysis. GASTROINTESTINAL: Positive for nausea, vomiting, diarrhea GENITOURINARY: Denies hematuria, denies infections. MUSKULOSKELETAL: Denies pain, denies swelling. INTEGUMENTARY: Denies rash, denies eczema. NEUROLOGICAL: Denies recent memory loss, no recent seizure activity. PSYCHIATRIC: Denies anxiety, denies depression. HEMATOLOGIC/LYMPHATIC: Denies anemia, denies enlarged lymph nodes. 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 Last Myocardial Infarction Date:: 40 years ago History of Any Multi-Drug Resistant Organisms: None Reported Past Surgical History: Cholecystectomy, Hysterectomy, Orthopedic Surgery Additional Past Surgical History / Comment(s): KNEE arthroscopy, COLONOSCOPY- LARGE POLYP REMOVED, EGD, cataracts, Right TKA (10/21/21) Past Anesthesia/Blood Transfusion Reactions: No Reported Reaction Additional Past Anesthesia/Blood Transfusion Reaction / Comment(s): No hx blood transfusion. Past Psychological History: No Psychological Hx Reported Smoking Status: Former smoker Past Alcohol Use History: Occasional Past Drug Use History: None Reported - Past Family History Sister(s) Family Medical History: Cancer Additional Family Medical History / Comment(s): #1 sister colon cancer, # 2 sister lung cancer. Father Family Medical History: Cancer Additional Family Medical History / Comment(s): Prostate cancer. Mother Family Medical History: Asthma Additional Family Medical History / Comment(s): Heart problems. Medications and Allergies Home Medications Medication Instructions Recorded Confirmed Type Losartan Potassium 100 mg PO HS@2100 10/30/14 11/07/21 History Albuterol Inhaler [Ventolin Hfa 2 puff INHALATION RT-QID PRN 03/17/21 11/07/21 History Inhaler] Metoprolol Tartrate [Lopressor] 50 mg PO DAILY@0800 03/17/21 11/07/21 History Fluticasone Propion/Salmeterol 1 puff INHALATION RT-BID PRN 10/20/21 11/07/21 History [Advair 500-50 Diskus] Mirabegron [Myrbetriq] 25 mg PO DAILY@0800 10/20/21 11/07/21 History Moisture Eye Drops 1 drop BOTH EYES TID PRN 10/20/21 11/07/21 History Rosuvastatin [Crestor] 10 mg PO HS@2100 10/20/21 11/07/21 History Sodium Chloride [Saline Nasal 1 spray EA NOSTRIL DAILY@0800 10/20/21 11/07/21 History [place]] Tiotropium 18 Mcg/Puff [Spiriva] 1 puff INHALATION RT-DAILY@0800 10/20/21 11/07/21 History traMADol HCl [Ultram] 50 mg PO Q6H PRN #32 tab 10/22/21 11/07/21 Rx Acetaminophen [Acetaminophen ER] 650 mg PO Q4H PRN 11/07/21 11/07/21 History Albuterol Nebulized [Ventolin 2.5 mg INHALATION RT-QID 11/07/21 11/07/21 History Nebulized] Apixaban [Eliquis] 2.5 mg PO BID@0800,1700 11/07/21 11/07/21 History Azithromycin [Zithromax Z-pack (6 250 mg PO DIRECTED #6 tab 11/07/21 Rx tabs)] Docusate [Colace] 100 mg PO BID@0800,1700 11/07/21 11/07/21 History Docusate [Colace] 200 mg PO HS@209911/07/21 11/07/21 History Ensure Enlive 120 ml PO TID@0800,1200,1700 11/07/21 11/07/21 History Magnesium Hydroxide [Milk of 7,200 mg PO DAILY PRN 11/07/21 11/07/21 History Magnesia Concentrate] Na Phos,M-B/Na Phos,Di-Ba [Fleet 133 ml RECTAL DAILY PRN 11/07/21 11/07/21 History Adult] Sennosides-Docusate Sodium 2 tab PO HS@209911/07/21 11/07/21 History [Senokot-S] bisacodyL [Dulcolax] 10 mg RECTAL DAILY PRN 11/07/21 11/07/21 History methylPREDNISolone Dose Pack 24 mg PO DAILY #1 tab 11/07/21 Rx [Medrol Dose Pack] polyethylene glycoL 3350 [Miralax] 17 gm PO DAILY@0800 11/07/21 11/07/21 History Doxycycline Hyclate 100 mg PO BID #20 tab 03/14/22 Rx Ipratropium Nebulized [Atrovent 0.5 mg INHALATION Q4HR #300 ml 03/14/22 Rx Nebulized 0.2 MG/ML] predniSONE [Deltasone] 20 mg PO BID #10 tab 03/14/22 Rx Allergies Allergy/AdvReac Type Severity Reaction Status Date / Time hydrocodone bitartrate AdvReac states Verified 03/14/22 12:03 [From Vicodin] "doesn't make me feel good" prednisone AdvReac Hallucinati Verified 03/14/22 12:03 ons Physical Exam Vitals: Vital Signs Temp Pulse Pulse Resp BP BP Pulse Ox 05/14/22 10:00 98.3 F 106 H 18 137/80 95 05/14/22 08:14 99 05/14/22 08:00 98.1 F 93 17 121/77 99 05/14/22 05:23 86 05/14/22 04:52 98.8 F 112 H 18 138/74 97 05/14/22 03:34 117 H 18 152/70 96 05/14/22 01:54 120 H 18 05/14/22 01:48 100.1 F H 118 H 16 94 L 05/14/22 01:45 100.1 F H 118 H 18 159/81 92 L Intake and Output 05/13/22 05/14/22 05/14/22 22:59 06:59 14:59 Other: # Voids 0 Weight 71.214 kg GENERAL EXAM: Alert, very pleasant 86-year-old female patient, on 4 L nasal cannula, fairly comfortable in no apparent distress. HEAD: Normocephalic. EYES: Normal reaction of pupils, equal size. NOSE: Clear with pink turbinates. THROAT: No erythema or exudates. NECK: No masses, no JVD. CHEST: No chest wall deformity. LUNGS: Equal air entry with crackles in the bilateral bases. CVS: S1 and S2 normal with no audible murmur, regular rhythm. ABDOMEN: No hepatosplenomegaly, hyperactive bowel sounds, no guarding or rigidity. SPINE: No scoliosis or deformity SKIN: No rashes CENTRAL NERVOUS SYSTEM: No focal deficits, tone is normal in all 4 extremities. EXTREMITIES: There is no peripheral edema. No clubbing, no cyanosis. Peripheral pulses are intact. Results - Laboratory Findings CBC and BMP: 05/14/22 07:24 05/14/22 07:24 PT/INR, D-dimer PT 11.7 sec (9.0-12.0) 05/14/22 04:01 INR 1.1 (<1.2) 05/14/22 04:01 D-Dimer 0.88 mg/L FEU (<0.60) H 05/14/22 07:24 Abnormal lab findings: Abnormal Labs 05/14/22 05/14/22 05/14/22 02:38 02:38 02:38 WBC 17.9 H Plt Count 555 H Neutrophils # 16.1 H Lymphocytes # 0.9 L D-Dimer Sodium 135 L Glucose 102 H Calcium C-Reactive Protein Procalcitonin Coronavirus (PCR) Detected A 05/14/22 05/14/22 05/14/22 07:24 07:24 07:24 WBC 19.1 H Plt Count 541 H Neutrophils # 16.9 H Lymphocytes # D-Dimer 0.88 H Sodium Glucose 101 H Calcium 8.1 L C-Reactive Protein 8.2 H Procalcitonin Coronavirus (PCR) 05/14/22 07:24 WBC Plt Count Neutrophils # Lymphocytes # D-Dimer Sodium Glucose Calcium C-Reactive Protein Procalcitonin 0.73 H Coronavirus (PCR) - Diagnostic Findings Chest x-ray: image reviewed Assessment and Plan Assessment: Acute hypoxemic respiratory failure secondary to an acute community-acquired pneumonia. Pro-calcitonin 0.73. Initiated on ceftriaxone and azithromycin Acute exacerbation of chronic obstructive pulmonary disease secondary to above. Acute COVID-19 infection, with previous infection about one month ago treated with PaxLovid and decadron in the outpatient setting. The patient has been vaccinated and boosted Previous history of pseudomonas aeruginosa pneumonia Hypertension Arthritis Gastroesophageal reflux disease Chronic rhinitis Atrial fibrillation, anticoagulated with Eliquis Hyperlipidemia Peptic ulcer disease Plan: The patient was seen and evaluated Chest x-ray, labs and medications reviewed Continue Symbicort, Spiriva, albuterol Continued on Decadron Eliquis for anticoagulation Titrate the FiO2 as tolerated Checkup legionella antigen We will continue to follow and make further recommendations based on her clinical status I have personally seen and examined the patient, performed the documentation and the assessment and plan as written. Number of minutes spent on the visit: 20.
[2022-05-14] MEDS: guaiFENesin-DM 100-10MG/5ML 10 ML CUP PO SCH ×2 (12:24→18:15)
--- NOTE | 2022-05-14 15:00 | CDI ---
Documentation Clarification Form Date: 05/14/2022 02:19:57 PM From: Betty Mcintosh RN CCDS Admit Date: 05/14/2022 04:40:00 AM Patient Name: Kelley Mills Visit Number: [id number] Discharge Date: ATTENTION: The Clinical Documentation Specialists (CDI) and [facility] Coding Staff appreciate your assistance in clarifying documentation. Please respond to the clarification below the line at the bottom and electronically sign. The CDI & [facility] Coding staff will review the response and follow-up if needed. Please note: Queries are made part of the Legal Health Record. If you have any questions, please contact the author of this message via ITS. Dr. Samayoa E Sheet Conflicting documentation has been found in the medical record. As attending physician, please provide clarification. COVID Pneumonia versus Gram negative pneumonia, H&P, 05/14. Acute Community acquired pneumonia, Pulmonology consult, 05/14. History/Risk Factors: 86-year-old female presents to the ED for worsening dyspnea over the last 3-4 days coughing with chest pain and yellowish phlegm. Medical History: Asthma, COPD, HTN and history of smoking. Clinical Indicators: VSS 05/14 B/P 159/81; HR 118; Temp 100.1 F Oral; RR 18; SpO2 92% 2L nasal cannula CXR: 05/14 There is infiltrate and atelectasis at both lung bases. LABS: 05/14 Wbc 17.9; Platelet count 555; Neutrophils 16.1; D-Dimer 0.88; CRP 8.2; Procalcitonin 0.73; Coronavirus PCR Detected. Pulmonary Consult: 05/14 Acute COVID 19 infection, with previous infection about one month ago treated with PaxLovid and decadron in the outpatient setting. The patient has been vaccinated and boosted. Treatment: 05/14 Tylenol PO x 1; 0.9NS 500cc IV bolus x 1; Azithromycin IVPB x 1; Ceftriaxone IVPB x 1; 05/14 current Ventolin Hfa Inhaler Inhalation RT QID PRN; 05/14 current Symbicort Inhalation RT BID PRN; 05/14 current Spiriva Respimat Inhalation RT Daily KENDAL; 05/14 current Vitamin C; 05/14 current Decadron IVP daily; 05/14 current Zinc PO Daily; 05/15 Azithromycin IVPB Daily x 4 Bags; Ceftriaxone IVPB Q24H x 3 Bags. Please clarify which diagnosis is most appropriate: [ ] COVID Pneumonia [ ] Gram Negative Pneumonia [ ] Community Acquired Pneumonia [ ] Other (please specify) [ ] Unable to determine (Template Last Revised: August 2020) Gram Negative Pneumonia MTDD
[2022-05-14] MEDS ORDERED: VANCOMYCIN IV PER PHARMACY 1 EACH MISC MISCELLANE PRN (20:43)
[2022-05-14] MEDS: FAMOTIDINE 20 MG TAB PO SCH (21:37)
[2022-05-14] MEDS: VANCOMYCIN 1,250 MG in SODIUM CHLORIDE 0.9% 250 ML IVPB SCH (22:44)
[2022-05-15] MEDS ORDERED: VANCOMYCIN IV PER PHARMACY 1 EACH MISC MISCELLANE PRN (00:29)
[2022-05-15] MEDS ORDERED: VANCOMYCIN 1,250 MG in SODIUM CHLORIDE 0.9% 250 ML IVPB ONE (00:45)
[2022-05-15] MEDS: guaiFENesin-DM 100-10MG/5ML 10 ML CUP PO SCH ×5 (00:47→23:35)
[2022-05-15 06:02] LABS: African American GFR (CKD) >90 (>60 ml/min/1.73 sqM); Anion Gap 6 mmol/L; Blood Urea Nitrogen 13 mg/dL (7-17); Calcium 8.2 mg/dL (8.4-10.2); Carbon Dioxide 28 mmol/L (22-30); Chloride 104 mmol/L (98-107); Glucose 116 mg/dL (74-99); Non-African American GFR(CKD) 79 (>60 ml/min/1.73 sqM); Potassium 3.9 mmol/L (3.5-5.1); Sodium 138 mmol/L (137-145)
[2022-05-15] MEDS: ALBUTEROL HFA INHALER INHALATION PRN ×2 (07:40→21:09)
[2022-05-15] MEDS: SYMBICORT 160-4.5 MCG INHALER INHALATION PRN (07:41)
[2022-05-15] MEDS: TIOTROPIUM 2.5 MCG INHALER INHALATION SCH (07:41)
--- NOTE | 2022-05-15 08:19 | XR ---
EXAMINATION TYPE: XR chest 1V portable DATE OF EXAM: 05/15/2022 Comparison: 05/14/2022 Clinical History: 86-year-old female covid, copd Findings: The heart is normal size. Relative upper lung lucencies. At the site of prior calcifications. Mild de nsity remains in the lower lungs with aeration improving from prior. No sizable effusion. Impression: COPD with improving bibasilar infiltrates. Some residual densities remaining.
[2022-05-15] MEDS ORDERED: AZITHROMYCIN 500 MG in SODIUM CHLORIDE 0.9% 250 ML IVPB SCH (09:00)
[2022-05-15] MEDS: CHOLECALCIFEROL 25 MCG (1000 IU) TABLET PO SCH (09:21)
[2022-05-15] MEDS: FAMOTIDINE 20 MG TAB PO SCH ×2 (09:22→20:04)
[2022-05-15] MEDS: ASCORBIC ACID 500 MG TAB PO SCH (09:22)
[2022-05-15] MEDS: APIXABAN 2.5 MG TABLET PO SCH ×2 (09:22→20:04)
[2022-05-15] MEDS: ZINC SULFATE 220 MG CAP PO SCH (09:22)
[2022-05-15] MEDS: METOPROLOL SUCCINATE (ER) 25 MG TAB.ER.24H PO SCH (09:22)
[2022-05-15 09:33] LABS: Basophils # (A) 0.02 X 10*3/uL (0.00-0.10); Basophils % (A) 0.1 %; Eosinophils # (A) 0.01 X 10*3/uL (0.04-0.35); Eosinophils % (A) 0 %; HCT 36.1 % (37.2-46.3); HGB 11.5 g/dL (12.0-15.0); Immature Grans, Automated 0.8 %; Lymphocytes # (A) 1.17 X 10*3/uL (0.90-5.00); Lymphocytes % (A) 5.4 %; MCH 30.8 pg (27.0-32.0); MCHC 31.9 g/dL (32.0-37.0); MCV 96.8 fL (80.0-97.0); Mean Platelet Volume 9.9 fL (9.5-12.2); Monocytes # (A) 0.72 X 10*3/uL (0.20-1.00); Monocytes % (A) 3.3 %; NRBC Per 100 WBC 0 /100 WBCS (0.0-0.0); Neutrophils # (A) 19.65 X 10*3/uL (1.80-7.70); Neutrophils % (A) 90.4 %; Platelet Count 582 X 10*3/uL (140-440); RBC 3.73 X 10*6/uL (4.10-5.20); RDW 14.4 % (11.5-14.5); WBC 21.75 X 10*3/uL (4.50-10.00)
[2022-05-15] MEDS: DEXAMETHASONE SOD PHOSPHATE 10 MG/ML 1 ML VIAL IVP SCH (10:56)
[2022-05-15] MEDS: VANCOMYCIN 1,250 MG in SODIUM CHLORIDE 0.9% 250 ML IVPB SCH (14:28)
--- NOTE | 2022-05-15 14:45 | P.PN ---
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 FEV1 value 1.36 L or 72% of predicted. She presented here to the emergency room yesterday with a 3-4 day history of nausea, vomiting and diarrhea. Occasional shortness of breath, green productive sputum. Chest x-ray shows infiltrate/atelectasis of the lung bases. New compared to recent chest x-ray on 04/28/2022. White count 19.1. Hemoglobin 12.8. D-dimer 0.88. Sodium 138. Potassium 3.7. BUN 11. Creatinine 0.7. GFR greater than 90. LDH 438. Troponin negative times one. ProBNP 311. Pro- calcitonin 0.73. [place] virus detected. Influenza screen negative. She is seen today in consultation on the regular medical floor. She is currently si tting up in bed. Awake and alert. She is having ongoing issues with vomiting and diarrhea. No worsening shortness of breath, cough or congestion. 18 O2 saturation in the mid to upper 90s on 4 L/m per nasal cannula. Currently afebrile. Hemodynamically stable. She's been initiated on antibiotics in the form of ceftriaxone and azithromycin. Initiated on Decadron and vitamin supplements. Continue on Symbicort, Spiriva and albuterol inhalers. Anticoagulated with Eliquis. The patient is seen today 05/15/2022 in follow-up on the regular medical floor. She is currently sitting up in bed. Awake and alert in no acute distress. Doing quite a bit better today compared to yesterday. No nausea or vomiting. No diarrhea. No worsening shortness of breath, cough or congestion. Maintaining O2 saturations in the upper 90s on 4 L/m per nasal cannula. She's been afebrile. Hemodynamically stable. Chest x-ray shows evidence of COPD with improving bibasilar infiltrates. Blood cultures are positive for Streptococcus pneumoniae. She's been initiated on vancomycin in addition to the ceftriaxone. Sensitivity pending. White count 21.7. Hemoglobin 11.5. Sodium 138. Potassium 3.9. BUN 13. Creatinine 0.71. Pro-calcitonin 0.73. Legionella antigen negative. She is on bronchodilators. Continued on Decadron and multivitamins. Anticoagulated with Eliquis. Objective - Vital Signs Vital signs: Vital Signs Temp 97.9 F 05/15/22 08:00 Pulse 77 05/15/22 08:00 Resp 16 05/15/22 08:00 BP 129/71 05/15/22 08:00 Pulse Ox 97 05/15/22 08:00 FiO2 Intake & Output 05/14/22 05/15/22 05/15/22 18:59 06:59 18:59 Intake Total 490 Output Total 50 375 Balance -50 115 Intake: Intake, IV Titration 250 Amount Vancomycin 1,250 mg In 250 Sodium Chloride 0.9% 250 ml @ 125 mls/hr IVPB Q16H KENDAL Rx#:[id number] Oral 240 Output: Urine 50 375 Other: Voiding Method Toilet # Voids 1 1 - Exam GENERAL EXAM: Alert, pleasant 86-year-old female patient, on 4 L nasal cannula, comfortable in no apparent distress. HEAD: Normocephalic. EYES: Normal reaction of pupils, equal size. NOSE: Clear with pink turbinates. THROAT: No erythema or exudates. NECK: No masses, no JVD. CHEST: No chest wall deformity. LUNGS: Equal air entry with crackles in the bilateral bases. CVS: S1 and S2 normal with no audible murmur, regular rhythm. ABDOMEN: No hepatosplenomegaly, normal bowel sounds, no guarding or rigidity. SPINE: No scoliosis or deformity SKIN: No rashes CENTRAL NERVOUS SYSTEM: No focal deficits, tone is normal in all 4 extremities. EXTREMITIES: There is no peripheral edema. No clubbing, no cyanosis. Peripheral pulses are intact. - Labs CBC & Chem 7: 05/15/22 05:11 05/15/22 05:11 Labs: Abnormal Lab Results - Last 24 Hours (Table) 05/15/22 05/15/22 Range/Units 05:11 05:11 WBC 21.75 H (4.50-10.00) X 10*3/uL RBC 3.73 L (4.10-5.20) X 10*6/uL Hgb 11.5 L (12.0-15.0) g/dL Hct 36.1 L (37.2-46.3) % MCHC 31.9 L (32.0-37.0) g/dL Plt Count 582 H (140-440) X 10*3/uL Immature Gran # 0.18 H (0.00-0.04) X 10*3/uL Neutrophils # 19.65 H (1.80-7.70) X 10*3/uL Eosinophils # 0.01 L (0.04-0.35) X 10*3/uL Glucose 116 H (74-99) mg/dL Calcium 8.2 L (8.4-10.2) mg/dL Microbiology - Last 24 Hours (Table) 05/15/22 00:10 Gram Stain - Preliminary Sputum Sputum Culture - Preliminary 05/14/22 03:15 Blood Culture Gram Stain - Preliminary Blood 05/14/22 03:38 Blood Culture Gram Stain - Preliminary Blood Blood Culture - Preliminary Streptococcus pneumoniae 05/14/22 03:15 Blood Culture - Final Blood 05/14/22 03:30 Blood Culture - Final Blood Assessment and Plan Assessment: Acute hypoxemic respiratory failure secondary to an acute community-acquired pneumonia. Pro-calcitonin 0.73. Legionella antigen negative Acute exacerbation of chronic obstructive pulmonary disease secondary to above. Bacteremia secondary to Streptococcus pneumoniae. Initiated on vancomycin along with ceftriaxone. Sensitivity pending Acute COVID-19 infection, with previous infection about one month ago treated with PaxLovid and decadron in the outpatient setting. The patient has been vaccinated and boosted Previous history of pseudomonas aeruginosa pneumonia Hypertension Arthritis Gastroesophageal reflux disease Chronic rhinitis Atrial fibrillation, anticoagulated with Eliquis Hyperlipidemia Peptic ulcer disease Plan: The patient was seen and evaluated Chest x-ray, labs and medications reviewed Initiated on vancomycin for positive blood culture Continue Symbicort, Spiriva, albuterol Continued on Decadron Eliquis for anticoagulation Titrate the FiO2 as tolerated We will continue to follow and make further recommendations based on her cli nical status I have personally seen and examined the patient, performed the documentation and the assessment and plan as written. Number of minutes spent on the visit: 10.
[2022-05-15] MEDS: SODIUM CHLORIDE 0.9% 1,000 ML IV SCH (15:03)
--- NOTE | 2022-05-15 22:56 | P.PN ---
Subjective This is a pleasant 86 years old -[place] female with past medical history of multiple problems as below including COPD and asthma She presents because of worsening dyspnea over the last 3-4 days with cough and yellowish phlegm and chest pain with coughing. She also has diarrhea and low appetite with some abdominal pain which is improved now. No urinary complaints, no headache or dizziness or weakness or numbness. She quit smoking about 20 years ago. Occasional alcohol and no illicit drugs. Her left hand and wrist are swollen from an infiltrated IV, denies trauma, she has good and good. She states she has history of irregular heart beat and she is on Eliquis and follow-up Dr. Dietz On admission she had a fever of 100.1. She is saturating 97% on 3 L oxygen via nasal cannula Labs showed leukocytosis of 17.9 . INR and BMP and Liver Enzymes Are Unremarkable. Troponin Is Negative Coronavirus Detected EKG showing atrial fibrillation's with RVR at 140 In the emergency room patient was started on ceftriaxone and Zithromax 10 1 continued on home dose of Eliquis and dexamethasone LDH is normal for 38, CRP is elevated at 8.2. ProBNP is low 311. D-dimer 0.8. 05/15/2022 Patient today feels improvement she says her breathing easier but she coughs a lot She is saturating well on 3-4 L via nasal cannula, oxygen saturation 95-97% She has leukocytosis of 21,000, hemoglobin 11.5. Patient has positive blood culture for Streptococcus pneumoniae, currently she is kept on ceftriaxone 2 g daily Azithromycin and vancomycin were discontinued with Chest x-ray shows COPD with improvement of bibasilar infiltrates Patient tolerance that well. Vital signs stable. We can discontinue the normal saline at 50 mL/h Objective - Vital Signs Vital signs: Vital Signs Temp 97.9 F 05/15/22 08:00 Pulse 77 05/15/22 08:00 Resp 16 05/15/22 08:00 BP 129/71 05/15/22 08:00 Pulse Ox 97 05/15/22 08:00 FiO2 Intake & Output 05/14/22 05/15/22 05/15/22 18:59 06:59 18:59 Intake Total 490 Output Total 50 375 Balance -50 115 Intake: Intake, IV Titration 250 Amount Vancomycin 1,250 mg In 250 Sodium Chloride 0.9% 250 ml @ 125 mls/hr IVPB Q16H KENDAL Rx#:[id number] Oral 240 Output: Urine 50 375 Other: Voiding Method Toilet # Voids 1 1 - Exam GENERAL: The patient is alert and oriented x3, not in any acute distress. Well developed, well nourished. HEENT: Pupils are round and equally reacting to light. EOMI. No scleral icterus. No conjunctival pallor. Normocephalic, atraumatic. No pharyngeal erythema. No th yromegaly. CARDIOVASCULAR: S1 and S2 present. No murmurs, rubs, or gallops. PULMONARY: Chest is clear to auscultation, no wheezing or crackles. ABDOMEN: Soft, nontender, nondistended, normoactive bowel sounds. No palpable organomegaly. MUSCULOSKELETAL: No joint swelling or deformity. EXTREMITIES: No cyanosis, clubbing, or pedal edema. NEUROLOGICAL: Gross neurological examination did not reveal any focal deficits. SKIN: No rashes. no petechiae. - Labs CBC & Chem 7: 05/15/22 05:11 05/15/22 05:11 Labs: Abnormal Lab Results - Last 24 Hours (Table) 05/15/22 05/15/22 Range/Units 05:11 05:11 WBC 21.75 H (4.50-10.00) X 10*3/uL RBC 3.73 L (4.10-5.20) X 10*6/uL Hgb 11.5 L (12.0-15.0) g/dL Hct 36.1 L (37.2-46.3) % MCHC 31.9 L (32.0-37.0) g/dL Plt Count 582 H (140-440) X 10*3/uL Immature Gran # 0.18 H (0.00-0.04) X 10*3/uL Neutrophils # 19.65 H (1.80-7.70) X 10*3/uL Eosinophils # 0.01 L (0.04-0.35) X 10*3/uL Glucose 116 H (74-99) mg/dL Calcium 8.2 L (8.4-10.2) mg/dL Microbiology - Last 24 Hours (Table) 05/15/22 00:10 Gram Stain - Preliminary Sputum Sputum Culture - Preliminary 05/14/22 03:15 Blood Culture Gram Stain - Preliminary Blood 05/14/22 03:38 Blood Culture Gram Stain - Preliminary Blood Blood Culture - Preliminary Streptococcus pneumoniae 05/14/22 03:15 Blood Culture - Final Blood 05/14/22 03:30 Blood Culture - Final Blood Assessment and Plan Assessment: Bilateral infiltrates in both lung dutta could be atelectasis versus Bilateral Covid pneumonia versus gram-negative pneumonia, most likely it's a gram-negative pneumonia Mild Acute hypoxic respiratory failure sepsis with fever and leukocytosis Streptococcus pneumoniae bacteremia Atrial fibrillation's with RVR, POA Covid infection without increased inflammatory markers Acute COPD/asthma exacerbation Hypertension Hyperlipidemia Hearing difficulty History of osteoarthritis History of peptic ulcer, stomach ulcer History of liver disease Plan: Antibiotics was adjusted to ceftriaxone Monitor white cell count and oxygen status Continue with vitamin C, vitamin D and zinc Pulmonary consult Labs and medication were reviewed.. Continue same treatment. Continue with symptomatic treatment. Resume home medication. Monitor labs and vitals. DVT and GI prophylaxis. Further recommendations as per clinical course of the pat ient DVT prophylaxis: Eliquis GI Prophylaxis: Pepcid PT/OT: Pending Prognosis is guarded
--- NOTE | 2022-05-15 23:35 | P.CONS ---
History of Present Illness - Reason for Consult Consult date: 05/15/22 Bacteremia Requesting physician: Kaila Plascencia - Chief Complaint Worsening cough x one week - History of Present Illness Patient is a 86-year-old female with a past medical history significant for hypertension COPD with recent diagnosis of covid19 infection beginning of April 2022 that was treated with Paxlovid, patient is presenting to the ER this time for evaluation of increasing shortness of breath patient also have a cough which has been moderate to severe in intensity and has been bringing up some greenish sputum denies having any hemoptysis no pleuritic chest pain patient also complaining of decreased oral intake some nausea but no vomiting no abdominal pain did have some diarrhea with the symptom the patient was evaluated by ER physician on arrival to the ER patient did have a low-grade fever 100.1 F patient was mildly hypoxic O2 sats of 92% he is currently on 4 L nasal cannula patient did have white count of 17.9 which is up to 21.75 today with a left shift creatinine has been normal patient did have a positive COVID test influenza testing was negative patient did have a blood culture drawn which is now growing Streptococcus pneumoniae patient is on her Rocephin and Zithromax vancomycin was added infectious disease was consulted for further management of antibiotic therapy patient chest x-ray with bibasilar infiltrate Review of Systems Positive point has been mentioned in the HPI rest of the systems are negative Past Medical History Past Medical History: Asthma, COPD, Eye Disorder, Hearing Disorder / Deafness, Hyperlipidemia, Hypertension, Liver Disease, Osteoarthritis (OA) Additional Past Medical History / Comment(s): Hx stomach ulcer, cysts on liver., urinary leakage., small hiatal hernia, diverticulosis, tinnitus , Pneumonia 2019., Oxygen @ 2 L PRN., environmental allergies, back pain., 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 Last Myocardial Infarction Date:: 40 years ago History of Any Multi-Drug Resistant Organisms: None Reported Past Surgical History: Cholecystectomy, Hysterectomy, Orthopedic Surgery Additional Past Surgical History / Comment(s): KNEE arthroscopy, COLONOSCOPY- LARGE POLYP REMOVED, EGD, cataracts, Right TKA (10/21/21) Past Anesthesia/Blood Transfusion Reactions: No Reported Reaction Additional Past Anesthesia/Blood Transfusion Reaction / Comm: No hx blood transfusion. Past Psychological History: No Psychological Hx Reported Smoking Status: Former smoker Past Alcohol Use History: Occasional Past Drug Use History: None Reported - Past Family History Sister(s) Family Medical History: Cancer Additional Family Medical History / Comment(s): #1 sister colon cancer, # 2 sister lung cancer. Father Family Medical History: Cancer Additional Family Medical History / Comment(s): Prostate cancer. Mother Family Medical History: Asthma Additional Family Medical History / Comment(s): Heart problems. Medications and Allergies Home Medications Medication Instructions Recorded Confirmed Type Losartan Potassium 100 mg PO DAILY 10/30/14 05/14/22 History Albuterol Inhaler [Ventolin Hfa 2 puff INHALATION RT-Q4H PRN 03/17/21 05/14/22 History Inhaler] Fluticasone Propion/Salmeterol 1 puff INHALATION RT-BID PRN 10/20/21 05/14/22 History [Advair 500-50 Diskus] Rosuvastatin [Crestor] 10 mg PO DAILY 10/20/21 05/14/22 History Tiotropium 18 Mcg/Puff [Spiriva] 1 puff INHALATION RT-DAILY 10/20/21 05/14/22 History Albuterol Nebulized [Ventolin 2.5 mg INHALATION RT-QID 11/07/21 05/14/22 History Nebulized] Fluticasone/Umeclidin/Vilanter 1 puff INHALATION RT-DAILY 05/14/22 05/14/22 History [Trelegy Ellipta 100-62.5-25] Ipratropium-Albuterol Nebulize 3 ml INHALATION RT-Q4H 05/14/22 05/14/22 History [Duoneb 0.5 mg-3 mg/3 ml Soln] Metoprolol Succinate (ER) [Toprol 25 mg PO DAILY 05/14/22 05/14/22 History Xl] Mirtazapine 7.5 mg PO DIRECTED 05/14/22 05/14/22 History Montelukast [Singulair] 10 mg PO DAILY 05/14/22 05/14/22 History guaiFENesin-Coden 100-10MG/5ML 5 ml PO Q6H PRN 05/14/22 05/14/22 History [Robitussin AC] predniSONE 5 mg PO DAILY 05/14/22 05/14/22 History Allergies Allergy/AdvReac Type Severity Reaction Status Date / Time hydrocodone bitartrate AdvReac states Verified 03/14/22 12:03 [From Vicodin] "doesn't make me feel good" prednisone AdvReac Hallucinati Verified 03/14/22 12:03 ons Physical Exam Vitals: Vital Signs Temp Pulse Resp BP Pulse Ox 05/15/22 08:00 97.9 F 77 16 129/71 97 05/15/22 01:52 97.8 F 71 16 129/73 98 05/14/22 19:29 98.0 F 81 16 128/70 97 05/14/22 14:00 97.8 F 89 17 127/71 98 Intake and Output 05/14/22 05/15/22 05/15/22 22:59 06:59 14:59 Intake Total 490 Output Total 50 375 Balance -50 115 Intake: Intake, IV Titration 250 Amount Vancomycin 1,250 mg In 250 Sodium Chloride 0.9% 250 ml @ 125 mls/hr IVPB Q16H [facility] Rx#:[id number] Oral 240 Output: Urine 50 375 Other: # Voids 1 1 GENERAL DESCRIPTION: Elderly female lying in bed, no distress. No tachypnea or accessory muscle of respiration use. HEENT: Shows Pallor , no scleral icterus. Oral mucous membrane is dry. No pharyngeal erythema or thrush NECK: Trachea central, no thyromegaly. LUNGS: Unlabored breathing. Coarse breath sounds bilaterally. HEART: S1, S2, regular rate and rhythm. No loud murmur ABDOMEN: Soft, no tenderness , guarding or rigidity, no organomegaly EXTREMITIES: No edema of feet. SKIN: No rash, no masses palpable. NEUROLOGICAL: The patient is awake, alert, oriented x3, mood and affect normal. Results CBC & Chem 7: 05/15/22 05:11 05/15/22 05:11 Labs: Abnormal Lab Results - Last 24 Hours (Table) 05/15/22 05/15/22 Range/Units 05:11 05:11 WBC 21.75 H (4.50-10.00) X 10*3/uL RBC 3.73 L (4.10-5.20) X 10*6/uL Hgb 11.5 L (12.0-15.0) g/dL Hct 36.1 L (37.2-46.3) % MCHC 31.9 L (32.0-37.0) g/dL Plt Count 582 H (140-440) X 10*3/uL Immature Gran # 0.18 H (0.00-0.04) X 10*3/uL Neutrophils # 19.65 H (1.80-7.70) X 10*3/uL Eosinophils # 0.01 L (0.04-0.35) X 10*3/uL Glucose 116 H (74-99) mg/dL Calcium 8.2 L (8.4-10.2) mg/dL Microbiology - Last 24 Hours (Table) 05/15/22 00:10 Sputum Culture - Preliminary Sputum 05/14/22 03:15 Blood Culture Gram Stain - Preliminary Blood 05/14/22 03:38 Blood Culture Gram Stain - Preliminary Blood Blood Culture - Preliminary Streptococcus pneumoniae 05/14/22 03:15 Blood Culture - Final Blood 05/14/22 03:30 Blood Culture - Final Blood Assessment and Plan (1) Bacteremia Current Visit: Yes Status: Acute Code(s): R78.81 - BACTEREMIA SNOMED Code(s): 1275870 Plan: 1patient presented to hospital with increasing shortness of breath and a cough with greenish sputum production now with evidence of Streptococcus pneumonia bacteremia source likely pneumonia in this patient with bibasilar infiltrate seen on the chest x-ray. 2patient who did have a positive COVID test however she tested positive beginning of April that has been treated with paxlovid and the current positive test is likely related to that episode rather than reinfection and does not need any specific treatment for it 3obtain sputum for gram stain culture 4blood cultures will be repeated document clearance of bacteremia 5patient to continue Rocephin and vancomycin while waiting for sensitivity however discontinue Zithromax We will follow on clinical condition and cultures to further adjust medication if needed Thank you for this consultation will follow this patient along with you Time with Patient: Greater than 30
[2022-05-16] MEDS: guaiFENesin-DM 100-10MG/5ML 10 ML CUP PO SCH ×4 (05:41→23:58)
[2022-05-16] MEDS: TIOTROPIUM 2.5 MCG INHALER INHALATION SCH ×2 (07:48→08:18)
[2022-05-16] MEDS: CHOLECALCIFEROL 25 MCG (1000 IU) TABLET PO SCH (08:01)
[2022-05-16] MEDS: FAMOTIDINE 20 MG TAB PO SCH ×2 (08:01→21:20)
[2022-05-16] MEDS: APIXABAN 2.5 MG TABLET PO SCH ×2 (08:01→21:20)
[2022-05-16] MEDS: METOPROLOL SUCCINATE (ER) 25 MG TAB.ER.24H PO SCH (08:01)
[2022-05-16] MEDS: ASCORBIC ACID 500 MG TAB PO SCH (08:01)
[2022-05-16] MEDS: DEXAMETHASONE SOD PHOSPHATE 10 MG/ML 1 ML VIAL IVP SCH (08:02)
[2022-05-16] MEDS: ZINC SULFATE 220 MG CAP PO SCH (08:02)
[2022-05-16] MEDS: ALBUTEROL HFA INHALER INHALATION PRN ×2 (08:17→21:25)
[2022-05-16] MEDS: SYMBICORT 160-4.5 MCG INHALER INHALATION PRN ×2 (08:18→21:25)
[2022-05-16] MEDS: SODIUM CHLORIDE 0.9% 1,000 ML IV SCH (08:19)
--- NOTE | 2022-05-16 12:26 | P.PN ---
Subjective Progress Note Date: 05/16/22 This is a very pleasant 86-year-old female patient who has a history of hypertension, previous pneumonia secondary to Pseudomonas, recent COVID-19 infection approximately one month ago treated with Paxlovid, severe chronic obstructive pulmonary disease with advanced bullous emphysema maintained on Trelegy and albuterol in the outpatient setting. FEV1 value 1.36 L or 72% of predicted. She presented here to the emergency room yesterday with a 3-4 day history of nausea, vomiting and diarrhea. Occasional shortness of breath, green productive sputum. Chest x-ray shows infiltrate/atelectasis of the lung bases. New compared to recent chest x-ray on 04/28/2022. White count 19.1. Hemoglobin 12.8. D-dimer 0.88. Sodium 138. Potassium 3.7. BUN 11. Creatinine 0.7. GFR greater than 90. LDH 438. Troponin negative times one. ProBNP 311. Pro- calcitonin 0.73. [place] virus detected. Influenza screen negative. She is seen today in consultation on the regular medical floor. She is currently si tting up in bed. Awake and alert. She is having ongoing issues with vomiting and diarrhea. No worsening shortness of breath, cough or congestion. 18 O2 saturation in the mid to upper 90s on 4 L/m per nasal cannula. Currently afebrile. Hemodynamically stable. She's been initiated on antibiotics in the form of ceftriaxone and azithromycin. Initiated on Decadron and vitamin supplements. Continue on Symbicort, Spiriva and albuterol inhalers. Anticoagulated with Eliquis. The patient is seen today 05/15/2022 in follow-up on the regular medical floor. She is currently sitting up in bed. Awake and alert in no acute distress. Doing quite a bit better today compared to yesterday. No nausea or vomiting. No diarrhea. No worsening shortness of breath, cough or congestion. Maintaining O2 saturations in the upper 90s on 4 L/m per nasal cannula. She's been afebrile. Hemodynamically stable. Chest x-ray shows evidence of COPD with improving bibasilar infiltrates. Blood cultures are positive for Streptococcus pneumoniae. She's been initiated on vancomycin in addition to the ceftriaxone. Sensitivity pending. White count 21.7. Hemoglobin 11.5. Sodium 138. Potassium 3.9. BUN 13. Creatinine 0.71. Pro-calcitonin 0.73. Legionella antigen negative. She is on bronchodilators. Continued on Decadron and multivitamins. Anticoagulated with Eliquis. The patient is seen today 05/16/2022 in follow-up on the regular medical floor. She is awake and alert in no acute distress. Feeling better today compared to yesterday. She did have some diarrhea earlier this morning. No worsening shortness of breath, cough or congestion. No nausea or vomiting. Blood cultures were positive for Streptococcus pneumoniae. Follow-up blood culture pending. Sputum culture pending. She is on bronchodilators. Continued on Decadron and multivitamins. Anticoagulated with Eliquis. Remains on ceftriaxone. Objective - Vital Signs Vital signs: Vital Signs Temp 98.4 F 05/16/22 08:01 Pulse 70 05/16/22 08:01 Resp 17 05/16/22 08:01 BP 146/77 05/16/22 08:01 Pulse Ox 100 05/16/22 08:01 FiO2 Intake & Output 05/15/22 05/16/22 05/16/22 18:59 06:59 18:59 Intake Total 600 1370 118 Balance 600 1370 118 Intake: IV 600 Sodium Chloride 0.9% 1, 600 000 ml @ 50 mls/hr IV . Q20H [facility] Rx#:[id number] Intake, IV Titration 650 Amount Sodium Chloride 0.9% 1, 400 000 ml @ 50 mls/hr IV . Q20H [facility] Rx#:[id number] Vancomycin 1,250 mg In 250 Sodium Chloride 0.9% 250 ml @ 125 mls/hr IVPB Q16H [facility] Rx#:[id number] Oral 720 118 Other: Voiding Method Toilet Toilet # Voids 2 - Exam GENERAL EXAM: Alert, 86-year-old female patient, on 4 L nasal cannula, comfortable in no apparent distress. HEAD: Normocephalic. EYES: Normal reaction of pupils, equal size. NOSE: Clear with pink turbinates. THROAT: No erythema or exudates. NECK: No masses, no JVD. CHEST: No chest wall deformity. LUNGS: Equal air entry with crackles in the bilateral bases. CVS: S1 and S2 normal with no audible murmur, regular rhythm. ABDOMEN: No hepatosplenomegaly, normal bowel sounds, no guarding or rigidity. SPINE: No scoliosis or deformity SKIN: No rashes CENTRAL NERVOUS SYSTEM: No focal deficits, tone is normal in all 4 extremities. EXTREMITIES: There is no peripheral edema. No clubbing, no cyanosis. Peripheral pulses are intact. - Labs CBC & Chem 7: 05/15/22 05:11 05/15/22 05:11 Labs: Microbiology - Last 24 Hours (Table) 05/15/22 00:10 Gram Stain - Preliminary Sputum Sputum Culture - Preliminary 05/15/22 05:11 Blood Culture - Preliminary Blood No Growth after 24 hours 05/14/22 03:15 Blood Culture Gram Stain - Preliminary Blood 05/14/22 03:38 Blood Culture Gram Stain - Preliminary Blood Blood Culture - Preliminary Streptococcus pneumoniae Assessment and Plan Assessment: Acute hypoxemic respiratory failure secondary to an acute community-acquired pneumonia. Pro-calcitonin 0.73. Legionella antigen negative Acute exacerbation of chronic obstructive pulmonary disease secondary to above. Bacteremia secondary to Streptococcus pneumoniae. Currently on ceftriaxone. Sensitivity pending Acute COVID-19 infection, with previous infection about one month ago treated with PaxLovid and decadron in the outpatient setting. The patient has been vaccinated and boosted Previous history of pseudomonas aeruginosa pneumonia Hypertension Arthritis Gastroesophageal reflux disease Chronic rhinitis Atrial fibrillation, anticoagulated with Eliquis Hyperlipidemia Peptic ulcer disease Plan: The patient was seen and evaluated Medications reviewed Continue the current treatment plan Titrate the FiO2 as tolerated We will continue to follow I have personally seen and examined the patient, performed the documentation and the assessment and plan as written. Number of minutes spent on the visit: 10.
--- NOTE | 2022-05-16 12:42 | P.PN ---
Subjective Progress Note Date: 05/16/22 This is a pleasant 86 years old -[place] female with past medical history of multiple problems as below including COPD and asthma She presents because of worsening dyspnea over the last 3-4 days with cough and yellowish phlegm and chest pain with coughing. She also has diarrhea and low appetite with some abdominal pain which is improved now. No urinary complaints, no headache or dizziness or weakness or numbness. She quit smoking about 20 years ago. Occasional alcohol and no illicit drugs. Her left hand and wrist are swollen from an infiltrated IV, denies trauma, she has good and good. She states she has history of irregular heart beat and she is on Eliquis and follow-up Dr. Dietz On admission she had a fever of 100.1. She is saturating 97% on 3 L oxygen via nasal cannula Labs showed leukocytosis of 17.9 . INR and BMP and Liver Enzymes Are Unremarkable. Troponin Is Negative Coronavirus Detected EKG showing atrial fibrillation's with RVR at 140 In the emergency room patient was started on ceftriaxone and Zithromax 10 1 continued on home dose of Eliquis and dexamethasone LDH is normal for 38, CRP is elevated at 8.2. ProBNP is low 311. D-dimer 0.8. 05/15/2022 Patient today feels improvement she says her breathing easier but she coughs a lot She is saturating well on 3-4 L via nasal cannula, oxygen saturation 95-97% She has leukocytosis of 21,000, hemoglobin 11.5. Patient has positive blood culture for Streptococcus pneumoniae, currently she is kept on ceftriaxone 2 g daily Azithromycin and vancomycin were discontinued with Chest x-ray shows COPD with improvement of bibasilar infiltrates Patient tolerance that well. Vital signs stable. We can discontinue the normal saline at 50 mL/h 05/16. Patient seen and examined. Continues to complain or weakness. Patient has been afebrile. Having diarrhea REVIEW OF SYSTEMS: CONSTITUTIONAL: No fever, no malaise,. CARDIOVASCULAR: No chest pain, no palpitations, no syncope. PULMONARY: No shortness of breath, no cough, GASTROINTESTINAL: no nausea, no vomiting, no abdominal pain. NEUROLOGICAL: No headaches, no weakness, PHYSICAL EXAMINATION: GENERAL: The patient is alert and oriented x3, not in any acute distress. Well developed, well nourished. HEENT: Pupils are round and equally reacting to light. EOMI. No scleral icterus. No conjunctival pallor. Normocephalic, atraumatic. No pharyngeal erythema. No thyromegaly. CARDIOVASCULAR: S1 and S2 present. No murmurs, rubs, or gallops. PULMONARY: Coarse breath some bilaterally, no wheeze ABDOMEN: Soft, nontender, nondistended, normoactive bowel sounds. No palpable organomegaly. MUSCULOSKELETAL: No joint swelling or deformity. EXTREMITIES: No cyanosis, clubbing, or pedal edema. NEUROLOGICAL: Gross neurological examination did not reveal any focal deficits. SKIN: No rashes. Assessment and plan Bacterial pneumonia Acute hypoxic respiratory failure sepsis with fever and leukocytosis Streptococcus pneumoniae bacteremia History of COVID-19 infection Atrial fibrillation's with RVR, POA Covid infection without increased inflammatory markers Acute COPD/asthma exacerbation Hypertension Hyperlipidemia Hearing difficulty History of osteoarthritis History of peptic ulcer, stomach ulcer History of liver disease Plan: Monitor vital signs. Monitor CBC Continue oxygen supplementation Aggressive bronchopulmonary hygiene Follow-up on blood cultures Continue ceftriaxone and vancomycin Follow-up in ID recommendations follow-up on pulmonary recommendations Labs and medication were reviewed.. Continue same treatment. Continue with symptomatic treatment. Resume home medication. Monitor labs and vitals. DVT and GI prophylaxis. Further recommendations as per clinical course of the patie nt DVT prophylaxis: Eliquis DVT prophylaxis: Objective - Vital Signs Vital signs: Vital Signs Temp 98.4 F 05/16/22 08:01 Pulse 70 05/16/22 08:01 Resp 17 05/16/22 08:01 BP 146/77 05/16/22 08:01 Pulse Ox 100 05/16/22 08:01 FiO2 Intake & Output 05/15/22 05/16/22 05/16/22 18:59 06:59 18:59 Intake Total 600 1370 118 Balance 600 1370 118 Intake: IV 600 Sodium Chloride 0.9% 1, 600 000 ml @ 50 mls/hr IV . Q20H [facility] Rx#:[id number] Intake, IV Titration 650 Amount Sodium Chloride 0.9% 1, 400 000 ml @ 50 mls/hr IV . Q20H [facility] Rx#:[id number] Vancomycin 1,250 mg In 250 Sodium Chloride 0.9% 250 ml @ 125 mls/hr IVPB Q16H [facility] Rx#:[id number] Oral 720 118 Other: Voiding Method Toilet Toilet # Voids 2 - Labs CBC & Chem 7: 05/15/22 05:11 05/15/22 05:11 Labs: Microbiology - Last 24 Hours (Table) 05/15/22 00:10 Gram Stain - Preliminary Sputum Sputum Culture - Preliminary 05/15/22 05:11 Blood Culture - Preliminary Blood No Growth after 24 hours 05/14/22 03:15 Blood Culture Gram Stain - Preliminary Blood 05/14/22 03:38 Blood Culture Gram Stain - Preliminary Blood Blood Culture - Preliminary Streptococcus pneumoniae
--- NOTE | 2022-05-17 00:22 | P.PN ---
Subjective Progress Note Date: 05/16/22 Principal diagnosis: Pneumonia and bacteremia Patient is a 86-year-old -[place] female with a past medical history significant for hypertension COPD recent diagnosis of covid 19 presenting to the hospital with increasing shortness of cough and pneumonia and did have a pos itive blood culture with strep pneumo. On today's evaluation and is 05/16/2022 patient denies having any fever or chills patient is breathing slightly comfortably; no significant cough and bring up sputum no hemoptysis, nausea no vomiting and no diarrhea Objective - Vital Signs Vital signs: Vital Signs Temp 98.4 F 05/16/22 08:01 Pulse 70 05/16/22 08:01 Resp 17 05/16/22 08:01 BP 146/77 05/16/22 08:01 Pulse Ox 100 05/16/22 08:01 FiO2 Intake & Output 05/15/22 05/16/22 05/16/22 18:59 06:59 18:59 Intake Total 600 1370 118 Balance 600 1370 118 Intake: IV 600 Sodium Chloride 0.9% 1, 600 000 ml @ 50 mls/hr IV . Q20H [facility] Rx#:[id number] Intake, IV Titration 650 Amount Sodium Chloride 0.9% 1, 400 000 ml @ 50 mls/hr IV . Q20H [facility] Rx#:[id number] Vancomycin 1,250 mg In 250 Sodium Chloride 0.9% 250 ml @ 125 mls/hr IVPB Q16H [facility] Rx#:[id number] Oral 720 118 Other: Voiding Method Toilet Toilet # Voids 2 - Exam GENERAL DESCRIPTION: An elderly female lying in bed in no distress RESPIRATORY SYSTEM: Unlabored breathing , decreased breath sounds at bases HEART: S1 S2 regular rate and rhythm , ABDOMEN: Soft , no tenderness EXTREMITIES: No edema feet - Labs CBC & Chem 7: 05/15/22 05:11 05/15/22 05:11 Labs: Microbiology - Last 24 Hours (Table) 05/15/22 00:10 Gram Stain - Preliminary Sputum Sputum Culture - Preliminary 05/15/22 05:11 Blood Culture - Preliminary Blood No Growth after 24 hours 05/14/22 03:15 Blood Culture Gram Stain - Preliminary Blood Assessment and Plan (1) Bacteremia Current Visit: Yes Status: Acute Code(s): R78.81 - BACTEREMIA SNOMED Code(s): 0178180 Plan: 1patient presented to hospital with increasing shortness of breath and a cough with greenish sputum production now with evidence of Streptococcus pneumonia bacteremia source likely pneumonia in this patient with bibasilar infiltrate seen on the chest x-ray. 2patient who did have a positive COVID test however she tested positive beginning of April that has been treated with paxlovid and the current positive test is likely related to that episode rather than reinfection and does not need any specific treatment for it 3 sputum for gram stain culture has been obtained and currently pending 4blood cultures will be repeated document clearance of bacteremia 5patient to continue Rocephin and vancomycin while waiting for sensitivity to finalize and monitor clinical course closely Time with Patient: Less than 30
[2022-05-17] MEDS: guaiFENesin-DM 100-10MG/5ML 10 ML CUP PO SCH ×2 (06:56→12:10)
[2022-05-17] MEDS: SODIUM CHLORIDE 0.9% 1,000 ML IV SCH (06:57)
[2022-05-17] MEDS: ALBUTEROL HFA INHALER INHALATION PRN ×2 (07:19→21:14)
[2022-05-17] MEDS: SYMBICORT 160-4.5 MCG INHALER INHALATION PRN ×2 (07:19→21:14)
[2022-05-17] MEDS: TIOTROPIUM 2.5 MCG INHALER INHALATION SCH (07:19)
[2022-05-17] MEDS: ZINC SULFATE 220 MG CAP PO SCH (08:24)
[2022-05-17] MEDS: ASCORBIC ACID 500 MG TAB PO SCH (08:25)
[2022-05-17] MEDS: APIXABAN 2.5 MG TABLET PO SCH ×2 (08:25→21:20)
[2022-05-17] MEDS: CHOLECALCIFEROL 25 MCG (1000 IU) TABLET PO SCH (08:25)
[2022-05-17] MEDS: METOPROLOL SUCCINATE (ER) 25 MG TAB.ER.24H PO SCH (08:25)
[2022-05-17] MEDS: FAMOTIDINE 20 MG TAB PO SCH ×2 (08:25→21:20)
[2022-05-17] MEDS: DEXAMETHASONE SOD PHOSPHATE 10 MG/ML 1 ML VIAL IVP SCH (08:25)
[2022-05-17 10:29] LABS: HCT 36.8 % (37.2-46.3); MCH 30.9 pg (27.0-32.0); MCHC 32.6 g/dL (32.0-37.0); MCV 94.8 fL (80.0-97.0); Mean Platelet Volume 10.1 fL (9.5-12.2); NRBC Per 100 WBC 0 /100 WBCS (0.0-0.0); Platelet Count 674 X 10*3/uL (140-440); RBC 3.88 X 10*6/uL (4.10-5.20); WBC 14.28 X 10*3/uL (4.50-10.00)
[2022-05-17 11:08] LABS: ALT 27 U/L (8-44); AST 18 U/L (13-35); African American GFR (CKD) 95.3 (60.0-200.0); Albumin 3.3 g/dL (3.8-4.9); Albumin/Globulin Ratio 1.43 (1.60-3.17); Alkaline Phosphatase 84 U/L (41-126); BUN/Creat Ratio 14.04 Ratio (12.00-20.00); Blood Urea Nitrogen 8.9 mg/dL (9.0-27.0); Carbon Dioxide 26.5 mmol/L (20.0-27.5); Chloride 101 mmol/L (96-109); Globulin 2.3 g/dL (1.6-3.3); Glucose 98 mg/dL (70-110); Non-African American GFR(CKD) 82.2 (60.0-200.0); Potassium 3.6 mmol/L (3.5-5.5); Sodium 137 mmol/L (135-145); Total Bilirubin <0.15 mg/dL (0.30-1.20); Total Protein 5.7 g/dL (6.2-8.2)
[2022-05-17] MEDS ORDERED: VANCOMYCIN TROUGH DUE 1 EACH MISC MISCELLANE ONE (12:00)
--- NOTE | 2022-05-17 12:11 | P.PN ---
Subjective Progress Note Date: 05/17/22 This is a pleasant 86 years old -[place]ian female with past medical history of multiple problems as below including COPD and asthma She presents because of worsening dyspnea over the last 3-4 days with cough and yellowish phlegm and chest pain with coughing. She also has diarrhea and low appetite with some abdominal pain which is improved now. No urinary complaints, no headache or dizziness or weakness or numbness. She quit smoking about 20 years ago. Occasional alcohol and no illicit drugs. Her left hand and wrist are swollen from an infiltrated IV, denies trauma, she has good and good. She states she has history of irregular heart beat and she is on Eliquis and follow-up Dr. Dietz On admission she had a fever of 100.1. She is saturating 97% on 3 L oxygen via nasal cannula Labs showed leukocytosis of 17.9 . INR and BMP and Liver Enzymes Are Unremarkable. Troponin Is Negative Coronavirus Detected EKG showing atrial fibrillation's with RVR at 140 In the emergency room patient was started on ceftriaxone and Zithromax 10 1 continued on home dose of Eliquis and dexamethasone LDH is normal for 38, CRP is elevated at 8.2. ProBNP is low 311. D-dimer 0.8. 05/15/2022 Patient today feels improvement she says her breathing easier but she coughs a lot She is saturating well on 3-4 L via nasal cannula, oxygen saturation 95-97% She has leukocytosis of 21,000, hemoglobin 11.5. Patient has positive blood culture for Streptococcus pneumoniae, currently she is kept on ceftriaxone 2 g daily Azithromycin and vancomycin were discontinued with Chest x-ray shows COPD with improvement of bibasilar infiltrates Patient tolerance that well. Vital signs stable. We can discontinue the normal saline at 50 mL/h 05/16. Patient seen and examined. Continues to complain or weakness. Patient has been afebrile. Having diarrhea 05/17. Patient seen and examined. Case discussed with nursing staff. Vital signs stable. No acute issues overnight. REVIEW OF SYSTEMS: CONSTITUTIONAL: No fever, no malaise,. CARDIOVASCULAR: No chest pain, no palpitations, no syncope. PULMONARY: No shortness of breath, no cough, GASTROINTESTINAL: no nausea, no vomiting, no abdominal pain. NEUROLOGICAL: No headaches, no weakness, PHYSICAL EXAMINATION: GENERAL: The patient is alert and oriented x3, not in any acute distress. Well developed, well nourished. HEENT: Pupils are round and equally reacting to light. EOMI. No scleral icterus. No conjunctival pallor. Normocephalic, atraumatic. No pharyngeal erythema. No thyromegaly. CARDIOVASCULAR: S1 and S2 present. No murmurs, rubs, or gallops. PULMONARY: Coarse breath some bilaterally, no wheeze ABDOMEN: Soft, nontender, nondistended, normoactive bowel sounds. No palpable organomegaly. MUSCULOSKELETAL: No joint swelling or deformity. EXTREMITIES: No cyanosis, clubbing, or pedal edema. NEUROLOGICAL: Gross neurological examination did not reveal any focal deficits. SKIN: No rashes. Assessment and plan Bacterial pneumonia Acute hypoxic respiratory failure sepsis with fever and leukocytosis Streptococcus pneumoniae bacteremia History of COVID-19 infection Atrial fibrillation's with RVR, POA Covid infection without increased inflammatory markers Acute COPD/asthma exacerbation Hypertension Hyperlipidemia Hearing difficulty History of osteoarthritis History of peptic ulcer, stomach ulcer History of liver disease Plan: Monitor vital signs. Monitor CBC Continue oxygen supplementation Aggressive bronchopulmonary hygiene Follow-up on blood cultures Continue ceftriaxone and vancomycin Follow-up in ID recommendations follow-up on pulmonary recommendations DVT prophylaxis: Eliquis Objective - Vital Signs Vital signs: Vital Signs Temp 99.6 F 05/17/22 08:00 Pulse 80 05/17/22 08:00 Resp 17 05/17/22 08:00 BP 178/84 05/17/22 08:00 Pulse Ox 96 05/17/22 08:00 FiO2 Intake & Output 05/16/22 05/17/22 05/17/22 18:59 06:59 18:59 Intake Total 128 Balance 128 Intake: IV 10 Invasive Line 2 10 Oral 118 Other: Voiding Method Toilet Toilet Toilet # Voids 4 4 # Bowel Movements 0 - Labs CBC & Chem 7: 05/17/22 07:11 05/17/22 07:11 Labs: Abnormal Lab Results - Last 24 Hours (Table) 05/17/22 05/17/22 Range/Units 07:11 07:11 WBC 14.28 H (4.50-10.00) X 10*3/uL RBC 3.88 L (4.10-5.20) X 10*6/uL Hct 36.8 L (37.2-46.3) % Plt Count 674 H (140-440) X 10*3/uL Anion Gap 9.50 L (10.00-18.00) mmol/L BUN 8.9 L (9.0-27.0) mg/dL Total Bilirubin <0.15 L (0.30-1.20) mg/dL Total Protein 5.7 L (6.2-8.2) g/dL Albumin 3.3 L (3.8-4.9) g/dL Albumin/Globulin Ratio 1.43 L (1.60-3.17) g/dL Microbiology - Last 24 Hours (Table) 05/15/22 00:10 Gram Stain - Final Sputum Sputum Culture - Final 05/15/22 05:11 Blood Culture - Preliminary Blood No Growth after 48 hours 05/14/22 03:38 Blood Culture Gram Stain - Preliminary Blood Blood Culture - Preliminary Streptococcus pneumoniae
[2022-05-17 14:19] LABS: Appearance,Urine Clear (Clear); Bilirubin,Urine Negative (Negative); Blood,Urine Negative (Negative); Color,Urine Colorless; Glucose,Urine (UA) Negative (Negative); Ketones,Urine Negative (Negative); Leukocyte Esterase,Urine Negative (Negative); Nitrite,Urine Negative (Negative); Protein,Urine Negative (Negative); Specific Gravity,Urine 1.009 (1.001-1.035); Urobilinogen,Urine <2.0 mg/dL (<2.0)
--- NOTE | 2022-05-17 14:45 | P.PN ---
Subjective Progress Note Date: 05/17/22 Principal diagnosis: Acute hypoxic respiratory failure secondary to Streptococcus pneumoniae pneumonia This is a very pleasant 86-year-old female patient who has a history of hype rtension, previous pneumonia secondary to Pseudomonas, recent COVID-19 infection approximately one month ago treated with Paxlovid, severe chronic obstructive pulmonary disease with advanced bullous emphysema maintained on Trelegy and albuterol in the outpatient setting. FEV1 value 1.36 L or 72% of predicted. She presented here to the emergency room yesterday with a 3-4 day history of nausea, vomiting and diarrhea. Occasional shortness of breath, green productive sputum. Chest x-ray shows infiltrate/atelectasis of the lung bases. New compared to recent chest x-ray on 04/28/2022. White count 19.1. Hemoglobin 12.8. D-dimer 0.88. Sodium 138. Potassium 3.7. BUN 11. Creatinine 0.7. GFR greater than 90. LDH 438. Troponin negative times one. ProBNP 311. Pro-calcitonin 0.73. Ventura virus detected. Influenza screen negative. She is seen today in consultation on the regular medical floor. She is currently sitting up in bed. Awake and alert. She is having ongoing issues with vomiting and diarrhea. No worsening shortness of breath, cough or congestion. 18 O2 saturation in the mid to upper 90s on 4 L/m per nasal cannula. Currently afebrile. Hemodynamically stable. She's been initiated on antibiotics in the form of ceftriaxone and azithromycin. Initiated on Decadron and vitamin supplements. Continue on Symbicort, Spiriva and albuterol inhalers. Anticoagulated with Eliquis. The patient is seen today 05/15/2022 in follow-up on the regular medical floor. She is currently sitting up in bed. Awake and alert in no acute distress. Doing quite a bit better today compared to yesterday. No nausea or vomiting. No diarrhea. No worsening shortness of breath, cough or congestion. Maintaining O2 saturations in the upper 90s on 4 L/m per nasal cannula. She's been afebrile. Hemodynamically stable. Chest x-ray shows evidence of COPD with improving bibasilar infiltrates. Blood cultures are positive for Streptococcus pneumoniae. She's been initiated on vancomycin in addition to the ceftriaxone. Sensitivity pending. White count 21.7. Hemoglobin 11.5. Sodium 138. Potassium 3.9. BUN 13. Creatinine 0.71. Pro-calcitonin 0.73. Legionella antigen negati ve. She is on bronchodilators. Continued on Decadron and multivitamins. Anticoagulated with Eliquis. The patient is seen today 05/16/2022 in follow-up on the regular medical floor. She is awake and alert in no acute distress. Feeling better today compared to yesterday. She did have some diarrhea earlier this morning. No worsening shortness of breath, cough or congestion. No nausea or vomiting. Blood cultures were positive for Streptococcus pneumoniae. Follow-up blood culture pending. Sputum culture pending. She is on bronchodilators. Continued on Decadron and multivitamins. Anticoagulated with Eliquis. Remains on ceftriaxone. Reevaluated today on 06/04, patient continues to feel better, however considering her positive blood cultures, patient remains on ceftriaxone, and that being handled by the infectious disease on the case. Patient received ceftriaxone this morning, and she is to receive more as ordered by infectious disease. I instructed the nurse to call the infectious disease specialist and decide whether the patient could be transitioned to oral antibiotics, this way we could potentially consider discharge planning in the next 24 hours. Leukocytosis is improving, patient never really had a true pulmonary symptoms on presentation, her symptoms were mostly GI in nature. Objective - Vital Signs Vital signs: Vital Signs Temp 98.9 F 05/17/22 13:39 Pulse 82 05/17/22 13:39 Resp 17 05/17/22 13:39 BP 167/81 05/17/22 13:39 Pulse Ox 90 L 05/17/22 13:39 FiO2 Intake & Output 05/16/22 05/17/22 05/17/22 18:59 06:59 18:59 Intake Total 128 Balance 128 Intake: IV 10 Invasive Line 2 10 Oral 118 Other: Voiding Method Toilet Toilet Toilet # Voids 4 4 # Bowel Movements 0 - Exam Physical Exam: Revealed a 86-year-old female in no distress, on room air, O2 sats is 90%, and on 2 L is 96%. HEENT:[Neck is supple.] [No neck masses.] [No thyromegaly.] [No JVD.] Chest: [Clear throughout, no crackles, no rhonchi, no wheezes.] Cardiac Exam: [Normal S1 and S2, no S3 gallop, no murmur.] Abdomen: [Soft, nontender, no megaly, no rebound, no guarding, normal bowel sounds.] Extremities: [No clubbing, no edema, no cyanosis.] Neurological Exam: [No focal neurologic deficit.] Psychiatric: Normal mood affect and normal mental status examination. Skin: No rashes. - Labs CBC & Chem 7: 05/17/22 07:11 05/17/22 07:11 Labs: Abnormal Lab Results - Last 24 Hours (Table) 05/17/22 05/17/22 Range/Units 07:11 07:11 WBC 14.28 H (4.50-10.00) X 10*3/uL RBC 3.88 L (4.10-5.20) X 10*6/uL Hct 36.8 L (37.2-46.3) % Plt Count 674 H (140-440) X 10*3/uL Anion Gap 9.50 L (10.00-18.00) mmol/L BUN 8.9 L (9.0-27.0) mg/dL Total Bilirubin <0.15 L (0.30-1.20) mg/dL Total Protein 5.7 L (6.2-8.2) g/dL Albumin 3.3 L (3.8-4.9) g/dL Albumin/Globulin Ratio 1.43 L (1.60-3.17) g/dL Microbiology - Last 24 Hours (Table) 05/14/22 03:15 Blood Culture Gram Stain - Final Blood Blood Culture - Final Streptococcus pneumoniae 05/14/22 03:38 Blood Culture Gram Stain - Final Blood Blood Culture - Final Streptococcus pneumoniae 05/15/22 00:10 Gram Stain - Final Sputum Sputum Culture - Final 05/15/22 05:11 Blood Culture - Preliminary Blood No Growth after 48 hours Assessment and Plan Assessment: Impression: Acute hypoxic respiratory failure secondary to Streptococcus pneumonia and pneumonia Acute exacerbation of COPD Recent history of COVID-19 infection Acute bacteremia secondary to Streptococcus pneumonia Previous history of pseudomonas aeruginosa pneumonia Benign essential hypertension GERD without esophagitis Chronic atrial fibrillation, anticoagulated History of peptic ulcer disease Dyslipidemia Recommendation: Continue antibiotics/ceftriaxone, ID may consider transitioning to oral antibiotics Continue bronchodilators. Continue to titrate oxygen accordingly Continue cardiac meds including eliquis Will continue to follow Time with Patient: Less than 30
[2022-05-17] MEDS ORDERED: guaiFENesin-DM 100-10MG/5ML 10 ML CUP PO PRN (20:20)
--- NOTE | 2022-05-17 23:17 | P.PN ---
Subjective Progress Note Date: 05/17/22 Principal diagnosis: Pneumonia and bacteremia Patient is a 86-year-old -[place] female with a past medical history significant for hypertension COPD recent diagnosis of covid 19 presenting to the hospital with increasing shortness of cough and pneumonia and did have a pos itive blood culture with strep pneumo. On today's evaluation and is 05/17/2022 patient remains to be afebrile, patient is breathing comfortably on nasal cannula oxygen, the patient cough has decreased in intensity, the patient denies any nausea no vomiting and no diarrhea Objective - Vital Signs Vital signs: Vital Signs Temp 99.6 F 05/17/22 08:00 Pulse 80 05/17/22 08:00 Resp 17 05/17/22 08:00 BP 178/84 05/17/22 08:00 Pulse Ox 96 05/17/22 08:00 FiO2 Intake & Output 05/16/22 05/17/22 05/17/22 18:59 06:59 18:59 Intake Total 128 Balance 128 Intake: IV 10 Invasive Line 2 10 Oral 118 Other: Voiding Method Toilet Toilet Toilet # Voids 4 4 # Bowel Movements 0 - Exam GENERAL DESCRIPTION: An elderly female lying in bed in no distress RESPIRATORY SYSTEM: Unlabored breathing , decreased breath sounds at bases HEART: S1 S2 regular rate and rhythm , ABDOMEN: Soft , no tenderness EXTREMITIES: No edema feet - Labs CBC & Chem 7: 05/17/22 07:11 05/17/22 07:11 Labs: Abnormal Lab Results - Last 24 Hours (Table) 05/17/22 05/17/22 Range/Units 07:11 07:11 WBC 14.28 H (4.50-10.00) X 10*3/uL RBC 3.88 L (4.10-5.20) X 10*6/uL Hct 36.8 L (37.2-46.3) % Plt Count 674 H (140-440) X 10*3/uL Anion Gap 9.50 L (10.00-18.00) mmol/L BUN 8.9 L (9.0-27.0) mg/dL Total Bilirubin <0.15 L (0.30-1.20) mg/dL Total Protein 5.7 L (6.2-8.2) g/dL Albumin 3.3 L (3.8-4.9) g/dL Albumin/Globulin Ratio 1.43 L (1.60-3.17) g/dL Microbiology - Last 24 Hours (Table) 05/14/22 03:15 Blood Culture Gram Stain - Final Blood Blood Culture - Final Streptococcus pneumoniae 05/14/22 03:38 Blood Culture Gram Stain - Final Blood Blood Culture - Final Streptococcus pneumoniae 05/15/22 00:10 Gram Stain - Final Sputum Sputum Culture - Final 05/15/22 05:11 Blood Culture - Preliminary Blood No Growth after 48 hours Assessment and Plan (1) Bacteremia Current Visit: Yes Status: Acute Code(s): R78.81 - BACTEREMIA SNOMED Code(s): 5636643 Plan: 1patient presented to hospital with increasing shortness of breath and a cough with greenish sputum production now with evidence of Streptococcus pneumonia bacteremia source likely pneumonia in this patient with bibasilar infiltrate seen on the chest x-ray. 2patient who did have a positive COVID test however she tested positive beginning of April that has been treated with paxlovid and the current positive test is likely related to that episode rather than reinfection and does not need any specific treatment for it 3 sputum for gram stain culture has been obtained and currently pending 4blood cultures will be repeated and negative so for 5patient to continue Rocephin and vancomycin has been discontinued by pulmonary and monitor clinical course closely Time with Patient: Less than 30
[2022-05-18] MEDS: SODIUM CHLORIDE 0.9% 1,000 ML IV SCH (02:53)
[2022-05-18] MEDS: SYMBICORT 160-4.5 MCG INHALER INHALATION PRN ×2 (09:11→20:49)
[2022-05-18] MEDS: ALBUTEROL HFA INHALER INHALATION PRN ×4 (09:11→20:49)
[2022-05-18] MEDS: TIOTROPIUM 2.5 MCG INHALER INHALATION SCH (09:12)
[2022-05-18 10:00] LABS: HCT 43.2 % (34.0-46.0); Hypochromasia Slight; MCH 31.1 pg (25.0-35.0); MCHC 32.4 g/dL (31.0-37.0); Platelet Count 726 k/uL (150-450); RDW 13.1 % (11.5-15.5); WBC 18.5 k/uL (3.8-10.6)
[2022-05-18] MEDS: DEXAMETHASONE SOD PHOSPHATE 10 MG/ML 1 ML VIAL IVP SCH (10:13)
[2022-05-18] MEDS: FAMOTIDINE 20 MG TAB PO SCH ×2 (10:14→20:31)
[2022-05-18] MEDS: ASCORBIC ACID 500 MG TAB PO SCH (10:14)
[2022-05-18] MEDS: ZINC SULFATE 220 MG CAP PO SCH (10:14)
[2022-05-18] MEDS: METOPROLOL SUCCINATE (ER) 25 MG TAB.ER.24H PO SCH (10:14)
[2022-05-18] MEDS: CHOLECALCIFEROL 25 MCG (1000 IU) TABLET PO SCH (10:14)
[2022-05-18] MEDS: APIXABAN 2.5 MG TABLET PO SCH ×2 (10:14→20:31)
[2022-05-18 10:16] LABS: ALT 30 U/L (4-34); AST 27 U/L (14-36); African American GFR (CKD) >90 (>60 ml/min/1.73 sqM); Albumin 3.8 g/dL (3.5-5.0); Albumin/Globulin Ratio 1.2; Alkaline Phosphatase 88 U/L (38-126); Anion Gap 10 mmol/L; Blood Urea Nitrogen 12 mg/dL (7-17); Calcium 9.2 mg/dL (8.4-10.2); Carbon Dioxide 29 mmol/L (22-30); Chloride 99 mmol/L (98-107); Globulin 3.1 g/dL; Glucose 100 mg/dL (74-99); Non-African American GFR(CKD) 83 (>60 ml/min/1.73 sqM); Potassium 3.9 mmol/L (3.5-5.1); Sodium 138 mmol/L (137-145); Total Bilirubin 0.4 mg/dL (0.2-1.3); Total Protein 6.9 g/dL (6.3-8.2)
[2022-05-18] MEDS: amLODIPine 5 MG TAB PO SCH (13:40)
--- NOTE | 2022-05-18 15:26 | P.PN ---
Subjective Progress Note Date: 05/18/22 This is a very pleasant 86-year-old female patient who has a history of hypertension, previous pneumonia secondary to Pseudomonas, recent COVID-19 infection approximately one month ago treated with Paxlovid, severe chronic obstructive pulmonary disease with advanced bullous emphysema maintained on Trelegy and albuterol in the outpatient setting. FEV1 value 1.36 L or 72% of predicted. She presented here to the emergency room yesterday with a 3-4 day history of nausea, vomiting and diarrhea. Occasional shortness of breath, green productive sputum. Chest x-ray shows infiltrate/atelectasis of the lung bases. New compared to recent chest x-ray on 04/28/2022. White count 19.1. Hemoglobin 12.8. D-dimer 0.88. Sodium 138. Potassium 3.7. BUN 11. Creatinine 0.7. GFR greater than 90. LDH 438. Troponin negative times one. ProBNP 311. Pro- calcitonin 0.73. Ventura virus detected. Influenza screen negative. She is seen today in consultation on the regular medical floor. She is currently si tting up in bed. Awake and alert. She is having ongoing issues with vomiting and diarrhea. No worsening shortness of breath, cough or congestion. 18 O2 saturation in the mid to upper 90s on 4 L/m per nasal cannula. Currently afebrile. Hemodynamically stable. She's been initiated on antibiotics in the form of ceftriaxone and azithromycin. Initiated on Decadron and vitamin supplements. Continue on Symbicort, Spiriva and albuterol inhalers. Anticoagulated with Eliquis. The patient is seen today 05/15/2022 in follow-up on the regular medical floor. She is currently sitting up in bed. Awake and alert in no acute distress. Doing quite a bit better today compared to yesterday. No nausea or vomiting. No diarrhea. No worsening shortness of breath, cough or congestion. Maintaining O2 saturations in the upper 90s on 4 L/m per nasal cannula. She's been afebrile. Hemodynamically stable. Chest x-ray shows evidence of COPD with improving bibasilar infiltrates. Blood cultures are positive for Streptococcus pneumoniae. She's been initiated on vancomycin in addition to the ceftriaxone. Sensitivity pending. White count 21.7. Hemoglobin 11.5. Sodium 138. Potassium 3.9. BUN 13. Creatinine 0.71. Pro-calcitonin 0.73. Legionella antigen negative. She is on bronchodilators. Continued on Decadron and multivitamins. Anticoagulated with Eliquis. The patient is seen today 05/16/2022 in follow-up on the regular medical floor. She is awake and alert in no acute distress. Feeling better today compared to yesterday. She did have some diarrhea earlier this morning. No worsening shortness of breath, cough or congestion. No nausea or vomiting. Blood cultures were positive for Streptococcus pneumoniae. Follow-up blood culture pending. Sputum culture pending. She is on bronchodilators. Continued on Decadron and multivitamins. Anticoagulated with Eliquis. Remains on ceftriaxone. The patient is seen today 05/18/2022 in follow-up on the regular medical floor. She is currently sitting up in a chair at the bedside. Awake and alert in no acute distress. Continues to improve gradually. She is maintaining O2 saturations in the mid 90s on 2 L/m per nasal cannula. She's been afebrile. Hemodynamically stable. Blood cultures were positive for Streptococcus pneumoniae. Follow-up blood cultures revealing no growth. White count 18.5. Hemoglobin 14.0. Sodium 138. Potassium 3.9. BUN 12. Creatinine 0.63. Glucose 100. Urinalysis clean. She is currently on ceftriaxone per ID services. Continued on bronchodilators. Anticoagulated with Eliquis. Objective - Vital Signs Vital signs: Vital Signs Temp 97.3 F L 05/18/22 13:32 Pulse 81 05/18/22 13:32 Resp 16 05/18/22 13:32 BP 148/80 05/18/22 13:32 Pulse Ox 97 05/18/22 13:32 FiO2 Intake & Output 05/17/22 05/18/22 05/18/22 18:59 06:59 18:59 Other: Voiding Method Toilet Toilet # Voids 5 2 - Exam GENERAL EXAM: Alert, 86-year-old female patient, on 2 L nasal cannula, comfortable in no apparent distress. HEAD: Normocephalic. EYES: Normal reaction of pupils, equal size. NOSE: Clear with pink turbinates. THROAT: No erythema or exudates. NECK: No masses, no JVD. CHEST: No chest wall deformity. LUNGS: Equal air entry with crackles in the bilateral bases. CVS: S1 and S2 normal with no audible murmur, regular rhythm. ABDOMEN: No hepatosplenomegaly, normal bowel sounds, no guarding or rigidity. SPINE: No scoliosis or deformity SKIN: No rashes CENTRAL NERVOUS SYSTEM: No focal deficits, tone is normal in all 4 extremities. EXTREMITIES: There is no peripheral edema. No clubbing, no cyanosis. Peripheral pulses are intact. - Labs CBC & Chem 7: 05/18/22 08:48 05/18/22 08:48 Labs: Abnormal Lab Results - Last 24 Hours (Table) 05/18/22 05/18/22 Range/Units 08:48 08:48 WBC 18.5 H (3.8-10.6) k/uL Plt Count 726 H (150-450) k/uL Glucose 100 H (74-99) mg/dL Microbiology - Last 24 Hours (Table) 05/15/22 05:11 Blood Culture - Preliminary Blood No Growth after 72 hours 05/14/22 03:15 Blood Culture Gram Stain - Final Blood Blood Culture - Final Streptococcus pneumoniae 05/14/22 03:38 Blood Culture Gram Stain - Final Blood Blood Culture - Final Streptococcus pneumoniae Assessment and Plan Assessment: Acute hypoxemic respiratory failure secondary to an acute community-acquired pneumonia. Pro-calcitonin 0.73. Legionella antigen negative Acute exacerbation of chronic obstructive pulmonary disease secondary to above. Bacteremia secondary to Streptococcus pneumoniae. Currently on ceftriaxone. Acute COVID-19 infection, with previous infection about one month ago treated with PaxLovid and decadron in the outpatient setting. The patient has been vaccinated and boosted Previous history of pseudomonas aeruginosa pneumonia Hypertension Arthritis Gastroesophageal reflux disease Chronic rhinitis Atrial fibrillation, anticoagulated with Eliquis Hyperlipidemia Peptic ulcer disease Plan: The patient was seen and evaluated Medications and labs reviewed Continue the current treatment plan Antibiotics per ID services We will continue to follow I have personally seen and examined the patient, performed the documentation and the assessment and plan as written. Number of minutes spent on the visit: 10.
--- NOTE | 2022-05-18 20:18 | P.PN ---
Subjective This is a pleasant 86 years old -[place] female with past medical history of multiple problems as below including COPD and asthma She presents because of worsening dyspnea over the last 3-4 days with cough and yellowish phlegm and chest pain with coughing. She also has diarrhea and low appetite with some abdominal pain which is improved now. No urinary complaints, no headache or dizziness or weakness or numbness. She quit smoking about 20 years ago. Occasional alcohol and no illicit drugs. Her left hand and wrist are swollen from an infiltrated IV, denies trauma, she has good and good. She states she has history of irregular heart beat and she is on Eliquis and follow-up Dr. Dietz On admission she had a fever of 100.1. She is saturating 97% on 3 L oxygen via nasal cannula Labs showed leukocytosis of 17.9 . INR and BMP and Liver Enzymes Are Unremarkable. Troponin Is Negative Coronavirus Detected EKG showing atrial fibrillation's with RVR at 140 In the emergency room patient was started on ceftriaxone and Zithromax 10 1 continued on home dose of Eliquis and dexamethasone LDH is normal for 38, CRP is elevated at 8.2. ProBNP is low 311. D-dimer 0.8. 05/15/2022 Patient today feels improvement she says her breathing easier but she coughs a lot She is saturating well on 3-4 L via nasal cannula, oxygen saturation 95-97% She has leukocytosis of 21,000, hemoglobin 11.5. Patient has positive blood culture for Streptococcus pneumoniae, currently she is kept on ceftriaxone 2 g daily Azithromycin and vancomycin were discontinued with Chest x-ray shows COPD with improvement of bibasilar infiltrates Patient tolerance that well. Vital signs stable. We can discontinue the normal saline at 50 mL/h 05/18/2022, resume the care of the patient today Patient's respiratory symptoms significantly improved, she denies dyspnea or exertional dyspnea, no chest pain and she has little cough. She denies any other complaints. Blood pressure is slightly elevated while she is on steroids as well as mild leukocytosis, blood pressure improved with Norvasc 5 mg. She remains on IV ceftriaxone for Streptococcus pneumoniae bacteremia and pneumonia. Possible discharge in 24-48 hours she keeps improving Objective - Vital Signs Vital signs: Vital Signs Temp 97.3 F L 05/18/22 13:32 Pulse 81 05/18/22 13:32 Resp 16 05/18/22 13:32 BP 148/80 05/18/22 13:32 Pulse Ox 97 05/18/22 13:32 FiO2 Intake & Output 05/17/22 05/18/22 05/18/22 18:59 06:59 18:59 Other: Voiding Method Toilet Toilet # Voids 5 2 4 - Exam GENERAL: The patient is alert and oriented x3, not in any acute distress. Well developed, well nourished. HEENT: Pupils are round and equally reacting to light. EOMI. No scleral icterus. No conjunctival pallor. Normocephalic, atraumatic. No pharyngeal erythema. No thyromegaly. CARDIOVASCULAR: S1 and S2 present. No murmurs, rubs, or gallops. PULMONARY: Chest is clear to auscultation, no wheezing or crackles. ABDOMEN: Soft, nontender, nondistended, normoactive bowel sounds. No palpable organomegaly. MUSCULOSKELETAL: No joint swelling or deformity. EXTREMITIES: No cyanosis, clubbing, or pedal edema. NEUROLOGICAL: Gross neurological examination did not reveal any focal deficits. SKIN: No rashes. no petechiae. - Labs CBC & Chem 7: 05/18/22 08:48 05/18/22 08:48 Labs: Abnormal Lab Results - Last 24 Hours (Table) 05/18/22 05/18/22 Range/Units 08:48 08:48 WBC 18.5 H (3.8-10.6) k/uL Plt Count 726 H (150-450) k/uL Glucose 100 H (74-99) mg/dL Microbiology - Last 24 Hours (Table) 05/15/22 05:11 Blood Culture - Preliminary Blood No Growth after 72 hours 05/14/22 03:15 Blood Culture Gram Stain - Final Blood Blood Culture - Final Streptococcus pneumoniae 05/14/22 03:38 Blood Culture Gram Stain - Final Blood Blood Culture - Final Streptococcus pneumoniae Assessment and Plan Assessment: Bilateral infiltrates in both lung dutta could be atelectasis versus Bilateral Covid pneumonia versus gram-negative pneumonia, most likely it's a gram-negative pneumonia Mild Acute hypoxic respiratory failure sepsis with fever and leukocytosis Streptococcus pneumoniae bacteremia Atrial fibrillation's with RVR, POA Covid infection without increased inflammatory markers Acute COPD/asthma exacerbation Hypertension Hyperlipidemia Hearing difficulty History of osteoarthritis History of peptic ulcer, stomach ulcer History of liver disease Plan: Antibiotics was adjusted to ceftriaxone Monitor white cell count and oxygen status Continue with vitamin C, vitamin D and zinc Pulmonary consult Labs and medication were reviewed.. Continue same treatment. Continue with symptomatic treatment. Resume home medication. Monitor labs and vitals. DVT and GI prophylaxis. Further recommendations as per clinical course of the patient DVT prophylaxis: Eliquis GI Prophylaxis: Pepcid PT/OT: Pending Prognosis is guarded
[2022-05-19 03:13] VITALS: RESP 16
[2022-05-19] MEDS: amLODIPine 5 MG TAB PO SCH (07:33)
[2022-05-19] MEDS: FAMOTIDINE 20 MG TAB PO SCH (07:33)
[2022-05-19] MEDS: ASCORBIC ACID 500 MG TAB PO SCH (07:33)
[2022-05-19] MEDS: METOPROLOL SUCCINATE (ER) 25 MG TAB.ER.24H PO SCH (07:33)
[2022-05-19] MEDS: CHOLECALCIFEROL 25 MCG (1000 IU) TABLET PO SCH (07:33)
[2022-05-19] MEDS: APIXABAN 2.5 MG TABLET PO SCH (07:33)
[2022-05-19] MEDS: ZINC SULFATE 220 MG CAP PO SCH (07:33)
[2022-05-19] MEDS: ALBUTEROL HFA INHALER INHALATION PRN ×2 (08:14→11:27)
[2022-05-19] MEDS: TIOTROPIUM 2.5 MCG INHALER INHALATION SCH (08:14)
[2022-05-19] MEDS: SYMBICORT 160-4.5 MCG INHALER INHALATION PRN (08:14)
[2022-05-19] MEDS: DEXAMETHASONE SOD PHOSPHATE 10 MG/ML 1 ML VIAL IVP SCH (09:51)
--- NOTE | 2022-05-19 10:30 | P.CRDCN ---
History of Present Illness History of present illness: Please see full dictation ashutosh practitioner [facility] consulted regarding a question about the indication for Sathya 2.5 mg twice daily The patient's medical record states glucose 2.5 g twice daily but apparently she does not take it at home However this was a matter of great confusion to the admitting physician This matter Weston easily sorted out since May 14 by a simple phone call to her primary care physician confirming whether or not she has atrial fibrillation or any clear-cut need for [place] From a cardiac and electrophysiology standpoint I am unable to clarify this matter The decision on whether she goes home on eliquis on the primary care physician/admitting physician Past Medical History Past Medical History: Asthma, COPD, Eye Disorder, Hearing Disorder / Deafness, Hyperlipidemia, Hypertension, Liver Disease, Osteoarthritis (OA) Additional Past Medical History / Comment(s): Hx stomach ulcer, cysts on liver., urinary leakage., small hiatal hernia, diverticulosis, tinnitus , Pneumonia 202 0., Oxygen @ 2 L PRN., environmental allergies, back pain., 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 Last Myocardial Infarction Date:: 40 years ago History of Any Multi-Drug Resistant Organisms: None Reported Past Surgical History: Cholecystectomy, Hysterectomy, Orthopedic Surgery Additional Past Surgical History / Comment(s): KNEE arthroscopy, COLONOSCOPY- LARGE POLYP REMOVED, EGD, cataracts, Right TKA (10/21/21) Past Anesthesia/Blood Transfusion Reactions: No Reported Reaction Additional Past Anesthesia/Blood Transfusion Reaction / Comment(s): No hx blood transfusion. Past Psychological History: No Psychological Hx Reported Smoking Status: Former smoker Past Alcohol Use History: Occasional Past Drug Use History: None Reported - Past Family History Sister(s) Family Medical History: Cancer Additional Family Medical History / Comment(s): #1 sister colon cancer, # 2 sister lung cancer. Father Family Medical History: Cancer Additional Family Medical History / Comment(s): Prostate cancer. Mother Family Medical History: Asthma Additional Family Medical History / Comment(s): Heart problems. Medications and Allergies Home Medications Medication Instructions Recorded Confirmed Type Losartan Potassium 100 mg PO DAILY 10/30/14 05/14/22 History Albuterol Inhaler [Ventolin Hfa 2 puff INHALATION RT-Q4H PRN 03/17/21 05/14/22 History Inhaler] Fluticasone Propion/Salmeterol 1 puff INHALATION RT-BID PRN 10/20/21 05/14/22 History [Advair 500-50 Diskus] Rosuvastatin [Crestor] 10 mg PO DAILY 10/20/21 05/14/22 History Tiotropium 18 Mcg/Puff [Spiriva] 1 puff INHALATION RT-DAILY 10/20/21 05/14/22 History Albuterol Nebulized [Ventolin 2.5 mg INHALATION RT-QID 11/07/21 05/14/22 History Nebulized] Fluticasone/Umeclidin/Vilanter 1 puff INHALATION RT-DAILY 05/14/22 05/14/22 History [Trelegy Ellipta 100-62.5-25] Ipratropium-Albuterol Nebulize 3 ml INHALATION RT-Q4H 05/14/22 05/14/22 History [Duoneb 0.5 mg-3 mg/3 ml Soln] Metoprolol Succinate (ER) [Toprol 25 mg PO DAILY 05/14/22 05/14/22 History Xl] Mirtazapine 7.5 mg PO DIRECTED 05/14/22 05/14/22 History Montelukast [Singulair] 10 mg PO DAILY 05/14/22 05/14/22 History guaiFENesin-Coden 100-10MG/5ML 5 ml PO Q6H PRN 05/14/22 05/14/22 History [Robitussin AC] predniSONE 5 mg PO DAILY 05/14/22 05/14/22 History Apixaban [Eliquis] 2.5 mg PO BID #60 tab 05/18/22 Rx Allergies Allergy/AdvReac Type Severity Reaction Status Date / Time hydrocodone bitartrate AdvReac states Verified 03/14/22 12:03 [From Vicodin] "doesn't make me feel good" prednisone AdvReac Hallucinati Verified 03/14/22 12:03 ons Physical Exam Vitals: Vital Signs Temp Pulse Resp BP Pulse Ox FiO2 05/19/22 08:15 91 L 05/19/22 07:34 98.1 F 82 16 163/92 91 L 05/19/22 02:00 97.6 F 79 16 162/83 94 L 05/18/22 20:49 94 L 21 05/18/22 20:00 98.0 F 79 17 143/79 98 05/18/22 13:32 97.3 F L 81 16 148/80 97 Intake and Output 05/18/22 05/19/22 05/19/22 22:59 06:59 14:59 Other: Voiding Method Toilet # Voids 4 4 Results 05/18/22 08:48 05/18/22 08:48 Current Medications Generic Name Dose Route Start Last Admin Trade Name Freq PRN Reason Stop Dose Admin Acetaminophen 325 mg 05/14/22 10:15 Acetaminophen Tab 325 Mg Tab PO Q6HR PRN Fever and/ or Mild Pain Albuterol Sulfate 2 puff 05/14/22 05:35 05/19/22 08:14 Albuterol Hfa Inhaler INHALATION 2 puff RT-QID PRN Administration Shortness Of Breath Or Wheezing Amlodipine Besylate 5 mg 05/18/22 13:30 05/19/22 07:33 Amlodipine 5 Mg Tab PO 5 mg DAILY KENDAL Administration Apixaban 2.5 mg 05/14/22 09:00 05/19/22 07:33 Apixaban 2.5 Mg Tablet PO 2.5 mg BID KENDAL Administration Protocol Ascorbic Acid 1,000 mg 05/14/22 09:00 05/19/22 07:33 Ascorbic Acid 500 Mg Tab PO 1,000 mg DAILY KENDAL Administration Budesonide/Formoterol Fumarate 2 puff 05/14/22 05:36 05/19/22 08:14 Symbicort 160-4.5 Mcg Inhaler INHALATION 2 puff RT-BID PRN Administration Shortness Of Breath Cholecalciferol 50 mcg 05/14/22 09:00 05/19/22 07:33 Cholecalciferol 25 Mcg (1000 Iu) Tablet PO 50 mcg DAILY KENDAL Administration Dexamethasone Sodium Phosphate 6 mg 05/14/22 09:00 05/19/22 09:51 Dexamethasone Sod Phosphate 10 Mg/Ml 1 Ml Vial IVP Not Given DAILY [facility] Famotidine 20 mg 05/14/22 21:00 05/19/22 07:33 Famotidine 20 Mg Tab PO 20 mg BID KENDAL Administration Guaifenesin/Dextromethorphan 10 ml 05/17/22 20:20 Guaifenesin-Dm 100-10mg/5ml 10 Ml Cup PO Q6HR PRN Cough Ceftriaxone Sodium 2 gm/ 50 mls @ 100 mls/hr 05/18/22 09:00 05/19/22 07:33 Sodium Chloride IVPB 100 mls/hr Q24HR KENDAL Administration Protocol Metoprolol Succinate 25 mg 05/14/22 10:30 05/19/22 07:33 Metoprolol Succinate (Er) 25 Mg Tab.Er.24h PO 25 mg DAILY KENDAL Administration Miscellaneous Information 1 each 05/14/22 04:37 Pneumonia Protocol Utilized 1 Each Misc PO ONCE PRN Per Protocol Promethazine HCl 12.5 mg 05/14/22 10:14 Promethazine 25 Mg Tab PO Q6HR PRN Nausea And Vomiting Tiotropium [place] 2 puff 05/18/22 08:00 05/19/22 08:14 Tiotropium 2.5 Mcg Inhaler INHALATION 2 puff RT-DAILY@0800 KENDAL Administration Tramadol HCl 25 mg 05/14/22 10:15 Tramadol 50 Mg Tab PO QID PRN Pain Zinc Sulfate 220 mg 05/14/22 09:00 05/19/22 07:33 Zinc Sulfate 220 Mg Cap PO 220 mg DAILY KENDAL Administration Intake and Output 05/18/22 05/19/22 05/19/22 22:59 06:59 14:59 Other: Voiding Method Toilet # Voids 4 4 05/18/22 08:48 05/18/22 08:48
[2022-05-19 14:23] VITALS: BP 161/78; PULSE 84; TEMP 98.8
[2022-05-19 14:41] VITALS: BMI 26.9
--- NOTE | 2022-05-19 14:57 | P.PN ---
Subjective Progress Note Date: 05/19/22 This is a very pleasant 86-year-old female patient who has a history of hypertension, previous pneumonia secondary to Pseudomonas, recent COVID-19 infection approximately one month ago treated with Paxlovid, severe chronic obstructive pulmonary disease with advanced bullous emphysema maintained on Trelegy and albuterol in the outpatient setting. FEV1 value 1.36 L or 72% of predicted. She presented here to the emergency room yesterday with a 3-4 day history of nausea, vomiting and diarrhea. Occasional shortness of breath, green productive sputum. Chest x-ray shows infiltrate/atelectasis of the lung bases. New compared to recent chest x-ray on 04/28/2022. White count 19.1. Hemoglobin 12.8. D-dimer 0.88. Sodium 138. Potassium 3.7. BUN 11. Creatinine 0.7. GFR greater than 90. LDH 438. Troponin negative times one. ProBNP 311. Pro- calcitonin 0.73. [place] virus detected. Influenza screen negative. She is seen today in consultation on the regular medical floor. She is currently si tting up in bed. Awake and alert. She is having ongoing issues with vomiting and diarrhea. No worsening shortness of breath, cough or congestion. 18 O2 saturation in the mid to upper 90s on 4 L/m per nasal cannula. Currently afebrile. Hemodynamically stable. She's been initiated on antibiotics in the form of ceftriaxone and azithromycin. Initiated on Decadron and vitamin supplements. Continue on Symbicort, Spiriva and albuterol inhalers. Anticoagulated with Eliquis. The patient is seen today 05/15/2022 in follow-up on the regular medical floor. She is currently sitting up in bed. Awake and alert in no acute distress. Doing quite a bit better today compared to yesterday. No nausea or vomiting. No diarrhea. No worsening shortness of breath, cough or congestion. Maintaining O2 saturations in the upper 90s on 4 L/m per nasal cannula. She's been afebrile. Hemodynamically stable. Chest x-ray shows evidence of COPD with improving bibasilar infiltrates. Blood cultures are positive for Streptococcus pneumoniae. She's been initiated on vancomycin in addition to the ceftriaxone. Sensitivity pending. White count 21.7. Hemoglobin 11.5. Sodium 138. Potassium 3.9. BUN 13. Creatinine 0.71. Pro-calcitonin 0.73. Legionella antigen negative. She is on bronchodilators. Continued on Decadron and multivitamins. Anticoagulated with Eliquis. The patient is seen today 05/16/2022 in follow-up on the regular medical floor. She is awake and alert in no acute distress. Feeling better today compared to yesterday. She did have some diarrhea earlier this morning. No worsening shortness of breath, cough or congestion. No nausea or vomiting. Blood cultures were positive for Streptococcus pneumoniae. Follow-up blood culture pending. Sputum culture pending. She is on bronchodilators. Continued on Decadron and multivitamins. Anticoagulated with Eliquis. Remains on ceftriaxone. The patient is seen today 05/18/2022 in follow-up on the regular medical floor. She is currently sitting up in a chair at the bedside. Awake and alert in no acute distress. Continues to improve gradually. She is maintaining O2 saturations in the mid 90s on 2 L/m per nasal cannula. She's been afebrile. Hemodynamically stable. Blood cultures were positive for Streptococcus pneumoniae. Follow-up blood cultures revealing no growth. White count 18.5. Hemoglobin 14.0. Sodium 138. Potassium 3.9. BUN 12. Creatinine 0.63. Glucose 100. Urinalysis clean. She is currently on ceftriaxone per ID services. Continued on bronchodilators. Anticoagulated with Eliquis. The patient is seen today 05/19/2022 in follow-up on the regular medical floor. She is awake and alert in no acute distress. Maintaining O2 saturations in the 90s on room air. She continues on Symbicort, Spiriva and albuterol. Continued on Decadron. Vitamin supplements. Antibiotics in the form of ceftriaxone. Follow-up blood cultures revealing no growth. Sputum culture revealed no growth. Her Eliquis has been discontinued per medicine. Objective - Vital Signs Vital signs: Vital Signs Temp 98.8 F 05/19/22 14:00 Pulse 84 05/19/22 14:00 Resp 16 05/19/22 14:00 BP 161/78 05/19/22 14:00 Pulse Ox 92 L 05/19/22 14:00 FiO2 21 05/18/22 20:49 Intake & Output 05/18/22 05/19/22 05/19/22 18:59 06:59 18:59 Weight 71.214 kg Other: Voiding Method Toilet # Voids 4 4 2 - Exam GENERAL EXAM: Alert, 86-year-old female patient, on room air, comfortable in no apparent distress. HEAD: Normocephalic. EYES: Normal reaction of pupils, equal size. NOSE: Clear with pink turbinates. THROAT: No erythema or exudates. NECK: No masses, no JVD. CHEST: No chest wall deformity. LUNGS: Equal air entry with crackles in the bilateral bases. CVS: S1 and S2 normal with no audible murmur, regular rhythm. ABDOMEN: No hepatosplenomegaly, normal bowel sounds, no guarding or rigidity. SPINE: No scoliosis or deformity SKIN: No rashes CENTRAL NERVOUS SYSTEM: No focal deficits, tone is normal in all 4 extremities. EXTREMITIES: There is no peripheral edema. No clubbing, no cyanosis. Peripheral pulses are intact. - Labs CBC & Chem 7: 05/18/22 08:48 05/18/22 08:48 Labs: Microbiology - Last 24 Hours (Table) 05/15/22 05:11 Blood Culture - Preliminary Blood No Growth after 96 hours Assessment and Plan Assessment: Acute hypoxemic respiratory failure secondary to an acute community-acquired pneumonia. Pro-calcitonin 0.73. Legionella antigen negative Acute exacerbation of chronic obstructive pulmonary disease secondary to above. Bacteremia secondary to Streptococcus pneumoniae. Currently on ceftriaxone. Acute COVID-19 infection, with previous infection about one month ago treated with PaxLovid and decadron in the outpatient setting. The patient has been vaccinated and boosted Previous history of pseudomonas aeruginosa pneumonia Hypertension Arthritis Gastroesophageal reflux disease Chronic rhinitis Atrial fibrillation, anticoagulated with Eliquis Hyperlipidemia Peptic ulcer disease Plan: The patient was seen and evaluated Stable and on room air Cleared for discharge from the pulmonary standpoint Keep her appointment in our office as scheduled I have personally seen and examined the patient, performed the documentation and the assessment and plan as written. Number of minutes spent on the visit: 10.
--- NOTE | 2022-05-19 20:18 | P.DS ---
Providers Date of admission: 05/14/22 04:40 Attending physician: Antonio Jenkins Consults: 05/14/22 04:37 Consult Physician Stat Consulting Provider: Emily Carney Consult Reason/Comments: acute resp failure, CAP with sepsis, COPD exacerbation, recent covid Do you want consulting provider notified?: Yes 05/14/22 20:59 Consult Physician Routine Consulting Provider: Randell Sun Consult Reason/Comments: bactremia Do you want consulting provider notified?: Yes, Notify in am 05/18/22 13:31 Consult Physician Urgent Consulting Provider: Rio Dietz Consult Reason/Comments: afib (was not on blood thinner ) Do you want consulting provider notified?: Yes Primary care physician: [facility] Course: Diagnoses: Bilateral infiltrates in both lung dutta could be atelectasis versus Bilateral Covid pneumonia versus gram-negative pneumonia, most likely it's a gram-negative pneumonia Mild Acute hypoxic respiratory failure sepsis with fever and leukocytosis. Improved Streptococcus pneumoniae bacteremia Atrial fibrillation's with RVR, POA Covid infection without increased inflammatory markers Acute COPD/asthma exacerbation Hypertension Hyperlipidemia Hearing difficulty History of osteoarthritis History of peptic ulcer, stomach ulcer History of liver disease Hospital course: This is a pleasant 86 years old -[place] female with past medical history of multiple problems as below including COPD and asthma She presents because of worsening dyspnea over the last 3-4 days with cough and yellowish phlegm and chest pain with coughing. Patient was found to have bilateral pneumonia most likely secondary to gram-negative bacteria, she was treated with IV antibiotics. Blood culture came back positive for Streptococcus pneumonia, pulmonary and infectious disease team are on the case, she was treated with ceftriaxone, her condition significantly improved and her sepsis resolved. Also patient was tested positive for Covid and she was improved with vitamins and dexamethasone. She tolerated dexamethasone and on 6 mg, initially on the day of discharge patient did not want steroids but when I explained to her it needs a few more days left 5 days to finish her course she agrees to continue with upon discharge however lower the dose to 40 mg daily orally. Patient agrees with this plan. Also patient on admission was placed on Eliquis because her EKG on admission was falsely labeled as an atrial fibrillation rhythm, however will recall the yard warehouse worker Dr. Peterson he does not believe the patient has asymptomatic currently and he does not know why the patient should be on eliquis blood thinner. I called her PCP Dr. Dean, and her the reviewed the records kindly and there is no history of A. fib or being on blood thinner Eliquis. However to be on the safe side made an appointment for the patient with her yard warehouse worker Dr. Dietz tomorrow (although patient was not sure where wanted to keep this appointment and she's got to talk to her daughter for reschedule) with recommendation for an event monitor, patient agrees. Dr. dean also with this plan and patient agrees to see him and appointment on 05/26 within a week. On the day of discharge she is fully awake and oriented, no dyspnea, occasional cough, no chest pain, no GI or urinary symptoms. Patient was cleared for discharge bicarb pulmonary and infectious disease team. Antibiotics up on discharge was set by ID team, please refer to discharge orders Problems and management plan were discussed with the patient and he verbalized understanding and acceptance Patient was found stable and can be discharged home in guarded prognosis however he needs follow-up as an outpatient. Patient was instructed to follow up with PCP Dr. Dean within one week and patient agrees Patient has oxygen at home Patient was instructed to follow up with her yard warehouse worker Dr. Dietz appointment tomorrow and Dr. Gilbert in 2-3 weeks and infectious disease in 1-2 weeks and she agrees Physical exam Gen: patient is a AAOx3, no distress CVS: S1-S2, RRR, no murmur Lungs: B/L CTA, no wheezing Abdomen: soft, no distention, no tenderness, positive bowel sounds Extremity: no leg edema or induration Time spent more than 35 minutes Patient Condition at Discharge: Stable Plan - Discharge Summary Discharge Rx Participant: No New Discharge Prescriptions: New dexAMETHasone [Decadron] 4 mg PO DAILY 5 Days #5 tab Zinc Sulfate [Orazinc] 220 mg PO DAILY #30 cap Ascorbic Acid [Vitamin C] 1,000 mg PO DAILY #30 tab Famotidine [Pepcid] 20 mg PO DAILY #30 tab Cholecalciferol [Vitamin D3 (25 Mcg = 1000 Iu)] 50 mcg PO DAILY #30 tab cefUROXime axetiL [Ceftin] 500 mg PO BID 10 Days #20 tab Continue Losartan Potassium 100 mg PO DAILY Tiotropium 18 Mcg/Puff [Spiriva] 1 puff INHALATION RT-DAILY Fluticasone Propion/Salmeterol [Advair 500-50 Diskus] 1 puff INHALATION RT- BID PRN PRN Reason: Shortness Of Breath guaiFENesin-Coden 100-10MG/5ML [Robitussin AC] 5 ml PO Q6H PRN PRN Reason: Cough Fluticasone/Umeclidin/Vilanter [Trelegy Ellipta 100-62.5-25] 1 puff INHALATION RT-DAILY Metoprolol Succinate (ER) [Toprol XL] 25 mg PO DAILY Mirtazapine 7.5 mg PO DIRECTED Albuterol Inhaler [Ventolin Hfa Inhaler] 2 puff INHALATION RT-Q4H PRN #1 each PRN Reason: Shortness Of Breath Rosuvastatin [Crestor] 10 mg PO DAILY Albuterol Nebulized [Ventolin Nebulized] 2.5 mg INHALATION RT-QID predniSONE 5 mg PO DAILY Ipratropium-Albuterol Nebulize [Duoneb 0.5 mg-3 mg/3 ml Soln] 3 ml INHALATION RT-Q4H Montelukast [Singulair] 10 mg PO DAILY Discharge Medication List Losartan Potassium 100 mg PO DAILY 10/30/14 [History] Fluticasone Propion/Salmeterol [Advair 500-50 Diskus] 1 puff INHALATION RT-BID PRN 10/20/21 [History] Rosuvastatin [Crestor] 10 mg PO DAILY 10/20/21 [History] Tiotropium 18 Mcg/Puff [Spiriva] 1 puff INHALATION RT-DAILY 10/20/21 [History] Albuterol Nebulized [Ventolin Nebulized] 2.5 mg INHALATION RT-QID 11/07/21 [History] Fluticasone/Umeclidin/Vilanter [Trelegy Ellipta 100-62.5-25] 1 puff INHALATION RT-DAILY 05/14/22 [History] Ipratropium-Albuterol Nebulize [Duoneb 0.5 mg-3 mg/3 ml Soln] 3 ml INHALATION RT-Q4H 05/14/22 [History] Metoprolol Succinate (ER) [Toprol XL] 25 mg PO DAILY 05/14/22 [History] Mirtazapine 7.5 mg PO DIRECTED 05/14/22 [History] Montelukast [Singulair] 10 mg PO DAILY 05/14/22 [History] guaiFENesin-Coden 100-10MG/5ML [Robitussin AC] 5 ml PO Q6H PRN 05/14/22 [History] predniSONE 5 mg PO DAILY 05/14/22 [History] Albuterol Inhaler [Ventolin Hfa Inhaler] 2 puff INHALATION RT-Q4H PRN #1 each 05/19/22 [Rx] Ascorbic Acid [Vitamin C] 1,000 mg PO DAILY #30 tab 05/19/22 [Rx] Cholecalciferol [Vitamin D3 (25 Mcg = 1000 Iu)] 50 mcg PO DAILY #30 tab 05/19/22 [Rx] Famotidine [Pepcid] 20 mg PO DAILY #30 tab 05/19/22 [Rx] Zinc Sulfate [Orazinc] 220 mg PO DAILY #30 cap 05/19/22 [Rx] cefUROXime axetiL [Ceftin] 500 mg PO BID 10 Days #20 tab 05/19/22 [Rx] dexAMETHasone [Decadron] 4 mg PO DAILY 5 Days #5 tab 05/19/22 [Rx] Follow up Appointment(s)/Referral(s): Rio Dietz MD [STAFF PHYSICIAN] - 05/20/22 3:45 pm (we recommend event monitor for checking for possible arrhythmia ) Pepe Dean MD [Primary Care Provider] - 05/26/22 1:00 pm Randell Sun MD [STAFF PHYSICIAN] - 06/01/22 2:45 pm Da Gilbert MD [STAFF PHYSICIAN] - 06/04/22 1:30 pm Patient Instructions/Handouts: Cefuroxime (By mouth), Famotidine (By mouth), Albuterol (By breathing), Zinc Sulfate (By mouth), Ascorbic Acid (By mouth), Dexamethasone (By mouth), Cholecalciferol (By mouth), Heart Healthy Diet (DC), COPD (Chronic Obstructive Pulmonary Disease) (DC), Community Acquired Pneumonia (DC), Bacteremia (DC) Activity/Diet/Wound Care/Special Instructions: Heart healthy diet Activity is restricted until see your doctor Discharge Disposition: HOME WITH HOME HEALTH SERVICES
== END 2022-05-19 15:47 | disposition home health service (06) | DRG 871 ==
LOC: EC 01:37 → 4SSUR 04:40
PROVIDERS: ADMIT Hospitalist; ATTEND Hospitalist
DX: A40.3 Sepsis due to Streptococcus pneumoniae (principal); J13 Pneumonia due to Streptococcus pneumoniae; J96.01 Acute respiratory failure with hypoxia; U07.1 COVID-19; I48.20 Chronic atrial fibrillation, unspecified; J45.901 Unspecified asthma with (acute) exacerbation; M19.90 Unspecified osteoarthritis, unspecified site; K27.9 Peptic ulcer, site unspecified, unspecified as acute or chronic, without hemorrhage or perforation; K21.9 Gastro-esophageal reflux disease without esophagitis; J43.9 Emphysema, unspecified; K76.9 Liver disease, unspecified; J31.0 Chronic rhinitis; K44.9 Diaphragmatic hernia without obstruction or gangrene; I10 Essential (primary) hypertension; K57.90 Diverticulosis of intestine, part unspecified, without perforation or abscess without bleeding; H91.90 Unspecified hearing loss, unspecified ear; E78.5 Hyperlipidemia, unspecified; R19.7 Diarrhea, unspecified; Z96.651 Presence of right artificial knee joint; Z99.81 Dependence on supplemental oxygen; Z87.891 Personal history of nicotine dependence; Z86.010 Personal history of colon polyps; Z79.899 Other long term (current) drug therapy; Z79.52 Long term (current) use of systemic steroids; Z79.51 Long term (current) use of inhaled steroids; Z86.16 Personal history of COVID-19; Z87.01 Personal history of pneumonia (recurrent); I25.2 Old myocardial infarction; Z86.11 Personal history of tuberculosis; Z88.5 Allergy status to narcotic agent; Z88.8 Allergy status to other drugs, medicaments and biological substances
CPT/HCPCS: 36415; 71045; 71046; 80048; 80053; 81003; 83605; 83615; 83735; 83880; 84145; 84484; 85025; 85027; 85379; 85610; 85730; 86140; 87040; 87070; 87077; 87186; 87205; 87449; 87502; 87635; 93005; 94640; 94760; 99285

== ENCOUNTER 2022-06-14 11:04 | Inpatient (IN) | payer MEDICARE, BC ==
[2022-06-14] MEDS ORDERED: methylPREDNISolone SOD SUCCI 125 MG/2 ML VIAL IV STA (11:37)
[2022-06-14] MEDS ORDERED: IPRATROPIUM 0.5 MG/2.5 ML NEBU INHALATION STA ×2 (11:37→13:39)
[2022-06-14] MEDS ORDERED: ALBUTEROL NEBULIZED 2.5 MG/3 ML INHALATION STA (11:37)
[2022-06-14 11:59] LABS: Basophils # (A) 0.1 k/uL (0-0.2); Basophils % (A) 1 %; Eosinophils # (A) 0.3 k/uL (0-0.7); Eosinophils % (A) 5 %; HCT 43.9 % (34.0-46.0); HGB 14.5 gm/dL (11.4-16.0); Lymphocytes # (A) 0.7 k/uL (1.0-4.8); Lymphocytes % (A) 11 %; MCH 31.5 pg (25.0-35.0); MCV 95.6 fL (80.0-100.0); Mean Platelet Volume 8.1; Monocytes # (A) 0.2 k/uL (0-1.0); Monocytes % (A) 3 %; Neutrophils # (A) 5.2 k/uL (1.3-7.7); Neutrophils % (A) 80 %; Platelet Count 288 k/uL (150-450); RBC 4.59 m/uL (3.80-5.40); RDW 13.3 % (11.5-15.5); WBC 6.6 k/uL (3.8-10.6)
[2022-06-14 12:15] LABS: African American GFR (CKD) >90 (>60 ml/min/1.73 sqM); Albumin 4.3 g/dL (3.5-5.0); Alkaline Phosphatase 102 U/L (38-126); Anion Gap 6 mmol/L; Blood Urea Nitrogen 10 mg/dL (7-17); Carbon Dioxide 30 mmol/L (22-30); Chloride 106 mmol/L (98-107); Glucose 113 mg/dL (74-99); Non-African American GFR(CKD) 84 (>60 ml/min/1.73 sqM); Sodium 142 mmol/L (137-145); Total Bilirubin 0.7 mg/dL (0.2-1.3); Total Protein 7.1 g/dL (6.3-8.2)
[2022-06-14 12:25] LABS: Magnesium 2.1 mg/dL (1.6-2.3)
[2022-06-14 12:26] LABS: ALT 25 U/L (4-34); AST 37 U/L (14-36)
[2022-06-14 12:33] LABS: Prothrombin Time 10.5 sec (9.0-12.0)
--- NOTE | 2022-06-14 12:56 | XR ---
EXAMINATION TYPE: XR chest 2V DATE OF EXAM: 06/14/2022 12:40 PM COMPARISON: Chest radiographs from05/15/2022 TECHNIQUE: XR chest 2V Frontal and lateral views of the chest. CLINICAL INDICATION:Female, 86 years old with history of difficulty breathing; FINDINGS: Lungs/Pleura: There is flattening of the diaphragm with increased lucency of the lungs. No evidence o f pneumothorax, pleural effusion or focal consolidation. Pulmonary vascularity: Unremarkable. Heart/mediastinum: Cardiomediastinal silhouette is unremarkable. Musculoskeletal: No acute osseous pathology. IMPRESSION: 1. No acute cardiopulmonary disease process. 2. COPD changes.
--- NOTE | 2022-06-14 13:06 | ED ---
General Adult HPI - General Chief complaint: Shortness of Breath Stated complaint: SOB Time Seen by Provider: 06/14/22 11:15 Source: patient, RN notes reviewed, old records reviewed Mode of arrival: wheelchair Limitations: no limitations - History of Present Illness Initial comments: This is an 86-year-old female presents emergency department with past medical history significant for COPD per patient states she has a 30+ years of smoking but quit 25 years ago. Patient states she was here in the hospital a few weeks ago and was sent home she states since then her difficulty breathing is slowly gotten worse. Patient states she does not have a fever chills per patient denies any chest pain or palpitations. Patient states she does have a cough but no sputum production. Patient denies any swelling to the legs or calf tenderness. Patient denies abdominal pain patient denies nausea vomiting diarrhea. - Related Data Home Medications Medication Instructions Recorded Confirmed Losartan Potassium 100 mg PO DAILY 10/30/14 06/14/22 Fluticasone Propion/Salmeterol 1 puff INHALATION RT-BID PRN 10/20/21 06/14/22 [Advair 500-50 Diskus] Rosuvastatin [Crestor] 10 mg PO DAILY 10/20/21 06/14/22 Tiotropium 18 Mcg/Puff [Spiriva] 1 puff INHALATION RT-DAILY 10/20/21 06/14/22 Albuterol Nebulized [Ventolin 2.5 mg INHALATION RT-QID 11/07/21 06/14/22 Nebulized] Fluticasone/Umeclidin/Vilanter 1 puff INHALATION RT-DAILY 05/14/22 06/14/22 [Trelegy Ellipta 100-62.5-25] Ipratropium-Albuterol Nebulize 3 ml INHALATION RT-Q4H 05/14/22 06/14/22 [Duoneb 0.5 mg-3 mg/3 ml Soln] Metoprolol Succinate (ER) [Toprol 25 mg PO DAILY 05/14/22 06/14/22 XL] Montelukast [Singulair] 10 mg PO DAILY 05/14/22 06/14/22 guaiFENesin-Coden 100-10MG/5ML 5 ml PO Q6H PRN 05/14/22 06/14/22 [Robitussin AC] Previous Rx's Medication Instructions Recorded Albuterol Inhaler [Ventolin Hfa 2 puff INHALATION RT-Q4H PRN #1 05/19/22 Inhaler] each Ascorbic Acid [Vitamin C] 1,000 mg PO DAILY #30 tab 05/19/22 Cholecalciferol [Vitamin D3 (25 50 mcg PO DAILY #30 tab 05/19/22 Mcg = 1000 Iu)] Famotidine [Pepcid] 20 mg PO DAILY #30 tab 05/19/22 Zinc Sulfate [Orazinc] 220 mg PO DAILY #30 cap 05/19/22 Allergies Allergy/AdvReac Type Severity Reaction Status Date / Time hydrocodone bitartrate AdvReac states Verified 06/14/22 13:06 [From Vicodin] "doesn't make me feel good" prednisone AdvReac Hallucinati Verified 06/14/22 13:06 ons Review of Systems ROS Statement: Those systems with pertinent positive or pertinent negative responses have been documented in the HPI. ROS Other: All systems not noted in ROS Statement are negative. 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 Last Myocardial Infarction Date:: 40 years ago History of Any Multi-Drug Resistant Organisms: None Reported Past Surgical History: Cholecystectomy, Hysterectomy, Orthopedic Surgery Additional Past Surgical History / Comment(s): KNEE arthroscopy, COLONOSCOPY- LARGE POLYP REMOVED, EGD, cataracts, Right TKA (10/21/21) Past Anesthesia/Blood Transfusion Reactions: No Reported Reaction Additional Past Anesthesia/Blood Transfusion Reaction / Comment(s): No hx blood transfusion. Past Psychological History: No Psychological Hx Reported Smoking Status: Former smoker Past Alcohol Use History: Occasional Past Drug Use History: None Reported - Past Family History Sister(s) Family Medical History: Cancer Additional Family Medical History / Comment(s): #1 sister colon cancer, # 2 sister lung cancer. Father Family Medical History: Cancer Additional Family Medical History / Comment(s): Prostate cancer. Mother Family Medical History: Asthma Additional Family Medical History / Comment(s): Heart problems. General Exam - General Exam Comments Initial Comments: GENERAL: Patient is well-developed and well-nourished. Patient is nontoxic and well- hydrated and is in mild distress. ENT: Neck is soft and supple. No significant lymphadenopathy is noted. Oropharynx is clear. Moist mucous membranes. Neck has full range of motion without eliciting any pain. EYES: The sclera were anicteric and conjunctiva were pink and moist. Extraocular movements were intact and pupils were equal round and reactive to light. Eyelids were unremarkable. PULMONARY: Patient is diffuse wheezing CARDIOVASCULAR: There is a regular rate and rhythm without any murmurs gallops or rubs. ABDOMEN: Soft and nontender with normal bowel sounds. No palpable organomegaly was noted. There is no palpable pulsatile mass. SKIN: Skin is clear with no lesions or rashes and otherwise unremarkable. NEUROLOGIC: Patient is alert and oriented x3. Cranial nerves II through XII are grossly intact. Motor and sensory are also intact. Normal speech, volume and content. Symmetrical smile. MUSCULOSKELETAL: Normal extremities with adequate strength and full range of motion. No lower extremity swelling or edema. No calf tenderness. LYMPHATICS: No significant lymphadenopathy is noted PSYCHIATRIC: Normal psychiatric evaluation. Limitations: no limitations Course Vital Signs 06/14/22 06/14/22 06/14/22 11:12 11:57 12:05 Temperature 98.8 F Pulse Rate 109 H 112 H 111 H Respiratory 19 20 18 Rate Blood Pressure 146/88 O2 Sat by Pulse 93 L Oximetry 06/14/22 06/14/22 06/14/22 12:06 12:12 12:19 Temperature Pulse Rate 110 H 109 H Respiratory 18 22 30 H Rate Blood Pressure 130/81 O2 Sat by Pulse 100 92 L Oximetry Medical Decision Making - Medical Decision Making EKG was interpreted by me EKG shows sinus tachycardia with occasional PAC at a rate of 116 bpm WY interval 143 QRSs 85 Q-T intervals 320 QTC is 390. Patient's EKG shows no ST segment elevation or depression. Was pt. sent in by a medical professional or institution? @ -No Did you speak to anyone other than the patient for history? @ -No Did you review nursing and triage notes? @ -I agree with nursing triage notes Were old charts reviewed? @ -I reviewed old EKGs and old x-rays and compared to current. I also reviewed old lab work. Differential Diagnosis? @ -Differential Dyspnea: Coronary syndrome, arrhythmia, tamponade, asthma, COPD, pulmonary embolism, pneumonia, pneumothorax, pulmonary effusion, anaphylaxis, diabetic ketoacidosis, flailed chest, pulmonary contusion, diaphragmatic rupture, anemia, neuromuscular, this is not meant to be an all-inclusive list. EKG interpreted by me (3pts min.)? @ -As above X-rays interpreted by me (1pt min.)? @ -I interpreted the chest x-ray showed no acute normalities. It shows chronic COPD CT interpreted by me (1pt min.)? @ -None U/S interpreted by me (1pt. min.)? @ -None What testing was considered but not performed? (CT, X-rays, U/S, labs)? Why? @ -I did consider doing a CT rule out PE however patient was breathing much better after treatments and clinically it seemed like a COPD exacerbation so I did not do it at this time. What meds were considered but not given? Why? @ -None Did you discuss the management of the patient with other professionals? @ -I spoke with Dr. campos he agreed to admit the patient to the patient wrote admitting orders Did you reconcile home meds? @ -None Was smoking cessation discussed for >3mins.? @ -None Was critical care preformed (if so, how long)? @ -Yes. 35 minutes. Patient was given multiple breathing treatments steroids in the emergency department with those treatments were again ordered for the floor as well as the steroid. Were there social determinants of health that impacted care today? How? (Homelessness, low income, unemployed, alcoholism, drug addiction, transportation, low edu. Level, literacy, decrease access to med. care, assisted, rehab)? @ -No Was there de-escalation of care discussed even if they declined? (Discuss DNR or withdrawal of care, Hospice)? @ -No What co-morbidities impacted this encounter? (DM, HTN, Smoking, COPD, CAD, Cancer, CVA, Hep., AIDS, mental health diagnosis, sleep apnea, morbid obesity)? @ -No Was patient admitted / discharged? @ -Admission. Patient was given multiple breathing treatments and steroids in the emergency department though she did improve her symptoms were not resolved and she continued to wheeze diffusely. Chest x-ray was normal. I spoke with Dr. campos he agreed to admit the patient admitted the patient wrote admitting orders and I consult pulmonary. I started the patient on antibiotic as well. Undiagnosed new problem with uncertain prognosis? @ -None Drug Therapy requiring intensive monitoring for toxicity (Heparin, Nitro, Insulin, Cardizem)? @ -None Were any procedures done? @ -None Diagnosis/symptom? @ -COPD exacerbation Acute, or Chronic, or Acute on Chronic? @ -Acute on chronic Uncomplicated (without systemic symptoms) or Complicated (systemic symptoms)? @ -Complicated Side effects of treatment? @ -None Exacerbation, Progression, or Severe Exacerbation] @ -Severe exacerbation Poses a threat to life or bodily function? @ -Yes. Hypoxia can cause end organ damage. - Lab Data Result diagrams: 06/14/22 11:50 06/14/22 11:50 Lab Results 06/14/22 06/14/22 06/14/22 Range/Units 11:50 11:50 11:50 WBC 6.6 (3.8-10.6) k/uL RBC 4.59 (3.80-5.40) m/uL Hgb 14.5 (11.4-16.0) gm/dL Hct 43.9 (34.0-46.0) % MCV 95.6 (80.0-100.0) fL MCH 31.5 (25.0-35.0) pg MCHC 33.0 (31.0-37.0) g/dL RDW 13.3 (11.5-15.5) % Plt Count 288 (150-450) k/uL MPV 8.1 Neutrophils % 80 % Lymphocytes % 11 % Monocytes % 3 % Eosinophils % 5 % Basophils % 1 % Neutrophils # 5.2 (1.3-7.7) k/uL Lymphocytes # 0.7 L (1.0-4.8) k/uL Monocytes # 0.2 (0-1.0) k/uL Eosinophils # 0.3 (0-0.7) k/uL Basophils # 0.1 (0-0.2) k/uL PT 10.5 (9.0-12.0) sec INR 1.0 (<1.2) APTT 21.6 L (22.0-30.0) sec Sodium 142 (137-145) mmol/L Potassium 4.0 (3.5-5.1) mmol/L Chloride 106 (98-107) mmol/L Carbon Dioxide 30 (22-30) mmol/L Anion Gap 6 mmol/L BUN 10 (7-17) mg/dL Creatinine 0.61 (0.52-1.04) mg/dL Est GFR (CKD-EPI)AfAm >90 (>60 ml/min/1.73 sqM) Est GFR (CKD-EPI)NonAf 84 (>60 ml/min/1.73 sqM) Glucose 113 H (74-99) mg/dL Plasma Lactic Acid Jace (0.7-2.0) mmol/L Calcium 9.0 (8.4-10.2) mg/dL Magnesium 2.1 (1.6-2.3) mg/dL Total Bilirubin 0.7 (0.2-1.3) mg/dL AST 37 H (14-36) U/L ALT 25 (4-34) U/L Alkaline Phosphatase 102 (38-126) U/L Troponin I (0.000-0.034) ng/mL NT-Pro-B Natriuret Pep pg/mL Total Protein 7.1 (6.3-8.2) g/dL Albumin 4.3 (3.5-5.0) g/dL 06/14/22 06/14/22 06/14/22 Range/Units 11:50 11:50 11:50 WBC (3.8-10.6) k/uL RBC (3.80-5.40) m/uL Hgb (11.4-16.0) gm/dL Hct (34.0-46.0) % MCV (80.0-100.0) fL MCH (25.0-35.0) pg MCHC (31.0-37.0) g/dL RDW (11.5-15.5) % Plt Count (150-450) k/uL MPV Neutrophils % % Lymphocytes % % Monocytes % % Eosinophils % % Basophils % % Neutrophils # (1.3-7.7) k/uL Lymphocytes # (1.0-4.8) k/uL Monocytes # (0-1.0) k/uL Eosinophils # (0-0.7) k/uL Basophils # (0-0.2) k/uL PT (9.0-12.0) sec INR (<1.2) APTT (22.0-30.0) sec Sodium (137-145) mmol/L Potassium (3.5-5.1) mmol/L Chloride (98-107) mmol/L Carbon Dioxide (22-30) mmol/L Anion Gap mmol/L BUN (7-17) mg/dL Creatinine (0.52-1.04) mg/dL Est GFR (CKD-EPI)AfAm (>60 ml/min/1.73 sqM) Est GFR (CKD-EPI)NonAf (>60 ml/min/1.73 sqM) Glucose (74-99) mg/dL Plasma Lactic Acid Jace 1.5 (0.7-2.0) mmol/L Calcium (8.4-10.2) mg/dL Magnesium (1.6-2.3) mg/dL Total Bilirubin (0.2-1.3) mg/dL AST (14-36) U/L ALT (4-34) U/L Alkaline Phosphatase (38-126) U/L Troponin I <0.012 (0.000-0.034) ng/mL NT-Pro-B Natriuret Pep 98 pg/mL Total Protein (6.3-8.2) g/dL Albumin (3.5-5.0) g/dL Critical Care Time Critical Care Time: Yes Total Critical Care Time: 35 Disposition Clinical Impression: Acute exacerbation of chronic obstructive pulmonary disease (COPD) Disposition: ADMITTED IP TO THIS HOSP Referrals: Pepe Shine MD [Primary Care Provider] - 1-2 days Time of Disposition: 13:05
[2022-06-14 13:08] LABS: Partial Thromboplastin Time 21.6 sec (22.0-30.0)
[2022-06-14] MEDS ORDERED: ALBUTEROL NEBULIZED (CONC) 5 MG, SODIUM CHLORIDE 0.9% NEBULIZ 3 ML INHALATION STA ×2 (13:39)
[2022-06-14] MEDS ORDERED: NALOXONE 0.4 MG/ML 1 ML VIAL IVP PRN (14:09)
[2022-06-14] MEDS: IPRATROPIUM-ALBUTEROL 3 ML NEB INHALATION SCH ×2 (16:30→21:47)
[2022-06-14] MEDS: methylPREDNISolone SOD SUCCI 125 MG/2 ML VIAL IV SCH ×2 (18:33→23:44)
[2022-06-14] MEDS ORDERED: guaiFENesin-Coden 100-10MG/5ML 10 ML CUP PO PRN (18:34)
--- NOTE | 2022-06-14 20:03 | HP ---
HISTORY AND PHYSICAL CHIEF COMPLAINT: Shortness of breath. HISTORY OF PRESENT ILLNESS: This is an 86-year-old woman with a past medical history of multiple medical problems, who was recently admitted with bilateral infiltrates with possibly COVID pneumonia. Recently, the patient had complained of increasing shortness of breath and cough and sputum. The patient came to [facility] and admitted for further evaluation. There is no history of any fever, rigors, or chills at this time. PAST MEDICAL HISTORY: Reviewed, include COPD, asthma, history of recent COVID. The rest of the history and rest of the chart was reviewed. HOME MEDICATIONS: Again reviewed include Robitussin. Dose and rest of medications reviewed. ALLERGIES: Reviewed include prednisone. FAMILY HISTORY: History of cancer in the family. SOCIAL HISTORY: Previous history of smoking. REVIEW OF SYSTEMS: A 14-point review is negative except as mentioned earlier. PHYSICAL EXAMINATION: VITAL SIGNS: Pulse is 114, blood pressure n HEENT: Conjunctivae normal. NECK: No JVD. CARDIOVASCULAR: S1, S2. RESPIRATIONS: Breathing efforts are markedly n. Scattered rhonchi n ABDOMEN: Soft, nontender. LEGS: No edema, no swelling. NERVOUS SYSTEM: No focal deficits. SKIN: No ulcer, rash, bleeding. JOINTS: No active deforming arthropathy. LABORATORY DATA: Labs noted. IMAGING STUDIES: Chest x-ray reviewed personally. ASSESSMENT: 1. Chronic obstructive pulmonary disease acute exacerbation with acute tracheobronchitis. 2. History of recent bilateral pneumonia. 3. History of recent coronavirus disease. 4. History of asthma. 5. Hypertension. 6. Hyperlipidemia. 7. Multiple medical issues. RECOMMENDATIONS: This is an 86-year-old woman who presented with multiple complex medical issues. We will initiate intensive bronchodilator treatment, empiric antibiotics. Otherwise, Pulmonary consultation. The overall prognosis is guarded. Further recommendation to follow. Home medication will be continued and I would also recommend a procalcitonin, so NT proBNP is normal. See orders for details. PROGNOSIS: Guarded. MMODL / IJN: [id number] / MTDD
[2022-06-14] MEDS: HEPARIN SODIUM,PORCINE/PF 5,000 UNIT/0.5 ML SYRINGE SQ SCH (20:56)
[2022-06-14] MEDS: AMOXIC-POT CLAV 875-125MG 1 EACH TAB PO SCH (20:56)
[2022-06-14] MEDS: FORMOTEROL FUMARATE 20 MCG/2 ML NEBU INHALATION SCH (21:47)
[2022-06-14] MEDS: BUDESONIDE 1 MG/2 ML NEBU INHALATION SCH (21:47)
[2022-06-15] MEDS: methylPREDNISolone SOD SUCCI 125 MG/2 ML VIAL IV SCH ×3 (05:26→17:44)
[2022-06-15 07:09] LABS: Basophils % (A) 0 %; Eosinophils % (A) 0 %; HCT 40.3 % (34.0-46.0); HGB 13.3 gm/dL (11.4-16.0); Lymphocytes # (A) 0.9 k/uL (1.0-4.8); Lymphocytes % (A) 10 %; MCH 31.7 pg (25.0-35.0); MCHC 33.1 g/dL (31.0-37.0); MCV 95.6 fL (80.0-100.0); Mean Platelet Volume 7.7; Monocytes # (A) 0.2 k/uL (0-1.0); Monocytes % (A) 3 %; Neutrophils # (A) 7.4 k/uL (1.3-7.7); Neutrophils % (A) 87 %; Platelet Count 309 k/uL (150-450); RBC 4.21 m/uL (3.80-5.40); RDW 13.3 % (11.5-15.5); WBC 8.6 k/uL (3.8-10.6)
[2022-06-15] MEDS: FORMOTEROL FUMARATE 20 MCG/2 ML NEBU INHALATION SCH ×2 (07:15→21:54)
[2022-06-15] MEDS: BUDESONIDE 1 MG/2 ML NEBU INHALATION SCH ×2 (07:15→21:55)
[2022-06-15] MEDS: IPRATROPIUM-ALBUTEROL 3 ML NEB INHALATION SCH ×4 (07:15→21:55)
[2022-06-15 07:32] LABS: African American GFR (CKD) >90 (>60 ml/min/1.73 sqM); Anion Gap 4 mmol/L; Blood Urea Nitrogen 13 mg/dL (7-17); Calcium 9.1 mg/dL (8.4-10.2); Carbon Dioxide 31 mmol/L (22-30); Chloride 106 mmol/L (98-107); Glucose 129 mg/dL (74-99); Non-African American GFR(CKD) 86 (>60 ml/min/1.73 sqM); Potassium 3.8 mmol/L (3.5-5.1); Sodium 141 mmol/L (137-145)
[2022-06-15] MEDS: AMOXIC-POT CLAV 875-125MG 1 EACH TAB PO SCH ×2 (09:25→20:43)
[2022-06-15] MEDS: HEPARIN SODIUM,PORCINE/PF 5,000 UNIT/0.5 ML SYRINGE SQ SCH ×2 (09:26→20:42)
[2022-06-15] MEDS: ASCORBIC ACID 500 MG TAB PO SCH (09:26)
[2022-06-15] MEDS: FAMOTIDINE 20 MG TAB PO SCH (09:26)
[2022-06-15] MEDS: ZINC SULFATE 220 MG CAP PO SCH (09:26)
[2022-06-15] MEDS: MONTELUKAST 10 MG TAB PO SCH (09:26)
[2022-06-15] MEDS: LOSARTAN 50 MG TAB PO SCH (09:26)
[2022-06-15] MEDS: ATORVASTATIN 20 MG TAB PO SCH (09:26)
[2022-06-15] MEDS: METOPROLOL SUCCINATE (ER) 25 MG TAB.ER.24H PO SCH (09:26)
[2022-06-15] MEDS: CHOLECALCIFEROL 25 MCG (1000 IU) TABLET PO SCH (09:26)
--- NOTE | 2022-06-15 13:03 | PN ---
PROGRESS NOTE DATE OF SERVICE: 06/15/2022 SUBJECTIVE: This 86-year-old woman, who was admitted with COPD acute exacerbation, failure of outpatient treatment, is scheduled for bronchoscopy tomorrow by Dr. Richardson. No chest pain. No palpitations. No fever. OBJECTIVE: VITAL SIGNS: Pulse is 110, blood pressure 140/70, respirations 14. CHEST: Bilateral scattered rhonchi and crackles. ABDOMEN: Soft. NERVOUS SYSTEM: Nonfocal. LABORATORY DATA: Reviewed. COVID-19 is negative. ASSESSMENT: 1. Chronic obstructive pulmonary disease acute exacerbation with acute purulent tracheobronchitis with failure of outpatient treatment. 2. History of recent bilateral pneumonia. 3. History of recent COVID-19 infection. 4. History of asthma. 5. Hypertension. 6. Hyperlipidemia. 7. Multiple medical issues. RECOMMENDATIONS: I recommend to continue current medications and symptomatic treatment. Continue with bronchodilators, antibiotics. Bronchoscopy by Dr. Richardson. Prognosis is guarded because of multiple complex medical issues. Further recommendations to follow. MMODL / IJN: [id number] /
--- NOTE | 2022-06-15 13:32 | P.CNPUL ---
History of Present Illness Consult date: 06/15/22 Requesting physician: Yao Castañeda Reason for consult: dyspnea, cough, COPD, hypoxemia, abnormal CXR/CT Chief complaint: Shortness of breath. History of present illness: Pulmonary consult dated 06/15/2022. 86-year-old black female with a history of COPD. The patient was recently inpatient with a COPD exacerbation. The patient presented to the emergency room on June 14, complaining of shortness of breath. The patient has a history of long-standing tobacco use, although she quit many years ago. The patient came in complaining of shortness of breath, chest congestion, cough, and some phlegm production although she's not producing much in the way of phlegm. She denied any chest pain or chest discomfort. There is no nausea, vomiting, or diarrhea. The patient denied any abdominal pain. The patient denied genitourinary complaints. The patient does request a bronchoscopy. We'll schedule her for tomorrow. She feels like she needs one because she can't cough up the phlegm was in her chest. CBC is completely normal. Coagulation studies are normal. Sodium 141, potassium 3.8, chlorides 106, CO2 31, anion gap 4, BUN 13, and creatinine 0.57. Testing for coronavirus was negative. Chest x-ray showed changes of COPD, but no acute disease. The chest x-ray was shown to the patient. Her medications are appropriate. Review of Systems REVIEW OF SYSTEMS: CONSTITUTIONAL: [Negative.] NEUROLOGIC: [ Negative.] HEENT: [ Negative.] CARDIAC: [Negative.] PULMONARY: Shortness of breath, cough, wheezing, chest tightness, and occasional phlegm production. GI: [Negative.] : [Negative.] RHEUMATOLOGIC: [ Negative.] IMMUNOLOGIC: [ Negative.] ENDOCRINE: [Negative. 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 Last Myocardial Infarction Date:: 40 years ago History of Any Multi-Drug Resistant Organisms: None Reported Past Surgical History: Cholecystectomy, Hysterectomy, Orthopedic Surgery Additional Past Surgical History / Comment(s): KNEE arthroscopy, COLONOSCOPY- LARGE POLYP REMOVED, EGD, cataracts, Right TKA (10/21/21) Past Anesthesia/Blood Transfusion Reactions: No Reported Reaction Additional Past Anesthesia/Blood Transfusion Reaction / Comment(s): No hx blood transfusion. Past Psychological History: No Psychological Hx Reported Smoking Status: Former smoker Past Alcohol Use History: Occasional Past Drug Use History: None Reported - Past Family History Sister(s) Family Medical History: Cancer Additional Family Medical History / Comment(s): #1 sister colon cancer, # 2 sister lung cancer. Father Family Medical History: Cancer Additional Family Medical History / Comment(s): Prostate cancer. Mother Family Medical History: Asthma Additional Family Medical History / Comment(s): Heart problems. Medications and Allergies Home Medications Medication Instructions Recorded Confirmed Type Losartan Potassium 100 mg PO DAILY 10/30/14 06/14/22 History Fluticasone Propion/Salmeterol 1 puff INHALATION RT-BID PRN 10/20/21 06/14/22 History [Advair 500-50 Diskus] Rosuvastatin [Crestor] 10 mg PO DAILY 10/20/21 06/14/22 History Tiotropium 18 Mcg/Puff [Spiriva] 1 puff INHALATION RT-DAILY 10/20/21 06/14/22 History Albuterol Nebulized [Ventolin 2.5 mg INHALATION RT-QID 11/07/21 06/14/22 History Nebulized] Fluticasone/Umeclidin/Vilanter 1 puff INHALATION RT-DAILY 05/14/22 06/14/22 History [Trelegy Ellipta 100-62.5-25] Ipratropium-Albuterol Nebulize 3 ml INHALATION RT-Q4H 05/14/22 06/14/22 History [Duoneb 0.5 mg-3 mg/3 ml Soln] Metoprolol Succinate (ER) [Toprol 25 mg PO DAILY 05/14/22 06/14/22 History XL] Montelukast [Singulair] 10 mg PO DAILY 05/14/22 06/14/22 History guaiFENesin-Coden 100-10MG/5ML 5 ml PO Q6H PRN 05/14/22 06/14/22 History [Robitussin AC] Albuterol Inhaler [Ventolin Hfa 2 puff INHALATION RT-Q4H PRN #1 05/19/22 06/14/22 Rx Inhaler] each Ascorbic Acid [Vitamin C] 1,000 mg PO DAILY #30 tab 05/19/22 06/14/22 Rx Cholecalciferol [Vitamin D3 (25 50 mcg PO DAILY #30 tab 05/19/22 06/14/22 Rx Mcg = 1000 Iu)] Famotidine [Pepcid] 20 mg PO DAILY #30 tab 05/19/22 06/14/22 Rx Zinc Sulfate [Orazinc] 220 mg PO DAILY #30 cap 05/19/22 06/14/22 Rx Allergies Allergy/AdvReac Type Severity Reaction Status Date / Time hydrocodone bitartrate AdvReac states Verified 06/14/22 13:06 [From Vicodin] "doesn't make me feel good" prednisone AdvReac Hallucinati Verified 06/14/22 13:06 ons Physical Exam Osteopathic Statement: *. No significant issues noted on an osteopathic st ructural exam other than those noted in the History and Physical/Consult. Vitals: Vital Signs Temp Pulse Pulse Resp BP BP Pulse Ox 06/15/22 11:28 100 06/15/22 11:19 108 H 06/15/22 08:47 98.3 F 110 H 14 146/78 92 L 06/15/22 07:41 102 H 06/15/22 07:32 104 H 06/15/22 07:31 104 H 06/15/22 07:17 100 96 06/15/22 04:00 96 19 96 06/15/22 00:00 116 H 21 140/76 96 06/14/22 22:11 112 H 06/14/22 22:02 108 H 06/14/22 22:01 108 H 06/14/22 21:52 120 H 97 06/14/22 20:00 98.2 F 126 H 24 170/91 96 06/14/22 17:00 115 H 28 H 129/86 98 06/14/22 16:37 119 H 20 06/14/22 16:30 114 H 18 06/14/22 16:00 114 H 23 120/61 97 06/14/22 15:00 116 H 24 142/70 97 06/14/22 14:45 107 H 18 142/70 99 06/14/22 14:30 104 H 20 06/14/22 14:18 103 H 20 Intake and Output 06/14/22 06/15/22 06/15/22 22:59 06:59 14:59 Intake Total 485 485 485 Balance 485 485 485 Intake: Oral 485 485 485 Other: Voiding Method Toilet Toilet # Voids 1 3 No acute distress, oriented 3. Currently on 2 L. No respiratory distress, audible wheezing, or use of accessory muscles. The patient does have frequent paroxysmal cough. HEENT examination is grossly unremarkable. Neck supple. Full range of motion. No adenopathy thyromegaly or neck vein distention. Cardiovascular examination reveals regular rhythm rate. S1-S2 normal. No S3 or S4. No discernible murmur noted. Heart sounds are distant. Heart rate 100 bpm. Lungs reveal inspiratory and expiratory wheezes and rhonchi. Breath sounds are equal bilaterally but diminished throughout. No crackles. Saturations are in the low 90s, on 2 L. Abdomen soft bowel sounds are heard. No masses or tenderness. Extremities are intact. No cyanosis clubbing or edema. Skin is without rash or lesion. Neurologic examination is brief but nonfocal. Results - Laboratory Findings CBC and BMP: 06/15/22 06:39 06/15/22 06:39 PT/INR, D-dimer PT 10.5 sec (9.0-12.0) 06/14/22 11:50 INR 1.0 (<1.2) 06/14/22 11:50 Abnormal lab findings: Abnormal Labs 06/14/22 06/14/22 06/14/22 11:50 11:50 11:50 Lymphocytes # 0.7 L APTT 21.6 L Carbon Dioxide Glucose 113 H AST 37 H 06/15/22 06/15/22 06:39 06:39 Lymphocytes # 0.9 L APTT Carbon Dioxide 31 H Glucose 129 H AST - Diagnostic Findings Chest x-ray: image reviewed Assessment and Plan Assessment: Acute exacerbation of COPD. History of deafness. History of hyperlipidemia. History of hypertension. Osteoarthritis. Stress urinary incontinence. History of diverticular disease. Prior history of pneumonia, 2019. Intermittent nocturnal use of oxygen. Plan: Plan dated 06/15/2022. The patient is on appropriate medications. The patient will be made nothing by mouth after midnight, for bronchoscopy tomorrow. As a consent on the chart. Patient is on bronchodilators, and corticosteroids. Prognosis is guarded. We will continue to follow the patient and make recommendations along the way. In addition, we'll give the patient a follow-up visit with me on Wednesday, at 8:30 AM. Time with Patient: Greater than 30
[2022-06-16] MEDS: methylPREDNISolone SOD SUCCI 125 MG/2 ML VIAL IV SCH ×4 (00:42→18:18)
[2022-06-16] MEDS: FORMOTEROL FUMARATE 20 MCG/2 ML NEBU INHALATION SCH ×2 (08:18→22:01)
[2022-06-16] MEDS: IPRATROPIUM-ALBUTEROL 3 ML NEB INHALATION SCH ×5 (08:18→22:02)
[2022-06-16] MEDS: BUDESONIDE 1 MG/2 ML NEBU INHALATION SCH ×2 (08:18→22:02)
[2022-06-16] MEDS: HEPARIN SODIUM,PORCINE/PF 5,000 UNIT/0.5 ML SYRINGE SQ SCH ×2 (10:25→20:39)
[2022-06-16] MEDS: ZINC SULFATE 220 MG CAP PO SCH (10:33)
[2022-06-16] MEDS: LOSARTAN 50 MG TAB PO SCH (10:33)
[2022-06-16] MEDS: AMOXIC-POT CLAV 875-125MG 1 EACH TAB PO SCH ×2 (10:33→20:39)
[2022-06-16] MEDS: CHOLECALCIFEROL 25 MCG (1000 IU) TABLET PO SCH (10:33)
[2022-06-16] MEDS: METOPROLOL SUCCINATE (ER) 25 MG TAB.ER.24H PO SCH (10:34)
[2022-06-16] MEDS: MONTELUKAST 10 MG TAB PO SCH (10:34)
[2022-06-16] MEDS: ATORVASTATIN 20 MG TAB PO SCH (10:34)
[2022-06-16] MEDS: FAMOTIDINE 20 MG TAB PO SCH (10:34)
[2022-06-16] MEDS: ASCORBIC ACID 500 MG TAB PO SCH (10:36)
[2022-06-16] MEDS ORDERED: ACETAMINOPHEN TAB 325 MG TAB PO PRN (10:41)
[2022-06-16] MEDS ORDERED: LACTATED RINGERS 1,000 ML IV ONE (12:00)
[2022-06-16] MEDS ORDERED: PROPOFOL 10 MG/ML 20 ML VIAL IV ONE (12:11)
[2022-06-16] MEDS ORDERED: LIDOCAINE 2% INJ 20 MG/ML INTRATRACH ONE (12:24)
--- NOTE | 2022-06-16 13:06 | OP ---
OPERATIVE REPORT PROCEDURES PERFORMED: Bronchoscopy; airway examination; therapeutic lavage; BAL. PREOPERATIVE DIAGNOSES: Chronic obstructive pulmonary disease exacerbation, retained secretions and infection. POSTOPERATIVE DIAGNOSES: Chronic obstructive pulmonary disease exacerbation, retained secretions and infection. ANESTHESIA PROVIDED: General anesthesia. DESCRIPTION OF PROCEDURE: The patient's procedure was took place in room #1 [facility]. There was informed consent and universal timeout. After the patient was adequately sedated and being fully monitored, the bronchoscope was inserted through the right nostril. It passed through the right nasopharynx into the oropharynx. The hypopharynx was full of secretions. They were suctioned with some difficulty. The hypopharyngeal structures, including anterior commissure, true cords, false cords, arytenoids, piriform sinuses, right and left, vallecula, epiglottis, all appeared relatively normal once the secretions were suctioned. The glottis opening was topicalized. The bronchoscope was pushed through the glottic opening into the trachea. There were thick secretions noted throughout the trachea. They were purulent looking. They were suctioned with some difficulty with the aid of saline lavage. Next, the bronchoscope was used to topicalize the right mainstem and the left mainstem. The right upper lobe and its 3 segments, the right middle lobe and its 2 segments, right lower lobe and its 5 segments, the left upper lobe proper and its 2 segments, the lingula and its 2 segments and the left lower lobe and its 4 segments all had similar findings of diffuse airway erythema and hyperemia. There was no dominant mass or tumor. There was mucosal friability. There were 6 thick secretions noted throughout the airways. They were suctioned. I had to come out of the airways a number of times to bring out the thick mucus plugs. Next, the bronchoscope was wedged into the right middle lobe. A formal BAL took place. A 30 mL of fluid was recovered. The fluid will be sent to the laboratory for analysis. There was no immediate complication. The patient was stable throughout the procedure. The patient will be taken back to her room. The samples were sent to the laboratory for additional analysis. MMODL / IJN: [id number] /
--- NOTE | 2022-06-16 13:45 | P.PN ---
Subjective Progress Note Date: 06/16/22 Principal diagnosis: Acute COPD exacerbation, hypoxemia 86-year-old black female with a history of COPD. The patient was recently inpatient with a COPD exacerbation. The patient presented to the emergency room on June 14, complaining of shortness of breath. The patient has a history of long-standing tobacco use, although she quit many years ago. The patient came in complaining of shortness of breath, chest congestion, cough, and some phlegm production although she's not producing much in the way of phlegm. She denied any chest pain or chest discomfort. There is no nausea, vomiting, or diarrhea. The patient denied any abdominal pain. The patient denied genitourinary complaints. The patient does request a bronchoscopy. We'll schedule her for tomorrow. She feels like she needs one because she can't cough up the phlegm was in her chest. CBC is completely normal. Coagulation studies are normal. Sodium 141, potassium 3.8, chlorides 106, CO2 31, anion gap 4, BUN 13, and creatinine 0.57. Testing for coronavirus was negative. Chest x-ray showed changes of COPD, but no acute disease. The chest x-ray was shown to the patient. Her medications are appropriate. Evaluating this patient today on 06/16/2022 on a general medical floor. She is currently nothing by mouth for planned bronchoscopy today. Overall, she is resting comfortably up in bed, on 2 L nasal cannula, in no acute distress. She continues to have a persistent congested cough with limited sputum production. Shortness of breath has improved. Blood cultures are negative at 24 hours. No new labs today. no new x-ray to review today. She continues to be managed on DuoNeb inhalation, budesonide inhalation, formoterol inhalation, IV Solu-Medrol, and Singulair. She is also receiving Augmentin for empiric antibiotic therapy. Patient has remained afebrile overnight, and vital signs are stable. No IV maintenance fluids infusing. Objective - Vital Signs Vital signs: Vital Signs Temp 98.1 F 06/16/22 13:16 Pulse 102 H 06/16/22 13:16 Resp 20 06/16/22 13:16 BP 168/71 06/16/22 13:16 Pulse Ox 91 L 06/16/22 13:16 FiO2 Intake & Output 06/15/22 06/16/2223 18:59 06:59 18:59 Intake Total 485 200 Output Total 200 Balance 485 -200 200 Weight 70.307 kg 74.5 kg Intake: IV 200 Oral 485 Output: Urine 200 Other: Voiding Method Toilet # Voids 2 - Exam No acute distress, oriented 3. Currently on 2 L. No respiratory distress, audible wheezing, or use of accessory muscles. The patient does have persistent paroxysmal cough. HEENT examination is grossly unremarkable. Neck supple. Full range of motion. No adenopathy thyromegaly or neck vein distention. Cardiovascular examination reveals regular rhythm rate. S1-S2 normal. No S3 or S4. No discernible murmur noted. Heart sounds are distant. Heart rate 96 bpm. Lungs reveal inspiratory and expiratory wheezes and rhonchi. Breath sounds are equal bilaterally but diminished throughout. No crackles. Currently on 2 L nasal cannula. Abdomen soft bowel sounds are heard. No masses or tenderness. Extremities are intact. No cyanosis clubbing or edema. Skin is without rash or lesion. Neurologic examination is brief but nonfocal. - Labs CBC & Chem 7: 06/15/22 06:39 06/15/22 06:39 Labs: Microbiology - Last 24 Hours (Table) 06/14/22 11:50 Blood Culture - Preliminary Blood No Growth after 24 hours 06/14/22 11:50 Blood Culture - Preliminary Blood No Growth after 24 hours Assessment and Plan Assessment: Acute exacerbation of COPD. History of deafness. History of hyperlipidemia. History of hypertension. Osteoarthritis. Stress urinary incontinence. History of diverticular disease. Prior history of pneumonia, 2020. Intermittent nocturnal use of oxygen. Plan: Patient's medications reviewed Patient is nothing by mouth after midnight and ready for bronchoscopy We'll consult speech for swallow evaluation Continue supplemental oxygen to maintain oxygen saturation 92% or greater. Continue Augmentin for empiric therapy Continue DuoNeb inhalation, budesonide inhalation, formoterol inhalation, IV Solu-Medrol, Singulair. I have personally seen and examined the patient, performed the documentation and the assessment and plan as written. Number of minutes spent on the visit: 10. Time with Patient: Less than 30
[2022-06-16] MEDS: LACTATED RINGERS 1,000 ML IV SCH (14:55)
[2022-06-16] MEDS: PANTOPRAZOLE 40 MG TABLET PO SCH (15:04)
--- NOTE | 2022-06-16 22:18 | PN ---
PROGRESS NOTE DATE OF SERVICE: 06/16/2022 SUBJECTIVE: This is an 86-year-old woman, who was admitted with COPD acute exacerbation aspiration has been raised at this time. I would recommend Gastroenterology consultation and a modified barium swallow. Dr. Richardson performed bronchoscopy and thick mucus plugs are noted. Cultures are pending. No chest pain. No palpitation. OBJECTIVE: VITAL SIGNS: Pulse is 108, blood pressure N, respirations 20. CHEST: A few scattered rhonchi. ABDOMEN: Soft. NERVOUS SYSTEM: No focal deficits. LABORATORY DATA: Reviewed. ASSESSMENT: 1. Chronic obstructive pulmonary disease acute exacerbation with acute purulent tracheobronchitis with failure of outpatient treatment. 2. History of recent bilateral pneumonia. 3. Status post bronchoscopy. 4. History of recent coronavirus disease-19 infection. 5. Rule out aspiration. 6. History of asthma. 7. Hypertension. 8. Hyperlipidemia. 9. Multiple medical issues. RECOMMENDATIONS: Recommend to continue current management. Continue symptomatic treatment. Otherwise, we will closely follow with Gastroenterology. Modified barium swallow with speech and follow the cultures from the bronchoscopy. Closely follow with Pulmonary. Prognosis guarded. Further recommendations to follow. Empiric proton pump inhibitors. MMODL / IJN: [id number] / JL
[2022-06-17] MEDS: methylPREDNISolone SOD SUCCI 125 MG/2 ML VIAL IV SCH ×5 (00:16→23:25)
[2022-06-17] MEDS: PANTOPRAZOLE 40 MG TABLET PO SCH (06:34)
[2022-06-17] MEDS: FORMOTEROL FUMARATE 20 MCG/2 ML NEBU INHALATION SCH ×2 (08:39→21:51)
[2022-06-17] MEDS: IPRATROPIUM-ALBUTEROL 3 ML NEB INHALATION SCH ×4 (08:39→21:51)
[2022-06-17] MEDS: BUDESONIDE 1 MG/2 ML NEBU INHALATION SCH ×2 (08:39→21:51)
[2022-06-17 10:23] LABS: Basophils # (A) 0 X 10*3/uL (0.00-0.10); Basophils % (A) 0 %; Eosinophils # (A) 0 X 10*3/uL (0.04-0.35); Eosinophils % (A) 0 %; HGB 13.5 g/dL (12.0-15.0); Immature Grans, Automated 0.5 %; Lymphocytes # (A) 0.64 X 10*3/uL (0.90-5.00); Lymphocytes % (A) 5.6 %; MCH 30.6 pg (27.0-32.0); MCHC 32.1 g/dL (32.0-37.0); MCV 95.2 fL (80.0-97.0); Mean Platelet Volume 10.2 fL (9.5-12.2); Monocytes # (A) 0.35 X 10*3/uL (0.20-1.00); NRBC Per 100 WBC 0 /100 WBCS (0.0-0.0); Neutrophils # (A) 10.43 X 10*3/uL (1.80-7.70); Neutrophils % (A) 90.9 %; Platelet Count 458 X 10*3/uL (140-440); RBC 4.41 X 10*6/uL (4.10-5.20); WBC 11.48 X 10*3/uL (4.50-10.00)
[2022-06-17 10:56] LABS: African American GFR (CKD) 78.5 (60.0-200.0); Anion Gap 10.9 mmol/L (10.00-18.00); BUN/Creat Ratio 24.25 Ratio (12.00-20.00); Blood Urea Nitrogen 19.4 mg/dL (9.0-27.0); Calcium 9.5 mg/dL (8.7-10.3); Carbon Dioxide 28.1 mmol/L (20.0-27.5); Non-African American GFR(CKD) 67.7 (60.0-200.0); Potassium 4.1 mmol/L (3.5-5.5)
[2022-06-17] MEDS: LOSARTAN 50 MG TAB PO SCH (11:30)
[2022-06-17] MEDS: ZINC SULFATE 220 MG CAP PO SCH ×2 (11:30→11:52)
[2022-06-17] MEDS: CHOLECALCIFEROL 25 MCG (1000 IU) TABLET PO SCH (11:30)
[2022-06-17] MEDS: FAMOTIDINE 20 MG TAB PO SCH (11:30)
[2022-06-17] MEDS: HEPARIN SODIUM,PORCINE/PF 5,000 UNIT/0.5 ML SYRINGE SQ SCH ×2 (11:31→21:41)
[2022-06-17] MEDS: ASCORBIC ACID 500 MG TAB PO SCH (11:31)
[2022-06-17] MEDS: METOPROLOL SUCCINATE (ER) 25 MG TAB.ER.24H PO SCH (11:31)
[2022-06-17] MEDS: MONTELUKAST 10 MG TAB PO SCH ×2 (11:31→11:52)
[2022-06-17] MEDS: ATORVASTATIN 20 MG TAB PO SCH (11:31)
[2022-06-17] MEDS: AMOXIC-POT CLAV 875-125MG 1 EACH TAB PO SCH ×2 (11:35→21:41)
--- NOTE | 2022-06-17 12:38 | P.PN ---
Subjective Progress Note Date: 06/17/22 86-year-old black female with a history of COPD. The patient was recently inpatient with a COPD exacerbation. The patient presented to the emergency room on June 14, complaining of shortness of breath. The patient has a history of long-standing tobacco use, although she quit many years ago. The patient came in complaining of shortness of breath, chest congestion, cough, and some phlegm production although she's not producing much in the way of phlegm. She denied any chest pain or chest discomfort. There is no nausea, vomiting, or diarrhea. The patient denied any abdominal pain. The patient denied genitourinary complaints. The patient does request a bronchoscopy. We'll schedule her for tomorrow. She feels like she needs one because she can't cough up the phlegm was in her chest. CBC is completely normal. Coagulation studies are normal. Sodium 141, potassium 3.8, chlorides 106, CO2 31, anion gap 4, BUN 13, and creatinine 0.57. Testing for coronavirus was negative. Chest x-ray showed changes of COPD, but no acute disease. The chest x-ray was shown to the patient. Her medications are appropriate. Evaluating this patient today on 06/16/2022 on a general medical floor. She is currently nothing by mouth for planned bronchoscopy today. Overall, she is resting comfortably up in bed, on 2 L nasal cannula, in no acute distress. She continues to have a persistent congested cough with limited sputum production. Shortness of breath has improved. Blood cultures are negative at 24 hours. No new labs today. no new x-ray to review today. She continues to be managed on DuoNeb inhalation, budesonide inhalation, formoterol inhalation, IV Solu-Medrol, and Singulair. She is also receiving Augmentin for empiric antibiotic therapy. Patient has remained afebrile overnight, and vital signs are stable. No IV maintenance fluids infusing. 06/17/2022, radha is feeling better in terms of her COPD exacerbation. She is post bronchoscopy and lavage and the cultures are negative and the patient is currently on Augmentin. At the same time, the patient is taken IV Solu-Medrol 60 mg every 6 hours, DuoNeb about treatments [id number]. She also is having some difficulty with her swallow and she was seen by gastroenterology and the patient is going to undergo a EGD within the next 24 hours. Her pro calcitonin level was low at 0.04. Her Covid 19 testing was negative. Electrolytes were normal. WBC count was 11.4 with a hemoglobin of 15.5. Objective - Vital Signs Vital signs: Vital Signs Temp 98.2 F 06/17/22 08:00 Pulse 90 06/17/22 12:07 Resp 18 06/17/22 08:00 BP 159/90 06/17/22 08:00 Pulse Ox 92 L 06/17/22 08:00 FiO2 Intake & Output 06/16/22 06/17/22 06/17/22 18:59 06:59 18:59 Intake Total 200 Balance 200 Weight 72 kg Intake: IV 200 Other: Voiding Method Toilet Toilet # Voids 1 3 - Exam No acute distress, oriented 3. Currently on 2 L. No respiratory distress, audible wheezing, or use of accessory muscles. The patient does have persistent paroxysmal cough. HEENT examination is grossly unremarkable. Neck supple. Full range of motion. No adenopathy thyromegaly or neck vein distention. Cardiovascular examination reveals regular rhythm rate. S1-S2 normal. No S3 or S4. No discernible murmur noted. Heart sounds are distant. Heart rate 96 bpm. Lungs reveal inspiratory and expiratory wheezes and rhonchi. Breath sounds are equal bilaterally but diminished throughout. No crackles. Currently on 2 L nasal cannula. Abdomen soft bowel sounds are heard. No masses or tenderness. Extremities are intact. No cyanosis clubbing or edema. Skin is without rash or lesion. Neurologic examination is brief but nonfocal. - Labs CBC & Chem 7: 06/17/22 06:29 06/17/22 06:29 Labs: Abnormal Lab Results - Last 24 Hours (Table) 06/17/22 06/17/22 Range/Units 06:29 06:29 WBC 11.48 H (4.50-10.00) X 10*3/uL Plt Count 458 H (140-440) X 10*3/uL Immature Gran # 0.06 H (0.00-0.04) X 10*3/uL Neutrophils # 10.43 H (1.80-7.70) X 10*3/uL Lymphocytes # 0.64 L (0.90-5.00) X 10*3/uL Eosinophils # 0 L (0.04-0.35) X 10*3/uL Carbon Dioxide 28.1 H (20.0-27.5) mmol/L BUN/Creatinine Ratio 24.25 H (12.00-20.00) Ratio Glucose 130 H (70-110) mg/dL Microbiology - Last 24 Hours (Table) 06/16/22 12:19 Bronchial Washings Culture - Preliminary Bronchial Washings - Right 06/16/22 12:19 Fungal Culture - Preliminary Bronchial Washings - Right 06/16/22 12:19 Acid Fast Bacilli Culture - Preliminary Bronchial Washings - Right 06/14/22 11:50 Blood Culture - Preliminary Blood No Growth after 48 hours 06/14/22 11:50 Blood Culture - Preliminary Blood No Growth after 48 hours Assessment and Plan Plan: Acute exacerbation of COPD. History of deafness. History of hyperlipidemia. History of hypertension. Osteoarthritis. Stress urinary incontinence. History of diverticular disease. Prior history of pneumonia, 2020. Intermittent nocturnal use of oxygen. Plan: Clinically stable post bronchoscopy The results of the bronchial lavages been negative Continue same treatment for now Patient is having dysphagia and the patient is going to undergo a EGD Personnel Worker on the case The patient can use Trelegy Ellipta from home addition to DuoNeb about treatments [id number] and IV Solu-Medrol. We'll continue to follow.
--- NOTE | 2022-06-17 13:42 | P.CONS ---
History of Present Illness - Reason for Consult Consult date: 06/17/22 Difficulty swallowing Requesting physician: Kay Angulo - Chief Complaint Shortness of breath - History of Present Illness This is a pleasant 86-year-old female who presented to the emergency department 3 days ago with complaints of shortness of breath. She has a past medical history including COPD alcoholic liver disease, hypertension hyperlipidemia and osteoarthritis. Patient was admitted to the hospital with COPD since her patient and underwent bronchoscopy yesterday with pulmonology. The patient is currently on Augmentin and Solu-Medrol. She states that her breathing is easier today. She does state that she's been having some difficulty with swallowing which he has had in the past. She underwent a evaluation by the speech therapist with normal swallow study. Patient states she has no problems with soft foods however her foods like chicken she has a hard time with and feels like it gets stuck and sometimes even causes pain. She states that it does not cause her to vomit, if she drinks some fluids and will eventually go down. Again she does have a history of similar symptoms in the past and underwent an EGD in [address] Lehman chronic cough and dysphagia. Findings were small sliding-type hiatal hernia, no evidence of esophagitis or esophageal stricture. Patient is currently sitting up in bed eating pancakes without any difficulty. She denies any abdominal pain, nausea or vomiting. Denies any shortness of breath or chest pain at this time. Review of Systems REVIEW OF SYSTEMS: CARDIOPULMONARY: No chest pain or presented with shortness of breath and cough. COPD exacerbation. Gastrointestinal: No abdominal pain or epigastric pain. Patient states she does have some difficulty with swallowing solids such as chicken or beef. Can swallow soft foods without any problems. No nausea or vomiting. No hematemesis, coffee-ground emesis. No rectal bleeding, or melena. States associated weight loss 30 pounds over last several months. GENITOURINARY: No dysuria or hematuria. MUSCULOSKELETAL: Reports normal range of motion. SKIN: No rashes. No jaundice. ENDOCRINE: No chills, fevers. No excessive weight gain or loss. No polydipsia or polyuria. PSYCHIATRIC: Unremarkable. NEUROLOGY: No change in mental status. Denies dizziness, headache. ENT: Vision unremarkable. CONSTITUTIONAL: No recent weight loss. No fever, chills, night sweats. 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 Last Myocardial Infarction Date:: 40 years ago History of Any Multi-Drug Resistant Organisms: None Reported Past Surgical History: Cholecystectomy, Hysterectomy, Orthopedic Surgery Additional Past Surgical History / Comment(s): KNEE arthroscopy, COLONOSCOPY- LARGE POLYP REMOVED, EGD, cataracts, Right TKA (10/21/21) Past Anesthesia/Blood Transfusion Reactions: No Reported Reaction Additional Past Anesthesia/Blood Transfusion Reaction / Comm: No hx blood transfusion. Past Psychological History: No Psychological Hx Reported Additional Psychological History / Comment(s): She is independent. Smoking Status: Former smoker Past Alcohol Use History: Occasional Additional Past Alcohol Use History / Comment(s): Started smoking 1964, quit smoking 1989, smoked 1ppd. Past Drug Use History: None Reported Additional Drug Use History / Comment(s): Uses cbd oil occ for arthritic pain. Aware no use 24 hrs prior to procedure. - Past Family History Sister(s) Family Medical History: Cancer Additional Family Medical History / Comment(s): #1 sister colon cancer, # 2 sister lung cancer. Father Family Medical History: Cancer Additional Family Medical History / Comment(s): Prostate cancer. Mother Family Medical History: Asthma Additional Family Medical History / Comment(s): Heart problems. Medications and Allergies Home Medications Medication Instructions Recorded Confirmed Type Losartan Potassium 100 mg PO DAILY 10/30/14 06/14/22 History Fluticasone Propion/Salmeterol 1 puff INHALATION RT-BID PRN 10/20/21 06/14/22 History [Advair 500-50 Diskus] Rosuvastatin [Crestor] 10 mg PO DAILY 10/20/21 06/14/22 History Tiotropium 18 Mcg/Puff [Spiriva] 1 puff INHALATION RT-DAILY 10/20/21 06/14/22 History Albuterol Nebulized [Ventolin 2.5 mg INHALATION RT-QID 11/07/21 06/14/22 History Nebulized] Fluticasone/Umeclidin/Vilanter 1 puff INHALATION RT-DAILY 05/14/22 06/14/22 History [Trelegy Ellipta 100-62.5-25] Ipratropium-Albuterol Nebulize 3 ml INHALATION RT-Q4H 05/14/22 06/14/22 History [Duoneb 0.5 mg-3 mg/3 ml Soln] Metoprolol Succinate (ER) [Toprol 25 mg PO DAILY 05/14/22 06/14/22 History XL] Montelukast [Singulair] 10 mg PO DAILY 05/14/22 06/14/22 History guaiFENesin-Coden 100-10MG/5ML 5 ml PO Q6H PRN 05/14/22 06/14/22 History [Robitussin AC] Albuterol Inhaler [Ventolin Hfa 2 puff INHALATION RT-Q4H PRN #1 05/19/22 06/14/22 Rx Inhaler] each Ascorbic Acid [Vitamin C] 1,000 mg PO DAILY #30 tab 05/19/22 06/14/22 Rx Cholecalciferol [Vitamin D3 (25 50 mcg PO DAILY #30 tab 05/19/22 06/14/22 Rx Mcg = 1000 Iu)] Famotidine [Pepcid] 20 mg PO DAILY #30 tab 05/19/22 06/14/22 Rx Zinc Sulfate [Orazinc] 220 mg PO DAILY #30 cap 05/19/22 06/14/22 Rx Allergies Allergy/AdvReac Type Severity Reaction Status Date / Time hydrocodone bitartrate AdvReac states Verified 06/14/22 13:06 [From Vicodin] "doesn't make me feel good" prednisone AdvReac Hallucinati Verified 06/14/22 13:06 ons Physical Exam Vitals: Vital Signs Temp Pulse Pulse Resp BP Pulse Ox 06/17/22 02:00 97.9 F 82 20 133/79 99 06/16/22 22:18 102 H 06/16/22 22:17 102 H 06/16/22 22:02 105 H 06/16/22 20:00 98.4 F 99 20 132/76 90 L 06/16/22 16:15 104 H 06/16/22 16:07 100 06/16/22 13:16 98.1 F 102 H 20 168/71 91 L 06/16/22 13:02 110 H 06/16/22 12:54 116 H 06/16/22 08:43 96 06/16/22 08:35 100 06/16/22 08:34 100 06/16/22 08:20 94 97 Intake and Output 06/16/22 06/17/22 06/17/22 22:59 06:59 14:59 Other: Voiding Method Toilet # Voids 1 3 Weight 72 kg General appearance: The patient is alert, oriented, appears in no acute distress. HET: Head is normocephalic and atraumatic. Conjunctiva pink. Sclera anicteric. Neck: Supple without lymphadenopathy. Trachea midline. Heart: S1 S2. Regular rate and rhythm. Lungs: Normal expansion, lung sounds diminished, with inspiratory respiratory and expiratory wheeze. Abdomen: Soft, nontender, nondistended with bowel sounds. No guarding or rigidity. Skin: No rashes. No jaundice. Extremities: Normal skin color and turgor. No pedal edema. Neurological: No focal deficits. Alert and oriented x3. Results CBC & Chem 7: 06/17/22 06:29 06/17/22 06:29 Labs: Microbiology - Last 24 Hours (Table) 06/16/22 12:19 Bronchial Washings Culture - Preliminary Bronchial Washings - Right 06/16/22 12:19 Fungal Culture - Preliminary Bronchial Washings - Right 06/16/22 12:19 Acid Fast Bacilli Culture - Preliminary Bronchial Washings - Right 06/14/22 11:50 Blood Culture - Preliminary Blood No Growth after 48 hours 06/14/22 11:50 Blood Culture - Preliminary Blood No Growth after 48 hours Assessment and Plan (1) Dysphagia Narrative/Plan: A 6-year-old female who presented to the hospital with complaints of shortness of breath with a COPD exacerbation, also with complaints of dysphagia to solid food such as meats. Patient with complaints of 30 pound weight loss over the last several months. Has had similar symptoms in the past and underwent an EGD in [address] Lehman that just showed a small hiatal hernia. Patient underwent a swallow evaluation during this hospitalization and had a normal swallow study but suggested evaluation for possible esophageal dysmotility. Unclear etiology at this time recommend proceeding with EGD which was offered as an outpatient however patient would like to get it done while she is here in the hospital. Possible etiologies include esophageal stricture, esophagitis, gastritis, esophageal dysmotility or other possible etiologies. Patient scheduled to undergo EGD tomorrow. Diet as tolerated. Current Visit: Yes Status: Acute Code(s): R13.10 - DYSPHAGIA, UNSPECIFIED SNOMED Code(s): 47238304 (2) COPD exacerbation Current Visit: Yes Status: Acute Code(s): J44.1 - CHRONIC OBSTRUCTIVE PULMONARY DISEASE W (ACUTE) EXACERBATION SNOMED Code(s): 056602528 Plan: 1. Continue symptomatic and supportive care 2. Continue with recommendations from pulmonology 3. Diet as tolerated, nothing by mouth after midnight 4. Protonix 40 mg daily 5. Discussed with patient to Up meat and small pieces, followed by water 6. Plan for EGD tomorrow Thank you for this consultation, we will continue to follow. Dr. Haroldo Lehman I agree with the dictator's note, documented as a scribe by Josee Elizondo.
[2022-06-17] MEDS: LACTATED RINGERS 1,000 ML IV SCH (17:23)
--- NOTE | 2022-06-17 23:16 | PN ---
PROGRESS NOTE DATE OF SERVICE: 06/17/2022 SUBJECTIVE: This 86-year-old woman , who was admitted after significant COPD and secretions, had bronchoscopy, and cultures are negative so far. The patient also planned to undergo EGD today. No chest pain. No palpitations. No fever. OBJECTIVE: VITAL SIGNS: Pulse is 81, blood pressure 141/90, respirations 18. CHEST: Few scattered rhonchi and crackles. ABDOMEN: Soft. NERVOUS SYSTEM: Nonfocal. LABORATORY DATA: Reviewed. ASSESSMENT: 1. Chronic obstructive pulmonary disease acute exacerbation with acute purulent tracheobronchitis and failure of outpatient treatment. 2. History of recent bilateral pneumonia. 3. Status post bronchoscopy. 4. Rule out aspiration. 5. History of recent COVID-19 infection. 6. History of asthma. 7. Multiple medical issues. RECOMMENDATIONS: I recommend to continue current medications and symptomatic treatment. Otherwise, follow the cultures. Continue with the bronchodilators, steroids, and GI evaluation, possibly endoscope. Further recommendations to follow. MMODL / IJN: [id number] /
[2022-06-18] MEDS: PANTOPRAZOLE 40 MG TABLET PO SCH (05:21)
[2022-06-18] MEDS: methylPREDNISolone SOD SUCCI 125 MG/2 ML VIAL IV SCH (05:22)
[2022-06-18] MEDS: FORMOTEROL FUMARATE 20 MCG/2 ML NEBU INHALATION SCH ×2 (07:22→20:52)
[2022-06-18] MEDS: IPRATROPIUM-ALBUTEROL 3 ML NEB INHALATION SCH ×4 (07:22→20:52)
[2022-06-18] MEDS: BUDESONIDE 1 MG/2 ML NEBU INHALATION SCH ×2 (07:22→20:51)
[2022-06-18] MEDS: HEPARIN SODIUM,PORCINE/PF 5,000 UNIT/0.5 ML SYRINGE SQ SCH ×2 (08:18→21:25)
[2022-06-18] MEDS: ZINC SULFATE 220 MG CAP PO SCH (08:18)
[2022-06-18] MEDS: MONTELUKAST 10 MG TAB PO SCH (08:18)
[2022-06-18] MEDS: ASCORBIC ACID 500 MG TAB PO SCH (08:21)
[2022-06-18] MEDS: ATORVASTATIN 20 MG TAB PO SCH (08:21)
[2022-06-18] MEDS: CHOLECALCIFEROL 25 MCG (1000 IU) TABLET PO SCH (08:21)
[2022-06-18] MEDS: METOPROLOL SUCCINATE (ER) 25 MG TAB.ER.24H PO SCH (08:23)
[2022-06-18] MEDS: FAMOTIDINE 20 MG TAB PO SCH (08:23)
[2022-06-18] MEDS: LOSARTAN 50 MG TAB PO SCH (08:23)
[2022-06-18] MEDS: AMOXIC-POT CLAV 875-125MG 1 EACH TAB PO SCH ×2 (08:50→21:25)
[2022-06-18 09:50] LABS: Basophils # (A) 0.01 X 10*3/uL (0.00-0.10); Basophils % (A) 0.1 %; Eosinophils # (A) 0 X 10*3/uL (0.04-0.35); Eosinophils % (A) 0 %; HCT 43.6 % (37.2-46.3); Immature Grans, Automated 1.5 %; Lymphocytes % (A) 6.1 %; MCH 30.9 pg (27.0-32.0); MCHC 32.1 g/dL (32.0-37.0); MCV 96.2 fL (80.0-97.0); Mean Platelet Volume 10.4 fL (9.5-12.2); Monocytes # (A) 0.37 X 10*3/uL (0.20-1.00); Monocytes % (A) 2.8 %; NRBC Per 100 WBC 0 /100 WBCS (0.0-0.0); Neutrophils % (A) 89.5 %; Platelet Count 459 X 10*3/uL (140-440); RBC 4.53 X 10*6/uL (4.10-5.20); RDW 13.8 % (11.5-14.5); WBC 13.18 X 10*3/uL (4.50-10.00)
[2022-06-18 10:04] LABS: African American GFR (CKD) 92.2 (60.0-200.0); Anion Gap 9.3 mmol/L (10.00-18.00); BUN/Creat Ratio 25.86 Ratio (12.00-20.00); Blood Urea Nitrogen 18.1 mg/dL (9.0-27.0); Calcium 9.3 mg/dL (8.7-10.3); Carbon Dioxide 27.7 mmol/L (20.0-27.5); Non-African American GFR(CKD) 79.6 (60.0-200.0); Potassium 4.1 mmol/L (3.5-5.5)
--- NOTE | 2022-06-18 11:15 | P.PN ---
Subjective Progress Note Date: 06/18/22 86-year-old black female with a history of COPD. The patient was recently inpatient with a COPD exacerbation. The patient presented to the emergency room on June 14, complaining of shortness of breath. The patient has a history of long-standing tobacco use, although she quit many years ago. The patient came in complaining of shortness of breath, chest congestion, cough, and some phlegm production although she's not producing much in the way of phlegm. She denied any chest pain or chest discomfort. There is no nausea, vomiting, or diarrhea. The patient denied any abdominal pain. The patient denied genitourinary complaints. The patient does request a bronchoscopy. We'll schedule her for tomorrow. She feels like she needs one because she can't cough up the phlegm was in her chest. CBC is completely normal. Coagulation studies are normal. Sodium 141, potassium 3.8, chlorides 106, CO2 31, anion gap 4, BUN 13, and creatinine 0.57. Testing for coronavirus was negative. Chest x-ray showed changes of COPD, but no acute disease. The chest x-ray was shown to the patient. Her medications are appropriate. Evaluating this patient today on 06/16/2022 on a general medical floor. She is currently nothing by mouth for planned bronchoscopy today. Overall, she is resting comfortably up in bed, on 2 L nasal cannula, in no acute distress. She continues to have a persistent congested cough with limited sputum production. Shortness of breath has improved. Blood cultures are negative at 24 hours. No new labs today. no new x-ray to review today. She continues to be managed on DuoNeb inhalation, budesonide inhalation, formoterol inhalation, IV Solu-Medrol, and Singulair. She is also receiving Augmentin for empiric antibiotic therapy. Patient has remained afebrile overnight, and vital signs are stable. No IV maintenance fluids infusing. 06/17/2022, radha is feeling better in terms of her COPD exacerbation. She is post bronchoscopy and lavage and the cultures are negative and the patient is currently on Augmentin. At the same time, the patient is taken IV Solu-Medrol 60 mg every 6 hours, DuoNeb about treatments [id number]. She also is having some difficulty with her swallow and she was seen by gastroenterology and the patient is going to undergo a EGD within the next 24 hours. Her pro calcitonin level was low at 0.04. Her Covid 19 testing was negative. Electrolytes were normal. WBC count was 11.4 with a hemoglobin of 15.5. 06/18/2022, the patient is overall respiratory status is stable and the patient is awake compared EGD to be done. Doing well. Remains on IV Solu-Medrol and she should be able to taper to prednisone burst taper. She is on bronchodilators around the clock. No other issues for now. Objective - Vital Signs Vital signs: Vital Signs Temp 98.5 F 06/18/22 07:05 Pulse 76 06/18/22 11:08 Resp 18 06/18/22 09:11 BP 156/93 06/18/22 07:05 Pulse Ox 88 L 06/18/22 07:24 FiO2 21 06/18/22 07:24 Intake & Output 06/17/22 06/18/22 06/18/22 18:59 06:59 18:59 Weight 70.715 kg Other: Voiding Method Toilet Toilet # Voids 3 3 - Exam No acute distress, oriented 3. Currently on 2 L. No respiratory distress, audible wheezing, or use of accessory muscles. The patient does have persistent paroxysmal cough. HEENT examination is grossly unremarkable. Neck supple. Full range of motion. No adenopathy thyromegaly or neck vein distention. Cardiovascular examination reveals regular rhythm rate. S1-S2 normal. No S3 or S4. No discernible murmur noted. Heart sounds are distant. Heart rate 96 bpm. Lungs reveal inspiratory and expiratory wheezes and rhonchi. Breath sounds are equal bilaterally but diminished throughout. No crackles. Currently on 2 L nasal cannula. Abdomen soft bowel sounds are heard. No masses or tenderness. Extremities are intact. No cyanosis clubbing or edema. Skin is without rash or lesion. Neurologic examination is brief but nonfocal. - Labs CBC & Chem 7: 06/18/22 06:13 06/18/22 06:13 Labs: Abnormal Lab Results - Last 24 Hours (Table) 06/18/22 06/18/22 Range/Units 06:13 06:13 WBC 13.18 H (4.50-10.00) X 10*3/uL Plt Count 459 H (140-440) X 10*3/uL Immature Gran # 0.20 H (0.00-0.04) X 10*3/uL Neutrophils # 11.80 H (1.80-7.70) X 10*3/uL Lymphocytes # 0.80 L (0.90-5.00) X 10*3/uL Eosinophils # 0 L (0.04-0.35) X 10*3/uL Carbon Dioxide 27.7 H (20.0-27.5) mmol/L Anion Gap 9.30 L (10.00-18.00) mmol/L BUN/Creatinine Ratio 25.86 H (12.00-20.00) Ratio Glucose 126 H (70-110) mg/dL Microbiology - Last 24 Hours (Table) 06/16/22 12:19 Gram Stain - Final Bronchial Washings - Right Bronchial Washings Culture - Final 06/16/22 12:19 Acid Fast Bacilli Smear - Final Bronchial Washings - Right Acid Fast Bacilli Culture - Preliminary 06/14/22 11:50 Blood Culture - Preliminary Blood No Growth after 72 hours 06/14/22 11:50 Blood Culture - Preliminary Blood No Growth after 72 hours Assessment and Plan Plan: Acute exacerbation of COPD. clinically improving History of deafness. History of hyperlipidemia. History of hypertension. Osteoarthritis. Stress urinary incontinence. History of diverticular disease. Prior history of pneumonia, 2020. Intermittent nocturnal use of oxygen. Plan: Clinically stable post bronchoscopy, awaiting an EGD The results of the bronchial lavages been negative Continue same treatment for now Stop the IV Solu-Medrol and start the patient a prednisone burst taper Patient is having dysphagia and the patient is going to undergo a EGD Communications Consultant on the case The patient can use Javy Limon from home addition to Mary about treatments [id number] We'll continue to follow. Possible home today following the EGD
[2022-06-18] MEDS ORDERED: PROPOFOL 10 MG/ML 20 ML VIAL IV ONE (11:29)
[2022-06-18] MEDS ORDERED: IV FLUID CONTINUATION 500 ML IV ONE (11:43)
--- NOTE | 2022-06-18 11:43 | P.PCN ---
Date of Procedure: 06/18/22 Procedure(s) Performed: BRIEF HISTORY: Patient is a 86-year-old, pleasant, half intermittent female was admitted hospital with pneumonia. While in the hospital has been complaining of dysphagia to solids for the last several months duration and has been progressively getting worse. She is scheduled for an upper endoscopy with possible dilation. PROCEDURE PERFORMED: Esophagogastroduodenoscopy with dilation PREOPERATIVE DIAGNOSIS: Progressive dysphagia to solids IV sedation per anesthesia. PROCEDURE: After informed consent was obtained, the patient was brought into the endoscopy unit. IV sedation was administered by Anesthesia under continuous monitoring. Initially the Olympus GIF-140 video endoscope was inserted into the mouth. Esophagus intubated without any difficulty. It was gradually advanced into the stomach and duodenum and carefully examined. The bulb and the second part of the duodenum appeared normal. The scope at this time was withdrawn to the stomach, adequately insufflated with air, and upon careful examination, mucosa of the antrum,is mild diffuse gastritis. The body, cardia and the fundus appeared normal. The scope was then withdrawn into the esophagus. The GE junction was located at 39 cm from the incisors. was a small hiatal hernia noted. There was a distal esophageal Schatzki's ring identified at the GE junction which was dilated using 15-18 mm TTS balloon in a sequential fashion for 60 seconds. The rest of the esophagus appeared normal. There were no erosions or ulcerations seen and the patient tolerated the procedure well. IMPRESSION: 1. Distal esophageal Schatzki's ring status post balloon dilation using 15-18 mm TTS balloon as described above. 2. Small hiatal hernia RECOMMENDATIONS: The findings of this examination were discussed with the patient . she will be remain on clear liquids today. Advance diet tomorrow morning. Continue with Protonix 40 mg daily.
[2022-06-18 12:08] LABS: Appearance,BF Slightly Cloudy
[2022-06-18] MEDS: LACTATED RINGERS 1,000 ML IV SCH (12:12)
--- NOTE | 2022-06-18 20:22 | P.PN ---
Subjective Progress Note Date: 06/18/22 This is a pleasant 86-year-old female was recently admitted with increasing shortness of breath with significant COPD and continued secretions and being followed by pulmonary underwent bronchoscopy with washings sent and so far negative. Patient is continued on oral antibiotics and also having some d ysphasia and was seen and evaluated by GI recommending EGD. Patient is currently nothing by mouth and scheduled for EGD this afternoon. Patient is afebrile denies chest pain or shortness of breath and denies any nausea or vomiting. Review of systems: Constitutional: No reports of fatigue, fever, or chills Cardiovascular: No reports of chest pain or palpitations Respiratory: No reports of worsening shortness of breath or cough GI: no reports of nausea, no reports of of vomiting, reports having difficulty with swallowing and discomfort : No reports of dysuria or retention Neurovascular: No reports of generalized weakness, All medications have been reviewed Active Medications Acetaminophen (Acetaminophen Tab 325 Mg Tab) 650 mg PO Q6HR PRN PRN Reason: Fever and/ or Pain Last Admin: 06/16/22 15:06 Dose: 650 mg Albuterol/Ipratropium (Ipratropium-Albuterol 3 Ml Neb) 3 ml INHALATION RT-QID [facility] Last Admin: 06/18/22 16:42 Dose: 3 ml Amoxicillin/Clavulanate Potassium (Amoxic-Pot Clav 875-125mg 1 Each Tab) 1 each PO Q12HR [facility]; Protocol Stop: 06/19/22 09:01 Last Admin: 06/18/22 08:50 Dose: 1 each Ascorbic Acid (Ascorbic Acid 500 Mg Tab) 1,000 mg PO DAILY [facility] Last Admin: 06/18/22 08:21 Dose: Not Given Atorvastatin Calcium (Atorvastatin 20 Mg Tab) 20 mg PO DAILY [facility] Last Admin: 06/18/22 08:21 Dose: Not Given Budesonide (Budesonide 1 Mg/2 Ml Nebu) 1 mg INHALATION RT-BID [facility] Last Admin: 06/18/22 07:22 Dose: 1 mg Cholecalciferol (Cholecalciferol 25 Mcg (1000 Iu) Tablet) 50 mcg PO DAILY [facility] Last Admin: 06/18/22 08:21 Dose: Not Given Famotidine (Famotidine 20 Mg Tab) 20 mg PO DAILY [facility] Last Admin: 06/18/22 08:23 Dose: 20 mg Formoterol Fumarate (Formoterol Fumarate 20 Mcg/2 Ml Nebu) 20 mcg INHALATION RT-BID [facility] Last Admin: 06/18/22 07:22 Dose: 20 mcg Guaifenesin/Codeine Phosphate (Guaifenesin-Coden 100-10mg/5ml 10 Ml Cup) 5 ml PO Q6H PRN PRN Reason: Cough Last Admin: 06/16/22 00:55 Dose: 5 ml Heparin Sodium (Porcine) (Heparin Sodium,Porcine/Pf 5,000 Unit/0.5 Ml Syringe) 5,000 unit SQ Q12HR [facility] Last Admin: 06/18/22 08:18 Dose: Not Given Lactated Ringer's (Lactated Ringers) 1,000 mls @ 20 mls/hr IV .Q24H [facility] Last Admin: 06/18/22 12:12 Dose: Not Given Losartan Potassium (Losartan 50 Mg Tab) 100 mg PO DAILY [facility] Last Admin: 06/18/22 08:23 Dose: 100 mg Metoprolol Succinate (Metoprolol Succinate (Er) 25 Mg Tab.Er.24h) 25 mg PO DAILY [facility] Last Admin: 06/18/22 08:23 Dose: 25 mg Montelukast Sodium (Montelukast 10 Mg Tab) 10 mg PO DAILY [facility] Last Admin: 06/18/22 08:18 Dose: Not Given Naloxone HCl (Naloxone 0.4 Mg/Ml 1 Ml Vial) 0.2 mg IVP Q2M PRN PRN Reason: Opioid Reversal Pantoprazole Sodium (Pantoprazole 40 Mg Tablet) 40 mg PO AC-BRKFST [facility] Last Admin: 06/18/22 05:21 Dose: 40 mg Prednisone (Prednisone 20 Mg Tab) 40 mg PO DAILY [facility] Zinc Sulfate (Zinc Sulfate 220 Mg Cap) 220 mg PO DAILY [facility] Last Admin: 06/18/22 08:18 Dose: Not Given PHYSICAL EXAMINATION: GENERAL: The patient is alert and oriented x4, Well developed, well nourished. HEENT: Pupils are round and equally reacting to light. EOMI. no scleral icterus. No conjunctival pallor. Normocephalic, atraumatic. No pharyngeal erythema. No thyromegaly. CARDIOVASCULAR: S1 and S2 muffled PULMONARY: diminished breath sounds bilaterally with some scattered rhonchi noted. ABDOMEN: soft. Nontender on exam. non-distended, normoactive bowel sounds. No palpable organomegaly. MUSCULOSKELETAL: No joint swelling or deformity. EXTREMITIES: No cyanosis, clubbing, or pedal edema. NEUROLOGICAL: Gross neurological examination did not reveal any focal deficits. SKIN: No rashes. Assessment: Chronic obstructive pulmonary disease acute exacerbation with acute purulent tracheobronchitis and failure of outpatient treatment History of recent bilateral pneumonia Status post EGD showing distal esophageal Schatzki's ring status post balloon dilatation Small hiatal hernia is noted on EGD Status post bronchoscopy with washings, cultures thus far are negative Ruled out aspiration history of Covid infection recently history of asthma GI prophylaxis DVT prophylaxis Full code Plan: Recommend to continue with current medications and managemen with pulmonary and GI following. Patient is status post bronchoscopy with washings thus far negative and patient is maintained on empiric antibiotics in the form of Augmentin Patient is continued on IV steroids and being transitioned to a prednisone burst taper Patient is status post EGD showing a Schatzki's ring status post dilatation GI recommends clear liquids overnight and will initiate advance in diet in the a.m. and continue on Protonix Recommend continue current medications and will follow-up in the a.m. Possible discharge in 24 hours The impression and plan of care has been dictated by Kay Angulo, nurse practitioner as directed. Dr. Gregory MD I have performed a history and examination and MDM of this patient, discussed the same with the dictator, and agree with the dictator's assessment and plan as written ,documented as a scribe. Based on total visit time, I have performed more than 50% of the visit. Any additional findings or plans will be noted. Objective - Vital Signs Vital signs: Vital Signs Temp 98.1 F 06/18/22 13:15 Pulse 67 06/18/22 16:52 Resp 18 06/18/22 13:15 BP 152/77 06/18/22 13:15 Pulse Ox 99 06/18/22 13:15 FiO2 21 06/18/22 07:24 Intake & Output 06/18/22 06/18/22 06/19/22 06:59 18:59 06:59 Intake Total 400 Balance 400 Weight 70.715 kg Intake: IV 100 Oral 300 Other: Voiding Method Toilet # Voids 3 3 # Bowel Movements 1 - Labs CBC & Chem 7: 06/18/22 06:13 06/18/22 06:13 Labs: Abnormal Lab Results - Last 24 Hours (Table) 06/18/22 06/18/22 Range/Units 06:13 06:13 WBC 13.18 H (4.50-10.00) X 10*3/uL Plt Count 459 H (140-440) X 10*3/uL Immature Gran # 0.20 H (0.00-0.04) X 10*3/uL Neutrophils # 11.80 H (1.80-7.70) X 10*3/uL Lymphocytes # 0.80 L (0.90-5.00) X 10*3/uL Eosinophils # 0 L (0.04-0.35) X 10*3/uL Carbon Dioxide 27.7 H (20.0-27.5) mmol/L Anion Gap 9.30 L (10.00-18.00) mmol/L BUN/Creatinine Ratio 25.86 H (12.00-20.00) Ratio Glucose 126 H (70-110) mg/dL Microbiology - Last 24 Hours (Table) 06/14/22 11:50 Blood Culture - Preliminary Blood No Growth after 96 hours 06/14/22 11:50 Blood Culture - Preliminary Blood No Growth after 96 hours 06/16/22 12:19 Gram Stain - Final Bronchial Washings - Right Bronchial Washings Culture - Final 06/16/22 12:19 Acid Fast Bacilli Smear - Final Bronchial Washings - Right Acid Fast Bacilli Culture - Preliminary
[2022-06-19] MEDS: BUDESONIDE 1 MG/2 ML NEBU INHALATION SCH (07:24)
[2022-06-19] MEDS: IPRATROPIUM-ALBUTEROL 3 ML NEB INHALATION SCH ×2 (07:24→10:40)
[2022-06-19] MEDS: FORMOTEROL FUMARATE 20 MCG/2 ML NEBU INHALATION SCH (07:24)
[2022-06-19 08:22] VITALS: BP 160/83; RESP 18; TEMP 97.6
[2022-06-19] MEDS ORDERED: predniSONE 20 MG TAB PO SCH (09:00)
[2022-06-19] MEDS: METOPROLOL SUCCINATE (ER) 25 MG TAB.ER.24H PO SCH (09:31)
[2022-06-19] MEDS: CHOLECALCIFEROL 25 MCG (1000 IU) TABLET PO SCH (09:31)
[2022-06-19] MEDS: ASCORBIC ACID 500 MG TAB PO SCH (09:31)
[2022-06-19] MEDS: LOSARTAN 50 MG TAB PO SCH (09:32)
[2022-06-19] MEDS: PANTOPRAZOLE 40 MG TABLET PO SCH (09:33)
[2022-06-19] MEDS: MONTELUKAST 10 MG TAB PO SCH (09:33)
[2022-06-19] MEDS: ATORVASTATIN 20 MG TAB PO SCH (09:33)
[2022-06-19] MEDS: ZINC SULFATE 220 MG CAP PO SCH (09:33)
[2022-06-19] MEDS: HEPARIN SODIUM,PORCINE/PF 5,000 UNIT/0.5 ML SYRINGE SQ SCH (09:34)
[2022-06-19] MEDS: AMOXIC-POT CLAV 875-125MG 1 EACH TAB PO SCH (09:34)
[2022-06-19] MEDS: FAMOTIDINE 20 MG TAB PO SCH (09:54)
[2022-06-19 10:53] VITALS: PULSE 76
[2022-06-19] MEDS ORDERED: FLUCONAZOLE 100 MG TAB PO SCH (11:15)
--- NOTE | 2022-06-19 12:43 | P.PN ---
Subjective Progress Note Date: 06/19/22 86-year-old black female with a history of COPD. The patient was recently inpatient with a COPD exacerbation. The patient presented to the emergency room on June 14, complaining of shortness of breath. The patient has a history of long-standing tobacco use, although she quit many years ago. The patient came in complaining of shortness of breath, chest congestion, cough, and some phlegm production although she's not producing much in the way of phlegm. She denied any chest pain or chest discomfort. There is no nausea, vomiting, or diarrhea. The patient denied any abdominal pain. The patient denied genitourinary complaints. The patient does request a bronchoscopy. We'll schedule her for tomorrow. She feels like she needs one because she can't cough up the phlegm was in her chest. CBC is completely normal. Coagulation studies are normal. Sodium 141, potassium 3.8, chlorides 106, CO2 31, anion gap 4, BUN 13, and creatinine 0.57. Testing for coronavirus was negative. Chest x-ray showed changes of COPD, but no acute disease. The chest x-ray was shown to the patient. Her medications are appropriate. Evaluating this patient today on 06/16/2022 on a general medical floor. She is currently nothing by mouth for planned bronchoscopy today. Overall, she is resting comfortably up in bed, on 2 L nasal cannula, in no acute distress. She continues to have a persistent congested cough with limited sputum production. Shortness of breath has improved. Blood cultures are negative at 24 hours. No new labs today. no new x-ray to review today. She continues to be managed on DuoNeb inhalation, budesonide inhalation, formoterol inhalation, IV Solu-Medrol, and Singulair. She is also receiving Augmentin for empiric antibiotic therapy. Patient has remained afebrile overnight, and vital signs are stable. No IV maintenance fluids infusing. 06/17/2022, radha is feeling better in terms of her COPD exacerbation. She is post bronchoscopy and lavage and the cultures are negative and the patient is currently on Augmentin. At the same time, the patient is taken IV Solu-Medrol 60 mg every 6 hours, DuoNeb about treatments [id number]. She also is having some difficulty with her swallow and she was seen by gastroenterology and the patient is going to undergo a EGD within the next 24 hours. Her pro calcitonin level was low at 0.04. Her Covid 19 testing was negative. Electrolytes were normal. WBC count was 11.4 with a hemoglobin of 15.5. 06/18/2022, the patient is overall respiratory status is stable and the patient is awake compared EGD to be done. Doing well. Remains on IV Solu-Medrol and she should be able to taper to prednisone burst taper. She is on bronchodilators around the clock. No other issues for now. 6 2021, the patient is doing well and she is eager to go home. She underwent EGD yesterday and the patient was found to have al Schatzki's ring status post balloon dilation using 15-18 mm TTS balloon. She is doing well for now. No complaints pH is also doing going home on a prednisone burst taper. Objective - Vital Signs Vital signs: Vital Signs Temp 97.6 F 06/19/22 06:55 Pulse 76 06/19/22 10:52 Resp 18 06/19/22 08:00 BP 160/83 06/19/22 06:55 Pulse Ox 93 L 06/19/22 06:55 FiO2 21 06/18/22 07:24 Intake & Output 06/18/22 06/19/22 06/19/22 18:59 06:59 18:59 Intake Total 400 Output Total 0 Balance 400 0 Weight 68.9 kg Intake: IV 100 Oral 300 Output: Urine 0 Other: Voiding Method Toilet Toilet # Voids 3 # Bowel Movements 1 - Exam No acute distress, oriented 3. Currently on 2 L. No respiratory distress, audible wheezing, or use of accessory muscles. The patient does have persistent paroxysmal cough. HEENT examination is grossly unremarkable. Neck supple. Full range of motion. No adenopathy thyromegaly or neck vein distention. Cardiovascular examination reveals regular rhythm rate. S1-S2 normal. No S3 or S4. No discernible murmur noted. Heart sounds are distant. Heart rate 96 bpm. Lungs reveal inspiratory and expiratory wheezes and rhonchi. Breath sounds are equal bilaterally but diminished throughout. No crackles. Currently on 2 L nasal cannula. Abdomen soft bowel sounds are heard. No masses or tenderness. Extremities are intact. No cyanosis clubbing or edema. Skin is without rash or lesion. Neurologic examination is brief but nonfocal. - Labs CBC & Chem 7: 06/18/22 06:13 06/18/22 06:13 Labs: Microbiology - Last 24 Hours (Table) 06/16/22 12:19 Fungal Culture - Preliminary Bronchial Washings - Right [place] albicans 06/14/22 11:50 Blood Culture - Preliminary Blood No Growth after 96 hours 06/14/22 11:50 Blood Culture - Preliminary Blood No Growth after 96 hours 06/16/22 12:19 Gram Stain - Final Bronchial Washings - Right Bronchial Washings Culture - Final Assessment and Plan Plan: Acute exacerbation of COPD. clinically improving Schatzki's ring status post balloon dilation using 15-18 mm TTS balloon History of deafness. History of hyperlipidemia. History of hypertension. Osteoarthritis. Stress urinary incontinence. History of diverticular disease. Prior history of pneumonia, 2020. Intermittent nocturnal use of oxygen. Plan: The results of the bronchial lavages been negative Continue same treatment for now prednisone burst taper Trelegy Ellipta on an outpatient basis in addition to the DuoNeb neb treatments [id number] The patient can use Trelegy Ellipta from home addition to DuoNeb about treatments [id number] Possible home today.
[2022-06-19 13:45] VITALS: BMI 23.8
--- NOTE | 2022-06-19 15:54 | P.PN ---
Subjective Progress Note Date: 06/19/22 Principal diagnosis: Dysphagia This is a pleasant 86-year-old female who presented to the emergency department 3 days ago with complaints of shortness of breath. She has a past medical history including COPD alcoholic liver disease, hypertension hyperlipidemia and osteoarthritis. Patient was admitted to the hospital with COPD since her patient and underwent bronchoscopy yesterday with pulmonology. The patient is currently on Augmentin and Solu-Medrol. She states that her breathing is easier today. She does state that she's been having some difficulty with swallowing w hich he has had in the past. She underwent a evaluation by the speech therapist with normal swallow study. Patient states she has no problems with soft foods however her foods like chicken she has a hard time with and feels like it gets stuck and sometimes even causes pain. She states that it does not cause her to vomit, if she drinks some fluids and will eventually go down. Again she does have a history of similar symptoms in the past and underwent an EGD [place] [address] Lehman chronic cough and dysphagia. Findings were small sliding-type hiatal hernia, no evidence of esophagitis or esophageal stricture. 06/19/2022: Patient seen and examined today as a follow-up. Yesterday she underwent EGD with findings including distal esophageal Schatzki ring status post dilation and small hiatal hernia. Patient is tolerating clear liquid diet. She denies any difficulty with swallowing. She denies any abdominal pain, nausea or vomiting. Objective - Vital Signs Vital signs: Vital Signs Temp 97.4 F L 06/19/22 01:55 Pulse 78 06/19/22 07:30 Resp 16 06/19/22 01:55 BP 150/85 06/19/22 01:55 Pulse Ox 93 L 06/19/22 01:55 FiO2 21 06/18/22 07:24 Intake & Output 06/18/22 06/19/22 06/19/22 18:59 06:59 18:59 Intake Total 400 Output Total 0 Balance 400 0 Weight 68.9 kg Intake: IV 100 Oral 300 Output: Urine 0 Other: Voiding Method Toilet # Voids 3 # Bowel Movements 1 - Exam General appearance: The patient is alert, oriented, appears in no acute distress. HET: Head is normocephalic and atraumatic. Conjunctiva pink. Sclera anicteric. Neck: Supple without lymphadenopathy. Abdomen: Soft, nontender, nondistended with bowel sounds. No guarding or rigidity. Extremities: Normal skin color and turgor. No pedal edema Skin: No rashes, no jaundice Neurological: No focal deficits. Alert and oriented. - Labs CBC & Chem 7: 06/18/22 06:13 06/18/22 06:13 Labs: Abnormal Lab Results - Last 24 Hours (Table) 06/18/22 06/18/22 Range/Units 06:13 06:13 WBC 13.18 H (4.50-10.00) X 10*3/uL Plt Count 459 H (140-440) X 10*3/uL Immature Gran # 0.20 H (0.00-0.04) X 10*3/uL Neutrophils # 11.80 H (1.80-7.70) X 10*3/uL Lymphocytes # 0.80 L (0.90-5.00) X 10*3/uL Eosinophils # 0 L (0.04-0.35) X 10*3/uL Carbon Dioxide 27.7 H (20.0-27.5) mmol/L Anion Gap 9.30 L (10.00-18.00) mmol/L BUN/Creatinine Ratio 25.86 H (12.00-20.00) Ratio Glucose 126 H (70-110) mg/dL Microbiology - Last 24 Hours (Table) 06/14/22 11:50 Blood Culture - Preliminary Blood No Growth after 96 hours 06/14/22 11:50 Blood Culture - Preliminary Blood No Growth after 96 hours 06/16/22 12:19 Gram Stain - Final Bronchial Washings - Right Bronchial Washings Culture - Final Assessment and Plan (1) Dysphagia Narrative/Plan: 86-year-old female who presented to the hospital with complaints of shortness of breath with a COPD exacerbation, also with complaints of dysphagia to solid food such as meats. Patient with complaints of 30 pound weight loss over the last several months. Has had similar symptoms in the past and underwent an EGD in [address] Lehman that just showed a small hiatal hernia. Patient underwent a swallow evaluation during this hospitalization and had a normal swallow study but suggested evaluation for possible esophageal dysmotility. Unclear etiology at this time recommend proceeding with EGD which was offered as an outpatient however patient would like to get it done while she is here in the hospital. Possible etiologies include esophageal stricture, esophagitis, gastritis, esophageal dysmotility or other possible etiologies. Patient scheduled to under go EGD tomorrow. Diet as tolerated. Patient status post EGD with findings of distal esophageal Schatzki ring status post dilation and small hiatal hernia. Patient given clear liquid diet and advanced as tolerated. Status: Acute Code(s): R13.10 - DYSPHAGIA, UNSPECIFIED SNOMED Code(s): 68376632 (2) COPD exacerbation Status: Acute Code(s): J44.1 - CHRONIC OBSTRUCTIVE PULMONARY DISEASE W (ACUTE) EXACERBATION SNOMED Code(s): 840345806 Plan: 1. Continue symptomatic and supportive care 2. Continue with recommendations from pulmonology 3. Advance to regular diet 4. Protonix 40 mg daily 5. Discussed with patient to Up meat and small pieces, followed by water Thank you for this consultation, she patient is cleared from gastroenterology for discharge. We will sign off at this time. Dr. Haroldo Lehman I agree with the dictator's note, documented as a scribe by Josee Elizondo.
--- NOTE | 2022-06-20 16:19 | P.DS ---
Providers Date of admission: 06/14/22 14:09 Expected date of discharge: 06/19/22 Attending physician: Yao Castañeda MD Consults: 06/14/22 14:09 Consult Physician Routine Consulting Provider: Da Gilbert Consult Reason/Comments: COPD exacerbation Do you want consulting provider notified?: Yes 06/16/22 14:46 Consult Physician Urgent Consulting Provider: Meenu Lehman Consult Reason/Comments: swallowing difficulties, seen by speech, poss esophagram Do you want consulting provider notified?: Yes Primary care physician: [facility] Course: Final diagnosis Chronic obstructive pulmonary disease acute exacerbation with acute purulent tracheobronchitis and failure of outpatient treatment History of recent bilateral pneumonia Status post EGD showing distal esophageal Schatzki's ring status post balloon dilatation Small hiatal hernia is noted on EGD Status post bronchoscopy with washings, cultures with po Ruled out aspiration history of Covid infection recently history of asthma GI prophylaxis DVT prophylaxis Full code Discharge disposition Patient is being discharged in a stable condition with guarded prognosis to home . Patient will follow-up with Dr. Shine in the outpatient setting upon discharge. Patient is to follow up with pulmonary Dr. Richardson as scheduled. Total time taken is greater than 35 minutes. Hospital course This is a 86-year-old female who was recently admitted with increasing shortness of breath and congestion and feelings of difficulty with swallowing. Patient was being followed by pulmonary along with GI and also being treated for acute COPD exacerbation. Patient is status post bronchoscopy with some culture showing po and will continue Diflucan to complete the course. 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 Richardson. Patient underwent EGD with Dr. Lehman feeling a shatzkis ring and is status post balloon dilatation. Patient has been cleared by consultations and will be continued on Protonix daily. Currently no reports of chest pain, shortness of breath, or palpitations. Patient is afebrile. No reports of nausea or vomiting and patient is tolerating diet. Patient will be discharged home today. Guarded prognosis. Physical exam: Gen: This is a 6-year-old female who is awake, alert and oriented 3, well- developed, well-nourished HEENT: Head is atraumatic, normocephalic. Pupils equal, round. Sclerae is anicteric. NECK: Supple. No JVD. No lymphadenopathy. No thyromegaly. LUNGS: Diminished Breath sounds bilaterally with some coarse rhonchi. No intercostal retractions. HEART: Regular rate and rhythm. No murmur. ABDOMEN: Soft. Bowel sounds are present. No masses. No tenderness. EXTREMITIES: No pedal edema. No calf tenderness. NEUROLOGICAL: Patient is awake, alert and oriented x3. Cranial nerves 2 through 12 are grossly intact. Please refer to medication reconciliation sheet for a list of medications. The impression and plan of care has been dictated by Kay Angulo, Nurse Practitioner as directed. Dr. Familia MD I have performed a history and examination and MDM of this patient, discussed the same with the dictator, and agree with the dictator's assessment and plan as written ,documented as a scribe. Based on total visit time, I have performed more than 50% of the visit. Patient Condition at Discharge: Fair Plan - Discharge Summary Discharge Rx Participant: No New Discharge Prescriptions: New Fluconazole [Diflucan] 100 mg PO DAILY 7 Days #7 tab predniSONE 10 mg PO DIRECTED #30 tab Pantoprazole [Protonix] 40 mg PO AC-BRKFST 30 Days #30 tab Acetaminophen Tab [Tylenol] 650 mg PO Q6HR PRN tab PRN Reason: Fever And/ Or Pain Continue Losartan Potassium 100 mg PO DAILY Tiotropium 18 Mcg/Puff [Spiriva] 1 puff INHALATION RT-DAILY Fluticasone Propion/Salmeterol [Advair 500-50 Diskus] 1 puff INHALATION RT- BID PRN PRN Reason: Shortness Of Breath guaiFENesin-Coden 100-10MG/5ML [Robitussin AC] 5 ml PO Q6H PRN PRN Reason: Cough Fluticasone/Umeclidin/Vilanter [Trelegy Ellipta 100-62.5-25] 1 puff INHALATION RT-DAILY Metoprolol Succinate (ER) [Toprol XL] 25 mg PO DAILY Ascorbic Acid [Vitamin C] 1,000 mg PO DAILY #30 tab Albuterol Inhaler [Ventolin Hfa Inhaler] 2 puff INHALATION RT-Q4H PRN #1 each PRN Reason: Shortness Of Breath Rosuvastatin [Crestor] 10 mg PO DAILY Albuterol Nebulized [Ventolin Nebulized] 2.5 mg INHALATION RT-QID Ipratropium-Albuterol Nebulize [Duoneb 0.5 mg-3 mg/3 ml Soln] 3 ml INHALATION RT-Q4H Montelukast [Singulair] 10 mg PO DAILY Famotidine [Pepcid] 20 mg PO DAILY #30 tab Cholecalciferol [Vitamin D3 (25 Mcg = 1000 Iu)] 50 mcg PO DAILY #30 tab Discontinued Zinc Sulfate [Orazinc] 220 mg PO DAILY #30 cap Discharge Medication List Losartan Potassium 100 mg PO DAILY 10/30/14 [History] Fluticasone Propion/Salmeterol [Advair 500-50 Diskus] 1 puff INHALATION RT-BID PRN 10/20/21 [History] Rosuvastatin [Crestor] 10 mg PO DAILY 10/20/21 [History] Tiotropium 18 Mcg/Puff [Spiriva] 1 puff INHALATION RT-DAILY 10/20/21 [History] Albuterol Nebulized [Ventolin Nebulized] 2.5 mg INHALATION RT-QID 11/07/21 [History] Fluticasone/Umeclidin/Vilanter [Trelegy Ellipta 100-62.5-25] 1 puff INHALATION RT-DAILY 05/14/22 [History] Ipratropium-Albuterol Nebulize [Duoneb 0.5 mg-3 mg/3 ml Soln] 3 ml INHALATION RT-Q4H 05/14/22 [History] Metoprolol Succinate (ER) [Toprol XL] 25 mg PO DAILY 05/14/22 [History] Montelukast [Singulair] 10 mg PO DAILY 05/14/22 [History] guaiFENesin-Coden 100-10MG/5ML [Robitussin AC] 5 ml PO Q6H PRN 05/14/22 [History] Albuterol Inhaler [Ventolin Hfa Inhaler] 2 puff INHALATION RT-Q4H PRN #1 each 05/19/22 [Rx] Ascorbic Acid [Vitamin C] 1,000 mg PO DAILY #30 tab 05/19/22 [Rx] Cholecalciferol [Vitamin D3 (25 Mcg = 1000 Iu)] 50 mcg PO DAILY #30 tab 05/19/22 [Rx] Famotidine [Pepcid] 20 mg PO DAILY #30 tab 05/19/22 [Rx] Acetaminophen Tab [Tylenol] 650 mg PO Q6HR PRN tab 06/19/22 [Rx] Fluconazole [Diflucan] 100 mg PO DAILY 7 Days #7 tab 06/19/22 [Rx] Pantoprazole [Protonix] 40 mg PO AC-BRKFST 30 Days #30 tab 06/19/22 [Rx] predniSONE 10 mg PO DIRECTED #30 tab 06/19/22 [Rx] Follow up Appointment(s)/Referral(s): Pepe Shine MD [Primary Care Provider] - 06/24/22 10:30 am Buzz Richardson DO [Doctor of Osteopathic Medicine] - 06/19/22 8:30 am Patient Instructions/Handouts: COPD (Chronic Obstructive Pulmonary Disease) (DC) Activity/Diet/Wound Care/Special Instructions: Activity Limited until follow-up Follow-up with primary care provider on discharge Follow-up with pulmonary outpatient Follow-up with GI outpatient as needed Continue medications as prescribed Discharge Disposition: HOME SELF-CARE
== END 2022-06-19 14:41 | disposition home or self-care (01) | DRG 191 ==
LOC: EC 11:04 → 3SCARD 14:09 → 4SSUR 06-15 10:42
PROVIDERS: ADMIT Internal Medicine; ATTEND Internal Medicine
PROC: 0BC48ZZ Extirpation of Matter from Right Upper Lobe Bronchus, Via Natural or Artificial Opening Endoscopic (ICD-10-PCS; 2022-06-16)
PROC: 0BC88ZZ Extirpation of Matter from Left Upper Lobe Bronchus, Via Natural or Artificial Opening Endoscopic (ICD-10-PCS; 2022-06-16)
PROC: 0BCB8ZZ Extirpation of Matter from Left Lower Lobe Bronchus, Via Natural or Artificial Opening Endoscopic (ICD-10-PCS; 2022-06-16)
PROC: 0B9D8ZZ Drainage of Right Middle Lung Lobe, Via Natural or Artificial Opening Endoscopic (ICD-10-PCS; 2022-06-16)
PROC: 0BC98ZZ Extirpation of Matter from Lingula Bronchus, Via Natural or Artificial Opening Endoscopic (ICD-10-PCS; 2022-06-16)
PROC: 0BC68ZZ Extirpation of Matter from Right Lower Lobe Bronchus, Via Natural or Artificial Opening Endoscopic (ICD-10-PCS; 2022-06-16)
PROC: 0D738ZZ Dilation of Lower Esophagus, Via Natural or Artificial Opening Endoscopic (ICD-10-PCS; principal; 2022-06-18 07:30)
DX: J44.1 Chronic obstructive pulmonary disease with (acute) exacerbation (principal); T17.890A Other foreign object in other parts of respiratory tract causing asphyxiation, initial encounter; J44.0 Chronic obstructive pulmonary disease with (acute) lower respiratory infection; J20.9 Acute bronchitis, unspecified; K22.2 Esophageal obstruction; K29.70 Gastritis, unspecified, without bleeding; K44.9 Diaphragmatic hernia without obstruction or gangrene; K76.9 Liver disease, unspecified; K70.9 Alcoholic liver disease, unspecified; M19.90 Unspecified osteoarthritis, unspecified site; N39.3 Stress incontinence (female) (male); Z86.16 Personal history of COVID-19; Z28.311 Partially vaccinated for COVID-19; Z28.21 Immunization not carried out because of patient refusal; Z87.01 Personal history of pneumonia (recurrent); R76.11 Nonspecific reaction to tuberculin skin test without active tuberculosis; Z86.010 Personal history of colon polyps; K57.90 Diverticulosis of intestine, part unspecified, without perforation or abscess without bleeding; Z71.3 Dietary counseling and surveillance; J45.909 Unspecified asthma, uncomplicated; R47.02 Dysphasia; Z87.11 Personal history of peptic ulcer disease; Z20.822 Contact with and (suspected) exposure to COVID-19; Z79.899 Other long term (current) drug therapy; Z96.651 Presence of right artificial knee joint; Z82.5 Family history of asthma and other chronic lower respiratory diseases; Z80.1 Family history of malignant neoplasm of trachea, bronchus and lung; Z80.0 Family history of malignant neoplasm of digestive organs
CPT/HCPCS: 31624; 36415; 43249; 71046; 80048; 80053; 83605; 83735; 83880; 84145; 84484; 85025; 85610; 85730; 87040; 87070; 87102; 87116; 87205; 87206; 87252; 87496; 87498; 87502; 87529; 87634; 87635; 87798; 88108; 88305; 89050; 93005; 94640; 94760; 96372; 96374; 96376; 99291

== ENCOUNTER 2022-09-03 12:20 | Day surgery (SDC) | payer MEDICARE, BC ==
[~2022-09-03 12:20] MED LIST changes: +LIDOCAINE 1% (10MG/ML) FOR IV START INTRADERMA PRN; -MOXIFLOXACIN HCL 0.5% DROPS 3 ML BTL OP ONE; +ONDANSETRON 4 MG/2 ML VIAL IVP PRN; -TETRACAINE 0.5% OPHTH (PF) DROPS 4 ML BTL OP ONE; -TIMOLOL 0.5% OPHTH DROPS 5 ML BTL OP ONE; +fentaNYL (PF) 50 MCG/ML 2 ML AMP IV PRN
[2022-09-03 12:59] VITALS: TEMP 98.3
[2022-09-03] MEDS ORDERED: KETAMINE 10 MG/ML 20 ML VIAL ONE (13:45)
[2022-09-03] MEDS ORDERED: LIDOCAINE 2% INJ 20 MG/ML (2 ML VIAL) ONE (13:45)
[2022-09-03] MEDS ORDERED: fentaNYL (PF) 50 MCG/ML 2 ML AMP ONE (13:45)
[2022-09-03] MEDS ORDERED: PROPOFOL 10 MG/ML 20 ML VIAL IV ONE (13:45)
--- NOTE | 2022-09-03 14:06 | P.PCN ---
Date of Procedure: 09/03/22 Preoperative Diagnosis: COPD, severe Recurrent COPD exacerbation Postoperative Diagnosis: Severe COPD Tracheal bronchomalacia Tracheobronchitis Copiousness respiratory secretions and mucous plugs Procedure(s) Performed: Flexible bronchoscopy Therapeutic airway suctioning Bronchial alveolar lavage Anesthesia: MAC Surgeon: Da Gilbert Estimated Blood Loss (ml): 0 Pathology: other Condition: stable Disposition: same day Operative Findings: This procedure was done in the endoscopy suite under conscious sedation. A timeout was done. A preoperative consent was obtained. The patient is known to have severe COPD and the patient is having recurrent exacerbation and the patient has excessive cough and congestion. This procedure was done under conscious sedation. After achieving adequate sedation, the flexible bronchoscope was introduced through the right nostril and was advanced into the posterior pharynx and larynx. Examination of the upper airway structures were within normal limits. The patient had a normal epiglottis. The arytenoids and the vallecula and the cords were all within normal limits. A total of 2 mL of 1% lidocaine was applied to the vocal cord and following that the flexible bronchoscope was advanced into the upper trachea. Examination of the tracheobronchial tree was done. There was significant degree of tracheal bronchomalacia throughout the airway. At the same time, there was copious amounts of secretions that were thick, cloudy, and purulent and this was occupying the entire trachea in the bilateral mainstem bronchi and the various segments of the lower lobes bilaterally. Therapeutic airway suctioning was done and a total of 15 mL of thick purulent rest or secretions were suctioned out. No underlying bronchial mucosa was quite inflamed and irritated. There was no endobronchial tumors identified. 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 There airway inspection included the entire trachea, bilateral mainstem bronchi, right upper lobe bronchus, bronchus intermedius, right middle lobe and right lower lobe bronchus and the various 10 segments on the right, and exertion the left side included left mainstem bronchus, left upper and left lower lobe bronchus and the various 8 segments on the left. After achieving adequate airway patency a bronchial lavage of the left lower lobe was done. A total of 20 mL of fluid was aspirated from the left lung. Therapeutic airway suctioning was done, bronchoscope was removed and the patient was transferred to recovery in stable condition.
[2022-09-03] MEDS ORDERED: ALBUTEROL NEBULIZED 2.5 MG/3 ML INHALATION STA (14:19)
[2022-09-03 14:49] VITALS: BP 136/78; PULSE 88; RESP 20
== END 2022-09-03 15:00 | disposition home or self-care (01) ==
LOC: ORWHC2ENDO 12:20
PROVIDERS: ATTEND Internal Medicine Critical Care Medicine
DX: J44.9 Chronic obstructive pulmonary disease, unspecified (principal); J98.09 Other diseases of bronchus, not elsewhere classified; J40 Bronchitis, not specified as acute or chronic; I10 Essential (primary) hypertension; E78.5 Hyperlipidemia, unspecified; I27.20 Pulmonary hypertension, unspecified; Z88.8 Allergy status to other drugs, medicaments and biological substances
CPT/HCPCS: 94640; 87252; 87070; 87205; 87075; 87102; 31624; J3010; J2704; J2001; 87496; 87498; 87502; 87529; 87634; 87798; 88108; 88305

== ENCOUNTER 2022-09-25 21:18 | Inpatient (IN) | payer MEDICARE, BC ==
[2022-09-25] MEDS ORDERED: methylPREDNISolone SOD SUCCI 125 MG/2 ML VIAL IV STA (22:22)
--- NOTE | 2022-09-25 22:23 | ED ---
SOB HPI - General Chief Complaint: Shortness of Breath Stated Complaint: Pneumonia Time Seen by Provider: 09/25/22 22:05 Source: patient, RN notes reviewed Mode of arrival: wheelchair Limitations: no limitations - History of Present Illness Initial Comments: Patient is a 86-year-old Elsa female presenting to the emergency room with progressively worsening dyspnea over the last 4-5 days requiring continuous oxygen usage over the last 2 days along with cough and congestion. She typically only has to use oxygen when necessary. She has been utilizing her nebulized treatments as prescribed without any improvement in symptoms. She reports hot flashes as well but denies chills. She reports she was seen by her engineering research manager 5 days ago and symptoms were not as severe as they are currently. She states that she used her nebulizer approximately 1 hour prior to her arrival to the emergency room. She is on prednisone 10 mg every other day which she is tolerating but denies any improvement in her current symptoms. She denies any chest pain not directly related to cough, abdominal pain, nausea, vomiting, headache, dizziness, weakness or chills. In addition to her COPD and asthma history she has a past medical history significant for hypertension, hyperlipidemia, osteoarthritis, diverticulosis, gastric ulcers and hepatic impairment. - Related Data Home Medications Medication Instructions Recorded Confirmed Losartan Potassium 100 mg PO DAILY 10/30/14 09/03/22 Rosuvastatin [Crestor] 10 mg PO HS 10/20/21 09/03/22 Albuterol Nebulized [Ventolin 2.5 mg INHALATION RT-QID 11/07/21 09/03/22 Nebulized] Fluticasone/Umeclidin/Vilanter 1 puff INHALATION RT-DAILY 05/14/22 09/01/22 [Trelegy Ellipta 100-62.5-25] Ipratropium-Albuterol Nebulize 3 ml INHALATION RT-Q4H 05/14/22 09/01/22 [Duoneb 0.5 mg-3 mg/3 ml Soln] Metoprolol Succinate (ER) [Toprol 25 mg PO DAILY 05/14/22 09/03/22 XL] Diltiazem Oral [Cardizem*] 30 mg PO HS 09/01/22 09/03/22 Previous Rx's Medication Instructions Recorded Albuterol Inhaler [Ventolin Hfa 2 puff INHALATION RT-Q4H PRN #1 05/19/22 Inhaler] each Acetaminophen Tab [Tylenol] 650 mg PO Q6HR PRN tab 06/19/22 Ipratropium-Albuterol Nebulize 3 ml INHALATION RT-Q2H PRN each 07/27/22 [Duoneb 0.5 mg-3 mg/3 ml Soln] Allergies Allergy/AdvReac Type Severity Reaction Status Date / Time hydrocodone bitartrate AdvReac states Verified 09/25/22 21:44 [From Vicodin] "doesn't make me feel good" prednisone AdvReac Hallucinati Verified 09/25/22 21:44 ons Review of Systems ROS Statement: Those systems with pertinent positive or pertinent negative responses have been documented in the HPI. ROS Other: All systems not noted in ROS Statement are negative. 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 Last Myocardial Infarction Date:: 40 years ago History of Any Multi-Drug Resistant Organisms: None Reported Past Surgical History: Cholecystectomy, Hysterectomy, Orthopedic Surgery Additional Past Surgical History / Comment(s): KNEE arthroscopy, COLONOSCOPY- LARGE POLYP REMOVED, EGD, cataracts, Right TKA (10/21/21) Past Anesthesia/Blood Transfusion Reactions: No Reported Reaction Additional Past Anesthesia/Blood Transfusion Reaction / Comment(s): No hx blood transfusion. Past Psychological History: No Psychological Hx Reported Smoking Status: Never smoker Past Alcohol Use History: None Reported Past Drug Use History: None Reported - Past Family History Sister(s) Family Medical History: Cancer Additional Family Medical History / Comment(s): #1 sister colon cancer, # 2 sister lung cancer. Father Family Medical History: Cancer Additional Family Medical History / Comment(s): Prostate cancer. Mother Family Medical History: Asthma Additional Family Medical History / Comment(s): Heart problems. General Exam - General Exam Comments Initial Comments: GENERAL: No acute distress, well developed, well nourished. HEENT: Normocephalic, atraumatic. Pupils equal, round, reactive to light. Moist mucous membranes. LUNGS: No respiratory distress. Occasional pursed lip breathing. 2 L nasal cannula intact. Expiratory wheeze throughout. Scattered rhonchi bibasilar. HEART: Regular rate and rhythm without murmur, rub, or gallop. ABDOMEN: Normal bowel sounds. Soft, non-tender, non-distended. BACK: Normal inspection. EXTREMITIES: No edema. No tenderness. Moves all extremities. NEUROLOGIC: Alert & oriented x 3. CN II-XII grossly intact. PSYCHIATRIC: Normal affect and behavior. DERMATOLOGIC: Skin intact, without rashes or lesions noted. Limitations: no limitations Course Vital Signs 09/25/22 09/25/22 09/25/22 21:45 22:29 23:26 Temperature 98.6 F 97.9 F Pulse Rate 93 80 81 Respiratory 18 18 145 H Rate Blood Pressure 147/84 135/96 O2 Sat by Pulse 96 100 95 Oximetry 09/26/22 09/26/22 09/26/22 01:00 01:10 01:19 Temperature Pulse Rate 85 77 80 Respiratory 16 Rate Blood Pressure 150/79 O2 Sat by Pulse 98 Oximetry Medical Decision Making - Medical Decision Making Was pt. sent in by a medical professional or institution (GURU Hickman, BUSINESS PROCESS MODELER, urgent care, hospital, or detention...) When possible be specific @ -Was pt. sent in by a medical professional or institution ([facility]U Hickman, BUSINESS PROCESS MODELER, urgent care, hospital, or detention...) When possible be specific @ -No Did you speak to anyone other than the patient for history (EMS, parent, family, police, friend...)? What history was obtained from this source @ -No Did you review nursing and triage notes (agree or disagree)? Why? @ -I reviewed and agree with nursing and triage notes Were old charts reviewed (outside hosp., previous admission, EMS record, old EKG, old radiological studies, urgent care reports/EKG's, detention records)? Report findings @ -No old charts were reviewed Differential Diagnosis (chest pain, altered mental status, abdominal pain women, abdominal pain men, vaginal bleeding, weakness, fever, dyspnea, syncope, headache, dizziness, GI bleed, back pain, seizure, CVA, palpatations, mental health, musculoskeletal)? @ -Differential Dyspnea: Coronary syndrome, arrhythmia, tamponade, asthma, COPD, pulmonary embolism, pneumonia, pneumothorax, pulmonary effusion, anaphylaxis, diabetic ketoacidosis, flailed chest, pulmonary contusion, diaphragmatic rupture, anemia, neuromuscular, this is not meant to be an all-inclusive list. EKG interpreted by me (3pts min.). @ -Sinus rhythm, ventricular rate 80 bpm, MA interval 154 ms, QRS duration 86 ms, QT/QTC 368/414 ms, PRT axes 59, 44, 60 X-rays interpreted by me (1pt min.). @ -Chest x-ray 2 view: Left basilar obesity consistent with left basilar pneumonia. No pleural effusion or pneumothorax CT interpreted by me (1pt min.). @ -CT chest angiogram: No pulmonary emboli, redemonstration of left basilar infiltrate. U/S interpreted by me (1pt. min.). @ -None done What testing was considered but not performed or refused? (CT, X-rays, U/S, labs)? Why? @ -None What meds were considered but not given or refused? Why? @ -None Did you discuss the management of the patient with other professionals (professionals i.e. , PA, BUSINESS PROCESS MODELER, lab, RT, psych nurse, medical social consultant, junior copywriter, teacher, loan workout officer, senior case manager)? Give summary @ -Yes, spoke with Dr. Neal with [facility] regarding patient's workup and recommendation for admission for COPD exacerbation along with left basilar pneumonia; he is accepting of admission and denies any further orders at this time. Was smoking cessation discussed for >3mins.? @ -No Was critical care preformed (if so, how long)? @ -No Were there social determinants of health that impacted care today? How? (Homelessness, low income, unemployed, alcoholism, drug addiction, transportation, low edu. Level, literacy, decrease access to med. care, custodial, rehab)? @ -No Was there de-escalation of care discussed even if they declined (Discuss DNR or withdrawal of care, Hospice)? DNR status @ -No What co-morbidities impacted this encounter? (DM, HTN, Smoking, COPD, CAD, Cancer, CVA, ARF, Chemo, Hep., AIDS, mental health diagnosis, sleep apnea, morbid obesity)? @ -COPD Was patient admitted / discharged? Hospital course, mention meds given and ro mcgrath, prescriptions, significant lab abnormalities, going to OR and other pertinent info. @ -86-year-old Elsa female presenting to the emergency room with progressively worsening dyspnea over the last 4-5 days requiring continuous oxygen usage over the last 2 days. She typically only has to use oxygen when necessary. She has been utilizing her nebulized treatments as prescribed without any improvement in symptoms. She reports hot flashes as well but denies chills. Lung exam reveals diffuse expiratory wheeze will give Solu-Medrol IV and start workup for dyspnea with chest x-ray, EKG, viral swab, blood cultures, CBC, CMP, d-dimer, lactic acid, magnesium, proBNP, coags, troponin and venous blood gas. CBC with elevated RDW of 17.5 and elevated platelet count 456, no other abnormalities. Coags normal. D-dimer slightly elevated 0.60. Venous blood gases overall stable pH slightly elevated 7.49 normal pCO2 and HCO3. CMP shows elevated glucose 109 elevated BUN 18 normal creatinine carbon dioxide elevated at 31 normal and on And remaining electrolytes magnesium normal liver enzymes normal, troponin negative, proBNP normal, viral swabbing for Covid, influenza an d RSV all negative. Due to elevated d-dimer CTA of chest obtained. Chest x-ray and CT and she'll demonstrate left basilar opacity consistent with left lower lobe pneumonia in the setting of lung sounds and dyspnea. Patient also with significant wheezes persisting despite IV steroids and nebulized treatments. Above findings discussed with patient and she is agreeable for plan for admission for COPD exacerbation along with pneumonia. Spoke with Dr. Neal with [facility] regarding recommendation for admission for COPD exacerbation and left basilar pneumonia. He is accepting of admission and declines any further orders are consult this time. Will admit patient in stable condition to medical surgical unit under [facility] for COPD exacerbation and left basilar pneumonia. Undiagnosed new problem with uncertain prognosis? @ -No Drug Therapy requiring intensive monitoring for toxicity (Heparin, Nitro, Insulin, Cardizem)? @ -No Were any procedures done? @ -No Diagnosis/symptom? @ -COPD exacerbation Acute, or Chronic, or Acute on Chronic? @ -Acute on chronic Uncomplicated (without systemic symptoms) or Complicated (systemic symptoms)? @ -Complicated Side effects of treatment? @ -No Exacerbation, Progression, or Severe Exacerbation? @ -Severe exacerbation Poses a threat to life or bodily function? How? (Chest pain, [place], ND, pneumonia, PE, COPD, DKA, ARF, appy, cholecystitis, CVA, Diverticulitis, Homicidal, Suicidal, threat to staff... and all critical care pts) @ -Yes, risk for hypoxemia due to COPD exacerbation. Diagnosis/symptom? @ -Left basilar pneumonia Acute, or Chronic, or Acute on Chronic? @ -Acute Uncomplicated (without systemic symptoms) or Complicated (systemic symptoms)? @ -Complicated Side effects of treatment? @ -none Exacerbation, Progression, or Severe Exacerbation] @ -no Poses a threat to life or bodily function? @ -Yes, at risk for hypoxemia and sepsis. Case discussed with Dr. Cisneors. - Lab Data Result diagrams: 09/25/22 21:20 09/25/22 21:20 Lab Results 09/25/22 09/25/22 09/25/22 Range/Units 02:00 21:20 21:20 WBC 8.2 (3.8-10.6) k/uL RBC 4.19 (3.80-5.40) m/uL Hgb 13.4 (11.4-16.0) gm/dL Hct 39.0 (34.0-46.0) % MCV 93.1 (80.0-100.0) fL MCH 31.9 (25.0-35.0) pg MCHC 34.3 (31.0-37.0) g/dL RDW 17.5 H (11.5-15.5) % Plt Count 456 H (150-450) k/uL MPV 8.8 Neutrophils % 78 % Lymphocytes % 14 % Monocytes % 6 % Eosinophils % 1 % Basophils % 0 % Neutrophils # 6.4 (1.3-7.7) k/uL Lymphocytes # 1.1 (1.0-4.8) k/uL Monocytes # 0.5 (0-1.0) k/uL Eosinophils # 0.1 (0-0.7) k/uL Basophils # 0.0 (0-0.2) k/uL Anisocytosis Slight PT 10.6 (9.0-12.0) sec INR 1.0 (<1.2) APTT 22.7 (22.0-30.0) sec D-Dimer 0.60 H (<0.60) mg/L FEU VBG pH 7.49 H (7.31-7.41) VBG pCO2 38 (37-51) mmHg VBG HCO3 28 (24-28) mmol/L Sodium (137-145) mmol/L Potassium (3.5-5.1) mmol/L Chloride (98-107) mmol/L Carbon Dioxide (22-30) mmol/L Anion Gap mmol/L BUN (7-17) mg/dL Creatinine (0.52-1.04) mg/dL Est GFR (CKD-EPI)AfAm (>60 ml/min/1.73 sqM) Est GFR (CKD-EPI)NonAf (>60 ml/min/1.73 sqM) Glucose (74-99) mg/dL Plasma Lactic Acid Jace (0.7-2.0) mmol/L Calcium (8.4-10.2) mg/dL Magnesium (1.6-2.3) mg/dL Total Bilirubin (0.2-1.3) mg/dL AST (14-36) U/L ALT (4-34) U/L Alkaline Phosphatase (38-126) U/L Troponin I (0.000-0.034) ng/mL NT-Pro-B Natriuret Pep pg/mL Total Protein (6.3-8.2) g/dL Albumin (3.5-5.0) g/dL Influenza Type A (PCR) (Not Detectd) Influenza Type B (PCR) (Not Detectd) RSV (PCR) (Not Detectd) SARS-CoV-2 (PCR) (Not Detectd) 09/25/22 09/25/22 09/25/22 Range/Units 21:20 21:20 21:20 WBC (3.8-10.6) k/uL RBC (3.80-5.40) m/uL Hgb (11.4-16.0) gm/dL Hct (34.0-46.0) % MCV (80.0-100.0) fL MCH (25.0-35.0) pg MCHC (31.0-37.0) g/dL RDW (11.5-15.5) % Plt Count (150-450) k/uL MPV Neutrophils % % Lymphocytes % % Monocytes % % Eosinophils % % Basophils % % Neutrophils # (1.3-7.7) k/uL Lymphocytes # (1.0-4.8) k/uL Monocytes # (0-1.0) k/uL Eosinophils # (0-0.7) k/uL Basophils # (0-0.2) k/uL Anisocytosis PT (9.0-12.0) sec INR (<1.2) APTT (22.0-30.0) sec D-Dimer (<0.60) mg/L FEU VBG pH (7.31-7.41) VBG pCO2 (37-51) mmHg VBG HCO3 (24-28) mmol/L Sodium 142 (137-145) mmol/L Potassium 4.0 (3.5-5.1) mmol/L Chloride 105 (98-107) mmol/L Carbon Dioxide 31 H (22-30) mmol/L Anion Gap 6 mmol/L BUN 18 H (7-17) mg/dL Creatinine 0.75 (0.52-1.04) mg/dL Est GFR (CKD-EPI)AfAm 85 (>60 ml/min/1.73 sqM) Est GFR (CKD-EPI)NonAf 74 (>60 ml/min/1.73 sqM) Glucose 109 H (74-99) mg/dL Plasma Lactic Acid Jace (0.7-2.0) mmol/L Calcium 9.1 (8.4-10.2) mg/dL Magnesium 1.9 (1.6-2.3) mg/dL Total Bilirubin 0.3 (0.2-1.3) mg/dL AST 30 (14-36) U/L ALT 26 (4-34) U/L Alkaline Phosphatase 76 (38-126) U/L Troponin I <0.012 (0.000-0.034) ng/mL NT-Pro-B Natriuret Pep 280 pg/mL Total Protein 6.8 (6.3-8.2) g/dL Albumin 3.9 (3.5-5.0) g/dL Influenza Type A (PCR) (Not Detectd) Influenza Type B (PCR) (Not Detectd) RSV (PCR) (Not Detectd) SARS-CoV-2 (PCR) (Not Detectd) 09/25/22 09/25/22 Range/Units 21:20 22:22 WBC (3.8-10.6) k/uL RBC (3.80-5.40) m/uL Hgb (11.4-16.0) gm/dL Hct (34.0-46.0) % MCV (80.0-100.0) fL MCH (25.0-35.0) pg MCHC (31.0-37.0) g/dL RDW (11.5-15.5) % Plt Count (150-450) k/uL MPV Neutrophils % % Lymphocytes % % Monocytes % % Eosinophils % % Basophils % % Neutrophils # (1.3-7.7) k/uL Lymphocytes # (1.0-4.8) k/uL Monocytes # (0-1.0) k/uL Eosinophils # (0-0.7) k/uL Basophils # (0-0.2) k/uL Anisocytosis PT (9.0-12.0) sec INR (<1.2) APTT (22.0-30.0) sec D-Dimer (<0.60) mg/L FEU VBG pH (7.31-7.41) VBG pCO2 (37-51) mmHg VBG HCO3 (24-28) mmol/L Sodium (137-145) mmol/L Potassium (3.5-5.1) mmol/L Chloride (98-107) mmol/L Carbon Dioxide (22-30) mmol/L Anion Gap mmol/L BUN (7-17) mg/dL Creatinine (0.52-1.04) mg/dL Est GFR (CKD-EPI)AfAm (>60 ml/min/1.73 sqM) Est GFR (CKD-EPI)NonAf (>60 ml/min/1.73 sqM) Glucose (74-99) mg/dL Plasma Lactic Acid Jace 1.5 (0.7-2.0) mmol/L Calcium (8.4-10.2) mg/dL Magnesium (1.6-2.3) mg/dL Total Bilirubin (0.2-1.3) mg/dL AST (14-36) U/L ALT (4-34) U/L Alkaline Phosphatase (38-126) U/L Troponin I (0.000-0.034) ng/mL NT-Pro-B Natriuret Pep pg/mL Total Protein (6.3-8.2) g/dL Albumin (3.5-5.0) g/dL Influenza Type A (PCR) Not Detected (Not Detectd) Influenza Type B (PCR) Not Detected (Not Detectd) RSV (PCR) Not Detected (Not Detectd) SARS-CoV-2 (PCR) Not Detected (Not Detectd) - Radiology Data Radiology results: report reviewed, image reviewed Disposition Clinical Impression: CAP (community acquired pneumonia), COPD exacerbation Disposition: ADMITTED IP TO THIS [facility] Condition: Stable Is patient prescribed a controlled substance at d/c from ED?: No Time of Disposition: 03:15
--- NOTE | 2022-09-25 23:09 | XR ---
EXAMINATION TYPE: XR chest 2V DATE OF EXAM: 09/25/2022 10:36 PM COMPARISON: Chest radiographs from 07/25/2022 TECHNIQUE: XR chest 2V Frontal and lateral views of the chest. CLINICAL INDICATION:Female, 86 years old with history of difficulty breathing; FINDINGS: Lungs/Pleura: Bibasilar atelectasis. Airspace opacities project over the spine on lateral view. No ev idence for pneumothorax, pleural effusion or focal consolidation. Pulmonary vascularity: Unremarkable. Heart/mediastinum: Cardiomediastinal silhouette is unremarkable. Musculoskeletal: No acute osseous pathology. IMPRESSION: Airspace opacities project over the spine on lateral view correlate for pneumonia.
[2022-09-25 23:17] LABS: Anisocytosis Slight; Basophils % (A) 0 %; Eosinophils # (A) 0.1 k/uL (0-0.7); Eosinophils % (A) 1 %; HGB 13.4 gm/dL (11.4-16.0); Lymphocytes # (A) 1.1 k/uL (1.0-4.8); Lymphocytes % (A) 14 %; MCH 31.9 pg (25.0-35.0); MCHC 34.3 g/dL (31.0-37.0); MCV 93.1 fL (80.0-100.0); Mean Platelet Volume 8.8; Monocytes # (A) 0.5 k/uL (0-1.0); Monocytes % (A) 6 %; Neutrophils # (A) 6.4 k/uL (1.3-7.7); Neutrophils % (A) 78 %; Platelet Count 456 k/uL (150-450); RBC 4.19 m/uL (3.80-5.40); RDW 17.5 % (11.5-15.5); WBC 8.2 k/uL (3.8-10.6)
[2022-09-25 23:31] LABS: Partial Thromboplastin Time 22.7 sec (22.0-30.0); Prothrombin Time 10.6 sec (9.0-12.0)
[2022-09-25 23:39] LABS: Albumin 3.9 g/dL (3.5-5.0); Calcium 9.1 mg/dL (8.4-10.2); Magnesium 1.9 mg/dL (1.6-2.3); Total Bilirubin 0.3 mg/dL (0.2-1.3); Total Protein 6.8 g/dL (6.3-8.2)
[2022-09-26] MEDS ORDERED: IPRATROPIUM-ALBUTEROL 3 ML NEB INHALATION STA (01:07)
[2022-09-26 02:49] LABS: VBG PH 7.49 (7.31-7.41)
[2022-09-26] MEDS ORDERED: NALOXONE 0.4 MG/ML 1 ML VIAL IVP PRN (03:11)
[2022-09-26] MEDS ORDERED: PNEUMONIA PROTOCOL UTILIZED 1 EACH MISC PO PRN (03:13)
--- NOTE | 2022-09-26 03:28 | CT ---
EXAM: CT Angiography Chest With Intravenous Contrast CLINICAL HISTORY: ITS.REASON CT Reason: dyspnea elevated d-dimer TECHNIQUE: Axial computed tomographic angiography images of the chest with intravenous contrast. CTDI is 12.8 mGy and DLP is 278.5 mGy-cm. This CT exam was performed using one or more of the following dose reduction techniques: automated exposure control, adjustment of the mA and/or kV according to patient size, and/or use of iterative reconstruction technique. MIP reconstructed images were created and reviewed. COMPARISON: No relevant prior studies available. FINDINGS: Pulmonary arteries: No filling defects. Aorta: No thoracic aortic aneurysm. Lungs: No mass. Small left basilar opacity no. Severe COPD. Pleural space: No pneumothorax. No effusion. Heart: No cardiomegaly. No pericardial effusion. Bones/joints: No acute fracture or dislocation. Soft tissues: Unremarkable. Lymph nodes: No enlarged lymph nodes. IMPRESSION: No PE. Left basilar opacity, likely atelectasis versus infection/aspiration.
[2022-09-26] MEDS: AZITHROMYCIN 500 MG TAB PO SCH (03:37)
[2022-09-26] MEDS ORDERED: IPRATROPIUM-ALBUTEROL 3 ML NEB INHALATION PRN (05:00)
--- NOTE | 2022-09-26 05:54 | P.HPIM ---
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 initially . she declined PO steroids due to concerns regarding psychosis. however, over past two days, she noticed fever, chills, pleuritic chest pain with coughing and deep breaths, cough productive of yellowish clear sputum, no hemoptysis , no nausea , no vomiting, no recent travel no history of blood clots. she has been using her breathing treatment around the clock , with out much benefit today, and she is using her oxygen all the time now, (normally she only uses it on an as needed basis ). she otherwise , denies any GI symptoms , denies any known sick contact , she denies smoking (quit 20 years ago) denies drugs and alcohol Review of Systems Pertinent positives as noted in HPI. 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 Last Myocardial Infarction Date:: 40 years ago History of Any Multi-Drug Resistant Organisms: None Reported Past Surgical History: Cholecystectomy, Hysterectomy, Orthopedic Surgery Additional Past Surgical History / Comment(s): KNEE arthroscopy, COLONOSCOPY- LARGE POLYP REMOVED, EGD, cataracts, Right TKA (10/21/21) Past Anesthesia/Blood Transfusion Reactions: No Reported Reaction Additional Past Anesthesia/Blood Transfusion Reaction / Comment(s): No hx blood transfusion. Past Psychological History: No Psychological Hx Reported Smoking Status: Never smoker Past Alcohol Use History: None Reported Past Drug Use History: None Reported - Past Family History Sister(s) Family Medical History: Cancer Additional Family Medical History / Comment(s): #1 sister colon cancer, # 2 sister lung cancer. Father Family Medical History: Cancer Additional Family Medical History / Comment(s): Prostate cancer. Mother Family Medical History: Asthma Additional Family Medical History / Comment(s): Heart problems. Medications and Allergies Home Medications Medication Instructions Recorded Confirmed Type Losartan Potassium 100 mg PO DAILY 10/30/14 09/03/22 History Rosuvastatin [Crestor] 10 mg PO HS 10/20/21 09/03/22 History Albuterol Nebulized [Ventolin 2.5 mg INHALATION RT-QID 11/07/21 09/03/22 History Nebulized] Fluticasone/Umeclidin/Vilanter 1 puff INHALATION RT-DAILY 05/14/22 09/01/22 History [Trelegy Ellipta 100-62.5-25] Ipratropium-Albuterol Nebulize 3 ml INHALATION RT-Q4H 05/14/22 09/01/22 History [Duoneb 0.5 mg-3 mg/3 ml Soln] Metoprolol Succinate (ER) [Toprol 25 mg PO DAILY 05/14/22 09/03/22 History XL] Albuterol Inhaler [Ventolin Hfa 2 puff INHALATION RT-Q4H PRN #1 05/19/22 09/03/22 Rx Inhaler] each Acetaminophen Tab [Tylenol] 650 mg PO Q6HR PRN tab 06/19/22 09/03/22 Rx Ipratropium-Albuterol Nebulize 3 ml INHALATION RT-Q2H PRN each 07/27/22 09/01/22 Rx [Duoneb 0.5 mg-3 mg/3 ml Soln] Diltiazem Oral [Cardizem*] 30 mg PO HS 09/01/22 09/03/22 History Allergies Allergy/AdvReac Type Severity Reaction Status Date / Time hydrocodone bitartrate AdvReac states Verified 09/25/22 21:44 [From Vicodin] "doesn't make me feel good" prednisone AdvReac Hallucinati Verified 09/25/22 21:44 ons Physical Exam Vitals: Vital Signs Temp Pulse Resp BP Pulse Ox 09/26/22 01:19 80 09/26/22 01:10 77 09/26/22 01:00 85 16 150/79 98 09/25/22 23:26 97.9 F 81 145 H 95 09/25/22 22:29 80 18 135/96 100 09/25/22 21:45 98.6 F 93 18 147/84 96 Intake and Output 09/25/22 09/25/22 09/26/22 14:59 22:59 06:59 Other: Weight 68.039 kg Constitutional: No acute distress, conversant Eyes: Anicteric sclerae, moist conjunctiva, Pupils equal round reactive to light ENMT: NC/AT Oropharynx clear, no erythema, or exudates Neck: Supple, no masses, or JVD No carotid bruits No thyromegaly Lungs: diminished breath sounds throughout Clear to percussion using accessory muscle of respiration Cardiovascular: Heart regular in rate and rhythm, No murmurs, gallops, or rubs No peripheral edema Abdominal: Soft Nontender, no guarding, rebound or rigidity Abdomen moving with respiration Normoactive bowel sounds No hepatomegaly, No splenomegaly No palpable mass No abdominal wall hernia noted Skin: Normal temperature, tone, texture, turgor No induration No subcutaneous nodules No rash, lesions No ulcers Extremities: No digital cyanosis No clubbing Pedal pulses intact and symmetrical Radial pulses intact and symmetrical No calf tenderness Psychiatric: Alert and oriented to person, place and time Appropriate affect Neuro Muscles Strength 5/5 in all 4 extremities Sensation to light touch grossly present throughout Cranial nerves II-XII grossly intact Lymphatics: no palpable cervical or supraclavicular lymph nodes Results CBC & Chem 7: 09/25/22 21:20 09/25/22 21:20 Labs: Abnormal Lab Results - Last 24 Hours (Table) 09/25/22 09/25/22 09/25/22 Range/Units 02:00 21:20 21:20 RDW 17.5 H (11.5-15.5) % Plt Count 456 H (150-450) k/uL D-Dimer 0.60 H (<0.60) mg/L FEU VBG pH 7.49 H (7.31-7.41) Carbon Dioxide (22-30) mmol/L BUN (7-17) mg/dL Glucose (74-99) mg/dL 09/25/22 Range/Units 21:20 RDW (11.5-15.5) % Plt Count (150-450) k/uL D-Dimer (<0.60) mg/L FEU VBG pH (7.31-7.41) Carbon Dioxide 31 H (22-30) mmol/L BUN 18 H (7-17) mg/dL Glucose 109 H (74-99) mg/dL Assessment and Plan Assessment: 86 year old female coming in with 5 day history of URI symptoms , I discussed the case with ED doc, patient requiring supplemental oxygen and CXR suspicious for possible underlying pneumonia , I accepted the admission for acute COPD exacerbation for systemic IV steroids and pulmonary evaluation with anticipated length of stay > 2 midnights acute on Chronic hypoxic respiratory failure acute copd exacerbation plan supportive care duonebs around the clock QID and as needed 2hr supplemental oxygen to keep oxygen sat >92 % elevated d dimer CTA chest showed no acute PE , but showed right lower lung opacities follow up cultures acute viral respiratory panel negative (covid , influenza, and RSV) systemic IV steroids with solumedrol 60 mg Q6hr IVP azithromycin daily rocphine 2 gm IVPB daily pulmonary consult chronic conditions hypertension P.afib home meds are not confirmed and verified yet full code DVT PPX heparin sc tid
[2022-09-26] MEDS: methylPREDNISolone SOD SUCCI 125 MG/2 ML VIAL IV SCH ×3 (06:48→17:00)
[2022-09-26] MEDS: IPRATROPIUM-ALBUTEROL 3 ML NEB INHALATION SCH ×4 (09:02→21:14)
[2022-09-26] MEDS: HEPARIN SODIUM,PORCINE/PF 5,000 UNIT/0.5 ML SYRINGE SQ SCH ×2 (10:05→16:11)
[2022-09-26] MEDS: BENZONATATE 100 MG CAP PO SCH ×3 (10:05→21:03)
--- NOTE | 2022-09-26 12:08 | P.CNPUL ---
History of Present Illness Consult date: 09/26/22 Requesting physician: Harsh Neal Reason for consult: dyspnea, cough Chief complaint: Shortness of breath, cough, congestion History of present illness: This is a very pleasant 86-year-old female patient with a known history of chronic obstructive pulmonary disease, oxygen dependent, hyperlipidemia, hypertension, former smoker, osteoarthritis, hard of hearing. She's been having ongoing issues with recurrent exacerbations of her COPD. She has been admitted here every month this year so far. She did undergo bronchoscopy with BAL again by Dr. Gilbert on 09/03/2022 with findings of Lavern only. No evidence of malignancy. She was also seen by him last week in the office and was continued on oral prednisone. She presented here to the emergency room yesterday with worsening shortness of breath, cough or congestion. Chest x-ray reveals bibasilar atelectasis. No evidence of pneumothorax, pleural effusion or focal consolidation. CT angiogram ruled out pulmonary embolism again with noted left basilar opacity more likely atelectasis versus infection/aspiration. Evidence of severe COPD. White count 8.2. Hemoglobin 13.4. Platelets 456. D-dimer 0.60. Sodium 142. Potassium 4.0. Bicarb 31. BUN 18. Creatinine 0.75. Troponin negative. ProBNP 280. Influenza screen negative. COVID-19 screen negative. RSV screen negative. She is seen today in consultation on the [facility] medical floor. Currently sitting up at the bedside. Awake and alert in no acute distress. Maintaining O2 saturations in the mid 90s on 3 L/m per nasal cannula. Afebrile. She has a loose nonproductive cough. No fever or chills. No hemoptysis. She's been initiated on ceftriaxone and azithromycin along with DuoNeb inhalations, Pulmicort and Perforomist inhalations, IV Solu-Medrol. Hepa rin for DVT prophylaxis. Review of Systems REVIEW OF SYSTEMS: CONSTITUTIONAL: Denies any recent significant weight loss or weight gain. EYES: Denies change in vision. EARS, NOSE, MOUTH, THROAT: Denies headaches, denies sore throat. CARDIOVASCULAR: Denies chest pain, palpitations or syncopal episodes. RESPIRATORY: Positive for shortness of breath, cough, congestion no hemoptysis. GASTROINTESTINAL: Denies change in appetite, denies abdominal pain GENITOURINARY: Denies hematuria, denies infections. MUSKULOSKELETAL: Denies pain, denies swelling. INTEGUMENTARY: Denies rash, denies eczema. NEUROLOGICAL: Denies recent memory loss, no recent seizure activity. PSYCHIATRIC: Denies anxiety, denies depression. HEMATOLOGIC/LYMPHATIC: Denies anemia, denies enlarged lymph nodes. 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 Last Myocardial Infarction Date:: 40 years ago History of Any Multi-Drug Resistant Organisms: None Reported Past Surgical History: Cholecystectomy, Hysterectomy, Orthopedic Surgery Additional Past Surgical History / Comment(s): KNEE arthroscopy, COLONOSCOPY- LARGE POLYP REMOVED, EGD, cataracts, Right TKA (10/21/21) Past Anesthesia/Blood Transfusion Reactions: No Reported Reaction Additional Past Anesthesia/Blood Transfusion Reaction / Comment(s): No hx blood transfusion. Past Psychological History: No Psychological Hx Reported Additional Psychological History / Comment(s): She is independent. Smoking Status: Never smoker Past Alcohol Use History: None Reported Additional Past Alcohol Use History / Comment(s): Started smoking 1964, quit smoking 1989, smoked 1ppd. Past Drug Use History: None Reported Additional Drug Use History / Comment(s): Uses cbd oil occ for arthritic pain. Aware no use 24 hrs prior to procedure. - Past Family History Sister(s) Family Medical History: Cancer Additional Family Medical History / Comment(s): #1 sister colon cancer, # 2 sist er lung cancer. Father Family Medical History: Cancer Additional Family Medical History / Comment(s): Prostate cancer. Mother Family Medical History: Asthma Additional Family Medical History / Comment(s): Heart problems. Medications and Allergies Home Medications Medication Instructions Recorded Confirmed Type Losartan Potassium 100 mg PO DAILY 10/30/14 09/03/22 History Rosuvastatin [Crestor] 10 mg PO HS 10/20/21 09/03/22 History Albuterol Nebulized [Ventolin 2.5 mg INHALATION RT-QID 11/07/21 09/03/22 History Nebulized] Fluticasone/Umeclidin/Vilanter 1 puff INHALATION RT-DAILY 05/14/22 09/01/22 History [Trelesophia Ellipta 100-62.5-25] Ipratropium-Albuterol Nebulize 3 ml INHALATION RT-Q4H 05/14/22 09/01/22 History [Duoneb 0.5 mg-3 mg/3 ml Soln] Metoprolol Succinate (ER) [Toprol 25 mg PO DAILY 05/14/22 09/03/22 History XL] Albuterol Inhaler [Ventolin Hfa 2 puff INHALATION RT-Q4H PRN #1 05/19/22 Rx Inhaler] each Acetaminophen Tab [Tylenol] 650 mg PO Q6HR PRN tab 06/19/22 09/03/22 Rx Ipratropium-Albuterol Nebulize 3 ml INHALATION RT-Q2H PRN each 07/27/22 09/01/22 Rx [Duoneb 0.5 mg-3 mg/3 ml Soln] Diltiazem Oral [Cardizem*] 30 mg PO HS 09/01/22 09/03/22 History Allergies Allergy/AdvReac Type Severity Reaction Status Date / Time hydrocodone bitartrate AdvReac states Verified 09/25/22 21:44 [From Vicodin] "doesn't make me feel good" prednisone AdvReac Hallucinati Verified 09/25/22 21:44 ons Physical Exam Vitals: Vital Signs Temp Pulse Pulse Resp BP BP Pulse Ox 09/26/22 09:14 88 09/26/22 09:05 92 96 09/26/22 07:29 98.1 F 89 19 169/79 93 L 09/26/22 06:48 81 16 171/95 97 09/26/22 01:19 80 09/26/22 01:10 77 09/26/22 01:00 85 16 150/79 98 09/25/22 23:26 97.9 F 81 145 H 95 09/25/22 22:29 80 18 135/96 100 09/25/22 21:45 98.6 F 93 18 147/84 96 Intake and Output 04/14/23 04/15/23 04/15/23 22:59 06:59 14:59 Other: # Voids 1 Weight 68.039 kg 68.039 kg GENERAL EXAM: Alert, very pleasant 86-year-old female, on 2 L nasal cannula, comfortable in no apparent distress. HEAD: Normocephalic. EYES: Normal reaction of pupils, equal size. NOSE: Clear with pink turbinates. THROAT: No erythema or exudates. NECK: No masses, no JVD. CHEST: No chest wall deformity. LUNGS: Equal air entry with few scattered rhonchi. CVS: S1 and S2 normal with no audible murmur, regular rhythm. ABDOMEN: No hepatosplenomegaly, normal bowel sounds, no guarding or rigidity. SPINE: No scoliosis or deformity SKIN: No rashes CENTRAL NERVOUS SYSTEM: No focal deficits, tone is normal in all 4 extremities. EXTREMITIES: There is no peripheral edema. No clubbing, no cyanosis. Peripheral pulses are intact. Results - Laboratory Findings CBC and BMP: 09/25/22 21:20 09/25/22 21:20 PT/INR, D-dimer PT 10.6 sec (9.0-12.0) 09/25/22 21:20 INR 1.0 (<1.2) 09/25/22 21:20 D-Dimer 0.60 mg/L FEU (<0.60) H 09/25/22 21:20 Abnormal lab findings: Abnormal Labs 09/25/22 09/25/22 09/25/22 02:00 21:20 21:20 RDW 17.5 H Plt Count 456 H D-Dimer 0.60 H VBG pH 7.49 H Carbon Dioxide BUN Glucose 09/25/22 21:20 RDW Plt Count D-Dimer VBG pH Carbon Dioxide 31 H BUN 18 H Glucose 109 H Assessment and Plan Assessment: Acute on chronic hypoxemic respiratory failure secondary to an acute exacerbation of chronic obstructive pulmonary disease. Chest x-ray reveals no acute pulmonary process. Pro-calcitonin pending. Recent bronchoscopy with BAL on 09/03/2022 revealed Lavern only. No evidence of malignancy. Acute exacerbation of chronic obstructive pulmonary disease History of oxygen dependent COPD, history of multiple bronchoscopies Former smoker Hypertension Hyperlipidemia History of hearing disorder History of diverticular disease Previous pneumonias Schatzki's ring, status post balloon dilation using a 15-18 mm TTS balloon 06/18/2022 Plan: The patient was seen and evaluated Chest x-ray, labs and medications reviewed Continue Pulmicort and Perforomist inhalations, DuoNeb inhalations, IV Solu- Medrol Check a pro-calcitonin Continue antibiotics for now Titrate the FiO2 as tolerated We will continue to follow and make further recommendations based on her cl inical status I have personally seen and examined the patient, performed the documentation and the assessment and plan as written. Number of minutes spent on the visit: 20.
[2022-09-26] MEDS: ATORVASTATIN 20 MG TAB PO SCH (21:03)
[2022-09-26] MEDS: BUDESONIDE 1 MG/2 ML NEBU INHALATION SCH (21:13)
[2022-09-26] MEDS: FORMOTEROL FUMARATE 20 MCG/2 ML NEBU INHALATION SCH (21:13)
[2022-09-26] MEDS: DILTIAZEM CD 120 MG CAP.ER.24H PO SCH (21:35)
[2022-09-27] MEDS: HEPARIN SODIUM,PORCINE/PF 5,000 UNIT/0.5 ML SYRINGE SQ SCH ×4 (00:03→23:46)
[2022-09-27] MEDS: methylPREDNISolone SOD SUCCI 125 MG/2 ML VIAL IV SCH ×5 (00:03→23:46)
[2022-09-27] MEDS: AZITHROMYCIN 500 MG TAB PO SCH (04:40)
[2022-09-27] MEDS: LOSARTAN 50 MG TAB PO SCH (08:57)
[2022-09-27] MEDS: METOPROLOL SUCCINATE (ER) 25 MG TAB.ER.24H PO SCH (08:57)
[2022-09-27] MEDS: BENZONATATE 100 MG CAP PO SCH ×3 (08:57→21:13)
[2022-09-27] MEDS: IPRATROPIUM 0.5 MG/2.5 ML NEBU INHALATION SCH ×4 (09:29→21:56)
[2022-09-27] MEDS: BUDESONIDE 1 MG/2 ML NEBU INHALATION SCH ×2 (09:29→21:55)
[2022-09-27] MEDS: IPRATROPIUM-ALBUTEROL 3 ML NEB INHALATION SCH ×3 (09:29→16:24)
[2022-09-27] MEDS: FORMOTEROL FUMARATE 20 MCG/2 ML NEBU INHALATION SCH ×2 (09:29→21:55)
[2022-09-27] MEDS ORDERED: TEMAZEPAM 15 MG CAP PO PRN (10:15)
--- NOTE | 2022-09-27 12:20 | P.PN ---
Subjective Progress Note Date: 09/27/22 This is a very pleasant 86-year-old female patient with a known history of chronic obstructive pulmonary disease, oxygen dependent, hyperlipidemia, hypertension, former smoker, osteoarthritis, hard of hearing. She's been having ongoing issues with recurrent exacerbations of her COPD. She has been admitted here every month this year so far. She did undergo bronchoscopy with BAL again by Dr. Gilbert on 09/03/2022 with findings of Lavern only. No evidence of malignancy. She was also seen by him last week in the office and was continued on oral prednisone. She presented here to the emergency room yesterday with worsening shortness of breath, cough or congestion. Chest x-ray reveals bibasilar atelectasis. No evidence of pneumothorax, pleural effusion or focal consolidation. CT angiogram ruled out pulmonary embolism again with noted left basilar opacity more likely atelectasis versus infection/aspiration. Evidence of severe COPD. White count 8.2. Hemoglobin 13.4. Platelets 456. D-dimer 0.60. Sodium 142. Potassium 4.0. Bicarb 31. BUN 18. Creatinine 0.75. Troponin negative. ProBNP 280. Influenza screen negative. COVID-19 screen negative. RSV screen negative. She is seen today in consultation on the regular medical floor. Currently sitting up at the bedside. Awake and alert in no acute distress. Maintaining O2 saturations in the mid 90s on 3 L/m per nasal cannula. Afebrile. She has a loose nonproductive cough. No fever or chills. No hemoptysis. She's been initiated on ceftriaxone and azithromycin along with DuoNeb inhalations, Pulmicort and Perforomist inhalations, IV Solu-Medrol. Heparin for DVT prophylaxis. The patient is seen today 09/27/2022 in follow-up on the regular medical floor. She is currently sitting up in bed. Awake and alert in no acute distress. States breathing a bit easier today compared to yesterday but not quite back to her baseline. She is maintaining O2 saturations in the 90s on 2 L/m per nasal cannula. No IV fluids. Pro-calcitonin was 0.05. Blood cultures reveal no growth. She is continued on ceftriaxone and azithromycin. Remains on DuoNeb inhalations, Pulmicort and Perforomist inhalations, IV Solu-Medrol. Heparin for DVT prophylaxis. Objective - Vital Signs Vital signs: Vital Signs Temp 98.3 F 09/27/22 07:27 Pulse 84 09/27/22 09:58 Resp 19 09/27/22 07:27 BP 158/84 09/27/22 07:27 Pulse Ox 97 09/27/22 07:27 FiO2 Intake & Output 09/26/22 09/27/22 09/27/22 18:59 06:59 18:59 Weight 68.039 kg Other: # Voids 1 2 1 # Bowel Movements 1 - Exam GENERAL EXAM: Alert, pleasant 86-year-old female, sitting up in bed, on 2 L nasal cannula, comfortable in no apparent distress. HEAD: Normocephalic. EYES: Normal reaction of pupils, equal size. NOSE: Clear with pink turbinates. THROAT: No erythema or exudates. NECK: No masses, no JVD. CHEST: No chest wall deformity. LUNGS: Equal air entry with few scattered rhonchi, end expiratory wheeze. CVS: S1 and S2 normal with no audible murmur, regular rhythm. ABDOMEN: No hepatosplenomegaly, normal bowel sounds, no guarding or rigidity. SPINE: No scoliosis or deformity SKIN: No rashes CENTRAL NERVOUS SYSTEM: No focal deficits, tone is normal in all 4 extremities. EXTREMITIES: There is no peripheral edema. No clubbing, no cyanosis. Peripheral pulses are intact. - Labs CBC & Chem 7: 09/25/22 21:20 09/25/22 21:20 Labs: Microbiology - Last 24 Hours (Table) 09/25/22 21:20 Blood Culture - Preliminary Blood No Growth after 24 hours 09/25/22 21:20 Blood Culture - Preliminary Blood No Growth after 24 hours Assessment and Plan Assessment: Acute on chronic hypoxemic respiratory failure secondary to an acute exacerbation of chronic obstructive pulmonary disease. Chest x-ray reveals no acute pulmonary process. Pro-calcitonin pending. Recent bronchoscopy with BAL on 09/03/2022 revealed Lavern only. No evidence of malignancy. CT angiogram ruled out pulmonary embolism. There is a left basilar opacity likely atelectasis versus infection. Procalcitonin 0.05. Ceftriaxone and azithromycin discontinued. Acute exacerbation of chronic obstructive pulmonary disease History of oxygen dependent COPD, history of multiple bronchoscopies Former smoker Hypertension Hyperlipidemia History of hearing disorder History of diverticular disease Previous pneumonias Schatzki's ring, status post balloon dilation using a 15-18 mm TTS balloon 06/18/2022 Plan: The patient was seen and evaluated CT angiogram and medications reviewed Continue Pulmicort and Perforomist inhalations, DuoNeb inhalations, IV Solu- Medrol Procalcitonin within normal limits, antibiotics discontinued Increase her activity as tolerated Titrate the FiO2 as tolerated We will continue to follow I have personally seen and examined the patient, performed the documentation and the assessment and plan as written. Number of minutes spent on the visit: 10.
--- NOTE | 2022-09-27 13:38 | P.PN ---
Subjective Progress Note Date: 09/27/22 86-year-old female with PMH of COPD on 2 L home O2, hypertension, dyslipidemia presents to the ED for worsening shortness of breath along with productive cough and URI symptoms. In the ED, her vital signs were stable, however requiring 3 L nasal cannula to maintain O2 saturation greater than 92%. CBC showed platelet count of 456. Coagulation panel within normal limits. D-dimer elevated at 0.6. VBG showed pH 7.49 with pCO2 of 38. CMP showed a bicarb of 31, BUN of 18, glucose 109. Lactic acid negative. Troponin negative. BNP 280. Influenza, RSV COVID-19 negative. Admitted for COPD exacerbation. Patient reports slight improvement in her breathing since admission but continues to complain of shortness of breath especially with ambulation. She is currently on 2 L nasal cannula. She denies any chest pain or palpitations. No nausea or vomiting. No fever or chills. General: non toxic, no distress, appears at stated age Derm: warm, dry Head: atraumatic, normocephalic, symmetric Eyes: EOMI, no lid lag, anicteric sclera Mouth: no lip lesion, mucus membranes moist Cardiovascular: S1S2 reg, no murmur Lungs: End expiratory wheezing bilateral, no rhonchi, no rales Ext: no gross muscle atrophy, no edema, no contractures Neuro: no focal neuro deficits Psych: Alert, oriented, appropriate affect Acute on chronic hypoxic respiratory failure Acute COPD exacerbation Thrombocytosis Elevated D-Dimer Chronic respiratory alkalosis with secondary metabolic alkalosis Chronic conditions: hypertension, dyslipidemia Based on my assessment of this patient, this patient meets a moderate complexity level of care. I have reviewed the following immigration consultant notes: Pulmonology 09/27, continue bronchodilators, IV solumedrol, discontinue antibiotics, increase activity. I have reviewed the results of the following tests: Procalcitonin 0.05. I have ordered the following tests: None. I have discussed the care of this patient with the following independent historian: None. I have independently interpreted the following test below: None. I have discussed the management of this patient with the following physician: None. This patient has a moderate risk of morbidity due to the following reasons: Patient has a chronic respiratory failure with history of COPD on 2 L nasal cannula with severe exacerbation or progression of disease which poses a threat to life or bodily function. Continue bronchodilators. Supplemental O2 to maintain O2 saturation greater than 92%. Azithromycin and Rocephin discontinued due to normal procalcitonin, low concerns for pneumonia. Solu-Medrol 60 mg IV every 6 hours. Telemetry monitoring. Pulmonology consulted for further management of this patient. Hypertension - Restart metoprolol 25 mg by mouth daily, losartan 100 mg by mouth daily, diltiazem 120 mg by mouth at bedtime. Dyslipidemia - Most recent BP 159/84. Restart Crestor 10 mg by mouth at bedtime. She is pending clinical improvement. Anticipate DC in 1-2 days. Objective - Vital Signs Vital signs: Vital Signs Temp 98.3 F 09/27/22 07:27 Pulse 80 09/27/22 12:53 Resp 19 09/27/22 07:27 BP 158/84 09/27/22 07:27 Pulse Ox 97 09/27/22 07:27 FiO2 Intake & Output 09/26/22 09/27/22 09/27/22 18:59 06:59 18:59 Weight 68.039 kg Other: # Voids 1 2 1 # Bowel Movements 1 - Labs CBC & Chem 7: 09/25/22 21:20 09/25/22 21:20 Labs: Microbiology - Last 24 Hours (Table) 09/25/22 21:20 Blood Culture - Preliminary Blood No Growth after 24 hours 09/25/22 21:20 Blood Culture - Preliminary Blood No Growth after 24 hours
[2022-09-27] MEDS: ATORVASTATIN 20 MG TAB PO SCH (21:13)
[2022-09-27] MEDS: DILTIAZEM CD 120 MG CAP.ER.24H PO SCH (21:13)
[2022-09-28] MEDS ORDERED: AZITHROMYCIN 500 MG TAB PO SCH (04:00)
[2022-09-28] MEDS: methylPREDNISolone SOD SUCCI 125 MG/2 ML VIAL IV SCH ×4 (06:15→23:58)
[2022-09-28] MEDS: HEPARIN SODIUM,PORCINE/PF 5,000 UNIT/0.5 ML SYRINGE SQ SCH ×3 (08:28→23:58)
[2022-09-28] MEDS: BENZONATATE 100 MG CAP PO SCH ×3 (08:29→21:19)
[2022-09-28] MEDS: METOPROLOL SUCCINATE (ER) 25 MG TAB.ER.24H PO SCH (08:29)
[2022-09-28] MEDS: LOSARTAN 50 MG TAB PO SCH (08:29)
[2022-09-28] MEDS: IPRATROPIUM 0.5 MG/2.5 ML NEBU INHALATION SCH ×4 (09:18→21:37)
[2022-09-28] MEDS: FORMOTEROL FUMARATE 20 MCG/2 ML NEBU INHALATION SCH ×2 (09:18→21:37)
[2022-09-28] MEDS: IPRATROPIUM-ALBUTEROL 3 ML NEB INHALATION SCH ×4 (09:18→21:37)
[2022-09-28] MEDS: BUDESONIDE 1 MG/2 ML NEBU INHALATION SCH ×2 (09:18→21:37)
--- NOTE | 2022-09-28 12:23 | P.PN ---
Subjective Progress Note Date: 09/28/22 Principal diagnosis: Shortness of breath. This is a very pleasant 86-year-old female patient with a known history of chronic obstructive pulmonary disease, oxygen dependent, hyperlipidemia, hypertension, former smoker, osteoarthritis, hard of hearing. She's been having ongoing issues with recurrent exacerbations of her COPD. She has been admitted here every month this year so far. She did undergo bronchoscopy with BAL again by Dr. Gilbert on 09/03/2022 with findings of Lavern only. No evidence of malignancy. She was also seen by him last week in the office and was continued on oral prednisone. She presented here to the emergency room yesterday with worsening shortness of breath, cough or congestion. Chest x-ray reveals bibasilar atelectasis. No evidence of pneumothorax, pleural effusion or focal consolidation. CT angiogram ruled out pulmonary embolism again with noted left basilar opacity more likely atelectasis versus infection/aspiration. Evidence of severe COPD. White count 8.2. Hemoglobin 13.4. Platelets 456. D-dimer 0.60. Sodium 142. Potassium 4.0. Bicarb 31. BUN 18. Creatinine 0.75. Troponin negative. ProBNP 280. Influenza screen negative. COVID-19 screen negative. RSV screen negative. She is seen today in consultation on the regular medical floor. Currently sitting up at the bedside. Awake and alert in no acute distress. Maintaining O2 saturations in the mid 90s on 3 L/m per nasal cannula. Afebrile. She has a loose nonproductive cough. No fever or chills. No hemoptysis. She's been initiated on ceftriaxone and azithromycin along with DuoNeb inhalations, Pulmicort and Perforomist inhalations, IV Solu-Medrol. Hep iva for DVT prophylaxis. The patient is seen today 09/27/2022 in follow-up on the regular medical floor. She is currently sitting up in bed. Awake and alert in no acute distress. States breathing a bit easier today compared to yesterday but not quite back to her baseline. She is maintaining O2 saturations in the 90s on 2 L/m per nasal cannula. No IV fluids. Pro-calcitonin was 0.05. Blood cultures reveal no growth. She is continued on ceftriaxone and azithromycin. Remains on DuoNeb inhalations, Pulmicort and Perforomist inhalations, IV Solu-Medrol. Heparin for DVT prophylaxis. Progress note dated 09/28/2022. 86-year-old black female with a history of severe COPD/asthma. The patient was admitted with a diagnosis of COPD/asthma exacerbation. Today, the patient is seen in room 464. She continues on oxygen at 3 L. She's not receiving any IV fluids. She doesn't feel much better. She may eventually need another bronchoscopy. She continues on appropriate antibiotics, bronchodilators, and corticosteroids. In addition, we gave her some Restoril for sleep at nighttime. No new labs today. Her pro-calcitonin level was 0.05. Antibiotics can be de- escalated. Objective - Vital Signs Vital signs: Vital Signs Temp 97.8 F 09/28/22 07:12 Pulse 88 09/28/22 09:48 Resp 16 09/28/22 08:29 BP 150/79 09/28/22 07:12 Pulse Ox 98 09/28/22 09:23 FiO2 Intake & Output 09/27/22 09/28/22 09/28/22 18:59 06:59 18:59 Other: # Voids 1 1 # Bowel Movements 1 - Exam No acute distress, oriented 3. Currently on 3 L of oxygen by nasal cannula. No conversational dyspnea or use of accessory muscles. HEENT examination is grossly unremarkable. Neck supple. Full range of motion. No adenopathy thyromegaly or neck vein distention. Cardiovascular examination reveals regular rhythm rate. S1-S2 normal. No S3 or S4. No discernible murmur noted. Heart rate 88 bpm. Heart sounds are distant. Lungs reveal coarse bilateral inspiratory and expiratory wheezes and rhonchi. Breath sounds are no better. No crackles. Breath sounds are equal bilaterally. Abdomen soft bowel sounds are heard. No masses or tenderness. Extremities are intact. No cyanosis clubbing or edema. Skin is without rash or lesion. Neurologic examination is brief but nonfocal. - Labs CBC & Chem 7: 09/25/22 21:20 09/25/22 21:20 Labs: Microbiology - Last 24 Hours (Table) 09/25/22 21:20 Blood Culture - Preliminary Blood No Growth after 48 hours 09/25/22 21:20 Blood Culture - Preliminary Blood No Growth after 48 hours Assessment and Plan Assessment: Acute on chronic hypoxemic respiratory failure secondary to an acute exacerbation of chronic obstructive pulmonary disease. Chest x-ray reveals no acute pulmonary process. Pro-calcitonin pending. Recent bronchoscopy with BAL on 09/03/2022 revealed Lavern only. No evidence of malignancy. CT angiogram ruled out pulmonary embolism. There is a left basilar opacity likely atelectasis versus infection. Procalcitonin 0.05. Ceftriaxone and azithromycin discontinued. Acute exacerbation of chronic obstructive pulmonary disease. History of oxygen dependent COPD, history of multiple bronchoscopies. Former smoker. Hypertension. Hyperlipidemia. History of hearing disorder. History of diverticular disease. Previous pneumonias. Schatzki's ring, status post balloon dilation using a 15-18 mm TTS balloon 06/18/2022. Plan: Plan dated 09/28/2022. The patient is seen, interviewed, and examined today in room 464. She is about the same today as she was yesterday. She may require bronchoscopy later this week. She is on appropriate medications. Antibiotics were discontinued because her pro-calcitonin levels were in the normal range. We will continue to follow this patient and make recommendations along the way. Prognosis is guarded. Looking back, the patient has been admitted each month this year. Time with Patient: Less than 30
--- NOTE | 2022-09-28 13:15 | P.PN ---
Subjective Progress Note Date: 09/28/22 86-year-old female with PMH of COPD on 2 L home O2, hypertension, dyslipidemia presents to the ED for worsening shortness of breath along with productive cough and URI symptoms. In the ED, her vital signs were stable, however requiring 3 L nasal cannula to maintain O2 saturation greater than 92%. CBC showed platelet count of 456. Coagulation panel within normal limits. D-dimer elevated at 0.6. VBG showed pH 7.49 with pCO2 of 38. CMP showed a bicarb of 31, BUN of 18, glucose 109. Lactic acid negative. Troponin negative. BNP 280. Influenza, RSV COVID-19 negative. Admitted for COPD exacerbation. Patient reports slight improvement in her breathing since admission but continues to complain of shortness of breath especially with ambulation. She is currently on 3 L nasal cannula. She denies any chest pain or palpitations. No nausea or vomiting. No fever or chills. General: non toxic, no distress, appears at stated age Derm: warm, dry Head: atraumatic, normocephalic, symmetric Eyes: EOMI, no lid lag, anicteric sclera Mouth: no lip lesion, mucus membranes moist Cardiovascular: S1S2 reg, no murmur Lungs: End expiratory wheezing bilateral, no rhonchi, no rales Ext: no gross muscle atrophy, no edema, no contractures Neuro: no focal neuro deficits Psych: Alert, oriented, appropriate affect Acute on chronic hypoxic respiratory failure Acute COPD exacerbation Thrombocytosis Elevated D-Dimer Chronic respiratory alkalosis with secondary metabolic alkalosis Chronic conditions: hypertension, dyslipidemia Based on my assessment of this patient, this patient meets a moderate complexity level of care. I have reviewed the following library sales consultant notes: Pulmonology 09/28, she may require bronchoscopy later this week. I have reviewed the results of the following tests: None. I have ordered the following tests: None. I have discussed the care of this patient with the following independent historian: None. I have independently interpreted the following test below: None. I have discussed the management of this patient with the following physician: None. This patient has a moderate risk of morbidity due to the following reasons: Patient has a chronic respiratory failure with history of COPD on 2 L nasal cannula with severe exacerbation or progression of disease which poses a threat to life or bodily function. Continue bronchodilators. Supplemental O2 to maintain O2 saturation greater than 92%. Azithromycin and Rocephin discontinued due to normal procalcitonin, low concerns for pneumonia. Solu-Medrol 60 mg IV every 6 hours. Telemetry monitoring. Pulmonology on board. Hypertension - Most recent BP 150/79. Continue metoprolol 25 mg by mouth daily, losartan 100 mg by mouth daily, diltiazem 120 mg by mouth at bedtime. Dyslipidemia - Restart Crestor 10 mg by mouth at bedtime. She is pending clinical improvement. Anticipate DC in 1-2 days. Objective - Vital Signs Vital signs: Vital Signs Temp 97.8 F 09/28/22 07:12 Pulse 88 09/28/22 13:08 Resp 16 09/28/22 08:29 BP 150/79 09/28/22 07:12 Pulse Ox 98 09/28/22 09:23 FiO2 Intake & Output 09/27/22 09/28/22 09/28/22 18:59 06:59 18:59 Other: # Voids 1 1 # Bowel Movements 1 - Labs CBC & Chem 7: 09/25/22 21:20 09/25/22 21:20 Labs: Microbiology - Last 24 Hours (Table) 09/25/22 21:20 Blood Culture - Preliminary Blood No Growth after 48 hours 09/25/22 21:20 Blood Culture - Preliminary Blood No Growth after 48 hours
[2022-09-28] MEDS ORDERED: TEMAZEPAM 15 MG CAP PO PRN (16:34)
[2022-09-28] MEDS: ATORVASTATIN 20 MG TAB PO SCH (21:19)
[2022-09-28] MEDS: DILTIAZEM CD 120 MG CAP.ER.24H PO SCH (21:19)
[2022-09-29] MEDS: methylPREDNISolone SOD SUCCI 125 MG/2 ML VIAL IV SCH ×3 (07:51→16:40)
[2022-09-29] MEDS: METOPROLOL SUCCINATE (ER) 25 MG TAB.ER.24H PO SCH (08:11)
[2022-09-29] MEDS: LOSARTAN 50 MG TAB PO SCH (08:11)
[2022-09-29] MEDS: BENZONATATE 100 MG CAP PO SCH ×3 (08:11→22:09)
[2022-09-29] MEDS: HEPARIN SODIUM,PORCINE/PF 5,000 UNIT/0.5 ML SYRINGE SQ SCH ×2 (08:11→15:12)
[2022-09-29] MEDS: BUDESONIDE 1 MG/2 ML NEBU INHALATION SCH ×2 (10:28→20:05)
[2022-09-29] MEDS: IPRATROPIUM-ALBUTEROL 3 ML NEB INHALATION SCH ×4 (10:29→20:05)
[2022-09-29] MEDS: FORMOTEROL FUMARATE 20 MCG/2 ML NEBU INHALATION SCH ×2 (10:29→20:05)
--- NOTE | 2022-09-29 12:07 | P.PN ---
Subjective Progress Note Date: 09/29/22 This is a very pleasant 86-year-old female patient with a known history of chronic obstructive pulmonary disease, oxygen dependent, hyperlipidemia, hypertension, former smoker, osteoarthritis, hard of hearing. She's been having ongoing issues with recurrent exacerbations of her COPD. She has been admitted here every month this year so far. She did undergo bronchoscopy with BAL again by Dr. Gilbert on 09/03/2022 with findings of Lavern only. No evidence of malignancy. She was also seen by him last week in the office and was continued on oral prednisone. She presented here to the emergency room yesterday with worsening shortness of breath, cough or congestion. Chest x-ray reveals bibasilar atelectasis. No evidence of pneumothorax, pleural effusion or focal consolidation. CT angiogram ruled out pulmonary embolism again with noted left basilar opacity more likely atelectasis versus infection/aspiration. Evidence of severe COPD. White count 8.2. Hemoglobin 13.4. Platelets 456. D-dimer 0.60. Sodium 142. Potassium 4.0. Bicarb 31. BUN 18. Creatinine 0.75. Troponin negative. ProBNP 280. Influenza screen negative. COVID-19 screen negative. RSV screen negative. She is seen today in consultation on the regular medical floor. Currently sitting up at the bedside. Awake and alert in no acute distress. Maintaining O2 saturations in the mid 90s on 3 L/m per nasal cannula. Afebrile. She has a loose nonproductive cough. No fever or chills. No hemoptysis. She's been initiated on ceftriaxone and azithromycin along with DuoNeb inhalations, Pulmicort and Perforomist inhalations, IV Solu-Medrol. Heparin for DVT prophylaxis. The patient is seen today 09/27/2022 in follow-up on the regular medical floor. She is currently sitting up in bed. Awake and alert in no acute distress. States breathing a bit easier today compared to yesterday but not quite back to her baseline. She is maintaining O2 saturations in the 90s on 2 L/m per nasal cannula. No IV fluids. Pro-calcitonin was 0.05. Blood cultures reveal no growth. She is continued on ceftriaxone and azithromycin. Remains on DuoNeb inhalations, Pulmicort and Perforomist inhalations, IV Solu-Medrol. Heparin for DVT prophylaxis. Progress note dated 09/28/2022. 86-year-old black female with a history of severe COPD/asthma. The patient was admitted with a diagnosis of COPD/asthma exacerbation. Today, the patient is seen in room 464. She continues on oxygen at 3 L. She's not receiving any IV fluids. She doesn't feel much better. She may eventually need another bronchoscopy. She continues on appropriate antibiotics, bronchodilators, and corticosteroids. In addition, we gave her some Restoril for sleep at nighttime. No new labs today. Her pro-calcitonin level was 0.05. Antibiotics can be de- escalated. On today's evaluation of 09/29/2022 the patient is still having some congested c ough although improved since yesterday. The patient's continues to be on bronchodilators and the patient continues to be on steroids. No new labs are available from today. D-dimer was low. Pro-calcitonin level was also low. The patient had a CT angiogram of the time of admission that showed no evidence of any pulmonary embolism. There was some atelectatic change in the left lung base. Objective - Vital Signs Vital signs: Vital Signs Temp 97.9 F 09/29/22 07:13 Pulse 82 09/29/22 10:45 Resp 18 09/29/22 07:13 BP 154/82 09/29/22 07:13 Pulse Ox 95 09/29/22 11:00 FiO2 Intake & Output 09/28/22 09/29/22 09/29/22 18:59 06:59 18:59 Other: Voiding Method Toilet # Voids 5 # Bowel Movements 1 - Exam No acute distress, oriented 3. Currently on 3 L of oxygen by nasal cannula. No conversational dyspnea or use of accessory muscles. HEENT examination is grossly unremarkable. Neck supple. Full range of motion. No adenopathy thyromegaly or neck vein distention. Cardiovascular examination reveals regular rhythm rate. S1-S2 normal. No S3 or S4. No discernible murmur noted. Heart rate 88 bpm. Heart sounds are distant. Lungs reveal coarse bilateral inspiratory and expiratory wheezes and rhonchi. Breath sounds are no better. No crackles. Breath sounds are equal bilaterally. Abdomen soft bowel sounds are heard. No masses or tenderness. Extremities are intact. No cyanosis clubbing or edema. Skin is without rash or lesion. Neurologic examination is brief but nonfocal. - Labs CBC & Chem 7: 09/25/22 21:20 09/25/22 21:20 Labs: Microbiology - Last 24 Hours (Table) 09/25/22 21:20 Blood Culture - Preliminary Blood No Growth after 72 hours 09/25/22 21:20 Blood Culture - Preliminary Blood No Growth after 72 hours Assessment and Plan Plan: Acute on chronic hypoxemic respiratory failure secondary to an acute exacerbation of chronic obstructive pulmonary disease. Chest x-ray reveals no acute pulmonary process. Pro-calcitonin pending. Recent bronchoscopy with BAL on 09/03/2022 revealed Lavern only. No evidence of malignancy. CT angiogram ruled out pulmonary embolism. There is a left basilar opacity likely atelectasis versus infection. Procalcitonin 0.05. Ceftriaxone and azithromycin discontinued. Acute exacerbation of chronic obstructive pulmonary disease. History of oxygen dependent COPD, history of multiple bronchoscopies. Former smoker. Hypertension. Hyperlipidemia. History of hearing disorder. History of diverticular disease. Previous pneumonias. Schatzki's ring, status post balloon dilation using a 15-18 mm TTS balloon 06/18/2022. Plan: Clinically stable. Continue bronchodilators. Continue the current treatment with steroids. Possible discharge within the next 24-48 hours based on her overall condition. She is to be more compliant on O2. She has trilogy looked at home. She is on a maintenance prednisone of 10 mg at home. We'll continue to follow.
--- NOTE | 2022-09-29 14:27 | P.PN ---
Subjective Progress Note Date: 09/29/22 Hospital Course: 86-year-old female with PMH of COPD on 2 L home O2, hypertension, dyslipidemia presents to the ED for worsening shortness of breath along with productive cough and URI symptoms. In the ED, her vital signs were stable, however requiring 3 L nasal cannula to maintain O2 saturation greater than 92%. CBC showed platelet count of 456. Coagulation panel within normal limits. D-dimer elevated at 0.6. VBG showed pH 7.49 with pCO2 of 38. CMP showed a bicarb of 31, BUN of 18, glucose 109. Lactic acid negative. Troponin negative. BNP 280. Influenza, RSV COVID-19 negative. Admitted for COPD exacerbation. Subjective: Seen and examined at bedside. No acute events overnight. She claims that she is back to her baseline home oxygen levels. However, continues to have persistent cough, minimal sputum production, feels short of breath. She is also getting occasional chest pain with coughing. She denies any abdominal pain, urinary or bowel complaints. Pertinent positives and negatives as discussed above, a complete review of systems was performed and all other systems are negative. Vitals Signs Reviewed. General: nontoxic, no distress, appears at stated age Derm: warm, dry Head: atraumatic, normocephalic, symmetric Eyes: EOMI, no lid lag, anicteric sclera Mouth: no lip lesion, mucus membranes moist Cardiovascular: S1S2 reg, no murmur Lungs: Bilateral scattered wheezing, no accessory muscle use, supplemental oxygen Abdominal: soft, nontender to palpation, no guarding, no appreciable organomegaly Ext: no gross muscle atrophy, no edema, no contractures Neuro: CN II-XI grossly intact, no focal neuro deficits Psych: Alert, oriented, appropriate affect Data Reviewed Today: Temperature 98.4, pulse 88, respiratory rate 17, 172/80, 95% on 4 L. Assessment and Plan: Active: Acute on chronic hypoxic respiratory failure, resolved Acute COPD exacerbation Thrombocytosis Elevated D-Dimer, normal adjusted for age Metabolic alkalosis, compensatory Uncontrolled hypertension -Pulmonology note reviewed, continue bronchodilators, steroids, likely discharge in 1-2 days. -Pro calcitonin was negative, antibiotics were discontinued -Oxygen requirements back to baseline -Added hydrochlorothiazide 12.5 mg, continue losartan 100 mg daily Chronic: Dyslipidemia DVT ppx: Subcu heparin Code status: Full code Anticipated discharge place: Likely home Anticipated discharge time: 1-2 days Objective - Vital Signs Vital signs: Vital Signs Temp 98.4 F 09/29/22 13:12 Pulse 80 09/29/22 13:47 Resp 17 09/29/22 13:12 BP 172/80 09/29/22 13:12 Pulse Ox 95 09/29/22 13:12 FiO2 Intake & Output 09/28/22 09/29/22 09/29/22 18:59 06:59 18:59 Other: Voiding Method Toilet # Voids 5 1 # Bowel Movements 1 - Labs CBC & Chem 7: 09/25/22 21:20 09/25/22 21:20 Labs: Microbiology - Last 24 Hours (Table) 09/25/22 21:20 Blood Culture - Preliminary Blood No Growth after 72 hours 09/25/22 21:20 Blood Culture - Preliminary Blood No Growth after 72 hours
[2022-09-29] MEDS: hydroCHLOROthiazide 12.5 MG CAP PO SCH (15:12)
[2022-09-29] MEDS: ATORVASTATIN 20 MG TAB PO SCH (22:09)
[2022-09-29] MEDS: DILTIAZEM CD 120 MG CAP.ER.24H PO SCH (22:09)
[2022-09-30] MEDS: methylPREDNISolone SOD SUCCI 125 MG/2 ML VIAL IV SCH ×3 (00:14→13:03)
[2022-09-30] MEDS: HEPARIN SODIUM,PORCINE/PF 5,000 UNIT/0.5 ML SYRINGE SQ SCH ×3 (00:14→15:30)
[2022-09-30] MEDS: hydroCHLOROthiazide 12.5 MG CAP PO SCH (08:14)
[2022-09-30] MEDS: BENZONATATE 100 MG CAP PO SCH ×2 (08:14→15:30)
[2022-09-30] MEDS: LOSARTAN 50 MG TAB PO SCH (08:14)
[2022-09-30] MEDS: METOPROLOL SUCCINATE (ER) 25 MG TAB.ER.24H PO SCH (08:14)
[2022-09-30] MEDS: BUDESONIDE 1 MG/2 ML NEBU INHALATION SCH (08:31)
[2022-09-30] MEDS: IPRATROPIUM-ALBUTEROL 3 ML NEB INHALATION SCH ×3 (08:32→15:34)
[2022-09-30] MEDS: FORMOTEROL FUMARATE 20 MCG/2 ML NEBU INHALATION SCH (08:32)
[2022-09-30 14:29] VITALS: BP 181/79; RESP 16; TEMP 97.8
[2022-09-30] MEDS ORDERED: hydroCHLOROthiazide 12.5 MG CAP PO STA (15:12)
--- NOTE | 2022-09-30 15:16 | P.PN ---
Subjective Progress Note Date: 09/30/22 Hospital Course: 86-year-old female with PMH of COPD on 2 L home O2, hypertension, dyslipidemia presents to the ED for worsening shortness of breath along with productive cough and URI symptoms. In the ED, her vital signs were stable, however requiring 3 L nasal cannula to maintain O2 saturation greater than 92%. CBC showed platelet count of 456. Coagulation panel within normal limits. D-dimer elevated at 0.6. VBG showed pH 7.49 with pCO2 of 38. CMP showed a bicarb of 31, BUN of 18, glucose 109. Lactic acid negative. Troponin negative. BNP 280. Influenza, RSV COVID-19 negative. Admitted for COPD exacerbation. Breathing is getting slightly better. Subjective: Seen and examined at bedside. No acute events overnight. She claims that she is almost back to her baseline in terms of breathing. Still having persistent cough and sputum production. She is also having dysphagia. She denies any abdominal pain, urinary or bowel complaints. Pertinent positives and negatives as discussed above, a complete review of systems was performed and all other systems are negative. Vitals Signs Reviewed. General: nontoxic, no distress, appears at stated age Derm: warm, dry Head: atraumatic, normocephalic, symmetric Eyes: EOMI, no lid lag, anicteric sclera Mouth: no lip lesion, mucus membranes moist Cardiovascular: S1S2 reg, no murmur Lungs: Bilateral scattered wheezing, no accessory muscle use, supplemental oxygen Abdominal: soft, nontender to palpation, no guarding, no appreciable organomegaly Ext: no gross muscle atrophy, no edema, no contractures Neuro: CN II-XI grossly intact, no focal neuro deficits Psych: Alert, oriented, appropriate affect Data Reviewed Today: Temperature 97.5, pulse 68, respiratory rate 17, 164/82, saturating at 97% on 2 L. Assessment and Plan: Active: Acute on chronic hypoxic respiratory failure, resolved Acute COPD exacerbation Thrombocytosis Elevated D-Dimer, normal adjusted for age Metabolic alkalosis, compensatory Uncontrolled hypertension Dysphagia and Schatzki's ring, status post esophageal dilatation -Pulmonology following, continue bronchodilators, steroids, likely discharge in 1-2 days. -Pro calcitonin was negative, antibiotics were discontinued -Oxygen requirements back to baseline --Chlorothiazide increased to 25 mg, continue losartan 100 mg daily Chronic: Dyslipidemia DVT ppx: Subcu heparin Code status: Full code Anticipated discharge place: Likely home Anticipated discharge time: 1-2 days Objective - Vital Signs Vital signs: Vital Signs Temp 97.8 F 09/30/22 14:00 Pulse 81 09/30/22 14:00 Resp 16 09/30/22 14:00 BP 181/79 09/30/22 14:00 Pulse Ox 90 L 09/30/22 14:00 FiO2 Intake & Output 09/29/22 09/30/22 09/30/22 18:59 06:59 18:59 Other: Voiding Method Toilet # Voids 6 2 - Labs CBC & Chem 7: 09/25/22 21:20 09/25/22 21:20 Labs: Microbiology - Last 24 Hours (Table) 09/29/22 21:18 Sputum Culture - Preliminary Sputum 09/25/22 21:20 Blood Culture - Preliminary Blood No Growth after 96 hours 09/25/22 21:20 Blood Culture - Preliminary Blood No Growth after 96 hours
[2022-09-30 15:36] VITALS: PULSE 82
--- NOTE | 2022-09-30 15:51 | P.PN ---
Subjective Progress Note Date: 09/30/22 This is a very pleasant 86-year-old female patient with a known history of chronic obstructive pulmonary disease, oxygen dependent, hyperlipidemia, hypertension, former smoker, osteoarthritis, hard of hearing. She's been having ongoing issues with recurrent exacerbations of her COPD. She has been admitted here every month this year so far. She did undergo bronchoscopy with BAL again by Dr. Gilbert on 09/03/2022 with findings of Lavern only. No evidence of malignancy. She was also seen by him last week in the office and was continued on oral prednisone. She presented here to the emergency room yesterday with worsening shortness of breath, cough or congestion. Chest x-ray reveals bibasilar atelectasis. No evidence of pneumothorax, pleural effusion or focal consolidation. CT angiogram ruled out pulmonary embolism again with noted left basilar opacity more likely atelectasis versus infection/aspiration. Evidence of severe COPD. White count 8.2. Hemoglobin 13.4. Platelets 456. D-dimer 0.60. Sodium 142. Potassium 4.0. Bicarb 31. BUN 18. Creatinine 0.75. Troponin negative. ProBNP 280. Influenza screen negative. COVID-19 screen negative. RSV screen negative. She is seen today in consultation on the regular medical floor. Currently sitting up at the bedside. Awake and alert in no acute distress. Maintaining O2 saturations in the mid 90s on 3 L/m per nasal cannula. Afebrile. She has a loose nonproductive cough. No fever or chills. No hemoptysis. She's been initiated on ceftriaxone and azithromycin along with DuoNeb inhalations, Pulmicort and Perforomist inhalations, IV Solu-Medrol. Heparin for DVT prophylaxis. The patient is seen today 09/27/2022 in follow-up on the regular medical floor. She is currently sitting up in bed. Awake and alert in no acute distress. States breathing a bit easier today compared to yesterday but not quite back to her baseline. She is maintaining O2 saturations in the 90s on 2 L/m per nasal cannula. No IV fluids. Pro-calcitonin was 0.05. Blood cultures reveal no growth. She is continued on ceftriaxone and azithromycin. Remains on DuoNeb inhalations, Pulmicort and Perforomist inhalations, IV Solu-Medrol. Heparin for DVT prophylaxis. Progress note dated 09/28/2022. 86-year-old black female with a history of severe COPD/asthma. The patient was admitted with a diagnosis of COPD/asthma exacerbation. Today, the patient is seen in room 464. She continues on oxygen at 3 L. She's not receiving any IV fluids. She doesn't feel much better. She may eventually need another bronchoscopy. She continues on appropriate antibiotics, bronchodilators, and corticosteroids. In addition, we gave her some Restoril for sleep at nighttime. No new labs today. Her pro-calcitonin level was 0.05. Antibiotics can be de- escalated. On today's evaluation of 09/29/2022 the patient is still having some congested c ough although improved since yesterday. The patient's continues to be on bronchodilators and the patient continues to be on steroids. No new labs are available from today. D-dimer was low. Pro-calcitonin level was also low. The patient had a CT angiogram of the time of admission that showed no evidence of any pulmonary embolism. There was some atelectatic change in the left lung base. On today's evaluation of 09/30/2022, I'm seeing the patient for a follow-up. The patient is currently on oxygen and she is at 92% at 2 L/m nasal cannula. She has a congested cough. She is gradually improving. She had an episode yesterday where she choked on food material. She does have an esophageal ring/stenosis and she has required several dilatations in the past. She appeared to have increased cough yesterday for around 20 minutes and ultimately the subsided. No labs are available from today. She remains on a combination of bronchodilators. She is also on steroids and she has been maintained on IV Solu-Medrol. Patient is on Tessalon Perles for cough suppression. She has limited on Trelegy Ellipta on an outpatient basis and she is also on a prednisone maintenance. Objective - Vital Signs Vital signs: Vital Signs Temp 97.8 F 09/30/22 14:00 Pulse 82 09/30/22 15:46 Resp 16 09/30/22 14:00 BP 181/79 09/30/22 14:00 Pulse Ox 90 L 09/30/22 14:00 FiO2 Intake & Output 09/29/22 09/30/22 09/30/22 18:59 06:59 18:59 Other: Voiding Method Toilet # Voids 6 2 - Exam No acute distress, oriented 3. Currently on 3 L of oxygen by nasal cannula. No conversational dyspnea or use of accessory muscles. HEENT examination is grossly unremarkable. Neck supple. Full range of motion. No adenopathy thyromegaly or neck vein distention. Cardiovascular examination reveals regular rhythm rate. S1-S2 normal. No S3 or S4. No discernible murmur noted. Heart rate 88 bpm. Heart sounds are distant. Lungs reveal coarse bilateral inspiratory and expiratory wheezes and rhonchi. Breath sounds are no better. No crackles. Breath sounds are equal bilaterally. Abdomen soft bowel sounds are heard. No masses or tenderness. Extremities are intact. No cyanosis clubbing or edema. Skin is without rash or lesion. Neurologic examination is brief but nonfocal. - Labs CBC & Chem 7: 09/25/22 21:20 09/25/22 21:20 Labs: Microbiology - Last 24 Hours (Table) 09/29/22 21:18 Gram Stain - Final Sputum Sputum Culture - Final 09/25/22 21:20 Blood Culture - Preliminary Blood No Growth after 96 hours 09/25/22 21:20 Blood Culture - Preliminary Blood No Growth after 96 hours Assessment and Plan Plan: Acute on chronic hypoxemic respiratory failure secondary to an acute exacerbation of chronic obstructive pulmonary disease. Chest x-ray reveals no acute pulmonary process. Pro-calcitonin pending. Recent bronchoscopy with BAL on 09/03/2022 revealed Lavern only. No evidence of malignancy. CT angiogram ruled out pulmonary embolism. There is a left basilar opacity likely atelectasis versus infection. Procalcitonin 0.05. Ceftriaxone and azithromycin discontinued. Acute exacerbation of chronic obstructive pulmonary disease. History of oxygen dependent COPD, history of multiple bronchoscopies. Former smoker. Hypertension. Hyperlipidemia. History of hearing disorder. History of diverticular disease. Previous pneumonias. Schatzki's ring, status post balloon dilation using a 15-18 mm TTS balloon 06/18/2022. Plan: Clinically stable. Overall condition is improved. The patient can be discharged home on a prednisone burst taper The patient came in discharged home on Trelegy Ellipta as maintenance, she will continue her prednisone burst taper and go down to 10 mg of prednisone on a daily basis. Continue the albuterol treatments 4 times a day [id number] Continue oxygen therapy Outpatient GI follow-up regarding Schatzki's ring/esophageal narrowing with secondary dysphagia.
--- NOTE | 2022-09-30 16:03 | P.DS ---
Providers Date of admission: 09/26/22 03:13 Expected date of discharge: 09/30/22 Attending physician: Harsh Neal MD Consults: 09/26/22 07:22 Consult Physician Routine Consulting Provider: Buzz Richardson Consult Reason/Comments: COPD Do you want consulting provider notified?: Yes Primary care physician: Po Winchester MD Hospital Course: Discharge Diagnosis: Acute on chronic hypoxic respiratory failure Acute COPD exacerbation Thrombocytosis Elevated D-Dimer, normal adjusted for age Metabolic alkalosis, compensatory Uncontrolled hypertension Dysphagia and Schatzki's ring, status post esophageal dilatation Hospital Course: 86-year-old female with PMH of COPD on 2 L home O2, hypertension, dyslipidemia presents to the ED for worsening shortness of breath along with productive cough and URI symptoms. In the ED, her vital signs were stable, however requiring 3 L nasal cannula to maintain O2 saturation greater than 92%. CBC showed platelet count of 456. Coagulation panel within normal limits. D-dimer elevated at 0.6. VBG showed pH 7.49 with pCO2 of 38. CMP showed a bicarb of 31, BUN of 18, glucose 109. Lactic acid negative. Troponin negative. BNP 280. Influenza, RSV COVID-19 negative. Admitted for COPD exacerbation. Shortness of breath improved on bronchodilators and IV steroids. The pro calcitonin was negative, antibiotics were discontinued. Patient to be discharged on prednisone taper, and we will continue prednisone 10 mg daily. She will follow up with pulmonology. She is also complaining of dysphagia, had recent EGD with esop hageal dilatation for Schatzki's ring. She has a follow-up with GI. Patient seen and examined at bedside. Vital signs reviewed and stable. General: nontoxic, no distress, appears at stated age Derm: warm, dry Head: atraumatic, normocephalic, symmetric Eyes: EOMI, no lid lag, anicteric sclera Mouth: no lip lesion, mucus membranes moist Cardiovascular: S1S2 reg, no murmur Lungs: Bilateral scattered wheezing, no accessory muscle use, supplemental oxygen Abdominal: soft, nontender to palpation, no guarding, no appreciable organomegaly Ext: no gross muscle atrophy, no edema, no contractures Neuro: CN II-XI grossly intact, no focal neuro deficits Psych: Alert, oriented, appropriate affect A total of 36 minutes of time were spent preparing this complex discharge summary. Patient was discharged on 4/19/23 at 16:00. Patient Condition at Discharge: Stable Plan - Discharge Summary Discharge Rx Participant: No New Discharge Prescriptions: New predniSONE 10 mg PO DAILY #90 tab Benzonatate [Tessalon Perles] 200 mg PO TID #30 cap hydroCHLOROthiazide [Hydrodiuril] 25 mg PO DAILY #90 tab Continue Losartan Potassium 100 mg PO DAILY Fluticasone/Umeclidin/Vilanter [Trelegy Ellipta 100-62.5-25] 1 puff INHALATION RT-DAILY Metoprolol Succinate (ER) [Toprol XL] 25 mg PO DAILY Albuterol Inhaler [Ventolin Hfa Inhaler] 2 puff INHALATION RT-Q4H PRN #1 each PRN Reason: Shortness Of Breath Ipratropium-Albuterol Nebulize [Duoneb 0.5 mg-3 mg/3 ml Soln] 3 ml INHALATION RT-Q2H PRN each PRN Reason: Shortness Of Breath Or Wheezing Rosuvastatin [Crestor] 10 mg PO HS Albuterol Nebulized [Ventolin Nebulized] 2.5 mg INHALATION RT-QID Ipratropium-Albuterol Nebulize [Duoneb 0.5 mg-3 mg/3 ml Soln] 3 ml INHALATION RT-Q4H Acetaminophen Tab [Tylenol] 650 mg PO Q6HR PRN tab PRN Reason: Fever And/ Or Pain dilTIAZem HCL [Cardizem CD] 120 mg PO HS Discharge Medication List Losartan Potassium 100 mg PO DAILY 10/30/14 [History] Rosuvastatin [Crestor] 10 mg PO HS 10/20/21 [History] Albuterol Nebulized [Ventolin Nebulized] 2.5 mg INHALATION RT-QID 11/07/21 [History] Fluticasone/Umeclidin/Vilanter [Trelegy Ellipta 100-62.5-25] 1 puff INHALATION RT-DAILY 05/14/22 [History] Ipratropium-Albuterol Nebulize [Duoneb 0.5 mg-3 mg/3 ml Soln] 3 ml INHALATION RT-Q4H 05/14/22 [History] Metoprolol Succinate (ER) [Toprol XL] 25 mg PO DAILY 05/14/22 [History] Albuterol Inhaler [Ventolin Hfa Inhaler] 2 puff INHALATION RT-Q4H PRN #1 each 05/19/22 [Rx] Acetaminophen Tab [Tylenol] 650 mg PO Q6HR PRN tab 06/19/22 [Rx] Ipratropium-Albuterol Nebulize [Duoneb 0.5 mg-3 mg/3 ml Soln] 3 ml INHALATION RT-Q2H PRN each 07/27/22 [Rx] dilTIAZem HCL [Cardizem CD] 120 mg PO HS 09/26/22 [History] Benzonatate [Tessalon Perles] 200 mg PO TID #30 cap 09/30/22 [Rx] hydroCHLOROthiazide [Hydrodiuril] 25 mg PO DAILY #90 tab 09/30/22 [Rx] predniSONE 10 mg PO DAILY #90 tab 09/30/22 [Rx] Follow up Appointment(s)/Referral(s): Po Winchester MD [Primary Care Provider] - 1-2 days Meenu Lehman MD [STAFF PHYSICIAN] - 1 Week Da Gilbert MD [STAFF PHYSICIAN] - 10/16/22 9:45 am Patient Instructions/Handouts: COPD (Chronic Obstructive Pulmonary Disease) (DC), Dysphagia (GEN) Activity/Diet/Wound Care/Special Instructions: Please see pulmonology and GI. Discharge Disposition: HOME SELF-CARE
[2022-10-01] MEDS ORDERED: hydroCHLOROthiazide 25 MG TAB PO SCH (09:00)
== END 2022-09-30 16:38 | disposition home or self-care (01) | DRG 190 ==
LOC: EC 21:18 → 4SSUR 09-26 03:13
PROVIDERS: ADMIT Internal Medicine; ATTEND Internal Medicine
DX: J44.1 Chronic obstructive pulmonary disease with (acute) exacerbation (principal); J96.21 Acute and chronic respiratory failure with hypoxia; E87.3 Alkalosis; J45.901 Unspecified asthma with (acute) exacerbation; J98.11 Atelectasis; E78.5 Hyperlipidemia, unspecified; H91.90 Unspecified hearing loss, unspecified ear; I10 Essential (primary) hypertension; R79.1 Abnormal coagulation profile; D75.839 Thrombocytosis, unspecified; I25.2 Old myocardial infarction; Z20.822 Contact with and (suspected) exposure to COVID-19; K22.2 Esophageal obstruction; K44.9 Diaphragmatic hernia without obstruction or gangrene; T17.928A Food in respiratory tract, part unspecified causing other injury, initial encounter; R13.10 Dysphagia, unspecified; Z99.81 Dependence on supplemental oxygen; M19.90 Unspecified osteoarthritis, unspecified site; Z87.01 Personal history of pneumonia (recurrent); K57.90 Diverticulosis of intestine, part unspecified, without perforation or abscess without bleeding; Z86.010 Personal history of colon polyps; Z86.11 Personal history of tuberculosis; H93.19 Tinnitus, unspecified ear; Z87.11 Personal history of peptic ulcer disease; Z53.9 Procedure and treatment not carried out, unspecified reason; Z79.52 Long term (current) use of systemic steroids; Z79.899 Other long term (current) drug therapy; Z80.0 Family history of malignant neoplasm of digestive organs; Z82.5 Family history of asthma and other chronic lower respiratory diseases; Z96.651 Presence of right artificial knee joint; Z88.5 Allergy status to narcotic agent; Z88.8 Allergy status to other drugs, medicaments and biological substances
CPT/HCPCS: 36415; 71046; 71275; 80053; 82803; 83605; 83735; 83880; 84145; 84484; 85025; 85379; 85610; 85730; 87040; 87070; 87205; 87636; 93005; 94640; 94667; 94760; 96365; 96375; 96376; 99285

== ENCOUNTER 2022-11-27 11:41 | Inpatient (IN) | payer MEDICARE, BC ==
[2022-11-27] MEDS ORDERED: methylPREDNISolone SOD SUCCI 125 MG/2 ML VIAL IV STA (12:02)
[2022-11-27] MEDS ORDERED: ALBUTEROL NEBULIZED 2.5 MG/3 ML INHALATION STA (12:02)
[2022-11-27] MEDS ORDERED: IPRATROPIUM 0.5 MG/2.5 ML NEBU INHALATION STA (12:02)
[2022-11-27] MEDS ORDERED: SODIUM CHLORIDE 0.9% 500 ML 500 ML IV STA (12:02)
[2022-11-27 12:28] LABS: Basophils # (A) 0.1 k/uL (0-0.2); Basophils % (A) 0 %; Eosinophils # (A) 0.6 k/uL (0-0.7); Eosinophils % (A) 5 %; HCT 46.3 % (34.0-46.0); HGB 14.9 gm/dL (11.4-16.0); Lymphocytes # (A) 1.8 k/uL (1.0-4.8); Lymphocytes % (A) 16 %; MCH 29.5 pg (25.0-35.0); MCHC 32.2 g/dL (31.0-37.0); MCV 91.7 fL (80.0-100.0); Mean Platelet Volume 7.8; Monocytes # (A) 0.5 k/uL (0-1.0); Monocytes % (A) 5 %; Neutrophils % (A) 72 %; Platelet Count 489 k/uL (150-450); RBC 5.05 m/uL (3.80-5.40); WBC 11.1 k/uL (3.8-10.6)
[2022-11-27 12:32] LABS: Partial Thromboplastin Time 24.4 sec (22.0-30.0); Prothrombin Time 10.9 sec (9.0-12.0)
[2022-11-27 12:34] LABS: ALT 21 U/L (4-34); AST 24 U/L (14-36); African American GFR (CKD) >90 (>60 ml/min/1.73 sqM); Albumin 4.4 g/dL (3.5-5.0); Alkaline Phosphatase 86 U/L (38-126); Anion Gap 5 mmol/L; Blood Urea Nitrogen 15 mg/dL (7-17); Calcium 9.6 mg/dL (8.4-10.2); Carbon Dioxide 34 mmol/L (22-30); Chloride 100 mmol/L (98-107); Glucose 87 mg/dL (74-99); Non-African American GFR(CKD) 84 (>60 ml/min/1.73 sqM); Potassium 3.6 mmol/L (3.5-5.1); Sodium 139 mmol/L (137-145); Total Bilirubin 0.4 mg/dL (0.2-1.3); Total Protein 7.4 g/dL (6.3-8.2)
--- NOTE | 2022-11-27 13:43 | XR ---
EXAMINATION TYPE: XR chest 2V DATE OF EXAM: 11/27/2022 COMPARISON: 09/25/2022 TECHNIQUE: PA and lateral views submitted. HISTORY: Difficulty breathing FINDINGS: Left lower lobe infiltrate. No pleural effusion or pneumothorax. Emphysematous changes noted. Atheros clerotic change aorta.. Heart size normal and no overt failure. Osseous structures demonstrate hyper trophic and degenerative changes of the spine. Scoliosis of the spine. IMPRESSION: 1. Left lower lobe infiltrate superimposed on background COPD..
--- NOTE | 2022-11-27 13:53 | ED ---
General Adult HPI - General Chief complaint: Shortness of Breath Stated complaint: sob Time Seen by Provider: 11/27/22 11:50 Source: patient, RN notes reviewed, old records reviewed Mode of arrival: wheelchair Limitations: no limitations - History of Present Illness Initial comments: This is an 87-year-old female who has a past medical history significant for COPD per patient states this morning started having significant difficulty breathing and it got progressively worse per patient states she also has a history of asthma. Patient states lately she been coughing and coughing up quite a bit of sputum. Patient denies any chest pain or palpitations. Patient denies any recent fever chills or cough per patient denies abdominal pain patient denies nausea vomiting or diarrhea. - Related Data Home Medications Medication Instructions Recorded Confirmed Losartan Potassium 100 mg PO DAILY 10/30/14 11/27/22 Rosuvastatin [Crestor] 10 mg PO HS 10/20/21 11/27/22 Albuterol Nebulized [Ventolin 2.5 mg INHALATION RT-QID 11/07/21 11/27/22 Nebulized] Fluticasone/Umeclidin/Vilanter 1 puff INHALATION RT-DAILY 05/14/22 11/27/22 [Trelegy Ellipta 100-62.5-25] Ipratropium-Albuterol Nebulize 3 ml INHALATION RT-Q4H 05/14/22 11/27/22 [Duoneb 0.5 mg-3 mg/3 ml Soln] Metoprolol Succinate (ER) [Toprol 25 mg PO DAILY 05/14/22 11/27/22 XL] dilTIAZem HCL [Cardizem CD] 120 mg PO HS 09/26/22 11/27/22 Benzonatate [Tessalon Perle] 200 mg PO TID 11/27/22 11/27/22 Previous Rx's Medication Instructions Recorded Albuterol Inhaler [Ventolin Hfa 2 puff INHALATION RT-Q4H PRN #1 05/19/22 Inhaler] each Acetaminophen Tab [Tylenol] 650 mg PO Q6HR PRN tab 06/19/22 Ipratropium-Albuterol Nebulize 3 ml INHALATION RT-Q2H PRN each 07/27/22 [Duoneb 0.5 mg-3 mg/3 ml Soln] hydroCHLOROthiazide [Hydrodiuril] 25 mg PO DAILY #90 tab 09/30/22 predniSONE 10 mg PO DAILY #90 tab 09/30/22 Allergies Allergy/AdvReac Type Severity Reaction Status Date / Time hydrocodone bitartrate AdvReac states Verified 11/27/22 13:11 [From Vicodin] "doesn't make me feel good" prednisone AdvReac Hallucinati Verified 11/27/22 13:11 ons Review of Systems ROS Statement: Those systems with pertinent positive or pertinent negative responses have been documented in the HPI. ROS Other: All systems not noted in ROS Statement are negative. 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 Last Myocardial Infarction Date:: 40 years ago History of Any Multi-Drug Resistant Organisms: None Reported Past Surgical History: Cholecystectomy, Hysterectomy, Orthopedic Surgery Additional Past Surgical History / Comment(s): KNEE arthroscopy, COLONOSCOPY- LARGE POLYP REMOVED, EGD, cataracts, Right TKA (10/21/21) Past Anesthesia/Blood Transfusion Reactions: No Reported Reaction Additional Past Anesthesia/Blood Transfusion Reaction / Comment(s): No hx blood transfusion. Past Psychological History: No Psychological Hx Reported Smoking Status: Former smoker Past Alcohol Use History: None Reported Past Drug Use History: None Reported - Past Family History Sister(s) Family Medical History: Cancer Additional Family Medical History / Comment(s): #1 sister colon cancer, # 2 sister lung cancer. Father Family Medical History: Cancer Additional Family Medical History / Comment(s): Prostate cancer. Mother Family Medical History: Asthma Additional Family Medical History / Comment(s): Heart problems. General Exam - General Exam Comments Initial Comments: GENERAL: Patient is well-developed and well-nourished. Patient is nontoxic and well- hydrated and is in moderate distress. ENT: Neck is soft and supple. No significant lymphadenopathy is noted. Oropharynx is clear. Moist mucous membranes. Neck has full range of motion without eliciting any pain. EYES: The sclera were anicteric and conjunctiva were pink and moist. Extraocular movements were intact and pupils were equal round and reactive to light. Eyelids were unremarkable. PULMONARY: Diffuse expiratory wheezing. CARDIOVASCULAR: Patient is tachycardic at 110 bpm ABDOMEN: Soft and nontender with normal bowel sounds. SKIN: Skin is clear with no lesions or rashes and otherwise unremarkable. NEUROLOGIC: Patient is alert and oriented x3. Cranial nerves II through XII are grossly intact. Motor and sensory are also intact. Normal speech, volume and content. Symmetrical smile. MUSCULOSKELETAL: Normal extremities with adequate strength and full range of motion. LYMPHATICS: No significant lymphadenopathy is noted PSYCHIATRIC: Normal psychiatric evaluation. Limitations: no limitations Course Vital Signs 11/27/22 11/27/22 11/27/22 11:44 11:46 12:06 Temperature 97.9 F Pulse Rate 107 H Respiratory 22 22 Rate Blood Pressure 143/85 O2 Sat by Pulse 94 L 97 Oximetry 11/27/22 11/27/22 11/27/22 12:33 12:55 14:21 Temperature Pulse Rate 102 H 102 H 80 Respiratory 20 Rate Blood Pressure 144/64 O2 Sat by Pulse 98 Oximetry Medical Decision Making - Medical Decision Making EKG was interpreted by myself shows sinus tachycardia at [address] interval 240 QRS 77 QT interval 342 QTC is 41 per patient's EKG shows no ST segment elevation or depression. Was pt. sent in by a medical professional or institution ([facility], WOOD ENGRAVER, urgent care, hospital, or custodial...) When possible be specific @ -No Did you speak to anyone other than the patient for history (EMS, parent, family, police, friend...)? What history was obtained from this source @ -No Did you review nursing and triage notes (agree or disagree)? Why? @ -I reviewed and agree with nursing and triage notes Were old charts reviewed (outside hosp., previous admission, EMS record, old EKG, old radiological studies, urgent care reports/EKG's, custodial records)? Report findings @ -I reviewed previous x-rays previous lab work on previous charts on this patient Differential Diagnosis (chest pain, altered mental status, abdominal pain women, abdominal pain men, vaginal bleeding, weakness, fever, dyspnea, syncope, headache, dizziness, GI bleed, back pain, seizure, CVA, palpatations, mental health, musculoskeletal)? @ -Differential Dyspnea: Coronary syndrome, arrhythmia, tamponade, asthma, COPD, pulmonary embolism, pneumonia, pneumothorax, pulmonary effusion, anaphylaxis, diabetic ketoacidosis, flailed chest, pulmonary contusion, diaphragmatic rupture, anemia, neuromuscular, this is not meant to be an all-inclusive list. EKG interpreted by me (3pts min.). @ -As above X-rays interpreted by me (1pt min.). @ -Chest x-ray shows a left lower lobe pneumonia CT interpreted by me (1pt min.). @ -None done U/S interpreted by me (1pt. min.). @ -None done What testing was considered but not performed or refused? (CT, X-rays, U/S, labs)? Why? @ -None What meds were considered but not given or refused? Why? @ -None Did you discuss the management of the patient with other professionals (professionals i.e. , PA, WOOD ENGRAVER, lab, RT, psych nurse, licensed clinical social worker, telephone coin box collector, teacher, chief legal officer, supervisor case loading)? Give summary @ -[facility] Was smoking cessation discussed for >3mins.? @ -No Was critical care preformed (if so, how long)? @ -35 minutes Were there social determinants of health that impacted care today? How? (Homelessness, low income, unemployed, alcoholism, drug addiction, transportation, low edu. Level, literacy, decrease access to med. care, penitentiary, rehab)? @ -No Was there de-escalation of care discussed even if they declined (Discuss DNR or withdrawal of care, Hospice)? DNR status @ -No What co-morbidities impacted this encounter? (DM, HTN, Smoking, COPD, CAD, Cancer, CVA, ARF, Chemo, Hep., AIDS, mental health diagnosis, sleep apnea, morbid obesity)? @ -None Was patient admitted / discharged? Hospital course, mention meds given and route, prescriptions, significant lab abnormalities, going to OR and other pertinent info. @ -Patient was given multiple breathing treatments steroids and antibiotics in the emergency department to treat the exacerbation of COPD as well as treat the pneumonia. I spoke with the [facility] stay agreed to admit the patient admitted the patient I wrote admitting orders. Undiagnosed new problem with uncertain prognosis? @ -No Drug Therapy requiring intensive monitoring for toxicity (Heparin, Nitro, Insulin, Cardizem)? @ -No Were any procedures done? @ -No Diagnosis/symptom? @ -COPD exacerbation Acute, or Chronic, or Acute on Chronic? @ -Acute Uncomplicated (without systemic symptoms) or Complicated (systemic symptoms)? @ -Complicated Side effects of treatment? @ -No Exacerbation, Progression, or Severe Exacerbation? @ -No Poses a threat to life or bodily function? How? (Chest pain, USA, SC, pneumonia, PE, COPD, DKA, ARF, appy, cholecystitis, CVA, Diverticulitis, Homicidal, Suicidal, threat to staff... and all critical care pts) @ -Yes this can lead hypoxia which made and organ dysfunction Diagnosis/symptom? @ -Pneumonia Acute, or Chronic, or Acute on Chronic? @ -acute Uncomplicated (without systemic symptoms) or Complicated (systemic symptoms)? @ -Complicated Side effects of treatment? @ -none Exacerbation, Progression, or Severe Exacerbation] @ -no Poses a threat to life or bodily function? @ -Yes asleep hypoxia and end organ dysfunction - Lab Data Result diagrams: 11/27/22 12:09 11/27/22 12:09 Lab Results 11/27/22 11/27/22 11/27/22 Range/Units 12:09 12:09 12:09 WBC 11.1 H (3.8-10.6) k/uL RBC 5.05 (3.80-5.40) m/uL Hgb 14.9 (11.4-16.0) gm/dL Hct 46.3 H (34.0-46.0) % MCV 91.7 (80.0-100.0) fL MCH 29.5 (25.0-35.0) pg MCHC 32.2 (31.0-37.0) g/dL RDW 15.0 (11.5-15.5) % Plt Count 489 H (150-450) k/uL MPV 7.8 Neutrophils % 72 % Lymphocytes % 16 % Monocytes % 5 % Eosinophils % 5 % Basophils % 0 % Neutrophils # 8.0 H (1.3-7.7) k/uL Lymphocytes # 1.8 (1.0-4.8) k/uL Monocytes # 0.5 (0-1.0) k/uL Eosinophils # 0.6 (0-0.7) k/uL Basophils # 0.1 (0-0.2) k/uL PT 10.9 (9.0-12.0) sec INR 1.0 (<1.2) APTT 24.4 (22.0-30.0) sec Sodium 139 (137-145) mmol/L Potassium 3.6 (3.5-5.1) mmol/L Chloride 100 (98-107) mmol/L Carbon Dioxide 34 H (22-30) mmol/L Anion Gap 5 mmol/L BUN 15 (7-17) mg/dL Creatinine 0.60 (0.52-1.04) mg/dL Est GFR (CKD-EPI)AfAm >90 (>60 ml/min/1.73 sqM) Est GFR (CKD-EPI)NonAf 84 (>60 ml/min/1.73 sqM) Glucose 87 (74-99) mg/dL Plasma Lactic Acid Jace (0.7-2.0) mmol/L Calcium 9.6 (8.4-10.2) mg/dL Total Bilirubin 0.4 (0.2-1.3) mg/dL AST 24 (14-36) U/L ALT 21 (4-34) U/L Alkaline Phosphatase 86 (38-126) U/L Troponin I (0.000-0.034) ng/mL Total Protein 7.4 (6.3-8.2) g/dL Albumin 4.4 (3.5-5.0) g/dL 11/27/22 11/27/22 Range/Units 12:09 12:09 WBC (3.8-10.6) k/uL RBC (3.80-5.40) m/uL Hgb (11.4-16.0) gm/dL Hct (34.0-46.0) % MCV (80.0-100.0) fL MCH (25.0-35.0) pg MCHC (31.0-37.0) g/dL RDW (11.5-15.5) % Plt Count (150-450) k/uL MPV Neutrophils % % Lymphocytes % % Monocytes % % Eosinophils % % Basophils % % Neutrophils # (1.3-7.7) k/uL Lymphocytes # (1.0-4.8) k/uL Monocytes # (0-1.0) k/uL Eosinophils # (0-0.7) k/uL Basophils # (0-0.2) k/uL PT (9.0-12.0) sec INR (<1.2) APTT (22.0-30.0) sec Sodium (137-145) mmol/L Potassium (3.5-5.1) mmol/L Chloride (98-107) mmol/L Carbon Dioxide (22-30) mmol/L Anion Gap mmol/L BUN (7-17) mg/dL Creatinine (0.52-1.04) mg/dL Est GFR (CKD-EPI)AfAm (>60 ml/min/1.73 sqM) Est GFR (CKD-EPI)NonAf (>60 ml/min/1.73 sqM) Glucose (74-99) mg/dL Plasma Lactic Acid Jace 1.1 (0.7-2.0) mmol/L Calcium (8.4-10.2) mg/dL Total Bilirubin (0.2-1.3) mg/dL AST (14-36) U/L ALT (4-34) U/L Alkaline Phosphatase (38-126) U/L Troponin I <0.012 (0.000-0.034) ng/mL Total Protein (6.3-8.2) g/dL Albumin (3.5-5.0) g/dL Critical Care Time Critical Care Time: Yes Total Critical Care Time: 35 Disposition Clinical Impression: Pneumonia, Acute exacerbation of chronic obstructive pulmonary disease Disposition: ADMITTED IP TO THIS HOSP Referrals: Da Gilbert MD [Primary Care Provider] - 1-2 days Time of Disposition: 14:18
[2022-11-27] MEDS ORDERED: IPRATROPIUM-ALBUTEROL 3 ML NEB INHALATION PRN (14:19)
[2022-11-27] MEDS ORDERED: NALOXONE 0.4 MG/ML 1 ML VIAL IVP PRN (14:19)
[2022-11-27] MEDS ORDERED: cefTRIAXone IN SWFI 1,000 MG/10 ML SYRINGE IVP STA (14:24)
[2022-11-27] MEDS ORDERED: AZITHROMYCIN 500 MG in SODIUM CHLORIDE 0.9% 250 ML IVPB STA (14:25)
[2022-11-27 15:01] LABS: VBG PH 7.36 (7.31-7.41)
[2022-11-27] MEDS: IPRATROPIUM-ALBUTEROL 3 ML NEB INHALATION SCH ×2 (16:22→21:58)
[2022-11-27] MEDS: methylPREDNISolone SOD SUCCI 125 MG/2 ML VIAL IV SCH (18:20)
[2022-11-27] MEDS ORDERED: ALBUTEROL NEBULIZED 2.5 MG/3 ML INHALATION PRN (19:35)
[2022-11-27] MEDS: BENZONATATE 100 MG CAP PO SCH (21:21)
[2022-11-27] MEDS: ATORVASTATIN 20 MG TAB PO SCH (21:21)
[2022-11-27] MEDS: DILTIAZEM CD 120 MG CAP.ER.24H PO SCH (21:22)
--- NOTE | 2022-11-28 00:45 | P.HPIM ---
History of Present Illness H&P Date: 11/27/22 Chief Complaint: Shortness of breath Patient is a 86-year-old female with known history of COPD on home oxygen, hypertension, hyperlipidemia, osteoarthritis, hearing disorder/deafness, history of diverticulosis, chronic back pain and prior history of smoking and CBD oil occasional use for arthritic pain presents to ER with complaints of worsening shortness of breath for the past 1 month. Patient was seen by her pulmonary physician in August 2022. Patient states that he is also having cough and yellow sputum production. Denies any fever or chills. No nausea vomiting or abdominal pain or diarrhea. Denies any complaints of chest pain. No leg swelling. Chest x-ray showed left lower lobe infiltrate superimposed on background COPD EKG showed sinus tachycardia Laboratory data showed WBC 11.1 hemoglobin 14.9 and platelets 489 Sodium 139 potassium 3.6 chloride 100 bicarb is 34 BUN 15 and creatinine 0.6. Lowering of spine elevated. Lactic acid 1.1 and troponin x1 negative. Review of Systems Constitutional: Patient denies any fever or chills . no Generalized weakness. Abdomen: Patient denied any nausea or vomiting or abd. pain Cardiovascular: Patient denies any chest pain. Patient does have short of breath no palpitations. Respiratory: Patient does have cough with sputum production and shortness of breath. Neurologic: Patient denied any numbness or tingling headache. Musculoskeletal: Patient denies any complaints of joint swelling or deformity. Skin: Negative Psychiatric: Negative Endocrine: No heat or cold intolerance. No recent weight gain. Genitourinary: No dysuria or hematuria. 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 Last Myocardial Infarction Date:: 40 years ago History of Any Multi-Drug Resistant Organisms: None Reported Past Surgical History: Cholecystectomy, Hysterectomy, Orthopedic Surgery Additional Past Surgical History / Comment(s): KNEE arthroscopy, COLONOSCOPY- LARGE POLYP REMOVED, EGD, cataracts, Right TKA (10/21/21) Past Anesthesia/Blood Transfusion Reactions: No Reported Reaction Additional Past Anesthesia/Blood Transfusion Reaction / Comment(s): No hx blood transfusion. Past Psychological History: No Psychological Hx Reported Additional Psychological History / Comment(s): She is independent. Smoking Status: Former smoker Past Alcohol Use History: None Reported Additional Past Alcohol Use History / Comment(s): Started smoking 1964, quit smoking 1989, smoked 1ppd. Past Drug Use History: None Reported Additional Drug Use History / Comment(s): Uses cbd oil occ for arthritic pain. Aware no use 24 hrs prior to procedure. - Past Family History Sister(s) Family Medical History: Cancer Additional Family Medical History / Comment(s): #1 sister colon cancer, # 2 sister lung cancer. Father Family Medical History: Cancer Additional Family Medical History / Comment(s): Prostate cancer. Mother Family Medical History: Asthma Additional Family Medical History / Comment(s): Heart problems. Medications and Allergies Home Medications Medication Instructions Recorded Confirmed Type Losartan Potassium 100 mg PO DAILY 10/30/14 11/27/22 History Rosuvastatin [Crestor] 10 mg PO HS 10/20/21 11/27/22 History Albuterol Nebulized [Ventolin 2.5 mg INHALATION RT-QID 11/07/21 11/27/22 History Nebulized] Fluticasone/Umeclidin/Vilanter 1 puff INHALATION RT-DAILY 05/14/22 11/27/22 History [Trelegy Ellipta 100-62.5-25] Ipratropium-Albuterol Nebulize 3 ml INHALATION RT-Q4H 05/14/22 11/27/22 History [Duoneb 0.5 mg-3 mg/3 ml Soln] Metoprolol Succinate (ER) [Toprol 25 mg PO DAILY 05/14/22 11/27/22 History XL] Albuterol Inhaler [Ventolin Hfa 2 puff INHALATION RT-Q4H PRN #1 05/19/22 11/27/22 Rx Inhaler] each Acetaminophen Tab [Tylenol] 650 mg PO Q6HR PRN tab 06/19/22 11/27/22 Rx Ipratropium-Albuterol Nebulize 3 ml INHALATION RT-Q2H PRN each 07/27/22 11/27/22 Rx [Duoneb 0.5 mg-3 mg/3 ml Soln] dilTIAZem HCL [Cardizem CD] 120 mg PO HS 09/26/22 11/27/22 History hydroCHLOROthiazide [Hydrodiuril] 25 mg PO DAILY #90 tab 09/30/22 11/27/22 Rx predniSONE 10 mg PO DAILY #90 tab 09/30/22 11/27/22 Rx Benzonatate [Tessalon Perle] 200 mg PO TID 11/27/22 11/27/22 History Allergies Allergy/AdvReac Type Severity Reaction Status Date / Time hydrocodone bitartrate AdvReac states Verified 11/27/22 13:11 [From Vicodin] "doesn't make me feel good" prednisone AdvReac Hallucinati Verified 11/27/22 13:11 ons Physical Exam Vitals: Vital Signs Temp Pulse Resp BP Pulse Ox 11/27/22 18:22 96 20 123/52 99 11/27/22 16:33 98 11/27/22 16:23 98 11/27/22 14:21 80 20 144/64 98 11/27/22 12:55 102 H 11/27/22 12:33 102 H 11/27/22 12:06 22 11/27/22 11:46 97 11/27/22 11:44 97.9 F 107 H 22 143/85 94 L Intake and Output 11/27/22 11/27/22 11/27/22 06:59 14:59 22:59 Other: Weight 68.039 kg 68.039 kg PHYSICAL EXAMINATION: Patient is lying in the bed comfortably, no acute distress, awake alert and oriented.. HEENT: Normocephalic. Neck is supple. Pupils reactive. Nostrils clear. Oral cavity is moist. Neck reveals no JVD, carotid bruits, or thyromegaly. CHEST EXAMINATION: Trachea is central. Symmetrical expansion. Bilateral diffuse wheezing and scattered rhonchi. CARDIAC: Normal S1, S2 with no gallops. No murmurs ABDOMEN: Soft. Bowel sounds present. Nontender. No organomegaly. No abdominal bruits. Extremities: reveal no edema. No clubbing or cyanosis Neurologically awake, alert, oriented x3 with well-coordinated movements. No focal deficits noted Skin: No rash or skin lesions. Psychiatric: Coperative. Nonsuicidal, Musculoskeletal: No joint swelling or deformity. Normal range of motion. Results CBC & Chem 7: 11/27/22 12:09 11/27/22 12:09 Labs: Abnormal Lab Results - Last 24 Hours (Table) 11/27/22 11/27/22 11/27/22 Range/Units 12:09 12:09 14:50 WBC 11.1 H (3.8-10.6) k/uL Hct 46.3 H (34.0-46.0) % Plt Count 489 H (150-450) k/uL Neutrophils # 8.0 H (1.3-7.7) k/uL VBG pCO2 61 H (37-51) mmHg VBG HCO3 34 H (24-28) mmol/L Carbon Dioxide 34 H (22-30) mmol/L Thrombosis Risk Factor Assmnt - DVT/VTE Prophylaxis DVT/VTE Prophylaxis: Pharmacologic Prophylaxis ordered - Choose All That Apply Any of the Below Risk Factors Present?: Yes Each Factor Represents 1 point: Abnormal pulmonary function (COPD) Other Risk Factors: Yes Each Risk Factor Represents 3 Points: Age 75 years or older Thrombosis Risk Factor Assessment Total Risk Factor Score: 4 Thrombosis Risk Factor Assessment Level: Moderate Risk Assessment and Plan Assessment: Shortness of breath secondary to acute COPD exacerbation Left lower lobe pneumonia Chronic hypoxic respiratory failure on home oxygen at 2 L via nasal cannula as needed.. Hypertension Hyperlipidemia Osteoarthritis History of diverticulosis Chronic back pain Prior history of smoking DVT prophylaxis with heparin subcu Plan: Patient will be continued on oxygen supplementation. Continue with IV Solu- Medrol 60 mg every 6 hourly, DuoNebs and Symbicort. Continue with ceftriaxone and azithromycin. Follow-up blood cultures and procalcitonin level. Continue with home blood pressure medications and pain management and follow-up closely. Time with Patient: Greater than 30
[2022-11-28] MEDS: methylPREDNISolone SOD SUCCI 125 MG/2 ML VIAL IV SCH ×5 (00:59→23:55)
[2022-11-28 07:15] LABS: African American GFR (CKD) >90 (>60 ml/min/1.73 sqM); Anion Gap 8 mmol/L; Blood Urea Nitrogen 13 mg/dL (7-17); Carbon Dioxide 32 mmol/L (22-30); Chloride 98 mmol/L (98-107); Glucose 138 mg/dL (74-99); Non-African American GFR(CKD) 87 (>60 ml/min/1.73 sqM); Potassium 3.9 mmol/L (3.5-5.1); Sodium 138 mmol/L (137-145)
[2022-11-28 07:20] LABS: Basophils % (A) 0 %; Eosinophils % (A) 0 %; HCT 44.9 % (34.0-46.0); HGB 14.4 gm/dL (11.4-16.0); Lymphocytes # (A) 0.9 k/uL (1.0-4.8); Lymphocytes % (A) 8 %; MCH 29.9 pg (25.0-35.0); MCV 93.4 fL (80.0-100.0); Mean Platelet Volume 8.8; Monocytes # (A) 0.2 k/uL (0-1.0); Monocytes % (A) 2 %; Neutrophils # (A) 11.4 k/uL (1.3-7.7); Neutrophils % (A) 90 %; Platelet Count 485 k/uL (150-450); RBC 4.81 m/uL (3.80-5.40); RDW 14.6 % (11.5-15.5); WBC 12.6 k/uL (3.8-10.6)
[2022-11-28] MEDS: SYMBICORT 80-4.5 MCG INHALER INHALATION SCH ×2 (07:43→22:20)
[2022-11-28] MEDS: IPRATROPIUM-ALBUTEROL 3 ML NEB INHALATION SCH ×4 (07:43→22:20)
[2022-11-28] MEDS: METOPROLOL SUCCINATE (ER) 25 MG TAB.ER.24H PO SCH (08:10)
[2022-11-28] MEDS: HEPARIN SODIUM,PORCINE/PF 5,000 UNIT/0.5 ML SYRINGE SQ SCH ×3 (08:10→23:55)
[2022-11-28] MEDS: BENZONATATE 100 MG CAP PO SCH ×3 (08:10→20:08)
[2022-11-28] MEDS: LOSARTAN 50 MG TAB PO SCH (08:10)
[2022-11-28] MEDS ORDERED: AZITHROMYCIN 500 MG in SODIUM CHLORIDE 0.9% 250 ML IVPB SCH (09:00)
--- NOTE | 2022-11-28 11:14 | P.CNPUL ---
History of Present Illness Consult date: 11/28/22 Requesting physician: Shae Barbosa Reason for consult: asthma Chief complaint: Shortness breath, cough, congestion History of present illness: This is a very pleasant 87-year-old female patient with a known history of chronic obstructive pulmonary disease, oxygen dependent, hyperlipidemia, hypertension, former smoker, osteoarthritis, hard of hearing. She's been having ongoing issues with recurrent exacerbations of her COPD. She has been admitted here frequently for exacerbation. She did undergo bronchoscopy with BAL again on 09/03/2022 with findings of Lavern only. No evidence of malignancy. She is maintained on prednisone 10 mg daily along with Trelegy and DuoNeb inhalations. She presented here again yesterday to the emergency department with increasing shortness of breath, cough and congestion. Chest x-ray shows left lower lobe infiltrate/atelectasis superimposed on background COPD. No pleural effusion. No pneumothorax. White count 12.6. Hemoglobin 14.4. Sodium 138. Potassium 3.9. Bicarb 32. BUN 13. Creatinine 0.53. Procalcitonin was negative at 0.05. She had been initiated on DuoNeb inhalations, Symbicort, IV Solu-Medrol, antibiotics in the form of ceftriaxone and azithromycin. Tessalon Perles. Heparin for DVT prophylaxis. She is seen today in consultation on the regular medical floor. Currently sitting up in bed. Awake and alert in no acute d istress. Maintaining O2 saturations up to 100% on 3 L/m per nasal cannula. Afebrile. Hemodynamically stable. Review of Systems REVIEW OF SYSTEMS: CONSTITUTIONAL: Denies any recent significant weight loss or weight gain. EYES: Denies change in vision. EARS, NOSE, MOUTH, THROAT: Denies headaches, denies sore throat. CARDIOVASCULAR: Denies chest pain, palpitations or syncopal episodes. RESPIRATORY: Positive for shortness of breath, cough, congestion no hemoptysis. GASTROINTESTINAL: Denies change in appetite, denies abdominal pain GENITOURINARY: Denies hematuria, denies infections. MUSKULOSKELETAL: Denies pain, denies swelling. INTEGUMENTARY: Denies rash, denies eczema. NEUROLOGICAL: Denies recent memory loss, no recent seizure activity. PSYCHIATRIC: Denies anxiety, denies depression. HEMATOLOGIC/LYMPHATIC: Denies anemia, denies enlarged lymph nodes. 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 Last Myocardial Infarction Date:: 40 years ago History of Any Multi-Drug Resistant Organisms: None Reported Past Surgical History: Cholecystectomy, Hysterectomy, Orthopedic Surgery Additional Past Surgical History / Comment(s): KNEE arthroscopy, COLONOSCOPY- LARGE POLYP REMOVED, EGD, cataracts, Right TKA (10/21/21) Past Anesthesia/Blood Transfusion Reactions: No Reported Reaction Additional Past Anesthesia/Blood Transfusion Reaction / Comment(s): No hx blood transfusion. Past Psychological History: No Psychological Hx Reported Additional Psychological History / Comment(s): She is independent. Smoking Status: Former smoker Past Alcohol Use History: None Reported Additional Past Alcohol Use History / Comment(s): Started smoking 1964, quit smoking 1989, smoked 1ppd. Past Drug Use History: None Reported Additional Drug Use History / Comment(s): Uses cbd oil occ for arthritic pain. Aware no use 24 hrs prior to procedure. - Past Family History Sister(s) Family Medical History: Cancer Additional Family Medical History / Comment(s): #1 sister colon cancer, # 2 sister lung cancer. Father Family Medical History: Cancer Additional Family Medical History / Comment(s): Prostate cancer. Mother Family Medical History: Asthma Additional Family Medical History / Comment(s): Heart problems. Medications and Allergies Home Medications Medication Instructions Recorded Confirmed Type Losartan Potassium 100 mg PO DAILY 10/30/14 11/27/22 History Rosuvastatin [Crestor] 10 mg PO HS 10/20/21 11/27/22 History Albuterol Nebulized [Ventolin 2.5 mg INHALATION RT-QID 11/07/21 11/27/22 History Nebulized] Fluticasone/Umeclidin/Vilanter 1 puff INHALATION RT-DAILY 05/14/22 11/27/22 History [Trelegy Ellipta 100-62.5-25] Ipratropium-Albuterol Nebulize 3 ml INHALATION RT-Q4H 05/14/22 11/27/22 History [Duoneb 0.5 mg-3 mg/3 ml Soln] Metoprolol Succinate (ER) [Toprol 25 mg PO DAILY 05/14/22 11/27/22 History XL] Albuterol Inhaler [Ventolin Hfa 2 puff INHALATION RT-Q4H PRN #1 05/19/22 11/27/22 Rx Inhaler] each Acetaminophen Tab [Tylenol] 650 mg PO Q6HR PRN tab 06/19/22 11/27/22 Rx Ipratropium-Albuterol Nebulize 3 ml INHALATION RT-Q2H PRN each 07/27/22 11/27/22 Rx [Duoneb 0.5 mg-3 mg/3 ml Soln] dilTIAZem HCL [Cardizem CD] 120 mg PO HS 09/26/22 11/27/22 History hydroCHLOROthiazide [Hydrodiuril] 25 mg PO DAILY #90 tab 09/30/22 11/27/22 Rx predniSONE 10 mg PO DAILY #90 tab 09/30/22 11/27/22 Rx Benzonatate [Tessalon Perle] 200 mg PO TID 11/27/22 11/27/22 History Allergies Allergy/AdvReac Type Severity Reaction Status Date / Time hydrocodone bitartrate AdvReac states Verified 11/27/22 13:11 [From Vicodin] "doesn't make me feel good" prednisone AdvReac Hallucinati Verified 11/27/22 13:11 ons Physical Exam Vitals: Vital Signs Temp Pulse Pulse Resp BP BP Pulse Ox 11/28/22 08:01 80 11/28/22 07:44 80 99 11/28/22 07:20 71 16 11/28/22 07:03 97.6 F 71 16 146/76 100 11/28/22 01:15 97.8 F 94 18 175/83 99 11/27/22 20:22 98.1 F 90 18 129/73 98 11/27/22 18:22 96 20 123/52 99 11/27/22 16:33 98 11/27/22 16:23 98 11/27/22 14:21 80 20 144/64 98 11/27/22 12:55 102 H 11/27/22 12:33 102 H 11/27/22 12:06 22 11/27/22 11:46 97 11/27/22 11:44 97.9 F 107 H 22 143/85 94 L Intake and Output 11/27/22 11/28/22 11/28/22 22:59 06:59 14:59 Other: Voiding Method Toilet Toilet # Voids 2 Weight 68.039 kg GENERAL EXAM: Alert, very pleasant 87-year-old female, on 3 L nasal cannula, comfortable in no apparent distress. HEAD: Normocephalic. EYES: Normal reaction of pupils, equal size. NOSE: Clear with pink turbinates. THROAT: No erythema or exudates. NECK: No masses, no JVD. CHEST: No chest wall deformity. LUNGS: Equal air entry with bilateral wheeze, diminished. CVS: S1 and S2 normal with no audible murmur, regular rhythm. ABDOMEN: No hepatosplenomegaly, normal bowel sounds, no guarding or rigidity. SPINE: No scoliosis or deformity SKIN: No rashes CENTRAL NERVOUS SYSTEM: No focal deficits, tone is normal in all 4 extremities. EXTREMITIES: There is no peripheral edema. No clubbing, no cyanosis. Peripheral pulses are intact. Results - Laboratory Findings CBC and BMP: 11/28/22 05:48 11/28/22 05:48 PT/INR, D-dimer PT 10.9 sec (9.0-12.0) 11/27/22 12:09 INR 1.0 (<1.2) 11/27/22 12:09 Abnormal lab findings: Abnormal Labs 11/27/22 11/27/22 11/27/22 12:09 12:09 14:50 WBC 11.1 H Hct 46.3 H Plt Count 489 H Neutrophils # 8.0 H Lymphocytes # VBG pCO2 61 H VBG HCO3 34 H Carbon Dioxide 34 H Glucose 11/28/22 11/28/22 05:48 05:48 WBC 12.6 H Hct Plt Count 485 H Neutrophils # 11.4 H Lymphocytes # 0.9 L VBG pCO2 VBG HCO3 Carbon Dioxide 32 H Glucose 138 H - Diagnostic Findings Chest x-ray: image reviewed Assessment and Plan Assessment: Acute on chronic hypoxemic respiratory failure secondary to an acute exacerbation of chronic obstructive pulmonary disease. Pro-calcitonin 0.05 Frequent exacerbations of COPD requiring frequent admissions Oxygen dependent, steroid dependent chronic obstructive pulmonary disease with history of multiple bronchoscopies Former smoker Hypertension Hyperlipidemia History of hearing disorder History of diverticular disease Schatzki's ring status post balloon dilatation in June 2022 Plan: The patient was seen and evaluated Chest x-ray, labs and medications reviewed Continue Symbicort, DuoNeb inhalations, IV Solu-Medrol Procalcitonin negative Discontinue ceftriaxone and azithromycin Add empiric doxycycline Titrate down the FiO2 as tolerated Increase her activity as tolerated We will continue to follow make further recommendations based on her clinical status I have personally seen and examined the patient, performed the documentation and the assessment and plan as written. Number of minutes spent on the visit: 20.
[2022-11-28] MEDS: ACETAMINOPHEN TAB 325 MG TAB PO PRN (20:00)
[2022-11-28] MEDS: ATORVASTATIN 20 MG TAB PO SCH (20:01)
[2022-11-28] MEDS: DILTIAZEM CD 120 MG CAP.ER.24H PO SCH (20:01)
[2022-11-28] MEDS: DOXYCYCLINE 100 MG CAP PO SCH (20:05)
[2022-11-28] MEDS: MELATONIN 5 MG TABLET PO SCH (21:32)
[2022-11-29 06:38] LABS: African American GFR (CKD) 72 (>60 ml/min/1.73 sqM); Anion Gap 6 mmol/L; Blood Urea Nitrogen 23 mg/dL (7-17); Calcium 9.4 mg/dL (8.4-10.2); Carbon Dioxide 33 mmol/L (22-30); Chloride 98 mmol/L (98-107); Glucose 143 mg/dL (74-99); Non-African American GFR(CKD) 62 (>60 ml/min/1.73 sqM); Potassium 4.1 mmol/L (3.5-5.1); Sodium 137 mmol/L (137-145)
[2022-11-29 06:59] LABS: Basophils % (A) 0 %; Eosinophils % (A) 0 %; HCT 42.9 % (34.0-46.0); HGB 13.4 gm/dL (11.4-16.0); Lymphocytes # (A) 0.7 k/uL (1.0-4.8); Lymphocytes % (A) 3 %; MCH 29.4 pg (25.0-35.0); MCHC 31.2 g/dL (31.0-37.0); MCV 94.1 fL (80.0-100.0); Mean Platelet Volume 8.4; Monocytes # (A) 0.4 k/uL (0-1.0); Monocytes % (A) 2 %; Neutrophils # (A) 21.4 k/uL (1.3-7.7); Neutrophils % (A) 95 %; Platelet Count 438 k/uL (150-450); RBC 4.56 m/uL (3.80-5.40); RDW 14.7 % (11.5-15.5); WBC 22.6 k/uL (3.8-10.6)
[2022-11-29] MEDS: IPRATROPIUM-ALBUTEROL 3 ML NEB INHALATION SCH ×4 (07:26→22:20)
[2022-11-29] MEDS: SYMBICORT 80-4.5 MCG INHALER INHALATION SCH ×2 (07:26→22:20)
[2022-11-29] MEDS: methylPREDNISolone SOD SUCCI 125 MG/2 ML VIAL IV SCH ×3 (07:30→16:26)
[2022-11-29] MEDS: ACETAMINOPHEN TAB 325 MG TAB PO PRN (08:01)
[2022-11-29] MEDS: HEPARIN SODIUM,PORCINE/PF 5,000 UNIT/0.5 ML SYRINGE SQ SCH ×2 (08:02→16:26)
[2022-11-29] MEDS: DOXYCYCLINE 100 MG CAP PO SCH ×2 (08:02→21:03)
[2022-11-29] MEDS: LOSARTAN 50 MG TAB PO SCH (08:02)
[2022-11-29] MEDS: METOPROLOL SUCCINATE (ER) 25 MG TAB.ER.24H PO SCH (08:02)
[2022-11-29] MEDS: BENZONATATE 100 MG CAP PO SCH ×3 (08:02→21:03)
[2022-11-29] MEDS ORDERED: BENZOCAINE/MENTHOL LOZENG 1 EACH LOZENGE MUCOUS MEM PRN (09:36)
--- NOTE | 2022-11-29 11:44 | P.PN ---
Subjective Progress Note Date: 11/29/22 This is a very pleasant 87-year-old female patient with a known history of chronic obstructive pulmonary disease, oxygen dependent, hyperlipidemia, hypertension, former smoker, osteoarthritis, hard of hearing. She's been having ongoing issues with recurrent exacerbations of her COPD. She has been admitted here frequently for exacerbation. She did undergo bronchoscopy with BAL again on 09/03/2022 with findings of Lavern only. No evidence of malignancy. She is maintained on prednisone 10 mg daily along with Trelegy and DuoNeb inhalations. She presented here again yesterday to the emergency department with increasing shortness of breath, cough and congestion. Chest x-ray shows left lower lobe infiltrate/atelectasis superimposed on background COPD. No pleural effusion. No pneumothorax. White count 12.6. Hemoglobin 14.4. Sodium 138. Potassium 3.9. Bicarb 32. BUN 13. Creatinine 0.53. Procalcitonin was negative at 0.05. She had been initiated on DuoNeb inhalations, Symbicort, IV Solu-Medrol, antibiotics in the form of ceftriaxone and azithromycin. Tessalon Perles. Heparin for DVT prophylaxis. She is seen today in consultation on the regular medical floor. Currently sitting up in bed. Awake and alert in no acute distress. Maintaining O2 saturations up to 100% on 3 L/m per nasal cannula. Afebrile. Hemodynamically stable. The patient is seen today 11/29/2022 in follow-up on the regular medical floor. She is currently resting comfortably in bed. Awake and alert in no acute distress. She continues with a loose nonproductive cough. Still with some dyspnea on conversation. Dyspnea on exertion. She is maintaining O2 saturations in the 90s on 3 L/m per nasal cannula. She's been afebrile. Hemodynamically stable. Blood cultures reveal no growth to date. White count 22.6. Hemoglobin 13.4. Sodium 137. Potassium 4.1. Bicarb 33. BUN 23. Creatinine 0.86. Glucose 143. Pro-calcitonin was 0.03. She is continued on DuoNeb inhalations, Symbicort, IV Solu-Medrol. Antibiotics empirically in the form of doxycycline. Heparin for DVT prophylaxis. Tessalon perles. Cepacol lozenges. Objective - Vital Signs Vital signs: Vital Signs Temp 98.3 F 11/29/22 07:17 Pulse 76 11/29/22 11:22 Resp 18 11/29/22 08:00 BP 134/88 11/29/22 07:17 Pulse Ox 96 11/29/22 07:17 FiO2 Intake & Output 11/28/22 11/29/22 11/29/22 18:59 06:59 18:59 Other: Voiding Method Toilet Toilet Toilet # Voids 3 1 - Exam GENERAL EXAM: Alert, 87-year-old female, on 3 L nasal cannula, comfortable in no apparent distress. HEAD: Normocephalic. EYES: Normal reaction of pupils, equal size. NOSE: Clear with pink turbinates. THROAT: No erythema or exudates. NECK: No masses, no JVD. CHEST: No chest wall deformity. LUNGS: Equal air entry with bilateral wheeze, diminished. CVS: S1 and S2 normal with no audible murmur, regular rhythm. ABDOMEN: No hepatosplenomegaly, normal bowel sounds, no guarding or rigidity. SPINE: No scoliosis or deformity SKIN: No rashes CENTRAL NERVOUS SYSTEM: No focal deficits, tone is normal in all 4 extremities. EXTREMITIES: There is no peripheral edema. No clubbing, no cyanosis. Peripheral pulses are intact. - Labs CBC & Chem 7: 11/29/22 05:39 11/29/22 05:39 Labs: Abnormal Lab Results - Last 24 Hours (Table) 11/29/22 11/29/22 Range/Units 05:39 05:39 WBC 22.6 H (3.8-10.6) k/uL Neutrophils # 21.4 H (1.3-7.7) k/uL Lymphocytes # 0.7 L (1.0-4.8) k/uL Carbon Dioxide 33 H (22-30) mmol/L BUN 23 H (7-17) mg/dL Glucose 143 H (74-99) mg/dL Microbiology - Last 24 Hours (Table) 11/27/22 12:09 Blood Culture - Preliminary Blood 11/27/22 12:09 Blood Culture - Preliminary Blood Assessment and Plan Assessment: Acute on chronic hypoxemic respiratory failure secondary to an acute exacerbation of chronic obstructive pulmonary disease. Pro-calcitonin 0.03 Frequent exacerbations of COPD requiring frequent admissions Oxygen dependent, steroid dependent chronic obstructive pulmonary disease with history of multiple bronchoscopies Former smoker Hypertension Hyperlipidemia History of hearing disorder History of diverticular disease Schatzki's ring status post balloon dilatation in June 2022 Plan: The patient was seen and evaluated Labs and medications reviewed Continue Symbicort, DuoNeb inhalations, IV Solu-Medrol Empiric doxycycline Titrate down the FiO2 as tolerated Increase her activity as tolerated We will continue to follow I have personally seen and examined the patient, performed the documentation and the assessment and plan as written. Number of minutes spent on the visit: 10.
[2022-11-29 19:34] VITALS: RESP 16
[2022-11-29] MEDS: ATORVASTATIN 20 MG TAB PO SCH (21:03)
[2022-11-29] MEDS: DILTIAZEM CD 120 MG CAP.ER.24H PO SCH (21:03)
[2022-11-29] MEDS: MELATONIN 5 MG TABLET PO SCH (21:03)
[2022-11-30] MEDS: methylPREDNISolone SOD SUCCI 125 MG/2 ML VIAL IV SCH ×3 (00:06→13:14)
[2022-11-30] MEDS: HEPARIN SODIUM,PORCINE/PF 5,000 UNIT/0.5 ML SYRINGE SQ SCH ×2 (00:07→09:11)
--- NOTE | 2022-11-30 01:37 | P.PN ---
Subjective Progress Note Date: 11/28/22 Patient is a 86-year-old female with known history of COPD on home oxygen, hypertension, hyperlipidemia, osteoarthritis, hearing disorder/deafness, history of diverticulosis, chronic back pain and prior history of smoking and CBD oil occasional use for arthritic pain presents to ER with complaints of worsening shortness of breath for the past 1 month. Patient was seen by her pulmonary physician in August 2022. Patient states that he is also having cough and yellow sputum production. Denies any fever or chills. No nausea vomiting or abdominal pain or diarrhea. Denies any complaints of chest pain. No leg swelling. Chest x-ray showed left lower lobe infiltrate superimposed on background COPD EKG showed sinus tachycardia Laboratory data showed WBC 11.1 hemoglobin 14.9 and platelets 489 Sodium 139 potassium 3.6 chloride 100 bicarb is 34 BUN 15 and creatinine 0.6. Lowering of spine elevated. Lactic acid 1.1 and troponin x1 negative. 11/28/2022 Patient is currently lying in the bed. Awake alert and oriented x3. Requiring 3 L oxygen via nasal cannula. No complaints of chest pain. Still having shortness of breath and cough without any sputum production. No nausea vomiting abdominal pain or diarrhea. Patient is being current on IV steroids, DuoNebs and antibiotics changed to doxycycline as per pulmonary recommendations. Laboratory data showed WBC 12.6 hemoglobin 14.4 and platelets 485 bicarb is 32 BUN 13 and creatinine 0.53 and procalcitonin noted 0.03. Current medications reviewed. Objective - Vital Signs Vital signs: Vital Signs Temp 98.1 F 11/28/22 20:00 Pulse 80 11/28/22 22:31 Resp 20 11/28/22 20:00 BP 130/71 11/28/22 20:00 Pulse Ox 100 11/28/22 20:00 FiO2 Intake & Output 11/28/22 11/28/22 11/29/22 06:59 18:59 06:59 Weight 68.039 kg Other: Voiding Method Toilet Toilet Toilet # Voids 2 3 - Exam PHYSICAL EXAMINATION: Patient is lying in the bed comfortably, no acute distress, awake alert and oriented.. HEENT: Normocephalic. Neck is supple. Pupils reactive. Nostrils clear. Oral cavity is moist. Neck reveals no JVD, carotid bruits, or thyromegaly. CHEST EXAMINATION: Trachea is central. Symmetrical expansion. Bilateral diffuse wheezing and scattered rhonchi. CARDIAC: Normal S1, S2 with no gallops. No murmurs ABDOMEN: Soft. Bowel sounds present. Nontender. No organomegaly. No abdominal bruits. Extremities: reveal no edema. No clubbing or cyanosis Neurologically awake, alert, oriented x3 with well-coordinated movements. No focal deficits noted Skin: No rash or skin lesions. Psychiatric: Coperative. Nonsuicidal, Musculoskeletal: No joint swelling or deformity. Normal range of motion. - Labs CBC & Chem 7: 11/29/22 05:39 11/29/22 05:39 Labs: Abnormal Lab Results - Last 24 Hours (Table) 11/28/22 11/28/22 Range/Units 05:48 05:48 WBC 12.6 H (3.8-10.6) k/uL Plt Count 485 H (150-450) k/uL Neutrophils # 11.4 H (1.3-7.7) k/uL Lymphocytes # 0.9 L (1.0-4.8) k/uL Carbon Dioxide 32 H (22-30) mmol/L Glucose 138 H (74-99) mg/dL Microbiology - Last 24 Hours (Table) 11/27/22 12:09 Blood Culture - Preliminary Blood 11/27/22 12:09 Blood Culture - Preliminary Blood Assessment and Plan Assessment: Shortness of breath secondary to acute COPD exacerbation Left lower lobe pneumonia Chronic hypoxic respiratory failure on home oxygen at 2 L via nasal cannula as needed.. Hypertension Hyperlipidemia Osteoarthritis History of diverticulosis Chronic back pain Prior history of smoking DVT prophylaxis with heparin subcu Plan: Patient will be continued on oxygen supplementation. Continue with IV Solu- Medrol 60 mg every 6 hourly, DuoNebs and Symbicort. Continue with Doxy. Follow-up blood cultures and procalcitonin level-0.03. Continue with home blood pressure medications and pain management and follow-up closely. Pulmonary is on board. Time with Patient: Greater than 30
--- NOTE | 2022-11-30 01:39 | P.PN ---
Subjective Progress Note Date: 11/29/22 Patient is a 86-year-old female with known history of COPD on home oxygen, hypertension, hyperlipidemia, osteoarthritis, hearing disorder/deafness, history of diverticulosis, chronic back pain and prior history of smoking and CBD oil occasional use for arthritic pain presents to ER with complaints of worsening shortness of breath for the past 1 month. Patient was seen by her pulmonary physician in August 2022. Patient states that he is also having cough and yellow sputum production. Denies any fever or chills. No nausea vomiting or abdominal pain or diarrhea. Denies any complaints of chest pain. No leg swelling. Chest x-ray showed left lower lobe infiltrate superimposed on background COPD EKG showed sinus tachycardia Laboratory data showed WBC 11.1 hemoglobin 14.9 and platelets 489 Sodium 139 potassium 3.6 chloride 100 bicarb is 34 BUN 15 and creatinine 0.6. Lowering of spine elevated. Lactic acid 1.1 and troponin x1 negative. 11/28/2022 Patient is currently lying in the bed. Awake alert and oriented x3. Requiring 3 L oxygen via nasal cannula. No complaints of chest pain. Still having shortness of breath and cough without any sputum production. No nausea vomiting abdominal pain or diarrhea. Patient is being current on IV steroids, DuoNebs and antibiotics changed to doxycycline as per pulmonary recommendations. Laboratory data showed WBC 12.6 hemoglobin 14.4 and platelets 485 bicarb is 32 BUN 13 and creatinine 0.53 and procalcitonin noted 0.03. 11/29/2022 Patient is currently resting in bed. Awake alert and oriented x3. Patient still having cough without any sputum production. Complaints of shortness of breath and exertional dyspnea. Patient is requiring 3 L oxygen via nasal cannula. Otherwise no nausea vomiting or abdominal pain or diarrhea. No fever no chills. Blood pressure stable. Blood cultures showed no growth. Laboratory data showed WBC increased to 22.6 likely due to steroids, hemoglobin 13.4 and platelets 438 BUN 23 and creatinine 0.86 and blood sugar is 143. Pulmonary is on board. Anticipate discharge in the next 24 hours with more clinical improvement. Current medications reviewed. Objective - Vital Signs Vital signs: Vital Signs Temp 98.3 F 11/29/22 07:17 Pulse 84 11/29/22 15:17 Resp 18 11/29/22 08:00 BP 134/88 11/29/22 07:17 Pulse Ox 96 11/29/22 07:17 FiO2 Intake & Output 11/28/22 11/29/22 11/29/22 18:59 06:59 18:59 Other: Voiding Method Toilet Toilet Toilet # Voids 3 1 - Exam PHYSICAL EXAMINATION: Patient is lying in the bed comfortably, no acute distress, awake alert and oriented.. HEENT: Normocephalic. Neck is supple. Pupils reactive. Nostrils clear. Oral cavity is moist. Neck reveals no JVD, carotid bruits, or thyromegaly. CHEST EXAMINATION: Trachea is central. Symmetrical expansion. Bilateral exp wheezing and scattered rhonchi. CARDIAC: Normal S1, S2 with no gallops. No murmurs ABDOMEN: Soft. Bowel sounds present. Nontender. No organomegaly. No abdominal bruits. Extremities: reveal no edema. No clubbing or cyanosis Neurologically awake, alert, oriented x3 with well-coordinated movements. No focal deficits noted Skin: No rash or skin lesions. Psychiatric: Coperative. Nonsuicidal, Musculoskeletal: No joint swelling or deformity. Normal range of motion. - Labs CBC & Chem 7: 11/29/22 05:39 11/29/22 05:39 Labs: Abnormal Lab Results - Last 24 Hours (Table) 11/29/22 11/29/22 Range/Units 05:39 05:39 WBC 22.6 H (3.8-10.6) k/uL Neutrophils # 21.4 H (1.3-7.7) k/uL Lymphocytes # 0.7 L (1.0-4.8) k/uL Carbon Dioxide 33 H (22-30) mmol/L BUN 23 H (7-17) mg/dL Glucose 143 H (74-99) mg/dL Microbiology - Last 24 Hours (Table) 11/27/22 12:09 Blood Culture - Preliminary Blood 11/27/22 12:09 Blood Culture - Preliminary Blood Assessment and Plan Assessment: Shortness of breath secondary to acute COPD exacerbation Left lower lobe pneumonia Chronic hypoxic respiratory failure on home oxygen at 2 L via nasal cannula as needed.. Hypertension Hyperlipidemia Osteoarthritis History of diverticulosis Chronic back pain Prior history of smoking DVT prophylaxis with heparin subcu Plan: Patient will be continued on oxygen supplementation. Continue with IV Solu- Medrol 60 mg every 6 hourly, DuoNebs and Symbicort. Continue with Doxy. Follow-up blood cultures and procalcitonin level-0.03. Continue with home blood pressure medications and pain management and follow-up closely. Pulmonary is on board. Time with Patient: Greater than 30
[2022-11-30 07:34] VITALS: BP 143/71; TEMP 98.1
[2022-11-30 07:42] LABS: Basophils % (A) 0 %; Eosinophils # (A) 0.1 k/uL (0-0.7); Eosinophils % (A) 0 %; HGB 13.2 gm/dL (11.4-16.0); Lymphocytes # (A) 0.5 k/uL (1.0-4.8); Lymphocytes % (A) 2 %; MCH 29.7 pg (25.0-35.0); MCHC 32.2 g/dL (31.0-37.0); MCV 92.4 fL (80.0-100.0); Monocytes # (A) 0.5 k/uL (0-1.0); Monocytes % (A) 2 %; Neutrophils # (A) 21.1 k/uL (1.3-7.7); Neutrophils % (A) 95 %; Platelet Count 413 k/uL (150-450); RBC 4.43 m/uL (3.80-5.40); RDW 14.7 % (11.5-15.5); WBC 22.2 k/uL (3.8-10.6)
[2022-11-30 08:00] LABS: African American GFR (CKD) 87 (>60 ml/min/1.73 sqM); Anion Gap 6 mmol/L; Blood Urea Nitrogen 25 mg/dL (7-17); Calcium 9.2 mg/dL (8.4-10.2); Carbon Dioxide 32 mmol/L (22-30); Chloride 99 mmol/L (98-107); Glucose 127 mg/dL (74-99); Non-African American GFR(CKD) 76 (>60 ml/min/1.73 sqM); Potassium 4.3 mmol/L (3.5-5.1); Sodium 137 mmol/L (137-145)
[2022-11-30] MEDS: METOPROLOL SUCCINATE (ER) 25 MG TAB.ER.24H PO SCH (09:11)
[2022-11-30] MEDS: LOSARTAN 50 MG TAB PO SCH (09:11)
[2022-11-30] MEDS: DOXYCYCLINE 100 MG CAP PO SCH (09:12)
[2022-11-30] MEDS: BENZONATATE 100 MG CAP PO SCH (09:12)
[2022-11-30] MEDS: IPRATROPIUM-ALBUTEROL 3 ML NEB INHALATION SCH ×2 (09:24→12:17)
[2022-11-30] MEDS: SYMBICORT 80-4.5 MCG INHALER INHALATION SCH (09:25)
[2022-11-30 12:26] VITALS: PULSE 82
--- NOTE | 2022-11-30 14:08 | P.PN ---
Subjective Progress Note Date: 11/30/22 This is a very pleasant 87-year-old female patient with a known history of chronic obstructive pulmonary disease, oxygen dependent, hyperlipidemia, hypertension, former smoker, osteoarthritis, hard of hearing. She's been having ongoing issues with recurrent exacerbations of her COPD. She has been admitted here frequently for exacerbation. She did undergo bronchoscopy with BAL again on 09/03/2022 with findings of Lavern only. No evidence of malignancy. She is maintained on prednisone 10 mg daily along with Trelegy and DuoNeb inhalations. She presented here again yesterday to the emergency department with increasing shortness of breath, cough and congestion. Chest x-ray shows left lower lobe infiltrate/atelectasis superimposed on background COPD. No pleural effusion. No pneumothorax. White count 12.6. Hemoglobin 14.4. Sodium 138. Potassium 3.9. Bicarb 32. BUN 13. Creatinine 0.53. Procalcitonin was negative at 0.05. She had been initiated on DuoNeb inhalations, Symbicort, IV Solu-Medrol, antibiotics in the form of ceftriaxone and azithromycin. Tessalon Perles. Heparin for DVT prophylaxis. She is seen today in consultation on the regular medical floor. Currently sitting up in bed. Awake and alert in no acute distress. Maintaining O2 saturations up to 100% on 3 L/m per nasal cannula. Afebrile. Hemodynamically stable. The patient is seen today 11/29/2022 in follow-up on the regular medical floor. She is currently resting comfortably in bed. Awake and alert in no acute distress. She continues with a loose nonproductive cough. Still with some dyspnea on conversation. Dyspnea on exertion. She is maintaining O2 saturations in the 90s on 3 L/m per nasal cannula. She's been afebrile. Hemodynamically stable. Blood cultures reveal no growth to date. White count 22.6. Hemoglobin 13.4. Sodium 137. Potassium 4.1. Bicarb 33. BUN 23. Creatinine 0.86. Glucose 143. Pro-calcitonin was 0.03. She is continued on DuoNeb inhalations, Symbicort, IV Solu-Medrol. Antibiotics empirically in the form of doxycycline. Heparin for DVT prophylaxis. Tessalon perles. Cepacol lozenges. On today's evaluation of 12/01/2022, the patient is feeling better, less short of breath and bronchospastic compared to yesterday. She has Trelegy Ellipta home in addition to prednisone burst taper and a maintenance of prednisone to be maintain at 10 mg by mouth daily and albuterol about treatments [id number]. No fever. No chills. No altered mentation. No pleurisy or hemoptysis. Chest x-ray was consistent with COPD and the patient's ability to count is at 22 with a hemoglobin 13.2 and a platelet count of 413. BUN is at 25 with a creatinine of 0.7 and sodium levels of 137. Pro-calcitonin level is at 0.03. Objective - Vital Signs Vital signs: Vital Signs Temp 98.1 F 11/30/22 06:58 Pulse 77 11/30/22 09:37 Resp 16 11/30/22 06:58 BP 143/71 11/30/22 06:58 Pulse Ox 98 11/30/22 09:28 FiO2 Intake & Output 11/29/22 11/30/22 11/30/22 18:59 06:59 18:59 Intake Total 550 Output Total 3 Balance 547 Intake: Oral 550 Output: Stool 3 Other: Voiding Method Toilet # Voids 3 - Exam GENERAL EXAM: Alert, 87-year-old female, on 3 L nasal cannula, comfortable in no apparent distress. HEAD: Normocephalic. EYES: Normal reaction of pupils, equal size. NOSE: Clear with pink turbinates. THROAT: No erythema or exudates. NECK: No masses, no JVD. CHEST: No chest wall deformity. LUNGS: Equal air entry with bilateral wheeze, diminished. CVS: S1 and S2 normal with no audible murmur, regular rhythm. ABDOMEN: No hepatosplenomegaly, normal bowel sounds, no guarding or rigidity. SPINE: No scoliosis or deformity SKIN: No rashes CENTRAL NERVOUS SYSTEM: No focal deficits, tone is normal in all 4 extremities. EXTREMITIES: There is no peripheral edema. No clubbing, no cyanosis. Peripheral pulses are intact. - Labs CBC & Chem 7: 11/30/22 07:02 11/30/22 07:02 Labs: Abnormal Lab Results - Last 24 Hours (Table) 11/30/22 11/30/22 Range/Units 07:02 07:02 WBC 22.2 H (3.8-10.6) k/uL Neutrophils # 21.1 H (1.3-7.7) k/uL Lymphocytes # 0.5 L (1.0-4.8) k/uL Carbon Dioxide 32 H (22-30) mmol/L BUN 25 H (7-17) mg/dL Glucose 127 H (74-99) mg/dL Microbiology - Last 24 Hours (Table) 11/27/22 12:09 Blood Culture - Preliminary Blood 11/27/22 12:09 Blood Culture - Preliminary Blood Assessment and Plan Plan: Acute on chronic hypoxemic respiratory failure secondary to an acute exacerba tion of chronic obstructive pulmonary disease. Pro-calcitonin 0.03 Frequent exacerbations of COPD requiring frequent admissions Oxygen dependent, steroid dependent chronic obstructive pulmonary disease with history of multiple bronchoscopies Former smoker Hypertension Hyperlipidemia History of hearing disorder History of diverticular disease Schatzki's ring status post balloon dilatation in June 2022 Plan: Clinically improving and the patient be able to go home on a prednisone burst taper to be maintained on 10 mg of prednisone on outpatient basis Continue Trelegy Ellipta one inhalation a day Continue albuterol updrafts [id number] as needed Importance of oxygen compliancy has been discussed again with the patient The patient is interested in a second opinion at [facility] and this will be arranged for her to be done outpatient basis Titrate down the FiO2 as tolerated Increase her activity as tolerated We will continue to follow
--- NOTE | 2022-12-01 05:52 | P.DS ---
Providers Date of admission: 11/27/22 14:25 Expected date of discharge: 11/30/22 Attending physician: Shae Barbosa Consults: 11/28/22 00:45 Consult Physician Routine Consulting Provider: Da Gilbert Consult Reason/Comments: COPD Do you want consulting provider notified?: Yes, Notify in am Primary care physician: Da Gilbert Hospital Course: Final diagnosis Shortness of breath secondary to acute COPD exacerbation Left lower lobe pneumonia Chronic hypoxic respiratory failure on home oxygen at 2 L via nasal cannula as needed.. Hypertension Hyperlipidemia Osteoarthritis History of diverticulosis Chronic back pain Prior history of smoking DVT prophylaxis Discharge disposition Patient is being discharged in a stable condition with guarded prognosis to [facility]. Patient will follow-up with Dr. Gilbert in the outpatient setting upon discharge. Patient is to continue with oral prednisone taper along with oral doxycycline twice a day. Total time taken is greater than 35 minutes. Hospital course This is a 87-year-old female who was recently admitted with increasing shortness of breath and cough with COPD exacerbation along with concerns of left lower lobe pneumonia. Patient chronically wears oxygen outpatient and reports she follows with pulmonary maintained on daily steroids. Patient was given DuoNeb treatments along with IV steroids maintained on doxycycline. Patient reports to feeling improved and extremely anxious to go home. Patient has been cleared by pulmonary. Please refer to pulmonaryfurther HPI. Currently no reports of chest pain, worsening shortness of breath, or palpitations. Patient is afebrile. No reports of nausea or vomiting and patient is tolerating diet. Patient will be discharged home today. Physical exam: Gen: This is a 87-year-old female who is awake, alert and oriented 3, well- developed, well-nourished HEENT: Head is atraumatic, normocephalic. Pupils equal, round. Sclerae is anicteric. NECK: Supple. No JVD. No lymphadenopathy. No thyromegaly. LUNGS: Diminished breath sounds bilaterally with some scattered rhonchi. No intercostal retractions. HEART: S1, S2 are muffled ABDOMEN: Soft. Bowel sounds are present. No masses. No tenderness. EXTREMITIES: No pedal edema. No calf tenderness. NEUROLOGICAL: Patient is awake, alert and oriented x3. Cranial nerves 2 through 12 are grossly intact. Please refer to medication reconciliation sheet for a list of medications. The impression and plan of care has been dictated by Kay Angulo, Nurse Practitioner as directed. Dr. Gregory MD I have performed a history and examination and MDM of this patient, discussed the same with the dictator, and agree with the dictator's assessment and plan as written ,documented as a scribe. Based on total visit time, I have performed more than 50% of the visit. Patient Condition at Discharge: Fair Plan - Discharge Summary Discharge Rx Participant: No New Discharge Prescriptions: New Benzocaine/Menthol Lozeng [Cepacol lozenge] 1 each MUCOUS MEM Q4HR PRN lozenge PRN Reason: Sore Throat Doxycycline [Vibramycin] 100 mg PO BID 7 Days #14 cap predniSONE 10 mg PO DIRECTED #30 tab Continue Losartan Potassium 100 mg PO DAILY Fluticasone/Umeclidin/Vilanter [Trelegy Ellipta 100-62.5-25] 1 puff INHALATION RT-DAILY Metoprolol Succinate (ER) [Toprol XL] 25 mg PO DAILY Albuterol Inhaler [Ventolin Hfa Inhaler] 2 puff INHALATION RT-Q4H PRN #1 each PRN Reason: Shortness Of Breath Ipratropium-Albuterol Nebulize [Duoneb 0.5 mg-3 mg/3 ml Soln] 3 ml INHALATION RT-Q2H PRN each PRN Reason: Shortness Of Breath Or Wheezing predniSONE 10 mg PO DAILY #90 tab Benzonatate [Tessalon Perle] 200 mg PO TID Rosuvastatin [Crestor] 10 mg PO HS Albuterol Nebulized [Ventolin Nebulized] 2.5 mg INHALATION RT-QID Ipratropium-Albuterol Nebulize [Duoneb 0.5 mg-3 mg/3 ml Soln] 3 ml INHALATION RT-Q4H Acetaminophen Tab [Tylenol] 650 mg PO Q6HR PRN tab PRN Reason: Fever And/ Or Pain dilTIAZem HCL [Cardizem CD] 120 mg PO HS hydroCHLOROthiazide [Hydrodiuril] 25 mg PO DAILY #90 tab Discharge Medication List Losartan Potassium 100 mg PO DAILY 10/30/14 [History] Rosuvastatin [Crestor] 10 mg PO HS 10/20/21 [History] Albuterol Nebulized [Ventolin Nebulized] 2.5 mg INHALATION RT-QID 11/07/21 [History] Fluticasone/Umeclidin/Vilanter [Trelegy Ellipta 100-62.5-25] 1 puff INHALATION RT-DAILY 05/14/22 [History] Ipratropium-Albuterol Nebulize [Duoneb 0.5 mg-3 mg/3 ml Soln] 3 ml INHALATION RT-Q4H 05/14/22 [History] Metoprolol Succinate (ER) [Toprol XL] 25 mg PO DAILY 05/14/22 [History] Albuterol Inhaler [Ventolin Hfa Inhaler] 2 puff INHALATION RT-Q4H PRN #1 each 05/19/22 [Rx] Acetaminophen Tab [Tylenol] 650 mg PO Q6HR PRN tab 06/19/22 [Rx] Ipratropium-Albuterol Nebulize [Duoneb 0.5 mg-3 mg/3 ml Soln] 3 ml INHALATION RT-Q2H PRN each 07/27/22 [Rx] dilTIAZem HCL [Cardizem CD] 120 mg PO HS 09/26/22 [History] hydroCHLOROthiazide [Hydrodiuril] 25 mg PO DAILY #90 tab 09/30/22 [Rx] predniSONE 10 mg PO DAILY #90 tab 09/30/22 [Rx] Benzonatate [Tessalon Perle] 200 mg PO TID 11/27/22 [History] Benzocaine/Menthol Lozeng [Cepacol lozenge] 1 each MUCOUS MEM Q4HR PRN lozenge 11/30/22 [Rx] Doxycycline [Vibramycin] 100 mg PO BID 7 Days #14 cap 11/30/22 [Rx] predniSONE 10 mg PO DIRECTED #30 tab 11/30/22 [Rx] Follow up Appointment(s)/Referral(s): Da Gilbert MD [Primary Care Provider] - 12/17/22 10:45 am Activity/Diet/Wound Care/Special Instructions: Activity Limited until follow-up Follow-up primary care provider on discharge Follow-up pulmonary outpatient Continue taking medications as prescribed Continue with prednisone taper prior to resuming daily dose of 10 mg Discharge Disposition: HOME SELF-CARE
== END 2022-11-30 14:21 | disposition home or self-care (01) | DRG 190 ==
LOC: EC 11:41 → 4SSUR 14:25
PROVIDERS: ADMIT Internal Medicine; ATTEND Internal Medicine
DX: J44.1 Chronic obstructive pulmonary disease with (acute) exacerbation (principal); J18.9 Pneumonia, unspecified organism; J96.21 Acute and chronic respiratory failure with hypoxia; K71.8 Toxic liver disease with other disorders of liver; J44.0 Chronic obstructive pulmonary disease with (acute) lower respiratory infection; I10 Essential (primary) hypertension; E78.5 Hyperlipidemia, unspecified; H91.90 Unspecified hearing loss, unspecified ear; K44.9 Diaphragmatic hernia without obstruction or gangrene; M19.90 Unspecified osteoarthritis, unspecified site; G89.29 Other chronic pain; M54.9 Dorsalgia, unspecified; T38.0X5A Adverse effect of glucocorticoids and synthetic analogues, initial encounter; Z96.651 Presence of right artificial knee joint; Z99.81 Dependence on supplemental oxygen; Z80.0 Family history of malignant neoplasm of digestive organs; Z80.1 Family history of malignant neoplasm of trachea, bronchus and lung; Z87.891 Personal history of nicotine dependence; I25.2 Old myocardial infarction; Z87.11 Personal history of peptic ulcer disease; Z87.19 Personal history of other diseases of the digestive system; Z79.52 Long term (current) use of systemic steroids; Z79.51 Long term (current) use of inhaled steroids; Z79.899 Other long term (current) drug therapy; Z82.5 Family history of asthma and other chronic lower respiratory diseases
CPT/HCPCS: 36415; 71046; 80048; 80053; 82803; 83605; 84145; 84484; 85025; 85610; 85730; 87040; 93005; 94640; 94760; 96365; 96366; 96375; 99291

== ENCOUNTER 2023-01-09 12:45 | Observation (INO) | payer MEDICARE, BC ==
[2023-01-09] MEDS ORDERED: methylPREDNISolone SOD SUCCI 125 MG/2 ML VIAL IV STA (12:57)
[2023-01-09] MEDS ORDERED: SODIUM CHLORIDE 0.9% 1,000 ML IV STA (12:57)
[2023-01-09] MEDS ORDERED: IPRATROPIUM-ALBUTEROL 3 ML NEB INHALATION STA ×2 (12:57→12:58)
--- NOTE | 2023-01-09 13:14 | ED ---
General Adult HPI - General Chief complaint: Shortness of Breath Stated complaint: SOB Time Seen by Provider: 01/09/23 12:49 Source: patient, RN notes reviewed, old records reviewed Mode of arrival: wheelchair Limitations: physical limitation - History of Present Illness Initial comments: Patient is an 87-year-old female with past medical history remarkable for COPD, on home oxygen as needed 2 L, as well as hypertension who presents emergency Department complaining of worsening shortness of breath for the last few days. States she has been taking her treatments at home with minimal improvement. Presents for further evaluation. Presented last month for similar symptoms and was diagnosed with pneumonia and admitted to the hospital for COPD and pneumonia at that time. Is concerned this may be occurring again. Denies any fevers. Denies any sick contacts. Denies abdominal pain, nausea, vomiting, constipation, diarrhea. Denies any chest pain. Endorses increase shortness of breath and wheezing. She is concerned for possible upper respiratory illness as well as COPD flare. Presents for further evaluation at this time. States she no longer smokes. - Related Data Home Medications Medication Instructions Recorded Confirmed Losartan Potassium 100 mg PO DAILY 10/30/14 11/27/22 Rosuvastatin [Crestor] 10 mg PO HS 10/20/21 11/27/22 Albuterol Nebulized [Ventolin 2.5 mg INHALATION RT-QID 11/07/21 11/27/22 Nebulized] Fluticasone/Umeclidin/Vilanter 1 puff INHALATION RT-DAILY 05/14/22 11/27/22 [Trelegy Ellipta 100-62.5-25] Ipratropium-Albuterol Nebulize 3 ml INHALATION RT-Q4H 05/14/22 11/27/22 [Duoneb 0.5 mg-3 mg/3 ml Soln] Metoprolol Succinate (ER) [Toprol 25 mg PO DAILY 05/14/22 11/27/22 XL] dilTIAZem HCL [Cardizem CD] 120 mg PO HS 09/26/22 11/27/22 Benzonatate [Tessalon Perle] 200 mg PO TID 11/27/22 11/27/22 Previous Rx's Medication Instructions Recorded Albuterol Inhaler [Ventolin Hfa 2 puff INHALATION RT-Q4H PRN #1 05/19/22 Inhaler] each Acetaminophen Tab [Tylenol] 650 mg PO Q6HR PRN tab 06/19/22 Ipratropium-Albuterol Nebulize 3 ml INHALATION RT-Q2H PRN each 07/27/22 [Duoneb 0.5 mg-3 mg/3 ml Soln] hydroCHLOROthiazide [Hydrodiuril] 25 mg PO DAILY #90 tab 09/30/22 predniSONE 10 mg PO DAILY #90 tab 09/30/22 Benzocaine/Menthol Lozeng [Cepacol 1 each MUCOUS MEM Q4HR PRN lozenge 11/30/22 lozenge] Doxycycline [Vibramycin] 100 mg PO BID 7 Days #14 cap 11/30/22 predniSONE 10 mg PO DIRECTED #30 tab 11/30/22 Allergies Allergy/AdvReac Type Severity Reaction Status Date / Time hydrocodone bitartrate AdvReac states Verified 01/09/23 12:49 [From Vicodin] "doesn't make me feel good" prednisone AdvReac Hallucinati Verified 01/09/23 12:49 ons Review of Systems ROS Statement: Those systems with pertinent positive or pertinent negative responses have been documented in the HPI. Review of Systems: CONST: Denies fever EYES: Denies blurry vision ENT: Denies nasal congestion C/V: Denies Chest pain RESP: Endorses shortness of breath, wheezing GI: Denies abdominal pain : Denies dysuria SKIN: Denies rash. MSK: Denies joint pain. NEURO: Denies headache ROS Other: All systems not noted in ROS Statement are negative. 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 Last Myocardial Infarction Date:: 40 years ago History of Any Multi-Drug Resistant Organisms: None Reported Past Surgical History: Cholecystectomy, Hysterectomy, Orthopedic Surgery Additional Past Surgical History / Comment(s): KNEE arthroscopy, COLONOSCOPY- LARGE POLYP REMOVED, EGD, cataracts, Right TKA (10/21/21) Past Anesthesia/Blood Transfusion Reactions: No Reported Reaction Additional Past Anesthesia/Blood Transfusion Reaction / Comment(s): No hx blood transfusion. Past Psychological History: No Psychological Hx Reported Smoking Status: Former smoker Past Alcohol Use History: None Reported Past Drug Use History: None Reported - Past Family History Sister(s) Family Medical History: Cancer Additional Family Medical History / Comment(s): #1 sister colon cancer, # 2 sist er lung cancer. Father Family Medical History: Cancer Additional Family Medical History / Comment(s): Prostate cancer. Mother Family Medical History: Asthma Additional Family Medical History / Comment(s): Heart problems. General Exam - General Exam Comments Initial Comments: General: Appears in no acute distress. HEAD: Normal with no signs of head trauma. EYES: PERRLA, EOMI, conjunctiva normal, no discharge. ENT: Hearing grossly intact, normal oropharynx. RESPIRATORY: Bilateral end expiratory wheezing. No rhonchi. Mild hypoxia on room air to 92-94%. Mild increased work of breathing as well. C/V: Tachycardic with regular rhythm. S1 and S2 auscultated, no edema, peripheral pulses 2+ and intact throughout ABD: Abd is soft, nontender, nondistended EXT: Normal range of motion, no obvious deformity SKIN: No rashes or lesions observed on exposed skin. NEURO: Alert and oriented 4. Limitations: physical limitation Course Vital Signs 01/09/23 01/09/23 01/09/23 12:47 14:16 14:26 Temperature 99.6 F Pulse Rate 106 H 94 91 Respiratory 24 Rate Blood Pressure 114/62 O2 Sat by Pulse 92 L Oximetry 01/09/23 01/09/23 01/09/23 15:20 15:30 15:45 Temperature Pulse Rate 96 103 H Respiratory Rate Blood Pressure O2 Sat by Pulse 81 L Oximetry 01/09/23 17:28 Temperature Pulse Rate 105 H Respiratory Rate Blood Pressure 136/76 O2 Sat by Pulse 96 Oximetry Medical Decision Making - Medical Decision Making Was pt. sent in by a medical professional or institution (, PA, TIMBER ESTIMATOR, urgent care, hospital, or senior care...) When possible be specific @ -No Did you speak to anyone other than the patient for history (EMS, parent, family, police, friend...)? What history was obtained from this source @ -No Did you review nursing and triage notes (agree or disagree)? Why? @ -I reviewed and agree with nursing and triage notes Were old charts reviewed (outside hosp., previous admission, EMS record, old EKG, old radiological studies, urgent care reports/EKG's, senior care records)? Report findings @ -Reviewed charts from November 2022 which was her previous admission Differential Diagnosis (chest pain, altered mental status, abdominal pain women, abdominal pain men, vaginal bleeding, weakness, fever, dyspnea, syncope, headache, dizziness, GI bleed, back pain, seizure, CVA, palpatations, mental health, musculoskeletal)? @ -Differential Dyspnea: Coronary syndrome, arrhythmia, tamponade, asthma, COPD, pulmonary embolism, pneumonia, pneumothorax, pulmonary effusion, anaphylaxis, diabetic ketoacidosis, flailed chest, pulmonary contusion, diaphragmatic rupture, anemia, neuromuscular, this is not meant to be an all-inclusive list. EKG interpreted by me (3pts min.). @ -As above X-rays interpreted by me (1pt min.). @ -Chest x-ray reveals possible pneumonia as there appears to be some hazy infiltrates in bilateral lungs. CT interpreted by me (1pt min.). @ -None done U/S interpreted by me (1pt. min.). @ -None done What testing was considered but not performed or refused? (CT, X-rays, U/S, labs)? Why? @ -None What meds were considered but not given or refused? Why? @ -None Did you discuss the management of the patient with other professionals (professionals i.e. , PA, TIMBER ESTIMATOR, lab, RT, psych nurse, social work manager, school cafeteria head cook, teacher, human resource officer, family preservation caseworker)? Give summary @ -Discussed with Dr. Gutierrez [facility] who accepted the patient. Was smoking cessation discussed for >3mins.? @ -No Was critical care preformed (if so, how long)? @ -No Were there social determinants of health that impacted care today? How? (Ho melessness, low income, unemployed, alcoholism, drug addiction, transportation, low edu. Level, literacy, decrease access to med. care, half-way, rehab)? @ -No Was there de-escalation of care discussed even if they declined (Discuss DNR or withdrawal of care, Hospice)? DNR status @ -No What co-morbidities impacted this encounter? (DM, HTN, Smoking, COPD, CAD, Cancer, CVA, ARF, Chemo, Hep., AIDS, mental health diagnosis, sleep apnea, morbid obesity)? @ -COPD Was patient admitted / discharged? Hospital course, mention meds given and route, prescriptions, significant lab abnormalities, going to OR and other pertinent info. @ -Based on the patient's presentation and physical exam, I'm concerned for what appears to be COPD exacerbation but cannot rule out upper respiratory infection at this time. She will be given multiple breathing treatments as well as a dose of steroids. Also receive a 1 L fluid bolus. We will obtain basic labs, chest x-ray, screening EKG and viral swabs. Patient was in agreement this plan. Vital signs are within acceptable limits at this time with exception to borderline tachycardia as well as very mild hypoxia likely secondary to her COPD exacerbation EKG showed no signs of ischemia.X-ray reveals possible pneumonia. Patient's labs are remarkable for mild leukocytosis of 11. Patient is hypokalemic at 3.3 which was replenished. Viral swabs are negative. Following multiple breathing treatments, patient on ambulation becomes hypoxic down to 81%. This is off oxygen. Patient is only on oxygen as needed. The rest it does improve. I would like to admit her for COPD exacerbation, acute on chronic hypoxic respiratory failure, as well as start her on antibiotics for possible pneumonia. She was in agreement this plan. Pulmonology was consulted. I spoke with the admitting team, [facility] Dr. Gutierrez who accepted the patient. Patient admitted in stable condition. Undiagnosed new problem with uncertain prognosis? @ -No Drug Therapy requiring intensive monitoring for toxicity (Heparin, Nitro, Insulin, Cardizem)? @ -No Were any procedures done? @ -No Diagnosis/symptom? @ -COPD, hypoxic respiratory failure Acute, or Chronic, or Acute on Chronic? @ -Acute on chronic Uncomplicated (without systemic symptoms) or Complicated (systemic symptoms)? @ -Complicated Side effects of treatment? @ -none Exacerbation, Progression, or Severe Exacerbation] @ -Exacerbation Poses a threat to life or bodily function? @ -Yes Diagnosis/symptom? @ -Pneumonia Acute, or Chronic, or Acute on Chronic? @ -Acute Uncomplicated (without systemic symptoms) or Complicated (systemic symptoms)? @ -Complicated Side effects of treatment? @ -none Exacerbation, Progression, or Severe Exacerbation] @ -no Poses a threat to life or bodily function? @ -Yes - Lab Data Result diagrams: 01/09/23 13:07 01/09/23 13:07 Lab Results 01/09/23 01/09/23 01/09/23 Range/Units 13:07 13:07 13:07 WBC 11.3 H (3.8-10.6) k/uL RBC 4.22 (3.80-5.40) m/uL Hgb 13.1 (11.4-16.0) gm/dL Hct 39.1 (34.0-46.0) % MCV 92.5 (80.0-100.0) fL MCH 31.0 (25.0-35.0) pg MCHC 33.5 (31.0-37.0) g/dL RDW 14.5 (11.5-15.5) % Plt Count 367 (150-450) k/uL MPV 8.0 Neutrophils % 81 % Lymphocytes % 10 % Monocytes % 5 % Eosinophils % 3 % Basophils % 1 % Neutrophils # 9.2 H (1.3-7.7) k/uL Lymphocytes # 1.1 (1.0-4.8) k/uL Monocytes # 0.6 (0-1.0) k/uL Eosinophils # 0.3 (0-0.7) k/uL Basophils # 0.1 (0-0.2) k/uL Sodium 137 (137-145) mmol/L Potassium 3.3 L (3.5-5.1) mmol/L Chloride 98 (98-107) mmol/L Carbon Dioxide 35 H (22-30) mmol/L Anion Gap 4 mmol/L BUN 15 (7-17) mg/dL Creatinine 0.79 (0.52-1.04) mg/dL Est GFR (CKD-EPI)AfAm 80 (>60 ml/min/1.73 sqM) Est GFR (CKD-EPI)NonAf 69 (>60 ml/min/1.73 sqM) Glucose 108 H (74-99) mg/dL Calcium 8.9 (8.4-10.2) mg/dL Magnesium 1.9 (1.6-2.3) mg/dL Total Bilirubin 0.6 (0.2-1.3) mg/dL AST 23 (14-36) U/L ALT 19 (4-34) U/L Alkaline Phosphatase 62 (38-126) U/L Total Protein 5.9 L (6.3-8.2) g/dL Albumin 3.4 L (3.5-5.0) g/dL Influenza Type A (PCR) Not Detected (Not Detectd) Influenza Type B (PCR) Not Detected (Not Detectd) RSV (PCR) Not Detected (Not Detectd) SARS-CoV-2 (PCR) Not Detected (Not Detectd) - EKG Data -: EKG Interpreted by Me EKG Comments: 12-lead Electrocardiogram Interpretation Note EKG was reviewed and interpreted by myself. 12-lead ECG performed at 1301 is interpreted by me as revealing sinus tachycardia with supraventricular premature complexes at a rate of 109 beats per minute. [place] is normal. NC interval is 196 ms, QRS duration is 85 ms, QTc is 404 ms.. There were no ST or T wave abnormalities to suggest myocardial ischemia or injury. R wave progression acros s the precordium was satisfactory. By my interpretation this EKG is non- diagnostic for acute ischemia. Disposition Clinical Impression: COPD (chronic obstructive pulmonary disease), Acute respiratory failure with hypoxia, Pneumonia Disposition: ADMITTED IP TO THIS HOSP Condition: Stable Time of Disposition: 15:45
[2023-01-09 13:33] LABS: Basophils # (A) 0.1 k/uL (0-0.2); Basophils % (A) 1 %; Eosinophils # (A) 0.3 k/uL (0-0.7); Eosinophils % (A) 3 %; HCT 39.1 % (34.0-46.0); HGB 13.1 gm/dL (11.4-16.0); Lymphocytes # (A) 1.1 k/uL (1.0-4.8); Lymphocytes % (A) 10 %; MCHC 33.5 g/dL (31.0-37.0); MCV 92.5 fL (80.0-100.0); Monocytes # (A) 0.6 k/uL (0-1.0); Monocytes % (A) 5 %; Neutrophils # (A) 9.2 k/uL (1.3-7.7); Neutrophils % (A) 81 %; Platelet Count 367 k/uL (150-450); RBC 4.22 m/uL (3.80-5.40); RDW 14.5 % (11.5-15.5); WBC 11.3 k/uL (3.8-10.6)
[2023-01-09 13:44] LABS: ALT 19 U/L (4-34); AST 23 U/L (14-36); African American GFR (CKD) 80 (>60 ml/min/1.73 sqM); Albumin 3.4 g/dL (3.5-5.0); Alkaline Phosphatase 62 U/L (38-126); Anion Gap 4 mmol/L; Blood Urea Nitrogen 15 mg/dL (7-17); Calcium 8.9 mg/dL (8.4-10.2); Carbon Dioxide 35 mmol/L (22-30); Chloride 98 mmol/L (98-107); Glucose 108 mg/dL (74-99); Magnesium 1.9 mg/dL (1.6-2.3); Non-African American GFR(CKD) 69 (>60 ml/min/1.73 sqM); Potassium 3.3 mmol/L (3.5-5.1); Sodium 137 mmol/L (137-145); Total Bilirubin 0.6 mg/dL (0.2-1.3); Total Protein 5.9 g/dL (6.3-8.2)
--- NOTE | 2023-01-09 14:55 | XR ---
EXAMINATION TYPE: XR chest 2V DATE OF EXAM: 01/09/2023 2:49 PM COMPARISON: Chest radiographs from 11/27/2022 TECHNIQUE: XR chest 2V Frontal and lateral views of the chest. CLINICAL INDICATION:Female, 87 years old with history of difficulty breathing; FINDINGS: Lungs/Pleura: No pneumothorax or pleural effusion. Bibasilar patchy airspace opacities. Pulmonary vascularity: Unremarkable. Heart/mediastinum: Cardiomediastinal silhouette is unremarkable. Atherosclerotic calcifications are seen in the aorta. Musculoskeletal: No acute osseous pathology. Multilevel degenerative changes of the thoracic spine. IMPRESSION: Bibasilar patchy airspace opacities concerning for pneumonia.
[2023-01-09] MEDS ORDERED: POTASSIUM CHLORIDE ER 20 MEQ TAB.ER PO STA (15:32)
[2023-01-09] MEDS ORDERED: AZITHROMYCIN 500 MG in SODIUM CHLORIDE 0.9% 250 ML IVPB STA (15:52)
[2023-01-09] MEDS ORDERED: NALOXONE 0.4 MG/ML 1 ML VIAL IV PRN (16:28)
[2023-01-09] MEDS ORDERED: RX INFO: IV CONTRAST WAS GIVEN 1 EACH MISC MISCELLANE PRN (18:33)
--- NOTE | 2023-01-09 18:36 | P.HPIM ---
History of Present Illness H&P Date: 01/09/23 Chief Complaint: dyspnea 87-year-old woman with medical history of asthma/COPD on home oxygen, hypertension, hyperlipidemia, osteoarthritis presented to the ER with worsening shortness of breath. Patient says that at home she noticed that she started to have increasing dyspnea on exertion as well as cough with sputum production. Sputum was yellow, and is usually white when she is able to produce sputum. She's also noticed some fevers, chills at home. She has not noticed an onset ground her. She has also felt stressed recently due to personal issues which she thinks may be contributing to her presentation. She denies nausea, vomiting, chest pain, palpitations, syncope, presyncope, abdominal pain, constipation, diarrhea, dysuria, dyschezia, numbness/weakness of extremities. In the emergency room, patient was afebrile, 128/64, heart rate 110, 95% on 2 L nasal pain. CBC shows leukocytosis to 11.3, otherwise unremarkable basic metabolic panel shows potassium of 3.3, CO2 of 35. Liver function tests showed total protein of 5.9, albumin 3.4. Influenza A, B Bev, Covid were negative. Chest x-ray shows normal-sized heart, hyperinflation with flattening of the diaphragms, bilateral opacities in the lower lobes concerning for pneumonia versus edema. Case was discussed with emergency room provider decision was made to admit the patient to the hospital for further evaluation. All Systems reviewed and pertinent positives and negatives noted in HPI, all other symptoms are negative Gen: in no apparent distress, resting comfortably in bed Eyes: PERRL, no scleral injection or icterus HENT: normocephalic, atraumatic, good hearing acuity, moist mucous membranes Neck: no tracheal deviation, full range of motion Resp: good air exchange, breathing comfortably with no accessory muscle use, no tactile fremitus, crackles in the mid chest, no wheezing CVS: good distal perfusion x 4, trace pitting edema GI: soft, NTTP, ND, no hepatosplenomegaly : no suprapubic tenderness, no CVAT, miguel catheter not present MSK: no clubbing, no cyanosis, no noted contractures of extremities Skin: no noted rashes, petechiae; temperature of skin is appropriate Neuro: moving all extremities without signs of weakness, CN II-XII intact Psych: cooperative, euthymic mood, insight and judgment intact Labs and imaging as above Assessment: Asthma/COPD exacerbation Pulmonary opacities, concerning for pneumonia, predominantly reticular in nature Hypertension Hyperlipidemia Osteoarthritis Plan: Vital signs reviewed and noted in the HPI Lab work reviewed and noted in the HPI CXR are personally interpreted and noted in the HPI Case was discussed with the Emergency Room provider and decision was made to admit the patient for asthma/COPD exacerbation Start ceftriaxone, azithromycin Duo nebs every 4 hours Solu-Medrol 40 mg every [address] of the chest Pulmonology consult Patient is no code Past Medical History Past Medical History: Asthma, COPD, Eye Disorder, Hearing Disorder / Deafness, Hyperlipidemia, Hypertension, Liver Disease, Osteoarthritis (OA), Pneumonia Additional Past Medical History / Comment(s): Hx stomach ulcer, cysts on liver., urinary leakage., small hiatal hernia, diverticulosis, tinnitus , Pneumonia 2020., Oxygen @ 2 L PRN., environmental allergies, back pain., 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 Last Myocardial Infarction Date:: 40 years ago History of Any Multi-Drug Resistant Organisms: None Reported Past Surgical History: Cholecystectomy, Hysterectomy, Orthopedic Surgery Additional Past Surgical History / Comment(s): KNEE arthroscopy, COLONOSCOPY- LARGE POLYP REMOVED, EGD, cataracts, Right TKA (10/21/21) Past Anesthesia/Blood Transfusion Reactions: No Reported Reaction Additional Past Anesthesia/Blood Transfusion Reaction / Comment(s): No hx blood transfusion. Smoking Status: Former smoker - Past Family History Sister(s) Family Medical History: Cancer Additional Family Medical History / Comment(s): #1 sister colon cancer, # 2 sister lung cancer. Father Family Medical History: Cancer Additional Family Medical History / Comment(s): Prostate cancer. Mother Family Medical History: Asthma Additional Family Medical History / Comment(s): Heart problems. Medications and Allergies Home Medications Medication Instructions Recorded Confirmed Type Losartan Potassium 100 mg PO DAILY 10/30/14 11/27/22 History Rosuvastatin [Crestor] 10 mg PO HS 10/20/21 11/27/22 History Albuterol Nebulized [Ventolin 2.5 mg INHALATION RT-QID 11/07/21 11/27/22 History Nebulized] Fluticasone/Umeclidin/Vilanter 1 puff INHALATION RT-DAILY 05/14/22 11/27/22 History [Trelegy Ellipta 100-62.5-25] Ipratropium-Albuterol Nebulize 3 ml INHALATION RT-Q4H 05/14/22 11/27/22 History [Duoneb 0.5 mg-3 mg/3 ml Soln] Metoprolol Succinate (ER) [Toprol 25 mg PO DAILY 05/14/22 11/27/22 History XL] Albuterol Inhaler [Ventolin Hfa 2 puff INHALATION RT-Q4H PRN #1 05/19/22 11/27/22 Rx Inhaler] each Acetaminophen Tab [Tylenol] 650 mg PO Q6HR PRN tab 06/19/22 11/27/22 Rx Ipratropium-Albuterol Nebulize 3 ml INHALATION RT-Q2H PRN each 07/27/22 11/27/22 Rx [Duoneb 0.5 mg-3 mg/3 ml Soln] dilTIAZem HCL [Cardizem CD] 120 mg PO HS 09/26/22 11/27/22 History hydroCHLOROthiazide [Hydrodiuril] 25 mg PO DAILY #90 tab 09/30/22 11/27/22 Rx predniSONE 10 mg PO DAILY #90 tab 09/30/22 11/27/22 Rx Benzonatate [Tessalon Perle] 200 mg PO TID 11/27/22 11/27/22 History Benzocaine/Menthol Lozeng [Cepacol 1 each MUCOUS MEM Q4HR PRN lozenge 11/30/22 Rx lozenge] Doxycycline [Vibramycin] 100 mg PO BID 7 Days #14 cap 11/30/22 Rx predniSONE 10 mg PO DIRECTED #30 tab 11/30/22 Rx Allergies Allergy/AdvReac Type Severity Reaction Status Date / Time hydrocodone bitartrate AdvReac states Verified 01/09/23 12:49 [From Vicodin] "doesn't make me feel good" prednisone AdvReac Hallucinati Verified 01/09/23 12:49 ons Physical Exam Osteopathic Statement: *. No significant issues noted on an osteopathic structural exam other than those noted in the History and Physical/Consult. Vitals: Vital Signs Temp Pulse Pulse Resp BP BP Pulse Ox 01/09/23 18:13 98.5 F 110 H 20 128/64 95 07/29/23 17:28 105 H 136/76 96 01/09/23 15:45 81 L 01/09/23 15:30 103 H 01/09/23 15:20 96 01/09/23 14:26 91 01/09/23 14:16 94 01/09/23 12:47 99.6 F 106 H 24 114/62 92 L Intake and Output 01/09/23 01/09/23 01/09/23 06:59 14:59 22:59 Other: Weight 72.575 kg 72.575 kg Results CBC & Chem 7: 01/09/23 13:07 01/09/23 13:07 Labs: Abnormal Lab Results - Last 24 Hours (Table) 01/09/23 01/09/23 Range/Units 13:07 13:07 WBC 11.3 H (3.8-10.6) k/uL Neutrophils # 9.2 H (1.3-7.7) k/uL Potassium 3.3 L (3.5-5.1) mmol/L Carbon Dioxide 35 H (22-30) mmol/L Glucose 108 H (74-99) mg/dL Total Protein 5.9 L (6.3-8.2) g/dL Albumin 3.4 L (3.5-5.0) g/dL
[2023-01-09] MEDS ORDERED: IPRATROPIUM-ALBUTEROL 3 ML NEB INHALATION SCH (20:00)
[2023-01-09] MEDS ORDERED: IPRATROPIUM-ALBUTEROL 3 ML NEB INHALATION PRN (20:04)
[2023-01-09] MEDS: HEPARIN SODIUM,PORCINE/PF 5,000 UNIT/0.5 ML SYRINGE SQ SCH (22:47)
[2023-01-09] MEDS: methylPREDNISolone SOD SUCCI 40 MG/ML 1 ML VIAL IV SCH (22:47)
[2023-01-10] MEDS: IPRATROPIUM-ALBUTEROL 3 ML NEB INHALATION SCH ×4 (07:55→21:37)
[2023-01-10 09:38] LABS: BUN/Creat Ratio 23.83 Ratio (12.00-20.00); Blood Urea Nitrogen 14.3 mg/dL (9.0-27.0); Calcium 9.2 mg/dL (8.7-10.3); Carbon Dioxide 25.8 mmol/L (21.6-31.8); Chloride 103 mmol/L (96-109); Glucose 153 mg/dL (70-110); Potassium 3.9 mmol/L (3.5-5.5); Sodium 140 mmol/L (135-145)
[2023-01-10 09:58] LABS: Basophils # (A) 0.03 X 10*3/uL (0.00-0.10); Basophils % (A) 0.2 %; Eosinophils # (A) 0 X 10*3/uL (0.04-0.35); Eosinophils % (A) 0 %; HGB 12.1 d/dL (12.0-15.0); Lymphocytes # (A) 0.95 X 10*3/uL (0.90-5.00); Lymphocytes % (A) 7.5 %; MCH 30.4 pg (27.0-32.0); MCHC 31.8 d/dL (32.0-37.0); MCV 95.5 FL (80.0-97.0); Mean Platelet Volume 11.1 FL (9.5-12.2); Monocytes # (A) 0.23 X 10*3/uL (0.20-1.00); Monocytes % (A) 1.8 %; NRBC Per 100 WBC 0 X 10*3/uL (0.00-0.01); Neutrophils % (A) 89.6 %; Platelet Count 410 X 10*3/uL (140-440); RBC 3.98 X 10*6/uL (4.10-5.20); RDW 14.4 % (11.5-14.5); WBC 12.73 X 10*3/uL (4.50-10.00)
[2023-01-10] MEDS: methylPREDNISolone SOD SUCCI 40 MG/ML 1 ML VIAL IV SCH ×2 (10:15→21:14)
[2023-01-10] MEDS: HEPARIN SODIUM,PORCINE/PF 5,000 UNIT/0.5 ML SYRINGE SQ SCH ×2 (10:16→21:16)
[2023-01-10] MEDS: ACETAMINOPHEN TAB 325 MG TAB PO PRN (10:23)
--- NOTE | 2023-01-10 11:54 | P.CNPUL ---
History of Present Illness Consult date: 01/10/23 Requesting physician: Loretta Barreto Reason for consult: dyspnea, COPD, abnormal CXR/CT Chief complaint: Shortness of breath, cough, congestion History of present illness: This is a very pleasant 87-year-old female patient with a known history of chronic obstructive pulmonary disease, oxygen dependent, hyperlipidemia, hypertension, former smoker, osteoarthritis, hard of hearing. She's been having ongoing issues with recurrent exacerbations of her COPD. She has been admitted here frequently for exacerbation. She did undergo bronchoscopy with BAL again on 09/03/2022 with findings of Lavern only. No evidence of malignancy. She is maintained on prednisone 10 mg daily along with Trelegy and DuoNeb inhalations. Her last discharge for COPD exacerbation was 11/30/2022. She presented here again yesterday to the emergency department with increasing shortness of breath, cough and congestion. Chest x-rays revealing by basilar patchy airspace opacities concerning for pneumonia. White count 12.7. Hemoglobin 12.1. Platelet count 410. Sodium 140. Potassium 3.9. Bicarb 26. BUN 14. Creatinine 0.6. Glucose 153. Influenza screen negative. RSV screen negative. COVID-19 screen negative. She's been initiated on DuoNeb inhalations, Symbicort, Solu-Medrol. Antibiotics in the form of ceftriaxone and azithromycin. Heparin for DVT prophylaxis. She is seen today in consultation on the regular medical floor. She is resting comfortably in bed. Awake and alert in no acute distress. She has a loose nonproductive cough. She is maintaining O2 saturations in the 90s on 2 L/m per nasal cannula. She is declining a computed tomography scan of the chest as recommended by the primary care service. Review of Systems REVIEW OF SYSTEMS: CONSTITUTIONAL: Denies any recent significant weight loss or weight gain. EYES: Denies change in vision. EARS, NOSE, MOUTH, THROAT: Denies headaches, denies sore throat. CARDIOVASCULAR: Denies chest pain, palpitations or syncopal episodes. RESPIRATORY: Positive for shortness of breath, cough, congestion no hemoptysis. GASTROINTESTINAL: Denies change in appetite, denies abdominal pain GENITOURINARY: Denies hematuria, denies infections. MUSKULOSKELETAL: Denies pain, denies swelling. INTEGUMENTARY: Denies rash, denies eczema. NEUROLOGICAL: Denies recent memory loss, no recent seizure activity. PSYCHIATRIC: Denies anxiety, denies depression. HEMATOLOGIC/LYMPHATIC: Denies anemia, denies enlarged lymph nodes. 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 Last Myocardial Infarction Date:: 40 years ago History of Any Multi-Drug Resistant Organisms: None Reported Past Surgical History: Cholecystectomy, Hysterectomy, Orthopedic Surgery Additional Past Surgical History / Comment(s): KNEE arthroscopy, COLONOSCOPY- LARGE POLYP REMOVED, EGD, cataracts, Right TKA (10/21/21) Past Anesthesia/Blood Transfusion Reactions: No Reported Reaction Additional Past Anesthesia/Blood Transfusion Reaction / Comment(s): No hx blood transfusion. Smoking Status: Former smoker - Past Family History Sister(s) Family Medical History: Cancer Additional Family Medical History / Comment(s): #1 sister colon cancer, # 2 sister lung cancer. Father Family Medical History: Cancer Additional Family Medical History / Comment(s): Prostate cancer. Mother Family Medical History: Asthma Additional Family Medical History / Comment(s): Heart problems. Son(s) Additional Family Medical History / Comment(s): SCLERODERMA Medications and Allergies Home Medications Medication Instructions Recorded Confirmed Type Losartan Potassium 100 mg PO DAILY 10/30/14 01/09/23 History Rosuvastatin [Crestor] 10 mg PO HS 10/20/21 01/09/23 History Albuterol Nebulized [Ventolin 2.5 mg INHALATION RT-QID 11/07/21 01/09/23 History Nebulized] Fluticasone/Umeclidin/Vilanter 1 puff INHALATION RT-DAILY 05/14/22 01/09/23 Hi story [Javy Ellipta 100-62.5-25] Ipratropium-Albuterol Nebulize 3 ml INHALATION RT-Q4H 05/14/22 01/09/23 History [Duoneb 0.5 mg-3 mg/3 ml Soln] Metoprolol Succinate (ER) [Toprol 25 mg PO DAILY 05/14/22 01/09/23 History XL] Albuterol Inhaler [Ventolin Hfa 2 puff INHALATION RT-Q4H PRN #1 05/19/22 01/09/23 Rx Inhaler] each Acetaminophen Tab [Tylenol] 650 mg PO Q6HR PRN tab 06/19/22 01/09/23 Rx Ipratropium-Albuterol Nebulize 3 ml INHALATION RT-Q2H PRN each 07/27/22 01/09/23 Rx [Duoneb 0.5 mg-3 mg/3 ml Soln] dilTIAZem HCL [Cardizem CD] 120 mg PO HS 09/26/22 01/09/23 History hydroCHLOROthiazide [Hydrodiuril] 25 mg PO DAILY #90 tab 09/30/22 01/09/23 Rx predniSONE 10 mg PO DAILY #90 tab 09/30/22 01/09/23 Rx Benzonatate [Tessalon Perle] 200 mg PO TID 11/27/22 01/09/23 History Doxycycline [Vibramycin] 100 mg PO BID 7 Days #14 cap 11/30/22 01/09/23 Rx Benzocaine/Menthol Lozeng [Cepacol 1 lozenge MUCOUS MEM Q4HR PRN 01/09/23 01/09/23 History lozenge] Prednisolone Acetate/Pf 1 drop BOTH EYES QID 01/09/23 01/09/23 History [Prednisolone Acet 1% Eye Drop] Allergies Allergy/AdvReac Type Severity Reaction Status Date / Time hydrocodone bitartrate AdvReac states Verified 01/09/23 19:02 [From Vicodin] "doesn't make me feel good" prednisone AdvReac Hallucinati Verified 01/09/23 19:02 ons Physical Exam Vitals: Vital Signs Temp Pulse Pulse Resp BP BP Pulse Ox 01/10/23 11:41 100 01/10/23 11:30 94 01/10/23 08:08 94 01/10/23 07:59 94 L 01/10/23 07:55 92 01/10/23 07:29 97.8 F 81 18 133/77 99 01/10/23 02:05 97.9 F 90 19 115/67 97 01/09/23 20:53 98.0 F 103 H 20 104/53 94 L 01/09/23 20:13 104 H 01/09/23 20:02 110 H 01/09/23 18:13 98.5 F 110 H 20 128/64 95 01/09/23 17:28 105 H 136/76 96 01/09/23 15:45 81 L 01/09/23 15:30 103 H 01/09/23 15:20 96 01/09/23 14:26 91 01/09/23 14:16 94 01/09/23 12:47 99.6 F 106 H 24 114/62 92 L Intake and Output 01/09/23 01/10/23 01/10/23 22:59 06:59 14:59 Other: # Voids 2 Weight 72.575 kg GENERAL EXAM: Alert, pleasant 87-year-old female, on 2 L nasal cannula, fairly comfortable in no apparent distress. HEAD: Normocephalic. EYES: Normal reaction of pupils, equal size. NOSE: Clear with pink turbinates. THROAT: No erythema or exudates. NECK: No masses, no JVD. CHEST: No chest wall deformity. LUNGS: Equal air entry with scattered rhonchi, diminished. CVS: S1 and S2 normal with no audible murmur, regular rhythm. ABDOMEN: No hepatosplenomegaly, normal bowel sounds, no guarding or rigidity. SPINE: No scoliosis or deformity SKIN: No rashes CENTRAL NERVOUS SYSTEM: No focal deficits, tone is normal in all 4 extremities. EXTREMITIES: There is no peripheral edema. No clubbing, no cyanosis. Peripheral pulses are intact. Results - Laboratory Findings CBC and BMP: 01/10/23 06:04 01/10/23 06:04 Abnormal lab findings: Abnormal Labs 01/09/23 01/09/23 01/10/23 13:07 13:07 06:04 WBC 11.3 H 12.73 H RBC 3.98 L MCHC 31.8 L Neutrophils # 9.2 H 11.40 H Eosinophils # 0 L Potassium 3.3 L Carbon Dioxide 35 H BUN/Creatinine Ratio Glucose 108 H Total Protein 5.9 L Albumin 3.4 L 01/10/23 06:04 WBC RBC MCHC Neutrophils # Eosinophils # Potassium Carbon Dioxide BUN/Creatinine Ratio 23.83 H Glucose 153 H Total Protein Albumin - Diagnostic Findings Chest x-ray: image reviewed Assessment and Plan Assessment: Acute on chronic hypoxemic respiratory failure secondary to an acute exacer bation of chronic obstructive pulmonary disease. Possible community-acquired pneumonia. Pro-calcitonin pending Frequent exacerbations of COPD requiring frequent admissions, most recent discharge 11/30/2022 Oxygen dependent, steroid dependent chronic obstructive pulmonary disease with history of multiple bronchoscopies, most recent in August 2022 Former smoker Hypertension Hyperlipidemia History of hearing disorder History of diverticular disease Schatzki's ring status post balloon dilatation in June 2022 Plan: The patient was seen and evaluated Chest x-ray, labs and medications reviewed Check a pro-calcitonin Continue antibiotics for now Continue Symbicort, Solu-Medrol, DuoNeb inhalations Heparin for DVT prophylaxis Titrate the FiO2 as tolerated We will continue to follow and make further recommendations based on her clinical status I have personally seen and examined the patient, performed the documentation and the assessment and plan as written. Number of minutes spent on the visit: 20.
--- NOTE | 2023-01-10 12:28 | P.PN ---
Subjective Progress Note Date: 01/10/23 No new complaints. Feels overall improved. Would like to wait on CT scan of chest until approved by her head and neck surgeon Dr. Gilbert. Given their long standing relationship and no urgency of scan, this is very reasonable, and CT chest will be deferred to pulmonology team both in terms of necessity and ti sonal. Gen: awake, alert HEENT: normocephalic, atraumatic, good hearing acuity, moist mucous membranes Resp: good air exchange, breathing comfortably with no accessory muscle use CVS: good distal perfusion x 4, GI: soft, NTTP, ND : no SPT, no CVAT, miguel catheter not present MSK: no pitting edema, no clubbing Neuro: non-focal, moving all extremities Psych: cooperative, euthymic mood Hospital Course: 87-year-old woman with medical history of asthma/COPD on home oxygen, hypertension, hyperlipidemia, osteoarthritis presented to the ER with worsening shortness of breath. In the emergency room, patient was afebrile, 128/64, heart rate 110, 95% on 2 L nasal pain. CBC shows leukocytosis to 11.3, otherwise unremarkable basic metabolic panel shows potassium of 3.3, CO2 of 35. Liver function tests showed total protein of 5.9, albumin 3.4. Influenza A, B Bev, Covid were negative. Chest x-ray shows normal-sized heart, hyperinflation with flattening of the diaphragms, bilateral opacities in the lower lobes concerning for pneumonia versus edema. Case was discussed with emergency room provider decision was made to admit the patient to the hospital for further evaluation. Assessment: Asthma/COPD exacerbation Pulmonary opacities, concerning for pneumonia, predominantly reticular in nature Hypertension Hyperlipidemia Osteoarthritis Plan: Continue ceftriaxone, azithromycin Duo nebs every 4 hours Solu-Medrol 40 mg every [address] of the chest, but defer timing and necessity of this to pulmonology team Pulmonology consult Patient is no code Objective - Vital Signs Vital signs: Vital Signs Temp 97.8 F 01/10/23 07:29 Pulse 100 01/10/23 11:41 Resp 18 01/10/23 07:29 BP 133/77 01/10/23 07:29 Pulse Ox 94 L 01/10/23 07:59 FiO2 Intake & Output 01/09/23 01/10/23 01/10/23 18:59 06:59 18:59 Weight 72.575 kg Other: # Voids 2 - Labs CBC & Chem 7: 01/10/23 06:04 01/10/23 06:04 Labs: Abnormal Lab Results - Last 24 Hours (Table) 01/09/23 01/09/23 01/10/23 Range/Units 13:07 13:07 06:04 WBC 11.3 H 12.73 H (3.8-10.6) k/uL RBC 3.98 L (4.10-5.20) X 10*6/uL MCHC 31.8 L (32.0-37.0) d/dL Neutrophils # 9.2 H 11.40 H (1.3-7.7) k/uL Eosinophils # 0 L (0.04-0.35) X 10*3/uL Potassium 3.3 L (3.5-5.1) mmol/L Carbon Dioxide 35 H (22-30) mmol/L BUN/Creatinine Ratio (12.00-20.00) Ratio Glucose 108 H (74-99) mg/dL Total Protein 5.9 L (6.3-8.2) g/dL Albumin 3.4 L (3.5-5.0) g/dL 01/10/23 Range/Units 06:04 WBC (3.8-10.6) k/uL RBC (4.10-5.20) X 10*6/uL MCHC (32.0-37.0) d/dL Neutrophils # (1.3-7.7) k/uL Eosinophils # (0.04-0.35) X 10*3/uL Potassium (3.5-5.1) mmol/L Carbon Dioxide (22-30) mmol/L BUN/Creatinine Ratio 23.83 H (12.00-20.00) Ratio Glucose 153 H (74-99) mg/dL Total Protein (6.3-8.2) g/dL Albumin (3.5-5.0) g/dL
[2023-01-10] MEDS: AZITHROMYCIN 500 MG in SODIUM CHLORIDE 0.9% 250 ML IVPB SCH (16:46)
[2023-01-10] MEDS: polyethylene glycoL 3350 17 GM POWD.PACK PO SCH (21:15)
[2023-01-10] MEDS: traZODone HCL 50 MG TAB PO PRN (21:15)
[2023-01-10] MEDS: SENNOSIDES-DOCUSATE SODIUM 1 EACH TAB PO SCH (21:16)
[2023-01-10] MEDS: SYMBICORT 160-4.5 MCG INHALER INHALATION SCH (21:37)
[2023-01-11] MEDS: SYMBICORT 160-4.5 MCG INHALER INHALATION SCH (08:07)
[2023-01-11] MEDS: IPRATROPIUM-ALBUTEROL 3 ML NEB INHALATION SCH ×4 (08:07→20:47)
[2023-01-11] MEDS: ACETAMINOPHEN TAB 325 MG TAB PO PRN (09:35)
[2023-01-11] MEDS: methylPREDNISolone SOD SUCCI 40 MG/ML 1 ML VIAL IV SCH ×2 (09:35→21:05)
[2023-01-11] MEDS: HEPARIN SODIUM,PORCINE/PF 5,000 UNIT/0.5 ML SYRINGE SQ SCH ×2 (09:36→21:05)
[2023-01-11] MEDS: SENNOSIDES-DOCUSATE SODIUM 1 EACH TAB PO SCH ×2 (09:37→21:04)
[2023-01-11] MEDS: polyethylene glycoL 3350 17 GM POWD.PACK PO SCH (09:37)
[2023-01-11 12:16] VITALS: BMI 24.7
[2023-01-11] MEDS ORDERED: ACETAMINOPHEN TAB 325 MG TAB PO PRN (13:31)
[2023-01-11] MEDS ORDERED: IPRATROPIUM-ALBUTEROL 3 ML NEB INHALATION PRN (13:31)
[2023-01-11] MEDS ORDERED: BENZOCAINE/MENTHOL LOZENG 1 EACH LOZENGE MUCOUS MEM PRN (13:31)
[2023-01-11] MEDS ORDERED: ALBUTEROL NEBULIZED 2.5 MG/3 ML INHALATION PRN (13:31)
[2023-01-11] MEDS: METOPROLOL SUCCINATE (ER) 25 MG TAB.ER.24H PO SCH (13:50)
[2023-01-11] MEDS: hydroCHLOROthiazide 25 MG TAB PO SCH (13:50)
[2023-01-11] MEDS: LOSARTAN 50 MG TAB PO SCH (13:50)
--- NOTE | 2023-01-11 14:00 | P.PN ---
Subjective Progress Note Date: 01/11/23 No new complaints. Feels overall improved. Gen: awake, alert HEENT: normocephalic, atraumatic, good hearing acuity, moist mucous membranes Resp: good air exchange, breathing comfortably with no accessory muscle use CVS: good distal perfusion x 4, GI: soft, NTTP, ND : no SPT, no CVAT, miguel catheter not present MSK: no pitting edema, no clubbing Neuro: non-focal, moving all extremities Psych: cooperative, euthymic mood Hospital Course: 87-year-old woman with medical history of asthma/COPD on home oxygen, hypertension, hyperlipidemia, osteoarthritis presented to the ER with worsening shortness of breath. In the emergency room, patient was afebrile, 128/64, heart rate 110, 95% on 2 L nasal pain. CBC shows leukocytosis to 11.3, otherwise unremarkable basic metabolic panel shows potassium of 3.3, CO2 of 35. Liver function tests showed total protein of 5.9, albumin 3.4. Influenza A, B Bev, Covid were negative. Chest x-ray shows normal-sized heart, hyperinflation with flattening of the diaphragms, bilateral opacities in the lower lobes concerning for pneumonia versus edema. Case was discussed with emergency room provider decision was made to admit the patient to the hospital for further evaluation. Assessment: Asthma/COPD exacerbation Pulmonary opacities, concerning for pneumonia, predominantly reticular in nature Hypertension Hyperlipidemia Osteoarthritis Plan: Continue ceftriaxone, azithromycin Duo nebs every 4 hours Solu-Medrol 40 mg every 12 hours Pulmonology consult appreciated Home medication reconciliation completed today Patient is no code Objective - Vital Signs Vital signs: Vital Signs Temp 97.7 F 01/11/23 07:37 Pulse 96 01/11/23 11:22 Resp 18 01/11/23 07:37 BP 150/81 01/11/23 07:37 Pulse Ox 99 01/11/23 08:10 FiO2 Intake & Output 01/10/23 01/11/23 01/11/23 18:59 06:59 18:59 Weight 72.575 kg Other: Voiding Method Toilet # Voids 3 2 1 - Labs CBC & Chem 7: 01/10/23 06:04 01/10/23 06:04
[2023-01-11] MEDS ORDERED: ALBUTEROL NEBULIZED 2.5 MG/3 ML INHALATION SCH (16:00)
[2023-01-11] MEDS ORDERED: IPRATROPIUM 0.5 MG/2.5 ML NEBU INHALATION SCH (16:00)
--- NOTE | 2023-01-11 16:06 | P.PN ---
Subjective Progress Note Date: 01/11/23 This is a very pleasant 87-year-old female patient with a known history of chronic obstructive pulmonary disease, oxygen dependent, hyperlipidemia, hypertension, former smoker, osteoarthritis, hard of hearing. She's been having ongoing issues with recurrent exacerbations of her COPD. She has been admitted here frequently for exacerbation. She did undergo bronchoscopy with BAL again on 09/03/2022 with findings of Lavern only. No evidence of malignancy. She is maintained on prednisone 10 mg daily along with Trelegy and DuoNeb inhalations. Her last discharge for COPD exacerbation was 11/30/2022. She presented here again yesterday to the emergency department with increasing shortness of breath, cough and congestion. Chest x-rays revealing by basilar patchy airspace opacities concerning for pneumonia. White count 12.7. Hemoglobin 12.1. Platelet count 410. Sodium 140. Potassium 3.9. Bicarb 26. BUN 14. Creatinine 0.6. Glucose 153. Influenza screen negative. RSV screen negative. COVID-19 screen negative. She's been initiated on DuoNeb inhalations, Symbicort, Solu-Medrol. Antibiotics in the form of ceftriaxone and azithromycin. Heparin for DVT prophylaxis. She is seen today in consultation on the regular medical floor. She is resting comfortably in bed. Awake and alert in no acute distress. She has a loose nonproductive cough. She is maintaining O2 saturations in the 90s on 2 L/m per nasal cannula. She is declining a computed tomography scan of the chest as recommended by the primary care service. On today's evaluation of 01/11/2023, the patient is feeling essentially the same, slightly improved compared to yesterday. She remains on examination bronchodilators and steroids. She is also on broad-spectrum antibiotics with IV Rocephin. Chest x-ray showed no evidence of any pneumonia. She has a chronic congested cough. Unable to bring up any sputum. She has advanced COPD and she is oxygen dependent. Her pro calcitonin level is at 0.03. Electrodes are within normal limits. echoes at 4.7. Hemoglobin is 12.1. She has limited on Trelegy Ellipta on outpatient basis. She is also chronically steroid dependent. Objective - Vital Signs Vital signs: Vital Signs Temp 97.7 F 01/11/23 07:37 Pulse 96 01/11/23 11:22 Resp 18 01/11/23 07:37 BP 150/81 01/11/23 07:37 Pulse Ox 99 01/11/23 08:10 FiO2 Intake & Output 01/10/23 01/11/23 01/11/23 18:59 06:59 18:59 Weight 72.575 kg Other: Voiding Method Toilet # Voids 3 2 1 - Exam GENERAL EXAM: Alert, pleasant 87-year-old female, on 2 L nasal cannula, fairly comfortable in no apparent distress. HEAD: Normocephalic. EYES: Normal reaction of pupils, equal size. NOSE: Clear with pink turbinates. THROAT: No erythema or exudates. NECK: No masses, no JVD. CHEST: No chest wall deformity. LUNGS: Equal air entry with scattered rhonchi, diminished. CVS: S1 and S2 normal with no audible murmur, regular rhythm. ABDOMEN: No hepatosplenomegaly, normal bowel sounds, no guarding or rigidity. SPINE: No scoliosis or deformity SKIN: No rashes CENTRAL NERVOUS SYSTEM: No focal deficits, tone is normal in all 4 extremities. EXTREMITIES: There is no peripheral edema. No clubbing, no cyanosis. Peripheral pulses are intact. - Labs CBC & Chem 7: 01/10/23 06:04 01/10/23 06:04 Assessment and Plan Plan: Acute on chronic hypoxemic respiratory failure secondary to an acute exacerbation of chronic obstructive pulmonary disease. No acute indication for pneumonia and the patient's pro-calcitonin level is low Frequent exacerbations of COPD requiring frequent admissions, most recent discharge 11/30/2022 Oxygen dependent, steroid dependent chronic obstructive pulmonary disease with history of multiple bronchoscopies, most recent in August 2022 Former smoker Hypertension Hyperlipidemia History of hearing disorder History of diverticular disease Schatzki's ring status post balloon dilatation in June 2022 Plan: Continue same treatment No need for a CAT scan of the chest Pro calcitonin level is low Continue antibiotics for now Continue Symbicort, Solu-Medrol, DuoNeb inhalations Heparin for DVT prophylaxis Titrate the FiO2 as tolerated We will continue to follow and make further recommendations based on her clinical status
[2023-01-11] MEDS: BENZONATATE 100 MG CAP PO SCH ×2 (16:23→21:04)
[2023-01-11] MEDS: AZITHROMYCIN 500 MG in SODIUM CHLORIDE 0.9% 250 ML IVPB SCH (16:24)
[2023-01-11] MEDS: prednisoLONE ACETATE 1% OPHTH DROPS 5 ML BTL BOTH EYES SCH ×2 (16:29→21:06)
[2023-01-11] MEDS: SYMBICORT 80-4.5 MCG INHALER INHALATION SCH (20:47)
[2023-01-11] MEDS: traZODone HCL 50 MG TAB PO PRN (21:04)
[2023-01-11] MEDS: ATORVASTATIN 20 MG TAB PO SCH (21:04)
[2023-01-11] MEDS: DILTIAZEM CD 120 MG CAP.ER.24H PO SCH (21:05)
[2023-01-12] MEDS: IPRATROPIUM-ALBUTEROL 3 ML NEB INHALATION SCH ×6 (00:41→20:58)
[2023-01-12] MEDS: SYMBICORT 80-4.5 MCG INHALER INHALATION SCH ×2 (07:59→20:58)
[2023-01-12] MEDS: polyethylene glycoL 3350 17 GM POWD.PACK PO SCH (08:45)
[2023-01-12] MEDS: SENNOSIDES-DOCUSATE SODIUM 1 EACH TAB PO SCH ×2 (08:46→21:30)
[2023-01-12] MEDS: methylPREDNISolone SOD SUCCI 40 MG/ML 1 ML VIAL IV SCH ×2 (08:54→21:30)
[2023-01-12] MEDS: LOSARTAN 50 MG TAB PO SCH (08:54)
[2023-01-12] MEDS: hydroCHLOROthiazide 25 MG TAB PO SCH (08:54)
[2023-01-12] MEDS: BENZONATATE 100 MG CAP PO SCH ×3 (08:54→21:30)
[2023-01-12] MEDS: METOPROLOL SUCCINATE (ER) 25 MG TAB.ER.24H PO SCH (08:54)
[2023-01-12] MEDS: HEPARIN SODIUM,PORCINE/PF 5,000 UNIT/0.5 ML SYRINGE SQ SCH ×2 (08:55→21:30)
[2023-01-12] MEDS: prednisoLONE ACETATE 1% OPHTH DROPS 5 ML BTL BOTH EYES SCH ×4 (08:55→21:31)
--- NOTE | 2023-01-12 12:08 | P.PN ---
Subjective Progress Note Date: 01/12/23 This is a very pleasant 87-year-old female patient with a known history of chronic obstructive pulmonary disease, oxygen dependent, hyperlipidemia, hypertension, former smoker, osteoarthritis, hard of hearing. She's been having ongoing issues with recurrent exacerbations of her COPD. She has been admitted here frequently for exacerbation. She did undergo bronchoscopy with BAL again on 09/03/2022 with findings of Lavern only. No evidence of malignancy. She is maintained on prednisone 10 mg daily along with Trelegy and DuoNeb inhalations. Her last discharge for COPD exacerbation was 11/30/2022. She presented here again yesterday to the emergency department with increasing shortness of breath, cough and congestion. Chest x-rays revealing by basilar patchy airspace opacities concerning for pneumonia. White count 12.7. Hemoglobin 12.1. Platelet count 410. Sodium 140. Potassium 3.9. Bicarb 26. BUN 14. Creatinine 0.6. Glucose 153. Influenza screen negative. RSV screen negative. COVID-19 screen negative. She's been initiated on DuoNeb inhalations, Symbicort, Solu-Medrol. Antibiotics in the form of ceftriaxone and azithromycin. Heparin for DVT prophylaxis. She is seen today in consultation on the regular medical floor. She is resting comfortably in bed. Awake and alert in no acute distress. She has a loose nonproductive cough. She is maintaining O2 saturations in the 90s on 2 L/m per nasal cannula. She is declining a computed tomography scan of the chest as recommended by the primary care service. On today's evaluation of 01/11/2023, the patient is feeling essentially the same, slightly improved compared to yesterday. She remains on examination bronchodilators and steroids. She is also on broad-spectrum antibiotics with IV Rocephin. Chest x-ray showed no evidence of any pneumonia. She has a chronic congested cough. Unable to bring up any sputum. She has advanced COPD and she is oxygen dependent. Her pro calcitonin level is at 0.03. Electrodes are within normal limits. echoes at 4.7. Hemoglobin is 12.1. She has limited on Trelegy Ellipta on outpatient basis. She is also chronically steroid dependent. 01/12/2023, the patient still being treated for an acute COPD exacerbation. She has a congested cough. I would recover much of sputum. She is having difficulties following that she is known to have esophageal narrowing and I'm going to consult gastroenterology in this regard. She has had previous esophageal dilatations. No reported aspiration for now. No new labs from today. Objective - Vital Signs Vital signs: Vital Signs Temp 97.6 F 01/12/23 06:55 Pulse 88 01/12/23 08:11 Resp 18 01/12/23 08:11 BP 131/70 01/12/23 06:55 Pulse Ox 96 01/12/23 07:59 FiO2 Intake & Output 01/11/23 01/12/23 01/12/23 18:59 06:59 18:59 Weight 72.575 kg Other: # Voids 3 3 1 - Exam GENERAL EXAM: Alert, pleasant 87-year-old female, on 2 L nasal cannula, fairly comfortable in no apparent distress. HEAD: Normocephalic. EYES: Normal reaction of pupils, equal size. NOSE: Clear with pink turbinates. THROAT: No erythema or exudates. NECK: No masses, no JVD. CHEST: No chest wall deformity. LUNGS: Equal air entry with scattered rhonchi, diminished. CVS: S1 and S2 normal with no audible murmur, regular rhythm. ABDOMEN: No hepatosplenomegaly, normal bowel sounds, no guarding or rigidity. SPINE: No scoliosis or deformity SKIN: No rashes CENTRAL NERVOUS SYSTEM: No focal deficits, tone is normal in all 4 extremities. EXTREMITIES: There is no peripheral edema. No clubbing, no cyanosis. Peripheral pulses are intact. - Labs CBC & Chem 7: 01/10/23 06:04 01/10/23 06:04 Assessment and Plan Plan: Acute on chronic hypoxemic respiratory failure secondary to an acute exacerbati on of chronic obstructive pulmonary disease. No acute indication for pneumonia and the patient's pro-calcitonin level is low, slowly improving clinically Frequent exacerbations of COPD requiring frequent admissions, most recent discharge 11/30/2022 Oxygen dependent, steroid dependent chronic obstructive pulmonary disease with history of multiple bronchoscopies, most recent in August 2022 Former smoker Hypertension Hyperlipidemia History of hearing disorder History of diverticular disease Schatzki's ring status post balloon dilatation in June 2022 Plan: Continue same treatment No need for a CAT scan of the chest Pro calcitonin level is low Continue antibiotics for now Continue Symbicort, Solu-Medrol, DuoNeb inhalations Heparin for DVT prophylaxis Titrate the FiO2 as tolerated Consult Dr. Osullivan from gastroenterology for possible EGD and esophageal dilatation Continue IV Solu-Medrol We will continue to follow and make further recommendations based on her clinical status
--- NOTE | 2023-01-12 14:50 | P.CONS ---
History of Present Illness - Reason for Consult Consult date: 01/12/23 Esophageal stricture Requesting physician: Da Gilbert - Chief Complaint Shortness of breath - History of Present Illness This is a pleasant 87-year-old female with past medical history including COPD, oxygen dependent, hyperlipidemia, hypertension, former smoker with recurrent exacerbations of her COPD who presented to the emergency department with shortness of breath. Patient was admitted for acute on chronic hypoxemic respiratory failure secondary to acute exacerbation of chronic obstructive pulmonary disease. During her admission patient had mentioned that she was having some difficulty with swallowing. She does have a known history of Schatzki's ring with need for esophageal dilation. I asked her upper endoscopy was in June of this year with findings of Schatzki's ring with esophageal dilation. Gastroenterology was consulted for dysphagia. Patient states that she does not chew her food well or takes too big of bites or too much food in her mouth she will have some difficulty swallowing otherwise she does fine. Denies any nausea or vomiting. Denies any weight loss. Review of Systems REVIEW OF SYSTEMS: CARDIOPULMONARY: No chest pain. Patient with positive shortness of breath, productive cough. Gastrointestinal: Denies any abdominal pain. No weight loss. Does have some difficulty swallowing as patient does not chew her food well or takes too large bites or too much food in her mouth otherwise patient is able to swallow without difficulty. No nausea or vomiting. No hematemesis, coffee-ground emesis. No rectal bleeding, or melena. GENITOURINARY: No dysuria or hematuria. MUSCULOSKELETAL: Reports normal range of motion., Joint pain. SKIN: No rashes. No jaundice. ENDOCRINE: No chills, fevers. No excessive weight gain or loss. No polydipsia or polyuria. PSYCHIATRIC: Unremarkable. NEUROLOGY: No change in mental status. Denies dizziness, headache. ENT: Vision unremarkable. CONSTITUTIONAL: No recent weight loss. No fever, chills, night sweats. 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 Last Myocardial Infarction Date:: 40 years ago History of Any Multi-Drug Resistant Organisms: None Reported Past Surgical History: Cholecystectomy, Hysterectomy, Orthopedic Surgery Additional Past Surgical History / Comment(s): KNEE arthroscopy, COLONOSCOPY- LARGE POLYP REMOVED, EGD, cataracts, Right TKA (10/21/21) Past Anesthesia/Blood Transfusion Reactions: No Reported Reaction Additional Past Anesthesia/Blood Transfusion Reaction / Comm: No hx blood transfusion. Smoking Status: Former smoker - Past Family History Sister(s) Family Medical History: Cancer Additional Family Medical History / Comment(s): #1 sister colon cancer, # 2 sister lung cancer. Father Family Medical History: Cancer Additional Family Medical History / Comment(s): Prostate cancer. Mother Family Medical History: Asthma Additional Family Medical History / Comment(s): Heart problems. Son(s) Additional Family Medical History / Comment(s): SCLERODERMA Medications and Allergies Home Medications Medication Instructions Recorded Confirmed Type Losartan Potassium 100 mg PO DAILY 10/30/14 01/09/23 History Rosuvastatin [Crestor] 10 mg PO HS 10/20/21 01/09/23 History Albuterol Nebulized [Ventolin 2.5 mg INHALATION RT-QID 11/07/21 01/09/23 History Nebulized] Fluticasone/Umeclidin/Vilanter 1 puff INHALATION RT-DAILY 05/14/22 01/09/23 History [Trelegy Ellipta 100-62.5-25] Ipratropium-Albuterol Nebulize 3 ml INHALATION RT-Q4H 05/14/22 01/09/23 History [Duoneb 0.5 mg-3 mg/3 ml Soln] Metoprolol Succinate (ER) [Toprol 25 mg PO DAILY 05/14/22 01/09/23 History XL] Albuterol Inhaler [Ventolin Hfa 2 puff INHALATION RT-Q4H PRN #1 05/19/22 01/09/23 Rx Inhaler] each Acetaminophen Tab [Tylenol] 650 mg PO Q6HR PRN tab 06/19/22 01/09/23 Rx Ipratropium-Albuterol Nebulize 3 ml INHALATION RT-Q2H PRN each 07/27/22 01/09/23 Rx [Duoneb 0.5 mg-3 mg/3 ml Soln] dilTIAZem HCL [Cardizem CD] 120 mg PO HS 09/26/22 01/09/23 History hydroCHLOROthiazide [Hydrodiuril] 25 mg PO DAILY #90 tab 09/30/22 01/09/23 Rx predniSONE 10 mg PO DAILY #90 tab 09/30/22 01/09/23 Rx Benzonatate [Tessalon Perle] 200 mg PO TID 11/27/22 01/09/23 History Doxycycline [Vibramycin] 100 mg PO BID 7 Days #14 cap 11/30/22 01/09/23 Rx Benzocaine/Menthol Lozeng [Cepacol 1 lozenge MUCOUS MEM Q4HR PRN 01/09/23 01/09/23 History lozenge] Prednisolone Acetate/Pf 1 drop BOTH EYES QID 01/09/23 01/09/23 History [Prednisolone Acet 1% Eye Drop] Allergies Allergy/AdvReac Type Severity Reaction Status Date / Time hydrocodone bitartrate AdvReac states Verified 01/09/23 19:02 [From Vicodin] "doesn't make me feel good" prednisone AdvReac Hallucinati Verified 01/09/23 19:02 ons Physical Exam Vitals: Vital Signs Temp Pulse Pulse Resp BP Pulse Ox 01/12/23 11:14 84 16 01/12/23 11:04 81 18 01/12/23 08:11 88 18 01/12/23 07:59 81 18 96 01/12/23 06:55 97.6 F 77 16 131/70 99 01/12/23 04:00 94 01/12/23 03:53 90 01/12/23 02:00 97.9 F 99 18 141/71 95 01/11/23 21:01 92 01/11/23 20:47 90 01/11/23 19:51 98.2 F 98 18 118/67 99 01/11/23 16:27 96 01/11/23 16:18 95 01/11/23 14:53 98.0 F 107 H 134/73 97 Intake and Output 01/11/23 01/12/23 01/12/23 22:59 06:59 14:59 Other: # Voids 3 3 1 General appearance: The patient is alert, oriented, appears in no acute distress. HET: Head is normocephalic and atraumatic. Conjunctiva pink. Sclera anicteric. Neck: Supple without lymphadenopathy. Trachea midline. Heart: S1 S2. Regular rate and rhythm. Lungs: Diminished with scattered rhonchi. Abdomen: Soft, nontender, nondistended with bowel sounds. No guarding or rigidity. Skin: No rashes. No jaundice. Extremities: Normal skin color and turgor. No pedal edema. Neurological: No focal deficits. Alert and oriented x3. Results CBC & Chem 7: 01/10/23 06:04 01/10/23 06:04 Assessment and Plan (1) Dysphagia Narrative/Plan: A 7-year-old female with history of dysphagia and Schatzki's ring status post esophageal dilation in June 2022. Patient is actually admitted for shortness of breath with COPD exacerbation with acute hypoxic respiratory failure. Patient is not having any difficulty swallowing if she takes it is time to chew her food well and take small bites. Will plan on doing barium swallow. No plans at this time for upper endoscopy due to her current respiratory status. If findings of esophageal stricture can consider outpatient endoscopy with dilation once respiratory status improves. Current Visit: No Status: Acute Code(s): R13.10 - DYSPHAGIA, UNSPECIFIED SNOMED Code(s): 94149019 (2) Acute respiratory failure with hypoxia Current Visit: Yes Status: Acute Code(s): J96.01 - ACUTE RESPIRATORY FAILURE WITH HYPOXIA SNOMED Code(s): 65432122 (3) COPD (chronic obstructive pulmonary disease) Current Visit: Yes Status: Acute Code(s): J44.9 - CHRONIC OBSTRUCTIVE PULMONARY DISEASE, UNSPECIFIED SNOMED Code(s): 20328321 (4) COPD exacerbation Current Visit: No Status: Acute Code(s): J44.1 - CHRONIC OBSTRUCTIVE PULMONARY DISEASE W (ACUTE) EXACERBATION SNOMED Code(s): 161221091 Plan: 1. Continue symptomatic and supportive care 2. Continue with augmentation from pulmonology 3. Barium swallow ordered 4. Discussed with patient importance of taking small bites, chewing food well before swallowing 5. No plans on endoscopic evaluation at this time can consider outpatient if needed Thank you for this consultation, we will continue to follow. Dr. Haroldo Lehman I agree with the dictator's note, documented as a scribe by Josee Elizondo.
--- NOTE | 2023-01-12 15:12 | FL ---
EXAMINATION TYPE: FL barium swallow DATE OF EXAM: 01/12/2023 CLINICAL INDICATION: 87-year-old female with dysphagia, sensation of food sticking in the upper to mi d chest. History of COPD. COMPARISON: None Total Fluoroscopy Time: 3 minutes 7 seconds Total images: 73. Total DAP: 376.8 mGycm2 FINDINGS: There is no penetration or aspiration seen. There are prominent piriform sinuses. There is thickening cricopharyngeus causing moderate narrowing of the upper cervical esophagus. The thoracic portion demonstrates normal course but moderate to severe tertiary peristaltic waves and blunted secondary stripping waves. There is eventual distention of the distal third esophagus. No fi xed narrowing is seen. The mucosa is normal and no persistent filling defect is encountered. There is a tiny hiatal hernia. Given patient's condition, prone/supine drinking to assess for gastroesophageal reflux was not perfor med. IMPRESSION: 1. 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 No stricture is identified. 2. CP muscle hypertrophy causing moderate relative narrowing at the cervical esophagus. 3. Tiny hiatal hernia. Prone/supine assessment is not performed due to patient's condition. We were u nable to test for gastroesophageal reflux.
[2023-01-12] MEDS: AZITHROMYCIN 500 MG in SODIUM CHLORIDE 0.9% 250 ML IVPB SCH (16:50)
--- NOTE | 2023-01-12 17:45 | P.PN ---
Subjective Progress Note Date: 01/12/23 87-year-old woman with medical history of asthma/COPD on home oxygen, hypertension, hyperlipidemia, osteoarthritis presented to the ER with worsening shortness of breath. In the emergency room, patient was afebrile, 128/64, heart rate 110, 95% on 2 L nasal pain. CBC shows leukocytosis to 11.3, otherwise unremarkable basic metabolic panel shows potassium of 3.3, CO2 of 35. Liver function tests showed total protein of 5.9, albumin 3.4. Influenza A, B Bev, Covid were negative. Chest x-ray shows normal-sized heart, hyperinflation with flattening of the diaphragms, bilateral opacities in the lower lobes concerning for pneumonia versus edema. Case was discussed with emergency room provider decision was made to admit the patient to the hospital for further evaluation. Patient was started on bronchodilators and Solu-Medrol IV. Pulmonology was consulted for further management of this patient. She received azithromycin and Rocephin for concerns of community acquired pneumonia. GI was consulted with regard to her dysphagia and barium swallow was ordered. Barium swallow showed presbyesophagus. 01/12 Patient was seen and examined. She reports continued shortness of breath. She reports difficulty swallowing. GI was consulted with regard to her dysphagia and barium swallow was ordered. Barium swallow showed presbyesophagus. BP 129/67 P 99 RR 17 T 98.9F 94% on 2L NC. General: non toxic, no distress, appears at stated age Derm: warm, dry Head: atraumatic, normocephalic, symmetric Eyes: EOMI, no lid lag, anicteric sclera Cardiovascular: Tachycardic, no murmur Lungs: Scattered expiratory wheezing bilateral, no rhonchi, no rales , no accessory muscle use Ext: no gross muscle atrophy, no edema, no contractures Neuro: no focal neuro deficits Psych: Alert, oriented, appropriate affect Asthma/COPD exacerbation Pulmonary opacities, concerning for pneumonia, predominantly reticular in nature Dysphagia Hypertension Hyperlipidemia Osteoarthritis Based on my assessment of this patient, this patient meets a moderate complexity level of care. Patient has a COPD with severe exacerbation or progression of disease which poses a threat to life or bodily function. Asthma/COPD exacerbation: Continue DuoNeb scheduled and as needed for shortness of breath and wheezing. Continue Solu-Medrol 40 mg IV twice a day. Pulmonology on board. Pulmonary opacities, concerning for pneumonia, predominantly reticular in nature: Continue Rocephin and azithromycin for concerns of community acquired pneumonia. Dysphagia: Barium swallow shows presbyesophagus. Follow-up in the outpatient setting for further management. Hypertension Hyperlipidemia Osteoarthritis Patient is pending clinical improvement in her breathing. Anticipate DC tomorrow. I have reviewed the following financial management consultant notes: GI note reviewed. I have reviewed the results of the following tests: Barium swallow reviewed. I have ordered the following tests: I have discussed the care of this patient with the following independent historian: I have independently interpreted the following test below: I have discussed the management of this patient with the following physician: Objective - Vital Signs Vital signs: Vital Signs Temp 98.9 F 01/12/23 13:34 Pulse 98 01/12/23 15:40 Resp 18 01/12/23 15:40 BP 129/67 01/12/23 13:34 Pulse Ox 94 L 01/12/23 13:34 FiO2 Intake & Output 01/11/23 01/12/23 01/12/23 18:59 06:59 18:59 Weight 72.575 kg Other: # Voids 3 3 2 - Labs CBC & Chem 7: 01/10/23 06:04 01/10/23 06:04
[2023-01-12] MEDS: DILTIAZEM CD 120 MG CAP.ER.24H PO SCH (21:30)
[2023-01-12] MEDS: ATORVASTATIN 20 MG TAB PO SCH (21:30)
[2023-01-12] MEDS: traZODone HCL 50 MG TAB PO PRN (21:37)
[2023-01-13] MEDS: IPRATROPIUM-ALBUTEROL 3 ML NEB INHALATION SCH ×4 (02:01→13:31)
[2023-01-13 03:57] VITALS: TEMP 97.8
[2023-01-13 07:27] VITALS: BP 156/79; RESP 16
[2023-01-13] MEDS: methylPREDNISolone SOD SUCCI 40 MG/ML 1 ML VIAL IV SCH (08:23)
[2023-01-13] MEDS: METOPROLOL SUCCINATE (ER) 25 MG TAB.ER.24H PO SCH (09:03)
[2023-01-13] MEDS: hydroCHLOROthiazide 25 MG TAB PO SCH (09:03)
[2023-01-13] MEDS: LOSARTAN 50 MG TAB PO SCH (09:03)
[2023-01-13] MEDS: BENZONATATE 100 MG CAP PO SCH (09:03)
[2023-01-13] MEDS: HEPARIN SODIUM,PORCINE/PF 5,000 UNIT/0.5 ML SYRINGE SQ SCH (09:05)
[2023-01-13] MEDS: prednisoLONE ACETATE 1% OPHTH DROPS 5 ML BTL BOTH EYES SCH ×2 (09:08→14:19)
[2023-01-13] MEDS: SENNOSIDES-DOCUSATE SODIUM 1 EACH TAB PO SCH (09:08)
[2023-01-13] MEDS: polyethylene glycoL 3350 17 GM POWD.PACK PO SCH (09:08)
[2023-01-13] MEDS: SYMBICORT 80-4.5 MCG INHALER INHALATION SCH (09:39)
[2023-01-13 09:59] VITALS: PULSE 70
--- NOTE | 2023-01-13 13:59 | P.PN ---
Subjective Progress Note Date: 01/13/23 This is a very pleasant 87-year-old female patient with a known history of chronic obstructive pulmonary disease, oxygen dependent, hyperlipidemia, hypertension, former smoker, osteoarthritis, hard of hearing. She's been having ongoing issues with recurrent exacerbations of her COPD. She has been admitted here frequently for exacerbation. She did undergo bronchoscopy with BAL again on 09/03/2022 with findings of La[place] only. No evidence of malignancy. She is maintained on prednisone 10 mg daily along with Trelegy and DuoNeb inhalations. Her last discharge for COPD exacerbation was 11/30/2022. She presented here again yesterday to the emergency department with increasing shortness of breath, cough and congestion. Chest x-rays revealing by basilar patchy airspace opacities concerning for pneumonia. White count 12.7. Hemoglobin 12.1. Platelet count 410. Sodium 140. Potassium 3.9. Bicarb 26. BUN 14. Creatinine 0.6. Glucose 153. Influenza screen negative. RSV screen negative. COVID-19 screen negative. She's been initiated on DuoNeb inhalations, Symbicort, Solu-Medrol. Antibiotics in the form of ceftriaxone and azithromycin. Heparin for DVT prophylaxis. She is seen today in consultation on the regular medical floor. She is resting comfortably in bed. Awake and alert in no acute distress. She has a loose nonproductive cough. She is maintaining O2 saturations in the 90s on 2 L/m per nasal cannula. She is declining a computed tomography scan of the chest as recommended by the primary care service. On today's evaluation of 01/11/2023, the patient is feeling essentially the same, slightly improved compared to yesterday. She remains on examination bronchodilators and steroids. She is also on broad-spectrum antibiotics with IV Rocephin. Chest x-ray showed no evidence of any pneumonia. She has a chronic congested cough. Unable to bring up any sputum. She has advanced COPD and she is oxygen dependent. Her pro calcitonin level is at 0.03. Electrodes are within normal limits. echoes at 4.7. Hemoglobin is 12.1. She has limited on Trelegy Ellipta on outpatient basis. She is also chronically steroid dependent. 01/12/2023, the patient still being treated for an acute COPD exacerbation. She has a congested cough. I would recover much of sputum. She is having difficulties following that she is known to have esophageal narrowing and I'm going to consult gastroenterology in this regard. She has had previous esophageal dilatations. No reported aspiration for now. No new labs from today. On 01/13/2023, the patient is feeling slightly better. She continues to have some congested cough. Overall the bronchospasm wheezing has improved significantly. At the same time, a GI consultation was obtained regarding her Schatzki's ring and chronic dysphagia. The patient underwent a modified barium swallow and the patient was found to have moderate to severe esophageal dysmotility, no stricture he had the cervical esophagus muscle was hypertrophy and there was moderate degree of narrowing of the cervical esophagus. A tiny hiatal hernia. It was decided that she will handle this on an outpatient basis. She has no other new complaints otherwise for now. Objective - Vital Signs Vital signs: Vital Signs Temp 97.8 F 01/13/23 06:48 Pulse 70 01/13/23 09:58 Resp 16 01/13/23 06:48 BP 156/79 01/13/23 06:48 Pulse Ox 96 01/13/23 09:40 FiO2 Intake & Output 01/12/23 01/13/23 01/13/23 18:59 06:59 18:59 Other: # Voids 2 3 1 - Exam GENERAL EXAM: Alert, pleasant 87-year-old female, on 2 L nasal cannula, fairly comfortable in no apparent distress. HEAD: Normocephalic. EYES: Normal reaction of pupils, equal size. NOSE: Clear with pink turbinates. THROAT: No erythema or exudates. NECK: No masses, no JVD. CHEST: No chest wall deformity. LUNGS: Equal air entry with scattered rhonchi, diminished. CVS: S1 and S2 normal with no audible murmur, regular rhythm. ABDOMEN: No hepatosplenomegaly, normal bowel sounds, no guarding or rigidity. SPINE: No scoliosis or deformity SKIN: No rashes CENTRAL NERVOUS SYSTEM: No focal deficits, tone is normal in all 4 extremities. EXTREMITIES: There is no peripheral edema. No clubbing, no cyanosis. Peripheral pulses are intact. - Labs CBC & Chem 7: 01/10/23 06:04 01/10/23 06:04 Assessment and Plan Plan: Acute on chronic hypoxemic respiratory failure secondary to an acute exacerbation of chronic obstructive pulmonary disease. No acute indication for pneumonia and the patient's pro-calcitonin level is low, slowly improving clinically Frequent exacerbations of COPD requiring frequent admissions, most recent discharge 11/30/2022 Oxygen dependent, steroid dependent chronic obstructive pulmonary disease with history of multiple bronchoscopies, most recent in August 2022 Former smoker Hypertension Hyperlipidemia History of hearing disorder History of diverticular disease Schatzki's ring status post balloon dilatation in June 2022 Plan: Clinically improving The esophageal dysmotility and the hypertrophy of the cervical esophageal muscles will be doubtful done outpatient basis. The patient is also known to have a Schatzki's ring The patient was discharged home on Trelegy Ellipta one inhalation a day, prednisone burst taper with a maintenance of prednisone 10 mg by mouth daily later stage. We'll continue DuoNeb about treatments [id number]. Mucinex DM for cough and congestion. She also has Tessalon Perles. No need for antibiotic therapy. Follow-up with GI. Follow-up with pulmonary on outpatient basis.
--- NOTE | 2023-01-13 14:22 | P.DS ---
Providers Date of admission: 01/09/23 16:28 Expected date of discharge: 01/13/23 Attending physician: Margarito Gutierrez MD Consults: 01/09/23 16:28 Consult Physician Routine Consulting Provider: Buzz Richardson Consult Reason/Comments: copd, pneumonia Do you want consulting provider notified?: Yes 01/12/23 11:00 Consult Physician Routine Consulting Provider: Meenu Lehman Consult Reason/Comments: esophageal stricture Do you want consulting provider notified?: Yes Primary care physician: Po Winchester MD Hospital Course: 87-year-old woman with medical history of asthma/COPD on home oxygen, hypertension, hyperlipidemia, osteoarthritis presented to the ER with worsening shortness of breath. In the emergency room, patient was afebrile, 128/64, heart rate 110, 95% on 2 L nasal pain. CBC shows leukocytosis to 11.3, otherwise unremarkable basic metabolic panel shows potassium of 3.3, CO2 of 35. Liver function tests showed total protein of 5.9, albumin 3.4. Influenza A, B Bev, Covid were negative. Chest x-ray shows normal-sized heart, hyperinflation with flattening of the diaphragms, bilateral opacities in the lower lobes concerning for pneumonia versus edema. Case was discussed with emergency room provider decision was made to admit the patient to the hospital for further evaluation. Patient was started on bronchodilators and Solu-Medrol IV. Pulmonology was consulted for further management of this patient. She received azithromycin and Rocephin for concerns of community acquired pneumonia. GI was consulted with regard to her dysphagia and barium swallow was ordered. Barium swallow showed presbyesophagus. 01/12 Patient was seen and examined. She reports continued shortness of breath. She reports difficulty swallowing. GI was consulted with regard to her dysphagia and barium swallow was ordered. Barium swallow showed presbyesophagus. BP 129/67 P 99 RR 17 T 98.9F 94% on 2L NC. 01/13 Patient was seen and examined. She reports stable breathing. She has no other complaints looking forward to going home. She will be discharged on a slow Prednisone taper along with Levaquin for 3 more days to complete a total of 7 days antibiotics. Advised to follow up with Dr. Gilbert and Dr. Lehman within 1 week of discharge. Pertient studies include CXR, barium swallow. General: non toxic, no distress, appears at stated age Derm: warm, dry Head: atraumatic, normocephalic, symmetric Eyes: EOMI, no lid lag, anicteric sclera Cardiovascular: Normal S1 S2, no murmur Lungs: Decreased BS bilateral, no rhonchi, no rales , no accessory muscle use Ext: no gross muscle atrophy, no edema, no contractures Neuro: no focal neuro deficits Psych: Alert, oriented, appropriate affect Discharge Diagnosis: Asthma/COPD exacerbation Pulmonary opacities, concerning for pneumonia, predominantly reticular in nature Dysphagia Hypertension Hyperlipidemia Osteoarthritis This complex discharge took 35 minutes to complete. Patient Condition at Discharge: Stable Plan - Discharge Summary New Discharge Prescriptions: New Levofloxacin [Levaquin] 500 mg PO DAILY 3 Days #3 tab predniSONE See Taper PO DIRECTED #30 tab Continue Losartan Potassium 100 mg PO DAILY Fluticasone/Umeclidin/Vilanter [Trelegy Ellipta 100-62.5-25] 1 puff INHALATION RT-DAILY Metoprolol Succinate (ER) [Toprol XL] 25 mg PO DAILY Albuterol Inhaler [Ventolin Hfa Inhaler] 2 puff INHALATION RT-Q4H PRN #1 each PRN Reason: Shortness Of Breath Ipratropium-Albuterol Nebulize [Duoneb 0.5 mg-3 mg/3 ml Soln] 3 ml INHALATION RT-Q2H PRN each PRN Reason: Shortness Of Breath Or Wheezing predniSONE 10 mg PO DAILY #90 tab Benzonatate [Tessalon Perle] 200 mg PO TID Doxycycline [Vibramycin] 100 mg PO BID 7 Days #14 cap Rosuvastatin [Crestor] 10 mg PO HS Albuterol Nebulized [Ventolin Nebulized] 2.5 mg INHALATION RT-QID Ipratropium-Albuterol Nebulize [Duoneb 0.5 mg-3 mg/3 ml Soln] 3 ml INHALATION RT-Q4H Acetaminophen Tab [Tylenol] 650 mg PO Q6HR PRN tab PRN Reason: Fever And/ Or Pain dilTIAZem HCL [Cardizem CD] 120 mg PO HS hydroCHLOROthiazide [Hydrodiuril] 25 mg PO DAILY #90 tab Prednisolone Acetate/Pf [Prednisolone Acet 1% Eye Drop] 1 drop BOTH EYES QID Benzocaine/Menthol Lozeng [Cepacol lozenge] 1 lozenge MUCOUS MEM Q4HR PRN PRN Reason: Sore Throat Discharge Medication List Losartan Potassium 100 mg PO DAILY 10/30/14 [History] Rosuvastatin [Crestor] 10 mg PO HS 10/20/21 [History] Albuterol Nebulized [Ventolin Nebulized] 2.5 mg INHALATION RT-QID 11/07/21 [History] Fluticasone/Umeclidin/Vilanter [Trelegy Ellipta 100-62.5-25] 1 puff INHALATION RT-DAILY 05/14/22 [History] Ipratropium-Albuterol Nebulize [Duoneb 0.5 mg-3 mg/3 ml Soln] 3 ml INHALATION RT-Q4H 05/14/22 [History] Metoprolol Succinate (ER) [Toprol XL] 25 mg PO DAILY 05/14/22 [History] Albuterol Inhaler [Ventolin Hfa Inhaler] 2 puff INHALATION RT-Q4H PRN #1 each 05/19/22 [Rx] Acetaminophen Tab [Tylenol] 650 mg PO Q6HR PRN tab 06/19/22 [Rx] Ipratropium-Albuterol Nebulize [Duoneb 0.5 mg-3 mg/3 ml Soln] 3 ml INHALATION RT-Q2H PRN each 07/27/22 [Rx] dilTIAZem HCL [Cardizem CD] 120 mg PO HS 09/26/22 [History] hydroCHLOROthiazide [Hydrodiuril] 25 mg PO DAILY #90 tab 09/30/22 [Rx] predniSONE 10 mg PO DAILY #90 tab 09/30/22 [Rx] Benzonatate [Tessalon Perle] 200 mg PO TID 11/27/22 [History] Doxycycline [Vibramycin] 100 mg PO BID 7 Days #14 cap 11/30/22 [Rx] Benzocaine/Menthol Lozeng [Cepacol lozenge] 1 lozenge MUCOUS MEM Q4HR PRN 01/09/23 [History] Prednisolone Acetate/Pf [Prednisolone Acet 1% Eye Drop] 1 drop BOTH EYES QID 01/09/23 [History] Levofloxacin [Levaquin] 500 mg PO DAILY 3 Days #3 tab 01/13/23 [Rx] predniSONE See Taper PO DIRECTED #30 tab 01/13/23 [Rx] Follow up Appointment(s)/Referral(s): [facility] [NON-STAFF] - As Needed (Please call [facility] to see if they have alternate carrying cases for your oxygen. ) Po Winchester MD [Primary Care Provider] - 01/14/23 1:00 pm Meenu Lehman MD [STAFF PHYSICIAN] - 01/19/23 12:00 pm Da Gilbert MD [STAFF PHYSICIAN] - 01/20/23 1:15 pm Patient Instructions/Handouts: COPD (Chronic Obstructive Pulmonary Disease) (DC), Pneumonia (DC) Discharge Disposition: HOME SELF-CARE
--- NOTE | 2023-01-13 16:54 | P.PN ---
Subjective Progress Note Date: 01/13/23 Principal diagnosis: Dysphagia Patient was seen and examined today as a follow-up for dysphagia. She denies any abdominal pain, nausea or vomiting. She's been able to eat without any difficulty swallowing. Yesterday she underwent barium swallow. Findings of presbyesophagus with moderate to severe esophageal dysmotility without any evidence of esophageal stricture. Results were discussed with patient. Plan is for discharge home today. She will follow up with gastroenterology in 1-2 months. Objective - Vital Signs Vital signs: Vital Signs Temp 97.8 F 01/13/23 06:48 Pulse 70 01/13/23 09:58 Resp 16 01/13/23 06:48 BP 156/79 01/13/23 06:48 Pulse Ox 96 01/13/23 09:40 FiO2 Intake & Output 01/12/23 01/13/23 01/13/23 18:59 06:59 18:59 Other: # Voids 2 3 1 - Exam General appearance: The patient is alert, oriented, appears in no acute distress. HET: Head is normocephalic and atraumatic. Conjunctiva pink. Sclera anicteric. Neck: Supple without lymphadenopathy. Abdomen: Soft, nontender, nondistended with bowel sounds. No guarding or rigidity. Extremities: Normal skin color and turgor. No pedal edema Skin: No rashes, no jaundice Neurological: No focal deficits. Alert and oriented. - Labs CBC & Chem 7: 01/10/23 06:04 01/10/23 06:04 Assessment and Plan (1) Dysphagia Narrative/Plan: A 7-year-old female with history of dysphagia and Schatzki's ring status post esophageal dilation in June 2022. Patient is actually admitted for shortness of breath with COPD exacerbation with acute hypoxic respiratory failure. Patient is not having any difficulty swallowing if she takes it is time to chew her food well and take small bites. Will plan on doing barium swallow. No plans at this time for upper endoscopy due to her current respiratory status. If findings of esophageal stricture can consider outpatient endoscopy with dilation once respiratory status improves. Esophagram performed with no evidence of esophageal stricture, evidence of presbyesophagus with moderate to severe esophageal dysmotility. Discuss with patient very important to eat small meals, cut up food well and chew well before swallowing. No indication for any endoscopy Status: Acute Code(s): R13.10 - DYSPHAGIA, UNSPECIFIED SNOMED Code(s): 95085626 (2) Acute respiratory failure with hypoxia Status: Acute Code(s): J96.01 - ACUTE RESPIRATORY FAILURE WITH HYPOXIA SNOMED Code(s): 14713463 (3) COPD (chronic obstructive pulmonary disease) Status: Acute Code(s): J44.9 - CHRONIC OBSTRUCTIVE PULMONARY DISEASE, UNSPECIFIED SNOMED Code(s): 65211936 (4) COPD exacerbation Status: Acute Code(s): J44.1 - CHRONIC OBSTRUCTIVE PULMONARY DISEASE W (ACUTE) EXACERBATION SNOMED Code(s): 780946333 Plan: 1. Continue symptomatic and supportive care 2. Continue with augmentation from pulmonology 3. Esophagram ordered and reviewed. No evidence of esophageal stricture 4. Discussed with patient importance of taking small bites, chewing food well before swallowing 5. No indication for any endoscopic evaluation. Patient to follow-up with [facility] in 1-2 months. Thank you for this consultation, we will continue to follow. Dr. Haroldo Lehman I agree with the dictator's note, documented as a scribe by Josee Elizondo.
== END 2023-01-13 14:13 | disposition home or self-care (01) ==
LOC: EC 12:45 → 4SSUR 16:28
PROVIDERS: ADMIT Student in an Organized Health Care Education/Training Program; ATTEND Student in an Organized Health Care Education/Training Program
DX: J44.1 Chronic obstructive pulmonary disease with (acute) exacerbation (principal); J96.21 Acute and chronic respiratory failure with hypoxia; J45.901 Unspecified asthma with (acute) exacerbation; K22.4 Dyskinesia of esophagus; K22.2 Esophageal obstruction; E87.6 Hypokalemia; K22.89 Other specified disease of esophagus; K44.9 Diaphragmatic hernia without obstruction or gangrene; K57.90 Diverticulosis of intestine, part unspecified, without perforation or abscess without bleeding; I10 Essential (primary) hypertension; K76.89 Other specified diseases of liver; Z99.81 Dependence on supplemental oxygen; D72.829 Elevated white blood cell count, unspecified; E78.5 Hyperlipidemia, unspecified; M19.90 Unspecified osteoarthritis, unspecified site; H91.90 Unspecified hearing loss, unspecified ear; I25.2 Old myocardial infarction; H93.19 Tinnitus, unspecified ear; Z20.822 Contact with and (suspected) exposure to COVID-19; Z79.51 Long term (current) use of inhaled steroids; Z79.52 Long term (current) use of systemic steroids; Z79.899 Other long term (current) drug therapy; Z88.8 Allergy status to other drugs, medicaments and biological substances; Z87.11 Personal history of peptic ulcer disease; Z90.49 Acquired absence of other specified parts of digestive tract; Z90.710 Acquired absence of both cervix and uterus; Z96.651 Presence of right artificial knee joint; Z86.010 Personal history of colon polyps; Z87.01 Personal history of pneumonia (recurrent); Z86.11 Personal history of tuberculosis; Z87.891 Personal history of nicotine dependence; Z87.19 Personal history of other diseases of the digestive system; Z80.0 Family history of malignant neoplasm of digestive organs; Z82.69 Family history of other diseases of the musculoskeletal system and connective tissue; Z80.1 Family history of malignant neoplasm of trachea, bronchus and lung; Z80.42 Family history of malignant neoplasm of prostate; Z82.5 Family history of asthma and other chronic lower respiratory diseases; Z82.49 Family history of ischemic heart disease and other diseases of the circulatory system
CPT/HCPCS: 96376 ×5; 96366 ×4; 96367; 96372 ×5; 96365; 96375; 99285; 36415; 94640 ×10; 94760 ×4; 80053; 80048; 83735; 85025 ×2; 84145; 87636; 74220; 71046; G0378 ×5; J2920 ×5; J2930; J0456 ×4; J0696 ×5; J1644 ×5; 93005

== ENCOUNTER 2023-04-25 07:24 | Inpatient (IN) | payer MEDICARE, BC ==
[2023-04-25] MEDS ORDERED: SODIUM CHLORIDE 0.9% 500 ML 500 ML IV STA (07:44)
[2023-04-25] MEDS ORDERED: IPRATROPIUM 0.5 MG/2.5 ML NEBU INHALATION STA (07:44)
[2023-04-25] MEDS ORDERED: ALBUTEROL NEBULIZED 2.5 MG/3 ML INHALATION STA (07:44)
[2023-04-25] MEDS ORDERED: methylPREDNISolone SOD SUCCI 125 MG/2 ML VIAL IV STA (07:44)
--- NOTE | 2023-04-25 07:55 | ED ---
General Adult HPI - General Chief complaint: Shortness of Breath Stated complaint: Chest Pain,SOB Time Seen by Provider: 04/25/23 07:30 Source: patient, EMS, RN notes reviewed, old records reviewed Mode of arrival: EMS Limitations: physical limitation - History of Present Illness Initial comments: This is an 87-year-old female who presents emergency Department with a past medical history significant for COPD. Patient states the last 3 days been havin g difficulty breathing and cough with sputum production. Patient states his been worsening but she was hoping she can get through it at home. Patient states this morning she was so short of breath and she decided come to the emergency department. Patient denies any fever chills per patient states this chest tightness but no pain. Patient states the tightness is typical of her COPD. Patient denies any abdominal pain. Patient denies any back pain. Patient has a headache patient denies numbness weakness. - Related Data Home Medications Medication Instructions Recorded Confirmed Losartan Potassium 100 mg PO DAILY 10/30/14 01/09/23 Rosuvastatin [Crestor] 10 mg PO HS 10/20/21 01/09/23 Albuterol Nebulized [Ventolin 2.5 mg INHALATION RT-QID 11/07/21 01/09/23 Nebulized] Fluticasone/Umeclidin/Vilanter 1 puff INHALATION RT-DAILY 05/14/22 01/09/23 [Trelegy Ellipta 100-62.5-25] Ipratropium-Albuterol Nebulize 3 ml INHALATION RT-Q4H 05/14/22 01/09/23 [Duoneb 0.5 mg-3 mg/3 ml Soln] Metoprolol Succinate (ER) [Toprol 25 mg PO DAILY 05/14/22 01/09/23 XL] dilTIAZem HCL [Cardizem CD] 120 mg PO HS 09/26/22 01/09/23 Benzonatate [Tessalon Perle] 200 mg PO TID 11/27/22 01/09/23 Benzocaine/Menthol Lozeng [Cepacol 1 lozenge MUCOUS MEM Q4HR PRN 01/09/23 01/09/23 lozenge] Prednisolone Acetate/Pf 1 drop BOTH EYES QID 01/09/23 01/09/23 [Prednisolone Acet 1% Eye Drop] Previous Rx's Medication Instructions Recorded Albuterol Inhaler [Ventolin Hfa 2 puff INHALATION RT-Q4H PRN #1 05/19/22 Inhaler] each Acetaminophen Tab [Tylenol] 650 mg PO Q6HR PRN tab 06/19/22 Ipratropium-Albuterol Nebulize 3 ml INHALATION RT-Q2H PRN each 07/27/22 [Duoneb 0.5 mg-3 mg/3 ml Soln] hydroCHLOROthiazide [Hydrodiuril] 25 mg PO DAILY #90 tab 09/30/22 predniSONE 10 mg PO DAILY #90 tab 09/30/22 Doxycycline [Vibramycin] 100 mg PO BID 7 Days #14 cap 11/30/22 Levofloxacin [Levaquin] 500 mg PO DAILY 3 Days #3 tab 01/13/23 predniSONE See Taper PO DIRECTED #30 tab 01/13/23 Allergies Allergy/AdvReac Type Severity Reaction Status Date / Time hydrocodone bitartrate AdvReac states Verified 04/25/23 07:33 [From Vicodin] "doesn't make me feel good" Review of Systems ROS Statement: Those systems with pertinent positive or pertinent negative responses have been documented in the HPI. ROS Other: All systems not noted in ROS Statement are negative. 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 Last Myocardial Infarction Date:: 40 years ago History of Any Multi-Drug Resistant Organisms: None Reported Past Surgical History: Cholecystectomy, Hysterectomy, Orthopedic Surgery Additional Past Surgical History / Comment(s): KNEE arthroscopy, COLONOSCOPY- LARGE POLYP REMOVED, EGD, cataracts, Right TKA (10/21/21) Past Anesthesia/Blood Transfusion Reactions: No Reported Reaction Additional Past Anesthesia/Blood Transfusion Reaction / Comment(s): No hx blood transfusion. Past Psychological History: No Psychological Hx Reported Smoking Status: Former smoker - Past Family History Sister(s) Family Medical History: Cancer Additional Family Medical History / Comment(s): #1 sister colon cancer, # 2 sister lung cancer. Father Family Medical History: Cancer Additional Family Medical History / Comment(s): Prostate cancer. Mother Family Medical History: Asthma Additional Family Medical History / Comment(s): Heart problems. Son(s) Additional Family Medical History / Comment(s): SCLERODERMA General Exam - General Exam Comments Initial Comments: GENERAL: Patient is well-developed and well-nourished. Patient is nontoxic and well- hydrated and is in moderate distress. ENT: Neck is soft and supple. No significant lymphadenopathy is noted. Oropharynx is clear. Moist mucous membranes. Neck has full range of motion without eliciting any pain. EYES: The sclera were anicteric and conjunctiva were pink and moist. Extraocular movements were intact and pupils were equal round and reactive to light. E yelids were unremarkable. PULMONARY: Patient is a very wheezing diffusely CARDIOVASCULAR: There is a regular rate and rhythm without any murmurs gallops or rubs. ABDOMEN: Soft and nontender with normal bowel sounds. SKIN: Skin is clear with no lesions or rashes and otherwise unremarkable. NEUROLOGIC: Patient is alert and oriented x3. Cranial nerves II through XII are grossly intact. Motor and sensory are also intact. Normal speech, volume and content. Symmetrical smile. MUSCULOSKELETAL: Normal extremities with adequate strength and full range of motion. LYMPHATICS: No significant lymphadenopathy is noted PSYCHIATRIC: Normal psychiatric evaluation. Limitations: physical limitation Course Vital Signs 04/25/23 04/25/23 04/25/23 07:28 07:38 07:51 Temperature 98.0 F Pulse Rate 121 H 114 H Respiratory 34 H 36 H Rate Blood Pressure 151/90 O2 Sat by Pulse 100 Oximetry 04/25/23 04/25/23 04/25/23 08:21 09:00 10:00 Temperature Pulse Rate 104 H 105 H 101 H Respiratory 24 24 Rate Blood Pressure 128/71 130/70 O2 Sat by Pulse 99 100 Oximetry Medical Decision Making - Medical Decision Making EKG was interpreted by myself. EKG shows a sinus tachycardia at 121 bpm RI interval 143 QRS is 70 QT interval 308 QTC is 380. Patient's EKG shows no ST segment elevation or depression. It's a poor quality EKG. Was pt. sent in by a medical professional or institution (, PA, ENROLLMENT NURSE, urgent care, hospital, or [facility]...) When possible be specific @ -No Did you speak to anyone other than the patient for history (EMS, parent, family, police, friend...)? What history was obtained from this source @ -No Did you review nursing and triage notes (agree or disagree)? Why? @ -I reviewed and agree with nursing and triage notes Were old charts reviewed (outside hosp., previous admission, EMS record, old EKG, old radiological studies, urgent care reports/EKG's, [facility] records)? Report findings @ -I reviewed prior charts in prior lab work. Differential Diagnosis (chest pain, altered mental status, abdominal pain women, abdominal pain men, vaginal bleeding, weakness, fever, dyspnea, syncope, headache, dizziness, GI bleed, back pain, seizure, CVA, palpatations, mental health, musculoskeletal)? @ -Differential Dyspnea: Coronary syndrome, arrhythmia, tamponade, asthma, COPD, pulmonary embolism, pneumonia, pneumothorax, pulmonary effusion, anaphylaxis, diabetic ketoacidosis, flailed chest, pulmonary contusion, diaphragmatic rupture, anemia, neuromuscular, this is not meant to be an all-inclusive list. EKG interpreted by me (3pts min.). @ -As above X-rays interpreted by me (1pt min.). @ -Shows some faint infiltrates bilaterally CT interpreted by me (1pt min.). @ -None done U/S interpreted by me (1pt. min.). @ -None done What testing was considered but not performed or refused? (CT, X-rays, U/S, labs)? Why? @ -None What meds were considered but not given or refused? Why? @ -None Did you discuss the management of the patient with other professionals (professionals i.e. , PA, ENROLLMENT NURSE, lab, RT, psych nurse, social service liaison, residential construction instructor, teacher, building drafting officer, case managers)? Give summary @ -I spoke with Dr. Gutierrez and he agreed to admit the patient Was smoking cessation discussed for >3mins.? @ -No Was critical care preformed (if so, how long)? @ -No Were there social determinants of health that impacted care today? How? (H omelessness, low income, unemployed, alcoholism, drug addiction, transportation, low edu. Level, literacy, decrease access to med. care, prison, rehab)? @ -No Was there de-escalation of care discussed even if they declined (Discuss DNR or withdrawal of care, Hospice)? DNR status @ -No What co-morbidities impacted this encounter? (DM, HTN, Smoking, COPD, CAD, Cancer, CVA, ARF, Chemo, Hep., AIDS, mental health diagnosis, sleep apnea, morbid obesity)? @ -COPD Was patient admitted / discharged? Hospital course, mention meds given and route, prescriptions, significant lab abnormalities, going to OR and other pertinent info. @ -Patient is given multiple breathing treatments emergency department already had steroids from EMS pre-patient was given antibiotics for the potential infiltrate. I spoke with from [facility] and he agreed to admit the patient admitted the patient and consult pulmonary Undiagnosed new problem with uncertain prognosis? @ -No Drug Therapy requiring intensive monitoring for toxicity (Heparin, Nitro, Insulin, Cardizem)? @ -No Were any procedures done? @ -No Diagnosis/symptom? @ -COPD exacerbation Acute, or Chronic, or Acute on Chronic? @ -Acute Uncomplicated (without systemic symptoms) or Complicated (systemic symptoms)? @ -Complicated Side effects of treatment? @ -No Exacerbation, Progression, or Severe Exacerbation? @ -No Poses a threat to life or bodily function? How? (Chest pain, [place], [place], pneumonia, PE, COPD, DKA, ARF, appy, cholecystitis, CVA, Diverticulitis, Homicidal, Suicidal, threat to staff... and all critical care pts) @ -Yes this could lead to hypoxia and an organ dysfunction - Lab Data Result diagrams: 04/25/23 07:46 04/25/23 07:46 Lab Results 04/25/23 04/25/23 04/25/23 Range/Units 07:46 07:46 07:46 WBC 12.0 H (3.8-10.6) k/uL RBC 4.47 (3.80-5.40) m/uL Hgb 14.3 (11.4-16.0) gm/dL Hct 42.9 (34.0-46.0) % MCV 96.1 (80.0-100.0) fL MCH 32.1 (25.0-35.0) pg MCHC 33.4 (31.0-37.0) g/dL RDW 12.8 (11.5-15.5) % Plt Count 358 (150-450) k/uL MPV 8.4 Neutrophils % 73 % Lymphocytes % 16 % Monocytes % 5 % Eosinophils % 6 % Basophils % 1 % Neutrophils # 8.7 H (1.3-7.7) k/uL Lymphocytes # 1.9 (1.0-4.8) k/uL Monocytes # 0.6 (0-1.0) k/uL Eosinophils # 0.7 (0-0.7) k/uL Basophils # 0.1 (0-0.2) k/uL PT (10.0-12.5) sec INR (<1.2) APTT (22.0-30.0) sec Sodium 142 (137-145) mmol/L Potassium 3.8 (3.5-5.1) mmol/L Chloride 102 (98-107) mmol/L Carbon Dioxide 34 H (22-30) mmol/L Anion Gap 6 mmol/L BUN 14 (7-17) mg/dL Creatinine 0.63 (0.52-1.04) mg/dL Est GFR (CKD-EPI)AfAm >90 (>60 ml/min/1.73 sqM) Est GFR (CKD-EPI)NonAf 82 (>60 ml/min/1.73 sqM) Glucose 99 (74-99) mg/dL Plasma Lactic Acid Jace 0.9 (0.7-2.0) mmol/L Calcium 8.8 (8.4-10.2) mg/dL Magnesium 2.0 (1.6-2.3) mg/dL Total Bilirubin 0.7 (0.2-1.3) mg/dL AST 36 (14-36) U/L ALT 31 (4-34) U/L Alkaline Phosphatase 63 (38-126) U/L Troponin I (0.000-0.034) ng/mL Total Protein 6.3 (6.3-8.2) g/dL Albumin 3.9 (3.5-5.0) g/dL 04/25/23 04/25/23 Range/Units 07:46 09:22 WBC (3.8-10.6) k/uL RBC (3.80-5.40) m/uL Hgb (11.4-16.0) gm/dL Hct (34.0-46.0) % MCV (80.0-100.0) fL MCH (25.0-35.0) pg MCHC (31.0-37.0) g/dL RDW (11.5-15.5) % Plt Count (150-450) k/uL MPV Neutrophils % % Lymphocytes % % Monocytes % % Eosinophils % % Basophils % % Neutrophils # (1.3-7.7) k/uL Lymphocytes # (1.0-4.8) k/uL Monocytes # (0-1.0) k/uL Eosinophils # (0-0.7) k/uL Basophils # (0-0.2) k/uL PT 10.6 (10.0-12.5) sec INR 1.0 (<1.2) APTT 22.8 (22.0-30.0) sec Sodium (137-145) mmol/L Potassium (3.5-5.1) mmol/L Chloride (98-107) mmol/L Carbon Dioxide (22-30) mmol/L Anion Gap mmol/L BUN (7-17) mg/dL Creatinine (0.52-1.04) mg/dL Est GFR (CKD-EPI)AfAm (>60 ml/min/1.73 sqM) Est GFR (CKD-EPI)NonAf (>60 ml/min/1.73 sqM) Glucose (74-99) mg/dL Plasma Lactic Acid Jace (0.7-2.0) mmol/L Calcium (8.4-10.2) mg/dL Magnesium (1.6-2.3) mg/dL Total Bilirubin (0.2-1.3) mg/dL AST (14-36) U/L ALT (4-34) U/L Alkaline Phosphatase (38-126) U/L Troponin I 0.015 (0.000-0.034) ng/mL Total Protein (6.3-8.2) g/dL Albumin (3.5-5.0) g/dL Critical Care Time Critical Care Time: Yes Total Critical Care Time: 35 Disposition Clinical Impression: Acute exacerbation of chronic obstructive pulmonary disease (COPD) Disposition: ADMITTED IP TO THIS HOSP Referrals: Ashley Ku MD [STAFF PHYSICIAN] - 1-2 days Time of Disposition: 10:31
[2023-04-25 08:03] LABS: Basophils # (A) 0.1 k/uL (0-0.2); Basophils % (A) 1 %; Eosinophils # (A) 0.7 k/uL (0-0.7); Eosinophils % (A) 6 %; HCT 42.9 % (34.0-46.0); HGB 14.3 gm/dL (11.4-16.0); Lymphocytes # (A) 1.9 k/uL (1.0-4.8); Lymphocytes % (A) 16 %; MCH 32.1 pg (25.0-35.0); MCHC 33.4 g/dL (31.0-37.0); MCV 96.1 fL (80.0-100.0); Mean Platelet Volume 8.4; Monocytes # (A) 0.6 k/uL (0-1.0); Monocytes % (A) 5 %; Neutrophils # (A) 8.7 k/uL (1.3-7.7); Neutrophils % (A) 73 %; Platelet Count 358 k/uL (150-450); RBC 4.47 m/uL (3.80-5.40); RDW 12.8 % (11.5-15.5)
[2023-04-25 08:19] LABS: ALT 31 U/L (4-34); AST 36 U/L (14-36); African American GFR (CKD) >90 (>60 ml/min/1.73 sqM); Albumin 3.9 g/dL (3.5-5.0); Alkaline Phosphatase 63 U/L (38-126); Anion Gap 6 mmol/L; Blood Urea Nitrogen 14 mg/dL (7-17); Calcium 8.8 mg/dL (8.4-10.2); Carbon Dioxide 34 mmol/L (22-30); Chloride 102 mmol/L (98-107); Glucose 99 mg/dL (74-99); Non-African American GFR(CKD) 82 (>60 ml/min/1.73 sqM); Potassium 3.8 mmol/L (3.5-5.1); Sodium 142 mmol/L (137-145); Total Bilirubin 0.7 mg/dL (0.2-1.3); Total Protein 6.3 g/dL (6.3-8.2)
--- NOTE | 2023-04-25 08:43 | XR ---
EXAMINATION TYPE: XR chest 2V DATE OF EXAM: 04/25/2023 8:37 AM COMPARISON: Chest radiographs from 01/09/2023 TECHNIQUE: XR chest 2V Frontal and lateral views of the chest. CLINICAL INDICATION:Female, 87 years old with history of difficulty breathing; FINDINGS: Lungs/Pleura: There is flattening of the diaphragm with increased lucency of the lungs. No evidence o f pneumothorax or pleural effusion. Bibasilar patchy airspace opacities. Pulmonary vascularity: Unremarkable. Heart/mediastinum: Cardiomediastinal silhouette is unremarkable. Atherosclerotic calcifications are seen in the aorta. Musculoskeletal: Multiple level degenerative disc disease changes seen throughout the spine. Dextro s coliotic curvature of the thoracic spine. IMPRESSION: Background COPD changes with bibasilar patchy airspace opacities which may represent atelectasis/fibr otic changes versus infiltrates.
[2023-04-25 09:42] LABS: Partial Thromboplastin Time 22.8 sec (22.0-30.0); Prothrombin Time 10.6 sec (10.0-12.5)
[2023-04-25] MEDS ORDERED: NALOXONE 0.4 MG/ML 1 ML VIAL IVP PRN (10:31)
[2023-04-25] MEDS ORDERED: IPRATROPIUM-ALBUTEROL 3 ML NEB INHALATION PRN (10:31)
[2023-04-25] MEDS: IPRATROPIUM-ALBUTEROL 3 ML NEB INHALATION SCH ×3 (11:14→21:32)
[2023-04-25] MEDS: methylPREDNISolone SOD SUCCI 125 MG/2 ML VIAL IV SCH ×3 (11:20→23:35)
--- NOTE | 2023-04-25 11:30 | P.HPIM ---
History of Present Illness H&P Date: 04/25/23 87-year-old female with PMH of COPD on home oxygen, hypertension, dyslipidemia, osteoarthritis presents the ED for worsening shortness of breath. Symptoms have been ongoing for the past 3 days. She reports cough productive of sputum along with shortness of breath and wheezing. This prompted her to come to the ED. In the ED, she underwent extensive evaluation. She was noted to be tachycardic with heart rate in the 100s. She was tachypneic with respiratory rate of 24. Vital signs otherwise stable on 3 L nasal cannula. CBC showed WBC count of 12. INR was 1. CMP showed a bicarb of 34. Lactic acid 0.9. Magnesium 2.0. Troponin 0.015. EKG showed sinus tachycardia with no ST wave changes. Chest x-ray showed bibasilar patchy opacities. Patient is admitted for further management of symptoms. Pertinent positives and negatives as discussed in HPI, a complete review of systems was performed and all other systems are negative. General: non toxic, no distress, appears at stated age Derm: warm, dry Head: atraumatic, normocephalic, symmetric Eyes: EOMI, no lid lag, anicteric sclera Cardiovascular: Tachycardic, no murmur Lungs: Scattered expiratory wheezing bilateral, no rhonchi, no rales , no accessory muscle use Ext: no gross muscle atrophy, no edema, no contractures Neuro: no focal neuro deficits Psych: Alert, oriented, appropriate affect Based on my assessment of this patient, this patient meets a high complexity level of care. Patient has a history of COPD with severe exacerbation or progression of disease which poses a threat to life or bodily function. Asthma/COPD exacerbation Bronchodilators: DuoNeb 0.5mg-3mg/3ml scheduled and as needed for SOB and wheezing. Antibiotics: Augmentin 1 tab PO BID. Steroids: SoluMedrol 60 mg IV Q6H. Supplemental oxygen to maintain O2 > 92%. Pulmonology consult. Pulmonary opacities, concerning for pneumonia, predominantly reticular in n ature: Continue Augmentin. Appears chronic findings. Obtain pro-calcitonin. Check COVID/Flu/RSV. Hypertension Hyperlipidemia Osteoarthritis CODE STATUS: NO CODE DVT Prophylaxis: Lovenox SQ GI Prophylaxis: Protonix PO Designated medical POA if patient is not able to make medical decisions for themselves: Son I have reviewed the following ada accommodation consultant notes: I have reviewed the results of the following tests: CBC, INR, CMP, Lactic acid, Trop. Mag, CXR. I have ordered the following tests: Procal. COVID. I have discussed the care of this patient with the following independent historian: I have independently interpreted the following test below: CXR. 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 Last Myocardial Infarction Date:: 40 years ago History of Any Multi-Drug Resistant Organisms: None Reported Past Surgical History: Cholecystectomy, Hysterectomy, Orthopedic Surgery Additional Past Surgical History / Comment(s): KNEE arthroscopy, COLONOSCOPY- LARGE POLYP REMOVED, EGD, cataracts, Right TKA (10/21/21) Past Anesthesia/Blood Transfusion Reactions: No Reported Reaction Additional Past Anesthesia/Blood Transfusion Reaction / Comment(s): No hx blood transfusion. Past Psychological History: No Psychological Hx Reported Smoking Status: Former smoker - Past Family History Sister(s) Family Medical History: Cancer Additional Family Medical History / Comment(s): #1 sister colon cancer, # 2 sister lung cancer. Father Family Medical History: Cancer Additional Family Medical History / Comment(s): Prostate cancer. Mother Family Medical History: Asthma Additional Family Medical History / Comment(s): Heart problems. Son(s) Additional Family Medical History / Comment(s): SCLERODERMA Medications and Allergies Home Medications Medication Instructions Recorded Confirmed Type Losartan Potassium 100 mg PO DAILY 10/30/14 01/09/23 History Rosuvastatin [Crestor] 10 mg PO HS 10/20/21 01/09/23 History Albuterol Nebulized [Ventolin 2.5 mg INHALATION RT-QID 11/07/21 01/09/23 History Nebulized] Fluticasone/Umeclidin/Vilanter 1 puff INHALATION RT-DAILY 05/14/22 01/09/23 History [Trelegy Ellipta 100-62.5-25] Ipratropium-Albuterol Nebulize 3 ml INHALATION RT-Q4H 05/14/22 01/09/23 History [Duoneb 0.5 mg-3 mg/3 ml Soln] Metoprolol Succinate (ER) [Toprol 25 mg PO DAILY 05/14/22 01/09/23 History XL] Albuterol Inhaler [Ventolin Hfa 2 puff INHALATION RT-Q4H PRN #1 05/19/22 01/09/23 Rx Inhaler] each Acetaminophen Tab [Tylenol] 650 mg PO Q6HR PRN tab 06/19/22 01/09/23 Rx Ipratropium-Albuterol Nebulize 3 ml INHALATION RT-Q2H PRN each 07/27/22 01/09/23 Rx [Duoneb 0.5 mg-3 mg/3 ml Soln] dilTIAZem HCL [Cardizem CD] 120 mg PO HS 09/26/22 01/09/23 History hydroCHLOROthiazide [Hydrodiuril] 25 mg PO DAILY #90 tab 09/30/22 01/09/23 Rx predniSONE 10 mg PO DAILY #90 tab 09/30/22 01/09/23 Rx Benzonatate [Tessalon Perle] 200 mg PO TID 11/27/22 01/09/23 History Doxycycline [Vibramycin] 100 mg PO BID 7 Days #14 cap 11/30/22 01/09/23 Rx Benzocaine/Menthol Lozeng [Cepacol 1 lozenge MUCOUS MEM Q4HR PRN 01/09/2312/13 History lozenge] Prednisolone Acetate/Pf 1 drop BOTH EYES QID 01/09/23 01/09/23 History [Prednisolone Acet 1% Eye Drop] Levofloxacin [Levaquin] 500 mg PO DAILY 3 Days #3 tab 01/13/23 Rx predniSONE See Taper PO DIRECTED #30 tab 01/13/23 Rx Allergies Allergy/AdvReac Type Severity Reaction Status Date / Time hydrocodone bitartrate AdvReac states Verified 04/25/23 07:33 [From Vicodin] "doesn't make me feel good" Physical Exam Vitals: Vital Signs Temp Pulse Resp BP Pulse Ox 04/25/23 10:46 98.7 F 90 24 140/79 99 04/25/23 10:00 101 H 24 130/70 100 04/25/23 09:00 105 H 24 128/71 99 04/25/23 08:21 104 H 04/25/23 07:51 114 H 04/25/23 07:38 36 H 04/25/23 07:28 98.0 F 121 H 34 H 151/90 100 Intake and Output 04/24/23 04/25/23 04/25/23 22:59 06:59 14:59 Other: Weight 72.575 kg Results CBC & Chem 7: 04/25/23 07:46 04/25/23 07:46 Labs: Abnormal Lab Results - Last 24 Hours (Table) 04/25/23 04/25/23 Range/Units 07:46 07:46 WBC 12.0 H (3.8-10.6) k/uL Neutrophils # 8.7 H (1.3-7.7) k/uL Carbon Dioxide 34 H (22-30) mmol/L
[2023-04-25] MEDS: prednisoLONE ACETATE 1% OPHTH DROPS 5 ML BTL BOTH EYES SCH ×3 (12:44→21:28)
[2023-04-25] MEDS ORDERED: SYMBICORT 80-4.5 MCG INHALER INHALATION SCH (20:00)
[2023-04-25] MEDS: AMOXIC-POT CLAV 875-125MG 1 EACH TAB PO SCH (21:28)
[2023-04-25] MEDS: ATORVASTATIN 20 MG TAB PO SCH ×2 (21:28→23:19)
[2023-04-25] MEDS: DILTIAZEM CD 120 MG CAP.ER.24H PO SCH (21:29)
--- NOTE | 2023-04-26 05:20 | P.CNPUL ---
History of Present Illness Consult date: 04/26/23 Requesting physician: Elle Mason Reason for consult: COPD Chief complaint: Shortness of breath and cough History of present illness: I am seeing this patient in consultation today 04/26/2023 for acute COPD exacerbation. 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 She does follow with Dr. Gilbert in the pulmonary office for management of her COPD. She is normally maintained on Trelegy Ellipta, Duo nebs around the clock, and as needed albuterol inhaler. Patient reports progressively worsening ongoing shortness of breath over the last 1-1/2 weeks, and finally came to the emergency room yesterday morning. She also admits associated cough with occasional white to yellow sputum production. She's had chest tightness and wheezing. Denies any hemoptysis or chest pain. Denies fevers. Denies sick contacts. She does state that she recently moved department, and may contribute her exacerbation to dust. Chest x-ray on arrival demonstrated bibasilar patchy airspace opacities which may represent atelectasis/fibrotic changes versus infiltrates. Chest x- ray on arrival showed some mild leukocytosis with a WBC count of 12, hemoglobin 14.3, hematocrit 42.9, platelets 358. BMP was unremarkable on arrival. Troponin 0.015. Negative for influenza, RSV, COVID-19. Afebrile. Patient empirically started on Augmentin. Patient also started on a combination of Symbicort, DuoNeb's, and IV Solu-Medrol. She is currently sitting up in the recliner, on 2 L/m nasal cannula, in no acute distress. She does have a walker at bedside for ambulation. She will be monitored on the general medical floor. Review of Systems REVIEW OF SYSTEMS: CONSTITUTIONAL: Denies any recent significant weight loss or weight gain. EYES: Denies change in vision. EARS, NOSE, MOUTH, THROAT: Denies headaches, denies sore throat. CARDIOVASCULAR: Denies chest pain, palpitations or syncopal episodes. RESPIRATORY: See HPI GASTROINTESTINAL: Denies change in appetite, abdominal pain, nausea and vomiti ng, or diarrhea GENITOURINARY: Denies hematuria, denies infections. MUSKULOSKELETAL: Denies pain, denies swelling. INTEGUMENTARY: Denies rash, denies eczema. NEUROLOGICAL: Denies recent memory loss, no recent seizure activity. PSYCHIATRIC: Denies anxiety, denies depression. 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 Last Myocardial Infarction Date:: 40 years ago History of Any Multi-Drug Resistant Organisms: None Reported Past Surgical History: Cholecystectomy, Hysterectomy, Orthopedic Surgery Additional Past Surgical History / Comment(s): KNEE arthroscopy, COLONOSCOPY- LARGE POLYP REMOVED, EGD, cataracts, Right TKA (10/21/21) Past Anesthesia/Blood Transfusion Reactions: No Reported Reaction Additional Past Anesthesia/Blood Transfusion Reaction / Comment(s): No hx blood transfusion. Smoking Status: Former smoker - Past Family History Sister(s) Family Medical History: Cancer Additional Family Medical History / Comment(s): #1 sister colon cancer, # 2 sister lung cancer. Father Family Medical History: Cancer Additional Family Medical History / Comment(s): Prostate cancer. Mother Family Medical History: Asthma Additional Family Medical History / Comment(s): Heart problems. Son(s) Additional Family Medical History / Comment(s): SCLERODERMA Medications and Allergies Home Medications Medication Instructions Recorded Confirmed Type Losartan Potassium 100 mg PO DAILY 10/30/14 04/25/23 History Albuterol Nebulized [Ventolin 2.5 mg INHALATION RT-QID 11/07/21 04/25/23 History Nebulized] Albuterol Inhaler [Ventolin Hfa 2 puff INHALATION RT-Q4H PRN #1 05/19/22 04/25/23 Rx Inhaler] each dilTIAZem HCL [Cardizem CD] 120 mg PO HS 09/26/22 04/25/23 History hydroCHLOROthiazide [Hydrodiuril] 25 mg PO DAILY #90 tab 09/30/22 04/25/23 Rx predniSONE 10 mg PO DAILY #90 tab 09/30/22 04/25/23 Rx Acetaminophen/Diphenhydramine 1 tab PO HS 04/25/23 04/25/23 History [Tylenol PM 500-25mg] Cetirizine HCl/Pseudoephedrine 1 tab PO DAILY 04/25/23 04/25/23 History [Zyrtec-D ER 5 mg-120 mg Tablet] Metoprolol Succinate (ER) [Toprol 50 mg PO DAILY 04/25/23 04/25/23 History Xl] Zolpidem [Ambien] 2.5 mg PO HS PRN 04/25/23 04/25/23 History Allergies Allergy/AdvReac Type Severity Reaction Status Date / Time hydrocodone bitartrate AdvReac states Verified 04/25/23 14:40 [From Vicodin] "doesn't make me feel good" Physical Exam Vitals: Vital Signs Temp Pulse Pulse Resp BP BP Pulse Ox 04/26/23 01:09 98 F 110 H 18 176/80 90 L 04/25/23 21:44 109 H 04/25/23 21:33 107 H 04/25/23 20:00 110 H 04/25/23 19:06 97.8 F 108 H 18 154/80 97 04/25/23 15:50 110 H 04/25/23 15:40 116 H 04/25/23 14:51 97.6 F 114 H 16 147/72 97 04/25/23 12:12 98.6 F 111 H 18 132/90 96 04/25/23 11:26 108 H 04/25/23 11:21 111 H 24 128/82 100 04/25/23 11:16 112 H 04/25/23 10:46 98.7 F 90 24 140/79 99 04/25/23 10:00 101 H 24 130/70 100 04/25/23 09:00 105 H 24 128/71 99 04/25/23 08:21 104 H 04/25/23 07:51 114 H 04/25/23 07:38 36 H 04/25/23 07:28 98.0 F 121 H 34 H 151/90 100 Intake and Output 04/25/23 04/25/23 04/26/23 14:59 22:59 06:59 Intake Total 1080 Output Total 300 Balance 780 Intake: Oral 1080 Output: Urine 300 Other: Voiding Method External Catheter Weight 72.575 kg GENERAL EXAM: Alert, 87-year-old -[place] female, comfortable in no apparent distress. HEAD: Normocephalic and atraumatic EYES: Normal reaction of pupils, equal size. NOSE: Clear with pink turbinates. THROAT: No erythema or exudates. NECK: No masses, no JVD. CHEST: No chest wall deformity. LUNGS: Equal air entry with diffuse expiratory wheezes heard throughout. On 2 L/m nasal cannula. No conversational dyspnea or accessory muscle use.. CVS: S1 and S2 normal with no audible murmur, regular rhythm. No extra heart sounds ABDOMEN: No hepatosplenomegaly, active bowel sounds, no guarding or rigidity. SPINE: No scoliosis or deformity SKIN: No rashes CENTRAL NERVOUS SYSTEM: No focal deficits, tone is normal in all 4 extremities. EXTREMITIES: There is no peripheral edema, clubbing, or cyanosis. Peripheral pulses are intact. Results - Laboratory Findings CBC and BMP: 04/25/23 07:46 04/25/23 07:46 PT/INR, D-dimer PT 10.6 sec (10.0-12.5) 04/25/23 09:22 INR 1.0 (<1.2) 04/25/23 09:22 Abnormal lab findings: Abnormal Labs 04/25/23 04/25/23 07:46 07:46 WBC 12.0 H Neutrophils # 8.7 H Carbon Dioxide 34 H - Diagnostic Findings Chest x-ray: image reviewed Assessment and Plan Assessment: Acute on chronic hypoxemic respiratory failure, secondary to acute COPD exacerbation. Chest x-ray on arrival demonstrated bibasilar patchy airspace opacities which may represent atelectasis/reported changes versus infiltrates. Negative for influenza, RSV, COVID-19. Mild leukocytosis Hypertension Hyperlipidemia History of severe oxygen dependent COPD Schatzki' ring status/post balloon dilation Remote ex-smoker Plan: Patient's medications, labs and chest x-ray reviewed Currently on 2 L/m nasal cannula, which she wears at home Continue combination of Symbicort inhaler, DuoNeb, and IV Solu-Medrol Continue empiric antibiotics and check procalcitonin level Lovenox for DVT prophylaxis and Protonix for GI prophylaxis. We will continue to follow. I have personally seen and examined the patient, performed the documentation and the assessment and plan as written. Number of minutes spent on the visit:20 This is a joint evaluation that was done along with the MANAGER SPORTS and this evaluation was done in > 30 min. She has advaned COPD and she is 02 and steroids dependent and she is admitted for COPD exacerbation. She has been on Trelegy as maintenance and she has been on prednisone 10 mg. She has another exacerbation and she is admitted accordingly. She is stable for now Time with Patient: Greater than 30
[2023-04-26] MEDS: PANTOPRAZOLE 40 MG TABLET PO SCH (05:47)
[2023-04-26] MEDS: methylPREDNISolone SOD SUCCI 125 MG/2 ML VIAL IV SCH ×3 (05:47→18:41)
[2023-04-26] MEDS ORDERED: ACETAMINOPHEN TAB 325 MG TAB PO PRN (06:51)
[2023-04-26] MEDS: hydroCHLOROthiazide 25 MG TAB PO SCH (08:30)
[2023-04-26] MEDS: ENOXAPARIN 40 MG/0.4 ML SYRINGE SQ SCH (08:30)
[2023-04-26] MEDS: prednisoLONE ACETATE 1% OPHTH DROPS 5 ML BTL BOTH EYES SCH ×4 (08:30→21:42)
[2023-04-26] MEDS: LOSARTAN 50 MG TAB PO SCH (08:30)
[2023-04-26] MEDS: METOPROLOL SUCCINATE (ER) 50 MG TAB.ER.24H PO SCH (08:30)
[2023-04-26] MEDS: AMOXIC-POT CLAV 875-125MG 1 EACH TAB PO SCH ×2 (08:30→20:13)
[2023-04-26] MEDS ORDERED: METOPROLOL SUCCINATE (ER) 25 MG TAB.ER.24H PO SCH (09:00)
[2023-04-26] MEDS: IPRATROPIUM-ALBUTEROL 3 ML NEB INHALATION SCH ×4 (09:02→20:35)
--- NOTE | 2023-04-26 11:00 | P.PN ---
Subjective Progress Note Date: 04/26/23 87-year-old female with PMH of COPD on home oxygen, hypertension, dyslipidemia, osteoarthritis presents the ED for worsening shortness of breath. Symptoms have been ongoing for the past 3 days. She reports cough productive of sputum along with shortness of breath and wheezing. This prompted her to come to the ED. In the ED, she underwent extensive evaluation. She was noted to be tachycardic with heart rate in the 100s. She was tachypneic with respiratory rate of 24. Vital signs otherwise stable on 3 L nasal cannula. CBC showed WBC count of 12. INR was 1. CMP showed a bicarb of 34. Lactic acid 0.9. Magnesium 2.0. Troponin 0.015. EKG showed sinus tachycardia with no ST wave changes. Chest x-ray showed bibasilar patchy opacities. Patient is admitted for further management of symptoms. 04/26 Patient was seen and examined. Currently on 2L NC. States she is 50% better. COVID, Flu, RSV negative. Procal pending. General: non toxic, no distress, appears at stated age Derm: warm, dry Head: atraumatic, normocephalic, symmetric Eyes: EOMI, no lid lag, anicteric sclera Cardiovascular: Tachycardic, no murmur Lungs: Scattered expiratory wheezing bilateral, no rhonchi, no rales , no accessory muscle use Ext: no gross muscle atrophy, no edema, no contractures Neuro: no focal neuro deficits Psych: Alert, oriented, appropriate affect Based on my assessment of this patient, this patient meets a moderate complexity level of care. Patient has a history of COPD with severe exacerbation or progression of disease which poses a threat to life or bodily function. Asthma/COPD exacerbation Bronchodilators: DuoNeb 0.5mg-3mg/3ml scheduled and as needed for SOB and wheezing. Antibiotics: Augmentin 1 tab PO BID. Steroids: SoluMedrol 60 mg IV Q6H. Supplemental oxygen to maintain O2 > 92%. Pulmonology consult. Pulmonary opacities, concerning for pneumonia, predominantly reticular in nature: Continue Augmentin. Appears chronic findings. Obtain pro-calcitonin. Hypertension Hyperlipidemia Osteoarthritis CODE STATUS: NO CODE DVT Prophylaxis: Lovenox SQ GI Prophylaxis: Protonix PO Designated medical POA if patient is not able to make medical decisions for themselves: Son I have reviewed the following qm consultant notes: I have reviewed the results of the following tests: COVID, RSV, Flu. I have ordered the following tests: Procal. I have discussed the care of this patient with the following independent historian: I have independently interpreted the following test below: I have discussed the management of this patient with the following physician: Objective - Vital Signs Vital signs: Vital Signs Temp 97.8 F 04/26/23 07:06 Pulse 109 H 04/26/23 09:16 Resp 17 04/26/23 07:06 BP 167/80 04/26/23 07:06 Pulse Ox 99 04/26/23 09:07 FiO2 Intake & Output 04/25/23 04/26/23 04/26/23 18:59 06:59 18:59 Intake Total 1080 Output Total 300 400 Balance 780 -400 Weight 72.575 kg Intake: Oral 1080 Output: Urine 300 400 Other: Voiding Method External Catheter # Voids 2 - Labs CBC & Chem 7: 04/25/23 07:46 04/25/23 07:46
[2023-04-26] MEDS: DILTIAZEM CD 120 MG CAP.ER.24H PO SCH (20:13)
[2023-04-26] MEDS: ATORVASTATIN 20 MG TAB PO SCH (20:13)
[2023-04-26] MEDS ORDERED: MELATONIN 5 MG TABLET PO PRN (20:32)
[2023-04-27] MEDS: methylPREDNISolone SOD SUCCI 125 MG/2 ML VIAL IV SCH ×2 (00:16→06:21)
[2023-04-27] MEDS: PANTOPRAZOLE 40 MG TABLET PO SCH (06:21)
[2023-04-27 07:59] VITALS: BP 144/81; TEMP 97.3
[2023-04-27] MEDS: IPRATROPIUM-ALBUTEROL 3 ML NEB INHALATION SCH ×2 (08:35→12:20)
[2023-04-27 08:53] VITALS: PULSE 72
[2023-04-27] MEDS: LOSARTAN 50 MG TAB PO SCH (09:03)
[2023-04-27] MEDS: AMOXIC-POT CLAV 875-125MG 1 EACH TAB PO SCH (09:03)
[2023-04-27] MEDS: METOPROLOL SUCCINATE (ER) 50 MG TAB.ER.24H PO SCH (09:03)
[2023-04-27] MEDS: ENOXAPARIN 40 MG/0.4 ML SYRINGE SQ SCH (09:03)
[2023-04-27] MEDS: hydroCHLOROthiazide 25 MG TAB PO SCH (09:04)
[2023-04-27] MEDS: prednisoLONE ACETATE 1% OPHTH DROPS 5 ML BTL BOTH EYES SCH (09:07)
[2023-04-27] MEDS ORDERED: predniSONE 20 MG TAB PO SCH (09:45)
--- NOTE | 2023-04-27 10:30 | P.DS ---
Providers Date of admission: 04/25/23 10:31 Expected date of discharge: 04/27/23 Attending physician: Margarito Gutierrez MD Consults: 04/25/23 10:58 Consult Physician Routine Consulting Provider: Buzz Richardson Consult Reason/Comments: COPD ex Do you want consulting provider notified?: Yes Primary care physician: Po Winchester MD Hospital Course: 87-year-old female with PMH of COPD on home oxygen, hypertension, dyslipidemia, osteoarthritis presents the ED for worsening shortness of breath. Symptoms have been ongoing for the past 3 days. She reports cough productive of sputum along with shortness of breath and wheezing. This prompted her to come to the ED. In the ED, she underwent extensive evaluation. She was noted to be tachycardic with heart rate in the 100s. She was tachypneic with respiratory rate of 24. Vital signs otherwise stable on 3 L nasal cannula. CBC showed WBC count of 12. INR was 1. CMP showed a bicarb of 34. Lactic acid 0.9. Magnesium 2.0. Troponin 0.015. EKG showed sinus tachycardia with no ST wave changes. Chest x-ray showed bibasilar patchy opacities. Patient is admitted for further management of symptoms. She was started on SoluMedrol, Augmenting and bronchodilators scheduled and PRN. Pulmonology was consulted and followed the patient. 04/26 Patient was seen and examined. Currently on 2L NC. States she is 50% better. COVID, Flu, RSV negative. Procal negative. 04/27 Patient was seen and examined. Breathing considerably improved. Pulmonology has cleared the patient for discharge on Prednisone taper. Pertinent studies include CXR, EKG. General: non toxic, no distress, appears at stated age Derm: warm, dry Head: atraumatic, normocephalic, symmetric Eyes: EOMI, no lid lag, anicteric sclera Cardiovascular: Normal S1 S2, no murmur Lungs: End expiratory wheezing bilateral, no rhonchi, no rales , no accessory muscle use Ext: no gross muscle atrophy, no edema, no contractures Neuro: no focal neuro deficits Psych: Alert, oriented, appropriate affect Discharge Diagnosis: Asthma/COPD exacerbation Pulmonary opacities, concerning for pneumonia, predominantly reticular in nature: Continue Augmentin. Appears chronic findings. Obtain pro-calcitonin. Hypertension Hyperlipidemia Osteoarthritis This complex discharge took 35 minutes to complete. Patient Condition at Discharge: Stable Plan - Discharge Summary New Discharge Prescriptions: New RX: predniSONE See Taper PO DIRECTED #30 tab RX: Pantoprazole [Protonix] 40 mg PO AC-BRKFST #30 tab Continue RX: Losartan Potassium 100 mg PO DAILY RX: Albuterol Inhaler [Ventolin Hfa Inhaler] 2 puff INHALATION RT-Q4H PRN #1 each PRN Reason: Shortness Of Breath RX: predniSONE 10 mg PO DAILY #90 tab RX: Cetirizine HCl/Pseudoephedrine [Zyrtec-D ER 5 mg-120 mg Tablet] 1 tab PO DAILY RX: Albuterol Nebulized [Ventolin Nebulized] 2.5 mg INHALATION RT-QID RX: dilTIAZem HCL [Cardizem CD] 120 mg PO HS RX: hydroCHLOROthiazide [Hydrodiuril] 25 mg PO DAILY #90 tab RX: Acetaminophen/Diphenhydramine [Tylenol PM 500-25mg] 1 tab PO HS RX: Zolpidem [Ambien] 2.5 mg PO HS PRN PRN Reason: Insomnia RX: Metoprolol Succinate (ER) [Toprol XL] 50 mg PO DAILY Discharge Medication List RX: Losartan Potassium 100 mg PO DAILY 10/30/14 [History] RX: Albuterol Nebulized [Ventolin Nebulized] 2.5 mg INHALATION RT-QID 11/07/21 [History] RX: Albuterol Inhaler [Ventolin Hfa Inhaler] 2 puff INHALATION RT-Q4H PRN #1 each 05/19/22 [Rx] RX: dilTIAZem HCL [Cardizem CD] 120 mg PO HS 09/26/22 [History] RX: hydroCHLOROthiazide [Hydrodiuril] 25 mg PO DAILY #90 tab 09/30/22 [Rx] RX: predniSONE 10 mg PO DAILY #90 tab 09/30/22 [Rx] RX: Acetaminophen/Diphenhydramine [Tylenol PM 500-25mg] 1 tab PO HS 04/25/23 [History] RX: Cetirizine HCl/Pseudoephedrine [Zyrtec-D ER 5 mg-120 mg Tablet] 1 tab PO DAILY 04/25/23 [History] RX: Metoprolol Succinate (ER) [Toprol XL] 50 mg PO DAILY 04/25/23 [History] RX: Zolpidem [Ambien] 2.5 mg PO HS PRN 04/25/23 [History] RX: Pantoprazole [Protonix] 40 mg PO AC-BRKFST #30 tab 04/27/23 [Rx] RX: predniSONE See Taper PO DIRECTED #30 tab 04/27/23 [Rx] Follow up Appointment(s)/Referral(s): Ashley Ku MD [STAFF PHYSICIAN] - 1-2 days Da Gilbert MD [STAFF PHYSICIAN] - 1 Week Discharge Disposition: HOME SELF-CARE
[2023-04-27 11:02] VITALS: RESP 18
--- NOTE | 2023-04-27 11:29 | P.PN ---
Subjective Progress Note Date: 04/27/23 I am seeing this patient in consultation today 04/26/2023 for acute COPD exacerbation. 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 She does follow with Dr. Gilbert in the pulmonary office for management of her COPD. She is normally maintained on Trelegy Ellipta, Duo nebs around the clock, and as needed albuterol inhaler. Patient reports progressively worsening ongoing shortness of breath over the last 1-1/2 weeks, and finally came to the emergency room yesterday morning. She also admits associated cough with occasional white to yellow sputum production. She's had chest tightness and wheezing. Denies any hemoptysis or chest pain. Denies fevers. Denies sick contacts. She does state that she recently moved department, and may contribute her exacerbation to dust. Chest x-ray on arrival demonstrated bibasilar patchy airspace opacities which may represent atelectasis/fibrotic changes versus infiltrates. Chest x- ray on arrival showed some mild leukocytosis with a WBC count of 12, hemoglobin 14.3, hematocrit 42.9, platelets 358. BMP was unremarkable on arrival. Troponin 0.015. Negative for influenza, RSV, COVID-19. Afebrile. Patient empirically started on Augmentin. Patient also started on a combination of Symbicort, DuoNeb's, and IV Solu-Medrol. She is currently sitting up in the recliner, on 2 L/m nasal cannula, in no acute distress. She does have a walker at bedside for ambulation. She will be monitored on the general medical floor. On today's evaluation of 04/27/2023, the patient is feeling better. She is less short of breath. She is a smoker spastic and wheezing. She responded nicely to IV Solu-Medrol and the patient was switched to prednisone burst taper. She is active. Minimal cough and congestion. Less focused spastic and wheezing. No fever. Objective - Vital Signs Vital signs: Vital Signs Temp 97.3 F L 04/27/23 07:18 Pulse 72 04/27/23 08:47 Resp 17 04/27/23 07:18 BP 144/81 04/27/23 07:18 Pulse Ox 97 04/27/23 08:39 FiO2 Intake & Output 04/26/23 04/27/23 04/27/23 18:59 06:59 18:59 Other: # Voids 3 1 - Exam GENERAL EXAM: Alert, 87-year-old -Lao female, comfortable in no apparent distress. HEAD: Normocephalic and atraumatic EYES: Normal reaction of pupils, equal size. NOSE: Clear with pink turbinates. THROAT: No erythema or exudates. NECK: No masses, no JVD. CHEST: No chest wall deformity. LUNGS: Equal air entry with diffuse expiratory wheezes heard throughout. On 2 L/m nasal cannula. No conversational dyspnea or accessory muscle use.. CVS: S1 and S2 normal with no audible murmur, regular rhythm. No extra heart sounds ABDOMEN: No hepatosplenomegaly, active bowel sounds, no guarding or rigidity. SPINE: No scoliosis or deformity SKIN: No rashes CENTRAL NERVOUS SYSTEM: No focal deficits, tone is normal in all 4 extremities. EXTREMITIES: There is no peripheral edema, clubbing, or cyanosis. Peripheral pulses are intact. - Labs CBC & Chem 7: 04/25/23 07:46 04/25/23 07:46 Labs: Microbiology - Last 24 Hours (Table) 04/25/23 08:07 Blood Culture - Preliminary Blood 04/25/23 08:07 Blood Culture - Preliminary Blood Assessment and Plan Assessment: Acute on chronic hypoxemic respiratory failure, secondary to acute COPD exacerbation. Chest x-ray on arrival demonstrated bibasilar patchy airspace opacities which may represent atelectasis/reported changes versus infiltrates. Negative for influenza, RSV, COVID-19. Mild leukocytosis Hypertension Hyperlipidemia History of severe oxygen dependent COPD Schatzki' ring status/post balloon dilation Remote ex-smoker Plan: We'll discharge the patient home on a prednisone burst taper starting with 40 mg to be tapered down to 10 mg every 4 days and the patient will maintain on 210 mg maintenance We'll resume Trelegy Ellipta at home 1 puff a day Albuterol updrafts 4 times a day Currently on 2 L/m nasal cannula, which she wears at home C She has advaned COPD and she is 02 and steroids dependent and she is admitted for COPD exacerbation. She has been on Trelegy as maintenance and she has been on prednisone 10 mg. She has another exacerbation and she is admitted accordingly. She is stable for now. She is cleared for discharge from the pulmonary standpoint.
== END 2023-04-27 12:19 | disposition home or self-care (01) | DRG 190 ==
LOC: EC 07:24 → SUPCPDRO 07:24 → 4SSUR 10:31
PROVIDERS: ADMIT Student in an Organized Health Care Education/Training Program; ATTEND Student in an Organized Health Care Education/Training Program
DX: J44.1 Chronic obstructive pulmonary disease with (acute) exacerbation (principal); J18.9 Pneumonia, unspecified organism; J96.21 Acute and chronic respiratory failure with hypoxia; J45.901 Unspecified asthma with (acute) exacerbation; J44.0 Chronic obstructive pulmonary disease with (acute) lower respiratory infection; Z66 Do not resuscitate; Z20.822 Contact with and (suspected) exposure to COVID-19; I10 Essential (primary) hypertension; E78.5 Hyperlipidemia, unspecified; K44.9 Diaphragmatic hernia without obstruction or gangrene; M54.9 Dorsalgia, unspecified; K76.9 Liver disease, unspecified; I25.2 Old myocardial infarction; H91.90 Unspecified hearing loss, unspecified ear; H93.19 Tinnitus, unspecified ear; M19.90 Unspecified osteoarthritis, unspecified site; Z99.81 Dependence on supplemental oxygen; Z79.52 Long term (current) use of systemic steroids; Z79.899 Other long term (current) drug therapy; Z96.651 Presence of right artificial knee joint; Z87.891 Personal history of nicotine dependence; Z88.5 Allergy status to narcotic agent; Z82.5 Family history of asthma and other chronic lower respiratory diseases
CPT/HCPCS: 36415; 71046; 80053; 83605; 83735; 84145; 84484; 85025; 85610; 85730; 87040; 87636; 93005; 94640; 94760; 96361; 96365; 96375; 99291

== ENCOUNTER 2023-08-12 02:33 | Emergency (ER) | payer MEDICARE, BC ==
[2023-08-12 03:06] VITALS: TEMP 98.5
--- NOTE | 2023-08-12 03:42 | ED ---
General Adult HPI - General Chief complaint: Abdominal Pain Stated complaint: ABD Pain Time Seen by Provider: 08/12/23 02:39 Source: patient Mode of arrival: EMS Limitations: no limitations - History of Present Illness Initial comments: Dictation was produced using [employer] dictation software. please excuse any grammatical, word or spelling errors. Chief Complaint: 87-year-old female presents emergency department for intermittent bouts of abdominal cramping diarrhea and nausea History of Present Illness: Patient is 87-year-old female brought in from [facility] by EMS for intermittent bouts of diarrhea. Patient states for the last several days she has been having intermittent episodes of abdominal cramps nausea and diarrhea. States that the cramping is to her periumbilical area. Denies any fever, chills or night sweats. States that her stool seems brown. Denies black or bloody stools. Denies any constitutional symptoms. The ROS documented in this emergency department record has been reviewed and confirmed by me. Those systems with pertinent positive or negative responses have been documented in the HPI. All other systems are other negative and/or noncontributory. - Related Data Home Medications Medication Instructions Recorded Confirmed Losartan Potassium 100 mg PO DAILY 10/30/14 04/25/23 Albuterol Nebulized [Ventolin 2.5 mg INHALATION RT-QID 11/07/21 04/25/23 Nebulized] dilTIAZem HCL [Cardizem CD] 120 mg PO HS 09/26/22 04/25/23 Acetaminophen/Diphenhydramine 1 tab PO HS 04/25/23 04/25/23 [Tylenol PM 500-25mg] Cetirizine HCl/Pseudoephedrine 1 tab PO DAILY 04/25/23 04/25/23 [Zyrtec-D ER 5 mg-120 mg Tablet] Metoprolol Succinate (ER) [Toprol 50 mg PO DAILY 04/25/23 04/25/23 XL] Zolpidem [Ambien] 2.5 mg PO HS PRN 04/25/23 04/25/23 Previous Rx's Medication Instructions Recorded Albuterol Inhaler [Ventolin Hfa 2 puff INHALATION RT-Q4H PRN #1 05/19/22 Inhaler] each hydroCHLOROthiazide [Hydrodiuril] 25 mg PO DAILY #90 tab 09/30/22 predniSONE 10 mg PO DAILY #90 tab 09/30/22 Pantoprazole [Protonix] 40 mg PO AC-BRKFST #30 tab 04/27/23 predniSONE See Taper PO DIRECTED #30 tab 04/27/23 Allergies Allergy/AdvReac Type Severity Reaction Status Date / Time hydrocodone bitartrate AdvReac states Verified 08/12/23 02:40 [From Vicodin] "doesn't make me feel good" Review of Systems ROS Statement: Those systems with pertinent positive or pertinent negative responses have been documented in the HPI. ROS Other: All systems not noted in ROS Statement are negative. 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 Last Myocardial Infarction Date:: 40 years ago History of Any Multi-Drug Resistant Organisms: None Reported Past Surgical History: Cholecystectomy, Hysterectomy, Orthopedic Surgery Additional Past Surgical History / Comment(s): KNEE arthroscopy, COLONOSCOPY- LARGE POLYP REMOVED, EGD, cataracts, Right TKA (10/21/21) Past Anesthesia/Blood Transfusion Reactions: No Reported Reaction Additional Past Anesthesia/Blood Transfusion Reaction / Comment(s): No hx blood transfusion. Past Psychological History: No Psychological Hx Reported Smoking Status: Former smoker - Past Family History Sister(s) Family Medical History: Cancer Additional Family Medical History / Comment(s): #1 sister colon cancer, # 2 sister lung cancer. Father Family Medical History: Cancer Additional Family Medical History / Comment(s): Prostate cancer. Mother Family Medical History: Asthma Additional Family Medical History / Comment(s): Heart problems. Son(s) Additional Family Medical History / Comment(s): SCLERODERMA General Exam - General Exam Comments Initial Comments: PHYSICAL EXAM: General Impression: Alert and oriented x3, not in acute distress HEENT: Normocephalic atraumatic, extra-ocular movements intact, pupils equal and reactive to light bilaterally, mucous membranes moist. Cardiovascular: Heart regular rate and rhythm Chest: Able to complete full sentences, no retractions, no tachypnea Abdomen: abdomen soft, n mild tenderness to the periumbilical area, non- distended, no organomegaly Musculoskeletal: Pulses present and equal in all extremities, no peripheral edema Motor: no focal deficits noted Neurological: CN II-XII grossly intact, no focal motor or sensory deficits noted Skin: Intact with no visualized rashes Psych: Normal affect and mood Limitations: no limitations Course Vital Signs 08/12/23 08/12/23 08/12/23 02:35 03:28 04:21 Temperature 98.5 F Pulse Rate 114 H 101 H Respiratory 22 20 Rate Blood Pressure 81/68 131/94 147/82 O2 Sat by Pulse 90 L 98 Oximetry EKG Findings - EKG Comments: EKG Findings:: My EKG interpretation: Ventricular rate 96, sinus rhythm,. 157, QRS 85, QTc 414. No OH prolongation, no QTC prolongation, no ST or T-wave changes noted. Overall, this EKG is unremarkable Medical Decision Making - Medical Decision Making Was pt. sent in by a medical professional or institution (, PA, CAMPER ASSEMBLER, urgent care, hospital, or senior living...) When possible be specific @ -No Did you speak to anyone other than the patient for history (EMS, parent, family, police, friend...)? What history was obtained from this source @ -No Did you review nursing and triage notes (agree or disagree)? Why? @ -I reviewed and agree with nursing and triage notes Were old charts reviewed (outside hosp., previous admission, EMS record, old EKG, old radiological studies, urgent care reports/EKG's, senior living records)? Report findings @ -No old charts were reviewed Differential Diagnosis (chest pain, altered mental status, abdominal pain women, abdominal pain men, vaginal bleeding, musculoskeletal, weakness, fever, dyspnea, syncope, headache, dizziness, GI bleed, back pain, seizure, CVA, palpatations, mental health)? @ -Differential Abdominal Pain Women: Appendicitis, Cholecystitis, diverticulosis, ischemic bowel, pancreatitis, hepatitis, UTI, gastroenteritis, AAA, incarcerated hernia, bowel obstruction, constipation, inflammatory bowel, hepatitis, peptic ulcer disease, splenic infarction, perforated viscus, vulvitis, ovarian torsion, PID, kidney stone, placenta abruption, this is not meant to be an all-inclusive list EKG interpreted by me (3pts min.). @ -See above X-rays interpreted by me (1pt min.). @ -Abdominal x-ray is nonobstructive. Otherwise no acute processes CT interpreted by me (1pt min.). @ -None done U/S interpreted by me (1pt. min.). @ -None done What testing was considered but not performed or refused? (CT, X-rays, U/S, la bs)? Why? @ -None What meds were considered but not given or refused? Why? @ -None Did you discuss the management of the patient with other professionals (professionals i.e. , PA, CAMPER ASSEMBLER, lab, RT, psych nurse, social work coordinator, ukrainian folk arts instructor, teacher, flight radio officer, porter sample case)? Give summary @ -No Was smoking cessation discussed for >3mins.? @ -No Was critical care preformed (if so, how long)? @ -No Were there social determinants of health that impacted care today? How? (Homelessness, low income, unemployed, alcoholism, drug addiction, transportation, low edu. Level, literacy, decrease access to med. care, fpc, rehab)? @ -No Was there de-escalation of care discussed even if they declined (Discuss DNR or withdrawal of care, Hospice)? DNR status @ -No What co-morbidities impacted this encounter? (DM, HTN, Smoking, COPD, CAD, Cancer, CVA, ARF, Chemo, Hep., AIDS, mental health diagnosis, sleep apnea, morbid obesity)? @ -None Was patient admitted / discharged? Hospital course, mention meds given and route, prescriptions, significant lab abnormalities, going to OR and other pertinent info. @ -87-year-old well-appearing female presents emergency department for chief complaint of abdominal cramping and diarrhea. Vital signs upon arrival are within acceptable limits. Patient well-appearing at the bedside. She has a nonsurgical abdomen. Laboratory evaluation obtained. Mild leukocytosis of 11.7 metabolic panel is unremarkable. Abdominal x-ray is negative. Patient reevaluated bedside at 6:05 AM she is sleeping resting comfortably. Repeat examination is unremarkable. Spine patient cleared for discharge. Advised follow-up with primary care doctor. Undiagnosed new problem with uncertain prognosis? @ -No Drug Therapy requiring intensive monitoring for toxicity (Heparin, Nitro, Insulin, Cardizem)? @ -No Were any procedures done? @ -No Diagnosis/symptom? Acute, or Chronic, or Acute on Chronic? Uncomplicated (without systemic symptoms) or Complicated (systemic symptoms)? @ -Enteritis Side effects of treatment? @ -No Exacerbation, Progression, or Severe Exacerbation? @ -No Poses a threat to life or bodily function? How? (Chest pain, [place], [place], pneumonia, PE, COPD, DKA, ARF, appy, cholecystitis, CVA, Diverticulitis, Homicidal, Suicidal, threat to staff... and all critical care pts) @ -No - Lab Data Result diagrams: 08/12/23 04:33 08/12/23 04:01 Lab Results 08/12/23 08/12/23 08/12/23 Range/Units 04:01 04:01 04:33 WBC 11.7 H (3.8-10.6) k/uL RBC 4.50 (3.80-5.40) m/uL Hgb 14.3 (11.4-16.0) gm/dL Hct 43.0 (34.0-46.0) % MCV 95.7 (80.0-100.0) fL MCH 31.8 (25.0-35.0) pg MCHC 33.2 (31.0-37.0) g/dL RDW 13.4 (11.5-15.5) % Plt Count 263 (150-450) k/uL MPV 7.2 Neutrophils % 80 % Lymphocytes % 8 % Monocytes % 8 % Eosinophils % 2 % Basophils % 2 % Neutrophils # 9.3 H (1.3-7.7) k/uL Lymphocytes # 0.9 L (1.0-4.8) k/uL Monocytes # 0.9 (0-1.0) k/uL Eosinophils # 0.2 (0-0.7) k/uL Basophils # 0.2 (0-0.2) k/uL Sodium 137 (137-145) mmol/L Potassium 4.2 (3.5-5.1) mmol/L Chloride 102 (98-107) mmol/L Carbon Dioxide 33 H (22-30) mmol/L Anion Gap 2 mmol/L BUN 17 (7-17) mg/dL Creatinine 0.73 (0.52-1.04) mg/dL Est GFR (CKD-EPI)AfAm 87 (>60 ml/min/1.73 sqM) Est GFR (CKD-EPI)NonAf 76 (>60 ml/min/1.73 sqM) Glucose 90 (74-99) mg/dL Plasma Lactic Acid Jace 1.5 (0.7-2.0) mmol/L Calcium 8.6 (8.4-10.2) mg/dL Magnesium 2.0 (1.6-2.3) mg/dL Total Bilirubin 0.9 (0.2-1.3) mg/dL AST 45 H (14-36) U/L ALT 20 (4-34) U/L Alkaline Phosphatase 52 (38-126) U/L Total Protein 6.3 (6.3-8.2) g/dL Albumin 3.8 (3.5-5.0) g/dL Disposition Clinical Impression: Diarrhea Disposition: HOME SELF-CARE Condition: Good Instructions (If sedation given, give patient instructions): Gastroenteritis (ED) Is patient prescribed a controlled substance at d/c from ED?: No Referrals: Ashley Ku MD [Primary Care Provider] - 1-2 days Time of Disposition: 06:06
[2023-08-12] MEDS: SODIUM CHLORIDE 0.9% 1,000 ML IV STA (04:21)
[2023-08-12 04:36] VITALS: BP 147/82
[2023-08-12 04:42] LABS: Basophils # (A) 0.2 k/uL (0-0.2); Basophils % (A) 2 %; Eosinophils # (A) 0.2 k/uL (0-0.7); Eosinophils % (A) 2 %; HGB 14.3 gm/dL (11.4-16.0); Lymphocytes # (A) 0.9 k/uL (1.0-4.8); Lymphocytes % (A) 8 %; MCH 31.8 pg (25.0-35.0); MCHC 33.2 g/dL (31.0-37.0); MCV 95.7 fL (80.0-100.0); Mean Platelet Volume 7.2; Monocytes # (A) 0.9 k/uL (0-1.0); Monocytes % (A) 8 %; Neutrophils # (A) 9.3 k/uL (1.3-7.7); Neutrophils % (A) 80 %; Platelet Count 263 k/uL (150-450); RDW 13.4 % (11.5-15.5); WBC 11.7 k/uL (3.8-10.6)
[2023-08-12 04:55] LABS: ALT 20 U/L (4-34); AST 45 U/L (14-36); African American GFR (CKD) 87 (>60 ml/min/1.73 sqM); Albumin 3.8 g/dL (3.5-5.0); Alkaline Phosphatase 52 U/L (38-126); Anion Gap 2 mmol/L; Blood Urea Nitrogen 17 mg/dL (7-17); Calcium 8.6 mg/dL (8.4-10.2); Carbon Dioxide 33 mmol/L (22-30); Chloride 102 mmol/L (98-107); Glucose 90 mg/dL (74-99); Non-African American GFR(CKD) 76 (>60 ml/min/1.73 sqM); Sodium 137 mmol/L (137-145); Total Bilirubin 0.9 mg/dL (0.2-1.3); Total Protein 6.3 g/dL (6.3-8.2)
[2023-08-12 04:58] LABS: Potassium 4.2 mmol/L (3.5-5.1)
--- NOTE | 2023-08-12 05:51 | XR ---
EXAMINATION TYPE: XR abdomen 1V DATE OF EXAM: 08/12/2023 4:51 AM CLINICAL HISTORY: Abdominal cramping TECHNIQUE: Two portable frontal KUB images of the abdomen are obtained. COMPARISON: CT September 06, 2017. FINDINGS: Scattered gas is seen in non-distended small bowel loops. Gas is seen in non-distended colo n. Cholecystectomy clips are present.. There is S-shaped scoliosis. Moderate narrowing of both hip leticia ints is present. Lung bases are clear. IMPRESSION: Overall nonobstructive bowel gas pattern redemonstrated.
[2023-08-12 06:40] VITALS: PULSE 100; RESP 22
== END 2023-08-12 08:18 | disposition home or self-care (01) ==
LOC: EC 02:33
DX: R19.7 Diarrhea, unspecified (principal); I10 Essential (primary) hypertension; I25.2 Old myocardial infarction; J44.89 Other specified chronic obstructive pulmonary disease; M19.90 Unspecified osteoarthritis, unspecified site; E78.5 Hyperlipidemia, unspecified; Z79.899 Other long term (current) drug therapy; Z87.891 Personal history of nicotine dependence; Z88.5 Allergy status to narcotic agent; Z90.49 Acquired absence of other specified parts of digestive tract
CPT/HCPCS: 36415; 74018; 80053; 83605; 83735; 85025; 93005; 96360; 96365; 96366; 96367; 96375; 99285; 99291

== ENCOUNTER 2023-10-31 18:20 | Observation (INO) | payer MEDICARE, BC ==
[2023-10-31 20:24] LABS: Basophils % (A) 0 %; Eosinophils # (A) 0.2 k/uL (0-0.7); Eosinophils % (A) 2 %; HCT 43.1 % (34.0-46.0); HGB 13.7 gm/dL (11.4-16.0); Lymphocytes % (A) 11 %; MCHC 31.9 g/dL (31.0-37.0); MCV 94.2 fL (80.0-100.0); Mean Platelet Volume 8.2; Monocytes # (A) 0.4 k/uL (0-1.0); Monocytes % (A) 5 %; Neutrophils # (A) 7.5 k/uL (1.3-7.7); Neutrophils % (A) 81 %; Platelet Count 323 k/uL (150-450); RBC 4.57 m/uL (3.80-5.40); RDW 13.1 % (11.5-15.5); WBC 9.2 k/uL (3.8-10.6)
[2023-10-31 20:33] LABS: INR 0.9 (<1.2); Partial Thromboplastin Time 22.5 sec (22.0-30.0); Prothrombin Time 10.3 sec (10.0-12.5)
[2023-10-31 20:38] LABS: ALT 20 U/L (4-34); AST 26 U/L (14-36); African American GFR (CKD) 81 (>60 ml/min/1.73 sqM); Albumin 3.9 g/dL (3.5-5.0); Alkaline Phosphatase 63 U/L (38-126); Anion Gap 2 mmol/L; Blood Urea Nitrogen 24 mg/dL (7-17); Calcium 9.7 mg/dL (8.4-10.2); Carbon Dioxide 36 mmol/L (22-30); Chloride 101 mmol/L (98-107); Glucose 98 mg/dL (74-99); Non-African American GFR(CKD) 71 (>60 ml/min/1.73 sqM); Potassium 3.9 mmol/L (3.5-5.1); Sodium 139 mmol/L (137-145); Total Bilirubin 0.4 mg/dL (0.2-1.3); Total Protein 6.3 g/dL (6.3-8.2)
--- NOTE | 2023-10-31 20:48 | XR ---
EXAMINATION TYPE: XR chest 2V DATE OF EXAM: 10/31/2023 8:20 PM CLINICAL INDICATION:Female, 87 years old with history of difficulty breathing; COMPARISON: Chest radiographs from 04/25/2023 TECHNIQUE: XR chest 2V Frontal and lateral views of the chest. FINDINGS: Lungs/Pleura: There is no evidence of pleural effusion, focal consolidation, or pneumothorax. Pulmonary vascularity: Unremarkable. Heart/mediastinum: Cardiomediastinal silhouette is unremarkable. Atherosclerotic calcifications are seen in the aorta. Musculoskeletal: No acute osseous pathology. Other findings: None IMPRESSION: No acute cardiopulmonary disease/process.
--- NOTE | 2023-10-31 21:59 | ED ---
SOB HPI - General Chief Complaint: Shortness of Breath Stated Complaint: Difficulty breathing Time Seen by Provider: 10/31/23 20:05 Source: patient Mode of arrival: wheelchair Limitations: no limitations - History of Present Illness Initial Comments: 87-year-old female with past medical history of COPD presents emergency department for shortness of breath. States has been going on for 2 days. She wears 2 L at home. She follows with Dr. Jarquin. States that he saw her in office on Wednesday. He thought she needed a bronchoscopy. She states that he told her to come over to the hospital to get admitted. She takes 10 mg of prednisone daily. Denies fevers. Admits to chills with a productive cough. Denies chest pain. No lower extremity edema. No other alleviating, precipitating or modifying factors - Related Data Home Medications Medication Instructions Recorded Confirmed Losartan Potassium 100 mg PO DAILY 10/30/14 04/25/23 Albuterol Nebulized [Ventolin 2.5 mg INHALATION RT-QID 11/07/21 04/25/23 Nebulized] dilTIAZem HCL [Cardizem CD] 120 mg PO HS 09/26/22 04/25/23 Acetaminophen/Diphenhydramine 1 tab PO HS 04/25/23 04/25/23 [Tylenol PM 500-25mg] Cetirizine HCl/Pseudoephedrine 1 tab PO DAILY 04/25/23 04/25/23 [Zyrtec-D ER 5 mg-120 mg Tablet] Metoprolol Succinate (ER) [Toprol 50 mg PO DAILY 04/25/23 04/25/23 XL] Zolpidem [Ambien] 2.5 mg PO HS PRN 04/25/23 04/25/23 Previous Rx's Medication Instructions Recorded Albuterol Inhaler [Ventolin Hfa 2 puff INHALATION RT-Q4H PRN #1 05/19/22 Inhaler] each hydroCHLOROthiazide [Hydrodiuril] 25 mg PO DAILY #90 tab 09/30/22 predniSONE 10 mg PO DAILY #90 tab 09/30/22 Pantoprazole [Protonix] 40 mg PO AC-BRKFST #30 tab 04/27/23 predniSONE See Taper PO DIRECTED #30 tab 04/27/23 Allergies Allergy/AdvReac Type Severity Reaction Status Date / Time hydrocodone bitartrate AdvReac states Verified 10/31/23 18:30 [From Vicodin] "doesn't make me feel good" Review of Systems ROS Statement: Those systems with pertinent positive or pertinent negative responses have been documented in the HPI. ROS Other: All systems not noted in ROS Statement are negative. 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 Last Myocardial Infarction Date:: 40 years ago History of Any Multi-Drug Resistant Organisms: None Reported Past Surgical History: Cholecystectomy, Hysterectomy, Orthopedic Surgery Additional Past Surgical History / Comment(s): KNEE arthroscopy, COLONOSCOPY- LARGE POLYP REMOVED, EGD, cataracts, Right TKA (10/21/21) Past Anesthesia/Blood Transfusion Reactions: No Reported Reaction Additional Past Anesthesia/Blood Transfusion Reaction / Comment(s): No hx blood transfusion. Past Psychological History: No Psychological Hx Reported Smoking Status: Former smoker Past Alcohol Use History: None Reported Past Drug Use History: None Reported - Past Family History Sister(s) Family Medical History: Cancer Additional Family Medical History / Comment(s): #1 sister colon cancer, # 2 sister lung cancer. Father Family Medical History: Cancer Additional Family Medical History / Comment(s): Prostate cancer. Mother Family Medical History: Asthma Additional Family Medical History / Comment(s): Heart problems. Son(s) Additional Family Medical History / Comment(s): SCLERODERMA General Exam Limitations: no limitations Course Vital Signs 10/31/23 10/31/23 10/31/23 18:28 20:32 21:00 Temperature 98.4 F Pulse Rate 85 71 Respiratory 20 18 19 Rate Blood Pressure 127/70 148/82 O2 Sat by Pulse 96 100 Oximetry 10/31/23 11/01/23 23:45 01:44 Temperature Pulse Rate 73 64 Respiratory 18 17 Rate Blood Pressure 156/85 129/67 O2 Sat by Pulse 99 98 Oximetry Medical Decision Making - Medical Decision Making Was pt. sent in by a medical professional or institution (Dr., PA, ANALYTICAL LEAD, urgent care, hospital, or usp...) When possible be specific @ -[No] Did you speak to anyone other than the patient for history (EMS, parent, family, police, friend...)? What history was obtained from this source @ -[No] Did you review nursing and triage notes (agree or disagree)? Why? @ -[I reviewed and agree with nursing and triage notes] Were old charts reviewed (outside hosp., previous admission, EMS record, old EK G, old radiological studies, urgent care reports/EKG's, usp records)? Report findings @ -[No old charts were reviewed] Differential Diagnosis (chest pain, altered mental status, abdominal pain women, abdominal pain men, vaginal bleeding, weakness, fever, dyspnea, syncope, headache, dizziness, GI bleed, back pain, seizure, CVA, palpatations, mental health, musculoskeletal)? @ -[not applicable] EKG interpreted by me (3pts min.). @ -Yes and demonstrates sinus rhythm with a rate of 77. [place] 161. QRS 86. QTc of 419. No acute ST segment elevations or depressions X-rays interpreted by me (1pt min.). @ -[None done] CT interpreted by me (1pt min.). @ -[None done] U/S interpreted by me (1pt. min.). @ -[None done] What testing was considered but not performed or refused? (CT, X-rays, U/S, labs)? Why? @ -[None] What meds were considered but not given or refused? Why? @ -[None] Did you discuss the management of the patient with other professionals (professionals i.e. GURU Hickman, ANALYTICAL LEAD, lab, RT, psych nurse, social services, reel system operator, teacher, housing management officer, case management coordinator)? Give summary @ -[No] Was smoking cessation discussed for >3mins.? @ -[No] Was critical care preformed (if so, how long)? @ -[No] Were there social determinants of health that impacted care today? How? (Homeles sness, low income, unemployed, alcoholism, drug addiction, transportation, low edu. Level, literacy, decrease access to med. care, half-way, rehab)? @ -[No] Was there de-escalation of care discussed even if they declined (Discuss DNR or withdrawal of care, Hospice)? DNR status @ -[No] What co-morbidities impacted this encounter? (DM, HTN, Smoking, COPD, CAD, Cancer, CVA, ARF, Chemo, Hep., AIDS, mental health diagnosis, sleep apnea, morbid obesity)? @ -[None] Was patient admitted / discharged? Hospital course, mention meds given and route, prescriptions, significant lab abnormalities, going to OR and other pertinent info. @ -[hospital course] Undiagnosed new problem with uncertain prognosis? @ -[No] Drug Therapy requiring intensive monitoring for toxicity (Heparin, Nitro, Insulin, Cardizem)? @ -[No] Were any procedures done? @ -[No] Diagnosis/symptom? @ -[default] Acute, or Chronic, or Acute on Chronic? @ -[default] Uncomplicated (without systemic symptoms) or Complicated (systemic symptoms)? @ -[default] Side effects of treatment? @ -[No] Exacerbation, Progression, or Severe Exacerbation? @ -[No] Poses a threat to life or bodily function? How? (Chest pain, USA, PA, pneumonia, PE, COPD, DKA, ARF, appy, cholecystitis, CVA, Diverticulitis, Homicidal, Suicidal, threat to staff... and all critical care pts) @ -[No] - Lab Data Result diagrams: 10/31/23 19:50 10/31/23 19:50 Lab Results 10/31/23 10/31/23 10/31/23 Range/Units 19:50 19:50 19:50 WBC 9.2 (3.8-10.6) k/uL RBC 4.57 (3.80-5.40) m/uL Hgb 13.7 (11.4-16.0) gm/dL Hct 43.1 (34.0-46.0) % MCV 94.2 (80.0-100.0) fL MCH 30.0 (25.0-35.0) pg MCHC 31.9 (31.0-37.0) g/dL RDW 13.1 (11.5-15.5) % Plt Count 323 (150-450) k/uL MPV 8.2 Neutrophils % 81 % Lymphocytes % 11 % Monocytes % 5 % Eosinophils % 2 % Basophils % 0 % Neutrophils # 7.5 (1.3-7.7) k/uL Lymphocytes # 1.0 (1.0-4.8) k/uL Monocytes # 0.4 (0-1.0) k/uL Eosinophils # 0.2 (0-0.7) k/uL Basophils # 0.0 (0-0.2) k/uL PT 10.3 (10.0-12.5) sec INR 0.9 (<1.2) APTT 22.5 (22.0-30.0) sec Sodium 139 (137-145) mmol/L Potassium 3.9 (3.5-5.1) mmol/L Chloride 101 (98-107) mmol/L Carbon Dioxide 36 H (22-30) mmol/L Anion Gap 2 mmol/L BUN 24 H (7-17) mg/dL Creatinine 0.77 (0.52-1.04) mg/dL Est GFR (CKD-EPI)AfAm 81 (>60 ml/min/1.73 sqM) Est GFR (CKD-EPI)NonAf 71 (>60 ml/min/1.73 sqM) Glucose 98 (74-99) mg/dL Plasma Lactic Acid Jace (0.7-2.0) mmol/L Calcium 9.7 (8.4-10.2) mg/dL Total Bilirubin 0.4 (0.2-1.3) mg/dL AST 26 (14-36) U/L ALT 20 (4-34) U/L Alkaline Phosphatase 63 (38-126) U/L Troponin I (0.000-0.034) ng/mL Total Protein 6.3 (6.3-8.2) g/dL Albumin 3.9 (3.5-5.0) g/dL 10/31/23 10/31/23 Range/Units 19:50 19:50 WBC (3.8-10.6) k/uL RBC (3.80-5.40) m/uL Hgb (11.4-16.0) gm/dL Hct (34.0-46.0) % MCV (80.0-100.0) fL MCH (25.0-35.0) pg MCHC (31.0-37.0) g/dL RDW (11.5-15.5) % Plt Count (150-450) k/uL MPV Neutrophils % % Lymphocytes % % Monocytes % % Eosinophils % % Basophils % % Neutrophils # (1.3-7.7) k/uL Lymphocytes # (1.0-4.8) k/uL Monocytes # (0-1.0) k/uL Eosinophils # (0-0.7) k/uL Basophils # (0-0.2) k/uL PT (10.0-12.5) sec INR (<1.2) APTT (22.0-30.0) sec Sodium (137-145) mmol/L Potassium (3.5-5.1) mmol/L Chloride (98-107) mmol/L Carbon Dioxide (22-30) mmol/L Anion Gap mmol/L BUN (7-17) mg/dL Creatinine (0.52-1.04) mg/dL Est GFR (CKD-EPI)AfAm (>60 ml/min/1.73 sqM) Est GFR (CKD-EPI)NonAf (>60 ml/min/1.73 sqM) Glucose (74-99) mg/dL Plasma Lactic Acid Jace 0.8 (0.7-2.0) mmol/L Calcium (8.4-10.2) mg/dL Total Bilirubin (0.2-1.3) mg/dL AST (14-36) U/L ALT (4-34) U/L Alkaline Phosphatase (38-126) U/L Troponin I <0.012 (0.000-0.034) ng/mL Total Protein (6.3-8.2) g/dL Albumin (3.5-5.0) g/dL Disposition Clinical Impression: COPD (chronic obstructive pulmonary disease) Disposition: ADMITTED IP TO THIS [facility] Condition: Stable Is patient prescribed a controlled substance at d/c from ED?: No Time of Disposition: 22:16 Decision to Admit Reason: Admit from EC Decision Date: 10/31/23 Decision Time: 22:16
[2023-10-31] MEDS ORDERED: NALOXONE 0.4 MG/ML 1 ML VIAL IV PRN (22:16)
[2023-10-31] MEDS ORDERED: IPRATROPIUM-ALBUTEROL 3 ML NEB INHALATION PRN (22:23)
[2023-10-31] MEDS: methylPREDNISolone SOD SUCCI 125 MG/2 ML VIAL IV STA (23:25)
[2023-11-01] MEDS ORDERED: IPRATROPIUM-ALBUTEROL 3 ML NEB INHALATION SCH
--- NOTE | 2023-11-01 02:07 | P.HPIM ---
History of Present Illness H&P Date: 10/31/23 Patient is a 87-year-old female with a PMH of COPD with chronic hypoxic respiratory failure on 2 L nasal cannula oxygen continuously at home, hypertension, and hyperlipidemia who presents to the emergency room with complaints of persistent cough. Patient notes that she was seen by Dr. Palacio at the clinic this past Wednesday. The patient notes that he advised her to go to the emergency room on Wednesday evening to be admitted for subsequent Wednesday morning bronchoscopy for her persistent cough. She reports being persistently short of breath over the past several weeks with a nonproductive cough. Denied experiencing chest discomfort, fever, chills, nausea, vomiting, diaphoresis, or dizziness. Chest x-ray in the emergency room was unremarkable. Laboratory evaluation revealed a troponin less than 0.012 with WBC count 9.2, hemoglobin 13.7, and CO2 36 with BUN 24 and creatinine 0.77 with lactic acid 0.8. ED documentation reviewed and case discussed with ED provider. Review of systems: Pertinent positives and negatives as discussed in HPI, a complete review of systems was performed and all other systems are negative. Physical examination: Vital signs reviewed General: non toxic, no distress, appears at stated age, overweight Derm: no unusual rashes/lesions, warm Head: atraumatic, normocephalic, symmetric Eyes: EOMI, no lid lag, anicteric sclera, pupils equal round reactive to light ENT: Nose and ears atraumatic Neck: No cervical lymphadenopathy, trachea midline, supple Mouth: no lip lesion, mucus membranes moist Cardiovascular: S1S2 reg, no murmur, positive dorsalis pedis pulse bilateral, no edema Lungs: Diminished air entry bilaterally with some expiratory wheezing without rhonchi or rales, no accessory muscle use Abdominal: soft, nontender to palpation, no guarding Ext: muscle strength 5 out of 5 in all 4 extremities grossly, no gross muscle atrophy, no contractures, Neuro: CN II-XI grossly intact, no gross focal neuro deficits Psych: Alert, oriented, appropriate affect Assessment: Acute COPD exacerbation Acute on chronic hypoxic respiratory failure Chronic conditions: Hypertension, hyperlipidemia Imaging: Chest x-ray in the emergency room was unremarkable Data Review: Laboratory evaluation revealed a troponin less than 0.012 with WBC count 9.2, hemoglobin 13.7, and CO2 36 with BUN 24 and creatinine 0.77 with lactic acid 0.8. Plan: Continue with prednisone 40 mg p.o. daily DuoNeb [id number] and as needed Pulmonary consulted Resume home medications once reconciled DVT prophylaxis: Lovenox subcu The patient is admitted with an anticipated less than 2 midnight stay for evaluation of COPD exacerbation CODE STATUS: Full Code Discussed with: Patient Anticipated discharge place: Home Past Medical History Past Medical History: Asthma, COPD, Eye Disorder, Hearing Disorder / Deafness, Hyperlipidemia, Hypertension, Liver Disease, Osteoarthritis (OA), Pneumonia Additional Past Medical History / Comment(s): Hx stomach ulcer, cysts on liver., urinary leakage., small hiatal hernia, diverticulosis, tinnitus , Pneumonia 2020., Oxygen @ 2 L PRN., environmental allergies, back pain., 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 Last Myocardial Infarction Date:: 40 years ago History of Any Multi-Drug Resistant Organisms: None Reported Past Surgical History: Cholecystectomy, Hysterectomy, Orthopedic Surgery Additional Past Surgical History / Comment(s): KNEE arthroscopy, COLONOSCOPY- LARGE POLYP REMOVED, EGD, cataracts, Right TKA (10/21/21) Past Anesthesia/Blood Transfusion Reactions: No Reported Reaction Additional Past Anesthesia/Blood Transfusion Reaction / Comment(s): No hx blood transfusion. Past Psychological History: No Psychological Hx Reported Smoking Status: Former smoker Past Alcohol Use History: None Reported Past Drug Use History: None Reported - Past Family History Sister(s) Family Medical History: Cancer Additional Family Medical History / Comment(s): #1 sister colon cancer, # 2 sister lung cancer. Father Family Medical History: Cancer Additional Family Medical History / Comment(s): Prostate cancer. Mother Family Medical History: Asthma Additional Family Medical History / Comment(s): Heart problems. Son(s) Additional Family Medical History / Comment(s): SCLERODERMA Medications and Allergies Home Medications Medication Instructions Recorded Confirmed Type Losartan Potassium 100 mg PO DAILY 10/30/14 04/25/23 History Albuterol Nebulized [Ventolin 2.5 mg INHALATION RT-QID 11/07/21 04/25/23 History Nebulized] Albuterol Inhaler [Ventolin Hfa 2 puff INHALATION RT-Q4H PRN #1 05/19/22 04/25/23 Rx Inhaler] each dilTIAZem HCL [Cardizem CD] 120 mg PO HS 09/26/22 04/25/23 History hydroCHLOROthiazide [Hydrodiuril] 25 mg PO DAILY #90 tab 09/30/22 04/25/23 Rx predniSONE 10 mg PO DAILY #90 tab 09/30/22 04/25/23 Rx Acetaminophen/Diphenhydramine 1 tab PO HS 04/25/23 04/25/23 History [Tylenol PM 500-25mg] Cetirizine HCl/Pseudoephedrine 1 tab PO DAILY 04/25/23 04/25/23 History [Zyrtec-D ER 5 mg-120 mg Tablet] Metoprolol Succinate (ER) [Toprol 50 mg PO DAILY 04/25/23 04/25/23 History XL] Zolpidem [Ambien] 2.5 mg PO HS PRN 04/25/23 04/25/23 History Pantoprazole [Protonix] 40 mg PO AC-BRKFST #30 tab 04/27/23 Rx predniSONE See Taper PO DIRECTED #30 tab 04/27/23 Rx Allergies Allergy/AdvReac Type Severity Reaction Status Date / Time hydrocodone bitartrate AdvReac states Verified 10/31/23 18:30 [From Vicodin] "doesn't make me feel good" Physical Exam Vitals: Vital Signs Temp Pulse Resp BP Pulse Ox 10/31/23 20:32 18 10/31/23 18:28 98.4 F 85 20 127/70 96 Intake and Output 10/31/23 10/31/23 11/01/23 14:59 22:59 06:59 Other: Weight 77.111 kg Results CBC & Chem 7: 11/01/23 03:20 11/01/23 03:20 Labs: Abnormal Lab Results - Last 24 Hours (Table) 10/31/23 Range/Units 19:50 Carbon Dioxide 36 H (22-30) mmol/L BUN 24 H (7-17) mg/dL
[2023-11-01 04:05] LABS: Basophils % (A) 0 %; Eosinophils # (A) 0.1 k/uL (0-0.7); Eosinophils % (A) 1 %; HCT 45.3 % (34.0-46.0); HGB 14.5 gm/dL (11.4-16.0); Lymphocytes # (A) 1.1 k/uL (1.0-4.8); Lymphocytes % (A) 10 %; MCH 30.5 pg (25.0-35.0); MCHC 32.1 g/dL (31.0-37.0); MCV 95.1 fL (80.0-100.0); Mean Platelet Volume 8.5; Monocytes # (A) 0.2 k/uL (0-1.0); Monocytes % (A) 2 %; Neutrophils # (A) 9.1 k/uL (1.3-7.7); Neutrophils % (A) 86 %; Platelet Count 322 k/uL (150-450); RBC 4.76 m/uL (3.80-5.40); WBC 10.6 k/uL (3.8-10.6)
[2023-11-01] MEDS ORDERED: BENZONATATE 100 MG CAP PO PRN (04:25)
--- NOTE | 2023-11-01 04:28 | P.CNPUL ---
History of Present Illness Consult date: 11/01/23 Requesting physician: Linn Sexton Reason for consult: COPD Chief complaint: Shortness of breath and persistent productive yellow/green cough History of present illness: Patient is a 87-year-old -[place] female with past medical history significant for severe oxygen and steroid dependent COPD, hyperlipidemia, hypertension, and remote ex-smoker. Patient does follow with Dr. Gilbert in the pulmonary office for management of her COPD. Recently seen in the pulmonary office last Wednesday for a persistent cough with yellow to green sputum production. She has had associated shortness of breath, chest tightness, and wheezing. Denies any chest pain or hemoptysis. Denies any fevers. Denies any known sick contacts. She did recently travel to [place] and back at the beginning of the month. She was given samples of Trelegy inhaler in the office. She has failed to have any improvement with outpatient treatment, patient was directed to the emergency room yesterday morning. Chest x-ray done on admission, does not show any focal infiltrates or evidence of pneumonia. There is hyp erinflation consistent with COPD. CBC unremarkable. No leukocytosis. BMP also unremarkable. Troponin less than 0.012. Nontoxic appearance. Currently being interviewed in the emergency department, room 3. She is sitting up in bed, on 2 L/min nasal cannula, in no acute distress. Hemodynamically stable. Review of Systems REVIEW OF SYSTEMS: CONSTITUTIONAL: Denies any recent significant weight loss or weight gain. EYES: Denies change in vision. EARS, NOSE, MOUTH, THROAT: Denies headaches, denies sore throat. CARDIOVASCULAR: Denies chest pain, palpitations or syncopal episodes. RESPIRATORY: See HPI GASTROINTESTINAL: Denies change in appetite, abdominal pain, nausea and vomiting, or diarrhea GENITOURINARY: Denies hematuria, denies infections. MUSKULOSKELETAL: Denies pain, denies swelling. INTEGUMENTARY: Denies rash, denies eczema. NEUROLOGICAL: Denies recent memory loss, no recent seizure activity. PSYCHIATRIC: Denies anxiety, denies depression. 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 Last Myocardial Infarction Date:: 40 years ago History of Any Multi-Drug Resistant Organisms: None Reported Past Surgical History: Cholecystectomy, Hysterectomy, Orthopedic Surgery Additional Past Surgical History / Comment(s): KNEE arthroscopy, COLONOSCOPY- LARGE POLYP REMOVED, EGD, cataracts, Right TKA (10/21/21) Past Anesthesia/Blood Transfusion Reactions: No Reported Reaction Additional Past Anesthesia/Blood Transfusion Reaction / Comment(s): No hx blood transfusion. Past Psychological History: No Psychological Hx Reported Smoking Status: Former smoker Past Alcohol Use History: None Reported Past Drug Use History: None Reported - Past Family History Sister(s) Family Medical History: Cancer Additional Family Medical History / Comment(s): #1 sister colon cancer, # 2 sister lung cancer. Father Family Medical History: Cancer Additional Family Medical History / Comment(s): Prostate cancer. Mother Family Medical History: Asthma Additional Family Medical History / Comment(s): Heart problems. Son(s) Additional Family Medical History / Comment(s): SCLERODERMA Medications and Allergies Home Medications Medication Instructions Recorded Confirmed Type Losartan Potassium 100 mg PO DAILY 10/30/14 11/01/23 History hydroCHLOROthiazide [Hydrodiuril] 25 mg PO DAILY #90 tab 09/30/22 11/01/23 Rx predniSONE 10 mg PO DAILY #90 tab 09/30/22 11/01/23 Rx Metoprolol Succinate (ER) [Toprol 50 mg PO DAILY 04/25/23 11/01/23 History XL] Zolpidem [Ambien] 2.5 mg PO HS PRN 04/25/23 11/01/23 History Fluticasone/Umeclidin/Vilanter 1 puff INHALATION RT-DAILY 11/01/23 11/01/23 History [Trelegy Ellipta 200-62.5-25] Allergies Allergy/AdvReac Type Severity Reaction Status Date / Time hydrocodone bitartrate AdvReac states Verified 11/01/23 09:31 [From Vicodin] "doesn't make me feel good" Physical Exam Vitals: Vital Signs Temp Pulse Resp BP Pulse Ox 11/01/23 02:58 68 16 131/71 98 11/01/23 01:44 64 17 129/67 98 10/31/23 23:45 73 18 156/85 99 10/31/23 21:00 71 19 148/82 100 10/31/23 20:32 18 10/31/23 18:28 98.4 F 85 20 127/70 96 Intake and Output 10/31/23 10/31/23 11/01/23 14:59 22:59 06:59 Other: Weight 77.111 kg GENERAL EXAM: Alert, 87-year-old -Croat[place] female, comfortable in no apparent distress. HEAD: Normocephalic and atraumatic EYES: Normal reaction of pupils, equal size. NOSE: Clear with pink turbinates. THROAT: No erythema or exudates. NECK: No masses, no JVD. CHEST: No chest wall deformity. LUNGS: Equal air entry with expiratory wheezes heard with forced expiration. On 2 L/m nasal cannula. No conversational dyspnea or accessory muscle use.. CVS: S1 and S2 normal with no audible murmur, regular rhythm. No extra heart sounds ABDOMEN: No hepatosplenomegaly, active bowel sounds, no guarding or rigidity. SPINE: No scoliosis or deformity SKIN: No rashes CENTRAL NERVOUS SYSTEM: No focal deficits, tone is normal in all 4 extremities. EXTREMITIES: There is no peripheral edema, clubbing, or cyanosis. Peripheral pulses are intact Results - Laboratory Findings CBC and BMP: 11/01/23 03:20 11/01/23 03:20 PT/INR, D-dimer PT 10.3 sec (10.0-12.5) 10/31/23 19:50 INR 0.9 (<1.2) 10/31/23 19:50 Abnormal lab findings: Abnormal Labs 10/31/23 11/01/23 19:50 03:20 Neutrophils # 9.1 H Carbon Dioxide 36 H BUN 24 H - Diagnostic Findings Chest x-ray: image reviewed Assessment and Plan Assessment: Acute COPD exacerbation, failed outpatient treatment, chest x-ray on arrival does not show any focal infiltrates or evidence of pneumonia, there is hyperinflation consistent with COPD. Acute on chronic hypoxemic respiratory failure, secondary to above Hypertension Hyperlipidemia History of severe oxygen and steroid dependent COPD, normally maintained on Breztri for maintenance, but recently given samples of Trelegy inhaler. Schatzki' ring status/post balloon dilation Remote ex-smoker Plan: Patient's medications, labs, chest x-ray reviewed Patient is reportedly being considered for possible bronchoscopy with BAL. N.p.o. diet after midnight In the meantime, continue combination of DuoNebs, Symbicort inhaler, and p.o. prednisone. Tessalon Perles added as needed for cough Further recommendations are forthcoming I have personally seen and examined the patient, performed the documentation and the assessment and plan as written. Number of minutes spent on the visit:20 This is a joint evaluation that was done along with the nurse practitioner. Patient is very well-known to me. She has advanced COPD and recently switch her to Trelegy Ellipta 1 puff a day. It seems that she is doing better while being on trilogy compared to [facility] [place] . However, she is having excessive respiratory secretions and congestion along with shortness of breath. The plan is to proceed with a bronchoscopy and perform another bronchoalveolar lavage to rule out any gram-negative chronic infections. She has been infected with Pseudomonas in the past. The patient be kept n.p.o. after midnight. Continue bronchodilators. Continue steroids. Add Ambien for steroid-induced insomnia. Will proceed with bronchoscopy in a.m. Time with Patient: Greater than 30
[2023-11-01 04:31] LABS: African American GFR (CKD) >90 (>60 ml/min/1.73 sqM); Anion Gap 4 mmol/L; Blood Urea Nitrogen 19 mg/dL (7-17); Calcium 9.3 mg/dL (8.4-10.2); Carbon Dioxide 32 mmol/L (22-30); Chloride 104 mmol/L (98-107); Glucose 123 mg/dL (74-99); Non-African American GFR(CKD) 83 (>60 ml/min/1.73 sqM); Potassium 3.9 mmol/L (3.5-5.1); Sodium 140 mmol/L (137-145)
[2023-11-01] MEDS ORDERED: ZOLPIDEM 5 MG TAB PO PRN (08:53)
[2023-11-01] MEDS: SYMBICORT 160-4.5 MCG INHALER INHALATION SCH (09:41)
[2023-11-01] MEDS: IPRATROPIUM-ALBUTEROL 3 ML NEB INHALATION SCH (09:41)
[2023-11-01] MEDS: predniSONE 20 MG TAB PO SCH (11:07)
[2023-11-01] MEDS: LORATADINE-PSEUDOEPH 5-120 MG 1 EACH TAB.ER.12H PO SCH (11:07)
[2023-11-01] MEDS: LOSARTAN 50 MG TAB PO SCH (12:05)
[2023-11-01] MEDS: METOPROLOL SUCCINATE (ER) 50 MG TAB.ER.24H PO SCH (12:06)
[2023-11-01] MEDS: hydroCHLOROthiazide 25 MG TAB PO SCH (12:06)
--- NOTE | 2023-11-01 15:15 | P.PN ---
Subjective Progress Note Date: 11/01/23 Hospital course: Patient is a very pleasant 87-year-old female with a past medical history of chronic hypoxic respiratory 2 L home with medical times, hypertension, hyperlipidemia, CAD, and gastric ulcers. She presented to the emergency department on 10/31/2023 with a chief complaint of cough. On arrival to the emergency department patient underwent evaluation. Vital signs upon arrival show blood pressure 127/70, heart rate 85, respiratory rate 20, temp 98.4 F, and SpO2 of 96% on 2 L. EKG was completed showing normal sinus rhythm at 77 bpm with no significant T wave or ST abnormalities showing no signs of acute ischemia. Chest x-ray completed negative for acute cardiopulmonary process. Labs were completed and reviewed. CBC and coagulation profile were unremarkable. BMP showing hypercarbia with bicarb of 36 and prerenal azotemia with BUN of 24 otherwise normal findings. Lactic acid normal findings at 0.8. Liver profile unremarkable. Troponin was negative at less than 0.012. Patient was admitted under services for acute COPD exacerbation with consultation to pulmonology. Patient was evaluated by stock sorter stating patient is being considered for possible bronchoscopy with BAL. Physical exam: Vital signs reviewed and stable. General: Nontoxic, no distress and appears stated age. Derm: Skin warm and dry, normal coloration for ethnicity. Head: Atraumatic, normocephalic and symmetric. Eyes: EOMs intact, no lid lag, and anicteric sclera Mouth: no lip lesions, mucus membranes moist Cardiovascular: regular rate and rhythm with normal S1S2, Ellik murmur, positive posterior tibial pulses bilaterally, and cap refill < 2 seconds. Lungs: Respirations even, regular, and unlabored on 2 L O2 via nasal cannula. Lungs equal air entry, soft diffuse expiratory wheezes. No rhonchi, rales, or crackles noted. No accessory muscle usage. Abdominal: soft, nontender to palpation, no guarding, no appreciable organomegaly Ext: ROM intact. No gross muscle atrophy, no edema, no contractures Neuro: Speech clear, face symmetrical and CN II-XII grossly intact with no noted focal neuro deficits Psych: Alert and oriented to person, place, time, and situation. Appropriate and pleasant affect. Assessment and Plan of Care: Acute COPD exacerbation Chronic hypoxic respiratory failure -Pulmonology following, planning to take patient for bronchoscopy with BAL -Oxygenation to be administered and titrated as needed to maintain SPO2 equal to or greater than 92% -Telemetry monitoring. -Monitor pulse-oximetry -Duonebs scheduled 4 times daily and as needed for SOB and/or wheezing -Incentive Spirometry -Steroids: Solu-Medrol 40 mg IVP every 8 hours -Symbicort 160-4.5 mcg inhaler 2 puffs twice daily Hypertension -Continue daily medication regimen with hydrochlorothiazide 25 mg daily, losartan 100 mg daily, and metoprolol 50 mg daily. Data and imaging reviewed: -Morning labs reviewed. CBC unremarkable. BMP showing hypercarbia with bicarb of 32 and elevated BUN of 19 otherwise normal findings. -Vital signs reviewed. Blood pressure 147/71, heart rate 73, respiratory rate 18, and SpO2 of 98% on 2 L - EKG was completed showing normal sinus rhythm at 77 bpm with no significant T wave or ST abnormalities showing no signs of acute ischemia. - Chest x-ray completed negative for acute cardiopulmonary process. CODE STATUS: Full code DVT prophylaxis: Lovenox Anticipated discharge date: Clinical course to determine Anticipated discharge place: Clinical course to determine Patient was seen independently by Nurse Pracitioner. This document was prepared using [employer] dictation software. Please allow for errors in fishing accessories maker, while rare they do occur. Dk Daigle NP rendered care for this patient independently, reviewed the findings and plan as documented in the note above. I did not physically speak with or examine the patient on this date. Objective - Vital Signs Vital signs: Vital Signs Temp 98.4 F 10/31/23 18:28 Pulse 73 11/01/23 07:30 Resp 18 11/01/23 07:30 BP 147/71 11/01/23 07:30 Pulse Ox 98 11/01/23 07:30 FiO2 Intake & Output 10/31/23 11/01/23 11/01/23 18:59 06:59 18:59 Weight 77.111 kg - Labs CBC & Chem 7: 11/01/23 03:20 11/01/23 03:20 Labs: Abnormal Lab Results - Last 24 Hours (Table) 10/31/23 11/01/23 11/01/23 Range/Units 19:50 03:20 03:20 Neutrophils # 9.1 H (1.3-7.7) k/uL Carbon Dioxide 36 H 32 H (22-30) mmol/L BUN 24 H 19 H (7-17) mg/dL Glucose 123 H (74-99) mg/dL
[2023-11-01] MEDS: methylPREDNISolone SOD SUCCI 40 MG/ML 1 ML VIAL IV SCH (15:27)
[2023-11-01] MEDS ORDERED: DILTIAZEM CD 120 MG CAP.ER.24H PO SCH (21:00)
[2023-11-01] MEDS: ZOLPIDEM 5 MG TAB PO PRN (22:12)
[2023-11-02] MEDS ORDERED: PANTOPRAZOLE 40 MG TABLET PO SCH (07:30)
[2023-11-02] MEDS ORDERED: LIDOCAINE 1% (10MG/ML) FOR IV START INTRADERMA PRN (07:44)
[2023-11-02] MEDS: ENOXAPARIN 40 MG/0.4 ML SYRINGE SQ SCH (09:04)
[2023-11-02] MEDS: LORazepam 2 MG/ML INJ IV STA ×2 (10:35→11:36)
--- NOTE | 2023-11-02 12:56 | P.PN ---
Subjective Progress Note Date: 11/02/23 Patient is a 87-year-old -[place] female with past medical history significant for severe oxygen and steroid dependent COPD, hyperlipidemia, hypertension, and remote ex-smoker. Patient does follow with Dr. Gilbert in the pulmonary office for management of her COPD. Recently seen in the pulmonary office last Wednesday for a persistent cough with yellow to green sputum production. She has had associated shortness of breath, chest tightness, and wheezing. Denies any chest pain or hemoptysis. Denies any fevers. Denies any known sick contacts. She did recently travel to [place] and back at the beginning of the month. She was given samples of Trelegy inhaler in the office. She has failed to have any improvement with outpatient treatment, patient was directed to the emergency room yesterday morning. Chest x-ray done on admission, does not show any focal infiltrates or evidence of pneumonia. There is hyperinflation consistent with COPD. CBC unremarkable. No leukocytosis. BMP also unremarkable. Troponin less than 0.012. Nontoxic appearance. Currently being interviewed in the emergency department, room 3. She is sitting up in bed, on 2 L/min nasal cannula, in no acute distress. Hemodynamically stable. On today's evaluation of 11/02/2023, the patient is essentially unchanged. Continues to have cough and congestion and the patient is currently n.p.o. awaiting a bronchoscopy for therapeutic airway suctioning endobronchial lavage. No new complaints otherwise for now. She is clinically stable and hemodynamically stable. She remains on bronchodilators and steroids. No major side effects of systemic steroids. She remains on Lovenox for DVT prophylaxis. She remains also on oxygen at 2 L with a pulse ox of 93%. No hemoptysis. No pleurisy. No other new complaints otherwise for now. Objective - Vital Signs Vital signs: Vital Signs Temp 97.7 F 11/02/23 08:00 Pulse 77 11/02/23 08:00 Resp 22 11/02/23 08:00 BP 133/69 11/02/23 08:00 Pulse Ox 98 11/02/23 08:11 FiO2 Intake & Output 11/01/23 11/02/23 11/02/23 18:59 06:59 18:59 Weight 77.111 kg Other: Voiding Method Toilet # Voids 2 - Exam GENERAL EXAM: Alert, 87-year-old -[place] female, comfortable in no apparent distress. HEAD: Normocephalic and atraumatic EYES: Normal reaction of pupils, equal size. NOSE: Clear with pink turbinates. THROAT: No erythema or exudates. NECK: No masses, no JVD. CHEST: No chest wall deformity. LUNGS: Equal air entry with expiratory wheezes heard with forced expiration. On 2 L/m nasal cannula. No conversational dyspnea or accessory muscle use.. CVS: S1 and S2 normal with no audible murmur, regular rhythm. No extra heart sounds ABDOMEN: No hepatosplenomegaly, active bowel sounds, no guarding or rigidity. SPINE: No scoliosis or deformity SKIN: No rashes CENTRAL NERVOUS SYSTEM: No focal deficits, tone is normal in all 4 extremities. EXTREMITIES: There is no peripheral edema, clubbing, or cyanosis. Peripheral pulses are intact - Labs CBC & Chem 7: 11/01/23 03:20 11/01/23 03:20 Assessment and Plan Assessment: Acute COPD exacerbation, failed outpatient treatment, chest x-ray on arrival does not show any focal infiltrates or evidence of pneumonia, there is hyperinflation consistent with COPD. Continues to have excessive chest congestion and mucus without ability to expectorate respiratory secretions. Rul e out recurrent gram-negative respiratory tract infection/pseudomonal infection. Acute on chronic hypoxemic respiratory failure, secondary to above Hypertension Hyperlipidemia History of severe oxygen and steroid dependent COPD, normally maintained on Breztri for maintenance, but recently given samples of Trelegy inhaler. Schatzki' ring status/post balloon dilation Remote ex-smoker Plan: Clinically stable Continue bronchodilators Continue IV Solu-Medrol keep the patient n.p.o. and the patient is going to undergo bronchoscopy endobronchial lavage today. The concern remains recurrent pseudomonal infection and will make further antibiotic adjustments based on the results of bronchial lavage.
--- NOTE | 2023-11-02 13:05 | P.PN ---
Subjective Progress Note Date: 11/02/23 Hospital course: Patient is a very pleasant 87-year-old female with a past medical history of chronic hypoxic respiratory 2 L home with medical times, hypertension, hyperlipidemia, CAD, and gastric ulcers. She presented to the emergency department on 10/31/2023 with a chief complaint of cough. On arrival to the emergency department patient underwent evaluation. Vital signs upon arrival show blood pressure 127/70, heart rate 85, respiratory rate 20, temp 98.4 F, and SpO2 of 96% on 2 L. EKG was completed showing normal sinus rhythm at 77 bpm with no significant T wave or ST abnormalities showing no signs of acute ischemia. Chest x-ray completed negative for acute cardiopulmonary process. Labs were completed and reviewed. CBC and coagulation profile were unremarkable. BMP showing hypercarbia with bicarb of 36 and prerenal azotemia with BUN of 24 otherwise normal findings. Lactic acid normal findings at 0.8. Liver profile unremarkable. Troponin was negative at less than 0.012. Patient was admitted under services for acute COPD exacerbation with consultation to pulmonology. Patient was evaluated by application systems architect and is scheduled to undergo bronchoscopy with BAL. Physical exam: Patient was seen and fully evaluated at bedside this morning. She remains on baseline 2 L O2 via nasal cannula and appears to be doing well. Patient is awaiting to be taken down for bronchoscopy with BAL with application systems architect later today. Vital signs reviewed and stable. General: Nontoxic, no distress and appears stated age. Derm: Skin warm and dry, normal coloration for ethnicity. Head: Atraumatic, normocephalic and symmetric. Eyes: EOMs intact, no lid lag, and anicteric sclera Mouth: no lip lesions, mucus membranes moist Cardiovascular: regular rate and rhythm with normal S1S2, Ellik murmur, positive posterior tibial pulses bilaterally, and cap refill < 2 seconds. Lungs: Respirations even, regular, and unlabored on 2 L O2 via nasal cannula. Lungs equal air entry, soft diffuse expiratory wheezes. No rhonchi, rales, or crackles noted. No accessory muscle usage. Abdominal: soft, nontender to palpation, no guarding, no appreciable organomegaly Ext: ROM intact. No gross muscle atrophy, no edema, no contractures Neuro: Speech clear, face symmetrical and CN II-XII grossly intact with no noted focal neuro deficits Psych: Alert and oriented to person, place, time, and situation. Appropriate and pleasant affect. Assessment and Plan of Care: Acute COPD exacerbation Chronic hypoxic respiratory failure -Pulmonology following, planning to take patient for bronchoscopy with BAL later today -Oxygenation to be administered and titrated as needed to maintain SPO2 equal to or greater than 92% -Telemetry monitoring. -Monitor pulse-oximetry -Duonebs scheduled 4 times daily and as needed for SOB and/or wheezing -Incentive Spirometry -Steroids: Solu-Medrol 40 mg IVP every 8 hours -Symbicort 160-4.5 mcg inhaler 2 puffs twice daily Hypertension -Continue daily medication regimen with hydrochlorothiazide 25 mg daily, losartan 100 mg daily, and metoprolol 50 mg daily. Data and imaging reviewed: -Labs reviewed. CBC unremarkable. BMP showing hypercarbia with bicarb of 32 and elevated BUN of 19 otherwise normal findings. -Vital signs reviewed. Blood pressure 133/69, heart rate 73, respiratory rate 17, temp 97.7 F, and SpO2 of 98% on baseline 2 L. CODE STATUS: Full code DVT prophylaxis: Lovenox Anticipated discharge date: Clinical course to determine Anticipated discharge place: Clinical course to determine Patient was seen independently by Nurse Pracitioner. This document was prepared using [employer] dictation software. Please allow for errors in instrument lens grinder, while rare they do occur. Dk Daigle NP rendered care for this patient independently, reviewed the findings and plan as documented in the note above. I did not physically speak with or examine the patient on this date. Objective - Vital Signs Vital signs: Vital Signs Temp 97.1 F L 11/02/23 02:00 Pulse 71 11/02/23 02:00 Resp 18 11/02/23 02:00 BP 129/78 11/02/23 02:00 Pulse Ox 98 11/02/23 08:11 FiO2 Intake & Output 11/01/23 11/02/23 11/02/23 18:59 06:59 18:59 Weight 77.111 kg - Labs CBC & Chem 7: 11/01/23 03:20 11/01/23 03:20
[2023-11-02] MEDS: IV FLUID CONTINUATION 1,000 ML IV ONE (13:59)
[2023-11-02] MEDS: LIDOCAINE 2% GLYDO JELLY 6 ML APPL TOPICAL ONE ×2 (14:04→14:11)
[2023-11-02] MEDS ORDERED: LABETALOL 5 MG/ML VIAL MDV ONE (14:04)
[2023-11-02] MEDS ORDERED: PROPOFOL 10 MG/ML 20 ML VIAL IV ONE (14:04)
[2023-11-02] MEDS: LIDOCAINE 2% INJ 20 MG/ML INTRATRACH ONE ×2 (14:05→14:12)
--- NOTE | 2023-11-02 14:21 | P.PCN ---
Date of Procedure: 11/02/23 Preoperative Diagnosis: Tracheobronchitis, COPD exacerbation Postoperative Diagnosis: Tracheobronchitis, COPD exacerbation, mucus plugging, tracheobronchomalacia Procedure(s) Performed: Flexible bronchoscopy, bronchial lavage of the right lung, therapeutic airway suctioning and removal of mucous plugs. Anesthesia: MAC Surgeon: Da Gilbert Pathology: other Condition: stable Disposition: floor Operative Findings: This is a flexible bronchoscopy that was done in the endoscopy suite for symptoms to open exacerbation and ongoing difficulties with shortness of breath and mucous plugging The flexible bronchoscope was inserted through the right nostril it was advanced into the posterior pharynx. Examination of the posterior pharynx and the larynx was done. The epiglottis, vallecula, the thyroid and the vocal cords were all within normal limits. A total of 2 cc of 1% lidocaine was applied to the vocal cords and following that the bronchoscope was advanced into the upper trachea. The patient had a mild component of tracheobronchomalacia. The bronchial mucosa and the tracheal mucosa was inflamed and friable. There was thick and purulent respiratory secretions and mucous plugs encountered throughout the trachea and bilateral mainstem bronchi. Therapeutic airway suctioning was done and the respiratory secretions were suctioned out without any major difficulties. Airway patency was achieved. The airway inspection included the entire trachea, bilateral mainstem bronchi, right upper lobe bronchus right middle lobe bronchus right lower lobe bronchus intermedius stent segments on the right on examination of the left side into the left mainstem bronchus, left upper and left lower lobe bronchus and various 8 segments on the left. The bronchial lavage of the right lung was done and approximately 30 cc of purulent material was aspirated. No complications. No endobronchial tumors or lesions. The bronchial mucosa was inflamed and airway patency was achieved after therapeutic airway suctioning. Patient will be transferred to recovery in stable condition. The bronchiolitis will be sent for microbial cultures and analysis with concerns of a gram- negative infection. We are
[2023-11-02] MEDS: LACTATED RINGERS 1,000 ML IV SCH (15:23)
[2023-11-03 08:48] VITALS: PULSE 85; RESP 18; TEMP 97.9
[2023-11-03 09:43] VITALS: BP 135/74
--- NOTE | 2023-11-03 11:45 | P.DS ---
Providers Date of admission: 10/31/23 22:17 Expected date of discharge: 11/03/23 Attending physician: Elvis Salguero MD Consults: 10/31/23 22:16 Consult Physician Urgent Consulting Provider: Da Gilbert Consult Reason/Comments: copd Do you want consulting provider notified?: Yes Primary care physician: Po Winchester MD Hospital Course: Discharge Diagnosis: Acute COPD exacerbation Chronic hypoxic respiratory failure Hypertension. Continue daily medication regimen with hydrochlorothiazide 25 mg daily, losartan 100 mg daily, and metoprolol 50 mg daily. Hospital course: Patient is a very pleasant 87-year-old female with a past medical history of chronic hypoxic respiratory 2 L home with medical times, hypertension, hyperlipidemia, CAD, and gastric ulcers. She presented to the emergency department on 10/31/2023 with a chief complaint of cough. On arrival to the emergency department patient underwent evaluation. Vital signs upon arrival show blood pressure 127/70, heart rate 85, respiratory rate 20, temp 98.4 F, and SpO2 of 96% on 2 L. EKG was completed showing normal sinus rhythm at 77 bpm with no significant T wave or ST abnormalities showing no signs of acute ischemia. Chest x-ray completed negative for acute cardiopulmonary process. Labs were completed and reviewed. CBC and coagulation profile were unremarkable. BMP showing hypercarbia with bicarb of 36 and prerenal azotemia with BUN of 24 otherwise normal findings. Lactic acid normal findings at 0.8. Liver profile unremarkable. Troponin was negative at less than 0.012. Patient was admitted under services for acute COPD exacerbation with consultation to pulmonology. Patient was evaluated by chief diversity officer and underwent bronchoscopy with BAL. Cultures were obtained and currently pending results. Patient now back at baseline respiratory status, wheezing has resolved. Patient cleared from pulmonology perspective recommending being discharged home with no medication changes and patient to return to prednisone 10 mg daily. Patient to follow-up outpatient in chief diversity officer office, chief diversity officer states he will follow-up with sputum culture results and notify patient if additional orders are indicated. Patient is medically stable for discharge home at this time and recommended to follow-up outpatient with her PCP in 1 to 2 days and with chief diversity officer in 1 to 2 weeks. Physical exam: Vital signs reviewed and stable. General: Nontoxic, no distress and appears stated age. Derm: Skin warm and dry, normal coloration for ethnicity. Head: Atraumatic, normocephalic and symmetric. Eyes: EOMs intact, no lid lag, and anicteric sclera Mouth: no lip lesions, mucus membranes moist Cardiovascular: regular rate and rhythm with normal S1S2, Ellik murmur, positive posterior tibial pulses bilaterally, and cap refill < 2 seconds. Lungs: Respirations even, regular, and unlabored on 2 L O2 via nasal cannula. Lungs equal air entry. No, wheezes, rhonchi, rales, or crackles noted. No accessory muscle usage. Abdominal: soft, nontender to palpation, no guarding, no appreciable organomegaly Ext: ROM intact. No gross muscle atrophy, no edema, no contractures Neuro: Speech clear, face symmetrical and CN II-XII grossly intact with no noted focal neuro deficits Psych: Alert and oriented to person, place, time, and situation. Appropriate and pleasant affect. A total of 34 minutes of time were spent preparing this complex discharge summary. Pt was discharged on 11/03/2023 at 11:41 AM Patient was seen independently by Nurse Practitioner. This document was prepared using [employer] dictation software. Please allow for errors in party host while rare they do occur. I reviewed the documentation as provided by the GIDEON above, who is the original author of this note. I agree with the documented assessment and plan, with the following changes: none Patient Condition at Discharge: Stable Plan - Discharge Summary Discharge Rx Participant: Yes New Discharge Prescriptions: Continue Losartan Potassium 100 mg PO DAILY predniSONE 10 mg PO DAILY #90 tab hydroCHLOROthiazide [Hydrodiuril] 25 mg PO DAILY #90 tab Zolpidem [Ambien] 2.5 mg PO HS PRN PRN Reason: Insomnia Metoprolol Succinate (ER) [Toprol XL] 50 mg PO DAILY Fluticasone/Umeclidin/Vilanter [Trelegy Ellipta 200-62.5-25] 1 puff INHALATION RT-DAILY Discharge Medication List Losartan Potassium 100 mg PO DAILY 10/30/14 [History] hydroCHLOROthiazide [Hydrodiuril] 25 mg PO DAILY #90 tab 09/30/22 [Rx] predniSONE 10 mg PO DAILY #90 tab 09/30/22 [Rx] Metoprolol Succinate (ER) [Toprol XL] 50 mg PO DAILY 04/25/23 [History] Zolpidem [Ambien] 2.5 mg PO HS PRN 04/25/23 [History] Fluticasone/Umeclidin/Vilanter [Trelegy Ellipta 200-62.5-25] 1 puff INHALATION RT-DAILY 11/01/23 [History] Follow up Appointment(s)/Referral(s): Po Winchester MD [Primary Care Provider] - 1-2 days (Patient to make appointment) Da Gilbert MD [STAFF PHYSICIAN] - 2 Weeks (Patient to make appointment) Patient Instructions/Handouts: *Surgery [facility] - Bronchoscopy Discharge Instructions, COPD (Chronic Obstructive Pulmonary Disease) (DC), Chronic Lung Disease and Infection Prevention (DC) Activity/Diet/Wound Care/Special Instructions: Activity: As tolerated. Take breaks as needed. Diet: Heart healthy and carb consistent diet. Avoid salts, or foods with hidden salts such as canned or boxed foods and frozen dinners. Extra salt makes your heart work harder and traps the fluid in your body for longer. Special Instructions: Take all of your medications as directed and remember to keep all of your doctor's appointments and follow-up as needed. As discussed with you at bedside, your sputum culture from bronchoscopy is pending. Dr. Gilbert will follow up with these results and notify you if any antibiotic needs. Pending these results no new medication changes and resume Prednisone 10 mg daily. Thank you for allowing us to participate in your care, it was truly a pleasure having you for our patient!!! . Discharge Disposition: HOME SELF-CARE
--- NOTE | 2023-11-03 13:19 | P.PN ---
Subjective Progress Note Date: 11/03/23 Patient is a 87-year-old -[place] female with past medical history significant for severe oxygen and steroid dependent COPD, hyperlipidemia, hypertension, and remote ex-smoker. Patient does follow with Dr. Gilbert in the pulmonary office for management of her COPD. Recently seen in the pulmonary office last Wednesday for a persistent cough with yellow to green sputum production. She has had associated shortness of breath, chest tightness, and wheezing. Denies any chest pain or hemoptysis. Denies any fevers. Denies any known sick contacts. She did recently travel to [place] and back at the beginning of the month. She was given samples of Trelegy inhaler in the office. She has failed to have any improvement with outpatient treatment, patient was directed to the emergency room yesterday morning. Chest x-ray done on admission, does not show any focal infiltrates or evidence of pneumonia. There is hyperinflation consistent with COPD. CBC unremarkable. No leukocytosis. BMP also unremarkable. Troponin less than 0.012. Nontoxic appearance. Currently being interviewed in the emergency department, room 3. She is sitting up in bed, on 2 L/min nasal cannula, in no acute distress. Hemodynamically stable. On today's evaluation of 11/02/2023, the patient is essentially unchanged. Continues to have cough and congestion and the patient is currently n.p.o. awaiting a bronchoscopy for therapeutic airway suctioning endobronchial lavage. No new complaints otherwise for now. She is clinically stable and hemodynamically stable. She remains on bronchodilators and steroids. No major side effects of systemic steroids. She remains on Lovenox for DVT prophylaxis. She remains also on oxygen at 2 L with a pulse ox of 93%. No hemoptysis. No pleurisy. No other new complaints otherwise for now. On 11/03/2023, the patient is being seen for a follow-up. The patient is feeling much better. She underwent a bronchoscopy and copious amounts of respiratory secretions was aspirated and therapeutic airway suctioning was done. Culture still pending for now. The patient is coughing some minimal amount of bloody mucus. Nevertheless, her cough is not congested. She is less short of breath. She denies having any specific complaints for now. Awake and alert and the patient is currently on oxygen at 2 L/min nasal cannula. Remains on DuoNeb updrafts and IV Solu-Medrol. Objective - Vital Signs Vital signs: Vital Signs Temp 97.9 F 11/03/23 07:09 Pulse 85 11/03/23 07:09 Resp 18 11/03/23 07:09 BP 135/74 11/03/23 09:18 Pulse Ox 96 11/03/23 07:09 FiO2 Intake & Output 11/02/23 11/03/23 11/03/23 18:59 06:59 18:59 Intake Total 200 Balance 200 Intake: IV 200 Other: Voiding Method Toilet Toilet # Voids 2 2 1 - Exam GENERAL EXAM: Alert, 87-year-old -[place] female, comfortable in no apparent distress. HEAD: Normocephalic and atraumatic EYES: Normal reaction of pupils, equal size. NOSE: Clear with pink turbinates. THROAT: No erythema or exudates. NECK: No masses, no JVD. CHEST: No chest wall deformity. LUNGS: Equal air entry with expiratory wheezes heard with forced expiration. On 2 L/m nasal cannula. No conversational dyspnea or accessory muscle use.. CVS: S1 and S2 normal with no audible murmur, regular rhythm. No extra heart sounds ABDOMEN: No hepatosplenomegaly, active bowel sounds, no guarding or rigidity. SPINE: No scoliosis or deformity SKIN: No rashes CENTRAL NERVOUS SYSTEM: No focal deficits, tone is normal in all 4 extremities. EXTREMITIES: There is no peripheral edema, clubbing, or cyanosis. Peripheral pulses are intact - Labs CBC & Chem 7: 11/01/23 03:20 11/01/23 03:20 Labs: Microbiology - Last 24 Hours (Table) 11/02/23 14:15 Gram Stain - Preliminary Bronchoalviolar Lavage - Right Assessment and Plan Assessment: Acute COPD exacerbation, failed outpatient treatment, chest x-ray on arrival does not show any focal infiltrates or evidence of pneumonia, there is hyperinflation consistent with COPD. Continues to have excessive chest c ongestion and mucus without ability to expectorate respiratory secretions. Rule out recurrent gram-negative respiratory tract infection/pseudomonal infection. The patient is post bronchoscopy and therapeutic airway suctioning and removal of copious amounts of respiratory secretions and mucous plugs. Acute on chronic hypoxemic respiratory failure, secondary to above, currently on 2 L of oxygen by nasal cannula. Hypertension Hyperlipidemia History of severe oxygen and steroid dependent COPD, normally maintained on Breztri for maintenance, but recently given samples of Trelegy inhaler. Schatzki' ring status/post balloon dilation Remote ex-smoker Plan: The patient is post bronchoscopy and therapeutic airway suctioning was done and a copious amount of respiratory secretions and mucous plugs were aspirated Awaiting the culture results from the bronchial lavage Clinically stable Continue bronchodilators The patient to be able to get discharged home today on Trelegy Ellipta 1 puff a day 100 mcg on a daily basis in addition to albuterol nebulized treatments up to 4 times a day and a maintenance prednisone of 10 mg p.o. daily. Will contact the patient with the results of BAL/bronchoalveolar lavage and decide if antibiotic treatment is needed The patient is clinically improved. The patient can be discharged home today to be followed up on outpatient basis.
== END 2023-11-03 14:22 | disposition home or self-care (01) ==
LOC: EC 18:20 → 4SSUR 22:17 → 1SOBS 11-01 19:59
PROVIDERS: ADMIT Internal Medicine; ATTEND Internal Medicine
DX: J44.1 Chronic obstructive pulmonary disease with (acute) exacerbation (principal); J96.21 Acute and chronic respiratory failure with hypoxia; J98.09 Other diseases of bronchus, not elsewhere classified; J39.8 Other specified diseases of upper respiratory tract; K22.2 Esophageal obstruction; E78.5 Hyperlipidemia, unspecified; I10 Essential (primary) hypertension; Z87.891 Personal history of nicotine dependence; Z99.81 Dependence on supplemental oxygen; Z79.52 Long term (current) use of systemic steroids; Z79.899 Other long term (current) drug therapy; Z88.5 Allergy status to narcotic agent
CPT/HCPCS: 96372; 96374; 96375; 96376 ×3; 99285; 36415; 94760; 93005; 80053; 80048; 83605; 84484; 85025 ×2; 85610; 85730; 87070; 87205; 87116; 87102; 87206; 71046; 31624; G0378 ×4; J2001; J2060; J1650; J2919 ×4; 87077; 87186

== ENCOUNTER 2023-11-14 09:05 | Emergency (ER) | payer MEDICARE, BC ==
--- NOTE | 2023-11-14 09:56 | ED ---
General Adult HPI - General Chief complaint: Chest Pain Stated complaint: Chest pain Time Seen by Provider: 11/14/23 09:10 Source: patient, RN notes reviewed, old records reviewed Mode of arrival: wheelchair Limitations: no limitations - History of Present Illness Initial comments: This is an 87-year-old female who states she was started on antibiotics 4 days ago for a pneumonia. Patient states she had a bronchoscopy done by Dr. Gilbert and was sent home with antibiotics. Patient states the symptoms have not improved however she states she now has chest pain for the last 3 days. Patient states is there constantly but much worse when she coughs. Patient states her cough is not improved and she does feel short of breath. Patient denies any f ever or chills. Patient denies any abdominal pain patient is any nausea vomiting. Patient has any swelling to the legs or calf tenderness. - Related Data Home Medications Medication Instructions Recorded Confirmed Losartan Potassium 100 mg PO DAILY 10/30/14 11/14/23 Metoprolol Succinate (ER) [Toprol 50 mg PO DAILY 04/25/23 11/14/23 XL] Zolpidem [Ambien] 2.5 mg PO HS PRN 04/25/23 11/14/23 Fluticasone/Umeclidin/Vilanter 1 puff INHALATION RT-DAILY 11/01/23 11/14/23 [Trelegy Ellipta 200-62.5-25] Ciprofloxacin HCl [Cipro] 750 mg PO BID 11/14/23 11/14/23 Previous Rx's Medication Instructions Recorded hydroCHLOROthiazide [Hydrodiuril] 25 mg PO DAILY #90 tab 09/30/22 predniSONE 10 mg PO DAILY #90 tab 09/30/22 Allergies Allergy/AdvReac Type Severity Reaction Status Date / Time hydrocodone bitartrate AdvReac states Verified 11/14/23 11:43 [From Vicodin] "doesn't make me feel good" Review of Systems ROS Statement: Those systems with pertinent positive or pertinent negative responses have been documented in the HPI. ROS Other: All systems not noted in ROS Statement are negative. 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 Last Myocardial Infarction Date:: 40 years ago History of Any Multi-Drug Resistant Organisms: None Reported Past Surgical History: Cholecystectomy, Hysterectomy, Orthopedic Surgery Additional Past Surgical History / Comment(s): KNEE arthroscopy, COLONOSCOPY- LARGE POLYP REMOVED, EGD, cataracts, Right TKA (10/21/21) Past Anesthesia/Blood Transfusion Reactions: No Reported Reaction Additional Past Anesthesia/Blood Transfusion Reaction / Comment(s): No hx blood transfusion. Past Psychological History: No Psychological Hx Reported Smoking Status: Former smoker Past Alcohol Use History: None Reported Past Drug Use History: None Reported - Past Family History Sister(s) Family Medical History: Cancer Additional Family Medical History / Comment(s): #1 sister colon cancer, # 2 sister lung cancer. Father Family Medical History: Cancer Additional Family Medical History / Comment(s): Prostate cancer. Mother Family Medical History: Asthma Additional Family Medical History / Comment(s): Heart problems. Son(s) Additional Family Medical History / Comment(s): SCLERODERMA General Exam - General Exam Comments Initial Comments: GENERAL: Patient is well-developed and well-nourished. Patient is nontoxic and well- hydrated and is in mild distress. ENT: Neck is soft and supple. No significant lymphadenopathy is noted. Oropharynx is clear. Moist mucous membranes. Neck has full range of motion without eliciting any pain. EYES: The sclera were anicteric and conjunctiva were pink and moist. Extraocular movements were intact and pupils were equal round and reactive to light. Eyelids were unremarkable. PULMONARY: Patient has rhonchi bilaterally but much worse on the left than the right CARDIOVASCULAR: There is a regular rate and rhythm without any murmurs gallops or rubs. ABDOMEN: Soft and nontender with normal bowel sounds. SKIN: Skin is clear with no lesions or rashes and otherwise unremarkable. NEUROLOGIC: Patient is alert and oriented x3. Cranial nerves II through XII are grossly intact. Motor and sensory are also intact. Normal speech, volume and content. Symmetrical smile. MUSCULOSKELETAL: Normal extremities with adequate strength and full range of motion. LYMPHATICS: No significant lymphadenopathy is noted PSYCHIATRIC: Normal psychiatric evaluation. Limitations: no limitations Course Vital Signs 11/14/23 11/14/23 11/14/23 09:05 11:50 12:53 Temperature 98.0 F Pulse Rate 69 75 78 Respiratory 18 16 Rate Blood Pressure 128/78 132/70 142/81 O2 Sat by Pulse 94 L 97 97 Oximetry Medical Decision Making - Medical Decision Making EKG is interpreted by myself but EKG shows a sinus rhythm at 69 bpm parables 172 QRS is 88 QT interval 395 QTc is 415. Patient's EKG shows no ST segment ovation or depression. Was pt. sent in by a medical professional or institution (, PA, PROGRAM SPECIALIST, urgent care, hospital, or long-term...) When possible be specific @ -No Did you speak to anyone other than the patient for history (EMS, parent, family, police, friend...)? What history was obtained from this source @ -No Did you review nursing and triage notes (agree or disagree)? Why? @ -I reviewed and agree with nursing and triage notes Were old charts reviewed (outside hosp., previous admission, EMS record, old EKG, old radiological studies, urgent care reports/EKG's, long-term records)? Report findings @ -No old charts were reviewed Differential Diagnosis (chest pain, altered mental status, abdominal pain women, abdominal pain men, vaginal bleeding, weakness, fever, dyspnea, syncope, headache, dizziness, GI bleed, back pain, seizure, CVA, palpatations, mental health, musculoskeletal)? @ -Differential Dyspnea: Coronary syndrome, arrhythmia, tamponade, asthma, COPD, pulmonary embolism, pneumonia, pneumothorax, pulmonary effusion, anaphylaxis, diabetic ketoacidosis, flailed chest, pulmonary contusion, diaphragmatic rupture, anemia, neuromusc ular, this is not meant to be an all-inclusive list. EKG interpreted by me (3pts min.). @ -As above X-rays interpreted by me (1pt min.). @ -Chest x-ray shows no acute abnormality CT interpreted by me (1pt min.). @ -None done U/S interpreted by me (1pt. min.). @ -None done What testing was considered but not performed or refused? (CT, X-rays, U/S, labs)? Why? @ -None What meds were considered but not given or refused? Why? @ -None Did you discuss the management of the patient with other professionals (professionals i.e. , PA, PROGRAM SPECIALIST, lab, RT, psych nurse, social science research assistant, recreation activities coordinator, teacher, sales officer, case management associate)? Give summary @ -No Was smoking cessation discussed for >3mins.? @ -No Was critical care preformed (if so, how long)? @ -No Were there social determinants of health that impacted care today? How? (Homelessness, low income, unemployed, alcoholism, drug addiction, transportatio n, low edu. Level, literacy, decrease access to med. care, care home, rehab)? @ -No Was there de-escalation of care discussed even if they declined (Discuss DNR or withdrawal of care, Hospice)? DNR status @ -No What co-morbidities impacted this encounter? (DM, HTN, Smoking, COPD, CAD, Cancer, CVA, ARF, Chemo, Hep., AIDS, mental health diagnosis, sleep apnea, morbid obesity)? @ -None Was patient admitted / discharged? Hospital course, mention meds given and route, prescriptions, significant lab abnormalities, going to OR and other pertinent info. @ -I went back into the room and went over the results with the patient. Patient was feeling fine at this time oxygenating in the upper 90s and stated s he will call Dr. Gilbert tomorrow Undiagnosed new problem with uncertain prognosis? @ -No Drug Therapy requiring intensive monitoring for toxicity (Heparin, Nitro, Insulin, Cardizem)? @ -No Were any procedures done? @ -No Diagnosis/symptom? @ -Dyspnea Acute, or Chronic, or Acute on Chronic? @ -Acute Uncomplicated (without systemic symptoms) or Complicated (systemic symptoms)? @ -Complicated Side effects of treatment? @ -No Exacerbation, Progression, or Severe Exacerbation? @ -No Poses a threat to life or bodily function? How? (Chest pain, [place], NE, pneumonia, PE, COPD, DKA, ARF, appy, cholecystitis, CVA, Diverticulitis, Homicidal, Suicidal, threat to staff... and all critical care pts) @ -No - Lab Data Result diagrams: 11/14/23 11:01 11/14/23 11:01 Lab Results 11/14/23 11/14/23 11/14/23 Range/Units 11:01 11:01 11:01 WBC 13.1 H (3.8-10.6) k/uL RBC 4.25 (3.80-5.40) m/uL Hgb 12.9 (11.4-16.0) gm/dL Hct 39.8 (34.0-46.0) % MCV 93.7 (80.0-100.0) fL MCH 30.5 (25.0-35.0) pg MCHC 32.5 (31.0-37.0) g/dL RDW 13.4 (11.5-15.5) % Plt Count 370 (150-450) k/uL MPV 9.1 Neutrophils % 87 % Lymphocytes % 8 % Monocytes % 4 % Eosinophils % 1 % Basophils % 0 % Neutrophils # 11.4 H (1.3-7.7) k/uL Lymphocytes # 1.0 (1.0-4.8) k/uL Monocytes # 0.5 (0-1.0) k/uL Eosinophils # 0.1 (0-0.7) k/uL Basophils # 0.0 (0-0.2) k/uL PT 10.9 (10.0-12.5) sec INR 1.0 (<1.2) APTT 20.3 L (22.0-30.0) sec Sodium 137 (137-145) mmol/L Potassium 4.2 (3.5-5.1) mmol/L Chloride 104 (98-107) mmol/L Carbon Dioxide 33 H (22-30) mmol/L Anion Gap 0 mmol/L BUN 20 H (7-17) mg/dL Creatinine 0.60 (0.52-1.04) mg/dL Est GFR (CKD-EPI)AfAm >90 (>60 ml/min/1.73 sqM) Est GFR (CKD-EPI)NonAf 84 (>60 ml/min/1.73 sqM) Glucose 102 H (74-99) mg/dL Plasma Lactic Acid Ajce (0.7-2.0) mmol/L Calcium 9.1 (8.4-10.2) mg/dL Magnesium 2.1 (1.6-2.3) mg/dL Total Bilirubin 1.0 (0.2-1.3) mg/dL AST 33 (14-36) U/L ALT 16 (4-34) U/L Alkaline Phosphatase 47 (38-126) U/L Troponin I (0.000-0.034) ng/mL Total Protein 6.3 (6.3-8.2) g/dL Albumin 3.9 (3.5-5.0) g/dL 11/14/23 11/14/23 Range/Units 11:01 11:01 WBC (3.8-10.6) k/uL RBC (3.80-5.40) m/uL Hgb (11.4-16.0) gm/dL Hct (34.0-46.0) % MCV (80.0-100.0) fL MCH (25.0-35.0) pg MCHC (31.0-37.0) g/dL RDW (11.5-15.5) % Plt Count (150-450) k/uL MPV Neutrophils % % Lymphocytes % % Monocytes % % Eosinophils % % Basophils % % Neutrophils # (1.3-7.7) k/uL Lymphocytes # (1.0-4.8) k/uL Monocytes # (0-1.0) k/uL Eosinophils # (0-0.7) k/uL Basophils # (0-0.2) k/uL PT (10.0-12.5) sec INR (<1.2) APTT (22.0-30.0) sec Sodium (137-145) mmol/L Potassium (3.5-5.1) mmol/L Chloride (98-107) mmol/L Carbon Dioxide (22-30) mmol/L Anion Gap mmol/L BUN (7-17) mg/dL Creatinine (0.52-1.04) mg/dL Est GFR (CKD-EPI)AfAm (>60 ml/min/1.73 sqM) Est GFR (CKD-EPI)NonAf (>60 ml/min/1.73 sqM) Glucose (74-99) mg/dL Plasma Lactic Acid Jace 1.5 (0.7-2.0) mmol/L Calcium (8.4-10.2) mg/dL Magnesium (1.6-2.3) mg/dL Total Bilirubin (0.2-1.3) mg/dL AST (14-36) U/L ALT (4-34) U/L Alkaline Phosphatase (38-126) U/L Troponin I <0.012 (0.000-0.034) ng/mL Total Protein (6.3-8.2) g/dL Albumin (3.5-5.0) g/dL Disposition Clinical Impression: Dyspnea, unspecified Disposition: HOME SELF-CARE Condition: Good Instructions (If sedation given, give patient instructions): Dyspnea (ED) Is patient prescribed a controlled substance at d/c from ED?: No Referrals: Po Winchester MD [Primary Care Provider] - 1-2 days Time of Disposition: 12:48
--- NOTE | 2023-11-14 10:05 | XR ---
EXAMINATION TYPE: XR chest 2V DATE OF EXAM: 11/14/2023 COMPARISON: 10/31/2023 HISTORY: Difficulty breathing TECHNIQUE: Frontal and lateral views of the chest are obtained. FINDINGS: There is no focal air space opacity, pleural effusion, or pneumothorax seen. The cardiac silhouette size is within normal limits. There is mild degenerative change of the left glenohumeral j oint IMPRESSION: No acute cardiopulmonary process.
[2023-11-14 11:25] LABS: ALT 16 U/L (4-34); African American GFR (CKD) >90 (>60 ml/min/1.73 sqM); Anion Gap 0 mmol/L; Blood Urea Nitrogen 20 mg/dL (7-17); Calcium 9.1 mg/dL (8.4-10.2); Carbon Dioxide 33 mmol/L (22-30); Chloride 104 mmol/L (98-107); Glucose 102 mg/dL (74-99); Non-African American GFR(CKD) 84 (>60 ml/min/1.73 sqM); Sodium 137 mmol/L (137-145)
[2023-11-14 11:26] LABS: AST 33 U/L (14-36); Albumin 3.9 g/dL (3.5-5.0); Alkaline Phosphatase 47 U/L (38-126); Magnesium 2.1 mg/dL (1.6-2.3); Potassium 4.2 mmol/L (3.5-5.1); Total Protein 6.3 g/dL (6.3-8.2)
[2023-11-14 11:39] LABS: Basophils % (A) 0 %; Eosinophils # (A) 0.1 k/uL (0-0.7); Eosinophils % (A) 1 %; HCT 39.8 % (34.0-46.0); HGB 12.9 gm/dL (11.4-16.0); Lymphocytes % (A) 8 %; MCH 30.5 pg (25.0-35.0); MCHC 32.5 g/dL (31.0-37.0); MCV 93.7 fL (80.0-100.0); Mean Platelet Volume 9.1; Monocytes # (A) 0.5 k/uL (0-1.0); Monocytes % (A) 4 %; Neutrophils # (A) 11.4 k/uL (1.3-7.7); Neutrophils % (A) 87 %; Platelet Count 370 k/uL (150-450); Prothrombin Time 10.9 sec (10.0-12.5); RBC 4.25 m/uL (3.80-5.40); RDW 13.4 % (11.5-15.5); WBC 13.1 k/uL (3.8-10.6)
[2023-11-14 11:44] LABS: Partial Thromboplastin Time 20.3 sec (22.0-30.0)
[2023-11-14 12:35] VITALS: RESP 16
[2023-11-14 13:24] VITALS: BP 142/81; PULSE 78; TEMP 98.9
== END 2023-11-14 13:09 | disposition home or self-care (01) ==
LOC: EC 09:05
DX: R06.00 Dyspnea, unspecified (principal); Z87.891 Personal history of nicotine dependence; Z88.5 Allergy status to narcotic agent; Z90.49 Acquired absence of other specified parts of digestive tract
CPT/HCPCS: 36415; 71046; 80053; 83605; 83735; 84484; 85025; 85610; 85730; 87040; 93005; 99285

== ENCOUNTER 2024-05-02 20:57 | Inpatient (IN) | payer MEDICARE, BC ==
--- NOTE | 2024-05-02 21:29 | ED ---
General Adult HPI - General Chief complaint: Fever Stated complaint: Fever Time Seen by Provider: 05/02/24 21:06 Source: EMS Mode of arrival: EMS - History of Present Illness Initial comments: Dictation was produced using [employer] dictation software. please excuse any grammatical, word or spelling errors. Chief Complaint: 88-year-old female history of asthma and COPD presents with fever History of Present Illness: Patient is an 88-year-old female presents to the emergency department with fever. She was at home where she lives at assisted living facility. States that she was feeling okay today when all of a sudden she felt hot. She notified assisted living facility staff that she was not feeling well feeling febrile. EMS was called and patient was brought to the emergency department. Patient states she has had a persistent cough for quite some time. She was hospitalized recently put on antibiotics. She has not remember what the antibiotics were. Denies any abdominal pain. No diarrhea. No rash. The ROS documented in this emergency department record has been reviewed and confirmed by me. Those systems with pertinent positive or negative responses have been documented in the HPI. All other systems are other negative and/or noncontributory. - Related Data Home Medications Medication Instructions Recorded Confirmed Losartan Potassium 100 mg PO DAILY 10/30/14 11/14/23 Metoprolol Succinate (ER) [Toprol 50 mg PO DAILY 04/25/23 11/14/23 XL] Zolpidem [Ambien] 2.5 mg PO HS PRN 04/25/23 11/14/23 Fluticasone/Umeclidin/Vilanter 1 puff INHALATION RT-DAILY 11/01/23 11/14/23 [Trelegy Ellipta 200-62.5-25] Ciprofloxacin HCl [Cipro] 750 mg PO BID 11/14/23 11/14/23 Previous Rx's Medication Instructions Recorded hydroCHLOROthiazide [Hydrodiuril] 25 mg PO DAILY #90 tab 09/30/22 predniSONE 10 mg PO DAILY #90 tab 09/30/22 Allergies Allergy/AdvReac Type Severity Reaction Status Date / Time hydrocodone bitartrate AdvReac states Verified 05/02/24 21:09 [From Vicodin] "doesn't make me feel good" Review of Systems ROS Statement: Those systems with pertinent positive or pertinent negative responses have been documented in the HPI. ROS Other: All systems not noted in ROS Statement are negative. 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 Last Myocardial Infarction Date:: 40 years ago History of Any Multi-Drug Resistant Organisms: None Reported Past Surgical History: Cholecystectomy, Hysterectomy, Orthopedic Surgery Additional Past Surgical History / Comment(s): KNEE arthroscopy, COLONOSCOPY- LARGE POLYP REMOVED, EGD, cataracts, Right TKA (10/21/21) Past Anesthesia/Blood Transfusion Reactions: No Reported Reaction Additional Past Anesthesia/Blood Transfusion Reaction / Comment(s): No hx blood transfusion. Past Psychological History: No Psychological Hx Reported Smoking Status: Former smoker Past Alcohol Use History: None Reported Past Drug Use History: None Reported - Past Family History Sister(s) Family Medical History: Cancer Additional Family Medical History / Comment(s): #1 sister colon cancer, # 2 sister lung cancer. Father Family Medical History: Cancer Additional Family Medical History / Comment(s): Prostate cancer. Mother Family Medical History: Asthma Additional Family Medical History / Comment(s): Heart problems. Son(s) Additional Family Medical History / Comment(s): SCLERODERMA General Exam - General Exam Comments Initial Comments: PHYSICAL EXAM: General Impression: Alert and oriented x3, not in acute distress HEENT: Normocephalic atraumatic, extra-ocular movements intact, pupils equal and reactive to light bilaterally, mucous membranes moist. Cardiovascular: Heart regular rate and rhythm Chest: Able to complete full sentences, no retractions, no tachypnea Abdomen: abdomen soft, non-tender, non-distended, no organomegaly Musculoskeletal: Pulses present and equal in all extremities, no peripheral edema Motor: no focal deficits noted Neurological: CN II-XII grossly intact, no focal motor or sensory deficits noted Skin: Intact with no visualized rashes Psych: Normal affect and mood Course Vital Signs 05/02/24 05/02/24 05/02/24 20:59 21:07 22:00 Temperature 101.5 F H Pulse Rate 101 H 85 Respiratory 18 18 18 Rate Blood Pressure 134/64 137/74 O2 Sat by Pulse 97 97 Oximetry 05/02/24 05/03/24 23:00 00:06 Temperature 98.6 F Pulse Rate 81 78 Respiratory 18 18 Rate Blood Pressure 118/58 113/60 O2 Sat by Pulse 97 97 Oximetry EKG Findings - EKG Comments: EKG Findings:: My EKG interpretation: Ventricular rate 95, sinus rhythm,. 161, QRS 84, QTc 416. No MI prolongation, no QTC prolongation, no ST or T-wave changes notedOverall, this EKG is unremarkable Medical Decision Making - Medical Decision Making Was pt. sent in by a medical professional or institution (, PA, RESOURCE CENTER TEACHER, urgent care, hospital, or [place] [facility] facility...) When possible be specific @ -No Did you speak to anyone other than the patient for history (EMS, parent, family, police, friend...)? What history was obtained from this source @ -No Did you review nursing and triage notes (agree or disagree)? Why? @ -I reviewed and agree with nursing and triage notes Were old charts reviewed (outside hosp., previous admission, EMS record, old EKG, old radiological studies, urgent care reports/EKG's, [place] health care facility records)? Report findings @ -No old charts were reviewed Differential Diagnosis (chest pain, altered mental status, abdominal pain women, abdominal pain men, vaginal bleeding, musculoskeletal, weakness, fever, dyspnea, syncope, headache, dizziness, GI bleed, back pain, seizure, CVA, palpatations, mental health)? @ -Differential Dyspnea: Coronary syndrome, arrhythmia, tamponade, asthma, COPD, pulmonary embolism, pneumonia, pneumothorax, pulmonary effusion, anaphylaxis, diabetic ketoacidosis, flailed chest, pulmonary contusion, diaphragmatic rupture, anemia, neuromusc ular, this is not meant to be an all-inclusive list. EKG interpreted by me (3pts min.). @ -See above X-rays interpreted by me (1pt min.). @ -Chest x-ray shows pneumonia CT interpreted by me (1pt min.). @ -None done U/S interpreted by me (1pt. min.). @ -None done What testing was considered but not performed or refused? (CT, X-rays, U/S, labs)? Why? @ -None What meds were considered but not given or refused? Why? @ -None Was smoking cessation discussed for >3mins.? @ -No Were there social determinants of health that impacted care today? How? (Homelessness, low income, unemployed, alcoholism, drug addiction, transportation, low edu. Level, literacy, decrease access to med. care, group home, rehab)? @ -No Was there de-escalation of care discussed even if they declined (Discuss DNR or withdrawal of care, Hospice)? DNR status @ -No What co-morbidities impacted this encounter? (DM, HTN, Smoking, COPD, CAD, Cancer, CVA, ARF, Chemo, Hep., AIDS, mental health diagnosis, sleep apnea, morbid obesity)? @ -None Was patient admitted / discharged? Hospital course, mention meds given and route , prescriptions, significant lab abnormalities, going to OR and other pertinent info. @ -88-year-old female presents to the emergency department for fever and cough. She has been having symptoms of chronic pneumonia. Vital signs upon arrival shows temperature of 1.5. Not hypotensive laboratory evaluation obtained. Leukocytosis of 18.8. Rest of labs within acceptable limits. No lactic acidos is. Patient not hypotensive. Patient does not meet severe sepsis criteria. Patient started on antibiotics. Will be admitted with consultation to pulmonology Did you discuss the management of the patient with other professionals (professionals i.e. , PA, RESOURCE CENTER TEACHER, lab, RT, psych nurse, forensic social worker, patrol commander, teacher, complaint evaluation officer, case repairer)? Give summary @ -Case discussed with hospitalist for admission Was critical care preformed (if so, how long)? @ -No Undiagnosed new problem with uncertain prognosis? @ -No Drug Therapy requiring intensive monitoring for toxicity (Heparin, Nitro, In sulin, Cardizem)? @ -No Were any procedures done? @ -No Diagnosis/symptom? Acute, or Chronic, or Acute on Chronic? Uncomplicated (without systemic symptoms) or Complicated (systemic symptoms)? @ -Pneumonia Side effects of treatment? @ -No Exacerbation, Progression, or Severe Exacerbation? @ -No Poses a threat to life or bodily function? How? (Chest pain, [place], [place], pneumonia, PE, COPD, DKA, ARF, appy, cholecystitis, CVA, Diverticulitis, Homicidal, Suicidal, threat to staff... and all critical care pts) @ -yes - Lab Data Result diagrams: 05/02/24 21:33 05/02/24 21:33 Lab Results 05/02/24 05/02/24 05/02/24 Range/Units 21:33 21:33 21:33 WBC 18.8 H (3.8-10.6) k/uL RBC 3.77 L (3.80-5.40) m/uL Hgb 11.4 (11.4-16.0) gm/dL Hct 35.2 (34.0-46.0) % MCV 93.4 (80.0-100.0) fL MCH 30.1 (25.0-35.0) pg MCHC 32.2 (31.0-37.0) g/dL RDW 12.2 (11.5-15.5) % Plt Count 555 H (150-450) k/uL MPV 7.4 Neutrophils % 84 % Lymphocytes % 10 % Monocytes % 4 % Eosinophils % 1 % Basophils % 0 % Neutrophils # 15.8 H (1.3-7.7) k/uL Lymphocytes # 1.9 (1.0-4.8) k/uL Monocytes # 0.7 (0-1.0) k/uL Eosinophils # 0.3 (0-0.7) k/uL Basophils # 0.0 (0-0.2) k/uL Sodium 137 (137-145) mmol/L Potassium 3.5 (3.5-5.1) mmol/L Chloride 101 (98-107) mmol/L Carbon Dioxide 32 H (22-30) mmol/L Anion Gap 4 mmol/L BUN 17 (7-17) mg/dL Creatinine 0.77 (0.52-1.04) mg/dL Est GFR (CKD-EPI)AfAm 81 (>60 ml/min/1.73 sqM) Est GFR (CKD-EPI)NonAf 70 (>60 ml/min/1.73 sqM) Glucose 96 (74-99) mg/dL Plasma Lactic Acid Jace 1.3 (0.7-2.0) mmol/L Calcium 8.6 (8.4-10.2) mg/dL Magnesium 1.7 (1.6-2.3) mg/dL Total Bilirubin 0.5 (0.2-1.3) mg/dL AST 24 (14-36) U/L ALT 12 (4-34) U/L Alkaline Phosphatase 54 (38-126) U/L Total Protein 5.7 L (6.3-8.2) g/dL Albumin 3.1 L (3.5-5.0) g/dL Influenza Type A (PCR) (Not Detectd) Influenza Type B (PCR) (Not Detectd) RSV (PCR) (Not Detectd) SARS-CoV-2 (PCR) (Not Detectd) 05/02/24 Range/Units 21:33 WBC (3.8-10.6) k/uL RBC (3.80-5.40) m/uL Hgb (11.4-16.0) gm/dL Hct (34.0-46.0) % MCV (80.0-100.0) fL MCH (25.0-35.0) pg MCHC (31.0-37.0) g/dL RDW (11.5-15.5) % Plt Count (150-450) k/uL MPV Neutrophils % % Lymphocytes % % Monocytes % % Eosinophils % % Basophils % % Neutrophils # (1.3-7.7) k/uL Lymphocytes # (1.0-4.8) k/uL Monocytes # (0-1.0) k/uL Eosinophils # (0-0.7) k/uL Basophils # (0-0.2) k/uL Sodium (137-145) mmol/L Potassium (3.5-5.1) mmol/L Chloride (98-107) mmol/L Carbon Dioxide (22-30) mmol/L Anion Gap mmol/L BUN (7-17) mg/dL Creatinine (0.52-1.04) mg/dL Est GFR (CKD-EPI)AfAm (>60 ml/min/1.73 sqM) Est GFR (CKD-EPI)NonAf (>60 ml/min/1.73 sqM) Glucose (74-99) mg/dL Plasma Lactic Acid Jace (0.7-2.0) mmol/L Calcium (8.4-10.2) mg/dL Magnesium (1.6-2.3) mg/dL Total Bilirubin (0.2-1.3) mg/dL AST (14-36) U/L ALT (4-34) U/L Alkaline Phosphatase (38-126) U/L Total Protein (6.3-8.2) g/dL Albumin (3.5-5.0) g/dL Influenza Type A (PCR) Not Detected (Not Detectd) Influenza Type B (PCR) Not Detected (Not Detectd) RSV (PCR) Not Detected (Not Detectd) SARS-CoV-2 (PCR) Not Detected (Not Detectd) Disposition Clinical Impression: Pneumonia Disposition: ADMITTED IP TO THIS HOSP Condition: Fair Referrals: Da Gilbert MD [Primary Care Provider] - 1-2 days Decision Time: 01:41
[2024-05-02 21:56] LABS: Basophils % (A) 0 %; Eosinophils # (A) 0.3 k/uL (0-0.7); Eosinophils % (A) 1 %; HCT 35.2 % (34.0-46.0); HGB 11.4 gm/dL (11.4-16.0); Lymphocytes # (A) 1.9 k/uL (1.0-4.8); Lymphocytes % (A) 10 %; MCH 30.1 pg (25.0-35.0); MCHC 32.2 g/dL (31.0-37.0); MCV 93.4 fL (80.0-100.0); Mean Platelet Volume 7.4; Monocytes # (A) 0.7 k/uL (0-1.0); Monocytes % (A) 4 %; Neutrophils # (A) 15.8 k/uL (1.3-7.7); Neutrophils % (A) 84 %; Platelet Count 555 k/uL (150-450); RBC 3.77 m/uL (3.80-5.40); RDW 12.2 % (11.5-15.5); WBC 18.8 k/uL (3.8-10.6)
--- NOTE | 2024-05-02 22:07 | XR ---
EXAMINATION TYPE: XR chest 2V DATE OF EXAM: 05/02/2024 9:58 PM COMPARISON: Chest radiographs from 11/14/2023 CLINICAL INDICATION: Female, 88 years old with history of fever, cough; [facility] TECHNIQUE: XR chest 2V Frontal and lateral views of the chest. FINDINGS: Lungs/Pleura: There is no evidence of pleural effusion, focal consolidation, or pneumothorax. Pulmonary vascularity: Unremarkable. Heart/mediastinum: Cardiomediastinal silhouette is unremarkable. Musculoskeletal: No acute osseous pathology. IMPRESSION: Multifocal airspace opacities concerning for pneumonia. [facility], , 05/02/2024 10:04 PM
[2024-05-02] MEDS: ACETAMINOPHEN TAB 500 MG TAB PO STA (22:14)
[2024-05-02 22:17] LABS: ALT 12 U/L (4-34); AST 24 U/L (14-36); African American GFR (CKD) 81 (>60 ml/min/1.73 sqM); Albumin 3.1 g/dL (3.5-5.0); Alkaline Phosphatase 54 U/L (38-126); Anion Gap 4 mmol/L; Blood Urea Nitrogen 17 mg/dL (7-17); Calcium 8.6 mg/dL (8.4-10.2); Carbon Dioxide 32 mmol/L (22-30); Chloride 101 mmol/L (98-107); Glucose 96 mg/dL (74-99); Magnesium 1.7 mg/dL (1.6-2.3); Non-African American GFR(CKD) 70 (>60 ml/min/1.73 sqM); Potassium 3.5 mmol/L (3.5-5.1); Sodium 137 mmol/L (137-145); Total Bilirubin 0.5 mg/dL (0.2-1.3); Total Protein 5.7 g/dL (6.3-8.2)
[2024-05-03] MEDS: PIPERACILLIN-TAZOBACTAM 3.375 GM in SODIUM CHLORIDE 0.9% 100 ML IVPB SCH (00:40)
[2024-05-03] MEDS ORDERED: NALOXONE 0.4 MG/ML 1 ML VIAL IV PRN (01:37)
[2024-05-03] MEDS ORDERED: ONDANSETRON 4 MG/2 ML VIAL IVP PRN (01:37)
[2024-05-03] MEDS: SODIUM CHLORIDE 0.9% 1,000 ML IV SCH (02:00)
[2024-05-03 02:21] LABS: Appearance,Urine Clear (Clear); Bilirubin,Urine Negative (Negative); Blood,Urine Negative (Negative); Color,Urine Yellow; Glucose,Urine (UA) Negative (Negative); Ketones,Urine Negative (Negative); Leukocyte Esterase,Urine Negative (Negative); Nitrite,Urine Negative (Negative); Protein,Urine Negative (Negative); Specific Gravity,Urine 1.019 (1.001-1.035); Urobilinogen,Urine <2.0 mg/dL (<2.0)
--- NOTE | 2024-05-03 03:11 | P.HPIM ---
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 Presents to the emergency department with a fever and a persistent cough. She was at home, where she lives at an assisted living facility, and states she was feeling okay when all of a sudden she started to feel hot. She notified the staff at the assisted living facility that she was not feeling well and was feeling feverish, at that time her temperature was noted to be 101 F. EMS was called and the patient was brought to the emergency department. Patient states that she has had a persistent cough for a while now, and that she was hospitalized recently and put on antibiotics, however she does not recall with the antibiotics were. She follows with Dr. Gilbert as an outpatient and notes that while she generally wears 2 L nasal cannula at home, she states that over the past month or so she has noted increased oxygen need and increase it to 3 L. Her next point with Dr. Gilbert was scheduled to be (05/03). She denies any abdominal pain, changes in bowel or urinary habits. Patient resting comfortably in bed currently with no complaints, however notes that she does have a trip planned for the beginning of May and states that she would like to be feeling better by then. Labratory review: -WBCs 18.8, hemoglobin 11.4, hematocrit 35.2, platelet 555; sodium 137, potassium 3.5, BUN 17, creatinine 0.77, total bilirubin 0.5, AST 24, ALT 22, alkaline phosphatase 54 -Urinalysis noncontributory -Respiratory viral panel all negative Imaging: -Chest x-ray done in the ER of multifocal airspace opacities concerning for pneumonia -EKG done in the ER showed heart rate of 95, sinus rhythm with frequent PVCs; QTc 416 Vitals: -Blood pressure 137/74, heart rate 85, respiratory rate 18, SpO2 97% on 3 L nasal cannula Patient admitted to internal medicine service REVIEW OF SYSTEMS: CONSTITUTIONAL: No fever, no malaise, no fatigue. HEENT: No recent visual problems or hearing problems. Denied any sore throat. CARDIOVASCULAR: No chest pain, orthopnea, PND, no palpitations, no syncope. PULMONARY: No shortness of breath. Cough productive with yellowish sputum. No hemoptysis GASTROINTESTINAL: No diarrhea, no nausea, no vomiting, no abdominal pain. NEUROLOGICAL: No headaches, no weakness, no numbness. HEMATOLOGICAL: Denies any bleeding or petechiae. GENITOURINARY: Denies any burning micturition, frequency, or urgency. MUSCULOSKELETAL/RHEUMATOLOGICAL: Denies any joint pain, swelling, or any muscle pain. ENDOCRINE: Denies any polyuria or polydipsia. The rest of the 14-point review of systems is negative. PHYSICAL EXAMINATION: GENERAL: The patient is alert and oriented x3, not in any acute distress. Well developed, well nourished. HEENT: Pupils are round and equally reacting to light. EOMI. No scleral icterus. No conjunctival pallor. Normocephalic, atraumatic. No pharyngeal erythema. No thyromegaly. CARDIOVASCULAR: S1 and S2 present. No murmurs, rubs, or gallops. PULMONARY: Chest is clear to auscultation, no wheezing or crackles. ABDOMEN: Soft, nontender, nondistended, normoactive bowel sounds. No palpable organomegaly. MUSCULOSKELETAL: No joint swelling or deformity. EXTREMITIES: No cyanosis, clubbing, or pedal edema. NEUROLOGICAL: Gross neurological examination did not reveal any focal deficits. SKIN: No rashes. Assessment and plan 88-year-old female PMH of COPD and asthma, presents emergency department with fever and prolonged chronic cough. Discussed with ED, patient admitted to the internal medicine service for further evaluation. #Sepsis, likely secondary to multifocal pneumonia -WBCs 18.8, Tmax 101 F prior to taking Tylenol -C/w Zosyn 3.375 g every 8 hours -Continue with 130 cc/h normal saline -Blood culture currently pending -Lactic acid currently pending -Procalcitonin currently pending -Pulmonology consulted #COPD on 2 L nasal cannula at home as needed, w/ chronic hypoxic resp failure -Currently takes Trelegy Ellipta 14822.525 at home daily; continue once verified by pharmacy -Patient takes prednisone 10 mg daily as well as an antibiotic daily (she is unsure of the name) at home, as prescribed by Dr. Gilbert -Patient follows with Dr. Gilbert, her next appointment was scheduled to be today (05/03) #Hypertension -Controlled at home with hydrochlorothiazide 25 mg daily, losartan potassium 100 mg daily, Toprol-XL 50 mg daily; continue once verified by pharmacy CODE STATUS: Full code GI prohylaxis: Protonix 40 mg daily DVT prophylaxis: Lovenox 40 mg SQ daily Dictation was produced using [employer] dictation software. please excuse any grammatical, word or spelling errors. 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 Last Myocardial Infarction Date:: 40 years ago History of Any Multi-Drug Resistant Organisms: None Reported Past Surgical History: Cholecystectomy, Hysterectomy, Orthopedic Surgery Additional Past Surgical History / Comment(s): KNEE arthroscopy, COLONOSCOPY- LARGE POLYP REMOVED, EGD, cataracts, Right TKA (10/21/21) Past Anesthesia/Blood Transfusion Reactions: No Reported Reaction Additional Past Anesthesia/Blood Transfusion Reaction / Comment(s): No hx blood transfusion. Past Psychological History: No Psychological Hx Reported Smoking Status: Former smoker Past Alcohol Use History: None Reported Past Drug Use History: None Reported - Past Family History Sister(s) Family Medical History: Cancer Additional Family Medical History / Comment(s): #1 sister colon cancer, # 2 sister lung cancer. Father Family Medical History: Cancer Additional Family Medical History / Comment(s): Prostate cancer. Mother Family Medical History: Asthma Additional Family Medical History / Comment(s): Heart problems. Son(s) Additional Family Medical History / Comment(s): SCLERODERMA Medications and Allergies Home Medications Medication Instructions Recorded Confirmed Type Losartan Potassium 100 mg PO DAILY 10/30/14 11/14/23 History hydroCHLOROthiazide [Hydrodiuril] 25 mg PO DAILY #90 tab 09/30/22 11/14/23 Rx predniSONE 10 mg PO DAILY #90 tab 09/30/22 11/14/23 Rx Metoprolol Succinate (ER) [Toprol 50 mg PO DAILY 04/25/23 11/14/23 History XL] Zolpidem [Ambien] 2.5 mg PO HS PRN 04/25/23 11/14/23 History Fluticasone/Umeclidin/Vilanter 1 puff INHALATION RT-DAILY 11/01/23 11/14/23 History [Trelegy Ellipta 200-62.5-25] Ciprofloxacin HCl [Cipro] 750 mg PO BID 11/14/23 11/14/23 History Allergies Allergy/AdvReac Type Severity Reaction Status Date / Time hydrocodone bitartrate AdvReac states Verified 05/02/24 21:09 [From Vicodin] "doesn't make me feel good" Physical Exam Vitals: Vital Signs Temp Pulse Resp BP Pulse Ox 05/03/24 02:00 71 18 104/79 100 05/03/24 00:06 78 18 113/60 97 05/02/24 23:00 98.6 F 81 18 118/58 97 05/02/24 22:00 85 18 137/74 97 05/02/24 21:07 18 05/02/24 20:59 101.5 F H 101 H 18 134/64 97 Intake and Output 05/02/24 05/02/24 05/03/24 14:59 22:59 06:59 Other: Weight 68.039 kg Results CBC & Chem 7: 05/02/24 21:33 05/02/24 21:33 Labs: Abnormal Lab Results - Last 24 Hours (Table) 05/02/24 05/02/24 Range/Units 21:33 21:33 WBC 18.8 H (3.8-10.6) k/uL RBC 3.77 L (3.80-5.40) m/uL Plt Count 555 H (150-450) k/uL Neutrophils # 15.8 H (1.3-7.7) k/uL Carbon Dioxide 32 H (22-30) mmol/L Total Protein 5.7 L (6.3-8.2) g/dL Albumin 3.1 L (3.5-5.0) g/dL
[2024-05-03 06:27] LABS: Basophils % (A) 0 %; Eosinophils # (A) 0.4 k/uL (0-0.7); Eosinophils % (A) 3 %; HCT 35.3 % (34.0-46.0); HGB 11.5 gm/dL (11.4-16.0); Lymphocytes # (A) 1.6 k/uL (1.0-4.8); Lymphocytes % (A) 11 %; MCH 29.8 pg (25.0-35.0); MCHC 32.6 g/dL (31.0-37.0); MCV 91.7 fL (80.0-100.0); Mean Platelet Volume 8.7; Monocytes # (A) 0.7 k/uL (0-1.0); Monocytes % (A) 4 %; Neutrophils # (A) 12.1 k/uL (1.3-7.7); Neutrophils % (A) 81 %; Platelet Count 504 k/uL (150-450); RBC 3.85 m/uL (3.80-5.40); RDW 12.6 % (11.5-15.5)
[2024-05-03] MEDS ORDERED: IPRATROPIUM-ALBUTEROL 3 ML NEB INHALATION PRN (08:47)
[2024-05-03] MEDS: PANTOPRAZOLE 40 MG TABLET PO SCH (09:00)
[2024-05-03] MEDS: ENOXAPARIN 40 MG/0.4 ML SYRINGE SQ SCH (09:07)
--- NOTE | 2024-05-03 13:48 | P.CNPUL ---
History of Present Illness Consult date: 05/03/24 Requesting physician: Elvis Salguero Reason for consult: dyspnea, cough, COPD Chief complaint: Shortness of breath, cough, congestion History of present illness: This is a very pleasant 88-year-old female patient with a known history of oxygen dependent and steroid-dependent chronic obstructive pulmonary disease, hypertension, hyperlipidemia, former smoker, Schatzki ring status post balloon dilatation. She presented here to the emergency department this evening with complaints of increasing shortness of breath, cough congestion and chills. Chest x-ray showed multifocal airspace opacities. White count 15.0. Hemoglobin 11.5. Platelets 504. Sodium 137. Potassium 3.5. Bicarb 32. BUN 5017. Creatinine 0.77. Glucose 96. Urinalysis clean. Viral screen negative. She is seen today in consultation in the emergency department. Alert in no acute distress. She does have a loose nonproductive cough. She is maintaining good O2 saturations in the 90s on 2 L/min per nasal cannula. She is afebrile. Hemodynamically stable. Review of Systems REVIEW OF SYSTEMS: CONSTITUTIONAL: Denies any recent significant weight loss or weight gain. EYES: Denies change in vision. EARS, NOSE, MOUTH, THROAT: Denies headaches, denies sore throat. CARDIOVASCULAR: Denies chest pain, palpitations or syncopal episodes. RESPIRATORY: Positive for shortness of breath, cough, congestion or hemoptysis. GASTROINTESTINAL: Denies change in appetite, denies abdominal pain GENITOURINARY: Denies hematuria, denies infections. MUSKULOSKELETAL: Denies pain, denies swelling. INTEGUMENTARY: Denies rash, denies eczema. NEUROLOGICAL: Denies recent memory loss, no recent seizure activity. PSYCHIATRIC: Denies anxiety, denies depression. HEMATOLOGIC/LYMPHATIC: Denies anemia, denies enlarged lymph nodes. 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 Last Myocardial Infarction Date:: 40 years ago History of Any Multi-Drug Resistant Organisms: None Reported Past Surgical History: Cholecystectomy, Hysterectomy, Orthopedic Surgery Additional Past Surgical History / Comment(s): KNEE arthroscopy, COLONOSCOPY-LARGE POLYP REMOVED, EGD, cataracts, Right TKA (10/21/21) Past Anesthesia/Blood Transfusion Reactions: No Reported Reaction Additional Past Anesthesia/Blood Transfusion Reaction / Comment(s): No hx blood transfusion. Past Psychological History: No Psychological Hx Reported Smoking Status: Former smoker Past Alcohol Use History: None Reported Past Drug Use History: None Reported - Past Family History Sister(s) Family Medical History: Cancer Additional Family Medical History / Comment(s): #1 sister colon cancer, # 2 sister lung cancer. Father Family Medical History: Cancer Additional Family Medical History / Comment(s): Prostate cancer. Mother Family Medical History: Asthma Additional Family Medical History / Comment(s): Heart problems. Son(s) Additional Family Medical History / Comment(s): SCLERODERMA Medications and Allergies Home Medications Medication Instructions Recorded Confirmed Type Losartan Potassium 100 mg PO DAILY 10/30/14 05/03/24 History hydroCHLOROthiazide [Hydrodiuril] 25 mg PO DAILY #90 tab 09/30/22 05/03/24 Rx Metoprolol Succinate (ER) [Toprol 50 mg PO DAILY 04/25/23 05/03/24 History XL] Albuterol Nebulized [Ventolin 2.5 mg INHALATION RT-QID 05/03/24 05/03/24 History Nebulized] Albuterol Sulfate [Albuterol 2 puff INHALATION RT-Q4H PRN 05/03/24 05/03/24 History Sulfate Hfa] Ipratropium Nebulized [Atrovent 0.5 mg INHALATION RT-QID 05/03/24 05/03/24 History Nebulized 0.2 MG/ML] predniSONE 5 mg PO DAILY 05/03/24 05/03/24 History Allergies Allergy/AdvReac Type Severity Reaction Status Date / Time hydrocodone bitartrate AdvReac states Verified 05/03/24 07:14 [From Vicodin] "doesn't make me feel good" Physical Exam Vitals: Vital Signs Temp Pulse Resp BP Pulse Ox 05/03/24 11:00 88 20 128/55 96 05/03/24 09:08 86 20 143/53 96 05/03/24 06:05 98.6 F 76 18 141/76 98 05/03/24 04:00 74 18 134/66 97 05/03/24 02:00 71 18 104/79 100 05/03/24 00:06 78 18 113/60 97 05/02/24 23:00 98.6 F 81 18 118/58 97 05/02/24 22:00 85 18 137/74 97 05/02/24 21:07 18 05/02/24 20:59 101.5 F H 101 H 18 134/64 97 Intake and Output 05/02/24 05/03/24 05/03/24 22:59 06:59 14:59 Other: Weight 68.039 kg GENERAL EXAM: Alert, pleasant 88-year-old female, on 3 L nasal cannula, fairly comfortable in no apparent distress. HEAD: Normocephalic. EYES: Normal reaction of pupils, equal size. NOSE: Clear with pink turbinates. THROAT: No erythema or exudates. NECK: No masses, no JVD. CHEST: No chest wall deformity. LUNGS: Equal air entry with bilateral scattered rhonchi. CVS: S1 and S2 normal with no audible murmur, regular rhythm. ABDOMEN: No hepatosplenomegaly, normal bowel sounds, no guarding or rigidity. SPINE: No scoliosis or deformity SKIN: No rashes CENTRAL NERVOUS SYSTEM: No focal deficits, tone is normal in all 4 extremities. EXTREMITIES: There is no peripheral edema. No clubbing, no cyanosis. Radha pheral pulses are intact. Results - Laboratory Findings CBC and BMP: 05/03/24 06:19 05/02/24 21:33 Abnormal lab findings: Abnormal Labs 05/02/24 05/02/24 05/03/24 21:33 21:33 06:19 WBC 18.8 H 15.0 H RBC 3.77 L Plt Count 555 H 504 H Neutrophils # 15.8 H 12.1 H Carbon Dioxide 32 H Total Protein 5.7 L Albumin 3.1 L - Diagnostic Findings Chest x-ray: image reviewed Assessment and Plan Assessment: Acute on chronic hypoxemic respiratory failure secondary to an acute exacerbatio n of chronic obstructive pulmonary disease. Viral screen negative. Procalcitonin negative Severe oxygen dependent, steroid-dependent chronic obstructive pulmonary disease Former smoker Hypertension Hyperlipidemia Schatzki's ring status post balloon dilatation Plan: The patient was seen and evaluated Chest x-ray, labs and medications reviewed Titrate down the FiO2 as tolerated Initiate DuoNeb inhalations, Symbicort Initiate Solu-Medrol Procalcitonin negative No need for antibiotics We will continue to follow and make further recommendations based on her clinical status I have personally seen and examined the patient, performed the documentation and the assessment and plan as written. Number of minutes spent on the visit: 20 Dictation was produced using [employer] dictation software. Please excuse any grammatical, word or spelling errors.
[2024-05-03] MEDS: IPRATROPIUM-ALBUTEROL 3 ML NEB INHALATION SCH (20:20)
[2024-05-03] MEDS: SYMBICORT 160-4.5 MCG INHALER INHALATION SCH (21:12)
[2024-05-03] MEDS: ACETAMINOPHEN TAB 325 MG TAB PO PRN (22:57)
[2024-05-04 08:39] VITALS: RESP 18
[2024-05-04] MEDS: hydroCHLOROthiazide 25 MG TAB PO SCH (10:59)
[2024-05-04] MEDS: polyethylene glycoL 3350 17 GM POWD.PACK PO SCH (10:59)
[2024-05-04] MEDS: METOPROLOL SUCCINATE (ER) 50 MG TAB.ER.24H PO SCH (11:00)
[2024-05-04] MEDS: ARTIFICIAL TEARS-HYPROMELLOSE DROPS 15 ML BTL BOTH EYES PRN (11:01)
[2024-05-04] MEDS: LOSARTAN 50 MG TAB PO SCH (11:01)
[2024-05-04 11:39] VITALS: BMI 25.7
[2024-05-04] MEDS: methylPREDNISolone SOD SUCCI 40 MG/ML 1 ML VIAL IV SCH (12:29)
--- NOTE | 2024-05-04 14:04 | P.PN ---
Subjective Progress Note Date: 05/04/24 Principal diagnosis: Shortness of breath. 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 She presented here to the emergency department this evening with complaints of increasing shortness of breath, cough congestion and chills. Chest x-ray showed multifocal airspace opacities. White count 15.0. Hemoglobin 11.5. Platelets 504. Sodium 137. Potassium 3.5. Bicarb 32. BUN 5017. Creatinine 0.77. Glucose 96. Urinalysis clean. Viral screen negative. She is seen today in consultation in the emergency department. Alert in no acute distress. She does have a loose nonproductive cough. She is maintaining good O2 saturations in the 90s on 2 L/min per nasal cannula. She is afebrile. Hemodynamically stable. Progress note dated May 04, 2024. 88-year-old black female, well-known to our service. She was seen in consultation yesterday. She was seen for a COPD exacerbation. She is currently on 2 L. No IV fluids. Her procalcitonin level was normal at 0.08. She is resting comfortably in bed. She is awake and alert. She wishes to be discharged tomorrow if possible. No new labs today. Labs from yesterday have been reviewed. Objective - Vital Signs Vital signs: Vital Signs Temp 97.7 F 05/04/24 06:58 Pulse 101 H 05/04/24 11:46 Resp 18 05/04/24 11:34 BP 147/78 05/04/24 06:58 Pulse Ox 91 L 05/04/24 06:58 FiO2 Intake & Output 05/03/24 05/04/24 05/04/24 18:59 06:59 18:59 Weight 68.039 kg 68.039 kg - Exam No acute distress, oriented 3. No respiratory distress. Currently on 2 L. No audible wheezing or use of accessory muscles. HEENT examination is grossly unremarkable. Mucous membranes are moist. No oral lesions. Neck supple. Full range of motion. No adenopathy thyromegaly or neck vein distention. Cardiovascular examination reveals regular rhythm rate. S1-S2 normal. No S3 or S4. No discernible murmur noted. Lungs reveal mild expiratory wheezes and rhonchi. Breath sounds equal. No crackles. Abdomen soft bowel sounds are heard. No masses or tenderness. Extremities are intact. No cyanosis clubbing or edema. Skin is without rash or lesion. Neurologic examination is brief but nonfocal. - Labs CBC & Chem 7: 05/03/24 06:19 05/02/24 21:33 Labs: Microbiology - Last 24 Hours (Table) 05/02/24 22:05 Blood Culture - Preliminary Blood Assessment and Plan Assessment: Acute on chronic hypoxemic respiratory failure secondary to an acute exacerbation of chronic obstructive pulmonary disease. Severe oxygen dependent, steroid-dependent chronic obstructive pulmonary disease. Former smoker. Hypertension. Hyperlipidemia. Schatzki's ring status post balloon dilatation. Plan: Plan dated May 04, 2024. The patient is currently on 2 L. She is resting comfortably in bed. She is not having any significant respiratory difficulty or distress. She is not receiving any IV fluids. Procalcitonin level is normal. Antibiotics have been discontinued. We will continue to follow the patient, make recommendations along the way. Prognosis is guarded. She will follow-up with my partner after discharge. Blood cultures are negative. Recent sputum sample, was also negative. Time with Patient: Less than 30
--- NOTE | 2024-05-04 15:41 | P.PN ---
Subjective Progress Note Date: 05/04/24 Hospital Course: 88-year-old female patient with a known history of oxygen dependent and steroid- dependent chronic obstructive pulmonary disease, hypertension, hyperlipidemia, former smoker, Schatzki ring status post balloon dilatation. She presented with shortness of breath. Chest x-ray concerning for multifocal airspace opacity. WBC elevated at 18.8, platelet 555, procalcitonin 0.08, respiratory viral panel negative. Patient was febrile at 101.5 initially, pulse 101, requiring 3 L of oxygen saturating at 97%. Patient was initially started on IV antibiotics. Also started on bronchodilators and IV steroids. Pulmonology also consulted. Now antibiotics discontinued. Subjective: Patient seen and examined at bedside. No acute events overnight. Claims that her shortness of breath is improved. Pertinent positives and negatives as discussed above, a complete review of systems was performed and all other systems are negative. Vitals Signs Reviewed. General: Nontoxic, no distress, appears at stated age Derm: Warm, dry Head: Atraumatic, normocephalic, symmetric Eyes: EOMI, no lid lag, anicteric sclera Mouth: No lip lesion, mucus membranes moist Cardiovascular: S1S2 reg, no murmur Lungs: Bibasilar rales, no accessory muscle use, supplemental oxygen Abdominal: Soft, nontender to palpation, no guarding, no appreciable organomegaly Ext: No gross muscle atrophy, no edema, no contractures Neuro: CN II-XI grossly intact, no focal neuro deficits Psych: Alert, oriented, appropriate affect Data Reviewed Today: Pertinent Labs: WBC 15, platelet 504, lactate 0.9 Imaging: No new imaging Assessment and Plan: Active: Acute COPD exacerbation Acute on chronic hypoxic respiratory failure Former smoker -Continue Symbicort twice daily, DuoNebs every 2 hours as needed, 4 times daily scheduled, Solu-Medrol 40 IV every 6 hours -Pulmonology note reviewed, continue current therapy, outpatient follow-up -Patient now at baseline O2 saturations -Likely discharge tomorrow with oral steroids Suspected pneumonia, possibly viral Leukocytosis, downtrending SIRS -Procalcitonin negative -Patient has been afebrile since admission -Monitor off of antibiotics -Cultures negative so far Chronic: Schatzki's ring status post balloon dilatation Hypertension GERD DVT ppx: Lovenox Code status: Full code Anticipated discharge place: Pending clinical course Anticipated discharge time: Pending clinical course Objective - Vital Signs Vital signs: Vital Signs Temp 98.4 F 05/04/24 13:36 Pulse 106 H 05/04/24 15:40 Resp 18 05/04/24 13:36 BP 123/67 05/04/24 13:36 Pulse Ox 90 L 05/04/24 13:36 FiO2 Intake & Output 05/03/24 05/04/24 05/04/24 18:59 06:59 18:59 Weight 68.039 kg 68.039 kg - Labs CBC & Chem 7: 05/03/24 06:19 05/02/24 21:33 Labs: Microbiology - Last 24 Hours (Table) 05/02/24 22:05 Blood Culture - Preliminary Blood
[2024-05-05 07:40] VITALS: BP 156/79; TEMP 97.5
[2024-05-05 08:41] LABS: Basophils # (A) 0.02 X 10*3/uL (0.00-0.10); Basophils % (A) 0.1 %; Eosinophils # (A) 0 X 10*3/uL (0.04-0.35); Eosinophils % (A) 0 %; HCT 36.5 % (37.2-46.3); HGB 11.9 g/dL (12.0-15.0); Lymphocytes # (A) 1.02 X 10*3/uL (0.90-5.00); Lymphocytes % (A) 7.4 %; MCH 30.4 pg (27.0-32.0); MCHC 32.6 g/dL (32.0-37.0); MCV 93.1 FL (80.0-97.0); Mean Platelet Volume 10.3 FL (9.5-12.2); Monocytes # (A) 0.23 X 10*3/uL (0.20-1.00); Monocytes % (A) 1.7 %; NRBC Per 100 WBC 0 X 10*3/uL (0.00-0.01); Neutrophils # (A) 12.37 X 10*3/uL (1.80-7.70); Neutrophils % (A) 89.9 %; Platelet Count 644 X 10*3/uL (140-440); RBC 3.92 X 10*6/uL (4.10-5.20); RDW 12.2 % (11.5-14.5); WBC 13.76 X 10*3/uL (4.50-10.00)
[2024-05-05 08:54] LABS: BUN/Creat Ratio 18.25 Ratio (12.00-20.00); Blood Urea Nitrogen 14.6 mg/dL (9.0-27.0); Calcium 9.4 mg/dL (8.7-10.3); Carbon Dioxide 28.4 mmol/L (21.6-31.8); Chloride 100 mmol/L (96-109); Glucose 151 mg/dL (70-110); Potassium 4.1 mmol/L (3.5-5.5); Sodium 140 mmol/L (135-145)
[2024-05-05 12:23] VITALS: PULSE 113
--- NOTE | 2024-05-05 13:13 | P.PN ---
Subjective Progress Note Date: 05/05/24 Principal diagnosis: Shortness of breath. 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 She presented here to the emergency department this evening with complaints of increasing shortness of breath, cough congestion and chills. Chest x-ray showed multifocal airspace opacities. White count 15.0. Hemoglobin 11.5. Platelets 504. Sodium 137. Potassium 3.5. Bicarb 32. BUN 5017. Creatinine 0.77. Glucose 96. Urinalysis clean. Viral screen negative. She is seen today in consultation in the emergency department. Alert in no acute distress. She does have a loose nonproductive cough. She is maintaining good O2 saturations in the 90s on 2 L/min per nasal cannula. She is afebrile. Hemodynamically stable. Progress note dated May 04, 2024. 88-year-old black female, well-known to our service. She was seen in consultation yesterday. She was seen for a COPD exacerbation. She is currently on 2 L. No IV fluids. Her procalcitonin level was normal at 0.08. She is resting comfortably in bed. She is awake and alert. She wishes to be discharged tomorrow if possible. No new labs today. Labs from yesterday have been reviewed. Progress note dated May 05, 2024. 88-year-old black female seen today in room 463. She continues on oxygen at 2 L. No IV fluids. The patient is hoping to be discharged today. She is feeling better. Her procalcitonin level was normal at 0.08. Today's labs include a white count of 13.76, hemoglobin 11.9, hematocrit 36.5, and platelet count of 644,000. Electrolyte profile is completely normal. Glucose is 151. Objective - Vital Signs Vital signs: Vital Signs Temp 97.5 F L 05/05/24 07:38 Pulse 113 H 05/05/24 12:23 Resp 18 05/05/24 07:38 BP 156/79 05/05/24 07:38 Pulse Ox 98 05/05/24 07:38 FiO2 Intake & Output 05/04/24 05/05/24 05/05/24 18:59 06:59 18:59 Weight 68.039 kg Other: # Voids 4 - Exam No acute distress, oriented 3. No respiratory distress. Currently on 2 L. No audible wheezing or use of accessory muscles. HEENT examination is grossly unremarkable. Mucous membranes are moist. No oral lesions. Neck supple. Full range of motion. No adenopathy thyromegaly or neck vein distention. Cardiovascular examination reveals regular rhythm rate. S1-S2 normal. No S3 or S4. No discernible murmur noted. Lungs reveal mild expiratory wheezes and rhonchi. Breath sounds equal. No crackles. Abdomen soft bowel sounds are heard. No masses or tenderness. Extremities are intact. No cyanosis clubbing or edema. Skin is without rash or lesion. Neurologic examination is brief but nonfocal. - Labs CBC & Chem 7: 05/05/24 05:37 05/05/24 05:37 Labs: Abnormal Lab Results - Last 24 Hours (Table) 05/05/24 05/05/24 Range/Units 05:37 05:37 WBC 13.76 H (4.50-10.00) X 10*3/uL RBC 3.92 L (4.10-5.20) X 10*6/uL Hgb 11.9 L (12.0-15.0) g/dL Hct 36.5 L (37.2-46.3) % Plt Count 644 H (140-440) X 10*3/uL Immature Gran # 0.12 H (0.00-0.04) X 10*3/uL Neutrophils # 12.37 H (1.80-7.70) X 10*3/uL Eosinophils # 0 L (0.04-0.35) X 10*3/uL Glucose 151 H (70-110) mg/dL Microbiology - Last 24 Hours (Table) 05/02/24 22:05 Blood Culture - Preliminary Blood Assessment and Plan Assessment: Acute on chronic hypoxemic respiratory failure secondary to an acute exacerbation of chronic obstructive pulmonary disease. Severe oxygen dependent, steroid-dependent chronic obstructive pulmonary disease. Former smoker. Hypertension. Hyperlipidemia. Schatzki's ring status post balloon dilatation. Plan: Plan dated May 04, 2024. The patient is currently on 2 L. She is resting comfortably in bed. She is not having any significant respiratory difficulty or distress. She is not receiving any IV fluids. Procalcitonin level is normal. Antibiotics have been discontinued. We will continue to follow the patient, make recommendations along the way. Prognosis is guarded. She will follow-up with my partner after discharge. Blood cultures are negative. Recent sputum sample, was also negati ve. Plan dated May 05, 2024. The patient appears relatively stable. She continues on O2 at 2 L. No IV fluids. Pulmonary examination reveals some scattered rhonchi. Procalcitonin level is normal. Labs, x-rays, and medications are reviewed. The patient is hoping to be discharged sometime today. We will continue to follow should she not be discharged. No additional recommendations are made at this time. The patient will follow-up with my partner in the office. Time with Patient: Less than 30
--- NOTE | 2024-05-05 14:43 | P.DS ---
Providers Date of admission: 05/03/24 01:38 Expected date of discharge: 05/05/24 Attending physician: Ramesh Ayala MD Consults: 05/03/24 01:37 Consult Physician Routine Consulting Provider: Da Gilbert Consult Reason/Comments: pna Do you want consulting provider notified?: Yes Primary care physician: Da Gilbert Hospital Course: Discharge Diagnosis: Acute COPD exacerbation Acute on chronic hypoxic respiratory failure Former smoker Suspected pneumonia, possibly viral Leukocytosis, downtrending SIRS Schatzki's ring status post balloon dilatation Hypertension GERD Hospital Course: 88-year-old female patient with a known history of oxygen dependent and steroid- dependent chronic obstructive pulmonary disease, hypertension, hyperlipidemia, former smoker, Schatzki ring status post balloon dilatation. She presented with shortness of breath. Chest x-ray concerning for multifocal airspace opacity. WBC elevated at 18.8, platelet 555, procalcitonin 0.08, respiratory viral panel negative. Patient was febrile at 101.5 initially, pulse 101, requiring 3 L of oxygen saturating at 97%. Patient was initially started on IV antibiotics. Also started on bronchodilators and IV steroids. Pulmonology also consulted. Now antibiotics discontinued. IV steroids converted to oral. Patient being discharged home with previously home O2 at 2 L, follow-up with pulmonology and PCP. Patient seen and examined at bedside. Vital signs reviewed and stable. General: Nontoxic, no distress, appears at stated age Derm: Warm, dry Head: Atraumatic, normocephalic, symmetric Eyes: EOMI, no lid lag, anicteric sclera Mouth: No lip lesion, mucus membranes moist Cardiovascular: S1S2 reg, no murmur Lungs: CTA bilateral, no rhonchi, no rales, no accessory muscle use, supplemental oxygen Abdominal: Soft, nontender to palpation, no guarding, no appreciable organomegaly Ext: No gross muscle atrophy, no edema, no contractures Neuro: CN II-XI grossly intact, no focal neuro deficits Psych: Alert, oriented, appropriate affect A total of 38 minutes of time were spent preparing this complex discharge summary. Patient was discharged on 04/25/2024 at 1256. Patient Condition at Discharge: Stable Plan - Discharge Summary Discharge Rx Participant: No New Discharge Prescriptions: New predniSONE [Deltasone] 40 mg PO DAILY #6 tab Pantoprazole [Protonix] 40 mg PO AC-BRKFST #90 tab Budesonide [Pulmicort] 0.5 mg INHALATION BID #60 ml Tiotropium 18 Mcg/Puff [Spiriva] 1 puff INHALATION DAILY #90 each Continue Losartan Potassium 100 mg PO DAILY Albuterol Sulfate [Albuterol Sulfate Hfa] 2 puff INHALATION RT-Q4H PRN PRN Reason: Shortness Of Breath Albuterol Nebulized [Ventolin Nebulized] 2.5 mg INHALATION RT-QID predniSONE 5 mg PO DAILY Ipratropium Nebulized [Atrovent Nebulized 0.2 MG/ML] 0.5 mg INHALATION RT-QID hydroCHLOROthiazide [Hydrodiuril] 25 mg PO DAILY #90 tab Metoprolol Succinate (ER) [Toprol XL] 50 mg PO DAILY Discharge Medication List Losartan Potassium 100 mg PO DAILY 10/30/14 [History] hydroCHLOROthiazide [Hydrodiuril] 25 mg PO DAILY #90 tab 09/30/22 [Rx] Metoprolol Succinate (ER) [Toprol XL] 50 mg PO DAILY 04/25/23 [History] Albuterol Nebulized [Ventolin Nebulized] 2.5 mg INHALATION RT-QID 05/03/24 [History] Albuterol Sulfate [Albuterol Sulfate Hfa] 2 puff INHALATION RT-Q4H PRN 05/03/24 [History] Ipratropium Nebulized [Atrovent Nebulized 0.2 MG/ML] 0.5 mg INHALATION RT-QID 05/03/24 [History] predniSONE 5 mg PO DAILY 05/03/24 [History] Budesonide [Pulmicort] 0.5 mg INHALATION BID #60 ml 05/05/24 [Rx] Pantoprazole [Protonix] 40 mg PO AC-BRKFST #90 tab 05/05/24 [Rx] Tiotropium 18 Mcg/Puff [Spiriva] 1 puff INHALATION DAILY #90 each 05/05/24 [Rx] predniSONE [Deltasone] 40 mg PO DAILY #6 tab 05/05/24 [Rx] Follow up Appointment(s)/Referral(s): Po Winchester MD [STAFF PHYSICIAN] - 1-2 Days Da Gilbert MD [Primary Care Provider] - 1-2 days Patient Instructions/Handouts: COPD (Chronic Obstructive Pulmonary Disease) (DC) Activity/Diet/Wound Care/Special Instructions: Please take the higher dose steroids for next 3 days, and then resume your home prednisone. Please see PCP and pulmonology. Discharge Disposition: HOME SELF-CARE
== END 2024-05-05 15:20 | disposition home or self-care (01) | DRG 193 ==
LOC: EC 20:57 → 4SSUR 05-03 01:38
PROVIDERS: ADMIT Internal Medicine; ATTEND Internal Medicine
DX: J18.9 Pneumonia, unspecified organism (principal); J96.21 Acute and chronic respiratory failure with hypoxia; J44.0 Chronic obstructive pulmonary disease with (acute) lower respiratory infection; R65.10 Systemic inflammatory response syndrome (SIRS) of non-infectious origin without acute organ dysfunction; J44.1 Chronic obstructive pulmonary disease with (acute) exacerbation; I10 Essential (primary) hypertension; K21.9 Gastro-esophageal reflux disease without esophagitis; Z99.81 Dependence on supplemental oxygen; Z87.891 Personal history of nicotine dependence; E78.5 Hyperlipidemia, unspecified; I25.2 Old myocardial infarction; Z79.52 Long term (current) use of systemic steroids; Z79.899 Other long term (current) drug therapy; Z96.651 Presence of right artificial knee joint
CPT/HCPCS: 36415; 71046; 80048; 80053; 81003; 83605; 83735; 84145; 85025; 87040; 87636; 93005; 94640; 96361; 96365; 96366; 96372; 99285

== ENCOUNTER 2024-08-24 10:42 | Day surgery (SDC) | payer MEDICARE, BC ==
[2024-08-23 13:01] VITALS: BMI 26.2
[~2024-08-24 10:42] MED LIST changes: -ONDANSETRON 4 MG/2 ML VIAL IVP PRN; -fentaNYL (PF) 50 MCG/ML 2 ML AMP IV PRN
[2024-08-24] MEDS: IV FLUID CONTINUATION 1,000 ML IV ONE ×2 (11:30→15:34)
[2024-08-24] MEDS: IPRATROPIUM 0.5 MG/2.5 ML NEBU INHALATION ONE (11:40)
[2024-08-24] MEDS ORDERED: LIDOCAINE 1% INJ 10MG/ML (20 ML MDV) ONE (11:49)
[2024-08-24] MEDS ORDERED: PROPOFOL 10 MG/ML 20 ML VIAL IV ONE (11:49)
[2024-08-24] MEDS: IPRATROPIUM-ALBUTEROL 3 ML NEB INHALATION STA (12:34)
[2024-08-24] MEDS: methylPREDNISolone SOD SUCCI 125 MG/2 ML VIAL IV STA (12:43)
[2024-08-24] MEDS ORDERED: NALOXONE 0.4 MG/ML 1 ML VIAL IV PRN (13:56)
[2024-08-24] MEDS ORDERED: ALBUTEROL NEBULIZED 2.5 MG/3 ML INHALATION PRN (13:56)
[2024-08-24] MEDS ORDERED: ACETAMINOPHEN TAB 325 MG TAB PO PRN (15:54)
[2024-08-24] MEDS: IPRATROPIUM 0.5 MG/2.5 ML NEBU INHALATION SCH (16:41)
[2024-08-24] MEDS: LACTATED RINGERS 1,000 ML IV SCH (16:55)
[2024-08-24] MEDS: PANTOPRAZOLE 40 MG TABLET PO SCH (16:55)
--- NOTE | 2024-08-24 17:01 | P.HPIM ---
History of Present Illness H&P Date: 08/24/24 Patient is a 58-year-old female with COPD (3 L nasal cannula home oxygen), asthma, hypertension, hyperlipidemia, osteoarthritis here for blood-tinged cough postop bronchoscopy. Patient is followed by Dr. Gilbert when she was recently experiencing a productive congested cough that required a visit to the ED while she was in [place]. She continues to report associated shortness of breath and bronchoscopy with BAL was planned today. However postop patient was noted to continue having a persisting cough now with blood-tinged sputum. On admission: Vitals: On admission, temperature 100.1 F, pulse rate 107, respiratory 20, blood pressure 130/66, 97% O2 saturation on 3 L nasal cannula Review of systems: Pertinent positives and negatives as discussed in HPI, a complete review of systems was performed and all other systems are negative. Physical examination: Vital signs reviewed General: non toxic, no distress, appears at stated age, on nasal cannula Derm: no unusual rashes/lesions, warm Head: atraumatic, normocephalic, symmetric Eyes: EOMI, anicteric sclera, pupils equal round reactive to light ENT: Nose and ears atraumatic Neck: No cervical lymphadenopathy, trachea midline, supple Mouth: no lip lesion, mucus membranes moist Cardiovascular: S1S2 reg, no murmur Lungs: CTA bilateral, no rhonchi, no rales, no accessory muscle use Abdominal: soft, nondistended, nontender to palpation, no guarding Ext: muscle strength 5 out of 5 in all 4 extremities grossly, no gross muscle atrophy, no contractures, positive dorsalis pedis pulse bilateral, +2 bilateral lower extremity edema Neuro: CN II-XI grossly intact, no gross focal neuro deficits Psych: Alert and oriented x 3, appropriate affect and mood Assessment/Plan: 88-year-old female with COPD on home oxygen, asthma admitted for COPD exacerbation. Discussion with pulmonology, patient had bronchoscopy today. Needs further workup and management of COPD exacerbation. #. Acute COPD exacerbation -Patient continues to have persistent productive blood-tinged cough after bronchoscopy -Continue home Pulmicort, Spiriva inhalers -Initiate DuoNebs as needed and 4 times daily -Given IV Solu-Medrol 125 mg once. Initiate Prednisone 40mg daily -Would benefit from zithromax 500mg daily for 3 days -Supplemental oxygen as needed -Chest xray ordered -CBC and BMP in the AM -procalcitonin ordered -Consult pulmonology #. Bilateral lower extremity edema -Patient reported that this edema is new to her -proBNP ordered -Bilateral lower extremity venous Doppler ultrasound ordered Chronic Conditions: #. Asthma #. Hypertension #. Hyperlipidemia #. Osteoarthritis -Continue home hydrochlorothiazide p.o., losartan p.o., metoprolol XL p.o. F: Oral intake E: None for now N: Regular diet A: And self ambulate DVT ppx: Lovenox 40 mg SQ daily GI ppx: Protonix 40 mg p.o. daily Dispo: The patient is admitted as observation with an anticipated less than 2 midnight stay for evaluation of COPD exacerbation CODE STATUS: Full Discussed with: Patient Anticipated discharge place: Home Kay De Leon MD PGY-1 Internal Medicine Dictation was produced using [employer] dictation software. please excuse any grammatical, word or spelling errors. I have seen and evaluated the patient today. Discussed with the resident and agree with the residents finding and plan as documented in the resident's note. Changes highlighted in blue font. 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 Last Myocardial Infarction Date:: 40 years ago History of Any Multi-Drug Resistant Organisms: None Reported Past Surgical History: Cholecystectomy, Hysterectomy, Orthopedic Surgery Additional Past Surgical History / Comment(s): KNEE arthroscopy, COLONOSCOPY- LARGE POLYP REMOVED, EGD, cataracts, Right TKA (10/21/21) Past Anesthesia/Blood Transfusion Reactions: No Reported Reaction Additional Past Anesthesia/Blood Transfusion Reaction / Comment(s): No hx blood transfusion. Smoking Status: Former smoker - Past Family History Sister(s) Family Medical History: Cancer Additional Family Medical History / Comment(s): #1 sister colon cancer, # 2 sister lung cancer. Father Family Medical History: Cancer Additional Family Medical History / Comment(s): Prostate cancer. Mother Family Medical History: Asthma Additional Family Medical History / Comment(s): Heart problems. Son(s) Additional Family Medical History / Comment(s): SCLERODERMA Medications and Allergies Home Medications Medication Instructions Recorded Confirmed Type Losartan Potassium 100 mg PO QAM 10/30/14 08/24/24 History hydroCHLOROthiazide [Hydrodiuril] 25 mg PO DAILY #90 tab 09/30/22 08/24/24 Rx Metoprolol Succinate (ER) [Toprol 50 mg PO QAM 04/25/23 08/24/24 History XL] Albuterol Nebulized [Ventolin 2.5 mg INHALATION Q4H PRN 05/03/24 08/24/24 History Nebulized] Albuterol Sulfate [Albuterol 2 puff INHALATION RT-Q4H PRN 05/03/24 08/24/24 History Sulfate Hfa] Ipratropium Nebulized [Atrovent 0.5 mg INHALATION Q4H 05/03/24 08/24/24 History Nebulized 0.2 MG/ML] predniSONE 10 mg PO QAM 05/03/24 08/24/24 History Budesonide [Pulmicort] 0.5 mg INHALATION BID #60 ml 05/05/24 08/24/24 Rx Tiotropium 18 Mcg/Puff [Spiriva] 1 puff INHALATION DAILY #90 each 05/05/24 08/24/24 Rx Allergies Allergy/AdvReac Type Severity Reaction Status Date / Time hydrocodone bitartrate AdvReac states Verified 08/24/24 11:19 [From Vicodin] "doesn't make me feel good,I feel high" Physical Exam Vitals: Vital Signs Temp Pulse Resp BP Pulse Ox 08/24/24 14:18 103 H 26 H 146/80 99 08/24/24 13:48 102 H 28 H 146/79 98 08/24/24 13:13 110 H 26 H 149/79 96 08/24/24 12:59 104 H 26 H 184/85 93 L 08/24/24 12:36 105 H 26 H 153/73 100 08/24/24 12:09 105 H 26 H 130/87 95 08/24/24 11:30 100.1 F H 107 H 20 130/66 97 Intake and Output 08/23/24 08/24/24 08/24/24 22:59 06:59 14:59 Intake Total 200 Balance 200 Intake: IV 200 Other: Weight 78.2 kg
--- NOTE | 2024-08-24 17:22 | US ---
EXAMINATION TYPE: US venous doppler duplex LE BI DATE OF EXAM: 08/24/2024 5:07 PM COMPARISON: Prior ultrasound 2021 right lower extremity. CLINICAL INDICATION: Female, 88 years old with history of bilateral lower ext edema; Patient denies a ny signs, symptoms, or relevant history , Pain TECHNIQUE: The lower extremity deep venous system is examined utilizing real time linear array sonog miriam with graded compression, color doppler sonography, and spectral doppler. SIDE PERFORMED: Bilateral FINDINGS: VESSELS IMAGED: Common Femoral Vein Deep Femoral Vein Greater Saphenous Vein * Femoral Vein Popliteal Vein Small Saphenous Vein * Proximal Calf Veins (* superficial vessels) Right Leg: Negative for DVT, Color Doppler imaging shows patency of the vessels. Spectral waveforms are within normal limits. Left Leg: Negative for DVT, Color Doppler imaging shows patency of the vessels. Spectral waveforms a re within normal limits. IMPRESSION: No ultrasound evidence for deep venous thrombosis. [facility], , 08/24/2024 5:19 PM
[2024-08-24 17:38] LABS: Basophils % (A) 0 %; Eosinophils # (A) 0.2 k/uL (0-0.7); Eosinophils % (A) 1 %; HCT 40.1 % (34.0-46.0); HGB 12.5 gm/dL (11.4-16.0); Lymphocytes # (A) 0.6 k/uL (1.0-4.8); Lymphocytes % (A) 3 %; MCH 29.3 pg (25.0-35.0); MCHC 31.1 g/dL (31.0-37.0); MCV 94.3 fL (80.0-100.0); Monocytes # (A) 0.2 k/uL (0-1.0); Monocytes % (A) 1 %; Neutrophils # (A) 16.9 k/uL (1.3-7.7); Neutrophils % (A) 94 %; Platelet Count 502 k/uL (150-450); RBC 4.26 m/uL (3.80-5.40); RDW 13.7 % (11.5-15.5)
[2024-08-24 17:48] LABS: ALT 17 U/L (4-34); AST 21 U/L (14-36); African American GFR (CKD) >90 (>60 ml/min/1.73 sqM); Albumin 3.6 g/dL (3.5-5.0); Albumin/Globulin Ratio 1.4; Alkaline Phosphatase 66 U/L (38-126); Anion Gap 6 mmol/L; Blood Urea Nitrogen 13 mg/dL (7-17); Calcium 9.3 mg/dL (8.4-10.2); Carbon Dioxide 37 mmol/L (22-30); Chloride 94 mmol/L (98-107); Globulin 2.5 g/dL; Glucose 191 mg/dL (74-99); Non-African American GFR(CKD) 81 (>60 ml/min/1.73 sqM); Potassium 3.8 mmol/L (3.5-5.1); Sodium 137 mmol/L (137-145); Total Bilirubin 0.5 mg/dL (0.2-1.3); Total Protein 6.1 g/dL (6.3-8.2)
[2024-08-24 17:57] LABS: NT-Pro-B-Type Natriuretic Pept 215 pg/mL
--- NOTE | 2024-08-24 18:01 | XR ---
EXAMINATION TYPE: XR chest 1V DATE OF EXAM: 08/24/2024 CLINICAL INDICATION: Female, 88 years old with history of persistent cough, TECHNIQUE: Single frontal view of the chest is obtained. COMPARISON: Chest x-ray May 02, 2024 FINDINGS: There is chronic parenchymal fibrotic change bilaterally redemonstrated without suspicious new focal air space opacity, pleural effusion, or pneumothorax seen. The cardiac silhouette size is stable and upper limits of normal with atherosclerotic Thoracic aorta. Dextroconvex scoliosis centered in the l ower thoracic spine is redemonstrated. IMPRESSION: Chronic parenchymal fibrotic changes without new suspicious acute pulmonary process. [facility], , 08/24/2024 5:58 PM
[2024-08-24] MEDS: AZITHROMYCIN 500 MG TAB PO SCH (18:14)
[2024-08-24] MEDS: BUDESONIDE 0.5 MG/2 ML NEBU INHALATION SCH (19:38)
[2024-08-24] MEDS: IPRATROPIUM-ALBUTEROL 3 ML NEB INHALATION SCH (19:38)
[2024-08-24] MEDS: guaiFENesin 600 MG TABLET.ER PO SCH (20:15)
[2024-08-24 21:13] LABS: Influenza A Not Detected (Not Detectd); Influenza B Not Detected (Not Detectd); RSV Not Detected (Not Detectd)
--- NOTE | 2024-08-24 23:08 | P.CNPUL ---
History of Present Illness Consult date: 08/24/24 Reason for consult: dyspnea, COPD History of present illness: All of this is a 88-year-old female patient with advanced oxygen and steroid-dependent COPD who came in to the hospital to undergo a bronchoscopy and therapeutic airway suctioning endobronchial lavage. The patient was having difficulties and shortness of breath outpatient basis and patient was having copious amount of respiratory secretions and she [facility] with [facility] airway suctioning and cultures. This was done this afternoon. Following the procedure, the patient felt that her breathing is improved and she was not ready to go home. She insisted on staying for 24 hours in the hospital for further optimization of her COPD. The patient is very well- known to me. She has had previous history of pseudomonal tracheobronchitis. No hemoptysis. No pleurisy. No chest pain. No fever or chills. The white cell count is at 18 with a hemoglobin of 12.7 and a platelet count of 502. Electrolytes are normal. Serum bicarb is at 37 and a BUN of 17 with a creatinine of 0.6. LFTs are normal. proBNP level is 215. The viral screen was negative. Procalcitonin level was 0.08. Chest x-ray showed bilateral COPD and emphysematous changes and chronic parenchymal fibrotic changes along with dextroconvex scoliosis of the lowest thoracic spine. No airspace disease. No lung masses. No other complaints otherwise for now. No altered mentation. Doppler of the lower extremities also revealed no evidence of any DVT. Review of Systems CONSTITUTIONAL: Denies any recent significant weight loss or weight gain. EYES: Denies change in vision. EARS, NOSE, MOUTH, THROAT: Denies headaches, denies sore throat. CARDIOVASCULAR: Denies chest pain, palpitations or syncopal episodes. RESPIRATORY: See HPI, chronic dyspnea cough and congestion and limitation exercise capacity. GASTROINTESTINAL: Denies change in appetite, abdominal pain, nausea and vomiting, or diarrhea GENITOURINARY: Denies hematuria, denies infections. MUSKULOSKELETAL: Denies pain, denies swelling. INTEGUMENTARY: Denies rash, denies eczema. NEUROLOGICAL: Denies recent memory loss, no recent seizure activity. PSYCHIATRIC: Denies anxiety, denies depression. 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 Last Myocardial Infarction Date:: 40 years ago History of Any Multi-Drug Resistant Organisms: None Reported Past Surgical History: Cholecystectomy, Hysterectomy, Orthopedic Surgery Additional Past Surgical History / Comment(s): KNEE arthroscopy, COLONOSCOPY- LARGE POLYP REMOVED, EGD, cataracts, Right TKA (10/21/21) Past Anesthesia/Blood Transfusion Reactions: No Reported Reaction Additional Past Anesthesia/Blood Transfusion Reaction / Comment(s): No hx blood transfusion. Smoking Status: Former smoker - Past Family History Sister(s) Family Medical History: Cancer Additional Family Medical History / Comment(s): #1 sister colon cancer, # 2 sister lung cancer. Father Family Medical History: Cancer Additional Family Medical History / Comment(s): Prostate cancer. Mother Family Medical History: Asthma Additional Family Medical History / Comment(s): Heart problems. Son(s) Additional Family Medical History / Comment(s): SCLERODERMA Medications and Allergies Home Medications Medication Instructions Recorded Confirmed Type Losartan Potassium 100 mg PO [facility] 10/30/14 08/24/24 History hydroCHLOROthiazide [Hydrodiuril] 25 mg PO DAILY #90 tab 09/30/22 08/24/24 Rx Metoprolol Succinate (ER) [Toprol 50 mg PO [facility] 04/25/23 08/24/24 History XL] Albuterol Nebulized [Ventolin 2.5 mg INHALATION Q4H PRN 05/03/24 08/24/24 History Nebulized] Albuterol Sulfate [Albuterol 2 puff INHALATION RT-Q4H PRN 05/03/24 08/24/24 History Sulfate Hfa] Ipratropium Nebulized [Atrovent 0.5 mg INHALATION Q4H 05/03/24 08/24/24 History Nebulized 0.2 MG/ML] predniSONE 10 mg PO QA 05/03/24 08/24/24 History Budesonide [Pulmicort] 0.5 mg INHALATION BID #60 ml 05/05/24 08/24/24 Rx Tiotropium 18 Mcg/Puff [Spiriva] 1 puff INHALATION DAILY #90 each 05/05/24 08/24/24 Rx Allergies Allergy/AdvReac Type Severity Reaction Status Date / Time hydrocodone bitartrate AdvReac states Verified 08/24/24 11:19 [From Vicodin] "doesn't make me feel good,I feel high" Physical Exam Vitals: Vital Signs Temp Pulse Pulse Resp BP Pulse Ox 08/24/24 19:50 94 08/24/24 19:38 95 08/24/24 19:10 97.9 F 104 H 16 124/72 97 08/24/24 16:51 100 08/24/24 16:44 100 08/24/24 16:29 98.4 F 107 H 20 155/74 98 08/24/24 15:31 100 26 H 158/81 100 08/24/24 14:46 95 24 120/72 97 08/24/24 14:18 103 H 26 H 146/80 99 08/24/24 13:48 102 H 28 H 146/79 98 08/24/24 13:13 110 H 26 H 149/79 96 08/24/24 12:59 104 H 26 H 184/85 93 L 08/24/24 12:36 105 H 26 H 153/73 100 08/24/24 12:09 105 H 26 H 130/87 95 08/24/24 11:30 100.1 F H 107 H 20 130/66 97 Intake and Output 08/24/24 08/24/24 08/25/24 14:59 22:59 06:59 Intake Total 1000 Balance 1000 Intake: IV 1000 Other: Voiding Method Toilet # Voids 1 Weight 78.2 kg 78.2 kg GENERAL EXAM: Alert, 88 year-old -Lao female, comfortable in no apparent distress. Patient currently on 3 L of oxygen nasal cannula HEAD: Normocephalic and atraumatic EYES: Normal reaction of pupils, equal size. NOSE: Clear with pink turbinates. THROAT: No erythema or exudates. NECK: No masses, no JVD. CHEST: No chest wall deformity. LUNGS: Equal air entry with expiratory wheezes heard with forced expiration. No conversational dyspnea or accessory muscle use.. CVS: S1 and S2 normal with no audible murmur, regular rhythm. No extra heart sounds ABDOMEN: No hepatosplenomegaly, active bowel sounds, no guarding or rigidity. SPINE: No scoliosis or deformity SKIN: No rashes CENTRAL NERVOUS SYSTEM: No focal deficits, tone is normal in all 4 extremities. EXTREMITIES: There is no peripheral edema, clubbing, or cyanosis. Peripheral pulses are intact Results - Laboratory Findings CBC and BMP: 08/24/24 17:23 08/24/24 17:23 Abnormal lab findings: Abnormal Labs 08/24/24 08/24/24 17:23 17:23 WBC 18.0 H Plt Count 502 H Neutrophils # 16.9 H Lymphocytes # 0.6 L Chloride 94 L Carbon Dioxide 37 H Glucose 191 H Total Protein 6.1 L - Diagnostic Findings Chest x-ray: image reviewed Assessment and Plan Plan: Acute COPD exacerbation,, having shortness of breath on outpatient basis, presented for bronchoscopy and the procedure was done by her therapeutic airway suctioning was done and the bronchial lavage was also obtained. Following that, the patient continued to have difficulties breathing and vigorous cough and for that reason she was hospitalized. Chest x-ray on arrival does not show any focal infiltrates or evidence of pneumonia, there is hyperinflation consistent with COPD. Previous history of pseudomonal tracheobronchitis/pneumonia Chronic hypoxemic respiratory failure, secondary to above, currently on 3 L of oxygen by nasal cannula. Hypertension Hyperlipidemia History of severe oxygen and steroid dependent COPD, normally maintained on Alie ztri for maintenance, but recently given samples of Trelegy inhaler. Schatzki' ring status/post balloon dilation Remote ex-smoker Acute leukocytosis Plan: The patient is post bronchoscopy and therapeutic airway suctioning was done and a copious amount of respiratory secretions and mucous plugs were aspirated Awaiting the culture results from the bronchial lavage Clinically stable Continue bronchodilators patient currently on 40 mg of prednisone Continue bronchodilators with DuoNeb updrafts Allow the patient to utilize Trelegy Ellipta from home The patient will be followed here in the hospital
--- NOTE | 2024-08-24 23:11 | P.PCN ---
Date of Procedure: 08/24/24 Operative Findings: Preoperative Diagnosis: COPD, severe Shortness of breath with symptoms of tracheobronchitis Postoperative Diagnosis: Severe COPD Tracheal bronchomalacia Tracheobronchitis Copiousness respiratory secretions and mucous plugs Procedure(s) Performed: Flexible bronchoscopy Therapeutic airway suctioning Bronchial alveolar lavage of the right lower lobe Anesthesia: MAC Surgeon: Da Gilbert Estimated Blood Loss (ml): 0 Pathology: other Condition: stable Disposition: same day Operative Findings: This procedure was done in the endoscopy suite under conscious sedation. A timeout was done. A preoperative consent was obtained. The patient is known to have severe COPD and the patient is having recurrent exacerbation and the patient has excessive cough and congestion. This procedure was done under conscious sedation. After achieving adequate sedation, the flexible bronchoscope was introduced through the right nostril and was advanced into the posterior pharynx and larynx. Examination of the upper airway structures were within normal limits. The patient had a normal epiglottis. The arytenoids and the vallecula and the cords were all within normal limits. A total of 2 mL of 1% lidocaine was applied to the vocal cord and following that the flexible bronchoscope was advanced into the upper trachea. Examination of the tracheobronchial tree was done. There was significant degree of tracheal bronchomalacia throughout the airway. There airway inspection included the entire trachea, bilateral mainstem bronchi, right upper lobe bronchus, bronchus intermedius, right middle lobe and right lower lobe bronchus and the various 10 segments on the right, and exertion the left side included left mainstem bronchus, left upper and left lower lobe bronchus and the various 8 segments on the left. At the same time, there was copious amounts of secretions that were thick, cloudy, and purulent and this was occupying the entire trachea in the bilateral mainstem bronchi and the various segments of the lower lobes bilaterally. Therapeutic airway suctioning was done and secretions were suctioned out. No underlying bronchial mucosa was quite inflamed and irritated. There was no endobronchial tumors identified. 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 A bronchial lavage of the right lower lobe was done. A total of 40 cc of fluid was infused and 20 mL of fluid was aspirated from the left lung. Therapeutic airway suctioning was done, bronchoscope was removed and the patient was transferred to recovery in stable condition.
[2024-08-25 06:12] LABS: Basophils % (A) 0 %; Eosinophils # (A) 0.2 k/uL (0-0.7); Eosinophils % (A) 1 %; HCT 40.1 % (34.0-46.0); HGB 12.6 gm/dL (11.4-16.0); Lymphocytes # (A) 1.1 k/uL (1.0-4.8); Lymphocytes % (A) 5 %; MCH 29.4 pg (25.0-35.0); MCHC 31.4 g/dL (31.0-37.0); MCV 93.6 fL (80.0-100.0); Mean Platelet Volume 7.6; Monocytes # (A) 0.6 k/uL (0-1.0); Monocytes % (A) 3 %; Neutrophils # (A) 19.2 k/uL (1.3-7.7); Neutrophils % (A) 91 %; Platelet Count 511 k/uL (150-450); RBC 4.28 m/uL (3.80-5.40); RDW 13.7 % (11.5-15.5); WBC 21.2 k/uL (3.8-10.6)
[2024-08-25 06:24] LABS: African American GFR (CKD) >90 (>60 ml/min/1.73 sqM); Anion Gap 5 mmol/L; Blood Urea Nitrogen 16 mg/dL (7-17); Calcium 9.4 mg/dL (8.4-10.2); Carbon Dioxide 37 mmol/L (22-30); Chloride 95 mmol/L (98-107); Glucose 122 mg/dL (74-99); Non-African American GFR(CKD) 81 (>60 ml/min/1.73 sqM); Sodium 137 mmol/L (137-145)
[2024-08-25] MEDS: IPRATROPIUM-ALBUTEROL 3 ML NEB INHALATION PRN (06:24)
[2024-08-25] MEDS ORDERED: TIOTROPIUM 2.5 MCG INHALER INHALATION SCH (08:00)
[2024-08-25 08:19] VITALS: BP 128/75; RESP 18; TEMP 97.6
[2024-08-25] MEDS ORDERED: methylPREDNISolone SOD SUCCI 125 MG/2 ML VIAL IV SCH (09:00)
[2024-08-25] MEDS: ENOXAPARIN 40 MG/0.4 ML SYRINGE SQ SCH (09:37)
[2024-08-25] MEDS: predniSONE 20 MG TAB PO SCH (09:37)
[2024-08-25] MEDS: LOSARTAN 50 MG TAB PO SCH (09:38)
[2024-08-25] MEDS: METOPROLOL SUCCINATE (ER) 50 MG TAB.ER.24H PO SCH (09:38)
[2024-08-25] MEDS: hydroCHLOROthiazide 25 MG TAB PO SCH (09:38)
[2024-08-25 12:42] VITALS: PULSE 96
--- NOTE | 2024-08-25 13:20 | P.DS ---
Providers Attending physician: Margarito Gutierrez Consults: 08/24/24 15:54 Consult Physician Routine Consulting Provider: Da Gilbert Consult Reason/Comments: COPD exacerbation Do you want consulting provider notified?: Yes Primary care physician: Ashley [facility] Hospital Course: Hospital Course: Patient is a 58-year-old female with COPD (3 L nasal cannula home oxygen), asthma, hypertension, hyperlipidemia, osteoarthritis here for blood-tinged cough postop bronchoscopy. On admission: Vitals: On admission, temperature 100.1 F, pulse rate 107, respiratory 20, blood pressure 130/66, 97% O2 saturation on 3 L nasal cannula Patient was admitted for acute COPD exacerbation status post bronchoscopy. Ordered steroids, chest x-ray, Zithromax, home inhalers, and updrafts. Patient also reported bilateral lower extremity edema and proBNP and bilateral lower extremity venous Doppler ultrasound ordered. proBNP was normal. Venous Doppler ultrasound was negative for DVT. Patient symptoms improved throughout hospital stay. She is cleared for discharge today and is prescribed Mucinex, prednisone taper and azithromycin for 2 more days. She is advised to follow-up with PCP and certified ophthalmic technician on outpatient basis. Final Diagnosis: #. Acute COPD exacerbation #. Bilateral lower extremity edema, stable #. Asthma #. Hypertension #. Hyperlipidemia #. Osteoarthritis Physical examination: Vital signs reviewed General: non toxic, no distress, on 3 L nasal cannula Derm: no unusual rashes/lesions, warm Head: atraumatic, normocephalic, symmetric Eyes: EOMI, anicteric sclera, pupils equal round reactive to light ENT: Nose and ears atraumatic Neck: No cervical lymphadenopathy, trachea midline, supple Mouth: no lip lesion, mucus membranes moist Cardiovascular: S1S2 reg, no murmur Lungs: CTA bilateral, no rhonchi, no rales, no accessory muscle use Abdominal: soft, nondistended, nontender to palpation, no guarding Ext: muscle strength 5 out of 5 in all 4 extremities grossly, no gross muscle atrophy, no contractures, positive dorsalis pedis pulse bilateral, +2 bilateral lower extremity edema Neuro: CN II-XI grossly intact, no gross focal neuro deficits Psych: Alert, oriented, appropriate affect and mood A total of 32 minutes of time were spent preparing this complex discharge summary. Patient was discharged on 08/25/2024 at 927. I have seen and evaluated the patient today. Discussed with the resident and agree with the residents finding and plan as documented in the resident's note. Changes highlighted in blue font. Patient Condition at Discharge: Good Plan - Discharge Summary Discharge Rx Participant: No New Discharge Prescriptions: New guaiFENesin [Mucinex] 600 mg PO Q12H PRN #60 tab PRN Reason: Congestion predniSONE See Taper PO DIRECTED 15 Days #32 tab Azithromycin [Zithromax] 500 mg PO DAILY #2 tab Continue Losartan Potassium 100 mg PO QAM Albuterol Sulfate [Albuterol Sulfate Hfa] 2 puff INHALATION RT-Q4H PRN PRN Reason: Shortness Of Breath Albuterol Nebulized [Ventolin Nebulized] 2.5 mg INHALATION Q4H PRN PRN Reason: coughing predniSONE 10 mg PO QAM Ipratropium Nebulized [Atrovent Nebulized 0.2 MG/ML] 0.5 mg INHALATION Q4H Budesonide [Pulmicort] 0.5 mg INHALATION BID #60 ml hydroCHLOROthiazide [Hydrodiuril] 25 mg PO DAILY #90 tab Metoprolol Succinate (ER) [Toprol XL] 50 mg PO QAM Tiotropium 18 Mcg/Puff [Spiriva] 1 puff INHALATION DAILY #90 each Discharge Medication List Losartan Potassium 100 mg PO QAM 10/30/14 [History] hydroCHLOROthiazide [Hydrodiuril] 25 mg PO DAILY #90 tab 09/30/22 [Rx] Metoprolol Succinate (ER) [Toprol XL] 50 mg PO QAM 04/25/23 [History] Albuterol Nebulized [Ventolin Nebulized] 2.5 mg INHALATION Q4H PRN 05/03/24 [History] Albuterol Sulfate [Albuterol Sulfate Hfa] 2 puff INHALATION RT-Q4H PRN 05/03/24 [History] Ipratropium Nebulized [Atrovent Nebulized 0.2 MG/ML] 0.5 mg INHALATION Q4H 05/03/24 [History] predniSONE 10 mg PO QAM 05/03/24 [History] Budesonide [Pulmicort] 0.5 mg INHALATION BID #60 ml 05/05/24 [Rx] Tiotropium 18 Mcg/Puff [Spiriva] 1 puff INHALATION DAILY #90 each 05/05/24 [Rx] Azithromycin [Zithromax] 500 mg PO DAILY #2 tab 08/25/24 [Rx] guaiFENesin [Mucinex] 600 mg PO Q12H PRN #60 tab 08/25/24 [Rx] predniSONE See Taper PO DIRECTED 15 Days #32 tab 08/25/24 [Rx] Follow up Appointment(s)/Referral(s): Ashley Ku MD [Primary Care Provider] - 1 Week (Office is not answering at time of discharge. Please call for follow-up appointment) Da Gilbert MD [STAFF PHYSICIAN] - As Needed (Office will call to make follow up appointment. ) Patient Instructions/Handouts: *Sur[facility] - Bronchoscopy Discharge Instructions, *[facility] - (Anesthesia) Discharge Instructions Outpatient Surgery, COPD (Chronic Obstructive Pulmonary Disease) (DC) Activity/Diet/Wound Care/Special Instructions: Follow up with PCP and Pulmonology Discharge Disposition: HOME SELF-CARE
--- NOTE | 2024-08-25 17:54 | P.PN ---
Subjective Progress Note Date: 08/25/24 On 08/25/2024, no significant complaints. The patient is post bronchoscopy and the patient was treated with bronchodilators and steroids over the past 24 hours and she is much improved. No chest pain. Continues to have some limited cough and congestion. Results of the BAL are still pending. The viral screen has been negative. Afebrile and hemodynamically stable. The white cell count is at 21 with a hemoglobin 12.6. Electrolytes show a sodium level of 137, potassium is 4, bicarb is at 37. Procalcitonin level is at 0.06. Chest x-ray showed no acute abnormalities it was consistent with COPD. Chronic parenchymal fibrotic changes are seen without any suspicious airspace disease. Doppler of the lower extremities were also negative. Patient denies having any other specific complaints. She wants to go home. Objective - Vital Signs Vital signs: Vital Signs Temp 97.6 F 08/25/24 08:00 Pulse 96 08/25/24 12:50 Resp 18 08/25/24 08:00 BP 128/75 08/25/24 08:00 Pulse Ox 99 08/25/24 09:11 FiO2 Intake & Output 08/24/24 08/25/24 08/25/24 18:59 06:59 18:59 Intake Total 1000 Balance 1000 Weight 78.2 kg Intake: IV 1000 Other: Voiding Method Toilet # Voids 2 1 - Exam GENERAL EXAM: Alert, 88 year-old -[place] female, comfortable in no apparent distress. Patient currently on 3 L of oxygen nasal cannula HEAD: Normocephalic and atraumatic EYES: Normal reaction of pupils, equal size. NOSE: Clear with pink turbinates. THROAT: No erythema or exudates. NECK: No masses, no JVD. CHEST: No chest wall deformity. LUNGS: Equal air entry with expiratory wheezes heard with forced expiration. No conversational dyspnea or accessory muscle use.. CVS: S1 and S2 normal with no audible murmur, regular rhythm. No extra heart sounds ABDOMEN: No hepatosplenomegaly, active bowel sounds, no guarding or rigidity. SPINE: No scoliosis or deformity SKIN: No rashes CENTRAL NERVOUS SYSTEM: No focal deficits, tone is normal in all 4 extremities. EXTREMITIES: There is no peripheral edema, clubbing, or cyanosis. Peripheral pulses are intact - Labs CBC & Chem 7: 08/25/24 05:47 08/25/24 05:47 Labs: Abnormal Lab Results - Last 24 Hours (Table) 08/25/24 08/25/24 Range/Units 05:47 05:47 WBC 21.2 H (3.8-10.6) k/uL Plt Count 511 H (150-450) k/uL Neutrophils # 19.2 H (1.3-7.7) k/uL Chloride 95 L (98-107) mmol/L Carbon Dioxide 37 H (22-30) mmol/L Glucose 122 H (74-99) mg/dL Assessment and Plan Plan: Acute COPD exacerbation,, having shortness of breath on outpatient basis, presented for bronchoscopy and the procedure was done by her therapeutic airway suctioning was done and the bronchial lavage was also obtained. Following that, the patient continued to have difficulties breathing and vigorous cough and for that reason she was hospitalized. Chest x-ray on arrival does not show any focal infiltrates or evidence of pneumonia, there is hyperinflation consistent with COPD. Clinically improving. Previous history of pseudomonal tracheobronchitis/pneumonia Chronic hypoxemic respiratory failure, secondary to above, currently on 3 L of oxygen by nasal cannula. Hypertension Hyperlipidemia History of severe oxygen and steroid dependent COPD, normally maintained on Breztri for maintenance, but recently given samples of Trelegy inhaler. Schatzki' ring status/post balloon dilation Remote ex-smoker Acute leukocytosis Plan: Clinically improved The patient is post bronchoscopy and therapeutic airway suctioning was done and a copious amount of respiratory secretions and mucous plugs were aspirated Awaiting the culture results from the bronchial lavage Clinically stable Continue bronchodilators Prednisone burst taper at time of discharge and the patient was maintained on 10 mg of prednisone on outpatient basis Continue bronchodilators with DuoNeb updrafts Continue Trelegy Ellipta from home Oxygen therapy Home today
== END 2024-08-25 14:26 | disposition home or self-care (01) ==
LOC: ORWHC2ENDO 10:42 → 4SSUR 12:04 → ORWHC2ENDO 08-25 14:26
PROVIDERS: ATTEND Student in an Organized Health Care Education/Training Program
DX: J44.1 Chronic obstructive pulmonary disease with (acute) exacerbation (principal); I25.2 Old myocardial infarction; B96.5 Pseudomonas (aeruginosa) (mallei) (pseudomallei) as the cause of diseases classified elsewhere; I10 Essential (primary) hypertension; E78.5 Hyperlipidemia, unspecified; R60.0 Localized edema; M19.90 Unspecified osteoarthritis, unspecified site; J30.9 Allergic rhinitis, unspecified; Z90.49 Acquired absence of other specified parts of digestive tract; Z90.710 Acquired absence of both cervix and uterus; Z99.81 Dependence on supplemental oxygen; Z96.651 Presence of right artificial knee joint; Z86.0100 Personal history of colon polyps, unspecified; Z87.891 Personal history of nicotine dependence; Z80.1 Family history of malignant neoplasm of trachea, bronchus and lung; Z80.0 Family history of malignant neoplasm of digestive organs; Z88.5 Allergy status to narcotic agent; Z79.52 Long term (current) use of systemic steroids; Z79.51 Long term (current) use of inhaled steroids; Z79.899 Other long term (current) drug therapy; Z86.16 Personal history of COVID-19; Z87.19 Personal history of other diseases of the digestive system
CPT/HCPCS: 94640 ×4; 94760; 87496; 87498; 87529; 83880; 80053; 80048; 85025 ×2; 87502; 87798 ×2; 87634; 87070; 87205; 87116; 87102; 87206; 84145; 87636; 87635; 71045; 93970; 31624; J2003; J1650; J2704; J7512; J2919

== ENCOUNTER 2024-11-18 16:24 | Inpatient (IN) | payer MEDICARE, BC ==
[2024-11-18] MEDS: IPRATROPIUM 0.5 MG/2.5 ML NEBU INHALATION STA (16:55)
[2024-11-18] MEDS: ALBUTEROL NEBULIZED 2.5 MG/3 ML INHALATION STA (16:55)
[2024-11-18] MEDS: methylPREDNISolone SOD SUCCI 125 MG/2 ML VIAL IV STA (17:09)
[2024-11-18 17:19] LABS: Basophils # (A) 0.04 10*3/uL (0.00-0.10); Basophils % (A) 0.4 %; Eosinophils # (A) 0.04 10*3/uL (0.04-0.35); Eosinophils % (A) 0.4 %; HCT 39.9 % (37.2-46.3); HGB 13.2 g/dL (12.0-15.0); Lymphocytes % (A) 8.3 %; MCH 31.6 pg (27.0-32.0); MCHC 33.1 g/dL (32.0-37.0); MCV 95.5 fL (80.0-97.0); Mean Platelet Volume 9.7 fL (9.5-12.2); Monocytes # (A) 0.11 10*3/uL (0.20-1.00); Monocytes % (A) 1.1 %; Neutrophils # (A) 8.62 10*3/uL (1.80-7.70); Neutrophils % (A) 89.4 %; Platelet Count 396 10*3/uL (140-440); RBC 4.18 10*6/uL (4.10-5.20); RDW 12.9 % (11.5-14.5); WBC 9.65 10*3/uL (4.50-10.00)
--- NOTE | 2024-11-18 17:19 | ED ---
General Adult HPI - General Chief complaint: Shortness of Breath Stated complaint: KATIA Time Seen by Provider: 11/18/24 16:29 Source: patient, family, RN notes reviewed, old records reviewed Mode of arrival: wheelchair Limitations: no limitations - History of Present Illness Initial comments: 89-year-old female presenting with increased cough and dyspnea. History of oxygen dependent COPD. Typically wears 3 L of oxygen. No measured fever. She states she does have recurrent issues with COPD. Denies lower extremity pain or swelling. Denies any history of CAD or congestive heart failure. - Related Data Home Medications Medication Instructions Recorded Confirmed Losartan Potassium 100 mg PO QAM 10/30/14 08/24/24 Metoprolol Succinate (ER) [Toprol 50 mg PO QAM 04/25/23 08/24/24 XL] Albuterol Nebulized [Ventolin 2.5 mg INHALATION Q4H PRN 05/03/24 08/24/24 Nebulized] Albuterol Sulfate [Albuterol 2 puff INHALATION RT-Q4H PRN 05/03/24 08/24/24 Sulfate Hfa] Ipratropium Nebulized [Atrovent 0.5 mg INHALATION Q4H 05/03/24 08/24/24 Nebulized 0.2 MG/ML] predniSONE 10 mg PO QAM 05/03/24 08/24/24 Previous Rx's Medication Instructions Recorded hydroCHLOROthiazide [Hydrodiuril] 25 mg PO DAILY #90 tab 09/30/22 Budesonide [Pulmicort] 0.5 mg INHALATION BID #60 ml 05/05/24 Tiotropium 18 Mcg/Puff [Spiriva] 1 puff INHALATION DAILY #90 each 05/05/24 Azithromycin [Zithromax] 500 mg PO DAILY #2 tab 08/25/24 guaiFENesin [Mucinex] 600 mg PO Q12H PRN #60 tab 08/25/24 predniSONE See Taper PO DIRECTED 15 Days 08/25/24 #32 tab Allergies Allergy/AdvReac Type Severity Reaction Status Date / Time hydrocodone bitartrate AdvReac states Verified 08/24/24 11:19 [From Vicodin] "doesn't make me feel good,I feel high" Review of Systems ROS Statement: Those systems with pertinent positive or pertinent negative responses have been documented in the HPI. ROS Other: All systems not noted in ROS Statement are negative. 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 Last Myocardial Infarction Date:: 40 years ago History of Any Multi-Drug Resistant Organisms: None Reported Past Surgical History: Cholecystectomy, Hysterectomy, Orthopedic Surgery Additional Past Surgical History / Comment(s): KNEE arthroscopy, COLONOSCOPY- LARGE POLYP REMOVED, EGD, cataracts, Right TKA (10/21/21) Past Anesthesia/Blood Transfusion Reactions: No Reported Reaction Additional Past Anesthesia/Blood Transfusion Reaction / Comment(s): No hx blood transfusion. Past Psychological History: No Psychological Hx Reported Smoking Status: Former smoker - Past Family History Sister(s) Family Medical History: Cancer Additional Family Medical History / Comment(s): #1 sister colon cancer, # 2 sister lung cancer. Father Family Medical History: Cancer Additional Family Medical History / Comment(s): Prostate cancer. Mother Family Medical History: Asthma Additional Family Medical History / Comment(s): Heart problems. Son(s) Additional Family Medical History / Comment(s): SCLERODERMA General Exam Limitations: no limitations General appearance: alert, in distress Head exam: Present: atraumatic, normocephalic Eye exam: Present: normal appearance, PERRL ENT exam: Present: normal exam Neck exam: Present: normal inspection. Absent: tenderness, meningismus Respiratory exam: Present: respiratory distress, wheezes, accessory muscle use, decreased breath sounds Cardiovascular Exam: Present: normal rhythm, tachycardia GI/Abdominal exam: Present: soft. Absent: distended, tenderness, guarding Extremities exam: Present: normal inspection, normal capillary refill. Absent: pedal edema Neurological exam: Present: alert, oriented X3. Absent: CN II-XII intact, motor sensory deficit Psychiatric exam: Present: normal affect, normal mood Skin exam: Present: warm, dry, intact. Absent: cyanosis, diaphoretic Course Vital Signs 11/18/24 11/18/24 11/18/24 16:25 16:35 16:55 Temperature 98 F Pulse Rate 113 H 92 Respiratory 26 H 24 22 Rate Blood Pressure 145/74 O2 Sat by Pulse 85 L Oximetry 11/18/24 11/18/24 17:21 17:27 Temperature Pulse Rate 84 88 Respiratory 22 18 Rate Blood Pressure 149/83 O2 Sat by Pulse 97 Oximetry Medical Decision Making - Medical Decision Making Was pt. sent in by a medical professional or institution ([facility], [facility] [employer], urgent care, hospital, or care home...) When possible be specific @ -No Did you speak to anyone other than the patient for history (EMS, parent, family, police, friend...)? What history was obtained from this source @ -No Did you review nursing and triage notes (agree or disagree)? Why? @ -I reviewed and agree with nursing and triage notes Were old charts reviewed (outside hosp., previous admission, EMS record, old EKG, old radiological studies, urgent care reports/EKG's, care home records)? Report findings @ -No old charts were reviewed Differential Dyspnea: Coronary syndrome, arrhythmia, tamponade, asthma, COPD, pulmonary embolism, pneumonia, pneumothorax, pulmonary effusion, anaphylaxis, diabetic ketoacidosis, flailed chest, pulmonary contusion, diaphragmatic rupture, anemia, neuromuscular, this is not meant to be an all-inclusive list. EKG interpreted by me (3pts min.). @Sinus rhythm rate of 85, TX interval 157, QRS duration 82, QTc 417, no ST segment elevation. X-rays interpreted by me (1pt min.). @ -Chest x-ray negative for consolidative pneumonia or pneumothorax. CT interpreted by me (1pt min.). @ -None done U/S interpreted by me (1pt. min.). @ -None done What testing was considered but not performed or refused? (CT, X-rays, U/S, labs)? Why? @ -None What meds were considered but not given or refused? Why? @ -None Did you discuss the management of the patient with other professionals (professionals i.e. [facility], [employer], lab, RT, psych nurse, social service liaison, psych therapist, teacher, detention officer, outpatient case manager)? Give summary @ -[facility] physician group Was smoking cessation discussed for >3mins.? @ -No Was critical care preformed (if so, how long)? @ -Yes, 35 minutes Were there social determinants of health that impacted care today? How? (Homelessness, low income, unemployed, alcoholism, drug addiction, transportation, low edu. Level, literacy, decrease access to med. care, long-term, rehab)? @ -No Was there de-escalation of care discussed even if they declined (Discuss DNR or withdrawal of care, Hospice)? DNR status @ -No What co-morbidities impacted this encounter? (DM, HTN, Smoking, COPD, CAD, Cancer, CVA, ARF, Chemo, Hep., AIDS, mental health diagnosis, sleep apnea, morbid obesity)? @ -Oxygen dependent COPD Was patient admitted / discharged? Hospital course, mention meds given and route, prescriptions, significant lab abnormalities, going to OR and other pertinent info. @89-year-old female presenting with worsening cough and dyspnea. Patient is in moderate respiratory distress upon arrival, decreased air entry, wheezing, retractions. 85% on supplemental oxygen. Patient given albuterol, Atrovent, steroids in the emergency department with significant improvement. She will be admitted for COPD exacerbation. Undiagnosed new problem with uncertain prognosis? @ -No Drug Therapy requiring intensive monitoring for toxicity (Heparin, Nitro, Insulin, Cardizem)? @ -No Were any procedures done? @ -No Diagnosis/symptom? @COPD exacerbation Acute, or Chronic, or Acute on Chronic? @Acute on chronic Uncomplicated (without systemic symptoms) or Complicated (systemic symptoms)? @ -[Complicated Side effects of treatment? @ -No Exacerbation, Progression, or Severe Exacerbation? @ -No Poses a threat to life or bodily function? How? (Chest pain, [place], [place], pneumonia, PE, COPD, DKA, ARF, appy, cholecystitis, CVA, Diverticulitis, Homicidal, Suicidal, threat to staff... and all critical care pts) @Yes, respiratory failure - Lab Data Result diagrams: 11/18/24 17:07 11/18/24 17:07 Lab Results 11/18/24 11/18/24 11/18/24 Range/Units 17:07 17:07 17:07 WBC 9.65 (4.50-10.00) 10*3/uL RBC 4.18 (4.10-5.20) 10*6/uL Hgb 13.2 (12.0-15.0) g/dL Hct 39.9 (37.2-46.3) % MCV 95.5 (80.0-97.0) fL MCH 31.6 (27.0-32.0) pg MCHC 33.1 (32.0-37.0) g/dL Plt Count 396 (140-440) 10*3/uL MPV 9.7 (9.5-12.2) fL Immature Gran % (Auto) 0.4 % Neutrophils % 89.4 % Lymphocytes % 8.3 % Monocytes % 1.1 % Eosinophils % 0.4 % Basophils % 0.4 % Immature Gran # 0.04 (0.00-0.04) 10*3/uL Neutrophils # 8.62 H (1.80-7.70) 10*3/uL Lymphocytes # 0.80 L (0.90-5.00) 10*3/uL Monocytes # 0.11 L (0.20-1.00) 10*3/uL Eosinophils # 0.04 (0.04-0.35) 10*3/uL Basophils # 0.04 (0.00-0.10) 10*3/uL PT 11.3 (10.0-12.5) sec INR 1.0 (<1.2) APTT 22.4 (22.0-30.0) sec Sodium 139 (137-145) mmol/L Potassium 4.0 (3.5-5.1) mmol/L Chloride 100 (98-107) mmol/L Carbon Dioxide 29 (22-30) mmol/L Anion Gap 10 mmol/L BUN 20 H (7-17) mg/dL Creatinine 0.57 (0.52-1.04) mg/dL Est GFR (CKD-EPI)AfAm >90 (>60 ml/min/1.73 sqM) Est GFR (CKD-EPI)NonAf 84 (>60 ml/min/1.73 sqM) Glucose 147 H (74-99) mg/dL Plasma Lactic Acid Jace (0.7-2.0) mmol/L Calcium 9.8 (8.4-10.2) mg/dL Magnesium 2.1 (1.6-2.3) mg/dL Total Bilirubin 0.9 (0.2-1.3) mg/dL AST 36 (14-36) U/L ALT 22 (4-34) U/L Alkaline Phosphatase 72 (38-126) U/L NT-Pro-B Natriuret Pep 141 pg/mL Total Protein 7.0 (6.3-8.2) g/dL Albumin 4.3 (3.5-5.0) g/dL // Range/Units 17:07 WBC (4.50-10.00) 10*3/uL RBC (4.10-5.20) 10*6/uL Hgb (12.0-15.0) g/dL Hct (37.2-46.3) % MCV (80.0-97.0) fL MCH (27.0-32.0) pg MCHC (32.0-37.0) g/dL Plt Count (140-440) 10*3/uL MPV (9.5-12.2) fL Immature Gran % (Auto) % Neutrophils % % Lymphocytes % % Monocytes % % Eosinophils % % Basophils % % Immature Gran # (0.00-0.04) 10*3/uL Neutrophils # (1.80-7.70) 10*3/uL Lymphocytes # (0.90-5.00) 10*3/uL Monocytes # (0.20-1.00) 10*3/uL Eosinophils # (0.04-0.35) 10*3/uL Basophils # (0.00-0.10) 10*3/uL PT (10.0-12.5) sec INR (<1.2) APTT (22.0-30.0) sec Sodium (137-145) mmol/L Potassium (3.5-5.1) mmol/L Chloride (98-107) mmol/L Carbon Dioxide (22-30) mmol/L Anion Gap mmol/L BUN (7-17) mg/dL Creatinine (0.52-1.04) mg/dL Est GFR (CKD-EPI)AfAm (>60 ml/min/1.73 sqM) Est GFR (CKD-EPI)NonAf (>60 ml/min/1.73 sqM) Glucose (74-99) mg/dL Plasma Lactic Acid Jace 1.4 (0.7-2.0) mmol/L Calcium (8.4-10.2) mg/dL Magnesium (1.6-2.3) mg/dL Total Bilirubin (0.2-1.3) mg/dL AST (14-36) U/L ALT (4-34) U/L Alkaline Phosphatase (38-126) U/L NT-Pro-B Natriuret Pep pg/mL Total Protein (6.3-8.2) g/dL Albumin (3.5-5.0) g/dL Critical Care Time Critical Care Time: Yes Total Critical Care Time: 35 Disposition Clinical Impression: COPD exacerbation Disposition: ADMITTED IP TO THIS HOSP Condition: Stable Is patient prescribed a controlled substance at d/c from ED?: No Referrals: Nonstaff,Physician [REFERRING] - 1-2 days Time of Disposition: 18:17
[2024-11-18 17:30] LABS: Partial Thromboplastin Time 22.4 sec (22.0-30.0); Prothrombin Time 11.3 sec (10.0-12.5)
[2024-11-18 17:39] LABS: ALT 22 U/L (4-34); African American GFR (CKD) >90 (>60 ml/min/1.73 sqM); Albumin 4.3 g/dL (3.5-5.0); Anion Gap 10 mmol/L; Blood Urea Nitrogen 20 mg/dL (7-17); Calcium 9.8 mg/dL (8.4-10.2); Carbon Dioxide 29 mmol/L (22-30); Chloride 100 mmol/L (98-107); Glucose 147 mg/dL (74-99); Non-African American GFR(CKD) 84 (>60 ml/min/1.73 sqM); Sodium 139 mmol/L (137-145); Total Bilirubin 0.9 mg/dL (0.2-1.3)
[2024-11-18 17:40] LABS: AST 36 U/L (14-36); Alkaline Phosphatase 72 U/L (38-126); Magnesium 2.1 mg/dL (1.6-2.3)
[2024-11-18 17:47] LABS: NT-Pro-B-Type Natriuretic Pept 141 pg/mL
[2024-11-18] MEDS ORDERED: IPRATROPIUM-ALBUTEROL 3 ML NEB INHALATION PRN ×2 (18:13→20:31)
[2024-11-18] MEDS ORDERED: NALOXONE 0.4 MG/ML 1 ML VIAL IVP PRN (18:13)
[2024-11-18] MEDS: AZITHROMYCIN 500 MG in SODIUM CHLORIDE 0.9% 250 ML IVPB STA (18:39)
[2024-11-18] MEDS: LACTATED RINGERS 1,000 ML IV SCH (18:39)
--- NOTE | 2024-11-18 18:55 | XR ---
EXAMINATION TYPE: XR chest 1V portable DATE OF EXAM: 11/18/2024 5:14 PM CLINICAL INDICATION:Female, 89 years old with history of [place]; [facility] COMPARISON: Chest radiographs from 08/24/2024. TECHNIQUE: XR chest 1V portable Frontal view of the chest. FINDINGS: Lungs/Pleura: Chronic fibrotic pulmonary parenchymal changes are again seen in the bilateral lungs. N o pleural effusion or pneumothorax seen. Round radiodensities in the right lower lung zone may repres ent subcentimeter pulmonary nodules. Pulmonary vascularity: Unchanged. Heart/mediastinum: Cardiomediastinal silhouette is unremarkable. Atherosclerotic calcifications are seen in the aorta. Musculoskeletal: No acute osseous pathology. Sclerotic rounded foci are seen in the bilateral humeral heads which may represent bone islands. IMPRESSION: Chronic fibrotic changes are seen. No acute cardiopulmonary disease/process. Round radiodense foci in the humerus may represent bone islands. These can be further characterized w ith dedicated radiographs. Round subcentimeter radiodense foci in the right lower lung zone may repre sent pulmonary nodules. If these need to be further characterized consider a dedicated CT chest on a nonemergent basis. [facility], , 11/18/2024 6:52 PM
[2024-11-18] MEDS: IPRATROPIUM-ALBUTEROL 3 ML NEB INHALATION SCH (19:30)
--- NOTE | 2024-11-18 20:33 | P.HPIM ---
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 She presents to the emergency department with increasing cough and dyspnea for about 1 week. She does state that she has recurrent issues with her COPD. She feels as though she has been feeling unwell for the past 3 weeks or so, having endured intermittent fevers/ch ills and sputum that was yellowish/greenish in color, however she states is not super productive at this time. She states that she is currently feeling much better than when she first arrived. Labratory review: - WBCs 9.65, hemoglobin 15.2, hematocrit 39.9, platelet 396; sodium 139, Tessman 4.0, bicarb 29, BUN 20, creatinine 0.57, lactic acid 1.4, calcium 9.8, magnesium 2.1, total bilirubin 0.9, AST 36, ALT 22, alkaline phosphatase 72 - proBNP 141 Imaging: - Chest x-ray done in the ER shows chronic fibrotic changes with no acute cardiopulmonary process/disease - EKG done in the ER independently read and interpreted showed heart rate of 85, sinus rhythm, no ST segment elevation or depression seen, no T-wave inversions seen; QTc 417 Vitals: - On arrival: Blood pressure 145/74, heart rate 113, respiratory rate 26, SpO2 85% on 3 L nasal cannula - Most recently: Blood pressure 143/81, heart rate 84, respiratory rate 20, SpO2 97% on 3 L of cannula Patient admitted to internal medicine service REVIEW OF SYSTEMS: Pertinent positives and negatives noted in HPI. The rest of the 14-point review of systems is negative. Physical Exam: General: nontoxic, no distress, appears at stated age Derm: warm, dry, intact Head: atraumatic, normocephalic, symmetric Eyes: EOMI, anicteric sclera Mouth: no lip lesion, mucus membranes moist Cardiovascular: S1 S2 reg, no murmur, rubs, or gallops Lungs: Decreased breath sound, with noted wheezes bilaterally Abdominal: soft, non-tender to palpataion, no appreciable organomegaly Extremities: no gross muscle atrophy, no edema, no contractures Neuro: Alert, Oriented, CNII-XII grossly intact, gait normal Psych: well appearing, appropriate affect Assessment and plan 89-year-old female with PMH of COPD with chronic hypoxic respiratory failure on 3 L nasal cannula at home, hypertension, 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 She presents to the emergency department with increasing cough and dyspnea for about 1 week. #Acute on chronic hypoxic respiratory failure #COPD exacerbation #Nonanion gap metabolic alkalosis, chronic CO2 retainer secondary to above - On arrival prior to any breathing treatments, SpO2 mid 80% while on 3 L - Received Ventolin, Atrovent and Zithromax once in the ED - Received 125 mg IV Solu-Medrol once in ED - Continue with DuoNebs 4 times daily and every 4 hours as needed - Continue with IV Solu-Medrol 60 mg every 12 hours; maintained at home on 20 mg prednisone daily, which was unsuccessful in alleviating her symptoms - Continue with Zithromax 500 mg daily for total of 3 days (received 1 dose in ED) - Continue supplemental oxygen to target SpO2 of 88-92% - Blood culture ordered, currently - Pulmonology consulted Chronic conditions: #Hypertension - Continue home metoprolol 50 mg daily, losartan 100 mg daily and hydrochlorothiazide 25 mg daily - Continue to monitor electrolytes GI prophylaxis: None DVT prophylaxis: Lovenox 40 mg subcu daily The patient is admitted with an anticipated more than than 2 midnight stay for evaluation of COPD exacerbation. CODE STATUS: Full code Discussed with: Patient Anticipated discharge place: Home Dictation was produced using [employer] dictation software. please excuse any grammatical, word or spelling errors. Al Matute MD PGY-1 IM Attestation : Patient seen and examined with er medical technician. Agree with above assessment an d plan. Patient is an 89-year-old with a past medical history of chronic hypoxic respiratory failure on 2 L nasal cannula oxygen, essential hypertension and osteoarthritis who presented to the ED complaining of cough and dyspnea for the past week. She does report not feeling well for the past few weeks with intermittent fever associated with purulent sputum of whitish-greenish sputum. Chest x-ray showing chronic changes and nothing acute. She was seen on 3 L nasal cannula oxygen. Will keep patient on scheduled DuoNebs and IV Solu-Medrol 40 twice daily along with Pulmicort twice daily. 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 Last Myocardial Infarction Date:: 40 years ago History of Any Multi-Drug Resistant Organisms: None Reported Past Surgical History: Cholecystectomy, Hysterectomy, Orthopedic Surgery Additional Past Surgical History / Comment(s): KNEE arthroscopy, COLONOSCOPY- LARGE POLYP REMOVED, EGD, cataracts, Right TKA (10/21/21) Past Anesthesia/Blood Transfusion Reactions: No Reported Reaction Additional Past Anesthesia/Blood Transfusion Reaction / Comment(s): No hx blood transfusion. Past Psychological History: No Psychological Hx Reported Smoking Status: Former smoker - Past Family History Sister(s) Family Medical History: Cancer Additional Family Medical History / Comment(s): #1 sister colon cancer, # 2 sister lung cancer. Father Family Medical History: Cancer Additional Family Medical History / Comment(s): Prostate cancer. Mother Family Medical History: Asthma Additional Family Medical History / Comment(s): Heart problems. Son(s) Additional Family Medical History / Comment(s): SCLERODERMA Medications and Allergies Home Medications Medication Instructions Recorded Confirmed Type Losartan Potassium 100 mg PO DAILY 10/30/14 11/18/24 History hydroCHLOROthiazide [Hydrodiuril] 25 mg PO DAILY #90 tab 09/30/22 11/18/24 Rx Metoprolol Succinate (ER) [Toprol 50 mg PO DAILY 04/25/23 11/18/24 History XL] Albuterol Nebulized [Ventolin 2.5 mg INHALATION RT-QID 05/03/24 11/18/24 History Nebulized] Albuterol Sulfate [Albuterol 2 puff INHALATION RT-Q4H PRN 05/03/24 11/18/24 History Sulfate Hfa] Fluorometholone 0.1% Ophth Sandy 1 drops BOTH EYES TID 11/18/24 11/18/24 History [Fml] predniSONE [Deltasone] 20 mg PO DAILY 06/07/25 06/07/25 History Allergies Allergy/AdvReac Type Severity Reaction Status Date / Time hydrocodone bitartrate AdvReac states Verified 11/18/24 18:24 [From Vicodin] "doesn't make me feel good,I feel high" Physical Exam Vitals: Vital Signs Temp Pulse Resp BP Pulse Ox 11/18/24 19:32 88 11/18/24 19:15 98.7 F 88 18 138/64 99 11/18/24 18:15 84 20 143/81 97 11/18/24 17:27 88 18 149/83 97 11/18/24 17:21 84 22 11/18/24 16:55 92 22 11/18/24 16:35 24 11/18/24 16:25 98 F 113 H 26 H 145/74 85 L Intake and Output 11/18/24 11/18/24 11/18/24 06:59 14:59 22:59 Other: Weight 81.647 kg Results CBC & Chem 7: 11/18/24 17:07 11/18/24 17:07 Labs: Abnormal Lab Results - Last 24 Hours (Table) 11/18/24 11/18/24 Range/Units 17:07 17:07 Neutrophils # 8.62 H (1.80-7.70) 10*3/uL Lymphocytes # 0.80 L (0.90-5.00) 10*3/uL Monocytes # 0.11 L (0.20-1.00) 10*3/uL BUN 20 H (7-17) mg/dL Glucose 147 H (74-99) mg/dL
[2024-11-18] MEDS: methylPREDNISolone SOD SUCCI 125 MG/2 ML VIAL IV SCH (23:27)
[2024-11-18] MEDS: FLUOROMETHOLONE 0.1% OPHTH DROPS 5 ML BTL BOTH EYES SCH (23:27)
[2024-11-19] MEDS ORDERED: methylPREDNISolone SOD SUCCI 125 MG/2 ML VIAL IV SCH
[2024-11-19 07:50] LABS: ABG HCO3 36 mmol/L (21-25); ABG Oxygen Saturation 97.9 % (94-97); ABG PCO2 55 mmHg (35-45); ABG PH 7.43 (7.35-7.45); ABG PO2 92 mmHg (83-108); ABG TCO2 38 mmol/L (19-24); Allen Test Performed? Yes
[2024-11-19] MEDS: BUDESONIDE 0.5 MG/2 ML NEBU INHALATION SCH (08:04)
[2024-11-19] MEDS: hydroCHLOROthiazide 25 MG TAB PO SCH (08:35)
[2024-11-19] MEDS: LOSARTAN 50 MG TAB PO SCH (08:35)
[2024-11-19] MEDS: ENOXAPARIN 40 MG/0.4 ML SYRINGE SQ SCH (08:35)
[2024-11-19] MEDS: METOPROLOL SUCCINATE (ER) 50 MG TAB.ER.24H PO SCH (08:35)
[2024-11-19] MEDS: AZITHROMYCIN 500 MG TAB PO SCH (08:35)
[2024-11-19] MEDS ORDERED: RX INFO: IV CONTRAST WAS GIVEN 1 EACH MISC MISCELLANE PRN (09:10)
[2024-11-19 09:41] LABS: HCT 38.7 % (37.2-46.3); HGB 12.7 g/dL (12.0-15.0); MCH 31.4 pg (27.0-32.0); MCHC 32.8 g/dL (32.0-37.0); MCV 95.6 fL (80.0-97.0); Mean Platelet Volume 9.6 fL (9.5-12.2); Platelet Count 385 10*3/uL (140-440); RBC 4.05 10*6/uL (4.10-5.20); RDW 12.9 % (11.5-14.5); WBC 14.18 10*3/uL (4.50-10.00)
[2024-11-19 09:59] LABS: African American GFR (CKD) 79 (>60 ml/min/1.73 sqM); Anion Gap 8 mmol/L; Blood Urea Nitrogen 22 mg/dL (7-17); Calcium 9.5 mg/dL (8.4-10.2); Carbon Dioxide 33 mmol/L (22-30); Chloride 98 mmol/L (98-107); Glucose 220 mg/dL (74-99); Non-African American GFR(CKD) 69 (>60 ml/min/1.73 sqM); Potassium 3.6 mmol/L (3.5-5.1); Sodium 139 mmol/L (137-145)
--- NOTE | 2024-11-19 11:17 | CT ---
EXAMINATION TYPE: CT chest w con DATE OF EXAM: 11/19/2024 10:48 AM COMPARISON: 09/26/2022 CLINICAL INDICATION: Female, 89 years old with history of hx TB, COPD increased SOB xray concerns of nodules, hx of TB, COPD increased, SOB, x-ray concerns of nodules TECHNIQUE: Axial images were obtained at 5 mm thick sections. Reconstructed images are reviewed on [employer] computer in the coronal plane. Contrast used:100ml mL of Isovue 300 with IV Contrast, (none if empty) Oral contrast used: (none if empty) CT DLP: 292.6 mGycm, Automated exposure control for dose reduction was used. FINDINGS: Portion of the thyroid visualized is normal. No suspicious lung nodules or focal infiltrates are present. No suspicious right lower lobe nodules e vident. Advanced emphysematous changes are present. No enlarged mediastinal or hilar adenopathy is evident. . Shotty lymph nodes are present. The ascend ing aorta diameter at the level of the main pulmonary artery is 3.0 cm. The main pulmonary artery di ameter at the bifurcation is 3.1 cm. Mild coronary artery calcifications present. Limited CT sections are obtained through the upper abdomen. There is a 5.5 cm cyst within the liver. IMPRESSION: 1. Advanced emphysematous changes. 2. No suspicious lung nodules. [facility], , 11/19/2024 11:15 AM
[2024-11-19] MEDS: IPRATROPIUM-ALBUTEROL 3 ML NEB INHALATION SCH (12:09)
[2024-11-19] MEDS: ACETAMINOPHEN TAB 325 MG TAB PO PRN (12:14)
[2024-11-19] MEDS ORDERED: DEXTROSE 50% SYRINGE 50 ML IVP PRN ×2 (12:47)
[2024-11-19] MEDS ORDERED: BENZONATATE 100 MG CAP PO PRN (12:50)
--- NOTE | 2024-11-19 12:52 | P.PN ---
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 She presented to the hospital on 11/18/2024 with a chief complaint of shortness of breath and cough. Patient reports the symptoms began approximately 1 week ago and progressively worsened. She states they have been accompanied by intermittent fevers and chills and yellowish/green sputum production with cough. Upon arrival to our facility, patient underwent evaluation in the emergency department. Vital signs upon arrival show blood pressure 145/74, heart rate 113, respiratory rate 26, temp 98.0 F, and SpO2 of 85% on 3 L O2.. EKG completed showing normal sinus rhythm at 85 bpm with no noted T wave or ST abnormality showing no signs of acute ischemia upon personal review and interpretation. Chest x-ray revealing chronic fibrotic changes and a rounded subcentimeter radiodense foci in the right lower lung possibly representing pulmonary nodules, otherwise negative for acute cardiopulmonary process. Labs completed and reviewed. CBC showing elevated neutrophils of 8.62, lymphocytes of 0.80, and 0.11. Coagulation profile normal findings. ABG completed showing pH of 7.43, PCO2 of 55, PaO2 92, bicarb of 36, and total CO2 of 38 with O2 saturation of 97.9%. BMP showing elevated BUN of 20 and blood glucose of 147 otherwise unremarkable. Lactic acid normal findings at 1.4. Magnesium 2.1. Liver profile unremarkable. Patient admitted under our services with consultation to pulmonology .CT chest with contrast showing advanced emphysematous changes and shotty lymph nodes present, but negative for acute process, focal or suspicious lung nodules. Physical exam: Patient was seen and evaluated at bedside this morning. She continues to report shortness of breath and difficulty catching her breath along with recurrent coughing fits. She denies having any headache, lightheadedness, dizziness, chest pain, palpitations, abdominal pain, nausea, vomiting, or experiencing any numbness/tingling/weakness in her extremities Vital signs reviewed and stable. General: Nontoxic, no distress and appears stated age. Derm: Skin warm and dry, normal coloration for ethnicity. Head: Atraumatic, normocephalic and symmetric. Eyes: EOM's intact, no lid lag, and anicteric sclera Mouth: no lip lesions, mucus membranes moist Cardiovascular: regular rate and rhythm with normal S1S2, systolic murmur, positive posterior tibial pulses bilaterally, and cap refill < 2 seconds. Lungs: Respirations even, regular, and unlabored on room air. Lungs diminished with diffuse expiratory wheezes bilaterally, no rhonchi, no rales, no wheezing, and no accessory muscle usage. Abdominal: soft, nontender to palpation, no guarding, no appreciable organomegaly Ext: ROM intact. No gross muscle atrophy, scant lower extremity edema, no contractures Neuro: Speech clear, face symmetrical and CN II-XII grossly intact with no noted focal neuro deficits Psych: Alert and oriented to person, place, time, and situation. Appropriate and pleasant affect. Assessment and Plan of Care: COPD exacerbation Acute on chronic hypoxic and hypercarbic respiratory failure secondary to above History of TB -Chest x-ray revealing chronic fibrotic changes and a rounded subcentimeter radiodense foci in the right lower lung possibly representing pulmonary nodules, otherwise negative for acute cardiopulmonary process. -CT chest with contrast showing advanced emphysematous changes and shotty lymph nodes present, but negative for acute process, focal or suspicious lung nodules. -Consult to Pulmonology, appreciate recommendations -Oxygenation to be administered and titrated as needed to maintain SPO2 equal to or greater than 90% -Telemetry monitoring. -Monitor pulse-oximetry -Duonebs every 4 hours and as needed for SOB and/or wheezing -Incentive Spirometry -Steroids: Solu-Medrol 60 mg IVP every 12 hours -Antibiotics: Empirically treated with azithromycin 500 mg daily x 3 doses currently on day 2 of 3. - Robitussin 200 mg 3 times daily scheduled and as needed Tessalon Perles for cough Hypertension Monitor vital signs and continue daily medication regimen including hydrochlorothiazide 25 mg daily, losartan 100 mg daily, and metoprolol 50 mg daily Hyperglycemia Morning blood glucose 220. Likely secondary to IV steroid administration. Will place patient on glycemic protocol and follow-up on hemoglobin A1c results. 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 Caution with hepatotoxic medications. Data and and imaging reviewed: -Order placed for CT chest with contrast and upon completion and review, showing advanced emphysematous changes and shotty lymph nodes present, but negative for acute process, focal or suspicious lung nodules. -Morning labs reviewed. CBC showing leukocytosis with WBC count of 14.18. BMP showing hypercarbia with bicarb of 33 and mild prerenal azotemia with BUN of 22. Blood glucose elevated at 220. Lactic acid 2.0 -Vital Signs reviewed. Blood pressure 154/76, heart rate 82, respiratory rate 18, temp 98.5 F, and SpO2 of 98% on 3 L. CODE STATUS: Full code DVT prophylaxis: Lovenox Anticipated discharge date: Pending clinical course Anticipated discharge place: Home Patient was seen independently by Nurse Pracitioner. This document was prepared using [employer] dictation software. Please allow for errors in furnace and wash equipment operator, while rare they do occur. Dk Daigle NP rendered care for this patient independently, reviewed the findings and plan as documented in the note above and agree with plan. I did not physically speak with or examine the patient on this date. Objective - Vital Signs Vital signs: Vital Signs Temp 98.5 F 11/19/24 08:28 Pulse 82 11/19/24 08:28 Resp 18 11/19/24 08:28 BP 154/76 11/19/24 08:28 Pulse Ox 98 11/19/24 08:28 FiO2 Intake & Output 11/18/24 11/19/24 11/19/24 18:59 06:59 18:59 Intake Total 400 10 Balance 400 10 Weight 81.647 kg 63.5 kg Intake: IV 10 Invasive Line 1 10 Oral 400 Other: Voiding Method Toilet Toilet # Voids 1 - Labs CBC & Chem 7: 11/19/24 09:24 11/19/24 09:24 Labs: Abnormal Lab Results - Last 24 Hours (Table) 11/18/24 11/18/24 11/19/24 Range/Units 17:07 17:07 07:45 Neutrophils # 8.62 H (1.80-7.70) 10*3/uL Lymphocytes # 0.80 L (0.90-5.00) 10*3/uL Monocytes # 0.11 L (0.20-1.00) 10*3/uL ABG pCO2 55 H (35-45) mmHg ABG HCO3 36 H (21-25) mmol/L ABG Total CO2 38 H (19-24) mmol/L ABG O2 Saturation 97.9 H (94-97) % BUN 20 H (7-17) mg/dL Glucose 147 H (74-99) mg/dL
--- NOTE | 2024-11-19 14:33 | P.CNPUL ---
History of Present Illness Consult date: 11/19/24 Reason for consult: dyspnea, COPD History of present illness: This is a very pleasant 89-year-old female patient with advanced COPD and chronic hypoxic respiratory failure and the patient maintained on Trelegy and prednisone outpatient basis dose of 20 mg p.o. daily. She is coming in with increased shortness of breath and cough and congestion and wheezing. No interval worsening in oxygenation the patient remains on oxygen 3 L with a pulse ox of 99%. CAT scan of the chest was completed and shows upper lobe emphysematous changes bilaterally without any suspicious pulmonary lesions or nodules. Hemodynamically stable. White cell count of 14.1 with a hemoglobin 12.7 and platelet count 385. Electrolytes are all within normal limits. proBNP level is not elevated. The patient is currently on DuoNeb updrafts, Pulmicort Respules, Perforomist nebulized unit twice a day and IV Solu-Medrol 60 mg every 12 hours. She was also started on empiric antibiotic coverage with Zithromax. No altered mentation. No signs of any CO2 narcosis. She has had multiple hospitalization in the past. Exacerbation. She has also had previous history o f pseudomonal tracheobronchitis diagnosed back in October 2023 and the most recent bronchoscopy from August 2024 showed no microbial growth. Review of Systems CONSTITUTIONAL: Denies any recent significant weight loss or weight gain. EYES: Denies change in vision. EARS, NOSE, MOUTH, THROAT: Denies headaches, denies sore throat. CARDIOVASCULAR: Denies chest pain, palpitations or syncopal episodes. RESPIRATORY: See HPI, chronic dyspnea cough and congestion and limitation exe rcise capacity. GASTROINTESTINAL: Denies change in appetite, abdominal pain, nausea and vomiting, or diarrhea GENITOURINARY: Denies hematuria, denies infections. MUSKULOSKELETAL: Denies pain, denies swelling. INTEGUMENTARY: Denies rash, denies eczema. NEUROLOGICAL: Denies recent memory loss, no recent seizure activity. PSYCHIATRIC: Denies anxiety, denies depression. HEMATOLOGIC/LYMPHATIC: Denies anemia, denies enlarged lymph node Past Medical History Past Medical History: COPD, Eye Disorder, Hearing Disorder / Deafness, Hyperlipidemia, Hypertension, Liver Disease, Osteoarthritis (OA), Pneumonia Additional Past Medical History / Comment(s): exacerbation of cough and copd, [place], Hx stomach ulcer, cysts on liver., urinary leakage., small hiatal hernia, diverticulosis, tinnitus , Pneumonia 2019., Oxygen @ 3 L PRN [place] ., environmental allergies, back pain., 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 Last Myocardial Infarction Date:: 40 years ago History of Any Multi-Drug Resistant Organisms: None Reported Past Surgical History: Cholecystectomy, Hysterectomy, Orthopedic Surgery Additional Past Surgical History / Comment(s): KNEE arthroscopy, COLONOSCOPY- LARGE POLYP REMOVED, EGD, cataracts, Right TKA (10/21/21) Past Anesthesia/Blood Transfusion Reactions: No Reported Reaction Additional Past Anesthesia/Blood Transfusion Reaction / Comment(s): No hx blood transfusion. Past Psychological History: No Psychological Hx Reported Additional Psychological History / Comment(s): She is independent, LIVE ALONE IN AN APARTMENT, PATIENT STILL DRIVES Smoking Status: Former smoker Past Alcohol Use History: None Reported Additional Past Alcohol Use History / Comment(s): Started smoking 1964, quit smoking 1989, smoked 1ppd. Past Drug Use History: None Reported Additional Drug Use History / Comment(s): Uses cbd oil occ for arthritic pain - Past Family History Sister(s) Family Medical History: Cancer Additional Family Medical History / Comment(s): #1 sister colon cancer, # 2 sister lung cancer. Father Family Medical History: Cancer Additional Family Medical History / Comment(s): Prostate cancer. Mother Family Medical History: Asthma Additional Family Medical History / Comment(s): Heart problems. Son(s) Additional Family Medical History / Comment(s): SCLERODERMA Medications and Allergies Home Medications Medication Instructions Recorded Confirmed Type Losartan Potassium 100 mg PO DAILY 10/30/14 11/18/24 History hydroCHLOROthiazide [Hydrodiuril] 25 mg PO DAILY #90 tab 09/30/22 11/18/24 Rx Metoprolol Succinate (ER) [Toprol 50 mg PO DAILY 04/25/23 11/18/24 History XL] Albuterol Nebulized [Ventolin 2.5 mg INHALATION RT-QID 05/03/24 11/18/24 History Nebulized] Albuterol Sulfate [Albuterol 2 puff INHALATION RT-Q4H PRN 05/03/24 11/18/24 History Sulfate Hfa] Fluorometholone 0.1% Ophth Sandy 1 drops BOTH EYES TID 11/18/24 11/18/24 History [Fml] predniSONE [Deltasone] 20 mg PO DAILY 11/18/24 11/18/24 History Allergies Allergy/AdvReac Type Severity Reaction Status Date / Time hydrocodone bitartrate AdvReac states Verified 11/18/24 18:24 [From Vicodin] "doesn't make me feel good,I feel high" Physical Exam Vitals: Vital Signs Temp Pulse Pulse Resp BP BP BP 11/19/24 08:28 98.5 F 82 18 154/76 11/19/24 08:19 88 11/19/24 08:06 95 11/19/24 07:45 11/19/24 04:17 97.8 F 90 18 153/78 11/18/24 23:30 97.8 F 86 19 127/75 11/18/24 21:32 98.0 F 89 18 132/86 11/18/24 20:54 98.7 F 82 18 133/74 11/18/24 19:45 88 11/18/24 19:32 88 11/18/24 19:15 98.7 F 88 18 138/64 11/18/24 18:15 84 20 143/81 11/18/24 17:27 88 18 149/83 11/18/24 17:21 84 22 11/18/24 16:55 92 22 11/18/24 16:35 24 11/18/24 16:25 98 F 113 H 26 H 145/74 Pulse Ox 11/19/24 08:28 98 11/19/24 08:19 11/19/24 08:06 11/19/24 07:45 100 11/19/24 04:17 98 11/18/24 23:30 100 11/18/24 21:32 98 11/18/24 20:54 97 11/18/24 19:45 11/18/24 19:32 11/18/24 19:15 99 11/18/24 18:15 97 11/18/24 17:27 97 11/18/24 17:21 11/18/24 16:55 11/18/24 16:35 11/18/24 16:25 85 L Intake and Output 11/18/24 11/19/24 11/19/24 22:59 06:59 14:59 Intake Total 400 250 Balance 400 250 Intake: IV 10 Invasive Line 1 10 Oral 400 240 Other: Voiding Method Toilet Toilet # Voids 1 Weight 81.647 kg 63.5 kg GENERAL EXAM: Alert, 88 year-old -[place] female, comfortable in no apparent distress. Patient currently on 3 L of oxygen nasal cannula HEAD: Normocephalic and atraumatic EYES: Normal reaction of pupils, equal size. NOSE: Clear with pink turbinates. THROAT: No erythema or exudates. NECK: No masses, no JVD. CHEST: No chest wall deformity. LUNGS: Equal air entry with expiratory wheezes heard with forced expiration. No conversational dyspnea or accessory muscle use.. CVS: S1 and S2 normal with no audible murmur, regular rhythm. No extra heart sounds ABDOMEN: No hepatosplenomegaly, active bowel sounds, no guarding or rigidity. SPINE: No scoliosis or deformity SKIN: No rashes CENTRAL NERVOUS SYSTEM: No focal deficits, tone is normal in all 4 extremities. EXTREMITIES: There is no peripheral edema, clubbing, or cyanosis. Peripheral pulses are intact Results - Laboratory Findings CBC and BMP: 11/19/24 09:24 11/19/24 09:24 ABG ABG pH 7.43 (7.35-7.45) 11/19/24 07:45 ABG pCO2 55 mmHg (35-45) H 11/19/24 07:45 ABG pO2 92 mmHg (83-108) 11/19/24 07:45 ABG O2 Saturation 97.9 % (94-97) H 11/19/24 07:45 PT/INR, D-dimer PT 11.3 sec (10.0-12.5) 11/18/24 17:07 INR 1.0 (<1.2) 11/18/24 17:07 Abnormal lab findings: Abnormal Labs 11/18/24 11/18/24 11/19/24 17:07 17:07 07:45 WBC RBC Neutrophils # 8.62 H Lymphocytes # 0.80 L Monocytes # 0.11 L ABG pCO2 55 H ABG HCO3 36 H ABG Total CO2 38 H ABG O2 Saturation 97.9 H Carbon Dioxide BUN 20 H Glucose 147 H 11/19/24 11/19/24 09:24 09:24 WBC 14.18 H RBC 4.05 L Neutrophils # Lymphocytes # Monocytes # ABG pCO2 ABG HCO3 ABG Total CO2 ABG O2 Saturation Carbon Dioxide 33 H BUN 22 H Glucose 220 H - Diagnostic Findings Chest x-ray: image reviewed Assessment and Plan Plan: Acute COPD exacerbationCT scan of the chest shows no acute abnormalities.. Chest x-ray on arrival does not show any focal infiltrates or evidence of pneumonia, there is hyperinflation consistent with COPD. Previous history of pseudomonal tracheobronchitis/pneumonia Chronic hypoxemic respiratory failure, secondary to above, currently on 3 L of oxygen by nasal cannula. Hypertension Hyperlipidemia History of severe oxygen and steroid dependent COPD, normally maintained on Breztri for maintenance, but recently given samples of Trelegy inhaler. Schatzki' ring status/post balloon dilation Remote ex-smoker Acute leukocytosis Plan: Clinically stable Continue bronchodilators Continue IV Solu-Medrol Continue bronchodilators with DuoNeb updrafts Allow the patient to utilize Trelegy Ellipta from home, if not available, the patient can continue combination of Perforomist and Pulmicort nebulized treatments twice a day Empiric antibiotic coverage with Zithromax Titrate oxygen flow to maintain saturation above 90% Long-term prognosis poor. Will continue to follow.
[2024-11-19 16:27] LABS: Glucose,Whole Blood 206 mg/dL (70-110)
[2024-11-19] MEDS: methylPREDNISolone SOD SUCCI 125 MG/2 ML VIAL IV SCH (17:20)
[2024-11-19] MEDS: INSULIN LISPRO (HumaLOG) 100 UNIT/ML 10 mL VL SQ SCH (17:21)
[2024-11-19] MEDS: guaiFENesin SYRUP 100MG/5ML 200 MG/10 ML CUP PO SCH (17:21)
[2024-11-19 20:26] LABS: Glucose,Whole Blood 139 mg/dL (70-110)
[2024-11-19] MEDS: FORMOTEROL FUMARATE 20 MCG/2 ML NEBU INHALATION SCH (20:27)
[2024-11-19] MEDS: ZOLPIDEM 5 MG TAB PO SCH (23:00)
[2024-11-20 03:26] LABS: HCT 39.5 % (37.2-46.3); HGB 12.7 g/dL (12.0-15.0); MCH 31.1 pg (27.0-32.0); MCHC 32.2 g/dL (32.0-37.0); MCV 96.8 fL (80.0-97.0); Mean Platelet Volume 10.2 fL (9.5-12.2); Platelet Count 422 10*3/uL (140-440); RBC 4.08 10*6/uL (4.10-5.20); WBC 24.31 10*3/uL (4.50-10.00)
[2024-11-20 04:13] LABS: African American GFR (CKD) 80 (>60 ml/min/1.73 sqM); Anion Gap 9 mmol/L; Blood Urea Nitrogen 24 mg/dL (7-17); Calcium 10.1 mg/dL (8.4-10.2); Carbon Dioxide 36 mmol/L (22-30); Chloride 95 mmol/L (98-107); Glucose 158 mg/dL (74-99); Magnesium 2.4 mg/dL (1.6-2.3); Non-African American GFR(CKD) 70 (>60 ml/min/1.73 sqM); Potassium 3.7 mmol/L (3.5-5.1); Sodium 140 mmol/L (137-145)
[2024-11-20 06:12] LABS: Glucose,Whole Blood 167 mg/dL (70-110)
[2024-11-20 11:52] LABS: Glucose,Whole Blood 168 mg/dL (70-110)
--- NOTE | 2024-11-20 13:37 | P.PN ---
Subjective Progress Note Date: 11/20/24 This is a very pleasant 89-year-old female patient with advanced COPD and chronic hypoxic respiratory failure and the patient maintained on Trelegy and prednisone outpatient basis dose of 20 mg p.o. daily. She is coming in with increased shortness of breath and cough and congestion and wheezing. No inte rval worsening in oxygenation the patient remains on oxygen 3 L with a pulse ox of 99%. CAT scan of the chest was completed and shows upper lobe emphysematous changes bilaterally without any suspicious pulmonary lesions or nodules. Hemodynamically stable. White cell count of 14.1 with a hemoglobin 12.7 and platelet count 385. Electrolytes are all within normal limits. proBNP level is not elevated. The patient is currently on DuoNeb updrafts, Pulmicort Respules, Perforomist nebulized unit twice a day and IV Solu-Medrol 60 mg every 12 hours. She was also started on empiric antibiotic coverage with Zithromax. No altered mentation. No signs of any CO2 narcosis. She has had multiple hospitalization in the past. Exacerbation. She has also had previous history of pseudomonal tracheobronchitis diagnosed back in October 2023 and the most recent bronchoscopy from August 2024 showed no microbial growth. The patient is seen today November 20, 2024 in follow-up on the regular medical floor. She is currently resting in bed. Awake and alert in no acute distress. Still short of breath with conversation. Short of breath with minimal exertion. Dry nonproductive cough. Maintaining O2 saturations in the 90s on 3 L/min per nasal cannula. She has been afebrile. Hemodynamically stable. Blood cultures revealed no growth. White count 24.3. Hemoglobin 12.7. Platelets 422. Sodium 140. Potassium 3.7. Bicarb 36. BUN 24. Creatinine 0.77. Glucose 158. Hemoglobin A1c 6.6. She remains on DuoNeb inhalations, Pulmicort and Perforomist inhalations, IV Solu-Medrol. Robitussin for her cough. Lovenox for DVT prophylaxis. Objective - Vital Signs Vital signs: Vital Signs Temp 98.0 F 11/20/24 07:36 Pulse 92 11/20/24 12:56 Resp 16 11/20/24 07:36 BP 178/81 11/20/24 07:36 Pulse Ox 98 11/20/24 07:36 FiO2 Intake & Output 11/19/24 11/20/24 11/20/24 18:59 06:59 18:59 Intake Total 740 560 Balance 740 560 Weight 79.2 kg Intake: IV 20 20 Invasive Line 1 10 10 Invasive Line 2 10 10 Oral 720 540 Other: Voiding Method Toilet Toilet # Voids 1 1 - Exam GENERAL EXAM: Alert, active, pleasant 89-year-old female, on 3 L nasal cannula, fairly comfortable in no apparent distress. HEAD: Normocephalic. EYES: Normal reaction of pupils, equal size. NOSE: Clear with pink turbinates. THROAT: No erythema or exudates. NECK: No masses, no JVD. CHEST: No chest wall deformity. LUNGS: Equal air entry with bilateral end expiratory wheeze. CVS: S1 and S2 normal with no audible murmur, regular rhythm. ABDOMEN: No hepatosplenomegaly, normal bowel sounds, no guarding or rigidity. SPINE: No scoliosis or deformity SKIN: No rashes CENTRAL NERVOUS SYSTEM: No focal deficits, tone is normal in all 4 extremities. EXTREMITIES: There is no peripheral edema. No clubbing, no cyanosis. Peripheral pulses are intact. - Labs CBC & Chem 7: 11/20/24 03:01 11/20/24 03:01 Labs: Abnormal Lab Results - Last 24 Hours (Table) 11/19/24 11/19/24 11/20/24 Range/Units 16:25 20:24 03:01 WBC (4.50-10.00) 10*3/uL RBC (4.10-5.20) 10*6/uL Chloride (98-107) mmol/L Carbon Dioxide (22-30) mmol/L BUN (7-17) mg/dL Glucose (74-99) mg/dL POC Glucose (mg/dL) 206 H 139 H (70-110) mg/dL Hemoglobin A1c 6.6 H (<=6.0) % Magnesium (1.6-2.3) mg/dL 11/20/24 11/20/24 11/20/24 Range/Units 03:01 03:01 06:10 WBC 24.31 H (4.50-10.00) 10*3/uL RBC 4.08 L (4.10-5.20) 10*6/uL Chloride 95 L (98-107) mmol/L Carbon Dioxide 36 H (22-30) mmol/L BUN 24 H (7-17) mg/dL Glucose 158 H (74-99) mg/dL POC Glucose (mg/dL) 167 H (70-110) mg/dL Hemoglobin A1c (<=6.0) % Magnesium 2.4 H (1.6-2.3) mg/dL 11/20/24 Range/Units 11:50 WBC (4.50-10.00) 10*3/uL RBC (4.10-5.20) 10*6/uL Chloride (98-107) mmol/L Carbon Dioxide (22-30) mmol/L BUN (7-17) mg/dL Glucose (74-99) mg/dL POC Glucose (mg/dL) 168 H (70-110) mg/dL Hemoglobin A1c (<=6.0) % Magnesium (1.6-2.3) mg/dL Microbiology - Last 24 Hours (Table) 11/18/24 17:07 Blood Culture - Preliminary Blood Assessment and Plan Assessment: Acute COPD exacerbationCT scan of the chest shows no acute abnormalities.. Chest x-ray on arrival does not show any focal infiltrates or evidence of pneumonia, there is hyperinflation consistent with COPD. CT scan of the chest revealed advanced emphysematous changes. No suspicious lung nodules Acute leukocytosis Previous history of pseudomonal tracheobronchitis/pneumonia Chronic hypoxemic respiratory failure, secondary to above, currently on 3 L of oxygen by nasal cannula Hypertension Hyperlipidemia History of severe oxygen and steroid dependent COPD, normally maintained on Breztri for maintenance, but recently given samples of Trelegy inhaler. Schatzki' ring status/post balloon dilation Remote ex-smoker Plan: The patient was seen and evaluated CT scan of the chest, labs and medications reviewed No evidence of pulmonary nodules Check a procalcitonin Stable and on 3 L nasal cannula Continue DuoNeb inhalations Continue Pulmicort and Perforomist inhalations Continue IV Solu-Medrol Titrate the FiO2 as tolerated Increase her activity as tolerated This patient was seen independently by the pulmonary nurse practitioner addressing pulmonary issues I have personally seen and examined the patient, performed the documentation and the assessment and plan as written. Number of minutes spent on the visit: 24 Dictation was produced using [employer] dictation software. Please excuse any grammatical, word or spelling errors.
--- NOTE | 2024-11-20 15:35 | P.PN ---
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 She presented to the hospital on 11/18/2024 with a chief complaint of shortness of breath and cough. Patient reports the symptoms began approximately 1 week ago and progressively worsened. She states they have been accompanied by intermittent fevers and chills and yellowish/green sputum production with cough. Upon arrival to our facility, patient underwent evaluation in the emergency department. Vital signs upon arrival show blood pressure 145/74, heart rate 113, respiratory rate 26, temp 98.0 F, and SpO2 of 85% on 3 L O2.. EKG completed showing normal sinus rhythm at 85 bpm with no noted T wave or ST abnormality showing no signs of acute ischemia upon personal review and interpretation. Chest x-ray revealing chronic fibrotic changes and a rounded subcentimeter radiodense foci in the right lower lung possibly representing pulmonary nodules, otherwise negative for acute cardiopulmonary process. Labs completed and reviewed. CBC showing elevated neutrophils of 8.62, lymphocytes of 0.80, and 0.11. Coagulation profile normal findings. ABG completed showing pH of 7.43, PCO2 of 55, PaO2 92, bicarb of 36, and total CO2 of 38 with O2 saturation of 97.9%. BMP showing elevated BUN of 20 and blood glucose of 147 otherwise unremarkable. Lactic acid normal findings at 1.4. Magnesium 2.1. Liver profile unremarkable. Patient admitted under our services with consultation to pulmonology .CT chest with contrast showing advanced emphysematous changes and shotty lymph nodes present, but negative for acute process, focal or suspicious lung nodules. Physical exam: Patient was seen and evaluated at bedside this morning. She continues to report shortness of breath and worsening coughing fits this morning. She denies having any headache, lightheadedness, dizziness, chest pain, palpitations, abdominal pain, nausea, vomiting, or experiencing any numbness/tingling/weakness in her extremities Vital signs reviewed and stable. General: Nontoxic, no distress and appears stated age. Derm: Skin warm and dry, normal coloration for ethnicity. Head: Atraumatic, normocephalic and symmetric. Eyes: EOM's intact, no lid lag, and anicteric sclera Mouth: no lip lesions, mucus membranes moist Cardiovascular: regular rate and rhythm with normal S1S2, systolic murmur, positive posterior tibial pulses bilaterally, and cap refill < 2 seconds. Lungs: Respirations even, regular, and unlabored on room air. Lungs diminished with diffuse expiratory wheezes bilaterally, no rhonchi, no rales, no wheezing, and no accessory muscle usage. Abdominal: soft, nontender to palpation, no guarding, no appreciable organomegaly Ext: ROM intact. No gross muscle atrophy, scant lower extremity edema, no contractures Neuro: Speech clear, face symmetrical and CN II-XII grossly intact with no noted focal neuro deficits Psych: Alert and oriented to person, place, time, and situation. Appropriate and pleasant affect. Assessment and Plan of Care: COPD exacerbation Acute on chronic hypoxic and hypercarbic respiratory failure secondary to above History of TB -Chest x-ray revealing chronic fibrotic changes and a rounded subcentimeter r adiodense foci in the right lower lung possibly representing pulmonary nodules, otherwise negative for acute cardiopulmonary process. -CT chest with contrast showing advanced emphysematous changes and shotty lymph nodes present, but negative for acute process, focal or suspicious lung nodules. -Consult to Pulmonology, appreciate recommendations -Oxygenation to be administered and titrated as needed to maintain SPO2 equal to or greater than 90% -Telemetry monitoring. -Monitor pulse-oximetry -Duonebs every 4 hours and as needed for SOB and/or wheezing -Incentive Spirometry -Steroids: Solu-Medrol 60 mg IVP Q6 hours -Antibiotics: Empirically treated with azithromycin 500 mg daily x 3 doses curr ently on day 3 of 3. -Robitussin 200 mg 3 times daily scheduled and as needed Testomon Mane for [facility] Hypertension Monitor vital signs and continue daily medication regimen including hydrochlorothiazide 25 mg daily, losartan 100 mg daily, and metoprolol 50 mg daily Hyperglycemia, newly diagnosed type 2 diabetes mellitus with hemoglobin A1c of 6.6% Morning blood glucose 220. Likely secondary to IV steroid administration. Hemoglobin A1c 6.6%. Patient to continue glycemic protocol with Humalog sliding scale. Will plan to discharge home on metformin. 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 Caution with hepatotoxic medications. Data and and imaging reviewed: -Morning labs reviewed. CBC showing leukocytosis with WBC count of 24.31, BMP showing metabolic alkalosis with chloride of 95, bicarb of 36, and anion gap of 9 with mild prerenal azotemia with BUN of 24. Blood glucose 158. Hemoglobin A1c 6.6%. Magnesium 2.4. -Vital Signs reviewed. Blood pressure elevated this morning at 178/81, heart rate 96, respiratory rate 16, temp 98.0 F, and SpO2 of 98% on room air CODE STATUS: Full code DVT prophylaxis: Lovenox Anticipated discharge date: Pending clinical course Anticipated discharge place: Home Patient was seen independently by Nurse Pracitioner. This document was prepared using [employer] dictation software. Please allow for errors in frame polisher, while rare they do occur. Dk Daigle NP rendered care for this patient independently, reviewed the findings and plan as documented in the note above and agree with plan. I did not physically speak with or examine the patient on this date. Objective - Vital Signs Vital signs: Vital Signs Temp 98.0 F 11/20/24 07:36 Pulse 96 11/20/24 09:41 Resp 16 11/20/24 07:36 BP 178/81 11/20/24 07:36 Pulse Ox 98 11/20/24 07:36 FiO2 Intake & Output 11/19/24 11/20/24 11/20/24 18:59 06:59 18:59 Intake Total 740 560 Balance 740 560 Weight 79.2 kg Intake: IV 20 20 Invasive Line 1 10 10 Invasive Line 2 10 10 Oral 720 540 Other: Voiding Method Toilet Toilet # Voids 1 1 - Labs CBC & Chem 7: 11/20/24 03:01 11/20/24 03:01 Labs: Abnormal Lab Results - Last 24 Hours (Table) 11/19/24 11/19/24 11/19/24 Range/Units 09:24 16:25 20:24 WBC (4.50-10.00) 10*3/uL RBC (4.10-5.20) 10*6/uL Chloride (98-107) mmol/L Carbon Dioxide 33 H (22-30) mmol/L BUN 22 H (7-17) mg/dL Glucose 220 H (74-99) mg/dL POC Glucose (mg/dL) 206 H 139 H (70-110) mg/dL Hemoglobin A1c (<=6.0) % Magnesium (1.6-2.3) mg/dL 11/20/24 11/20/24 11/20/24 Range/Units 03:01 03:01 03:01 WBC 24.31 H (4.50-10.00) 10*3/uL RBC 4.08 L (4.10-5.20) 10*6/uL Chloride 95 L (98-107) mmol/L Carbon Dioxide 36 H (22-30) mmol/L BUN 24 H (7-17) mg/dL Glucose 158 H (74-99) mg/dL POC Glucose (mg/dL) (70-110) mg/dL Hemoglobin A1c 6.6 H (<=6.0) % Magnesium 2.4 H (1.6-2.3) mg/dL 11/20/24 Range/Units 06:10 WBC (4.50-10.00) 10*3/uL RBC (4.10-5.20) 10*6/uL Chloride (98-107) mmol/L Carbon Dioxide (22-30) mmol/L BUN (7-17) mg/dL Glucose (74-99) mg/dL POC Glucose (mg/dL) 167 H (70-110) mg/dL Hemoglobin A1c (<=6.0) % Magnesium (1.6-2.3) mg/dL Microbiology - Last 24 Hours (Table) 11/18/24 17:07 Blood Culture - Preliminary Blood
[2024-11-20 16:53] LABS: Glucose,Whole Blood 156 mg/dL (70-110)
[2024-11-20 20:41] LABS: Glucose,Whole Blood 204 mg/dL (70-110)
[2024-11-21 06:34] LABS: Glucose,Whole Blood 175 mg/dL (70-110)
[2024-11-21 08:18] LABS: HGB 12.8 g/dL (12.0-15.0); MCH 31.4 pg (27.0-32.0); Mean Platelet Volume 11.2 FL (9.5-12.2); NRBC Per 100 WBC 0 X 10*3/uL (0.00-0.01); Platelet Count 378 X 10*3/uL (140-440); RBC 4.08 X 10*6/uL (4.10-5.20); RDW 13.2 % (11.5-14.5); WBC 22.28 X 10*3/uL (4.50-10.00)
[2024-11-21 08:45] LABS: Blood Urea Nitrogen 26.8 mg/dL (9.0-27.0); Calcium 9.4 mg/dL (8.7-10.3); Carbon Dioxide 29.9 mmol/L (21.6-31.8); Chloride 97 mmol/L (96-109); Glucose 153 mg/dL (70-110); Magnesium 2.4 mg/dL (1.5-2.4); Potassium 3.9 mmol/L (3.5-5.5); Sodium 139 mmol/L (135-145)
--- NOTE | 2024-11-21 11:12 | P.DS ---
Providers Date of admission: 11/18/24 18:13 Expected date of discharge: 11/21/24 Attending physician: Margarito Gutierrez Consults: 11/18/24 18:13 Consult Physician Routine Consulting Provider: Da Gilbert Consult Reason/Comments: COPD Do you want consulting provider notified?: Yes Primary care physician: Po Winchester MD Hospital Course: Discharge Diagnosis: COPD exacerbation. Patient empirically completed 3-day course of azithromycin. Procalcitonin was negative. She was treated with supplemental oxygen, [id number] nebulizer treatments, and IV steroids. Patient was also followed closely by home aid, stating patient back to baseline respiratory status. Recommending discharge home on prednisone taper with 40 mg daily x 4 days followed by 30 mg daily x 4 days and then patient to resume baseline daily prednisone dose of 20 mg daily. Patient denies needs for refill of home DuoNebs. Patient discharged home on Symbicort inhaler in addition to current home nebulizers. Patient to follow-up outpatient with PCP in 1 to 2 days and with home aid in 1 week. Acute on chronic hypoxic and hypercarbic respiratory failure secondary to above History of TB Hypertension. Monitor vital signs and continue daily medication regimen including hydrochlorothiazide 25 mg daily, losartan 100 mg daily, and metoprolol 50 mg daily Hyperglycemia, newly diagnosed type 2 diabetes mellitus with hemoglobin A1c of 6.6%. Patient discharged home with metformin 500 mg twice daily. Encouraged to continue heart healthy and carb consistent diet. 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 Liver profile unremarkable. Caution with hepatotoxic medications. 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 She presented to the hospital on 11/18/2024 with a chief complaint of shortness of breath and cough. Patient reports the symptoms began approximately 1 week ago and progressively worsened. She states they have been accompanied by intermittent fevers and chills and yellowish/green sputum production with cough. Upon arrival to our facility, patient underwent evaluation in the emergency department. Vital signs upon arrival show blood pressure 145/74, heart rate 113, respiratory rate 26, temp 98.0 F, and SpO2 of 85% on 3 L O2.. EKG completed showing normal sinus rhythm at 85 bpm with no noted T wave or ST abnormality showing no signs of acute ischemia upon personal review and interpretation. Chest x-ray revealing chronic fibrotic changes and a rounded subcentimeter radiodense foci in the right lower lung possibly representing pulmonary nodules, otherwise negative for acute cardiopulmonary process. Labs completed and reviewed. CBC showing elevated neutrophils of 8.62, lymphocytes of 0.80, and 0.11. Coagulation profile normal findings. ABG completed showing pH of 7.43, PCO2 of 55, PaO2 92, bicarb of 36, and total CO2 of 38 with O2 saturation of 97.9%. BMP showing elevated BUN of 20 and blood glucose of 147 otherwise unremarkable. Lactic acid normal findings at 1.4. Magnesium 2.1. Liver profile unremarkable. Patient admitted under our services with consultation to pulmonology .CT chest with contrast showing advanced emphysematous changes and shotty lymph nodes present, but negative for acute process, focal or suspicious lung nodules. Patient empirically completed 3-day course of azithromycin. Procalcitonin was negative. She was treated with supplemental oxygen, [id number] nebulizer treatments, and IV steroids. Patient was also followed closely by home aid, stating patient back to baseline respiratory status. Recommending discharge home on prednisone taper with 40 mg daily x 4 days followed by 30 mg daily x 4 days and then patient to resume baseline daily prednisone dose of 20 mg daily. Patient denies needs for refill of home DuoNebs. Patient discharged home on Symbicort inhaler in addition to current home nebulizers. Patient to follow-up outpatient with PCP in 1 to 2 days and with home aid in 1 week. Physical exam: Patient was seen and evaluated at bedside this morning. She continues to report shortness of breath and worsening coughing fits this morning. She denies having any headache, lightheadedness, dizziness, chest pain, palpitations, abdominal pain, nausea, vomiting, or experiencing any numbness/tingling/weakness in her extremities Vital signs reviewed and stable. General: Nontoxic, no distress and appears stated age. Derm: Skin warm and dry, normal coloration for ethnicity. Head: Atraumatic, normocephalic and symmetric. Eyes: EOM's intact, no lid lag, and anicteric sclera Mouth: no lip lesions, mucus membranes moist Cardiovascular: regular rate and rhythm with normal S1S2, systolic murmur, positive posterior tibial pulses bilaterally, and cap refill < 2 seconds. Lungs: Respirations even, regular, and unlabored on baseline 3 L O2 via nasal cannula. Lungs diminished with diffuse expiratory wheezes bilaterally, no rhonchi, no rales, no wheezing, and no accessory muscle usage. Abdominal: soft, nontender to palpation, no guarding, no appreciable organomegaly Ext: ROM intact. No gross muscle atrophy, scant lower extremity edema, no contractures Neuro: Speech clear, face symmetrical and CN II-XII grossly intact with no noted focal neuro deficits Psych: Alert and oriented to person, place, time, and situation. Appropriate and pleasant affect. A total of 34 minutes of time were spent preparing this complex discharge summary. Pt was discharged on 11/21/2024 at 10:59 AM. Patient was seen independently by Nurse Practitioner. This document was prepared using [employer] dictation software. Please allow for errors in psychology fellow while rare they do occur. Dk Daigle NP rendered care for this patient independently, reviewed the findings and plan as documented in the note above. I did not physically speak with or examine the patient on this date. Patient Condition at Discharge: Stable Plan - Discharge Summary Discharge Rx Participant: Yes New Discharge Prescriptions: New predniSONE See Rx Instructions .ROUTE .COMPLEX 8 Days #28 tab Budesonide-Formot 160-4.5 Mcg [Symbicort 160-4.5 Mcg Inhaler] 2 puff INHALATION BID 30 Days #1 inh metFORMIN HCL [Glucophage] 500 mg PO BID 30 Days #60 tab Continue Losartan Potassium 100 mg PO DAILY Albuterol Sulfate [Albuterol Sulfate Hfa] 2 puff INHALATION RT-Q4H PRN PRN Reason: Shortness Of Breath Albuterol Nebulized [Ventolin Nebulized] 2.5 mg INHALATION RT-QID hydroCHLOROthiazide [Hydrodiuril] 25 mg PO DAILY #90 tab Metoprolol Succinate (ER) [Toprol XL] 50 mg PO DAILY predniSONE [Deltasone] 20 mg PO DAILY Fluorometholone 0.1% Ophth Sandy [Fml] 1 drops BOTH EYES TID Discharge Medication List Losartan Potassium 100 mg PO DAILY 10/30/14 [History] hydroCHLOROthiazide [Hydrodiuril] 25 mg PO DAILY #90 tab 09/30/22 [Rx] Metoprolol Succinate (ER) [Toprol XL] 50 mg PO DAILY 04/25/23 [History] Albuterol Nebulized [Ventolin Nebulized] 2.5 mg INHALATION RT-QID 05/03/24 [History] Albuterol Sulfate [Albuterol Sulfate Hfa] 2 puff INHALATION RT-Q4H PRN 05/03/24 [History] Fluorometholone 0.1% Ophth Sandy [Fml] 1 drops BOTH EYES TID 11/18/24 [History] predniSONE [Deltasone] 20 mg PO DAILY 11/18/24 [History] Budesonide-Formot 160-4.5 Mcg [Symbicort 160-4.5 Mcg Inhaler] 2 puff INHALATION BID 30 Days #1 inh 11/21/24 [Rx] metFORMIN HCL [Glucophage] 500 mg PO BID 30 Days #60 tab 11/21/24 [Rx] predniSONE See Rx Instructions .ROUTE .COMPLEX 8 Days #28 tab 11/21/24 [Rx] Follow up Appointment(s)/Referral(s): Nonstaff,Physician [REFERRING] - 1-2 days Da Gilbert MD [STAFF PHYSICIAN] - 11/23/24 9:00 am Patient Instructions/Handouts: Type 2 Diabetes in Adults: New Diagnosis (DC), COPD (Chronic Obstructive Pulmonary Disease) (DC) Activity/Diet/Wound Care/Special Instructions: Activity: As tolerated. Take breaks as needed. Diet: Heart healthy and carb consistent diet.. Special Instructions: Take all of your medications as directed and remember to keep all of your doctor's appointments and follow-up as needed. You are being discharged home on a prednisone taper with prednisone 10 mg tablets. It is prescribed to take 4 tablets (40 mg) daily x 4 days, then 3 tablets (30 mg) daily x 4 days, then you will resume your baseline home medication regimen with prednisone 20 mg daily that was previously prescribed to you by your home aid Thank you for allowing us to participate in your care, it was truly a pleasure having you for our patient!!! Discharge Disposition: HOME SELF-CARE
--- NOTE | 2024-11-21 11:29 | P.PN ---
Subjective Progress Note Date: 11/21/24 This is a very pleasant 89-year-old female patient with advanced COPD and chronic hypoxic respiratory failure and the patient maintained on Trelegy and prednisone outpatient basis dose of 20 mg p.o. daily. She is coming in with increased shortness of breath and cough and congestion and wheezing. No inte rval worsening in oxygenation the patient remains on oxygen 3 L with a pulse ox of 99%. CAT scan of the chest was completed and shows upper lobe emphysematous changes bilaterally without any suspicious pulmonary lesions or nodules. Hemodynamically stable. White cell count of 14.1 with a hemoglobin 12.7 and platelet count 385. Electrolytes are all within normal limits. proBNP level is not elevated. The patient is currently on DuoNeb updrafts, Pulmicort Respules, Perforomist nebulized unit twice a day and IV Solu-Medrol 60 mg every 12 hours. She was also started on empiric antibiotic coverage with Zithromax. No altered mentation. No signs of any CO2 narcosis. She has had multiple hospitalization in the past. Exacerbation. She has also had previous history of pseudomonal tracheobronchitis diagnosed back in October 2023 and the most recent bronchoscopy from August 2024 showed no microbial growth. The patient is seen today November 20, 2024 in follow-up on the regular medical floor. She is currently resting in bed. Awake and alert in no acute distress. Still short of breath with conversation. Short of breath with minimal exertion. Dry nonproductive cough. Maintaining O2 saturations in the 90s on 3 L/min per nasal cannula. She has been afebrile. Hemodynamically stable. Blood cultures revealed no growth. White count 24.3. Hemoglobin 12.7. Platelets 422. Sodium 140. Potassium 3.7. Bicarb 36. BUN 24. Creatinine 0.77. Glucose 158. Hemoglobin A1c 6.6. She remains on DuoNeb inhalations, Pulmicort and Perforomist inhalations, IV Solu-Medrol. Robitussin for her cough. Lovenox for DVT prophylaxis. The patient is seen today November 21, 2024 in follow-up on the regular medical floor. She is awake and alert in no acute distress. Feeling better today. Feeling back to her baseline. No worsening shortness of breath, cough or congestion. She is maintaining good O2 saturations in the 90s on 3 L/min per nasal cannula. She has been afebrile. Hemodynamically stable. Blood culture revealed no growth. White count 22.2. Hemoglobin 12.8. Platelets 378. Sodium 139. Potassium 3.9. Bicarb 30. BUN 27. Creatinine 1.0. Glucose 153. She remains on DuoNeb inhalations, Pulmicort and Perforomist inhalations, Solu- Medrol. Lovenox for DVT prophylaxis. Tessalon Perles and Robitussin for her cough as needed. Objective - Vital Signs Vital signs: Vital Signs Temp 98.3 F 11/21/24 07:20 Pulse 92 11/21/24 09:40 Resp 22 11/21/24 07:20 BP 166/98 11/21/24 07:20 Pulse Ox 99 11/21/24 07:20 FiO2 Intake & Output 11/20/24 11/21/24 11/21/24 18:59 06:59 18:59 Intake Total 240 Balance 240 Weight 94.5 kg Intake: Oral 240 Other: Voiding Method Toilet # Voids 2 2 - Exam GENERAL EXAM: Alert, pleasant 89-year-old female, on 3 L nasal cannula, comfortable in no apparent distress. HEAD: Normocephalic. EYES: Normal reaction of pupils, equal size. NOSE: Clear with pink turbinates. THROAT: No erythema or exudates. NECK: No masses, no JVD. CHEST: No chest wall deformity. LUNGS: Equal air entry with faint bilateral end expiratory wheeze. CVS: S1 and S2 normal with no audible murmur, regular rhythm. ABDOMEN: No hepatosplenomegaly, normal bowel sounds, no guarding or rigidity. SPINE: No scoliosis or deformity SKIN: No rashes CENTRAL NERVOUS SYSTEM: No focal deficits, tone is normal in all 4 extremities. EXTREMITIES: There is no peripheral edema. No clubbing, no cyanosis. Peripheral pulses are intact. - Labs CBC & Chem 7: 11/21/24 03:02 11/21/24 03:02 Labs: Abnormal Lab Results - Last 24 Hours (Table) 11/20/24 11/20/24 11/20/24 Range/Units 11:50 16:51 20:39 WBC (4.50-10.00) X 10*3/uL RBC (4.10-5.20) X 10*6/uL MCV (80.0-97.0) FL Anion Gap (4.00-12.00) mmol/L Est GFR (CKD-EPI) (>=60) BUN/Creatinine Ratio (12.00-20.00) Ratio Glucose (70-110) mg/dL POC Glucose (mg/dL) 168 H 156 H 204 H (70-110) mg/dL 11/21/24 11/21/24 11/21/24 Range/Units 03:02 03:02 06:32 WBC 22.28 H (4.50-10.00) X 10*3/uL RBC 4.08 L (4.10-5.20) X 10*6/uL MCV 98.0 H (80.0-97.0) FL Anion Gap 12.10 H (4.00-12.00) mmol/L Est GFR (CKD-EPI) 55 L (>=60) BUN/Creatinine Ratio 26.80 H (12.00-20.00) Ratio Glucose 153 H (70-110) mg/dL POC Glucose (mg/dL) 175 H (70-110) mg/dL Microbiology - Last 24 Hours (Table) 11/18/24 17:07 Blood Culture - Preliminary Blood Assessment and Plan Assessment: Acute COPD exacerbationCT scan of the chest shows no acute abnormalities.. Chest x-ray on arrival does not show any focal infiltrates or evidence of pneumonia, there is hyperinflation consistent with COPD. CT scan of the chest revealed advanced emphysematous changes. No suspicious lung nodules Acute leukocytosis Previous history of pseudomonal tracheobronchitis/pneumonia Chronic hypoxemic respiratory failure, secondary to above, currently on 3 L of oxygen by nasal cannula Hypertension Hyperlipidemia History of severe oxygen and steroid dependent COPD, normally maintained on Breztri for maintenance, but recently given samples of Trelegy inhaler. Schatzki' ring status/post balloon dilation Remote ex-smoker Plan: The patient was seen and evaluated Labs and medications reviewed Procalcitonin negative Feeling back to her baseline Cleared for discharge Recommend Symbicort Continue albuterol HFA Albuterol nebulized treatments as needed Complete a prednisone taper down to her normal 20 mg daily Patient does have home oxygen Follow-up in our office in 1 week This patient was seen independently by the pulmonary nurse practitioner addressing pulmonary issues I have personally seen and examined the patient, performed the documentation and the assessment and plan as written. Number of minutes spent on the visit: 23 Dictation was produced using [employer] dictation software. Please excuse any grammatical, word or spelling errors.
[2024-11-21 11:32] LABS: Glucose,Whole Blood 236 mg/dL (70-110)
[2024-11-21 14:34] VITALS: BP 157/78; PULSE 81; RESP 20; TEMP 98.2
== END 2024-11-21 15:08 | disposition home or self-care (01) | DRG 190 ==
LOC: EC 16:24 → 3SCARD 18:13 → 4SSUR 11-19 23:11
PROVIDERS: ADMIT Student in an Organized Health Care Education/Training Program; ATTEND Student in an Organized Health Care Education/Training Program
DX: J44.1 Chronic obstructive pulmonary disease with (acute) exacerbation (principal); J96.21 Acute and chronic respiratory failure with hypoxia; J96.22 Acute and chronic respiratory failure with hypercapnia; E87.3 Alkalosis; D72.829 Elevated white blood cell count, unspecified; E78.5 Hyperlipidemia, unspecified; E11.65 Type 2 diabetes mellitus with hyperglycemia; I10 Essential (primary) hypertension; K76.89 Other specified diseases of liver; T38.0X5A Adverse effect of glucocorticoids and synthetic analogues, initial encounter; H91.90 Unspecified hearing loss, unspecified ear; Z87.891 Personal history of nicotine dependence; Z79.51 Long term (current) use of inhaled steroids; Z79.52 Long term (current) use of systemic steroids; Z79.84 Long term (current) use of oral hypoglycemic drugs; Z79.899 Other long term (current) drug therapy; Z86.11 Personal history of tuberculosis; Z87.01 Personal history of pneumonia (recurrent); Z87.11 Personal history of peptic ulcer disease; Z90.710 Acquired absence of both cervix and uterus; I25.2 Old myocardial infarction; Z88.5 Allergy status to narcotic agent; Z87.19 Personal history of other diseases of the digestive system; X58.XXXA Exposure to other specified factors, initial encounter; Z90.49 Acquired absence of other specified parts of digestive tract; M19.90 Unspecified osteoarthritis, unspecified site; Z96.651 Presence of right artificial knee joint; Z99.81 Dependence on supplemental oxygen
CPT/HCPCS: 36415; 36600; 71045; 71260; 80048; 80053; 82805; 83036; 83605; 83735; 83880; 84145; 85025; 85027; 85610; 85730; 87040; 93005; 94640; 94760; 96361; 96365; 96375; 99291

== ENCOUNTER 2024-12-13 23:32 | Inpatient (IN) | payer MEDICARE, BC ==
--- NOTE | 2024-12-13 23:48 | ED ---
General Adult HPI - General Source: patient, EMS Mode of arrival: wheelchair Limitations: no limitations <Karissa Viramontes - Last Filed: 12/13/24 23:46> <Caitlin Capps - Last Filed: 12/14/24 07:00> - General Stated complaint: Asthma Exacerbation Time Seen by Provider: 12/13/24 23:46 - History of Present Illness Initial comments: Quick note: 89-year-old female presenting with chief complaint of shortness of breath. History of asthma. States she was using inhalers and nebulizers at home but this was not helping. She admits to cough. No chest pain. Patient normally wears 3 L of home O2, she is currently on 4 L. (Karissa Viramontes) Patient is an 89-year-old female with past medical history of COPD on home 3 L presenting today for shortness of breath. Patient states it is about been ongoing for last 3 days. Endorses cough with clear sputum. Denies hemoptysis. Denies chills, states she felt very hot today but did not measure any fevers. Denies any chest pain or lower extremity swelling. Endorses crampy abdominal pain, stating that she had a medication change recently by her lip of shank cutter that has caused her to have multiple loose stools. Has used multiple home nebulizer without improvement in symptoms. (Caitlin Capps) - Related Data Home Medications Medication Instructions Recorded Confirmed Losartan Potassium 100 mg PO DAILY 10/30/14 11/18/24 Metoprolol Succinate (ER) [Toprol 50 mg PO DAILY 04/25/23 11/18/24 XL] Albuterol Nebulized [Ventolin 2.5 mg INHALATION RT-QID 05/03/24 11/18/24 Nebulized] Albuterol Sulfate [Albuterol 2 puff INHALATION RT-Q4H PRN 05/03/24 11/18/24 Sulfate Hfa] Fluorometholone 0.1% Ophth Sandy 1 drops BOTH EYES TID 11/18/24 11/18/24 [Fml] predniSONE [Deltasone] 20 mg PO DAILY 11/18/24 11/18/24 Previous Rx's Medication Instructions Recorded hydroCHLOROthiazide [Hydrodiuril] 25 mg PO DAILY #90 tab 09/30/22 Budesonide-Formot 160-4.5 Mcg 2 puff INHALATION BID 30 Days #1 11/21/24 [Symbicort 160-4.5 Mcg Inhaler] inh metFORMIN HCL [Glucophage] 500 mg PO BID 30 Days #60 tab 11/21/24 predniSONE See Rx Instructions .ROUTE 11/21/24 .COMPLEX 8 Days #28 tab Allergies Allergy/AdvReac Type Severity Reaction Status Date / Time hydrocodone bitartrate AdvReac states Verified 12/13/24 23:46 [From Vicodin] "doesn't make me feel good,I feel high" Review of Systems ROS Other: All systems not noted in ROS Statement are negative. <Karissa Viramontes - Last Filed: 12/13/24 23:46> ROS Other: All systems not noted in ROS Statement are negative. <Caitlin Capps - Last Filed: 12/14/24 07:00> ROS Statement: Those systems with pertinent positive or pertinent negative responses have been documented in the HPI. 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 Last Myocardial Infarction Date:: 40 years ago History of Any Multi-Drug Resistant Organisms: None Reported Past Surgical History: Cholecystectomy, Hysterectomy, Orthopedic Surgery Additional Past Surgical History / Comment(s): KNEE arthroscopy, COLONOSCOPY- LARGE POLYP REMOVED, EGD, cataracts, Right TKA (10/21/21) Past Anesthesia/Blood Transfusion Reactions: No Reported Reaction Additional Past Anesthesia/Blood Transfusion Reaction / Comment(s): No hx blood transfusion. Past Psychological History: No Psychological Hx Reported Additional Psychological History / Comment(s): She is independent, LIVE ALONE IN AN APARTMENT, PATIENT STILL DRIVES Smoking Status: Former smoker Past Alcohol Use History: None Reported Additional Past Alcohol Use History / Comment(s): Started smoking 1964, quit smoking 1989, smoked 1ppd. Past Drug Use History: None Reported Additional Drug Use History / Comment(s): Uses cbd oil occ for arthritic pain - Past Family History Sister(s) Family Medical History: Cancer Additional Family Medical History / Comment(s): #1 sister colon cancer, # 2 sister lung cancer. Father Family Medical History: Cancer Additional Family Medical History / Comment(s): Prostate cancer. Mother Family Medical History: Asthma Additional Family Medical History / Comment(s): Heart problems. Son(s) Additional Family Medical History / Comment(s): SCLERODERMA <Karissa Viramontes - Last Filed: 12/13/24 23:46> General Exam <Karissa Viramontes - Last Filed: 12/13/24 23:46> <Caitlin Capps - Last Filed: 12/14/24 07:00> - General Exam Comments Initial Comments: Visual Physical Exam Vital signs reviewed General: Well-appearing, nontoxic, no acute distress. Head: Normocephalic, atraumatic Eyes: PERRLA, EOMI ENT: Airway patent Chest: Nonlabored breathing Skin: No visual rash, normal skin tone Neuro: Alert and oriented 3 Musculoskeletal: No gross abnormalities (Karissa Viramontes) PE: CONSTITUTIONAL: No apparent distress, chronically ill-appearing, nontoxic SKIN: Warm, dry, no jaundice, hives or petechiae EYES: Pupils are equally round, extraocular movements intact without nystagmus, clear conjunctiva, non-icteric sclera HENT: Normocephalic, atraumatic, moist mucus membranes, oropharynx clear without exudates NECK: , Full range of motion, normal appearance PULMONARY: Tachypneic, no accessory muscle use, coarse breath sounds and wheezes throughout bilateral lung dutta, no rhonchi or rales, no fiberglass boat maker muscle use or stridor CARDIOVASCULAR: Tachycardia, regular rate, rhythm, normal S1 and S2. No appreciated murmurs, rubs or gallops. Strong radial pulses with intact distal perfusion. No lower extremity edema GASTROINTESTINAL: Soft, active bowel sounds throughout, non-tender, non-distended, no palpable masses, no rebound or guarding. No hepatosplenomegaly MUSCULOSKELETAL: Extremities have no gross deformity, no edema, redness, or swelling. No calf swelling NEUROLOGIC:_a/o x 3, GCS 15, normal mentation and speech. Moves all extremities x 4 without motor or sensory deficit PSYCHIATRIC:_normal mood and affect, thought process is clear and linear (Caitlin Capps) Course Vital Signs 12/13/24 12/14/24 12/14/24 23:42 00:25 01:02 Temperature 98.3 F Pulse Rate 120 H 98 98 Respiratory 22 26 H Rate Blood Pressure 168/73 161/80 O2 Sat by Pulse 97 96 Oximetry 12/14/24 12/14/24 12/14/24 01:12 01:13 03:43 Temperature Pulse Rate 100 100 97 Respiratory 24 16 Rate Blood Pressure 133/58 140/72 O2 Sat by Pulse 100 98 Oximetry 12/14/24 12/14/24 12/14/24 06:23 06:41 06:51 Temperature Pulse Rate 100 94 94 Respiratory 18 Rate Blood Pressure O2 Sat by Pulse 96 Oximetry EKG Findings - EKG Comments: EKG Findings:: Sinus tachycardia with respiratory variation, intervals within acceptable limits, no significant ST elevations or depressions <Caitlin Capps - Last Filed: 12/14/24 07:00> Medical Decision Making <Karissa Viramotnes - Last Filed: 12/13/24 23:46> - Lab Data Result diagrams: 12/14/24 00:25 12/14/24 00:25 <Caitlin Capps - Last Filed: 12/14/24 07:00> - Medical Decision Making I performed the quick note portion of this visit, electronically signed Karissa Viramontes PA-C (Karissa Viramontes) Was pt. sent in by a medical professional or institution ([facility], VESSEL SCRAPPER, urgent care, hospital, or residential...) When possible be specific @ -No Did you speak to anyone other than the patient for history (EMS, parent, family, police, friend...)? What history was obtained from this source @ -No Did you review nursing and triage notes (agree or disagree)? Why? @ -I reviewed nursing and triage notes Were old charts reviewed (outside hosp., previous admission, EMS record, old EKG, old radiological studies, urgent care reports/EKG's, residential records)? Report findings @ -Medical records reviewed-reviewed CT chest with contrast on 11/19/2024, showed no suspicious nodules Differential Diagnosis (chest pain, altered mental status, abdominal pain women, abdominal pain men, vaginal bleeding, weakness, fever, dyspnea, syncope, headache, dizziness, GI bleed, back pain, seizure, CVA, palpatations, mental health, musculoskeletal)? @Differential Dyspnea: Coronary syndrome, arrhythmia, tamponade, asthma, COPD, pulmonary embolism, pneumonia, pneumothorax, pulmonary effusion, anaphylaxis, diabetic ketoacidosis, flailed chest, pulmonary contusion, diaphragmatic rupture, anemia, neuromuscular, this is not meant to be an all-inclusive list. EKG interpreted by me (3pts min.). @ -As above X-rays interpreted by me (1pt min.). @Personally viewed chest x-ray see no gross consolidations, cardiomegaly, pleural effusions I agree with radiologist interpretation CT interpreted by me (1pt min.). @ -None done U/S interpreted by me (1pt. min.). @ -None done What testing was considered but not performed or refused? (CT, X-rays, U/S, labs)? Why? @ -None What meds were considered but not given or refused? Why? @ -None Did you discuss the management of the patient with other professionals (professionals i.e. , PA, VESSEL SCRAPPER, lab, RT, psych nurse, director of social media marketing, area intelligence technician, teacher, motor equipment commanding officer, pillowcase cleaner)? Give summary @ -No Was smoking cessation discussed for >3mins.? @ -No Was critical care preformed (if so, how long)? @ -Yes, 35 minutes Were there social determinants of health that impacted care today? How? (Homelessness, low income, unemployed, alcoholism, drug addiction, transportation, low edu. Level, literacy, decrease access to med. care, [place] [facility], rehab)? @ -No Was there de-escalation of care discussed even if they declined (Discuss DNR or withdrawal of care, Hospice)? @ -No What co-morbidities impacted this encounter? (DM, HTN, Smoking, COPD, CAD, Cancer, CVA, ARF, Chemo, Hep., AIDS, mental health diagnosis, sleep apnea, morbid obesity)? @ -COPD, asthma Was patient admitted / discharged? Hospital course, mention meds given and route, prescriptions, significant lab abnormalities, going to OR and other pertinent info. @Admission-This is an 89-year-old female presenting today for difficulty in breathing, states feels like COPD exacerbation. Patient presents on 4 L oxygen nasal cannula. Was given a DuoNeb by paramedics. Patient was turned down to 3L NC w/ mildly increased work of breathing/tachypnea though no hypoxia. Patient has diffuse wheezes throughout all lung dutta with some coarse breath sounds bilaterally. No lower extremity edema. Discussed with patient plan for nebulizers, steroids, chest x-ray and labs. Anticipate admission due to severity of COPD exacerbation. Patient received [id number] nebulizer treatments, reassessment she is sleeping comfortably, respirations unlabored, no longer tachycardic. Pulse ox 100% on 3 L. Some diminished breath sounds in the lung bases though air movement has improved. As patient is currently sleeping will refrain from additional nebulizer treatments at this point. Plan to admit for COPD exacerbation. Undiagnosed new problem with uncertain prognosis? @ -No Drug Therapy requiring intensive monitoring for toxicity (Heparin, Nitro, Insulin, Cardizem)? @ -No Were any procedures done? @ -No Diagnosis/symptom? @COPD exacerbation Acute, or Chronic, or Acute on Chronic? @Acute Uncomplicated (without systemic symptoms) or Complicated (systemic symptoms)? @Complicated Side effects of treatment? @ -No Exacerbation, Progression, or Severe Exacerbation? @Exacerbation Poses a threat to life or bodily function? How? (Chest pain, [place], [place], pneumonia, PE, COPD, DKA, ARF, appy, cholecystitis, CVA, Diverticulitis, Homicidal, Suicidal, threat to staff... and all critical care pts) @ -Yes (Caitlin Capps) - Lab Data Lab Results 12/14/24 12/14/24 12/14/24 Range/Units 00:25 00:25 00:25 WBC 11.82 H (4.50-10.00) 10*3/uL RBC 4.10 (4.10-5.20) 10*6/uL Hgb 12.8 (12.0-15.0) g/dL Hct 38.7 (37.2-46.3) % MCV 94.4 (80.0-97.0) fL MCH 31.2 (27.0-32.0) pg MCHC 33.1 (32.0-37.0) g/dL Plt Count 338 (140-440) 10*3/uL MPV 10.6 (9.5-12.2) fL Immature Gran % (Auto) 0.5 % Neutrophils % 65.9 % Lymphocytes % 17.3 % Monocytes % 7.1 % Eosinophils % 8.6 % Basophils % 0.6 % Immature Gran # 0.06 H (0.00-0.04) 10*3/uL Neutrophils # 7.79 H (1.80-7.70) 10*3/uL Lymphocytes # 2.04 (0.90-5.00) 10*3/uL Monocytes # 0.84 (0.20-1.00) 10*3/uL Eosinophils # 1.02 H (0.04-0.35) 10*3/uL Basophils # 0.07 (0.00-0.10) 10*3/uL PT 10.2 (10.0-12.5) sec INR 0.9 (<1.2) APTT 23.6 (22.0-30.0) sec Sodium 137 (137-145) mmol/L Potassium 4.0 (3.5-5.1) mmol/L Chloride 99 (98-107) mmol/L Carbon Dioxide 32 H (22-30) mmol/L Anion Gap 6 mmol/L BUN 16 (7-17) mg/dL Creatinine 0.61 (0.52-1.04) mg/dL Est GFR (CKD-EPI)AfAm >90 (>60 ml/min/1.73 sqM) Est GFR (CKD-EPI)NonAf 82 (>60 ml/min/1.73 sqM) Glucose 110 H (74-99) mg/dL Calcium 9.5 (8.4-10.2) mg/dL Magnesium 1.9 (1.6-2.3) mg/dL Total Bilirubin 0.8 (0.2-1.3) mg/dL AST 36 (14-36) U/L ALT 17 (4-34) U/L Alkaline Phosphatase 52 (38-126) U/L Troponin I (0.000-0.034) ng/mL NT-Pro-B Natriuret Pep 78 pg/mL Total Protein 6.4 (6.3-8.2) g/dL Albumin 3.8 (3.5-5.0) g/dL Influenza Type A (PCR) (Not Detectd) Influenza Type B (PCR) (Not Detectd) RSV (PCR) (Not Detectd) SARS-CoV-2 (PCR) (Not Detectd) 12/14/24 12/14/24 Range/Units 00:25 00:25 WBC (4.50-10.00) 10*3/uL RBC (4.10-5.20) 10*6/uL Hgb (12.0-15.0) g/dL Hct (37.2-46.3) % MCV (80.0-97.0) fL MCH (27.0-32.0) pg MCHC (32.0-37.0) g/dL Plt Count (140-440) 10*3/uL MPV (9.5-12.2) fL Immature Gran % (Auto) % Neutrophils % % Lymphocytes % % Monocytes % % Eosinophils % % Basophils % % Immature Gran # (0.00-0.04) 10*3/uL Neutrophils # (1.80-7.70) 10*3/uL Lymphocytes # (0.90-5.00) 10*3/uL Monocytes # (0.20-1.00) 10*3/uL Eosinophils # (0.04-0.35) 10*3/uL Basophils # (0.00-0.10) 10*3/uL PT (10.0-12.5) sec INR (<1.2) APTT (22.0-30.0) sec Sodium (137-145) mmol/L Potassium (3.5-5.1) mmol/L Chloride (98-107) mmol/L Carbon Dioxide (22-30) mmol/L Anion Gap mmol/L BUN (7-17) mg/dL Creatinine (0.52-1.04) mg/dL Est GFR (CKD-EPI)AfAm (>60 ml/min/1.73 sqM) Est GFR (CKD-EPI)NonAf (>60 ml/min/1.73 sqM) Glucose (74-99) mg/dL Calcium (8.4-10.2) mg/dL Magnesium (1.6-2.3) mg/dL Total Bilirubin (0.2-1.3) mg/dL AST (14-36) U/L ALT (4-34) U/L Alkaline Phosphatase (38-126) U/L Troponin I 0.019 (0.000-0.034) ng/mL NT-Pro-B Natriuret Pep pg/mL Total Protein (6.3-8.2) g/dL Albumin (3.5-5.0) g/dL Influenza Type A (PCR) Not Detected (Not Detectd) Influenza Type B (PCR) Not Detected (Not Detectd) RSV (PCR) Not Detected (Not Detectd) SARS-CoV-2 (PCR) Not Detected (Not Detectd) Disposition <Karissa Viramontes - Last Filed: 12/13/24 23:46> <Caitlin Capps - Last Filed: 12/14/24 07:00> Clinical Impression: Acute on chronic hypoxic respiratory failure, COPD exacerbation Disposition: ADMITTED IP TO THIS HOSP Condition: Stable
[2024-12-14 00:43] LABS: Basophils # (A) 0.07 10*3/uL (0.00-0.10); Basophils % (A) 0.6 %; Eosinophils # (A) 1.02 10*3/uL (0.04-0.35); Eosinophils % (A) 8.6 %; HCT 38.7 % (37.2-46.3); HGB 12.8 g/dL (12.0-15.0); Lymphocytes # (A) 2.04 10*3/uL (0.90-5.00); Lymphocytes % (A) 17.3 %; MCH 31.2 pg (27.0-32.0); MCHC 33.1 g/dL (32.0-37.0); MCV 94.4 fL (80.0-97.0); Monocytes # (A) 0.84 10*3/uL (0.20-1.00); Monocytes % (A) 7.1 %; Neutrophils # (A) 7.79 10*3/uL (1.80-7.70); Neutrophils % (A) 65.9 %; Platelet Count 338 10*3/uL (140-440); RBC 4.10 10*6/uL (4.10-5.20); RDW 13.2 % (11.5-14.5); WBC 11.82 10*3/uL (4.50-10.00)
[2024-12-14] MEDS: IPRATROPIUM 0.5 MG/2.5 ML NEBU INHALATION STA ×2 (00:59→01:15)
[2024-12-14] MEDS: ALBUTEROL NEBULIZED 2.5 MG/3 ML INHALATION SCH (01:00)
[2024-12-14] MEDS: cefTRIAXone IN SWFI 1,000 MG/10 ML SYRINGE IVP STA (01:15)
[2024-12-14] MEDS: methylPREDNISolone SOD SUCCI 125 MG/2 ML VIAL IV STA (01:17)
[2024-12-14] MEDS: AZITHROMYCIN 500 MG in SODIUM CHLORIDE 0.9% 250 ML IVPB STA (01:18)
[2024-12-14 01:25] LABS: INR 0.9 (<1.2); Partial Thromboplastin Time 23.6 sec (22.0-30.0); Prothrombin Time 10.2 sec (10.0-12.5)
[2024-12-14 01:32] LABS: RSV Not Detected (Not Detectd)
[2024-12-14 01:39] LABS: ALT 17 U/L (4-34); African American GFR (CKD) >90 (>60 ml/min/1.73 sqM); Anion Gap 6 mmol/L; Blood Urea Nitrogen 16 mg/dL (7-17); Calcium 9.5 mg/dL (8.4-10.2); Carbon Dioxide 32 mmol/L (22-30); Chloride 99 mmol/L (98-107); Glucose 110 mg/dL (74-99); Non-African American GFR(CKD) 82 (>60 ml/min/1.73 sqM); Sodium 137 mmol/L (137-145)
[2024-12-14] MEDS: ONDANSETRON 4 MG/2 ML VIAL IVP STA (01:39)
[2024-12-14 01:47] LABS: NT-Pro-B-Type Natriuretic Pept 78 pg/mL
[2024-12-14 01:58] LABS: AST 36 U/L (14-36); Albumin 3.8 g/dL (3.5-5.0); Alkaline Phosphatase 52 U/L (38-126); Magnesium 1.9 mg/dL (1.6-2.3); Potassium 4.0 mmol/L (3.5-5.1); Total Protein 6.4 g/dL (6.3-8.2)
--- NOTE | 2024-12-14 02:08 | XR ---
EXAM: XR Chest, 2 Views CLINICAL HISTORY: to ER via EMS for [place], hx of asthma, took inhaler and duoneb with no relief. wears 3L O2 at home. Arrives on 4L: difficulty breathing TECHNIQUE: Frontal and lateral views of the chest. COMPARISON: CT chest from 11/19/2024 FINDINGS: Lungs: Centrilobular pulmonary emphysema. Minimal linear scarring over the left upper lung zone. Pleural space: Unremarkable. Mediastinum: Calcified aorta. Normal mediastinal contour. Bones/joints: No acute findings. IMPRESSION: No substantial change.
[2024-12-14] MEDS ORDERED: NALOXONE 0.4 MG/ML 1 ML VIAL IVP PRN (04:15)
--- NOTE | 2024-12-14 05:57 | P.HPIM ---
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 Patient presents for shortness of breath. Patient reports that she is having cough with clear sputum and shortness of breath for the past few days. She denies having any fever or chills. No lower extremity edema, swelling or chest pain. She does report slight abdominal pain with loose stools. She reports that she has been using her home nebulizer very frequently without improvement. Upon arrival to the ED, patient was hemodynamically stable but slightly tachycardic and was started on 4 L nasal cannula oxygen. Patient was started and received [id number] nebulizer treatment. She is currently 100% saturation on 3 L. She still has some diminished breath sounds per ED provider and is slightly better than when she came in. Chest x-ray showing chronic changes and nothing acute. Labs nothing remarkable. Patient will be admitted for observation and pulmonology consult Review of systems : Positive for shortness of breath and cough. The rest of the 14 point review of system is negative PE : General: Slightly ill looking Derm: warm, dry, intact Head: atraumatic, normocephalic, symmetric Eyes: EOMI, anicteric sclera Mouth: no lip lesion, mucus membranes moist Cardiovascular: S1 S2 reg, no murmur, rubs, or gallops Lungs: Bilateral expiratory wheezing Abdominal: soft, non-tender to palpataion, no appreciable organomegaly Extremities: no gross muscle atrophy, no edema, no contractures Neuro: Alert, Oriented, CNII-XII grossly intact, gait normal Assessment and plan : - COPD exacerbation secondary to tracheobronchitis/acute on chronic hypoxic respiratory failure due to COPD exacerbation : Patient takes Trelegy Ellipta [phone] at home daily Will keep patient on scheduled DuoNebs, oral prednisone and Pulmicort twice daily Consult pulmonology Oral azithromycin Patient usually follows up with Dr. Gilbert Chest x-ray showing chronic changes -Essential hypertension : Controlled at home with hydrochlorothiazide 25 mg daily, losartan potassium 100 mg daily, Toprol-XL 50 mg daily; continue once verified by pharmacy CODE STATUS is full code DVT prophylaxis on Lovenox subcu Disposition : Likely home when patient is stable Patient will be admitted as observation Time spent : 55 min Past Medical History Past Medical History: COPD, Eye Disorder, Hearing Disorder / Deafness, Hyperlip idemia, Hypertension, Liver Disease, Osteoarthritis (OA), Pneumonia Additional Past Medical History / Comment(s): exacerbation of cough and copd, [place], Hx stomach ulcer, cysts on liver., urinary leakage., small hiatal hernia, diverticulosis, tinnitus , Pneumonia 2020., Oxygen @ 3 L PRN [place] ., environmental allergies, back pain., 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 Last Myocardial Infarction Date:: 40 years ago History of Any Multi-Drug Resistant Organisms: None Reported Past Surgical History: Cholecystectomy, Hysterectomy, Orthopedic Surgery Additional Past Surgical History / Comment(s): KNEE arthroscopy, COLONOSCOPY- LARGE POLYP REMOVED, EGD, cataracts, Right TKA (10/21/21) Past Anesthesia/Blood Transfusion Reactions: No Reported Reaction Additional Past Anesthesia/Blood Transfusion Reaction / Comment(s): No hx blood transfusion. Past Psychological History: No Psychological Hx Reported Additional Psychological History / Comment(s): She is independent, LIVE ALONE IN AN APARTMENT, PATIENT STILL DRIVES Smoking Status: Former smoker Past Alcohol Use History: None Reported Additional Past Alcohol Use History / Comment(s): Started smoking 1964, quit smoking 1989, smoked 1ppd. Past Drug Use History: None Reported Additional Drug Use History / Comment(s): Uses cbd oil occ for arthritic pain - Past Family History Sister(s) Family Medical History: Cancer Additional Family Medical History / Comment(s): #1 sister colon cancer, # 2 s ister lung cancer. Father Family Medical History: Cancer Additional Family Medical History / Comment(s): Prostate cancer. Mother Family Medical History: Asthma Additional Family Medical History / Comment(s): Heart problems. Son(s) Additional Family Medical History / Comment(s): SCLERODERMA Medications and Allergies Home Medications Medication Instructions Recorded Confirmed Type Losartan Potassium 100 mg PO DAILY 10/30/14 11/18/24 History hydroCHLOROthiazide [Hydrodiuril] 25 mg PO DAILY #90 tab 09/30/22 11/18/24 Rx Metoprolol Succinate (ER) [Toprol 50 mg PO DAILY 04/25/23 11/18/24 History XL] Albuterol Nebulized [Ventolin 2.5 mg INHALATION RT-QID 05/03/24 11/18/24 History Nebulized] Albuterol Sulfate [Albuterol 2 puff INHALATION RT-Q4H PRN 05/03/24 11/18/24 History Sulfate Hfa] Fluorometholone 0.1% Ophth Sandy 1 drops BOTH EYES TID 11/18/24 11/18/24 History [Fml] predniSONE [Deltasone] 20 mg PO DAILY 11/18/24 11/18/24 History Budesonide-Formot 160-4.5 Mcg 2 puff INHALATION BID 30 Days #1 11/21/24 Rx [Symbicort 160-4.5 Mcg Inhaler] inh metFORMIN HCL [Glucophage] 500 mg PO BID 30 Days #60 tab 11/21/24 Rx predniSONE See Rx Instructions .ROUTE 11/21/24 Rx .COMPLEX 8 Days #28 tab Allergies Allergy/AdvReac Type Severity Reaction Status Date / Time hydrocodone bitartrate AdvReac states Verified 12/13/24 23:46 [From Vicodin] "doesn't make me feel good,I feel high" Physical Exam Vitals: Vital Signs Temp Pulse Resp BP Pulse Ox 12/14/24 03:43 97 16 140/72 98 12/14/24 01:13 100 24 133/58 100 12/14/24 01:12 100 12/14/24 01:02 98 12/14/24 00:25 98 26 H 161/80 96 12/13/24 23:42 98.3 F 120 H 22 168/73 97 Intake and Output 12/13/24 12/13/24 12/14/24 14:59 22:59 06:59 Other: Weight 83.915 kg Results CBC & Chem 7: 12/14/24 00:25 12/14/24 00:25 Labs: Abnormal Lab Results - Last 24 Hours (Table) 12/14/24 12/14/24 Range/Units 00:25 00:25 WBC 11.82 H (4.50-10.00) 10*3/uL Immature Gran # 0.06 H (0.00-0.04) 10*3/uL Neutrophils # 7.79 H (1.80-7.70) 10*3/uL Eosinophils # 1.02 H (0.04-0.35) 10*3/uL Carbon Dioxide 32 H (22-30) mmol/L Glucose 110 H (74-99) mg/dL
[2024-12-14] MEDS: IPRATROPIUM-ALBUTEROL 3 ML NEB INHALATION STA (06:32)
[2024-12-14] MEDS: IPRATROPIUM-ALBUTEROL 3 ML NEB INHALATION PRN (06:39)
[2024-12-14] MEDS: BUDESONIDE 0.5 MG/2 ML NEBU INHALATION STA (06:39)
[2024-12-14] MEDS: predniSONE 20 MG TAB PO SCH (08:16)
[2024-12-14] MEDS: AZITHROMYCIN 500 MG TAB PO SCH (08:16)
[2024-12-14] MEDS: ENOXAPARIN 40 MG/0.4 ML SYRINGE SQ SCH (08:17)
[2024-12-14] MEDS: IPRATROPIUM-ALBUTEROL 3 ML NEB INHALATION SCH (09:23)
[2024-12-14] MEDS ORDERED: DEXTROSE 50% SYRINGE 50 ML IVP PRN ×2 (11:47)
--- NOTE | 2024-12-14 11:51 | P.PN ---
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 Patient reports that she is having cough with clear sputum and shortness of breath for the past few days. She denies having any fever or chills. No lower extremity edema, swelling or chest pain. She does report slight abdominal pain with loose stools. She reports that she has been using her home nebulizer very frequently without improvement. Upon arrival to the ED, patient was hemodynamically stable but slightly tachycardic and was started on 4 L nasal cannula oxygen. Patient was started and received [id number] nebulizer treatment. She is currently 100% saturation on 3 L. She still has some diminished breath sounds per ED provider and is slightly better than when she came in. Chest x-ray showing chronic changes and nothing acute. Labs nothing remarkable. Patient will be admitted for observation and pulmonology consult 12/14: Seen and examined in the ER, no acute events overnight, patient states that her breathing has improved, however, she feels weak and not ready to be discharged. She is maintained on home oxygen, tachycardic, BP elevated 150s over 80s, no new blood work available as it was done on admission. Pertinent positives and negatives as discussed above, a complete review of systems was performed and all other systems are negative. Vitals Signs Reviewed. General: Nontoxic, no distress and appears stated age. Derm: Skin warm and dry, normal coloration for ethnicity. Head: Atraumatic, normocephalic and symmetric. Eyes: EOM's intact, no lid lag, and anicteric sclera Mouth: no lip lesions, mucus membranes moist Cardiovascular: regular rate and rhythm with normal S1S2, systolic murmur, positive posterior tibial pulses bilaterally, and cap refill < 2 seconds. Lungs: Respirations even, regular, and unlabored on baseline 3 L O2 via nasal cannula. Lungs diminished with diffuse expiratory wheezes bilaterally, no rhonchi, no rales, no wheezing, and no accessory muscle usage. Abdominal: soft, nontender to palpation, no guarding, no appreciable organomegaly Ext: ROM intact. No gross muscle atrophy, scant lower extremity edema, no contractures Neuro: Speech clear, face symmetrical and CN II-XII grossly intact with no noted focal neuro deficits Psych: Alert and oriented to person, place, time, and situation. Appropriate and pleasant affect. Assessment and Plan: COPD exacerbation chronic hypoxic and hypercarbic respiratory failure secondary to above History of TB -Consult to Pulmonology, appreciate recommendations -Oxygenation to be administered and titrated as needed to maintain SPO2 equal to or greater than 90% -Telemetry monitoring. -Monitor pulse-oximetry -Duonebs every 4 hours and as needed for SOB and/or wheezing, Symbicort 160/4.5 twice daily -Incentive Spirometry -Steroids: Prednisone 40 p.o. daily -Antibiotics: Empirically treated with azithromycin 500 mg daily x 3 doses Hypertension. Monitor vital signs and continue daily medication regimen including hydrochlorothiazide 25 mg daily, losartan 100 mg daily, and metoprolol 50 mg daily Hyperglycemia, newly diagnosed type 2 diabetes mellitus with hemoglobin A1c of 6.6%. 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 Liver profile unremarkable. Caution with hepatotoxic medications. DVT ppx: Lovenox Code status: Full code Anticipated discharge place: [facility] Anticipated discharge time: 12/15 Objective - Vital Signs Vital signs: Vital Signs Temp 98.3 F 12/13/24 23:42 Pulse 112 H 12/14/24 09:36 Resp 16 12/14/24 07:32 BP 153/81 12/14/24 07:32 Pulse Ox 96 12/14/24 06:23 FiO2 Intake & Output 12/13/24 12/14/24 12/14/24 18:59 06:59 18:59 Weight 83.915 kg - Labs CBC & Chem 7: 12/14/24 00:25 12/14/24 00:25 Labs: Abnormal Lab Results - Last 24 Hours (Table) 12/14/24 12/14/24 Range/Units 00:25 00:25 WBC 11.82 H (4.50-10.00) 10*3/uL Immature Gran # 0.06 H (0.00-0.04) 10*3/uL Neutrophils # 7.79 H (1.80-7.70) 10*3/uL Eosinophils # 1.02 H (0.04-0.35) 10*3/uL Carbon Dioxide 32 H (22-30) mmol/L Glucose 110 H (74-99) mg/dL
[2024-12-14 12:18] LABS: Glucose,Whole Blood 285 mg/dL (70-110)
[2024-12-14] MEDS: INSULIN LISPRO (HumaLOG) 100 UNIT/ML 10 mL VL SQ SCH (12:24)
--- NOTE | 2024-12-14 14:16 | P.CNPUL ---
History of Present Illness Consult date: 12/14/24 Requesting physician: Caitlin Capps Reason for consult: dyspnea, COPD Chief complaint: Shortness of breath, cough, weakness History of present illness: This is a very pleasant 88-year-old female patient with a known history of oxygen dependent and steroid-dependent chronic obstructive pulmonary disease, normally on oxygen at 3 L/min at home, hypertension, hyperlipidemia, former smoker, Schatzki ring status post balloon dilatation. She presented here to the emergency room with complaints of a 3-day history of increasing shortness of breath, cough congestion and weakness. She denied any fever or chills. No hemoptysis. Chest x-ray shows centrilobular pulmonary emphysema with minimal l inear scarring. No change compared to previous in November 2024. White count 11.8. Hemoglobin 12.8. Platelets 338. Sodium 137. Potassium 4.0. Bicarb 32. BUN 16. Creatinine 0.61. Glucose 110. Viral screen negative for influenza A/B, RSV and COVID. She is seen today in consultation in the emergency department. Currently sitting up in a stretcher. Awake and alert in no acute distress. She still has a dry nonproductive cough. She still feels weak. Currently maintaining good O2 saturations in the mid 90s on 3 L/min per nasal cannula. She is afebrile. Hemodynamically stable. Review of Systems REVIEW OF SYSTEMS: CONSTITUTIONAL: Positive for generalized weakness. Denies any recent significant weight loss or weight gain. EYES: Denies change in vision. EARS, NOSE, MOUTH, THROAT: Denies headaches, denies sore throat. CARDIOVASCULAR: Denies chest pain, palpitations or syncopal episodes. RESPIRATORY: Positive for shortness of breath, cough, congestion no hemoptysis. GASTROINTESTINAL: Denies change in appetite, denies abdominal pain GENITOURINARY: Denies hematuria, denies infections. MUSKULOSKELETAL: Denies pain, denies swelling. INTEGUMENTARY: Denies rash, denies eczema. NEUROLOGICAL: Denies recent memory loss, no recent seizure activity. PSYCHIATRIC: Denies anxiety, denies depression. HEMATOLOGIC/LYMPHATIC: Denies anemia, denies enlarged lymph nodes. Past Medical History Past Medical History: COPD, Eye Disorder, Hearing Disorder / Deafness, Hyperlipidemia, Hypertension, Liver Disease, Osteoarthritis (OA), Pneumonia Additional Past Medical History / Comment(s): exacerbation of cough and copd, [place], Hx stomach ulcer, cysts on liver., urinary leakage., small hiatal hernia, diverticulosis, tinnitus , Pneumonia 2020., Oxygen @ 3 L PRN [place] ., environmental allergies, back pain., 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 Last Myocardial Infarction Date:: 40 years ago History of Any Multi-Drug Resistant Organisms: None Reported Past Surgical History: Cholecystectomy, Hysterectomy, Orthopedic Surgery Additional Past Surgical History / Comment(s): KNEE arthroscopy, COLONOSCOPY- LARGE POLYP REMOVED, EGD, cataracts, Right TKA (10/21/21) Past Anesthesia/Blood Transfusion Reactions: No Reported Reaction Additional Past Anesthesia/Blood Transfusion Reaction / Comment(s): No hx blood transfusion. Past Psychological History: No Psychological Hx Reported Additional Psychological History / Comment(s): She is independent, LIVE ALONE IN AN APARTMENT, PATIENT STILL DRIVES Smoking Status: Former smoker Past Alcohol Use History: None Reported Additional Past Alcohol Use History / Comment(s): Started smoking 1964, quit smoking 1989, smoked 1ppd. Past Drug Use History: None Reported Additional Drug Use History / Comment(s): Uses cbd oil occ for arthritic pain - Past Family History Sister(s) Family Medical History: Cancer Additional Family Medical History / Comment(s): #1 sister colon cancer, # 2 sister lung cancer. Father Family Medical History: Cancer Additional Family Medical History / Comment(s): Prostate cancer. Mother Family Medical History: Asthma Additional Family Medical History / Comment(s): Heart problems. Son(s) Additional Family Medical History / Comment(s): SCLERODERMA Medications and Allergies Home Medications Medication Instructions Recorded Confirmed Type Losartan Potassium 100 mg PO DAILY 10/30/14 12/14/24 History hydroCHLOROthiazide [Hydrodiuril] 25 mg PO DAILY #90 tab 09/30/22 12/14/24 Rx Metoprolol Succinate (ER) [Toprol 50 mg PO DAILY 04/25/23 12/14/24 History XL] Albuterol Nebulized [Ventolin 2.5 mg INHALATION RT-QID 05/03/24 12/14/24 History Nebulized] Albuterol Sulfate [Albuterol 2 puff INHALATION RT-Q4H PRN 05/03/24 12/14/24 History Sulfate Hfa] Fluorometholone 0.1% Ophth Sandy 1 drops BOTH EYES TID 11/18/24 12/14/24 History [Fml] predniSONE [Deltasone] 10 mg PO DAILY 11/18/24 12/14/24 History Budesonide-Formot 160-4.5 Mcg 2 puff INHALATION BID 30 Days #1 11/21/24 12/14/24 Rx [Symbicort 160-4.5 Mcg Inhaler] inh metFORMIN HCL [Glucophage] 500 mg PO BID 30 Days #60 tab 11/21/24 12/14/24 Rx Olopatadine HCl [Pataday Once 1 drop BOTH EYES DAILY 12/14/24 12/14/24 History Daily Relief] Allergies Allergy/AdvReac Type Severity Reaction Status Date / Time hydrocodone bitartrate AdvReac states Verified 12/14/24 09:31 [From Vicodin] "doesn't make me feel good, I feel high" Physical Exam Vitals: Vital Signs Temp Pulse Resp BP Pulse Ox 12/14/24 12:52 104 H 12/14/24 12:41 112 H 12/14/24 12:25 107 H 18 127/70 95 12/14/24 09:36 112 H 12/14/24 09:24 108 H 12/14/24 07:32 100 16 153/81 12/14/24 06:51 94 12/14/24 06:41 94 12/14/24 06:23 100 18 96 12/14/24 03:43 97 16 140/72 98 12/14/24 01:13 100 24 133/58 100 12/14/24 01:12 100 12/14/24 01:02 98 12/14/24 00:25 98 26 H 161/80 96 12/13/24 23:42 98.3 F 120 H 22 168/73 97 Intake and Output 12/13/24 12/14/24 12/14/24 22:59 06:59 14:59 Other: Weight 83.915 kg GENERAL EXAM: Alert, pleasant 89-year-old female, on 3 L nasal cannula, fairly comfortable in no apparent distress. HEAD: Normocephalic. EYES: Normal reaction of pupils, equal size. NOSE: Clear with pink turbinates. THROAT: No erythema or exudates. NECK: No masses, no JVD. CHEST: No chest wall deformity. LUNGS: Equal air entry with faint bilateral end expiratory wheeze, diminished. CVS: S1 and S2 normal with no audible murmur, regular rhythm. ABDOMEN: No hepatosplenomegaly, normal bowel sounds, no guarding or rigidity. SPINE: No scoliosis or deformity SKIN: No rashes CENTRAL NERVOUS SYSTEM: No focal deficits, tone is normal in all 4 extremities. EXTREMITIES: There is no peripheral edema. No clubbing, no cyanosis. Peripheral pulses are intact. Results - Laboratory Findings CBC and BMP: 12/14/24 00:25 12/14/24 00:25 PT/INR, D-dimer PT 10.2 sec (10.0-12.5) 12/14/24 00: INR 0.9 (<1.2) 12/14/24 00:25 Abnormal lab findings: Abnormal Labs 12/14/24 12/14/24 12/14/24:25 00:25 12:16 WBC 11.82 H Immature Gran # 0.06 H Neutrophils # 7.79 H Eosinophils # 1.02 H Carbon Dioxide 32 H Glucose 110 H POC Glucose (mg/dL) 285 H - Diagnostic Findings Chest x-ray: image reviewed Assessment and Plan Assessment: Acute on chronic hypoxemic respiratory failure secondary to an acute exacerbation of chronic obstructive pulmonary disease. Viral screen negative. Severe oxygen dependent, steroid-dependent chronic obstructive pulmonary disease, normally maintained on 3 L/min per nasal cannula and 10 mg of p rednisone daily Former smoker Hypertension Hyperlipidemia Schatzki's ring status post balloon dilatation Plan: The patient was seen and evaluated Chest x-ray, labs and medications reviewed Initiate DuoNeb inhalations, Symbicort Initiate a prednisone taper Continue empiric antibiotics Lovenox for DVT prophylaxis Resume her home medications Titrate the FiO2 as tolerated We will continue to follow and make further recommendations based on her clinical status I have personally seen and examined the patient, performed the documentation and the assessment and plan as written. Number of minutes spent on the visit: 20 Dictation was produced using Miiraation software. Please excuse any grammatical, word or spelling errors. Time with Patient: Greater than 30
[2024-12-14] MEDS: ACETAMINOPHEN TAB 325 MG TAB PO PRN (14:47)
[2024-12-14] MEDS: FLUOROMETHOLONE 0.1% OPHTH DROPS 5 ML BTL BOTH EYES SCH (15:25)
[2024-12-14] MEDS: MAGNESIUM OXIDE 400 MG TAB PO STA (16:17)
[2024-12-14 16:56] LABS: Glucose,Whole Blood 260 mg/dL (70-110)
[2024-12-14] MEDS: SYMBICORT 160-4.5 MCG INHALER INHALATION SCH (20:36)
[2024-12-14 20:52] LABS: Glucose,Whole Blood 155 mg/dL (70-110)
[2024-12-15 05:48] LABS: Glucose,Whole Blood 129 mg/dL (70-110)
[2024-12-15] MEDS: METOPROLOL SUCCINATE (ER) 50 MG TAB.ER.24H PO SCH (08:47)
[2024-12-15] MEDS: hydroCHLOROthiazide 25 MG TAB PO SCH (08:47)
[2024-12-15] MEDS: LOSARTAN 50 MG TAB PO SCH (08:47)
[2024-12-15] MEDS: KETOTIFEN 0.025% OPHTH DROPS 5 ML BTL BOTH EYES SCH (10:06)
--- NOTE | 2024-12-15 12:20 | P.PN ---
Subjective Progress Note Date: 12/15/24 This is a very pleasant 88-year-old female patient with a known history of oxygen dependent and steroid-dependent chronic obstructive pulmonary disease, normally on oxygen at 3 L/min at home, hypertension, hyperlipidemia, former smoker, Schatzki ring status post balloon dilatation. She presented here to the emergency room with complaints of a 3-day history of increasing shortness of breath, cough congestion and weakness. She denied any fever or chills. No hemoptysis. Chest x-ray shows centrilobular pulmonary emphysema with minimal linear scarring. No change compared to previous in November 2024. White count 11.8. Hemoglobin 12.8. Platelets 338. Sodium 137. Potassium 4.0. Bicarb 32. BUN 16. Creatinine 0.61. Glucose 110. Viral screen negative for influenza A/B, RSV and COVID. She is seen today in consultation in the emergency department. Currently sitting up in a stretcher. Awake and alert in no acute distress. She still has a dry nonproductive cough. She still feels weak. Cur rently maintaining good O2 saturations in the mid 90s on 3 L/min per nasal cannula. She is afebrile. Hemodynamically stable. The patient is seen today December 15, 2024 in follow-up on the regular medical floor. She is currently sitting up in bed. Awake and alert in no acute distress. Denies any worsening shortness of breath, cough or congestion. She still has some dyspnea on exertion. She did decline her breathing treatments this morning. She is on a prednisone taper. She is complaining of some abdominal discomfort. She is maintaining good O2 saturations in the upper 90s on 3 L/min per nasal cannula. She is afebrile. Hemodynamically stable. Glucose 129. Objective - Vital Signs Vital signs: Vital Signs Temp 98.3 F 12/15/24 07:16 Pulse 102 H 12/15/24 08:00 Resp 17 12/15/24 07:16 BP 143/84 12/15/24 07:16 Pulse Ox 97 12/15/24 07:16 FiO2 Intake & Output 12/14/24 12/15/24 12/15/24 18:59 06:59 18:59 Weight 83.915 kg Other: # Voids 3 - Exam GENERAL EXAM: Alert, active, 89-year-old female, on 3 L nasal cannula, comfortable in no apparent distress. HEAD: Normocephalic. EYES: Normal reaction of pupils, equal size. NOSE: Clear with pink turbinates. THROAT: No erythema or exudates. NECK: No masses, no JVD. CHEST: No chest wall deformity. LUNGS: Equal air entry with faint end expiratory wheeze. CVS: S1 and S2 normal with no audible murmur, regular rhythm. ABDOMEN: No hepatosplenomegaly, normal bowel sounds, no guarding or rigidity. SPINE: No scoliosis or deformity SKIN: No rashes CENTRAL NERVOUS SYSTEM: No focal deficits, tone is normal in all 4 extremities. EXTREMITIES: There is no peripheral edema. No clubbing, no cyanosis. Peripheral pulses are intact. - Labs CBC & Chem 7: 12/14/24 00:25 12/14/24 00:25 Labs: Abnormal Lab Results - Last 24 Hours (Table) 12/14/24 12/14/24 12/14/24 Range/Units 12:16 16:55 20:51 POC Glucose (mg/dL) 285 H 260 H 155 H (70-110) mg/dL 12/15/24 Range/Units 05:47 POC Glucose (mg/dL) 129 H (70-110) mg/dL Assessment and Plan Assessment: Acute on chronic hypoxemic respiratory failure secondary to an acute exacerbation of chronic obstructive pulmonary disease. Viral screen negative. Severe oxygen dependent, steroid-dependent chronic obstructive pulmonary disease, normally maintained on 3 L/min per nasal cannula and 10 mg of prednisone daily Former smoker Hypertension Hyperlipidemia Schatzki's ring status post balloon dilatation Plan: The patient was seen and evaluated Labs and medications reviewed Patient declined DuoNeb inhalations, Symbicort Continue a prednisone taper Continue empiric antibiotics Lovenox for DVT prophylaxis Titrate the FiO2 as tolerated Cleared for discharge from the pulmonary standpoint Resume her home oxygen, pulmonary medications Follow-up in our office in 1 week This patient was seen independently by the pulmonary nurse practitioner addressing pulmonary issues I have personally seen and examined the patient, performed the documentation and the assessment and plan as written. Number of minutes spent on the visit: 24 Dictation was produced using KUB[employer] dictation software. Please excuse any grammatical, word or spelling errors.
[2024-12-15 12:30] LABS: Glucose,Whole Blood 134 mg/dL (70-110)
--- NOTE | 2024-12-15 13:52 | P.PN ---
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 Patient reports that she is having cough with clear sputum and shortness of breath for the past few days. She denies having any fever or chills. No lower extremity edema, swelling or chest pain. She does report slight abdominal pain with loose stools. She reports that she has been using her home nebulizer very frequently without improvement. Upon arrival to the ED, patient was hemodynamically stable but slightly tachycardic and was started on 4 L nasal cannula oxygen. Patient was started and received [id number] nebulizer treatment. She is currently 100% saturation on 3 L. She still has some diminished breath sounds per ED provider and is slightly better than when she came in. Chest x-ray showing chronic changes and nothing acute. Labs nothing remarkable. Patient will be admitted for observation and pulmonology consult 12/15 Seen and examined bedside, no acute events overnight, patient states that her breathing is at baseline, however, weakness is persistent, she is afraid that she is going to fall without support. She also noted intermittent abdominal cramping, has not had a bowel movement since admission. Requested her major organs to be checked with x-rays, although, she states that she will not be interested in any interventions besides pills she something abnormal be found. Discussed CODE STATUS, patient is DNR/DNI. She is maintained on home oxygen, tachycardic in 100s, BP elevated over 80s, since patient did not have significant abnormalities on her blood work on admission, no new blood work was ordered. Patient will stay overnight to work with physical therapy to determine her discharge planning, otherwise stable for discharge Pertinent positives and negatives as discussed above, a complete review of sy stems was performed and all other systems are negative. Vitals Signs Reviewed. General: Nontoxic, no distress and appears stated age. Derm: Skin warm and dry, normal coloration for ethnicity. Head: Atraumatic, normocephalic and symmetric. Eyes: EOM's intact, no lid lag, and anicteric sclera Mouth: no lip lesions, mucus membranes moist Cardiovascular: regular rate and rhythm with normal S1S2, systolic murmur, positive posterior tibial pulses bilaterally, and cap refill < 2 seconds. Lungs: Respirations even, regular, and unlabored on baseline 3 L O2 via nasal cannula. Lungs diminished with diffuse expiratory wheezes bilaterally, no rhonchi, no rales, no wheezing, and no accessory muscle usage. Abdominal: soft, nontender to palpation, no guarding, no appreciable organomegaly Ext: ROM intact. No gross muscle atrophy, scant lower extremity edema, no contractures Neuro: Speech clear, face symmetrical and CN II-XII grossly intact with no noted focal neuro deficits Psych: Alert and oriented to person, place, time, and situation. Appropriate and pleasant affect. Assessment and Plan: COPD exacerbation, resolved chronic hypoxic and hypercarbic respiratory failure secondary to above History of TB -Consult to Pulmonology, appreciate recommendations -Oxygenation to be administered and titrated as needed to maintain SPO2 equal to or greater than 90% -Telemetry monitoring. -Monitor pulse-oximetry -Duonebs every 4 hours and as needed for SOB and/or wheezing, Symbicort 160/4.5 twice daily -Incentive Spirometry -Steroids: Prednisone 40 p.o. daily -Antibiotics: Empirically treated with azithromycin 500 mg daily x 3 doses SOT 12/14 Generalized weakness -PT OT Abdominal cramps Constipation -Patient does have epigastric tenderness, normal bowel sounds - provide with MiraLAX and senna Hypertension. Monitor vital signs and continue daily medication regimen including hydrochlorothiazide 25 mg daily, losartan 100 mg daily, and metoprolol 50 mg daily Hyperglycemia, newly diagnosed type 2 diabetes mellitus with hemoglobin A1c of 6.6%. 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 Liver profile unremarkable. Caution with hepatotoxic medications. DVT ppx: Lovenox Code status: Cardiac Anticipated discharge place: TBD Anticipated discharge time: Needs to be seen by PT OT to determine discharge planning Objective - Vital Signs Vital signs: Vital Signs Temp 98.3 F 12/15/24 07:16 Pulse 102 H 12/15/24 08:00 Resp 17 12/15/24 07:16 BP 143/84 12/15/24 07:16 Pulse Ox 97 12/15/24 07:16 FiO2 Intake & Output 12/14/24 12/15/24 12/15/24 18:59 06:59 18:59 Weight 83.915 kg Other: # Voids 3 - Labs CBC & Chem 7: 12/14/24 00:25 12/14/24 00:25 Labs: Abnormal Lab Results - Last 24 Hours (Table) 12/14/24 12/14/24 12/15/24 Range/Units 16:55 20:51 05:47 POC Glucose (mg/dL) 260 H 155 H 129 H (70-110) mg/dL 12/15/24 Range/Units 12:28 POC Glucose (mg/dL) 134 H (70-110) mg/dL
[2024-12-15] MEDS: SENNOSIDES 8.6 MG TAB PO SCH (16:29)
[2024-12-15] MEDS: guaiFENesin-Coden 100-10MG/5ML 10 ML CUP PO PRN (16:29)
[2024-12-15 16:43] LABS: Glucose,Whole Blood 200 mg/dL (70-110)
[2024-12-15 20:43] LABS: Glucose,Whole Blood 162 mg/dL (70-110)
[2024-12-16 05:48] LABS: Glucose,Whole Blood 109 mg/dL (70-110)
[2024-12-16 10:16] VITALS: RESP 16
[2024-12-16 12:06] LABS: Glucose,Whole Blood 122 mg/dL (70-110)
--- NOTE | 2024-12-16 14:47 | P.PN ---
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 Patient reports that she is having cough with clear sputum and shortness of breath for the past few days. She denies having any fever or chills. No lower extremity edema, swelling or chest pain. She does report slight abdominal pain with loose stools. She reports that she has been using her home nebulizer very frequently without improvement. Upon arrival to the ED, patient was hemodynamically stable but slightly tachycardic and was started on 4 L nasal cannula oxygen. Patient was started and received [id number] nebulizer treatment. She is currently 100% saturation on 3 L. She still has some diminished breath sounds per ED provider and is slightly better than when she came in. Chest x-ray showing chronic changes and nothing acute. Labs nothing remarkable. Patient will be admitted for observation and pulmonology consult Discussed CODE STATUS, patient is DNR/DNI. Patient was stable for discharge on 12/15 and cleared by pulmonology, however, she stated that she feels weak and unsafe to go home, on 12/16 physical therapy team was called multiple times by RN with no response, RN did get the patient up, patient required standby assist, was ambulating with walker, she uses bathroom. Due to safety concern and ongoing weakness, patient will stay overnight, encourage activity, discussed with RN, check orthostatic vitals. Patient sw itched to inpatient She is afebrile heart rate in 80s, on home oxygen. Pertinent positives and negatives as discussed above, a complete review of systems was performed and all other systems are negative. Vitals Signs Reviewed. General: Nontoxic, no distress and appears stated age. Derm: Skin warm and dry, normal coloration for ethnicity. Head: Atraumatic, normocephalic and symmetric. Eyes: EOM's intact, no lid lag, and anicteric sclera Mouth: no lip lesions, mucus membranes moist Cardiovascular: regular rate and rhythm with normal S1S2, systolic murmur, positive posterior tibial pulses bilaterally, and cap refill < 2 seconds. Lungs: Respirations even, regular, and unlabored on baseline 3 L O2 via nasal cannula. Lungs diminished with diffuse expiratory wheezes bilaterally, no rhon chi, no rales, no wheezing, and no accessory muscle usage. Abdominal: soft, nontender to palpation, no guarding, no appreciable organomegaly Ext: ROM intact. No gross muscle atrophy, scant lower extremity edema, no contractures Neuro: Speech clear, face symmetrical and CN II-XII grossly intact with no noted focal neuro deficits Psych: Alert and oriented to person, place, time, and situation. Appropriate and pleasant affect. Assessment and Plan: COPD exacerbation, resolved chronic hypoxic and hypercarbic respiratory failure secondary to above History of TB -Consult to Pulmonology, appreciate recommendations -Oxygenation to be administered and titrated as needed to maintain SPO2 equal to or greater than 90% -Telemetry monitoring. -Monitor pulse-oximetry -Duonebs every 4 hours and as needed for SOB and/or wheezing, Symbicort 160/4.5 twice daily -Incentive Spirometry -Steroids: Prednisone 40 p.o. daily -Antibiotics: Empirically treated with azithromycin 500 mg daily x 3 doses SOT 12/14 Generalized weakness -PT OT -Orthostatic vitals -Encourage activity Abdominal cramps Constipation -Patient does have epigastric tenderness, normal bowel sounds - provide with MiraLAX and senna Hypertension. Monitor vital signs and continue daily medication regimen including hydrochlorothiazide 25 mg daily, losartan 100 mg daily, and metoprolol 50 mg daily Hyperglycemia, newly diagnosed type 2 diabetes mellitus with hemoglobin A1c of 6.6%. 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 Liver profile unremarkable. Caution with hepatotoxic medications. DVT ppx: Lovenox Code status: Cardiac Anticipated discharge place: Home Anticipated discharge time: 12/17 Objective - Vital Signs Vital signs: Vital Signs Temp 97.7 F 12/16/24 07:10 Pulse 80 12/16/24 12:20 Resp 16 12/16/24 07:10 BP 133/79 12/16/24 07:10 Pulse Ox 99 12/16/24 07:10 FiO2 Intake & Output 12/15/24 12/16/24 12/16/24 18:59 06:59 18:59 Intake Total 240 Balance 240 Intake: Oral 240 Other: Voiding Method Toilet Toilet # Voids 3 2 - Labs CBC & Chem 7: 12/14/24 00:25 12/14/24 00:25 Labs: Abnormal Lab Results - Last 24 Hours (Table) 12/15/24 12/15/24 12/16/24 Range/Units 16:42 20:40 12:04 POC Glucose (mg/dL) 200 H 162 H 122 H (70-110) mg/dL
[2024-12-16 17:09] LABS: Glucose,Whole Blood 143 mg/dL (70-110)
[2024-12-16 20:23] LABS: Glucose,Whole Blood 140 mg/dL (70-110)
[2024-12-17 06:24] LABS: Glucose,Whole Blood 90 mg/dL (70-110)
[2024-12-17 08:05] VITALS: BP 119/73; PULSE 74; TEMP 97.8
[2024-12-17] MEDS: MAG HYDROX/AL HYDROX/SIMETH 30 ML, diphenhydrAMINE ELIXIR 75 MG, LIDOCAINE VISCOUS 2% 3... PO SCH (10:29)
--- NOTE | 2024-12-17 11:19 | P.DS ---
Providers Date of admission: 12/14/24 04:17 Attending physician: Milan Solorzano MD Consults: 12/14/24 04:15 Consult Physician Routine Consulting Provider: Emily Carney Consult Reason/Comments: COPD exacerbation Do you want consulting provider notified?: Yes, Notify in am Primary care physician: Po Winchester MD Hospital Course: Discharge Diagnosis: Plan chronic hypoxic and hypercapnic respiratory secondary to above History of TB Generalized weakness Abdominal cramps Constipation Hypertension Hyperglycemia, type II DM Chronic liver disease secondary to to tuberculosis Throat pain Hospital Course: Patient is a pleasant 89-year-old female with a past medical history of COPD with chronic hypoxic respiratory failure home oxygen dependent on 3 L, Hypertension, hyperlipidemia, 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 Patient reports that she is having cough with clear sputum and shortness of breath for the past few days. She denies having any fever or chills. No lower extremity edema, swelling or chest pain. She does report slight abdominal pain with loose stools. She reports mine t she has been using her home nebulizer very frequently without improvement. Upon arrival to the ED, patient was hemodynamically stable but slightly tachycardic and was started on 4 L nasal cannula oxygen. Patient was started and received [id number] nebulizer treatment. She is currently 100% saturation on 3 L. She still has some diminished breath sounds per ED provider and is slightly better than when she came in. Chest x-ray showing chronic changes and nothing acute. Labs nothing remarkable. Patient will be admitted for observation and pulmonology consult Discussed CODE STATUS, patient is DNR/DNI. Patient was stable for discharge on 12/15 and cleared by pulmonology, however, she stated that she feels weak and unsafe to go home, on 12/16 physical therapy team was called multiple times by RN with no response, RN did get the patient up, patient required standby assist, was ambulating with walker, she uses bathroom. Due to safety concern and ongoing weakness, patient will stay overnight, encourage activity, discussed with RN, check orthostatic vitals. Patient switched to inpatient On 12/16: She was seen and examined at bedside, discussed with RN and witnessed myself, patient is independent with ambulation with walker's, seems to be stable on her feet. She states that the breathing is at baseline, her vitals are stable, she was complaining of throat pain and possible acid reflux/burning sensation. She was provided with Maalox and will be discharged on Protonix for GI prophylaxis in the settings of chronic steroid use. Patient to follow-up with primary care physician pulmonary. She requested to provide with the contact information for another PCP as it is hard to find an appointment with her current doctor although she seems to be satisfied with provided care. Patient seen and examined at bedside. Vital signs reviewed and stable. General: Nontoxic, no distress and appears stated age. Derm: Skin warm and dry, normal coloration for ethnicity. Head: Atraumatic, normocephalic and symmetric. Eyes: EOM's intact, no lid lag, and anicteric sclera Mouth: no lip lesions, mucus membranes moist Cardiovascular: regular rate and rhythm with normal S1S2, systolic murmur, positive posterior tibial pulses bilaterally, and cap refill < 2 seconds. Lungs: Respirations even, regular, and unlabored on baseline 3 L O2 via nasal cannula. Lungs diminished, no wheezes, no rhonchi, no rales, no wheezing, and no accessory muscle usage. Abdominal: soft, nontender to palpation, no guarding, no appreciable organomegaly Ext: ROM intact. No gross muscle atrophy, scant lower extremity edema, no contractures Neuro: Speech clear, face symmetrical and CN II-XII grossly intact with no noted focal neuro deficits Psych: Alert and oriented to person, place, time, and situation. Appropriate and pleasant affect. A total of 40 minutes of time were spent preparing this complex discharge summary. Patient was discharged on 12/17/2024. Patient Condition at Discharge: Stable Plan - Discharge Summary New Discharge Prescriptions: New Mag Hydrox/Al Hydrox/Simeth [Maalox] 30 ml PO TID PRN #355 ml PRN Reason: acid Pantoprazole [Protonix] 40 mg PO DAILY #30 tab Continue Losartan Potassium 100 mg PO DAILY Albuterol Sulfate [Albuterol Sulfate Hfa] 2 puff INHALATION RT-Q4H PRN PRN Reason: Shortness Of Breath Albuterol Nebulized [Ventolin Nebulized] 2.5 mg INHALATION RT-QID Budesonide-Formot 160-4.5 Mcg [Symbicort 160-4.5 Mcg Inhaler] 2 puff INHALATION BID 30 Days #1 inh metFORMIN HCL [Glucophage] 500 mg PO BID 30 Days #60 tab Olopatadine HCl [Pataday Once Daily Relief] 1 drop BOTH EYES DAILY hydroCHLOROthiazide [Hydrodiuril] 25 mg PO DAILY #90 tab Metoprolol Succinate (ER) [Toprol XL] 50 mg PO DAILY predniSONE [Deltasone] 10 mg PO DAILY Fluorometholone 0.1% Ophth Sandy [Fml] 1 drops BOTH EYES TID Discharge Medication List Losartan Potassium 100 mg PO DAILY 10/30/14 [History] hydroCHLOROthiazide [Hydrodiuril] 25 mg PO DAILY #90 tab 09/30/22 [Rx] Metoprolol Succinate (ER) [Toprol XL] 50 mg PO DAILY 04/25/23 [History] Albuterol Nebulized [Ventolin Nebulized] 2.5 mg INHALATION RT-QID 05/03/24 [History] Albuterol Sulfate [Albuterol Sulfate Hfa] 2 puff INHALATION RT-Q4H PRN 05/03/24 [History] Fluorometholone 0.1% Ophth Sandy [Fml] 1 drops BOTH EYES TID 11/18/24 [History] predniSONE [Deltasone] 10 mg PO DAILY 11/18/24 [History] Budesonide-Formot 160-4.5 Mcg [Symbicort 160-4.5 Mcg Inhaler] 2 puff INHALATION BID 30 Days #1 inh 11/21/24 [Rx] metFORMIN HCL [Glucophage] 500 mg PO BID 30 Days #60 tab 11/21/24 [Rx] Olopatadine HCl [Pataday Once Daily Relief] 1 drop BOTH EYES DAILY 12/14/24 [History] Mag Hydrox/Al Hydrox/Simeth [Maalox] 30 ml PO TID PRN #355 ml 12/17/24 [Rx] Pantoprazole [Protonix] 40 mg PO DAILY #30 tab 12/17/24 [Rx] Follow up Appointment(s)/Referral(s): Po Winchester MD [Primary Care Provider] - 1 Week None,Stated [REFERRING] - 1-2 days Da Gilbert MD [STAFF PHYSICIAN] - 1 Week Activity/Diet/Wound Care/Special Instructions: As we discussed, please, follow-up with your primary care physician, . Continue medications as prescribed. Per your request, I am providing you with contact information for PCP Dr.Kyle Daphney M.D: [id number] [facility]. [facility] [id number] . Highly recommend to see your primary care physician Dr. Oneal first Discharge Disposition: HOME SELF-CARE
== END 2024-12-17 11:52 | disposition home or self-care (01) | DRG 190 ==
LOC: EC 23:32 → 6NMEDSUR 12-14 04:17 → UNDOADMOB 12-14 04:17 → 6NMEDSUR 12-14 04:58 → OBSVTOIN 12-16 14:43 → UNDODISOB 12-17 11:52
PROVIDERS: ADMIT Student in an Organized Health Care Education/Training Program; ATTEND Student in an Organized Health Care Education/Training Program
DX: J44.1 Chronic obstructive pulmonary disease with (acute) exacerbation (principal); J96.21 Acute and chronic respiratory failure with hypoxia; J96.22 Acute and chronic respiratory failure with hypercapnia; K22.2 Esophageal obstruction; B90.9 Sequelae of respiratory and unspecified tuberculosis; E11.65 Type 2 diabetes mellitus with hyperglycemia; J43.2 Centrilobular emphysema; I10 Essential (primary) hypertension; K76.9 Liver disease, unspecified; E78.5 Hyperlipidemia, unspecified; J45.909 Unspecified asthma, uncomplicated; H91.90 Unspecified hearing loss, unspecified ear; I25.2 Old myocardial infarction; K59.00 Constipation, unspecified; H93.19 Tinnitus, unspecified ear; K44.9 Diaphragmatic hernia without obstruction or gangrene; K57.90 Diverticulosis of intestine, part unspecified, without perforation or abscess without bleeding; M54.9 Dorsalgia, unspecified; Z99.81 Dependence on supplemental oxygen; Z79.51 Long term (current) use of inhaled steroids; Z79.84 Long term (current) use of oral hypoglycemic drugs; Z79.52 Long term (current) use of systemic steroids; Z79.899 Other long term (current) drug therapy; Z87.01 Personal history of pneumonia (recurrent); Z87.891 Personal history of nicotine dependence; Z96.651 Presence of right artificial knee joint; Z88.5 Allergy status to narcotic agent
CPT/HCPCS: 36415; 71046; 80053; 83735; 83880; 84484; 85025; 85610; 85730; 87636; 93005; 94640; 96365; 96366; 96375; 99291